=== PATIENT | female | born 1995 | race Caucasian/White ===

== ENCOUNTER 2021-03-03 13:52 | Emergency (ER) | payer OTHER, SELFPAY ==
--- NOTE | 2021-03-03 13:59 | PC.NURSE ---
Pt stated she needed to go to her car immediately after intake and walked out.
--- NOTE | 2021-03-03 14:17 | PC.NURSE ---
Pt never returned to dept.
== END 2021-03-04 04:39 | disposition left against medical advice (07) ==
LOC: ANHED 14:31
PROVIDERS: PCP Pediatrics
DX: Z53.21 Procedure and treatment not carried out due to patient leaving prior to being seen by health care provider (principal)
CPT/HCPCS: 99199

== ENCOUNTER 2021-06-13 08:06 | Emergency (ER) | payer OTHER, SELFPAY ==
--- NOTE | ~2021-06-13 | XR_ITS ---
EXAMINATION: XR pelvis 1-2V EXAM DATE: 06/13/2021 08:50 INDICATION: Fall On Lt Buttock,Post Pain And Bruising TECHNIQUE: Pelvis frontal projection(s) obtained and reviewed. There is no prior study for compariso n. FINDINGS: There are no acute pelvic fractures or dislocations identified. Sacrum, sacroiliac joints, sacral arcuate lines are intact. There is no subcutaneous gas. The soft tissue is unremarkable. There are no radiopaque foreign bodies. IMPRESSION: Unremarkable XR pelvis 1-2V exam. Reviewed, dictated and finalized at location D.
[2021-06-13 08:18] VITALS: BP 135/74; PULSE 99; RESP 16; TEMP 36.5; O2SAT 100
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
== END 2021-06-13 09:10 | disposition home or self-care (01) ==
PROVIDERS: Emergency Provider Registered Nurse
DX: S70.02XA Contusion of left hip, initial encounter (principal); V87.8XXA Person injured in other specified noncollision transport accidents involving motor vehicle (traffic), initial encounter; F17.290 Nicotine dependence, other tobacco product, uncomplicated
CPT/HCPCS: 72170; 81025; 99213; G0463

== ENCOUNTER 2022-12-21 10:36 | Emergency (ER) | payer SELFPAY ==
[2022-12-21 10:49] VITALS: BP 133/92; PULSE 107; RESP 16; TEMP 36.8
[2022-12-21 11:15] VITALS: BP 133/95; PULSE 92; RESP 16; O2SAT 100
[2022-12-21] MEDS: SODIUM CHLORIDE 0.9% IV 1,000 ML 999 ML IV CONT (11:54)
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
[2022-12-21] MEDS: ONDANSETRON INJ 4 MG/2 ML VIAL IV PUSH (12:00)
[2022-12-21] MEDS: PANTOPRAZOLE SODIUM IV 40 MG VIAL IV PUSH (12:00)
[2022-12-21 12:02] LABS: Basophils Absolute Auto 0.1 K/mm3 (0.0-0.1); Eosinophils Absolute Auto 0.1 K/mm3 (0-0.3); Eosinophils Percent Auto 1.1 % (0-4.4); Hematocrit 42.3 % (37.0-47.0); Hemoglobin 14.1 g/dL (12.0-15.0); Immature Granulocyte Absolute 0.04 K/mm3 (0.00-0.031); Immature Granulocyte Percent A 0.4 % (0-0.5); Lymphocytes Absolute Auto 1.01 K/mm3 (0.9-3.2); Lymphocytes Percent Auto 11.1 % (18.3-44.2); Mean Corpuscular HGB Conc 33.3 g/dl (32-36); Mean Corpuscular Hemoglobin 30.1 pg (26-34); Mean Corpuscular Volume 90.2 fl (80-100); Mean Platelet Volume 9.7 fl (7.4-10.4); Monocytes Percent Auto 11.4 % (2.6-8.5); Neutrophils Absolute Auto 6.9 K/mm3 (1.3-6.7); Platelet Count Result 275 k/mm3 (150-375); Red Blood Count 4.69 M/mm3 (4.2-5.4); Red Cell Distribution Width 13.7 % (11.5-14.5); White Blood Count 9.1 K/mm3 (4.5-10.0)
[2022-12-21 12:03] VITALS: BP 125/94; PULSE 81; RESP 22; O2SAT 98
[2022-12-21 12:11] LABS: Prothrombin Time 13.6 Seconds (11.1-14.7)
[2022-12-21 12:13] LABS: Add Urine Microscopic? YES; Appearance Urine Clear (Clear); Bacteria Urine Rare /hpf; Bilirubin Urine Negative (Negative); Blood Urine Negative (Negative); Color Urine Yellow (Yellow); Glucose Urine UA Negative (Negative); Ketones Urine 1+ mg/dL (Negative); Leukocyte Esterase Ur Negative LEU/UL (Negative); Nitrate Urine Negative (Negative); Non Pathogenic Casts 0-2; Protein Urine Trace mg/dL (Negative); Squamous Epithelial Cell Urine Occasional /hpf (Few); Urobilinogen Urine 0.2 mg/dL (<2.0); WBC Urine 0-5 /hpf
[2022-12-21 12:15] LABS: Alanine Aminotransferase 45 U/L (6-35); Alkaline Phosphatase 79 U/L (38-126); Anion Gap 12 mmol/L (8-16); Aspartate Amino Transferase 51 U/L (14-36); Bilirubin,Total 0.9 mg/dL (0.2-1.3); Blood Urea Nitrogen 11 mg/dL (7-17); Calcium 9.2 mg/dL (8.4-10.2); Carbon Dioxide 20 mmol/L (22-30); Chloride 102 mmol/L (98-107); Estimated CRCL calculation 105 ml/min; Estimated Glomerular Filt Rate > 60; Glucose 83 mg/dL (65-110); Magnesium 1.7 mg/dL (1.6-2.3); Phosphorus 2.8 mg/dL (2.5-4.5); Potassium 3.8 mmol/L (3.4-5.0); Sodium 134 mmol/L (137-145)
[2022-12-21 12:40] LABS: Ethanol 20 mg/dL (<10); Lactic Acid Reflex 2.3 mmol/L (0.7-2.0)
[2022-12-21 12:53] VITALS: BP 133/84; PULSE 113; RESP 14; O2SAT 100
[2022-12-21] MEDS: LORazepam INJ (*CRX) 2 MG/ML VIAL 1 MG IV PUSH (12:53)
[2022-12-21 14:25] VITALS: BP 130/80; PULSE 119; RESP 22; O2SAT 100
[2022-12-21 14:28] LABS: Benzodiazepines Screen Urine Negative (Negative)
[2022-12-21 14:30] LABS: Amphetamine Screen Urine Negative (Negative); Barbiturate Screen Urine Negative (Negative); Cannabinoid Screen Urine Positive (Negative); Cocaine Screen Urine Negative (Negative); Methadone Screen Urine Negative (Negative); Opiate Screen Urine Negative (Negative); Phencyclidine Screen Urine Negative (Negative)
--- NOTE | 2022-12-21 14:41 | PCCCNOTE ---
met with patient bedside,patient is alert and oriented x 4, I ADL and came to ER for Alcohol withdraw and wants hlp. CC met with patient whom is agreeable with a referral to Luis Armando with [facility]. CC printed facesheet and gave to Luis Armando. Luis Armando [phone], made aware that DR would like patient to be seen prior to dc. CC will continue to follow.
[2022-12-21 15:25] LABS: Reflex Lactic Acid Yes or No Add Lactic
[2022-12-21 15:35] VITALS: BP 129/78; PULSE 116; RESP 16; O2SAT 100
== END 2022-12-21 15:37 | disposition home or self-care (01) ==
PROVIDERS: Nurse Practitioner Family; Emergency Provider Emergency Medicine
DX: F10.239 Alcohol dependence with withdrawal, unspecified (principal); Y90.1 Blood alcohol level of 20-39 mg/100 ml; G47.30 Sleep apnea, unspecified; F17.290 Nicotine dependence, other tobacco product, uncomplicated
CPT/HCPCS: 36415; 80053; 80307; 81001; 83605; 83735; 84100; 85025; 85610; 96361; 96365; 96366; 96375; 99284; C9113; J2060; J2405; J3411; J3475; J7030

== ENCOUNTER 2024-06-16 09:14 | Emergency (ER) | payer SELFPAY ==
--- NOTE | ~2024-06-16 | US_ITS ---
EXAMINATION: US OB <=14 wk fetus w TV DATE: 06/16/2024 11:51 CDT INDICATION: Vaginal bleeding in early COMPARISON: None TECHNIQUE: Real-time transabdominal obstetric ultrasound. FINDINGS: 2 para 0 Estimated date of delivery by last menstrual period is 02/17/2025 The uterus measures 9.8 x 5.6 x 5.3 cm. A gestational sac is identified within the uterus. A pole is identified, with a crown-rump length that measures 1.35 cm, corresponding to an appro ximate gestational age of 7 weeks and 4 days. cardiac activity is identified at a rate of 160 bpm. The right ovary measures 3.4 x 3.2 x 1.8 cm. Right-sided corpus luteal cyst is suspected measuring 2. 3 cm in greatest dimension The left ovary measures 2.4 x 1.5 x 1.6 cm. The cervix measures approximately 4.7 cm in length, with trace free fluid Estimated date of delivery by ultrasound is 01/29/2025 IMPRESSION: Single intrauterine gestation with an approximate gestational age of 7 weeks and 4 days, with c ardiac activity identified. Trace free fluid within the cervix, as detailed above. Reviewed, dictated and finalized at location A. IMPRESSION: Single intrauterine gestation with an approximate gestational age of 7 weeks an d 4 days, with cardiac activity identified. Trace free fluid within the cervix, as detailed above.
--- OUTSIDE RECORDS SUMMARY | 2024-06-16 09:21 | XMS_ITS | Encounter Summary ---
Author Organization [facility] Address [address] [place] [address] Care Team Providers Care Information Support Project Manager Name Role Phone Unavailable Primary Care Provider Unavailabl e Encounter Details Date Type Department Care Team (Late st Contact Info) Description 04/29/1999 Outpatient Historical [facility] Pediatric[facility] [place] [address] [place] [address] Moises Guerrero Social History Tobacco Use Types Packs/Day Years Used Date Smoking Tobacco: Never Assessed Comments Unknown Sex and Gender Information Value Date Recorded Sex Assigned at Not on file Legal Sex Female 2:44 AM BANDER 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
--- OUTSIDE RECORDS SUMMARY | 2024-06-16 09:21 | XMS_ITS | Encounter Summary ---
Author Organization [facility] Address [address] [place] [address] Care Team Providers Care Proof Operator Name Role Phone Unavailable Primary Care Provider Unavailabl e Encounter Details Date Type Department Care Team (Late st Contact Info) Description 02/05/2000 Outpatient Historical [facility] Pediatrics [place] [address] [place] [address] Kashmir Gunn MD [address] [place] [address] Social History Tobacco Use Types Packs/Day Years Used Date Smoking Tobacco: Never Assessed Comments Unknown Sex and Gender Information Value Date Recorded Sex Assigned at Not on file Legal Sex Female 2:44 AM EVIDENCE SPECIALIST Gender Identity Not on file Sexual Orientation Not on file documented as of this encounter Plan of Treatment Not on file documented as of this encounter Visit Diagnoses Not on filedocumented in this encounter
--- OUTSIDE RECORDS SUMMARY | 2024-06-16 09:21 | XMS_ITS | Encounter Summary ---
Author Organization [facility] Address [address] [place] [address] Care Team Providers Care Fishing Captain Name Role Phone Unavailable Primary Care Provider Unavailabl e Encounter Details Date Type Department Care Team (Late st Contact Info) Description 05/29/1999 Outpatient Historical [facility] [place] [address] [place] [address] Moises Guerrero Social History Tobacco Use Types Packs/Day Years Used Date Smoking Tobacco: Never Assessed Comments Unknown Sex and Gender Information Value Date Recorded Sex Assigned at Not on file Legal Sex Female 2:44 AM TILE GRADER Gender Identity Not on file Sexual Orientation Not on file documented as of this encounter Plan of Treatment Not on file documented as of this encounter Visit Diagnoses Not on filedocumented in this encounter
--- OUTSIDE RECORDS SUMMARY | 2024-06-16 09:21 | XMS_ITS | Clinical Summary ---
Author Organization [facility] Address [address] [place] [address] Phone Care Team Providers Care Dry Paste Supervisor Name Role Phone Varun Chavez MD Primary Care Provider Allergies Active Allergy Reactions Criticality Noted Date Comments Sulfa Antibiotics Hives 11/13/2021 Medications amphetamine-dextro amphetamine (Adderall XR) 15 MG CAPSULE SR 24 HRIndications:Atte ntion deficit hyperactivity disorder (ADHD), predominantly inattentive type Take 1 Capsule by mouth every morning. 30 Capsule 3 Active Active Problems Problem Noted Date Diagnosed Date Generalized anxiety disorder 11/24/2021 MDD (major depressive disorder), recurrent episo de 11/24/2021 Family History Medical History Relation Name Comments Anxiety disorder Brother Christopher (27) Depression Brother Mykelopher (27) No Known Problems Father Óscar Anxiety disorder Half-Sister Eileen (19) Depression Half-Sister Eileen (19) Anxiety disorder Mother Luba Depression Mother Luba Anxiety disorder Sister Willie (28) Thyroid Cancer Sister Willie (28) Relation Name Status Comments Brother Mykelopher (27) Alive Father Óscar Alive Half-Sister Eileen (19) Alive Mother Luba Alive Sister Willei (28) Alive Social History Tobacco Use Types Packs/Day Years Used Date Smoking Tobacco: Never Passive Smoke Exposure: Never Smokeless Tobacco: Never Alcohol Use Standard Drinks/Week Comments Never 0 (1 standard drink = 0.6 oz pur e alcohol) Has never drank alcohol PHQ-2 Answer Date Recorded Total Score - Questions 1-9 0 10/30 Sexually Active Control Partners Comments Yes Male Comments No Sex and Gender Information Value Date Recorded Sex Assigned at Not on file Legal Sex Female 9:13 AM CDT Gender Identity Not on file Sexual Orientation Not on file Last Filed Vital Signs Vital Sign Reading Time Taken Comments Blood Pressure 110/68 05/14/2022 11:33 AM CDT Pulse 74 05/14/2022 11:33 AM CDT Temperature 36.5 C (97.7 F) 05/14/2022 11:33 AM CDT Respiratory Rate - - Oxygen Saturation 99% 05/14/2022 11:33 AM CDT Inhaled Oxygen Concentration - - Weight 54.4 kg (120 lb) 05/14/2022 11:33 AM CDT Height 162.6 cm (5' 4 ) 05/14/2022 11:33 AM CDT Body Mass Index 20.6 05/14/2022 11:33 AM CDT Plan of Treatment Health Maintenance Due Date Last Done Comments Hepatitis C Virus (HCV) Screening 1997 TdaP Immunization 1997 Human Papillomavirus (HPV) Immunization (1 - 3-dose series) 2012 Hepatitis B Immunization (1 of 3 - 19+ 3-dose series) 2016 Pap Smear 2018 SARS-COV-2 Immunization ( - 2023- season) 2023 Influenza Immunization (Se[place] on Ended) 2024 Respiratory Syncytial Virus (RSV) Immunization (Adult) (1 - 1-dose 75+ series) 2072 Meningococcal Immunization (ACWY) Aged Out No longer eligible based on patient's age to complete this topic Pneumococcal Immunization Combined Aged Out No longer eligible based on patient's age to complete this topic Rotavirus Immunization Aged Out No lo nger eligible based on patient's age to complete this topic Goals Goal Patient Goal Type Associated Problems Recent Progress Patient-Stated? Author reduce symptoms of anxiety and depression Behavioral Health On track(2021 2:25 PM CDT) No Sandra Rich LCSW Note: Goal/Objective: Reduce symptoms of anxiety and depression. Anticipated Time Frame for Goal Completion: 6 months Goal Reviewed with: patient Readiness to change: Thinking about making a change Department associated with goal: [facility] Steps to achieve goal: will attend counseling/psychotherapy sessions at least once monthly, at least 6 sessions, utilizing individual and/or group sessions to express thoughts and feelings. to identify, verbalize and process at least three contributing factors/triggers to anxiety and depression. to identify and verbalize at least three actions/skills to prevent and/or cope with anxiety and depression. to put into action, at least one time weekly, for one month, an action/skill to prevent and or cope with anxiety and depression. how I feel about myself Behavioral Health On track(2021 2:25 PM CDT) Yes Sandra Rich, [facility] Insurance MEDICAID [employer] Care Teams Dry Paste Supervisor Relationship Specialty Start Date End Date Varun Chavez MD [address] [place] [address] PCP - General Internal Medicine 11/13/21
--- OUTSIDE RECORDS SUMMARY | 2024-06-16 09:21 | XMS_ITS | Encounter Summary ---
Author Organization [facility] Address [address] [place] [address] Care Team Providers Care Excavator Operator Name Role Phone Unavailable Primary Care Provider Unavailabl e Encounter Details Date Type Department Care Team (Late st Contact Info) Description 12/17/1998 Outpatient Historical [facility] Pediatrics [place] [address] [place] [address] Moises Guerrero Social History Tobacco Use Types Packs/Day Years Used Date Smoking Tobacco: Never Assessed Comments Unknown Sex and Gender Information Value Date Recorded Sex Assigned at Not on file Legal Sex Female 2:44 AM GOLF CLUB FACER Gender Identity Not on file Sexual Orientation Not on file documented as of this encounter Plan of Treatment Not on file documented as of this encounter Visit Diagnoses Not on filedocumented in this encounter
--- OUTSIDE RECORDS SUMMARY | 2024-06-16 09:21 | XMS_ITS | Encounter Summary ---
Author Organization [facility] Address [address] [place] [address] Care Team Providers Care Physicist Cryogenics Name Role Phone Unavailable Primary Care Provider Unavailabl e Encounter Details Date Type Department Care Team (Late st Contact Info) Description 10/25/1998 Outpatient Historical [facility] Pediatrics [place] [address] [place] [address] Moises Guerrero Social History Tobacco Use Types Packs/Day Years Used Date Smoking Tobacco: Never Assessed Comments Unknown Sex and Gender Information Value Date Recorded Sex Assigned at Not on file Legal Sex Female 2:44 AM DRY STARCH 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
--- OUTSIDE RECORDS SUMMARY | 2024-06-16 09:21 | XMS_ITS | Encounter Summary ---
Author Organization [facility] Address [address] [place] [address] Care Team Providers Care Supervisor Aluminum Boat Assembly Name Role Phone Unavailable Primary Care Provider Unavailabl e Encounter Details Date Type Department Care Team (Late st Contact Info) Description 07/25/1999 Outpatient Historical [facility] Pediatrics [place] [address] [place] [address] Moises Guerrero Social History Tobacco Use Types Packs/Day Years Used Date Smoking Tobacco: Never Assessed Comments Unknown Sex and Gender Information Value Date Recorded Sex Assigned at Not on file Legal Sex Female 2:44 AM BEND SORTER Gender Identity Not on file Sexual Orientation Not on file documented as of this encounter Plan of Treatment Not on file documented as of this encounter Visit Diagnoses Not on filedocumented in this encounter
--- OUTSIDE RECORDS SUMMARY | 2024-06-16 09:21 | XMS_ITS | Encounter Summary ---
Author Organization [facility] Address [address] [place] [address] Care Team Providers Care Iron Bender Name Role Phone Unavailable Primary Care Provider Unavailabl e Encounter Details Date Type Department Care Team (Late st Contact Info) Description 02/13/2003 Outpatient Historical [facility] [address] [place] [address] Murtaza Mcnulty MD [address] [place] [address] Social History Tobacco Use Types Packs/Day Years Used Date Smoking Tobacco: Never Assessed Comments Unknown Sex and Gender Information Value Date Recorded Sex Assigned at Not on file Legal Sex Female 2:44 AM CORRECTIONAL PROGRAM SPECIALIST Gender Identity Not on file Sexual Orientation Not on file documented as of this encounter Plan of Treatment Not on file documented as of this encounter Visit Diagnoses Not on filedocumented in this encounter
--- OUTSIDE RECORDS SUMMARY | 2024-06-16 09:21 | XMS_ITS | Encounter Summary ---
Author Organization [facility] Address [address] [place] [address] Care Team Providers Care Printed Circuit Board Pcb Designer Name Role Phone Unavailable Primary Care Provider Unavailabl e Encounter Details Date Type Department Care Team (Late st Contact Info) Description 07/10/1998 Outpatient Historical [facility] Pediatrics [place] [address] [place] [address] Moises Guerrero Social History Tobacco Use Types Packs/Day Years Used Date Smoking Tobacco: Never Assessed Comments Unknown Sex and Gender Information Value Date Recorded Sex Assigned at Not on file Legal Sex Female 2:44 AM WEIGHT COUNT 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
--- OUTSIDE RECORDS SUMMARY | 2024-06-16 09:21 | XMS_ITS | Encounter Summary ---
Author Organization [facility] Address [address] [place] [address] Care Team Providers Care C Consultant Name Role Phone Unavailable Primary Care Provider Unavailabl e Encounter Details Date Type Department Care Team (Late st Contact Info) Description 11/28/1998 Outpatient Historical [facility] Pediatrics [place] [address] [place] [address] Moises Guerrero Social History Tobacco Use Types Packs/Day Years Used Date Smoking Tobacco: Never Assessed Comments Unknown Sex and Gender Information Value Date Recorded Sex Assigned at Not on file Legal Sex Female 2:44 AM PUPPY TRAINER Gender Identity Not on file Sexual Orientation Not on file documented as of this encounter Plan of Treatment Not on file documented as of this encounter Visit Diagnoses Not on filedocumented in this encounter
--- OUTSIDE RECORDS SUMMARY | 2024-06-16 09:21 | XMS_ITS | Encounter Summary ---
Author Organization [facility] Address [address] [place] [address] Care Team Providers Care Kit Assembler Name Role Phone Unavailable Primary Care Provider Unavailabl e Encounter Details Date Type Department Care Team (Late st Contact Info) Description 08/25/2001 Outpatient Historical [facility] Pediatrics [place] [address] [place] [address] Kashmir Gunn MD [address] [place] [address] Social History Tobacco Use Types Packs/Day Years Used Date Smoking Tobacco: Never Assessed Comments Unknown Sex and Gender Information Value Date Recorded Sex Assigned at Not on file Legal Sex Female 2:44 AM VINE PRUNER Gender Identity Not on file Sexual Orientation Not on file documented as of this encounter Plan of Treatment Not on file documented as of this encounter Visit Diagnoses Not on filedocumented in this encounter
--- OUTSIDE RECORDS SUMMARY | 2024-06-16 09:21 | XMS_ITS | Encounter Summary ---
Author Organization [facility] Address [address] [place] [address] Care Team Providers Care Sex Therapist Name Role Phone Unavailable Primary Care Provider Unavailabl e Encounter Details Date Type Department Care Team (Late st Contact Info) Description 08/11/1999 Outpatient Historical [facility] Pediatric[facility] [place] [address] [place] [address] Moises Guerrero Social History Tobacco Use Types Packs/Day Years Used Date Smoking Tobacco: Never Assessed Comments Unknown Sex and Gender Information Value Date Recorded Sex Assigned at Not on file Legal Sex Female 2:44 AM PIPE FITTER GAS PIPE Gender Identity Not on file Sexual Orientation Not on file documented as of this encounter Plan of Treatment Not on file documented as of this encounter Visit Diagnoses Not on filedocumented in this encounter
--- OUTSIDE RECORDS SUMMARY | 2024-06-16 09:21 | XMS_ITS | Encounter Summary ---
Author Organization [facility] Address [address] [place] [address] Care Team Providers Care Bindery Chief Name Role Phone Unavailable Primary Care Provider Unavailabl e Encounter Details Date Type Department Care Team (Late st Contact Info) Description 09/06/1998 Outpatient Historical [facility] Pediatrics [place] [address] [place] [address] Moises Guerrero Social History Tobacco Use Types Packs/Day Years Used Date Smoking Tobacco: Never Assessed Comments Unknown Sex and Gender Information Value Date Recorded Sex Assigned at Not on file Legal Sex Female 2:44 AM METALSMITH HELPER Gender Identity Not on file Sexual Orientation Not on file documented as of this encounter Plan of Treatment Not on file documented as of this encounter Visit Diagnoses Not on filedocumented in this encounter
--- OUTSIDE RECORDS SUMMARY | 2024-06-16 09:21 | XMS_ITS | Encounter Summary ---
Author Organization [facility] Address [address] [place] [address] Care Team Providers Care Cna Gna Name Role Phone Unavailable Primary Care Provider Unavailabl e Encounter Details Date Type Department Care Team (Late st Contact Info) Description 05/31/1998 Outpatient Historical [facility] Pediatrics [address] [place] [address] Moises Guerrero Social History Tobacco Use Types Packs/Day Years Used Date Smoking Tobacco: Never Assessed Comments Unknown Sex and Gender Information Value Date Recorded Sex Assigned at Not on file Legal Sex Female 2:44 AM COMPUTING SYSTEMS MECHANIC Gender Identity Not on file Sexual Orientation Not on file documented as of this encounter Plan of Treatment Not on file documented as of this encounter Procedures Procedure Name Priority Date/Time Associated Diagnosis Comments CHG POLIOVIRUS VACCINE LIVE ORAL VFC 05/31/1998 12:00 AM COMPUTING SYSTEMS MECHANIC documented in this encounter Visit Diagnoses Not on filedocumented in this encounter
--- OUTSIDE RECORDS SUMMARY | 2024-06-16 09:21 | XMS_ITS | Encounter Summary ---
Author Organization [facility] Address [address] [place] [address] Care Team Providers Care Track Sweeper Name Role Phone Unavailable Primary Care Provider Unavailabl e Encounter Details Date Type Department Care Team (Late st Contact Info) Description 07/09/2004 Outpatient Historical [facility] Pediatrics [address] [place] [address] Murtaza Mcnulty MD [address] [place] [address] Social History Tobacco Use Types Packs/Day Years Used Date Smoking Tobacco: Never Assessed Comments Unknown Sex and Gender Information Value Date Recorded Sex Assigned at Not on file Legal Sex Female 2:44 AM MANAGER FIXED INCOME Gender Identity Not on file Sexual Orientation Not on file documented as of this encounter Plan of Treatment Not on file documented as of this encounter Visit Diagnoses Not on filedocumented in this encounter
--- OUTSIDE RECORDS SUMMARY | 2024-06-16 09:21 | XMS_ITS | Encounter Summary ---
Author Organization [facility] Address [address] [place] [address] Care Team Providers Care Decorative Engraver Apprentice Name Role Phone Unavailable Primary Care Provider Unavailabl e Encounter Details Date Type Department Care Team (Late st Contact Info) Description 01/05/[address] [facility] Pediatrics [place] [address] [facility] [address] [place] [address] Kashmir Gunn MD [address] [facility] [address] [place] [address] Social History Tobacco Use Types Packs/Day Years Used Date Smoking Tobacco: Never Assessed Comments Unknown Sex and Gender Information Value Date Recorded Sex Assigned at Not on file Legal Sex Female 2:44 AM CORROSION CONTROL TECHNICIAN Gender Identity Not on file Sexual Orientation Not on file documented as of this encounter Plan of Treatment Not on file documented as of this encounter Visit Diagnoses Not on filedocumented in this encounter
--- OUTSIDE RECORDS SUMMARY | 2024-06-16 09:21 | XMS_ITS | Encounter Summary ---
Author Organization [facility] Address [address] [place] [address] Care Team Providers Care Crib Tender Name Role Phone Unavailable Primary Care Provider Unavailabl e Encounter Details Date Type Department Care Team (Late st Contact Info) Description 11/28/1998 Outpatient Historical [facility] Pediatrics [place] [address] [place] [address] Moises Guerrero Social History Tobacco Use Types Packs/Day Years Used Date Smoking Tobacco: Never Assessed Comments Unknown Sex and Gender Information Value Date Recorded Sex Assigned at Not on file Legal Sex Female 2:44 AM DYSLEXIA 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
--- OUTSIDE RECORDS SUMMARY | 2024-06-16 09:21 | XMS_ITS | Encounter Summary ---
Author Organization [facility] Address [address] [place] [address] Care Team Providers Care Candy Puller Name Role Phone Unavailable Primary Care Provider Unavailabl e Encounter Details Date Type Department Care Team (Late st Contact Info) Description 06/01/2000 Outpatient Historical [facility] Pediatrics [place] [address] [place] [address] Kashmir Gunn MD [address] [place] [address] Social History Tobacco Use Types Packs/Day Years Used Date Smoking Tobacco: Never Assessed Comments Unknown Sex and Gender Information Value Date Recorded Sex Assigned at Not on file Legal Sex Female 2:44 AM CERTIFIED PHARMACY TECH Gender Identity Not on file Sexual Orientation Not on file documented as of this encounter Plan of Treatment Not on file documented as of this encounter Visit Diagnoses Not on filedocumented in this encounter
--- OUTSIDE RECORDS SUMMARY | 2024-06-16 09:21 | XMS_ITS | Encounter Summary ---
Author Organization [facility] Address [address] [place] [address] Care Team Providers Care Candy Forming Machine Operator Name Role Phone Unavailable Primary Care Provider Unavailabl e Encounter Details Date Type Department Care Team (Late st Contact Info) Description 12/03/1998 Outpatient Historical [facility] Pediatrics [place] [address] [place] [address] Moises Guerrero Social History Tobacco Use Types Packs/Day Years Used Date Smoking Tobacco: Never Assessed Comments Unknown Sex and Gender Information Value Date Recorded Sex Assigned at Not on file Legal Sex Female 2:44 AM CALL CENTER RECRUITER Gender Identity Not on file Sexual Orientation Not on file documented as of this encounter Plan of Treatment Not on file documented as of this encounter Visit Diagnoses Not on filedocumented in this encounter
--- OUTSIDE RECORDS SUMMARY | 2024-06-16 09:21 | XMS_ITS | Encounter Summary ---
Author Organization [facility] Address [address] [place] [address] Care Team Providers Care Kiln Tester Name Role Phone Unavailable Primary Care Provider Unavailabl e Encounter Details Date Type Department Care Team (Late st Contact Info) Description 01/07/1998 Outpatient Historical [facility] Pediatrics [place] [address] [place] [address] Moises Guerrero Social History Tobacco Use Types Packs/Day Years Used Date Smoking Tobacco: Never Assessed Comments Unknown Sex and Gender Information Value Date Recorded Sex Assigned at Not on file Legal Sex Female 2:44 AM ETL TESTER Gender Identity Not on file Sexual Orientation Not on file documented as of this encounter Plan of Treatment Not on file documented as of this encounter Visit Diagnoses Not on filedocumented in this encounter
--- OUTSIDE RECORDS SUMMARY | 2024-06-16 09:21 | XMS_ITS | Encounter Summary ---
Author Organization [facility] Address [address] [place] [address] Care Team Providers Care Video Clerk Name Role Phone Unavailable Primary Care Provider Unavailabl e Encounter Details Date Type Department Care Team (Late st Contact Info) Description 04/03/2000 Outpatient Historical [facility] Pediatrics [place] [address] [facility] [address] [place] [address] Luis Conklin MD [address] [place] [address] Social History Tobacco Use Types Packs/Day Years Used Date Smoking Tobacco: Never Assessed Comments Unknown Sex and Gender Information Value Date Recorded Sex Assigned at Not on file Legal Sex Female 2:44 AM NURSE CLINICAL Gender Identity Not on file Sexual Orientation Not on file documented as of this encounter Plan of Treatment Not on file documented as of this encounter Visit Diagnoses Not on filedocumented in this encounter
--- OUTSIDE RECORDS SUMMARY | 2024-06-16 09:21 | XMS_ITS | Encounter Summary ---
Author Organization [facility] Address [address] [place] [address] Care Team Providers Care County Agricultural Agent Name Role Phone Unavailable Primary Care Provider Unavailabl e Encounter Details Date Type Department Care Team (Late st Contact Info) Description 06/06/2001 Outpatient Historical [facility] Pediatrics [place] [address] [facility] [address] [place] [address] Kashmir Gunn MD [address] [facility] [address] [place] [address] Social History Tobacco Use Types Packs/Day Years Used Date Smoking Tobacco: Never Assessed Comments Unknown Sex and Gender Information Value Date Recorded Sex Assigned at Not on file Legal Sex Female 2:44 AM FABRICATOR INDUSTRIAL FURNACE Gender Identity Not on file Sexual Orientation Not on file documented as of this encounter Plan of Treatment Not on file documented as of this encounter Visit Diagnoses Not on filedocumented in this encounter
--- OUTSIDE RECORDS SUMMARY | 2024-06-16 09:21 | XMS_ITS | Encounter Summary ---
Author Organization [facility] Address [address] [place] [address] Care Team Providers Care Coroner/Medical Examiner Name Role Phone Unavailable Primary Care Provider Unavailabl e Encounter Details Date Type Department Care Team (Late st Contact Info) Description 11/22/1998 Outpatient Historical [facility] [place], Authorized P NO ADDRESS ON FILE Face, neck, and scalp, except eye, abrasion or friction burn, without mention of infection (Primary Dx) Social History Tobacco Use Types Packs/Day Years Used Date Smoking Tobacco: Never Assessed Comments Unknown Sex and Gender Information Value Date Recorded Sex Assigned at Not on file Legal Sex Female 2:44 AM HAND WASHER Gender Identity Not on file Sexual Orientation Not on file documented as of this encounter Plan of Treatment Not on file documented as of this encounter Visit Diagnoses Diagnosis Face, neck, and scalp, except eye, abrasion or friction burn, without mention of infection- Primary documented in this encounter
--- OUTSIDE RECORDS SUMMARY | 2024-06-16 09:21 | XMS_ITS | Encounter Summary ---
Author Organization [facility] Address [address] [place] [address] Care Team Providers Care Application Support Developer Name Role Phone Unavailable Primary Care Provider Unavailabl e Encounter Details Date Type Department Care Team (Late st Contact Info) Description 04/09/1998 Outpatient Historical [facility] Pediatrics [place] [address] [place] [address] Moises Guerrero Social History Tobacco Use Types Packs/Day Years Used Date Smoking Tobacco: Never Assessed Comments Unknown Sex and Gender Information Value Date Recorded Sex Assigned at Not on file Legal Sex Female 2:44 AM HARVESTER 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
--- OUTSIDE RECORDS SUMMARY | 2024-06-16 09:21 | XMS_ITS | Encounter Summary ---
Author Organization [facility] Address [address] [place] [address] Care Team Providers Care Land Measurer Name Role Phone Unavailable Primary Care Provider Unavailabl e Encounter Details Date Type Department Care Team (Late st Contact Info) Description 01/06/1999 Outpatient Historical [facility] Pediatrics [place] [address] [place] [address] Moises Guerrero Social History Tobacco Use Types Packs/Day Years Used Date Smoking Tobacco: Never Assessed Comments Unknown Sex and Gender Information Value Date Recorded Sex Assigned at Not on file Legal Sex Female 2:44 AM ASSISTANT COUNTY ATTORNEY Gender Identity Not on file Sexual Orientation Not on file documented as of this encounter Plan of Treatment Not on file documented as of this encounter Visit Diagnoses Not on filedocumented in this encounter
--- OUTSIDE RECORDS SUMMARY | 2024-06-16 09:21 | XMS_ITS | Encounter Summary ---
Author Organization [facility] Address [address] [place] [address] Care Team Providers Care Transportation Planning Engineer Name Role Phone Unavailable Primary Care Provider Unavailabl e Encounter Details Date Type Department Care Team (Late st Contact Info) Description 08/23/1998 Outpatient Historical [facility] Pediatrics [place] [address] [place] [address] Moises Guerrero Social History Tobacco Use Types Packs/Day Years Used Date Smoking Tobacco: Never Assessed Comments Unknown Sex and Gender Information Value Date Recorded Sex Assigned at Not on file Legal Sex Female 2:44 AM COMPTROLLER Gender Identity Not on file Sexual Orientation Not on file documented as of this encounter Plan of Treatment Not on file documented as of this encounter Visit Diagnoses Not on filedocumented in this encounter
--- OUTSIDE RECORDS SUMMARY | 2024-06-16 09:21 | XMS_ITS | Encounter Summary ---
Author Organization [facility] Address [address] [place] [address] Care Team Providers Care Continuous Drier Helper Name Role Phone Unavailable Primary Care Provider Unavailabl e Encounter Details Date Type Department Care Team (Late st Contact Info) Description 05/31/1998 Outpatient Historical [facility] Pediatrics [address] [place] [address] Moises Guerrero Social History Tobacco Use Types Packs/Day Years Used Date Smoking Tobacco: Never Assessed Comments Unknown Sex and Gender Information Value Date Recorded Sex Assigned at Not on file Legal Sex Female 2:44 AM SPECIAL DELIVERY CLERK Gender Identity Not on file Sexual Orientation Not on file documented as of this encounter Plan of Treatment Not on file documented as of this encounter Procedures Procedure Name Priority Date/Time Associated Diagnosis Comments CHG HEPATITIS B VACCINE PED ADOL IM 3 DOSE VFC 05/31/1998 12:00 AM SPECIAL DELIVERY CLERK CHG DTAP VACCINE <7 YO IM VFC 05/31/1998 12:00 AM SPECIAL DELIVERY CLERK documented in this encounter Visit Diagnoses Not on filedocumented in this encounter
--- OUTSIDE RECORDS SUMMARY | 2024-06-16 09:21 | XMS_ITS | Encounter Summary ---
Author Organization [facility] Address [address] [place] [address] Care Team Providers Care Bankruptcy Assistant Name Role Phone Unavailable Primary Care Provider Unavailabl e Encounter Details Date Type Department Care Team (Late st Contact Info) Description 09/21/2000 Outpatient Historical [facility] Pediatrics [place] [address] [facility] [address] [place] [address] Edgar Morton MD [address] [facility] [address] [place] [address] Social History Tobacco Use Types Packs/Day Years Used Date Smoking Tobacco: Never Assessed Comments Unknown Sex and Gender Information Value Date Recorded Sex Assigned at Not on file Legal Sex Female 2:44 AM FILER REPAIRER Gender Identity Not on file Sexual Orientation Not on file documented as of this encounter Plan of Treatment Not on file documented as of this encounter Visit Diagnoses Not on filedocumented in this encounter
--- OUTSIDE RECORDS SUMMARY | 2024-06-16 09:21 | XMS_ITS | Encounter Summary ---
Author Organization [facility] Address [address] [place] [address] Care Team Providers Care Transition Mgr Name Role Phone Unavailable Primary Care Provider Unavailabl e Encounter Details Date Type Department Care Team (Late st Contact Info) Description 03/05/2001 Outpatient Historical [facility] Pediatrics [place] [address] [facility] [address] [place] [address] Luis Conklin MD [address] [place] [address] Social History Tobacco Use Types Packs/Day Years Used Date Smoking Tobacco: Never Assessed Comments Unknown Sex and Gender Information Value Date Recorded Sex Assigned at Not on file Legal Sex Female 2:44 AM NIGHT TIME NANNY Gender Identity Not on file Sexual Orientation Not on file documented as of this encounter Plan of Treatment Not on file documented as of this encounter Visit Diagnoses Not on filedocumented in this encounter
--- OUTSIDE RECORDS SUMMARY | 2024-06-16 09:21 | XMS_ITS | Encounter Summary ---
Author Organization [facility] Address [address] [place] [address] Care Team Providers Care Strip Machine Tender Name Role Phone Unavailable Primary Care Provider Unavailabl e Encounter Details Date Type Department Care Team (Late st Contact Info) Description 08/23/1998 Outpatient Historical [facility] Pediatrics [place] [address] [place] [address] Moises Guerrero Social History Tobacco Use Types Packs/Day Years Used Date Smoking Tobacco: Never Assessed Comments Unknown Sex and Gender Information Value Date Recorded Sex Assigned at Not on file Legal Sex Female 2:44 AM UTILITY PLANT OPERATIVE Gender Identity Not on file Sexual Orientation Not on file documented as of this encounter Plan of Treatment Not on file documented as of this encounter Visit Diagnoses Not on filedocumented in this encounter
--- OUTSIDE RECORDS SUMMARY | 2024-06-16 09:21 | XMS_ITS | Encounter Summary ---
Author Organization [facility] Address [address] [place] [address] Care Team Providers Care Manager Books Name Role Phone Unavailable Primary Care Provider Unavailabl e Encounter Details Date Type Department Care Team (Late st Contact Info) Description 08/15/1999 Outpatient Historical [facility] Pediatrics [place] [address] [place] [address] Moises Guerrero Social History Tobacco Use Types Packs/Day Years Used Date Smoking Tobacco: Never Assessed Comments Unknown Sex and Gender Information Value Date Recorded Sex Assigned at Not on file Legal Sex Female 2:44 AM ASSISTANT DIRECTOR Gender Identity Not on file Sexual Orientation Not on file documented as of this encounter Plan of Treatment Not on file documented as of this encounter Visit Diagnoses Not on filedocumented in this encounter
--- OUTSIDE RECORDS SUMMARY | 2024-06-16 09:21 | XMS_ITS | Encounter Summary ---
Author Organization [facility] Address [address] [place] [address] Care Team Providers Care Cps Team Lead Name Role Phone Unavailable Primary Care Provider Unavailabl e Encounter Details Date Type Department Care Team (Late st Contact Info) Description 11/04/2004 Outpatient Historical [facility] Pediatrics [address] [place] [address] Murtaza Mcnulty MD [address] [place] [address] Social History Tobacco Use Types Packs/Day Years Used Date Smoking Tobacco: Never Assessed Comments Unknown Sex and Gender Information Value Date Recorded Sex Assigned at Not on file Legal Sex Female 2:44 AM CHILD CUSTODY 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
--- OUTSIDE RECORDS SUMMARY | 2024-06-16 09:21 | XMS_ITS | Encounter Summary ---
Author Organization [facility] Address [address] [place] [address] Care Team Providers Care Tile Conduit Layer Name Role Phone Unavailable Primary Care Provider Unavailabl e Encounter Details Date Type Department Care Team (Late st Contact Info) Description 03/26/2000 Outpatient Historical [facility] Pediatrics [place] [address] [facility] [address] [place] [address] Kashmir Gunn MD [address] [facility] [address] [place] [address] Social History Tobacco Use Types Packs/Day Years Used Date Smoking Tobacco: Never Assessed Comments Unknown Sex and Gender Information Value Date Recorded Sex Assigned at Not on file Legal Sex Female 2:44 AM MICRO COMPUTER DATA PROCESSOR Gender Identity Not on file Sexual Orientation Not on file documented as of this encounter Plan of Treatment Not on file documented as of this encounter Visit Diagnoses Not on filedocumented in this encounter
--- OUTSIDE RECORDS SUMMARY | 2024-06-16 09:21 | XMS_ITS | Encounter Summary ---
Author Organization [facility] Address [address] [place] [address] Care Team Providers Care Sports Administrator Name Role Phone Unavailable Primary Care Provider Unavailabl e Encounter Details Date Type Department Care Team (Late st Contact Info) Description 01/14/1998 Outpatient Historical [facility] Pediatrics [place] [address] [place] [address] Moises Guerrero Social History Tobacco Use Types Packs/Day Years Used Date Smoking Tobacco: Never Assessed Comments Unknown Sex and Gender Information Value Date Recorded Sex Assigned at Not on file Legal Sex Female 2:44 AM VICE PRESIDENT NETWORK Gender Identity Not on file Sexual Orientation Not on file documented as of this encounter Plan of Treatment Not on file documented as of this encounter Visit Diagnoses Not on filedocumented in this encounter
--- OUTSIDE RECORDS SUMMARY | 2024-06-16 09:21 | XMS_ITS | Clinical Summary ---
Author Organization [facility] Address [address] [place] [address] Phone Care Team Providers Care Ed Transporter Name Role Phone Unavailable Primary Care Provider Unavailabl e Allergies Active Allergy Reactions Criticality Noted Date Comments Sulfa (Sulfonamide Antibiotics) Rash High 11/30 Medications Norethindrn A-E estradiol-Iron (MICROGESTIN FE 1.5/, 28,) 1.5 mg-30 mcg (21)/75 mg (7) tablet Take 1 Tablet by mouth daily. 1 Package 11 01/28/2016 Active Active Problems No known active problems Family History Medical History Relation Name Comments Hypertension Maternal Grandfather Hypertension Maternal Grandmother Stroke Maternal Grandmother Breast Cancer Other ggpgrandmother Relation Name Status Comments Maternal Grandfather Maternal Grandmother Other ggpgrandmother Alive Social History Tobacco Use Types Packs/Day Years Used Date Smoking Tobacco: Never Smokeless Tobacco: Never Alcohol Use Standard Drinks/Week Comments No 0 (1 standard drink = 0.6 oz pur e alcohol) Comments No Sex and Gender Information Value Date Recorded Sex Assigned at Not on file Legal Sex Female 2:44 AM BAND AND CUFF CUTTER Gender Identity Not on file Sexual Orientation Not on file Occupation Industry Job Start Date Job End Date Not on file Not on file Not on file Not on file Last Filed Vital Signs Vital Sign Reading Time Taken Comments Blood Pressure 110/80 01/28/2016 11:54 AM BAND AND CUFF CUTTER Pulse 101 01/28/2016 11:54 AM BAND AND CUFF CUTTER Temperature 37.1 C (98.7 F) 01/28/2016 11:54 AM BAND AND CUFF CUTTER Respiratory Rate 18 01/28/2016 11:54 AM BAND AND CUFF CUTTER Oxygen Saturation 97% 01/28/2016 11:54 AM BAND AND CUFF CUTTER Inhaled Oxygen Concentration - - Weight 61.7 kg (136 lb) 01/28/2016 11:54 AM BAND AND CUFF CUTTER Height 160 cm (5' 3 ) 01/28/2016 11:54 AM BAND AND CUFF CUTTER Body Mass Index 24.09 01/28/2016 11:54 AM BAND AND CUFF CUTTER Plan of Treatment Health Maintenance Due Date Last Done Comments HPV VACCINES (1 - 3-dose series) 2012 DTAP/TDAP/TD VACCINES (1 - Tdap) 2016 HEPATITIS B VACCINES (1 of 3 - 19+ 3-dose series) 10/31 CERVICAL CANCER SCREENING 2018 HPV/Cotest (21-29) 2018 PAP SMEAR 2018 INFLUENZA VACCINE (#1) 2023
--- OUTSIDE RECORDS SUMMARY | 2024-06-16 09:21 | XMS_ITS | Encounter Summary ---
Author Organization [facility] Address [address] [place] [address] Care Team Providers Care Cashier Gambling Name Role Phone Unavailable Primary Care Provider Unavailabl e Encounter Details Date Type Department Care Team (Late st Contact Info) Description 06/12/1999 Outpatient Historical [facility] [place] [address] [place] [address] Moises Guerrero Social History Tobacco Use Types Packs/Day Years Used Date Smoking Tobacco: Never Assessed Comments Unknown Sex and Gender Information Value Date Recorded Sex Assigned at Not on file Legal Sex Female 2:44 AM BUILDINGS AND GROUNDS COORDINATOR Gender Identity Not on file Sexual Orientation Not on file documented as of this encounter Plan of Treatment Not on file documented as of this encounter Visit Diagnoses Not on filedocumented in this encounter
--- OUTSIDE RECORDS SUMMARY | 2024-06-16 09:21 | XMS_ITS | Encounter Summary ---
Author Organization [facility] Address [address] [place] [address] Care Team Providers Care Automotive Detailer Name Role Phone Unavailable Primary Care Provider Unavailabl e Encounter Details Date Type Department Care Team (Late st Contact Info) Description 05/28/1998 Outpatient Historical [facility] Pediatrics [place] [address] [place] [address] Moises Guerrero Social History Tobacco Use Types Packs/Day Years Used Date Smoking Tobacco: Never Assessed Comments Unknown Sex and Gender Information Value Date Recorded Sex Assigned at Not on file Legal Sex Female 2:44 AM ASSISTANT PRODUCTION MANAGER Gender Identity Not on file Sexual Orientation Not on file documented as of this encounter Plan of Treatment Not on file documented as of this encounter Visit Diagnoses Not on filedocumented in this encounter
--- OUTSIDE RECORDS SUMMARY | 2024-06-16 09:21 | XMS_ITS ---
Author Organization [facility] Address [address] [place] [address] Phone Care Team Providers Care Shoe Laster Name Role Phone Varun Chavez MD Primary Care Provider [facility] Status:Enrolled (Active) Start date:03/29/2024 Enrollment date:03/29/2024 Related social drivers of health:Intimate Partner Violence, Social Connections, Alcohol Use, Financial Resource Strain, Stress, Physical Activity, Food Insecurity, Transportation Needs, Housing Stability, Utilities Continued Care and Services Coordination
--- OUTSIDE RECORDS SUMMARY | 2024-06-16 09:22 | XMS_ITS | Encounter Summary ---
Author Organization [facility] Address [address] [place] [address] Care Team Providers Care Polishing Machine Tender Name Role Phone Unavailable Primary Care Provider Unavailabl e Encounter Details Date Type Department Care Team (Late st Contact Info) Description 06/04/2003 Outpatient Historical [facility] Pediatric[facility] [address] [place] [address] Murtaza Mcnulty MD [address] [place] [phone] Social History Tobacco Use Types Packs/Day Years Used Date Smoking Tobacco: Never Assessed Comments Unknown Sex and Gender Information Value Date Recorded Sex Assigned at Not on file Legal 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
--- OUTSIDE RECORDS SUMMARY | 2024-06-16 09:22 | XMS_ITS | Encounter Summary ---
Author Organization [facility] Address [address] [place] [address] Care Team Providers Care Director Epidemiology Name Role Phone Unavailable Primary Care Provider Unavailabl e Encounter Details Date Type Department Care Team (Late st Contact Info) Description 02/12/2004 Outpatient Historical [facility] Pediatric[facility] [address] [place] [address] Murtaza Mcnulty MD [address] [place] [address] Social History Tobacco Use Types Packs/Day Years Used Date Smoking Tobacco: Never Assessed Comments Unknown Sex and Gender Information Value Date Recorded Sex Assigned at Not on file 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
--- OUTSIDE RECORDS SUMMARY | 2024-06-16 09:22 | XMS_ITS | Encounter Summary ---
Author Organization [facility] Address 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
--- OUTSIDE RECORDS SUMMARY | 2024-06-16 09:22 | XMS_ITS | Encounter Summary ---
Author Organization [facility] Address [address] [place] [address] Care Team Providers Care Urgent Care Name Role Phone Unavailable Primary Care Provider Unavailabl e Encounter Details Date Type Department Care Team (Late st Contact Info) Description 11/15/2003 Outpatient Historical [facility] [place] [address] [facility] [address] [place] [address] Kashmir Gunn MD [address] [facility] [address] [place] [address] Social History Tobacco Use Types Packs/Day Years Used Date Smoking Tobacco: Never Assessed Comments Unknown Sex and Gender Information Value Date Recorded Sex Assigned at Not on file 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
--- OUTSIDE RECORDS SUMMARY | 2024-06-16 09:22 | XMS_ITS | Data Portability ---
Author Organization [place] - [employer], Main Office Address [address] [place] [address] Assessment No assessment recorded. Plan of Treatment Reminders Order Date Submit Date Provider Last Modified By Organization Details Last Modified Time Details Appointments None record ed. Lab None record ed. Referral None record ed. Procedures None record ed. Surgeries None record ed. Imaging None record ed. Medication Orders None record ed. Patient TargetsNo targets recorded. Patient InstructionsNo instructions recorded. Reason for Referral None Reported. Results Created Date Observation Date Name Description Value Unit Range Abnormal Flag Note LastModifiedBy Organization Detail LastModifiedTime 08/03/1908/02/2020 glyco hemog lobin , total , blood HA1C 5.4 % 4.0-6. 0 Diabe gaby Scree alison Crite shemar: <5.7% Consi stent with absen ce of diabe gaby 5.7-6 .4% Consi stent with incre ased risk for diabe gaby (pred iabet es) >OR=6 .5% Consi stent with diabe gaby REFER ENCE: Diabe gaby Care 2016, 39(Shaw ppl.1 ):s13 -s22 Not Available [facility] (Lab) [address] [place], [address], 08/02/2020 21:21:32 08/03/1908/02/2020 TSH + free T4, serum thyroid-stim ulating hormone 1.870 uIU/m L 0.465- 4.680 Not Available [facility] (Lab) [address] [place], [address], 08/02/2020 18:47:19 08/03/1908/02/2020 T4, free, serum free T4 0.94 NG/dL 0.78-2 .19 Not Available [facility] (Lab) [address] [place], [address], 08/02/2020 18:13:37 08/03/19 21 08/02/2020 pregn elio test, serum or plasm a human chorionic gonadotropin <2.39 mIU/m L 0.00-4 .82 WEEKS OF PREGN ELIO REFER ENCE RANGE S 4 420 TO 6,230 5 620 TO 29,30 0 6 3,660 TO 108,0 00 7 10,90 0 TO 148,0 00 8 30,70 0 TO 184,0 00 9 67,20 0 TO 169,0 00 10 30,00 0 TO 167,0 00 14 15,00 0 TO 92,10 0 15 10,60 0 TO 64,20 0 16 9,000 TO 52,80 0 17 6,700 TO 47,10 0 18 6,100 TO 42,10 0 19 6,800 TO 42,90 0 Not Available [facility] (Lab) [address] [place], [address], 08/02/2020 18:13:32 08/03/19 21 08/02/2020 vitam in D, 25-hy droxy , total , serum vd25oh 46.6 NG/mL 30-100 Vitam in D Statu s: Defic ient: <20 ng/mL Insuf ficie nt: 20-29 ng/mL Suffi cient : 30-10 0 ng/mL Not Available [facility] (Lab) [address] [place], [address], 08/02/2020 18:12:47 08/03/19 21 08/02/2020 lipid panel , serum cholesterol 127 mg/dL 140-19 9 low NIH JASON NSUS RECOM MENDA TION FOR GLENIS STERO L: ADULT CHILD LOW RISK: <200 <170 BORDE RLINE : <200- 239 ----- HIGH RISK: >240 >200 Not Available [facility] (Lab) [address] [place], [address], 08/02/2020 17:46:51 08/03/19 21 08/02/2020 lipid panel , serum triglyceride s 62 mg/dL 0-150 NIH JASON NSUS REPOR T RECOM MENDA TION FOR TRIGL YCERI RENA: ADULT CHILD LOW RISK: <150 ----- BODER LINE: 150-1 99 ----- HIGH RISK: >200 ----- Not Available [facility] (Lab) [address] [place], [address], 08/02/2020 17:46:51 08/03/19 21 08/02/2020 lipid panel , serum HDL cholesterol 53 mg/dL 40- Not Available [facility] (Lab) [address] [place], [address], 08/02/2020 17:46:51 08/03/19 21 08/02/2020 lipid panel , serum LDL cholesterol, calculated 62 mg/dL 0-130 NIH JASON NSUS REPOR T RECOM MENDA TIONS FOR LDL: ADULT CHILD LOW RISK <130 <110 (OPTI MAL LDL) <100 ----- BORDE RLINE : 130-1 59 ----- HIGH RISK: >160 >130 A TRIGL YCERI DE RESUL T >400 INVAL IDATE S THE CALCU LATIO N FOR LDL FRACT IONAT ION - THE LDL RESUL T WILL NOT BE REPOR KELI. Not Available [facility] (Lab) [address] [place], [address], 08/02/2020 17:46:51 08/03/1908/02/2020 CMP, serum or plasm a sodium 139 mmol/ L 137-14 5 Not Available [facility] (Lab) [address] [place], [address], 08/02/2020 17:46:43 08/03/19 21 08/02/2020 CMP, serum or plasm a potassium 4.3 mmol/ L 3.5-5. 1 Not Available [facility] (Lab) [address] [place], [address], 08/02/2020 17:46:43 08/03/19 21 08/02/2020 CMP, serum or plasm a chloride 104 mmol/ L 98-107 Not Available [facility] (Lab) [address] [place], [address], 08/02/2020 17:46:43 08/03/19 21 08/02/2020 CMP, serum or plasm a carbon dioxide 29 mmol/ L 22-30 Not Available [facility] (Lab) [address] [place], [address], 08/02/2020 17:46:43 08/03/19 21 08/02/2020 CMP, serum or plasm a agap 10.3 mmol/ L 14-22 low Not Available [facility] (Lab) [address] [place], [address], 08/02/2020 17:46:43 08/03/19 21 08/02/2020 CMP, serum or plasm a glucose 75 mg/dL 70-99 Not Available [facility] (Lab) [address] [place], [address], 08/02/2020 17:46:43 08/03/19 21 08/02/2020 CMP, serum or plasm a BUN 10 mg/dL 8-19 Not Available [facility] (Lab) [address] [place], [address], 08/02/2020 17:46:43 08/03/19 21 08/02/2020 CMP, serum or plasm a creatinine 0.70 mg/dL 0.66-1 .25 Not Available [facility] (Lab) [address] [place], [address], 08/02/2020 17:46:43 08/03/19 21 08/02/2020 CMP, serum or plasm a GFR >60 Refer ence Range : [place] ge GFR Healt hy Adult : >60 mL/mi n/1.7 3 m2 Chron ic Kidne y Disea se: 15-60 mL/mi n/1.7 3 m2 Kidne y Failu re: <15/m L/min /1.73 m2 www.n iddk. nih.g ov MDRD study equat ion hasn' t been valid ated in child shea <18 yrs of age, pregn ant women , the elder ly >85 yrs of age, or in some racia l or ethni c subgr oups, suc as Hispa nics. Outsi de the valid ated vanda eters , estim ated GFR is less accur ate requi ring clini valarie judgm ent on a case by case basis . Clini valarie inter preta tion for other races and ages must be made by the clini smiley . Futhe rmore , any of th e limit ation s with the use of serum creat inine relat ed to nutri tom l statu s o r medic ation usage hasn' t accou nted for the MDRD Study equat ion. For perso ns < 18 yrs of age, a pedia tric GFR calcu lator can be locat ed on the [facility] websi te: https ://celeste w.germán graham.o rg/pr ofess ional s/kdo qi/gf r_cal culat or Not Available [facility] (Lab) [address] [place], [address], 08/02/2020 17:46:43 08/03/1908/02/2020 CMP, serum or plasm a alkaline phosphatase 51 U/L 38-126 Not Available [facility] (Lab) [address] [place], [address], 08/02/2020 17:46:43 08/03/1908/02/2020 CMP, serum or plasm a alanine aminotransfe rase 12 U/L 0-35 Not Available [facility] (Lab) [address] [place], [address], 08/02/2020 17:46:43 08/03/19 21 08/02/2020 CMP, serum or plasm a aspartate aminotransfe rase 21 U/L 15-37 Not Available [facility] (Lab) [address] [place], [address], 08/02/2020 17:46:43 08/03/19 21 08/02/2020 CMP, serum or plasm a bilirubin, total 0.40 mg/dL 0.20-1 .30 Not Available [facility] (Lab) [address] [place], [address], 08/02/2020 17:46:43 08/03/19 21 08/02/2020 CMP, serum or plasm a calcium 9.7 mg/dL 8.4-10 .2 Not Available [facility] (Lab) [address] [place], [address], 08/02/2020 17:46:43 08/03/1908/02/2020 CMP, serum or plasm a total protein 7.3 g/dL 6.3-8. 2 Not Available [facility] (Lab) [address] [place], [address], 08/02/2020 17:46:43 08/03/1908/02/2020 CMP, serum or plasm a albumin 4.7 g/dL 3.4-5. 0 Not Available [facility] (Lab) [address] [place], [address], 08/02/2020 17:46:43 08/03/1908/02/2020 CMP, serum or plasm a globulin 2.6 g/dL 2.6-4. 2 Not Available [facility] (Lab) [address] [place], [address], 08/02/2020 17:46:43 08/03/1908/02/2020 CMP, serum or plasm a A/G ratio 1.8 ratio 1.0-2. 0 Not Available [facility] (Lab) [address] [place], [address], 08/02/2020 17:46:43 08/03/19 21 08/02/2020 urina lysis compl ete, refle x cultu re color light- yellow Not Available [facility] (Lab) [address] [place], [address], 08/02/2020 17:27:27 08/03/19 21 08/02/2020 urina lysis compl ete, refle x cultu re appear turbid abnormal Not Available [facility] (Lab) [address] [place], [address], 08/02/2020 17:27:27 08/03/19 21 08/02/2020 urina lysis compl ete, refle x cultu re specific gravity 1.021 1.001- 1.030 Not Available [facility] (Lab) [address] [place], [address], 08/02/2020 17:27:27 08/03/19 21 08/02/2020 urina lysis compl ete, refle x cultu re pH 7.5 pH_un its 5.0-9. 0 Not Available [facility] (Lab) [address] [place], [address], 08/02/2020 17:27:27 08/03/19 21 08/02/2020 urina lysis compl ete, refle x cultu re leukocytes negati ve carmencita/u L negati ve- Not Available [facility]Lab[facility] [address] [facility] [place], [address], 08/02/2020 17:27:27 08/03/19 21 08/02/2020 urina lysis compl ete, refle x cultu re nitrite negati ve negati ve- Not Available [facility] (Lab) [address] [place], [address], 08/02/2020 17:27:27 08/03/19 21 08/02/2020 urina lysis compl ete, refle x cultu re protein negati ve mg/dL negati ve- Not Available [facility] (Lab) [address] [place], [address], 08/02/2020 17:27:27 08/03/19 21 08/02/2020 urina lysis compl ete, refle x cultu re glucose normal mg/dL normal - Not Available [facility] (Lab) [address] [place], [address], 08/02/2020 17:27:27 08/03/19 21 08/02/2020 urina lysis compl ete, refle x cultu re ketones negati ve mg/dL negati ve- Not Available [facility] (Lab) [address] [place], [address], 08/02/2020 17:27:27 08/03/19 21 08/02/2020 urina lysis compl ete, refle x cultu re urobilinogen normal mg/dL normal - Not Available [facility] (Lab) [address] [place], [address], 08/02/2020 17:27:27 08/03/19 21 08/02/2020 urina lysis compl ete, refle x cultu re bilirubin negati ve mg/dL negati ve- Not Available [facility] (Lab) [address] [place], [address], 08/02/2020 17:27:27 08/03/19 21 08/02/2020 urina lysis compl ete, refle x cultu re blood negati ve mg/dL negati ve- Not Available [facility] (Lab) [address] [place], [address], 08/02/2020 17:27:27 06/0408/02/2020 urina lysis compl ete, refle x cultu re white blood cells 0-8 /i??h pfi?? 0-8 Not Available [facility] (Lab) [address] [place], [address], 08/02/2020 17:27:27 08/03/19 21 08/02/2020 urina lysis compl ete, refle x cultu re red blood cells 0-4 /i??h pfi?? 0-4 Not Available [facility] (Lab) [address] [place], [address], 08/02/2020 17:27:27 08/03/19 21 08/02/2020 urina lysis compl ete, refle x cultu re bacteria none Not Available [facility] (Lab) [address] [place], [address], 08/02/2020 17:27:27 08/03/19 21 08/02/2020 urina lysis compl ete, refle x cultu re squamous epithelial modera te /i??l pfi?? abnormal Not Available [facility] (Lab) [address] [place], [address], 08/02/2020 17:27:27 08/03/19 21 08/02/2020 urina lysis compl ete, refle x cultu re amorphous crystal occasi onal /i??h pfi?? abnormal Not Available [facility] (Lab) [address] [place], [address], 08/02/2020 17:27:27 08/03/19 21 08/02/2020 CBC w/ auto diff white blood cells 11.5 x10'3 /uL 4.2-10 .8 high Not Available [facility] (Lab) [address] [place], [address], 08/02/2020 16:48:23 08/03/19 21 08/02/2020 CBC w/ auto diff red blood cells 4.54 x10'6 /uL 3.80-5 .20 Not Available [facility] (Lab) [address] [place], [address], 08/02/2020 16:48:23 08/03/19 21 08/02/2020 CBC w/ auto diff hemoglobin 13.4 g/dL 12.0-1 5.6 Not Available [facility] (Lab) [address] [place], [address], 08/02/2020 16:48:23 08/03/19 21 08/02/2020 CBC w/ auto diff hematocrit 40.3 % 35.7-4 5.7 Not Available [facility] (Lab) [address] [place], [address], 08/02/2020 16:48:23 08/03/19 21 08/02/2020 CBC w/ auto diff mean red cell volume 88.8 fL 82.0-9 9.0 Not Available [facility] (Lab) [address] [place], [address], 08/02/2020 16:48:23 08/03/19 21 08/02/2020 CBC w/ auto diff mean red cell hemoglobin 29.5 pg 27.0-3 3.0 Not Available [facility] (Lab) [address] [place], [address], 08/02/2020 16:48:23 08/03/19 21 08/02/2020 CBC w/ auto diff mean RBC HGB concentratio n 33.3 g/dL 31.0-3 6.0 Not Available [facility] (Lab) [address] [place], [address], 08/02/2020 16:48:23 08/03/19 21 08/02/2020 CBC w/ auto diff red cell distribution width 13.2 % 11.8-1 5.5 Not Available [facility] (Lab) [address] [place], [address], 08/02/2020 16:48:23 08/03/19 21 08/02/2020 CBC w/ auto diff platelets 304 x10'3 /uL 150-40 0 Not Available [facility] (Lab) [address] [place], [address], 08/02/2020 16:48:23 08/03/19 21 08/02/2020 CBC w/ auto diff mean platelet volume 10.1 fL 9.0-12 .4 Not Available [facility] (Lab) [address] [place], [address], 08/02/2020 16:48:23 08/03/19 21 08/02/2020 CBC w/ auto diff neutrophils 66.5 % 39.0-7 2.0 Not Available [facility] (Lab) [address] [place], [address], 08/02/2020 16:48:23 08/03/19 21 08/02/2020 CBC w/ auto diff lymphocytes 18.2 % 16.0-4 7.0 Not Available [facility] (Lab) [address] [place], [address], 08/02/2020 16:48:23 08/03/19 21 08/02/2020 CBC w/ auto diff monocytes 8.9 % 5.0-12 .0 Not Available [facility] (Lab) [address] [place], [address], 08/02/2020 16:48:23 08/03/19 21 08/02/2020 CBC w/ auto diff eosinophils 4.8 % 1.0-7. 0 Not Available [facility] (Lab) [address] [place], [address], 08/02/2020 16:48:23 08/03/19 21 08/02/2020 CBC w/ auto diff basophils 0.8 % 0.0-2. 0 Not Available [facility] (Lab) [address] [place], [address], 08/02/2020 16:48:23 08/03/19 21 08/02/2020 CBC w/ auto diff immature granulocytes 0.8 % 0.00-0 .50 high Not Available [facility] (Lab) [address] [place], [address], 08/02/2020 16:48:23 08/03/19 21 08/02/2020 CBC w/ auto diff neutrophils, absolute count 7.66 x10'3 /uL 1.5-8. 0 Not Available [facility] (Lab) [address] [place], [address], 08/02/2020 16:48:23 08/03/19 21 08/02/2020 CBC w/ auto diff lymphocytes, absolute count 2.09 x10'3 /uL 1.07-3 .43 Not Available [facility] (Lab) [address] [place], [address], 08/02/2020 16:48:23 08/03/19 21 08/02/2020 CBC w/ auto diff monocytes, absolute count 1.03 x10'3 /uL 0.29-0 .99 high Not Available [facility] (Lab) [address] [place], [address], 08/02/2020 16:48:23 08/03/19 21 08/02/2020 CBC w/ auto diff eosinophils, absolute count 0.55 x10'3 /uL 0.02-0 .53 high Not Available [facility] (Lab) [address] [place], [address], 08/02/2020 16:48:23 08/03/19 21 08/02/2020 CBC w/ auto diff basophils, absolute count 0.09 x10'3 /uL 0.01-0 .08 high Not Available [facility] (Lab) [address] [place], [address], 08/02/2020 16:48:23 08/03/19 21 08/02/2020 CBC w/ auto diff immature granulocytes ,absolute 0.09 x10'3 /uL 0.00-0 .05 high Not Available [facility] (Lab) [address] [place], [address], 08/02/2020 16:48:23 08/03/19 21 08/02/2020 CBC w/ auto diff nucleated red blood cells 0.0 % -0 Not Available [facility] (Lab) [address] [place], [address], 08/02/2020 16:48:23 08/03/19 21 08/02/2020 CBC w/ auto diff NRBC# 0.00 x10'3 /uL Not Available [facility] (Lab) [address] [place], [address], 08/02/2020 16:48:23 08/27/19 21 08/27/2020 CT, NG, TRICH VAG BY LATISHA chlamydia by LATISHA negati ve negati ve Not Available [facility] [address] [place], [address], 08/28/2020 06:12:24 08/27/1908/27/2020 CT, NG, TRICH VAG BY LATISHA gonococcus by LATISHA negati ve negati ve Not Available [facility] [address] [place], [address], 08/28/2020 06:12:24 08/27/19 21 08/27/2020 CT, NG, TRICH VAG BY LATISHA trich vag by LATISHA negati ve negati ve Not Available [facility] [address] [place], [address], 08/28/2020 06:12:24 08/28/19 21 08/27/2020 pregn elio test, urine HCG negati ve Not Available [facility] [address], [place], [address], 08/26/2020 16:54:07 08/14/19 21 08/12/2020 US, pelvi s, trans abdom inal + trans vagin al [facility] [address], [place] [address] [phone] [employer] t Name: CHARIS ODONNELL Access ion #: [id number] Sex: F : 1995 0 Locati on: RAD Attend ing Physic mary: ALEXIS DESAI Orderi ng Physic mary: ALEXIS DESAI Exam Date: 3:09 PM Exam Name: US PELVIS NON OB TRANSV AGINAL Admitt ing Diagno sis(es ): RADIOL OGY REPORT - FINAL EXAM: US PELVIS NON OB TRANSV AGINAL HISTOR Y: pelvic pain COMPAR KARLENE: None availa ble. TECHNI QUE: Transv aginal and transa bdomin al pelvic ultras ound was perfor med. FINDIN GS: The anteve rted uterus measur es 7.9 x 3.3 x 3.8 cm. The endome trium measur es 6.4 mm in thickn ess. The right ovary is not identi fied second eduard to overly ing bowel. The left ovary measur es 3.7 x 2.0 x 2.9 cm. The left ovary demons trates normal flow. There is a comple x cyst seen on the left ovary measur ing 1.7 x 1.9 x 1.2 cm. No free fluid is identi fied in the pelvis . Page 1 of 2 [facility] Jordan velez Name: CHARIS ODONNELL Access ion #: [id number] Sex: F : 1995 0 Exam Date: 3:09 PM Exam Name: US PELVIS NON OB TRANSV AGINAL Admitt ing Diagno sis(es ): IMPRES LEROY: Small comple x left ovaria n cyst. Nonvis ualiza tion of the right ovary. Normal appear ance of the uterus . Create d and electr onical ly signed by: Alex Kern ch, DO Signed Date: 7:23 AM (CT) Dictat ed by: Alex Kern ch, DO DD: 7:23 AM (CT) DT: 7:23 AM (CT) Page 2 of 2 [id number] [facility] (Imaging) [address] [place], [address], 04/29/2022 20:21:16 Result Notes None recorded. Problems Name Problem SNOMED Code Status Onset Date Resolution Date Notes Provider Name and Address Organization Details Recorded Time Depressive disorder 07565622 Active 021 Not Available [facility] 3 20:20:07 Anxiety 52883944 Active 021 Not Available [facility] 3 20:20:07 Problem Notes None recorded. Procedures Surgical History Date Name Laterality Status Provider Name and Address Organization Details Recorded Time Sinus Surgery completed Not Available [facility] th 04/29/2022 20:19:31 Back Surgery completed Not Available [facility] 04/29/2022 20:19:31 Remove tonsils and adenoids completed Not Available [facility] 04/29/2022 20:19:31 Imaging Results Imaging Date Name Status LastModified by Organization Details LastModified Time 08/12/2020 US, pelvis, transabdominal + transvaginal completed [id number] [facility] (Imaging) [address] [place], [address], 04/29/2022 20:21:16 Procedure Notes None recorded. Medical Equipment None Reported. Allergies Allergen ID Allergen Name Allergen Category Reaction Reaction Severity Criticality Documentation Date Start Date Code Code System Note Provider Name and Address Organization Details Recorded Time 87051 Substance with sulfonami de structure and antibacte rial mechanism of action (substanc e) medicatio n rash Not available Not available 04/29/2022 99742 8003 SNOMED Not Available [facility] 3 20:21:14 Medications Name Sig Start Date Stop Date Status Note LastModified by Organization Details LastModified Time fluoxetine 40 mg capsule TK 1 C PO QAM FOR MAJOR DEPRESSIV E DISORDER 08/02 completed Not Available Not Available Not Available clonazepam 0.5 mg tablet TK 1 T PO BID PRA 08/02 completed Not Available Not Available Not Available dextroamphe tamine-amph etamine ER 20 mg 24hr capsule,ext end release TK 1 C PO QAM FOR ADHD 08/02 completed Not Available Not Available Not Available fluoxetine 20 mg capsule TAKE 1 CAPSULE BY MOUTH EVERY DAY IN THE MORNING active Not Available Not Available No t Available hydroxyzine pamoate 25 mg capsule TAKE 1 CAPSULE BY MOUTH THREE TIMES DAILY NEEDED active Not Available Not Available No t Available bupropion HCl XL 150 mg 24 hr tablet, extended release TAKE 1 TABLET BY MOUTH EVERY DAY IN THE MORNING active Not Available Not Available No t Available cholecalcif concepcion (vitamin D3) 1,250 mcg (50,000 unit) capsule TK 1 C PO Q 7 DAYS 08/02 completed Not Available Not Available Not Available Vyvanse 40 mg capsule TK ONE C PO D WITH CARL 08/02 completed Not Available Not Available Not Available Aurovela Fe 1-20 (28) 1 mg-20 mcg (21)/75 mg (7) tablet TAKE 1 TABLET BY MOUTH EVERY DAY active Not Available Not Available No t Available COVID-19 test specimen collection TEST DIRECTED TODAY active Not Available Not Available No t Available Vitals Date Recorded Body mass index (BMI) Body height Oxygen saturation Oxygen saturation in Arterial blood by Pulse oximetry Heart rate Body temperature Body weight Systolic blood pressure Diastolic blood pressure Provider Name and Address Organization Details Last Updated DateTime 28.2 kg/m2 160.02 cm 100 % 100 % 92 /min 98.1 [degF] 54275.1 9 g 112 mm[Hg] 82 mm[Hg] Not Available [facility] 3 20:19:57 Date Recorded Body mass index (BMI) Body height Oxygen saturation Oxygen saturation in Arterial blood by Pulse oximetry Heart rate Body temperature Body weight Systolic blood pressure Diastolic blood pressure Provider Name and Address Organization Details Last Updated DateTime 1 28 kg/m2 160.02 cm 98 % 98 % 85 /min 98 [degF] 43679.5 9 g 116 mm[Hg] 80 mm[Hg] Not Available [facility] 3 20:19:57 Date Recorded Body mass index (BMI) Body height Body weight Systolic blood pressure Diastolic blood pressure Provider Name and Address Organization Details Last Updated DateTime 08/26/2020 27.8 kg/m2 160.02 cm 14450 g 120 mm[Hg] 80 mm[Hg] Not Available [facility] 3 20:19:57 Date Recorded Body mass index (BMI) Body height Body temperature Body weight Systolic blood pressure Diastolic blood pressure Provider Name and Address Organization Details Last Updated DateTime 1 28.3 kg/m2 160.02 cm 97.9 [degF] 23481.7 8 g 119 mm[Hg] 78 mm[Hg] Not Available [facility] 3 20:19:57 Social History Question Answer Notes LastModified by Organization Details LastModified Time Tobacco Smoking Status Never Smoker Not Available [facility] 04/29/2022 20:19:29 What Is Your Level Of Alcohol Consumption? None [id number] Information not available 04/29/2022 What Is Your Level Of Caffeine Consumption? Moderate [id number] Information not available 04/29/2022 How Much Tobacco Do You Chew? None [id number] [id number] Information not available 04/29/2022 In The 14 Days Before Symptom Onset, Have You Had Close Contact With A Laboratory-confi rmed COVID-19 While That Case Was Ill? No [id number] [id number] Information not available 04/29/2022 In The 14 Days Before Symptom Onset, Have You Had Close Contact With A Person Who Is Under Investigation For COVID-19 While That Person Was Ill? No [id number] [id number] Information not available 04/29/2022 What Type Of Diet Are You Following? REGULAR [id number].0301 [id number] Information not available 04/29/2022 Which Illicit Or Recreational Drugs Have You Used? No [id number].0301 [id number] Information not available 04/29/2022 Do You Or Have You Ever Used E-cigarettes Or Vape? Current User Of Electronic Cigarettes Vape Occasionally [id number] [id number] Information not available 04/29/2022 Are There Any Guns Present In Your Home? No MIGRATION.0301 [id number] Information not available 04/29/2022 What Was The Date Of Your Most Recent Tobacco Screening? 08/09/2020 MIGRATION.0301 [id number] Information not available 04/29/2022 Are You Passively Exposed To Smoke? Yes MIGRATION.0301 [id number] Information not available 04/29/2022 Do You Or Have You Ever Used Smokeless Tobacco? Never Used Smokeless Tobacco MIGRATION.0301 [id number] Information not available 04/29/2022 How Much Tobacco Do You Smoke? No [id number] [id number] Information not available 04/29/2022 Sex: Female Functional Status Question Answer Note LastModified by Organizat ion Details LastModified Time What is your exercise level? None [id number] Information not available 04/29/2022 Mental Status None recorded. Family History Relationship Description Onset Age of this Age Resolved Age Notes LastModified by Organization Details LastModified Time Mother Diabetes mellitus [id number] Not available 04/29/2022 20:19:32 Mother Anxiety disorder [id number] Not available 04/29/2022 20:19:32 Mother Depressive disorder [id number] Not available 04/29/2022 20:19:32 Sister Anxiety disorder [id number] Not available 04/29/2022 20:19:32 Sister Anxiety disorder [id number] Not available 04/29/2022 20:19:32 Sister Depressive disorder [id number] Not available 04/29/2022 20:19:33 Sister Depressive disorder [id number] Not available 04/29/2022 20:19:33 Medical History Condition Response ECZEMA Y ANXIETY DISORDER Y SLEEP APNEA Y CHICKENPOX Y SKIN PROBLEMS Y DEPRESSION (INCLUDING POST ) Y BACK / NECK PROBLEMS Y HAVE YOU BEEN HOSPITALIZED OR SEEN IN [facility] IN THE PAST YEAR ? Y HEARTBURN / REFLUX Y Gynecological History Statement/Question Response Abnormal Pap N Flow Heavy Date of LMP 08/13/2020 Dislike of Light during Menstrual Headac he N STIs/STDs N Duration of Flow (days) 4 Current Control Method BCPs Age at Menarche 15 Sexually Active? Y Menses Monthly Y Date of Last Pap Smear Obstetrics History GPAL:G 0 P 0 0 0 0 Past Encounters Encounter ID Performer Location Encounter Start Date Encounter Closed Date Diagnosis/Indication Diagnosis SNOMED-CT Code Diagnosis ICD10 Code Diagnosis Note [id number] S_G Internal Med [facility] 15 [address] [place] , [address] [address] 08/02/2020 00:00:00 08/02/2020 15:57:22 [id number] S_GMG Internal Med [facility] [address] [place] [address] 1 08/09/2020 00:00:00 08/09/2020 17:12:13 [id number] _ATHENA_M IGRATION_ DEFAULT_1 _1 , 08/26/2020 00:00:00 08/26/2020 18:24:25 [id number] _ATHENA_M IGRATION_ DEFAULT_1 _1 , 11/25/2020 00:00:00 11/25/2020 16:23:15 [id number] [facility] [address] [place] [address] [address] 08/13/2020 00:00:00 08/13/2020 11:06:48 [id number] [facility] [address] [place], [place] [address] [address] 10/02/2020 00:00:00 10/02/2020 18:04:03 [id number] [facility] [address] [place] [address] 1 10/30/2020 00:00:00 10/30/2020 14:54:00 [id number] [facility] [address] [place] [address] 1 11/28/2020 00:00:00 11/28/2020 15:54:58 [id number] [facility] [address] [place], [place] [address] [address] 1 12/18/2020 00:00:00 12/18/2020 16:46:49 Health Concerns Section Related Observation LastModified by Organization Detai ls LastModified Time None Recorded Concern Status LastModified by Organization Details LastModified Time None Recorded Advance Directives Directive None Recorded Payers None recorded. OBGyn Episode No OBEpisode recorded.
--- OUTSIDE RECORDS SUMMARY | 2024-06-16 09:22 | XMS_ITS | Encounter Summary ---
Author Organization [facility] Address [address] [place] [address] Care Team Providers Care Shuttle Fitting Supervisor Name Role Phone Unavailable Primary Care Provider Unavailabl e Encounter Details Date Type Department Care Team (Late st Contact Info) Description 01/09/2004 Outpatient Historical [facility] Pediatrics [address] [place] [address] Murtaza Mcnulty MD [address] [place] [address] Social History Tobacco Use Types Packs/Day Years Used Date Smoking Tobacco: Never Assessed Comments Unknown Sex and Gender Information Value Date Recorded Sex Assigned at Not on file Legal Sex Female 2:44 AM MANAGER OF TAX Gender Identity Not on file Sexual Orientation Not on file documented as of this encounter Plan of Treatment Not on file documented as of this encounter Visit Diagnoses Not on filedocumented in this encounter
--- OUTSIDE RECORDS SUMMARY | 2024-06-16 09:22 | XMS_ITS | Encounter Summary ---
Author Organization [facility] Address [address] [place] [address] Care Team Providers Care Sewer Connector Name Role Phone Unavailable Primary Care Provider Unavailabl e Encounter Details Date Type Department Care Team (Late st Contact Info) Description 02/06/2004 Outpatient Historical [facility] Pediatrics [address] [place] [address] Murtaza Mcnulty MD [address] [place] [address] Social History Tobacco Use Types Packs/Day Years Used Date Smoking Tobacco: Never Assessed Comments Unknown Sex and Gender Information Value Date Recorded Sex Assigned at Not on file Legal Sex Female 2:44 AM DIRECTOR HRIS Gender Identity Not on file Sexual Orientation Not on file documented as of this encounter Plan of Treatment Not on file documented as of this encounter Visit Diagnoses Not on filedocumented in this encounter
--- OUTSIDE RECORDS SUMMARY | 2024-06-16 09:22 | XMS_ITS | Encounter Summary ---
Author Organization [facility] Address [address] [place] [address] Care Team Providers Care Admissions Advisor Name Role Phone Unavailable Primary Care Provider Unavailabl e Encounter Details Date Type Department Care Team (Late st Contact Info) Description 05/06/2004 Outpatient Historical [facility] Pediatrics [address] [place] [address] Murtaza Mcnulty MD [address] [place] [address] Social History Tobacco Use Types Packs/Day Years Used Date Smoking Tobacco: Never Assessed Comments Unknown Sex and Gender Information Value Date Recorded Sex Assigned at Not on file Legal Sex Female 2:[address] Gender Identity Not on file Sexual Orientation Not on file documented as of this encounter Plan of Treatment Not on file documented as of this encounter Visit Diagnoses Not on filedocumented in this encounter
[2024-06-16 09:58] VITALS: BP 128/68; PULSE 86; RESP 16; TEMP 36.2; O2SAT 100
--- NOTE | 2024-06-16 10:33 | ED.FEMALEGU ---
HPI - Female Genitourinary General Chief complaint: Vaginal Bleeding Stated complaint: 3 weeks preg, cramping and spotting Time Seen by Provider: 06/16/24 10:20 Source: patient Mode of arrival: ambulatory Limitations: no limitations History of Present Illness HPI Narrative: This is a 28-year-old female who presents to the ED for chief complaint of abdominal cramping and vaginal spotting. Patient states that she had episode of vaginal spotting May 13, 2024. She thought at that time it was a regular menstrual., however states last normal menstrual period was mid April 2024. She does admit that she took a Plan B pill in early April and then did start noticing the spotting shortly after this. Today she states that she is starting to have intermittent spotting and small clot passage over the past couple of days. She is endorsing lower abdominal cramping that somewhat wraps around to the back bilaterally. Endorses couple episodes of lightheadedness but no syncope. States that she has been nauseous and had several episodes of vomiting over the past couple of weeks. Denies fevers, chills, urinary symptoms, cough, chest pain. Related Data Allergies Allergy/AdvReac Type Severity Reaction Status Date / Time Sulfa (Sulfonamide Allergy Unknown RASH Verified 06/16/24 10:02 Antibiotics) ITCHING Review of Systems Review of Systems: All systems as dictated in HPI [facility] Past Medical History Medical History ADHD (attention deficit hyperactivity disorder) Anxiety disorder Sleep apnea Spinal cord cysts surgically removed 2011 Surgical History Surgical History H/O sinus surgery History of back surgery History of tonsillectomy and adenoidectomy Family History Family History Mother Diabetes mellitus Anxiety Depression Sibling Anxiety Depression Social History Social History Tobacco type: e-cigarettes/vaping Alcohol intake: current Alcohol use details: social Substance use: unknown Living arrangements: with family Gender identity (if verbalized by the patient): Female Exam Narrative: GENERAL: Well-appearing, well-nourished, and in no acute distress. HEAD: Normocephalic, atraumatic. EYES: PERRLA and EOMI. ENT: Nares clear, no rhinorrhea or epistaxis. Mucous membranes moist. Oropharynx without tonsillar hypertrophy exudate or other lesions. NECK: Supple. No adenopathy or masses. CHEST: No respiratory distress. Clear to auscultation. No wheezes rales or rhonchi HEART: Regular rate and rhythm. No murmur heard. Normal peripheral pulses. ABDOMEN: Soft, nontender, nondistended, normal active bowel sounds. MSK: Normal range of motion. No edema. SKIN: Warm, dry, no rash. NEURO: Alert and oriented x4. No focal deficits. PSYCH: Normal mood and affect. Course Vital Signs Vital signs: Vital Signs Temperature 97.2 F L 06/16/24 09:58 Pulse Rate 86 06/16/24 09:58 Respiratory Rate 16 06/16/24 09:58 Blood Pressure 128/68 06/16/24 09:58 Pulse Oximetry 100 06/16/24 09:58 Oxygen Delivery Room Air 06/16/24 09:58 Temperature 97.2 F L 06/16/24 09:58 Pulse Rate 72 06/16/24 12:31 Respiratory Rate 16 06/16/24 12:31 Blood Pressure 121/74 06/16/24 12:31 Pulse Oximetry 100 06/16/24 12:31 Oxygen Delivery Room Air 06/16/24 09:58 MDM - Female Genitourinary MDM Narrative Medical decision making narrative: This is a 28-year-old female who presents to the ED for chief complaint of vaginal bleeding and cramping and feels that she could be based on home that this he test being positive. Vitals are normal. Exam remarkable for the above. She is anxious. Lab work is showing elevated white count of 16.7, however she has no acute infectious symptoms or signs. Feel this is more likely to be acute phase reaction with anxiety. Urinalysis shows 6-10 whites but no other markers for infection. Beta hCG [id number] Ultrasound obstetric school: IMPRESSION: Single intrauterine gestation with an approximate gestational age of 7 weeks and 4 days, with cardiac activity identified. Trace free fluid within the cervix, as detailed above She is Rh positive and will not require RhoGAM. Presentation consistent with viable , however concerning symptoms of vaginal bleeding or present. Pressure follow-up very closely with Ob regarding these symptoms. Patient will be discharged in stable condition. Supportive measures discussed and return precautions given. Patient is understanding and agreeable with plan for discharge with Ob follow-up. Lab Data 06/16/24 10:37 06/16/24 10:36 Labs: Lab Results 06/16/24 06/16/24 06/16/24 Range/Units 10:36 10:37 11:37 WBC 16.7 H (4.5-10.0) K/mm3 RBC 4.21 (4.2-5.4) M/mm3 Hgb 12.6 (12.0-15.0) g/dL Hct 37.0 (37.0-47.0) % MCV 87.9 (80-100) fl MCH 29.9 (26-34) pg MCHC 34.1 (32-36) g/dl RDW 13.5 (11.5-14.5) % Plt Count 279 (150-375) k/mm3 MPV 9.9 (7.4-10.4) fl Immature Gran % (Auto) 0.7 H (0-0.5) % Neut % (Auto) 72.5 (45.5-73.1) % Lymph % (Auto) 16.3 L (18.3-44.2) % [place] % (Auto) 8.3 (2.6-8.5) % Eos % (Auto) 1.7 (0-4.4) % Baso % (Auto) 0.5 (0.2-1.2) % Lymph # (Auto) 2.72 (0.9-3.2) K/mm3 [place] # (Auto) 1.4 H (0.1-0.6) K/mm3 Eos # (Auto) 0.3 (0-0.3) K/mm3 Baso # (Auto) 0.1 (0.0-0.1) K/mm3 Abs Immat Gran (auto) 0.12 H (0.00-0.031) K/mm3 Absolute Neuts (auto) 12.1 H (1.3-6.7) K/mm3 Absolute Nucleated RBC 0.000 (0.0-0.012) K/mm3 Nucleated RBC % 0.0 (0.0-0.2) % PT 14.1 (11.1-14.7) Seconds INR 1.1 APTT 27.5 (22.3-36.8) Seconds Sodium 139 (137-145) mmol/L Potassium 4.2 (3.4-5.0) mmol/L Chloride 105 (98-107) mmol/L Carbon Dioxide 22 (22-30) mmol/L Anion Gap 12 (4-12) mmol/L BUN 9 (7-17) mg/dL Creatinine 0.50 L (0.7-1.0) mg/dL Estim Creat Clear Calc 123 ml/min Estimated GFR > 60 (59 - ) Glucose 87 (65-110) mg/dL Calcium 9.7 (8.4-10.2) mg/dL Total Bilirubin 0.4 (0.2-1.3) mg/dL AST 27 (14-36) U/L ALT 17 (6-35) U/L Alkaline Phosphatase 42 (38-126) U/L Total Protein 7.0 (6.3-8.2) g/dL Albumin 4.5 (3.5-5.1) g/dL Beta HCG, Quant 405242.00 mIU/ML Urine Color Yellow (Yellow) Urine Appearance Turbid H (Clear) Urine pH 7.5 (5.0-9.0) Ur Specific Mobile 1.022 (1.001-1.035) Urine Protein Negative (Negative) mg/dL Urine Glucose (UA) Negative (Negative) mg/dL Urine Ketones Negative (Negative) mg/dL Ur Blood (Man) Negative (Negative) Urine Nitrate Negative (Negative) Urine Bilirubin Negative (Negative) Urine Urobilinogen 0.2 (<2.0) mg/dL Leukocyte Esterase Rfl Negative (Negative) ALEXY/UL Urine RBC 0-2 (0-2) /hpf Urine WBC 6-10 H (0-3) /hpf Ur Squamous Epith Cells Few (Few) /hpf Urine Bacteria None seen /hpf Urine Casts 0-2 Blood Type A Positive Antibody Screen Negative Screen Not Reportable Baby's Blood Type Not Reportable Baby's CYN Not Reportable Doses of RhIg Required 0 Discharge Plan Discharge Clinical Impression: Vaginal bleeding in Patient Disposition: Home Condition: Stable Instructions: Antibiotic Form Additional Instructions: Exam today does show a viable , however symptoms of bleeding and cramping are very concerning. Please make sure that you follow-up very closely with Ob. Use Tylenol 500 mg every 6 hours as needed for cramping. If you have any new or worsening symptoms please return to the ER for further evaluation. Patient Language: Somali Prescriptions: No Action chlordiazepoxide HCl 25 mg capsule 50 mg PO Q6H Qty: 16 0RF Rx Instructions: 50 mg qid for one day then 25 mg qid for two days then stop norethindrone-e.estradiol-iron [Aurovela Fe 1-20 (28)] 1 mg-20 mcg (21)/75 mg (7) tablet 1 tablet PO DAILY Qty: 84 0RF Follow-up/Referrals: Myriam Pretty MD [Physician] - PHYSICIAN NOT ON STAFF,NONSTAFF [Non-Staff] - Stand Alone Forms: Work/School Release IP Time of Disposition: 12:24
[2024-06-16 10:45] LABS: Basophils Absolute Auto 0.1 K/mm3 (0.0-0.1); Basophils Percent Auto 0.5 % (0.2-1.2); Eosinophils Absolute Auto 0.3 K/mm3 (0-0.3); Eosinophils Percent Auto 1.7 % (0-4.4); Hemoglobin 12.6 g/dL (12.0-15.0); Immature Granulocyte Absolute 0.12 K/mm3 (0.00-0.031); Immature Granulocyte Percent A 0.7 % (0-0.5); Lymphocytes Absolute Auto 2.72 K/mm3 (0.9-3.2); Lymphocytes Percent Auto 16.3 % (18.3-44.2); Mean Corpuscular HGB Conc 34.1 g/dl (32-36); Mean Corpuscular Hemoglobin 29.9 pg (26-34); Mean Corpuscular Volume 87.9 fl (80-100); Mean Platelet Volume 9.9 fl (7.4-10.4); Monocytes Absolute Auto 1.4 K/mm3 (0.1-0.6); Monocytes Percent Auto 8.3 % (2.6-8.5); Neutrophils Absolute Auto 12.1 K/mm3 (1.3-6.7); Neutrophils Percent Auto 72.5 % (45.5-73.1); Platelet Count Result 279 k/mm3 (150-375); Red Blood Count 4.21 M/mm3 (4.2-5.4); Red Cell Distribution Width 13.5 % (11.5-14.5); White Blood Count 16.7 K/mm3 (4.5-10.0)
[2024-06-16 10:55] LABS: Alanine Aminotransferase 17 U/L (6-35); Albumin Level 4.5 g/dL (3.5-5.1); Alkaline Phosphatase 42 U/L (38-126); Anion Gap 12 mmol/L (4-12); Aspartate Amino Transferase 27 U/L (14-36); Bilirubin,Total 0.4 mg/dL (0.2-1.3); Blood Urea Nitrogen 9 mg/dL (7-17); Calcium 9.7 mg/dL (8.4-10.2); Carbon Dioxide 22 mmol/L (22-30); Chloride 105 mmol/L (98-107); Estimated CRCL calculation 123 ml/min; Estimated Glomerular Filt Rate > 60; Glucose 87 mg/dL (65-110); Potassium 4.2 mmol/L (3.4-5.0); Sodium 139 mmol/L (137-145)
[2024-06-16 10:59] LABS: INR 1.1; Partial Thromboplastin Time 27.5 Seconds (22.3-36.8); Prothrombin Time 14.1 Seconds (11.1-14.7)
--- OUTSIDE RECORDS SUMMARY | 2024-06-16 11:43 | XMS_ITS | Encounter Summary ---
Author Organization [facility] Address [address] [place] [address] Care Team Providers Care Teacher Visually Impaired Name Role Phone Unavailable Primary Care Provider Unavailabl e Encounter Details Date Type Department Care Team (Late st Contact Info) Description 08/15/1999 Outpatient Historical [facility] Pediatrics [place] [address] [place] [address] Moises Guerrero Social History Tobacco Use Types Packs/Day Years Used Date Smoking Tobacco: Never Assessed Comments Unknown Sex and Gender Information Value Date Recorded Sex Assigned at Not on file Legal Sex Female 2:44 AM MEDICAL RECORDS FIELD TECHNICIAN Gender Identity Not on file Sexual Orientation Not on file documented as of this encounter Plan of Treatment Not on file documented as of this encounter Visit Diagnoses Not on filedocumented in this encounter
--- OUTSIDE RECORDS SUMMARY | 2024-06-16 11:43 | XMS_ITS | Encounter Summary ---
Author Organization [facility] Address [address] [place] [address] Care Team Providers Care [employer] Principal Name Role Phone Unavailable Primary Care Provider Unavailabl e Encounter Details Date Type Department Care Team (Late st Contact Info) Description 09/21/2000 Outpatient Historical [facility] Pediatrics [place] [address] [facility] [address] [place] [address] Edgar Morton MD [address] [facility] [address] [place] [address] Social History Tobacco Use Types Packs/Day Years Used Date Smoking Tobacco: Never Assessed Comments Unknown Sex and Gender Information Value Date Recorded Sex Assigned at Not on file Legal Sex Female 2:44 AM LOADER MAGAZINE GRINDER Gender Identity Not on file Sexual Orientation Not on file documented as of this encounter Plan of Treatment Not on file documented as of this encounter Visit Diagnoses Not on filedocumented in this encounter
--- OUTSIDE RECORDS SUMMARY | 2024-06-16 11:43 | XMS_ITS | Encounter Summary ---
Author Organization [facility] Address [address] [place] [address] Care Team Providers Care Genetics Physician Name Role Phone Unavailable Primary Care Provider Unavailabl e Encounter Details Date Type Department Care Team (Late st Contact Info) Description 06/12/1999 Outpatient Historical [facility] Pediatrics [place] [address] [place] [address] Moises Guerrero Social History Tobacco Use Types Packs/Day Years Used Date Smoking Tobacco: Never Assessed Comments Unknown Sex and Gender Information Value Date Recorded Sex Assigned at Not on file Legal Sex Female 2:44 AM COMMERCIAL PORTFOLIO MANAGER Gender Identity Not on file Sexual Orientation Not on file documented as of this encounter Plan of Treatment Not on file documented as of this encounter Visit Diagnoses Not on filedocumented in this encounter
--- OUTSIDE RECORDS SUMMARY | 2024-06-16 11:43 | XMS_ITS | Encounter Summary ---
Author Organization [facility] Address [address] [place] [address] Care Team Providers Care Automobile Upholsterer Name Role Phone Unavailable Primary Care Provider Unavailabl e Encounter Details Date Type Department Care Team (Late st Contact Info) Description 08/11/1999 Outpatient Historical [facility] Pediatrics [place] [address] [place] [address] Moises Guerrero Social History Tobacco Use Types Packs/Day Years Used Date Smoking Tobacco: Never Assessed Comments Unknown Sex and Gender Information Value Date Recorded Sex Assigned at Not on file Legal Sex Female 2:44 AM MIDDLE SCHOOL DIRECTOR Gender Identity Not on file Sexual Orientation Not on file documented as of this encounter Plan of Treatment Not on file documented as of this encounter Visit Diagnoses Not on filedocumented in this encounter
--- OUTSIDE RECORDS SUMMARY | 2024-06-16 11:43 | XMS_ITS | Clinical Summary ---
Author Organization [facility] Address [address] [place] [address] Phone Care Team Providers Care Toy Consultant Name Role Phone Varun Chavez MD Primary Care Provider [phone] Allergies Active Allergy Reactions Criticality Noted Date [...] Eileen (19) Alive Mother Luba Alive Sister Willie (28) Alive Social History Tobacco Use Types [...] making a change Department associated with goal: [facility] Steps to achieve [...] track(2021 2:25 PM CDT) Yes Sandra Rich, [facility] Insurance MEDICAID [employer] Care Teams Toy Consultant Relationship Specialty Start Date End Date Vaurn Chavez MD [address] [place] [address] PCP - General Internal Medicine 11/13/21
--- OUTSIDE RECORDS SUMMARY | 2024-06-16 11:43 | XMS_ITS | Encounter Summary ---
Author Organization [facility] Address [address] [place] [address] Care Team Providers Care Warping Machine Operator Name Role Phone Unavailable Primary Care Provider Unavailabl e Encounter Details Date Type Department Care Team (Late st Contact Info) Description 05/29/1999 Outpatient Historical [facility] Pediatrics [place] [address] [place] [address] Moises Guerrero Social History Tobacco Use Types Packs/Day Years Used Date Smoking Tobacco: Never Assessed Comments Unknown Sex and Gender Information Value Date Recorded Sex Assigned at Not on file Legal Sex Female 2:44 AM BANQUET PREP COOK Gender Identity Not on file Sexual Orientation Not on file documented as of this encounter Plan of Treatment Not on file documented as of this encounter Visit Diagnoses Not on filedocumented in this encounter
--- OUTSIDE RECORDS SUMMARY | 2024-06-16 11:43 | XMS_ITS | Encounter Summary ---
Author Organization [facility] Address [address] [place] [address] Care Team Providers Care Pharmacy Buyer Name Role Phone Unavailable Primary Care Provider Unavailabl e Encounter Details Date Type Department Care Team (Late st Contact Info) Description 06/01/2000 Outpatient Historical [facility] Pediatrics [place] [address] [facility] [address] [place] [address] Kashmir Gunn MD [address] [facility] [address] [place] [address] Social History Tobacco Use Types Packs/Day Years Used Date Smoking Tobacco: Never Assessed Comments Unknown Sex and Gender Information Value Date Recorded Sex Assigned at Not on file Legal Sex Female 2:44 AM COMMAND AND CONTROL Gender Identity Not on file Sexual Orientation Not on file documented as of this encounter Plan of Treatment Not on file documented as of this encounter Visit Diagnoses Not on filedocumented in this encounter
--- OUTSIDE RECORDS SUMMARY | 2024-06-16 11:43 | XMS_ITS | Encounter Summary ---
Author Organization [facility] Address [address] [place] [address] Care Team Providers Care General Contractor Name Role Phone Unavailable Primary Care Provider Unavailabl e Encounter Details Date Type Department Care Team (Late st Contact Info) Description 08/23/1998 Outpatient Historical [facility] Pediatrics [place] [address] [place] [address] Moises Guerrero Social History Tobacco Use Types Packs/Day Years Used Date Smoking Tobacco: Never Assessed Comments Unknown Sex and Gender Information Value Date Recorded Sex Assigned at Not on file Legal Sex Female 2:44 AM CALL CENTER TRAINER Gender Identity Not on file Sexual Orientation Not on file documented as of this encounter Plan of Treatment Not on file documented as of this encounter Visit Diagnoses Not on filedocumented in this encounter
--- OUTSIDE RECORDS SUMMARY | 2024-06-16 11:43 | XMS_ITS | Encounter Summary ---
Author Organization [facility] Address [address] [place] [address] Care Team Providers Care Bag Machine Operator Name Role Phone Unavailable Primary Care Provider Unavailabl e Encounter Details Date Type Department Care Team (Late st Contact Info) Description 10/25/1998 Outpatient Historical [facility] Pediatrics [place] [address] [place] [address] Moises Guerrero Social History Tobacco Use Types Packs/Day Years Used Date Smoking Tobacco: Never Assessed Comments Unknown Sex and Gender Information Value Date Recorded Sex Assigned at Not on file Legal Sex Female 2:44 AM CMO & PRESIDENT Gender Identity Not on file Sexual Orientation Not on file documented as of this encounter Plan of Treatment Not on file documented as of this encounter Visit Diagnoses Not on filedocumented in this encounter
--- OUTSIDE RECORDS SUMMARY | 2024-06-16 11:43 | XMS_ITS | Clinical Summary ---
Author Organization [facility] Address [address] [place] [address] Phone Care Team Providers Care Consumer Education Specialist Name Role Phone Unavailable Primary Care Provider [...] file Legal Sex Female 2:44 AM SPECIAL FORCES COMMUNICATIONS SERGEANT Gender Identity Not on file Sexual Orientation Not on file Occupation Industry Job Start Date Job End Date Not on file Not on file Not on file Not on file Last Filed Vital Signs Vital Sign Reading Time Taken Comments Blood Pressure 110/80 01/28/2016 11:54 AM [employer] FORCES COMMUNICATIONS SERGEANT Pulse 101 01/28/2016 11:54 AM SPECIAL FORCES COMMUNICATIONS SERGEANT Temperature 37.1 C (98.7 F) 01/28/2016 11:54 AM [employer] FORCES COMMUNICATIONS SERGEANT Respiratory Rate 18 01/28/2016 11:54 AM [employer] FORCES COMMUNICATIONS SERGEANT Oxygen Saturation 97% 01/28/2016 11:54 AM [employer] FOR[employer] COMMUNICATIONS SERGEANT Inhaled Oxygen Concentration - - Weight 61.7 kg (136 lb) 01/28/2016 11:54 AM SPECIAL FORCES COMMUNICATIONS SERGEANT Height 160 cm (5' 3 ) 01/28/2016 11:54 AM SPECIAL FORCES COMMUNICATIONS SERGEANT Body Mass Index 24.09 01/28/2016 11:54 AM SPECIAL FORCES COMMUNICATIONS SERGEANT Plan of Treatment Health Maintenance Due Date Last Done Comments HPV VACCINES (1 - 3-dose series) 2012 DTAP/TDAP/TD VACCINES (1 - Tdap) 2016 HEPATITIS B VACCINES (1 of 3 - 19+ 3-dose series) 10/31 CERVICAL CANCER SCREENING 2018 HPV/Cotest (21-29) 2018 PAP SMEAR 2018 INFLUENZA VACCINE (#1) 2023
--- OUTSIDE RECORDS SUMMARY | 2024-06-16 11:43 | XMS_ITS | Encounter Summary ---
Author Organization [facility] Address [address] [place] [address] Care Team Providers Care Shop Hand Name Role Phone Unavailable Primary Care Provider Unavailabl e Encounter Details Date Type Department Care Team (Late st Contact Info) Description 09/06/1998 Outpatient Historical [facility] Pediatrics [place] [address] [place] [address] Moises Guerrero Social History Tobacco Use Types Packs/Day Years Used Date Smoking Tobacco: Never Assessed Comments Unknown Sex and Gender Information Value Date Recorded Sex Assigned at Not on file Legal Sex Female 2:44 AM RESEARCH AND EVALUATION MANAGER Gender Identity Not on file Sexual Orientation Not on file documented as of this encounter Plan of Treatment Not on file documented as of this encounter Visit Diagnoses Not on filedocumented in this encounter
--- OUTSIDE RECORDS SUMMARY | 2024-06-16 11:43 | XMS_ITS | Encounter Summary ---
Author Organization [facility] Address [address] [place] [address] Care Team Providers Care Sheet Combining Operator Name Role Phone Unavailable Primary Care Provider Unavailabl e Encounter Details Date Type Department Care Team (Late st Contact Info) Description 01/05/2000 Outpatient Historical [facility] Pediatrics [place] [address] [place] [address] Kashmir Gunn MD [address] [facility] [address] [place] [address] Social History Tobacco Use Types Packs/Day Years Used Date Smoking Tobacco: Never Assessed Comments Unknown Sex and Gender Information Value Date Recorded Sex Assigned at Not on file Legal Sex Female 2:44 AM LIBRARY SCIENCE INSTRUCTOR Gender Identity Not on file Sexual Orientation Not on file documented as of this encounter Plan of Treatment Not on file documented as of this encounter Visit Diagnoses Not on filedocumented in this encounter
--- OUTSIDE RECORDS SUMMARY | 2024-06-16 11:43 | XMS_ITS | Encounter Summary ---
Author Organization [facility] Address 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
--- OUTSIDE RECORDS SUMMARY | 2024-06-16 11:43 | XMS_ITS | Encounter Summary ---
Author Organization [facility] Address [address] [place] [address] Care Team Providers Care Percussion Tuner Name Role Phone Unavailable Primary Care Provider Unavailabl e Encounter Details Date Type Department Care Team (Late st Contact Info) Description 02/05/2000 Outpatient Historical [facility] Pediatrics [place] [address] [facility] [address] [place] [address] Kashmir Gunn MD [address] [facility] [address] [place] [address] Social History Tobacco Use Types Packs/Day Years Used Date Smoking Tobacco: Never Assessed Comments Unknown Sex and Gender Information Value Date Recorded Sex Assigned at Not on file Legal Sex Female 2:44 AM GATE TENDER Gender Identity Not on file Sexual Orientation Not on file documented as of this encounter Plan of Treatment Not on file documented as of this encounter Visit Diagnoses Not on filedocumented in this encounter
--- OUTSIDE RECORDS SUMMARY | 2024-06-16 11:43 | XMS_ITS | Encounter Summary ---
Author Organization [facility] Address [address] [place] [address] Care Team Providers Care Home Restoration Service Cleaner Name Role Phone Unavailable Primary Care Provider Unavailabl e Encounter Details Date Type Department Care Team (Late st Contact Info) Description 04/03/2000 Outpatient Historical [facility] Pediatrics [place] [address] [facility] [address] [place] [address] Luis Conklin MD [address] [place] [address] Social History Tobacco Use Types Packs/Day Years Used Date Smoking Tobacco: Never Assessed Comments Unknown Sex and Gender Information Value Date Recorded Sex Assigned at Not on file Legal Sex Female 2:44 AM ELEVATOR CONSTRUCTOR ELECTRIC Gender Identity Not on file Sexual Orientation Not on file documented as of this encounter Plan of Treatment Not on file documented as of this encounter Visit Diagnoses Not on filedocumented in this encounter
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
--- OUTSIDE RECORDS SUMMARY | 2024-06-16 11:43 | XMS_ITS | Encounter Summary ---
Author Organization [facility] Address [address] [place] [address] Care Team Providers Care Data Communications Technician Name Role Phone Unavailable Primary Care Provider Unavailabl e Encounter Details Date Type Department Care Team (Late st Contact Info) Description 07/25/1999 Outpatient Historical [facility] Pediatrics [place] [address] [place] [address] Moises Guerrero Social History Tobacco Use Types Packs/Day Years Used Date Smoking Tobacco: Never Assessed Comments Unknown Sex and Gender Information Value Date Recorded Sex Assigned at Not on file Legal Sex Female 2:44 AM RECORDS ANALYST Gender Identity Not on file Sexual Orientation Not on file documented as of this encounter Plan of Treatment Not on file documented as of this encounter Visit Diagnoses Not on filedocumented in this encounter
--- OUTSIDE RECORDS SUMMARY | 2024-06-16 11:43 | XMS_ITS | Encounter Summary ---
Author Organization [facility] Address [address] [place] [address] Care Team Providers Care Marketing Project Manager Name Role Phone Unavailable Primary Care Provider Unavailabl e Encounter Details Date Type Department Care Team (Late st Contact Info) Description 03/26/2000 Outpatient Historical [facility] Pediatrics [place] [address] [place] [address] Kashmir Gunn MD [address] [facility] [address] [place] [address] Social History Tobacco Use Types Packs/Day Years Used Date Smoking Tobacco: Never Assessed Comments Unknown Sex and Gender Information Value Date Recorded Sex Assigned at Not on file Legal Sex Female 2:44 AM METER TESTER Gender Identity Not on file Sexual Orientation Not on file documented as of this encounter Plan of Treatment Not on file documented as of this encounter Visit Diagnoses Not on filedocumented in this encounter
--- OUTSIDE RECORDS SUMMARY | 2024-06-16 11:44 | XMS_ITS | Encounter Summary ---
Author Organization [facility] Address [address] [place] [address] Care Team Providers Care Housecleaner Floor Name Role Phone Unavailable Primary Care Provider Unavailabl e Encounter Details Date Type Department Care Team (Late st Contact Info) Description 12/03/1998 Outpatient Historical [facility] Pediatrics [place] [address] [place] [address] Moises Guerrero Social History Tobacco Use Types Packs/Day Years Used Date Smoking Tobacco: Never Assessed Comments Unknown Sex and Gender Information Value Date Recorded Sex Assigned at Not on file Legal Sex Female 2:44 AM HARDWARE DESIGN ENGINEER Gender Identity Not on file Sexual Orientation Not on file documented as of this encounter Plan of Treatment Not on file documented as of this encounter Visit Diagnoses Not on filedocumented in this encounter
--- OUTSIDE RECORDS SUMMARY | 2024-06-16 11:44 | XMS_ITS | Encounter Summary ---
Author Organization [facility] Address [address] [place] [address] Care Team Providers Care Loss Prevention Leader Name Role Phone Unavailable Primary Care Provider Unavailabl e Encounter Details Date Type Department Care Team (Late st Contact Info) Description 02/06/[address] [facility] Pediatrics [address] [place] [address] Murtaza Mcnulty MD [address] [place] [address] Social History Tobacco Use Types Packs/Day Years Used Date Smoking Tobacco: Never Assessed Comments Unknown Sex and Gender Information Value Date Recorded Sex Assigned at Not on file Legal Sex Female 2:44 AM BULB SORTER Gender Identity Not on file Sexual Orientation Not on file documented as of this encounter Plan of Treatment Not on file documented as of this encounter Visit Diagnoses Not on filedocumented in this encounter
--- OUTSIDE RECORDS SUMMARY | 2024-06-16 11:44 | XMS_ITS | Encounter Summary ---
Author Organization [facility] Address [address] [place] [address] Care Team Providers Care Second Shift Supervisor Name Role Phone Unavailable Primary Care Provider Unavailabl e Encounter Details Date Type Department Care Team (Late st Contact Info) Description 11/15/2003 Outpatient Historical [facility] Pediatrics [place] [address] [facility] [address] [place] [address] Kashmir Gunn MD [address] [facility] [address] [place] [address] Social History Tobacco Use Types Packs/Day Years Used Date Smoking Tobacco: Never Assessed Comments Unknown Sex and Gender Information Value Date Recorded Sex Assigned at Not on file Legal Sex Female 2:44 AM INSTRUCTOR SUBSTITUTE COSMETOLOGY Gender Identity Not on file Sexual Orientation Not on file documented as of this encounter Plan of Treatment Not on file documented as of this encounter Procedures Procedure Name Priority Date/Time Associated Diagnosis Comments CHG POLIOVIRUS IPV [facility] 4 12:00 AM CDT CHG MMR VACCINE SQ [facility] 4 12:00 AM CDT CHG DTAP VACCINE <7 YO IM [facility] 11/15/2003 12:00 AM CDT documented in this encounter Visit Diagnoses Not on filedocumented in this encounter
--- OUTSIDE RECORDS SUMMARY | 2024-06-16 11:44 | XMS_ITS | Encounter Summary ---
Author Organization Address [address] [place] [address] Care Team Providers Care Roll Changer Name Role Phone Unavailable Primary Care Provider Unavailabl e Encounter Details Date Type Department Care Team (Late st Contact Info) Description 05/31/1998 Outpatient Historical [facility] Pediatrics [address] [place] [address] Moises Guerrero Social History Tobacco Use Types Packs/Day Years Used Date Smoking Tobacco: Never Assessed Comments Unknown Sex and Gender Information Value Date Recorded Sex Assigned at Not on file Legal Sex Female 2:44 AM FLAT SURFACER JEWEL Gender Identity Not on file Sexual Orientation Not on file documented as of this encounter Plan of Treatment Not on file documented as of this encounter Procedures Procedure Name Priority Date/Time Associated Diagnosis Comments CHG POLIOVIRUS VACCINE LIVE ORAL [facility] 05/31/1998 12:00 AM FLAT SURFACER JEWEL documented in this encounter Visit Diagnoses Not on filedocumented in this encounter
--- OUTSIDE RECORDS SUMMARY | 2024-06-16 11:44 | XMS_ITS | Encounter Summary ---
Author Organization [facility] Address [address] [place] [address] Care Team Providers Care Pot Runner Name Role Phone Unavailable Primary Care Provider Unavailabl e Encounter Details Date Type Department Care Team (Late st Contact Info) Description 01/06/1999 Outpatient Historical [facility] Pediatrics [place] [address] [place] [address] Moises Guerrero Social History Tobacco Use Types Packs/Day Years Used Date Smoking Tobacco: Never Assessed Comments Unknown Sex and Gender Information Value Date Recorded Sex Assigned at Not on file Legal Sex Female 2:44 AM GALVANOMETER ASSEMBLER Gender Identity Not on file Sexual Orientation Not on file documented as of this encounter Plan of Treatment Not on file documented as of this encounter Visit Diagnoses Not on filedocumented in this encounter
--- OUTSIDE RECORDS SUMMARY | 2024-06-16 11:44 | XMS_ITS | Encounter Summary ---
Author Organization [facility] Address [address] [place] [address] Care Team Providers Care Geriatric Nurse Name Role Phone Unavailable Primary Care Provider Unavailabl e Encounter Details Date Type Department Care Team (Late st Contact Info) Description 01/07/1998 Outpatient Historical [facility] Pediatrics [place] [address] [place] [address] Moises Guerrero Social History Tobacco Use Types Packs/Day Years Used Date Smoking Tobacco: Never Assessed Comments Unknown Sex and Gender Information Value Date Recorded Sex Assigned at Not on file Legal Sex Female 2:44 AM SLEEVE SETTER SAFETY STITCH Gender Identity Not on file Sexual Orientation Not on file documented as of this encounter Plan of Treatment Not on file documented as of this encounter Visit Diagnoses Not on filedocumented in this encounter
--- OUTSIDE RECORDS SUMMARY | 2024-06-16 11:44 | XMS_ITS | Encounter Summary ---
Author Organization [facility] Address [address] [place] [address] Care Team Providers Care Configuration Manager Name Role Phone Unavailable Primary Care Provider Unavailabl e Encounter Details Date Type Department Care Team (Late st Contact Info) Description 01/09/2004 Outpatient Historical [facility] Pediatrics [address] [place] [address] Murtaza Mcnulty MD [address] [place] [address] Social History Tobacco Use Types Packs/Day Years Used Date Smoking Tobacco: Never Assessed Comments Unknown Sex and Gender Information Value Date Recorded Sex Assigned at Not on file Legal Sex Female 2:44 AM PUBLISHING DIRECTOR Gender Identity Not on file Sexual Orientation Not on file documented as of this encounter Plan of Treatment Not on file documented as of this encounter Visit Diagnoses Not on filedocumented in this encounter
--- OUTSIDE RECORDS SUMMARY | 2024-06-16 11:44 | XMS_ITS | Encounter Summary ---
Author Organization [facility] Address [address] [place] [address] Care Team Providers Care Machine Engineer Name Role Phone Unavailable Primary Care Provider Unavailabl e Encounter Details Date Type Department Care Team (Late st Contact Info) Description 02/12/2004 Outpatient Historical [facility] Pediatrics [address] [place] [address] Murtaza Mcnulty MD [address] [place] [address] Social History Tobacco Use Types Packs/Day Years Used Date Smoking Tobacco: Never Assessed Comments Unknown Sex and Gender Information Value Date Recorded Sex Assigned at Not on file Legal Sex Female 2:44 AM SYSTEMS ENGINEERING MANAGER Gender Identity Not on file Sexual Orientation Not on file documented as of this encounter Plan of Treatment Not on file documented as of this encounter Visit Diagnoses Not on filedocumented in this encounter
--- OUTSIDE RECORDS SUMMARY | 2024-06-16 11:44 | XMS_ITS | Encounter Summary ---
Author Organization [facility] Address [address] [place] [address] Care Team Providers Care Boiler Operator Helper Name Role Phone Unavailable Primary Care Provider Unavailabl e Encounter Details Date Type Department Care Team (Late st Contact Info) Description 07/09/2004 Outpatient Historical [facility] Pediatrics [address] [place] [address] Murtaza Mcnulty MD [address] [place] [address] Social History Tobacco Use Types Packs/Day Years Used Date Smoking Tobacco: Never Assessed Comments Unknown Sex and Gender Information Value Date Recorded Sex Assigned at Not on file Legal Sex Female 2:44 AM JEWELRY BENCH MOLDER Gender Identity Not on file Sexual Orientation Not on file documented as of this encounter Plan of Treatment Not on file documented as of this encounter Visit Diagnoses Not on filedocumented in this encounter
--- OUTSIDE RECORDS SUMMARY | 2024-06-16 11:44 | XMS_ITS | Encounter Summary ---
Author Organization [facility] Address [address] [place] [address] Care Team Providers Care Bookstore Manager Name Role Phone Unavailable Primary Care Provider Unavailabl e Encounter Details Date Type Department Care Team (Late st Contact Info) Description 11/28/1998 Outpatient Historical [facility] Pediatrics [place] [address] [place] [address] Moises Guerrero Social History Tobacco Use Types Packs/Day Years Used Date Smoking Tobacco: Never Assessed Comments Unknown Sex and Gender Information Value Date Recorded Sex Assigned at Not on file Legal Sex Female 2:44 AM CLERICAL ADVISER Gender Identity Not on file Sexual Orientation Not on file documented as of this encounter Plan of Treatment Not on file documented as of this encounter Visit Diagnoses Not on filedocumented in this encounter
--- OUTSIDE RECORDS SUMMARY | 2024-06-16 11:44 | XMS_ITS | Encounter Summary ---
Author Organization [facility] Address [address] [place] [address] Care Team Providers Care Chick Sexer Name Role Phone Unavailable Primary Care Provider Unavailabl e Encounter Details Date Type Department Care Team (Late st Contact Info) Description 12/17/1998 Outpatient Historical [facility] Pediatrics [place] [address] [place] [address] Moises Guerrero Social History Tobacco Use Types Packs/Day Years Used Date Smoking Tobacco: Never Assessed Comments Unknown Sex and Gender Information Value Date Recorded Sex Assigned at Not on file Legal Sex Female 2:44 AM BUNDLER Gender Identity Not on file Sexual Orientation Not on file documented as of this encounter Plan of Treatment Not on file documented as of this encounter Visit Diagnoses Not on filedocumented in this encounter
--- OUTSIDE RECORDS SUMMARY | 2024-06-16 11:44 | XMS_ITS | Encounter Summary ---
Author Organization [facility] Address [address] [place] [address] Care Team Providers Care Smocking Machine Operator Name Role Phone Unavailable Primary Care Provider Unavailabl e Encounter Details Date Type Department Care Team (Late st Contact Info) Description 01/14/[address] [facility] Pediatrics [place] [address] [place] [address] Moises Guerrero Social History Tobacco Use Types Packs/Day Years Used Date Smoking Tobacco: Never Assessed Comments Unknown Sex and Gender Information Value Date Recorded Sex Assigned at Not on file Legal Sex Female 2:44 AM REVENUE DIRECTOR Gender Identity Not on file Sexual Orientation Not on file documented as of this encounter Plan of Treatment Not on file documented as of this encounter Visit Diagnoses Not on filedocumented in this encounter
--- OUTSIDE RECORDS SUMMARY | 2024-06-16 11:44 | XMS_ITS | Encounter Summary ---
Author Organization [facility] Address [address] [place] [address] Care Team Providers Care Television Maintenance Worker Name Role Phone Unavailable Primary Care Provider Unavailabl e Encounter Details Date Type Department Care Team (Late st Contact Info) Description 11/28/1998 Outpatient Historical [facility] Pediatrics [place] [address] [place] [address] Moises Guerrero Social History Tobacco Use Types Packs/Day Years Used Date Smoking Tobacco: Never Assessed Comments Unknown Sex and Gender Information Value Date Recorded Sex Assigned at Not on file Legal Sex Female 2:44 AM WET PROCESS MILLER HEAD ASSISTANT Gender Identity Not on file Sexual Orientation Not on file documented as of this encounter Plan of Treatment Not on file documented as of this encounter Visit Diagnoses Not on filedocumented in this encounter
--- OUTSIDE RECORDS SUMMARY | 2024-06-16 11:44 | XMS_ITS | Encounter Summary ---
Author Organization [facility] Address [address] [place] [address] Care Team Providers Care Flarer Name Role Phone Unavailable Primary Care Provider Unavailabl e Encounter Details Date Type Department Care Team (Late st Contact Info) Description 07/10/1998 Outpatient Historical [facility] Pediatrics [place] [address] [place] [address] Moises Guerrero Social History Tobacco Use Types Packs/Day Years Used Date Smoking Tobacco: Never Assessed Comments Unknown Sex and Gender Information Value Date Recorded Sex Assigned at Not on file Legal Sex Female 2:44 AM MANAGER MUTUAL FUND Gender Identity Not on file Sexual Orientation Not on file documented as of this encounter Plan of Treatment Not on file documented as of this encounter Visit Diagnoses Not on filedocumented in this encounter
--- OUTSIDE RECORDS SUMMARY | 2024-06-16 11:44 | XMS_ITS | Encounter Summary ---
Author Organization [facility] Address [address] [place] [address] Care Team Providers Care Orthopedics Teacher Name Role Phone Unavailable Primary Care Provider Unavailabl e Encounter Details Date Type Department Care Team (Late st Contact Info) Description 05/28/1998 Outpatient Historical [facility] Pediatrics [place] [address] [place] [address] Moises Guerrero Social History Tobacco Use Types Packs/Day Years Used Date Smoking Tobacco: Never Assessed Comments Unknown Sex and Gender Information Value Date Recorded Sex Assigned at Not on file Legal Sex Female 2:44 AM OINTMENT MILL TENDER Gender Identity Not on file Sexual Orientation Not on file documented as of this encounter Plan of Treatment Not on file documented as of this encounter Visit Diagnoses Not on filedocumented in this encounter
--- OUTSIDE RECORDS SUMMARY | 2024-06-16 11:44 | XMS_ITS | Encounter Summary ---
Author Organization [facility] Address [address] [place] [address] Care Team Providers Care Customer Service Manager Name Role Phone Unavailable Primary Care Provider Unavailabl e Encounter Details Date Type Department Care Team (Late st Contact Info) Description 08/25/2001 Outpatient Historical [facility] Pediatrics [place] [address] [facility] [address] [place] [address] Kashmir Gunn MD [address] [facility] [address] [place] [address] Social History Tobacco Use Types Packs/Day Years Used Date Smoking Tobacco: Never Assessed Comments Unknown Sex and Gender Information Value Date Recorded Sex Assigned at Not on file Legal Sex Female 2:44 AM MOUNTER CLARINETS Gender Identity Not on file Sexual Orientation Not on file documented as of this encounter Plan of Treatment Not on file documented as of this encounter Visit Diagnoses Not on filedocumented in this encounter
--- OUTSIDE RECORDS SUMMARY | 2024-06-16 11:44 | XMS_ITS | Encounter Summary ---
Author Organization [facility] Address [address] [place] [address] Care Team Providers Care Police Communications Operator Name Role Phone Unavailable Primary Care Provider Unavailabl e Encounter Details Date Type Department Care Team (Late st Contact Info) Description 04/29/1999 Outpatient Historical [facility] Pediatrics [place] [address] [place] [address] Moises Guerrero Social History Tobacco Use Types Packs/Day Years Used Date Smoking Tobacco: Never Assessed Comments Unknown Sex and Gender Information Value Date Recorded Sex Assigned at Not on file Legal Sex Female 2:44 AM PUTTY AND PATCH 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
--- OUTSIDE RECORDS SUMMARY | 2024-06-16 11:44 | XMS_ITS | Encounter Summary ---
Author Organization [facility] Address [address] [place] [address] Care Team Providers Care Environmental Laboratory Technician Name Role Phone Unavailable Primary Care Provider Unavailabl e Encounter Details Date Type Department Care Team (Late st Contact Info) Description 02/13/2003 Outpatient Historical [facility] [address] [place] [address] Murtaza Mcnulty MD [address] [place] [address] Social History Tobacco Use Types Packs/Day Years Used Date Smoking Tobacco: Never Assessed Comments Unknown Sex and Gender Information Value Date Recorded Sex Assigned at Not on file Legal Sex Female 2:44 AM DIVERSITY SPECIALIST Gender Identity Not on file Sexual Orientation Not on file documented as of this encounter Plan of Treatment Not on file documented as of this encounter Visit Diagnoses Not on filedocumented in this encounter
--- OUTSIDE RECORDS SUMMARY | 2024-06-16 11:44 | XMS_ITS | Encounter Summary ---
Author Organization [facility] Address [address] [place] [address] Care Team Providers Care Intelligence Officer Name Role Phone Unavailable Primary Care Provider Unavailabl e Encounter Details Date Type Department Care Team (Late st Contact Info) Description 03/22/[address] [facility] Pediatrics [address] [place] [address] Murtaza Mcnulty MD [address] [place] [address] Social History Tobacco Use Types Packs/Day Years Used Date Smoking Tobacco: Never Assessed Comments Unknown Sex and Gender Information Value Date Recorded Sex Assigned at Not on file Legal Sex Female 2:44 AM MANAGER MERCHANDISE Gender Identity Not on file Sexual Orientation Not on file documented as of this encounter Plan of Treatment Not on file documented as of this encounter Visit Diagnoses Not on filedocumented in this encounter
--- OUTSIDE RECORDS SUMMARY | 2024-06-16 11:44 | XMS_ITS | Encounter Summary ---
Author Organization [facility] Address [address] [place] [address] Care Team Providers Care Pelts Skinner Name Role Phone Unavailable Primary Care Provider Unavailabl e Encounter Details Date Type Department Care Team (Late st Contact Info) Description 11/04/2004 Outpatient Historical [facility] Pediatrics [address] [place] [address] Murtaza Mcnulty MD [address] [place] [address] Social History Tobacco Use Types Packs/Day Years Used Date Smoking Tobacco: Never Assessed Comments Unknown Sex and Gender Information Value Date Recorded Sex Assigned at Not on file Legal Sex Female 2:44 AM JAVA ARCHITECT Gender Identity Not on file Sexual Orientation Not on file documented as of this encounter Plan of Treatment Not on file documented as of this encounter Visit Diagnoses Not on filedocumented in this encounter
--- OUTSIDE RECORDS SUMMARY | 2024-06-16 11:44 | XMS_ITS | Encounter Summary ---
Author Organization [facility] Address [address] [place] [address] Care Team Providers Care Supervisor Hot Dip Plating Name Role Phone Unavailable Primary Care Provider Unavailabl e Encounter Details Date Type Department Care Team (Late st Contact Info) Description 03/05/2001 Outpatient Historical [facility] Pediatrics [place] [address] [facility] [address] [place] [address] Luis Conklin MD [address] [place] [address] Social History Tobacco Use Types Packs/Day Years Used Date Smoking Tobacco: Never Assessed Comments Unknown Sex and Gender Information Value Date Recorded Sex Assigned at Not on file Legal Sex Female 2:44 AM MACHINE STRAW HAT PRESSER Gender Identity Not on file Sexual Orientation Not on file documented as of this encounter Plan of Treatment Not on file documented as of this encounter Visit Diagnoses Not on filedocumented in this encounter
--- OUTSIDE RECORDS SUMMARY | 2024-06-16 11:44 | XMS_ITS | Encounter Summary ---
Author Organization [facility] Address [address] [place] [address] Care Team Providers Care Glassie Name Role Phone Unavailable Primary Care Provider Unavailabl e Encounter Details Date Type Department Care Team (Late st Contact Info) Description 06/04/2003 Outpatient Historical [facility] Pediatrics [address] [place] [address] Murtaza Mcnulty MD [address] [place] [address] Social History Tobacco Use Types Packs/Day Years Used Date Smoking Tobacco: Never Assessed Comments Unknown Sex and Gender Information Value Date Recorded Sex Assigned at Not on file Legal Sex Female 2:44 AM INSTRUMENT TECH Gender Identity Not on file Sexual Orientation Not on file documented as of this encounter Plan of Treatment Not on file documented as of this encounter Visit Diagnoses Not on filedocumented in this encounter
--- OUTSIDE RECORDS SUMMARY | 2024-06-16 11:44 | XMS_ITS | Encounter Summary ---
Author Organization [facility] Address [address] [place] [address] Care Team Providers Care Leak Detector Name Role Phone Unavailable Primary Care Provider Unavailabl e Encounter Details Date Type Department Care Team (Late st Contact Info) Description 06/06/2001 Outpatient Historical [facility] Pediatrics [place] [address] [place] [address] Kashmir Gunn MD [address] [facility] [address] [place] [address] Social History Tobacco Use Types Packs/Day Years Used Date Smoking Tobacco: Never Assessed Comments Unknown Sex and Gender Information Value Date Recorded Sex Assigned at Not on file Legal Sex Female 2:44 AM BILLIARD PLAYER Gender Identity Not on file Sexual Orientation Not on file documented as of this encounter Plan of Treatment Not on file documented as of this encounter Visit Diagnoses Not on filedocumented in this encounter
--- OUTSIDE RECORDS SUMMARY | 2024-06-16 11:44 | XMS_ITS | Encounter Summary ---
Author Organization [facility] Address [address] [place] [address] Care Team Providers Care Hand Candy Molder Name Role Phone Unavailable Primary Care Provider Unavailabl e Encounter Details Date Type Department Care Team (Late st Contact Info) Description 05/31/1998 Outpatient Historical [facility] Pediatrics [address] [place] [address] Moises Guerrero Social History Tobacco Use Types Packs/Day Years Used Date Smoking Tobacco: Never Assessed Comments Unknown Sex and Gender Information Value Date Recorded Sex Assigned at Not on file Legal Sex Female 2:44 AM TRACTOR DRILL OPERATOR Gender Identity Not on file Sexual Orientation Not on file documented as of this encounter Plan of Treatment Not on file documented as of this encounter Procedures Procedure Name Priority Date/Time Associated Diagnosis Comments CHG HEPATITIS B VACCINE PED ADOL IM 3 DOSE VFC 05/31/1998 12:00 AM TRACTOR DRILL OPERATOR CHG DTAP VACCINE <7 YO IM VFC 05/31/1998 12:00 AM TRACTOR DRILL 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
--- OUTSIDE RECORDS SUMMARY | 2024-06-16 11:44 | XMS_ITS | Encounter Summary ---
Author Organization [facility] Address [address] [place] [address] Care Team Providers Care Manager Van Name Role Phone Unavailable Primary Care Provider Unavailabl e Encounter Details Date Type Department Care Team (Late st Contact Info) Description 04/09/1998 Outpatient Historical [facility] Pediatrics [place] [address] [place] [address] Moises Guerrero Social History Tobacco Use Types Packs/Day Years Used Date Smoking Tobacco: Never Assessed Comments Unknown Sex and Gender Information Value Date Recorded Sex Assigned at Not on file Legal Sex Female 2:44 AM SPEECH THERAPIST EARLY INTERVENTION Gender Identity Not on file Sexual Orientation Not on file documented as of this encounter Plan of Treatment Not on file documented as of this encounter Visit Diagnoses Not on filedocumented in this encounter
--- OUTSIDE RECORDS SUMMARY | 2024-06-16 11:44 | XMS_ITS | Encounter Summary ---
Author Organization [facility] Address [address] [place] [address] Care Team Providers Care Press Service Reader Name Role Phone Unavailable Primary Care Provider Unavailabl e Encounter Details Date Type Department Care Team (Late st Contact Info) Description 05/06/2004 Outpatient Historical [facility] Pediatrics [address] [place] [address] Murtaza Mcnulty MD [address] [place] [address] Social History Tobacco Use Types Packs/Day Years Used Date Smoking Tobacco: Never Assessed Comments Unknown Sex and Gender Information Value Date Recorded Sex Assigned at Not on file Legal Sex Female 2:44 AM CURED MEAT PACKING SUPERVISOR Gender Identity Not on file Sexual Orientation Not on file documented as of this encounter Plan of Treatment Not on file documented as of this encounter Visit Diagnoses Not on filedocumented in this encounter
[2024-06-16 11:51] LABS: Add Urine Microscopic? YES; Appearance Urine Turbid (Clear); Bacteria Urine None Seen /hpf; Bilirubin Urine Negative (Negative); Blood Urine Negative (Negative); Color Urine Yellow (Yellow); Glucose Urine UA Negative (Negative); Ketones Urine Negative (Negative); Leukocyte Esterase Ur Negative LEU/UL (Negative); Nitrate Urine Negative (Negative); Non Pathogenic Casts 0-2; Protein Urine Negative (Negative); RBC Urine 0-2 /hpf (0-2); Specific Grav Ur 1.022 (1.001-1.035); Squamous Epithelial Cell Urine Few /hpf (Few); Urobilinogen Urine 0.2 mg/dL (<2.0); pH Urine 7.5 (5.0-9.0)
[2024-06-16 12:31] VITALS: BP 121/74; PULSE 72; RESP 16; O2SAT 100
== END 2024-06-16 12:33 | disposition home or self-care (01) ==
PROVIDERS: Emergency Provider Physician Assistant
DX: O20.9 Hemorrhage in early pregnancy, unspecified (principal); O99.351 Diseases of the nervous system complicating pregnancy, first trimester; G47.30 Sleep apnea, unspecified; O99.331 Smoking (tobacco) complicating pregnancy, first trimester; F17.290 Nicotine dependence, other tobacco product, uncomplicated; Z3A.01 Less than 8 weeks gestation of pregnancy
CPT/HCPCS: 36415; 76801; 76817; 80053; 81001; 84702; 85025; 85461; 85610; 85730; 86850; 86900; 86901; 87086; 99284

== ENCOUNTER 2024-07-18 14:26 | Outpatient (RCR) | payer MEDICAID, SELFPAY ==
--- OUTSIDE RECORDS SUMMARY | 2024-07-18 14:31 | XMS_ITS | Encounter Summary ---
Author Organization [facility] Address [address] [place] [address] Care Team Providers Care Tube Splicer Name Role Phone Unavailable Primary Care Provider Unavailabl e Encounter Details Date Type Department Care Team (Late st Contact Info) Description 12/17/1998 Outpatient Historical [facility] Pediatrics [place] [address] [place] [address] Moises Guerrero Social History Tobacco Use Types Packs/Day Years Used Date Smoking Tobacco: Never Assessed Comments Unknown Sex and Gender Information Value Date Recorded Sex Assigned at Not on file Legal Sex Female 2:44 AM CHOPPER 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
--- OUTSIDE RECORDS SUMMARY | 2024-07-18 14:31 | XMS_ITS | Encounter Summary ---
Author Organization [facility] Address [address] [place] [address] Care Team Providers Care Pool Player Name Role Phone Unavailable Primary Care Provider Unavailabl e Encounter Details Date Type Department Care Team (Late st Contact Info) Description 01/05/2000 Outpatient Historical [facility] Pediatrics [place] [address] [facility] [address] [place] [address] Kashmir Gunn MD [address] [facility] [address] [place] [address] Social History Tobacco Use Types Packs/Day Years Used Date Smoking Tobacco: Never Assessed Comments Unknown Sex and Gender Information Value Date Recorded Sex Assigned at Not on file Legal Sex Female 2:44 AM MACHINE ASSISTANT Gender Identity Not on file Sexual Orientation Not on file documented as of this encounter Plan of Treatment Not on file documented as of this encounter Visit Diagnoses Not on filedocumented in this encounter
--- OUTSIDE RECORDS SUMMARY | 2024-07-18 14:31 | XMS_ITS | Encounter Summary ---
Author Organization [facility] Address [address] [place] [address] Care Team Providers Care Farm Machinery Set Up Mechanic Name Role Phone Unavailable Primary Care Provider Unavailabl e Encounter Details Date Type Department Care Team (Late st Contact Info) Description 04/29/1999 Outpatient Historical [facility] Pediatrics [place] [address] [place] [address] Moises Guerrero Social History Tobacco Use Types Packs/Day Years Used Date Smoking Tobacco: Never Assessed Comments Unknown Sex and Gender Information Value Date Recorded Sex Assigned at Not on file Legal Sex Female 2:44 AM ARBORICULTURE 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
--- OUTSIDE RECORDS SUMMARY | 2024-07-18 14:31 | XMS_ITS | Encounter Summary ---
Author Organization [facility] Address [address] [place] [address] Care Team Providers Care Therapeutic Strategy Lead Name Role Phone Unavailable Primary Care Provider Unavailabl e Encounter Details Date Type Department Care Team (Late st Contact Info) Description 08/23/[address] [facility] Pediatrics [place] [address] [place] [address] Moises Guerrero Social History Tobacco Use Types Packs/Day Years Used Date Smoking Tobacco: Never Assessed Comments Unknown Sex and Gender Information Value Date Recorded Sex Assigned at Not on file Legal Sex Female 2:44 AM FINANCIAL MANAGER Gender Identity Not on file Sexual Orientation Not on file documented as of this encounter Plan of Treatment Not on file documented as of this encounter Visit Diagnoses Not on filedocumented in this encounter
--- OUTSIDE RECORDS SUMMARY | 2024-07-18 14:31 | XMS_ITS | Encounter Summary ---
Author Organization [facility] Address [address] [place] [address] Care Team Providers Care Computer Sciences Professor Name Role Phone Unavailable Primary Care Provider Unavailabl e Encounter Details Date Type Department Care Team (Late st Contact Info) Description 03/26/2000 Outpatient Historical [facility] [place] [address] [facility] [address] [place] [address] Kashmir Gunn MD [address] [facility] [address] [place] [address] Social History Tobacco Use Types Packs/Day Years Used Date Smoking Tobacco: Never Assessed Comments Unknown Sex and Gender Information Value Date Recorded Sex Assigned at Not on file Legal Sex Female 2:44 AM COMMERCIAL LOAN REVIEWER Gender Identity Not on file Sexual Orientation Not on file documented as of this encounter Plan of Treatment Not on file documented as of this encounter Visit Diagnoses Not on filedocumented in this encounter
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
--- OUTSIDE RECORDS SUMMARY | 2024-07-18 14:31 | XMS_ITS | Encounter Summary ---
Author Organization [facility] Address [address] [place] [address] Care Team Providers Care Real Estate Teacher Name Role Phone Unavailable Primary Care Provider Unavailabl e Encounter Details Date Type Department Care Team (Late st Contact Info) Description 06/12/1999 Outpatient Historical [facility] Pediatrics [place] [address] [place] [address] Moises Guerrero Social History Tobacco Use Types Packs/Day Years Used Date Smoking Tobacco: Never Assessed Comments Unknown Sex and Gender Information Value Date Recorded Sex Assigned at Not on file Legal Sex Female 2:44 AM BREAKER OFF Gender Identity Not on file Sexual Orientation Not on file documented as of this encounter Plan of Treatment Not on file documented as of this encounter Visit Diagnoses Not on filedocumented in this encounter
--- OUTSIDE RECORDS SUMMARY | 2024-07-18 14:31 | XMS_ITS | Encounter Summary ---
Author Organization [facility] Address [address] [place] [address] Care Team Providers Care Credit Card Clerk Name Role Phone Unavailable Primary Care Provider Unavailabl e Encounter Details Date Type Department Care Team (Late st Contact Info) Description 09/06/1998 Outpatient Historical [facility] Pediatrics [place] [address] [place] [address] Moises Guerrero Social History Tobacco Use Types Packs/Day Years Used Date Smoking Tobacco: Never Assessed Comments Unknown Sex and Gender Information Value Date Recorded Sex Assigned at Not on file Legal Sex Female 2:44 AM FURNITURE INSTALLER Gender Identity Not on file Sexual Orientation Not on file documented as of this encounter Plan of Treatment Not on file documented as of this encounter Visit Diagnoses Not on filedocumented in this encounter
--- OUTSIDE RECORDS SUMMARY | 2024-07-18 14:31 | XMS_ITS | Encounter Summary ---
Author Organization [facility] Address [address] [place] [address] Care Team Providers Care Skin Washer Name Role Phone Unavailable Primary Care Provider Unavailabl e Encounter Details Date Type Department Care Team (Late st Contact Info) Description 05/29/1999 Outpatient Historical [facility] Pediatrics [place] [address] [place] [address] Moises Guerrero Social History Tobacco Use Types Packs/Day Years Used Date Smoking Tobacco: Never Assessed Comments Unknown Sex and Gender Information Value Date Recorded Sex Assigned at Not on file Legal Sex Female 2:44 AM CORPORATE CONCIERGE Gender Identity Not on file Sexual Orientation Not on file documented as of this encounter Plan of Treatment Not on file documented as of this encounter Visit Diagnoses Not on filedocumented in this encounter
--- OUTSIDE RECORDS SUMMARY | 2024-07-18 14:31 | XMS_ITS | Encounter Summary ---
Author Organization [facility] Address [address] [place] [address] Care Team Providers Care Tail Board Man Name Role Phone Unavailable Primary Care Provider Unavailabl e Encounter Details Date Type Department Care Team (Late st Contact Info) Description 08/11/1999 Outpatient Historical [facility] Pediatrics [place] [address] [place] [address] Moises Guerrero Social History Tobacco Use Types Packs/Day Years Used Date Smoking Tobacco: Never Assessed Comments Unknown Sex and Gender Information Value Date Recorded Sex Assigned at Not on file Legal Sex Female 2:44 AM ROOFER HELPER Gender Identity Not on file Sexual Orientation Not on file documented as of this encounter Plan of Treatment Not on file documented as of this encounter Visit Diagnoses Not on filedocumented in this encounter
--- OUTSIDE RECORDS SUMMARY | 2024-07-18 14:31 | XMS_ITS | Encounter Summary ---
Author Organization [facility] Address [address] [place] [address] Care Team Providers Care Hire Car Driver Name Role Phone Unavailable Primary Care Provider Unavailabl e Encounter Details Date Type Department Care Team (Late st Contact Info) Description 12/03/1998 Outpatient Historical [facility] Pediatrics [place] [address] [place] [address] Moises Guerrero Social History Tobacco Use Types Packs/Day Years Used Date Smoking Tobacco: Never Assessed Comments Unknown Sex and Gender Information Value Date Recorded Sex Assigned at Not on file Legal Sex Female 2:44 AM TIN ROLLER HOT MILL Gender Identity Not on file Sexual Orientation Not on file documented as of this encounter Plan of Treatment Not on file documented as of this encounter Visit Diagnoses Not on filedocumented in this encounter
--- OUTSIDE RECORDS SUMMARY | 2024-07-18 14:31 | XMS_ITS | Encounter Summary ---
Author Organization [facility] Address [address] [place] [address] Care Team Providers Care Staffing Manager Name Role Phone Unavailable Primary Care Provider Unavailabl e Encounter Details Date Type Department Care Team (Late st Contact Info) Description 06/01/2000 Outpatient Historical [facility] Pediatrics [place] [address] [facility] [address] [place] [address] Kashmir Gunn MD [address] [facility] [address] [place] [address] Social History Tobacco Use Types Packs/Day Years Used Date Smoking Tobacco: Never Assessed Comments Unknown Sex and Gender Information Value Date Recorded Sex Assigned at Not on file Legal Sex Female 2:44 AM SPECIAL ASSEMBLIES SUPERVISOR Gender Identity Not on file Sexual Orientation Not on file documented as of this encounter Plan of Treatment Not on file documented as of this encounter Visit Diagnoses Not on filedocumented in this encounter
--- OUTSIDE RECORDS SUMMARY | 2024-07-18 14:31 | XMS_ITS | Encounter Summary ---
Author Organization [facility] Address [address] [place] [address] Care Team Providers Care Bridge Operator Slip Name Role Phone Unavailable Primary Care Provider Unavailabl e Encounter Details Date Type Department Care Team (Late st Contact Info) Description 09/21/2000 Outpatient Historical [facility] Pediatrics [place] [address] [facility] [address] [place] [address] Edgar Morton MD [address] [facility] [address] [place] [address] Social History Tobacco Use Types Packs/Day Years Used Date Smoking Tobacco: Never Assessed Comments Unknown Sex and Gender Information Value Date Recorded Sex Assigned at Not on file Legal Sex Female 2:44 AM SHOE STITCHER Gender Identity Not on file Sexual Orientation Not on file documented as of this encounter Plan of Treatment Not on file documented as of this encounter Visit Diagnoses Not on filedocumented in this encounter
--- OUTSIDE RECORDS SUMMARY | 2024-07-18 14:31 | XMS_ITS | Encounter Summary ---
Author Organization [facility] Address [address] [place] [address] Care Team Providers Care Corporate Quality Manager Name Role Phone Unavailable Primary Care Provider Unavailabl e Encounter Details Date Type Department Care Team (Late st Contact Info) Description 08/23/1998 Outpatient Historical [facility] Pediatrics [place] [address] [place] [address] Moises Guerrero Social History Tobacco Use Types Packs/Day Years Used Date Smoking Tobacco: Never Assessed Comments Unknown Sex and Gender Information Value Date Recorded Sex Assigned at Not on file Legal Sex Female 2:44 AM ELECTRON TUBE ASSEMBLER Gender Identity Not on file Sexual Orientation Not on file documented as of this encounter Plan of Treatment Not on file documented as of this encounter Visit Diagnoses Not on filedocumented in this encounter
--- OUTSIDE RECORDS SUMMARY | 2024-07-18 14:31 | XMS_ITS | Encounter Summary ---
Author Organization Address [address] [place] [address] Care Team Providers Care Bottom Stainer Name Role Phone Unavailable Primary Care Provider Unavailabl e Encounter Details Date Type Department Care Team (Late st Contact Info) Description 11/28/1998 Outpatient Historical [facility] Pediatrics [place] [address] [place] [address] Moises Guerrero Social History Tobacco Use Types Packs/Day Years Used Date Smoking Tobacco: Never Assessed Comments Unknown Sex and Gender Information Value Date Recorded Sex Assigned at Not on file Legal Sex Female 2:44 AM INDUSTRIAL DIAMOND POLISHER Gender Identity Not on file Sexual Orientation Not on file documented as of this encounter Plan of Treatment Not on file documented as of this encounter Visit Diagnoses Not on filedocumented in this encounter
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
--- OUTSIDE RECORDS SUMMARY | 2024-07-18 14:31 | XMS_ITS | Encounter Summary ---
Author Organization [facility] Address [address] [place] [address] Care Team Providers Care Plaster Maker Name Role Phone Unavailable Primary Care Provider Unavailabl e Encounter Details Date Type Department Care Team (Late st Contact Info) Description 02/05/2000 Outpatient Historical [facility] Pediatrics [place] [address] [facility] [address] [place] [address] Kashmir Gunn MD [address] [facility] [address] [place] [address] Social History Tobacco Use Types Packs/Day Years Used Date Smoking Tobacco: Never Assessed Comments Unknown Sex and Gender Information Value Date Recorded Sex Assigned at Not on file Legal Sex Female 2:44 AM HIGH SCHOOL MATHEMATICS 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
--- OUTSIDE RECORDS SUMMARY | 2024-07-18 14:31 | XMS_ITS | Encounter Summary ---
Author Organization [facility] Address [address] [place] [address] Care Team Providers Care Bullet Assembly Press Setter Operator Name Role Phone Unavailable Primary Care Provider Unavailabl e Encounter Details Date Type Department Care Team (Late st Contact Info) Description 07/25/1999 Outpatient Historical [facility] Pediatrics [place] [address] [place] [address] Moises Guerrero Social History Tobacco Use Types Packs/Day Years Used Date Smoking Tobacco: Never Assessed Comments Unknown Sex and Gender Information Value Date Recorded Sex Assigned at Not on file Legal Sex Female 2:44 AM MD PHYSICIAN DERMATOLOGIST Gender Identity Not on file Sexual Orientation Not on file documented as of this encounter Plan of Treatment Not on file documented as of this encounter Visit Diagnoses Not on filedocumented in this encounter
--- OUTSIDE RECORDS SUMMARY | 2024-07-18 14:31 | XMS_ITS | Encounter Summary ---
Author Organization [facility] Address [address] [place] [address] Care Team Providers Care Any Commodity Sales Deliverer Name Role Phone Unavailable Primary Care Provider Unavailabl e Encounter Details Date Type Department Care Team (Late st Contact Info) Description 11/28/1998 Outpatient Historical [facility] Pediatrics [place] [address] [place] [address] Moises Guerrero Social History Tobacco Use Types Packs/Day Years Used Date Smoking Tobacco: Never Assessed Comments Unknown Sex and Gender Information Value Date Recorded Sex Assigned at Not on file Legal Sex Female 2:44 AM FASHION ARTIST Gender Identity Not on file Sexual Orientation Not on file documented as of this encounter Plan of Treatment Not on file documented as of this encounter Visit Diagnoses Not on filedocumented in this encounter
--- OUTSIDE RECORDS SUMMARY | 2024-07-18 14:31 | XMS_ITS | Encounter Summary ---
Author Organization [facility] Address [address] [place] [address] Care Team Providers Care Crosscutter Rolled Glass Name Role Phone Unavailable Primary Care Provider Unavailabl e Encounter Details Date Type Department Care Team (Late st Contact Info) Description 08/15/1999 Outpatient Historical [facility] Pediatrics [place] [address] [place] [address] Moises Guerrero Social History Tobacco Use Types Packs/Day Years Used Date Smoking Tobacco: Never Assessed Comments Unknown Sex and Gender Information Value Date Recorded Sex Assigned at Not on file Legal Sex Female 2:44 AM NETEZZA ARCHITECT Gender Identity Not on file Sexual Orientation Not on file documented as of this encounter Plan of Treatment Not on file documented as of this encounter Visit Diagnoses Not on filedocumented in this encounter
--- OUTSIDE RECORDS SUMMARY | 2024-07-18 14:31 | XMS_ITS | Encounter Summary ---
Author Organization [facility] Address [address] [place] [address] Care Team Providers Care Space Scheduler Name Role Phone Unavailable Primary Care Provider Unavailabl e Encounter Details Date Type Department Care Team (Late st Contact Info) Description 04/03/2000 Outpatient Historical [facility] Pediatrics [place] [address] [facility] [address] [place] [address] Luis Conklin MD [address] [place] [address] Social History Tobacco Use Types Packs/Day Years Used Date Smoking Tobacco: Never Assessed Comments Unknown Sex and Gender Information Value Date Recorded Sex Assigned at Not on file Legal Sex Female 2:44 AM LIQUID FLOOR AND WALL APPLIER Gender Identity Not on file Sexual Orientation Not on file documented as of this encounter Plan of Treatment Not on file documented as of this encounter Visit Diagnoses Not on filedocumented in this encounter
--- OUTSIDE RECORDS SUMMARY | 2024-07-18 14:31 | XMS_ITS | Encounter Summary ---
Author Organization [facility] Address [address] [place] [address] Care Team Providers Care Site Supervisor Name Role Phone Unavailable Primary Care Provider Unavailabl e Encounter Details Date Type Department Care Team (Late st Contact Info) Description 10/25/1998 Outpatient Historical [facility] Pediatrics [place] [address] [place] [address] Moises Guerrero Social History Tobacco Use Types Packs/Day Years Used Date Smoking Tobacco: Never Assessed Comments Unknown Sex and Gender Information Value Date Recorded Sex Assigned at Not on file Legal Sex Female 2:44 AM GENERATOR MAN Gender Identity Not on file Sexual Orientation Not on file documented as of this encounter Plan of Treatment Not on file documented as of this encounter Visit Diagnoses Not on filedocumented in this encounter
--- OUTSIDE RECORDS SUMMARY | 2024-07-18 14:31 | XMS_ITS | Clinical Summary ---
Author Organization [facility] Address [address] [place] [address] Phone Care Team Providers Care Customs Port Director Name Role Phone Unavailable Primary Care Provider [...] on file Legal Sex Female 2:44 AM PRESBYTERIAN CLERGY Gender Identity Not on file Sexual Orientation Not on file Occupation Industry Job Start Date Job End Date Not on file Not on file Not on file Not on file Last Filed Vital Signs Vital Sign Reading Time Taken Comments Blood Pressure 110/80 01/28/2016 11:54 AM PRESBYTERIAN CLERGY Pulse 101 01/28/2016 11:54 AM PRESBYTERIAN CLERGY Temperature 37.1 C (98.7 F) 01/28/2016 11:54 AM PRESBYTERIAN CLERGY Respiratory Rate 18 01/28/2016 11:54 AM PRESBYTERIAN CLERGY Oxygen Saturation 97% 01/28/2016 11:54 AM PRESBYTERIAN CLERGY Inhaled Oxygen Concentration - - Weight 61.7 kg (136 lb) 01/28/2016 11:54 AM PRESBYTERIAN CLERGY Height 160 cm (5' 3) 01/28/2016 11:54 AM PRESBYTERIAN CLERGY Body Mass Index 24.09 01/28/2016 11:54 AM PRESBYTERIAN CLERGY Plan of Treatment Health Maintenance Due Date Last Done Comments HPV VACCINES (1 - 3-dose series) 2012 DTAP/TDAP/TD VACCINES (1 - Tdap) 2016 HEPATITIS B VACCINES (1 of 3 - 19+ 3-dose series) 10/31 CERVICAL CANCER SCREENING 2018 HPV/Cotest (21-29) 2018 PAP SMEAR 2018 INFLUENZA VACCINE (#1) 2023
--- OUTSIDE RECORDS SUMMARY | 2024-07-18 14:31 | XMS_ITS | Clinical Summary ---
Author Organization [facility] Address [address] [place] [address] Phone Care Team Providers Care Clay Pigeon Loader Name Role Phone Varun Chavez MD Primary [...] 11:33 AM CDT Height 162.6 cm (5' 4) 05/14/2022 11:33 AM CDT Body Mass Index [...] making a change Department associated with goal: [facility] Steps to achieve goal: [...] track(2021 2:25 PM CDT) Yes Sandra Rich, [facility] Insurance MEDICAID [employer] Care Teams Clay Pigeon Loader Relationship Specialty Start Date End Date Varun Chavez MD [address] [place] [address] PCP - General Internal Medicine 11/13/21
--- OUTSIDE RECORDS SUMMARY | 2024-07-18 14:32 | XMS_ITS | Encounter Summary ---
Author Organization [facility] Address [address] [place] [address] Care Team Providers Care Cold Rolling Supervisor Name Role Phone Unavailable Primary Care Provider Unavailabl e Encounter Details Date Type Department Care Team (Late st Contact Info) Description 03/22/2002 Outpatient Historical [facility] Pediatrics [address] [place] [address] Murtaza Mcnulty MD [address] [place] [address] Social History Tobacco Use Types Packs/Day Years Used Date Smoking Tobacco: Never Assessed Comments Unknown Sex and Gender Information Value Date Recorded Sex Assigned at Not on file Legal Sex Female 2:44 AM WIND SCIENCE AND PLANNING Gender Identity Not on file Sexual Orientation Not on file documented as of this encounter Plan of Treatment Not on file documented as of this encounter Visit Diagnoses Not on filedocumented in this encounter
--- OUTSIDE RECORDS SUMMARY | 2024-07-18 14:32 | XMS_ITS | Encounter Summary ---
Author Organization [facility] Address [address] [place] [address] Care Team Providers Care Etiologist Name Role Phone Unavailable Primary Care Provider Unavailabl e Encounter Details Date Type Department Care Team (Late st Contact Info) Description 07/09/2004 Outpatient Historical [facility] Pediatrics [address] [place] [address] Murtaza Mcnulty MD [address] [place] [address] Social History Tobacco Use Types Packs/Day Years Used Date Smoking Tobacco: Never Assessed Comments Unknown Sex and Gender Information Value Date Recorded Sex Assigned at Not on file Legal Sex Female 2:44 AM SAP FICO ARCHITECT Gender Identity Not on file Sexual Orientation Not on file documented as of this encounter Plan of Treatment Not on file documented as of this encounter Visit Diagnoses Not on filedocumented in this encounter
--- OUTSIDE RECORDS SUMMARY | 2024-07-18 14:32 | XMS_ITS | Encounter Summary ---
Author Organization [facility] Address [address] [place] [address] Care Team Providers Care Bridge Rigger Name Role Phone Unavailable Primary Care Provider Unavailabl e Encounter Details Date Type Department Care Team (Late st Contact Info) Description 02/12/[address] [facility] Pediatrics [address] [place] [address] Murtaza Mcnulty MD [address] [place] [address] Social History Tobacco Use Types Packs/Day Years Used Date Smoking Tobacco: Never Assessed Comments Unknown Sex and Gender Information Value Date Recorded Sex Assigned at Not on file Legal Sex Female 2:44 AM MANAGER EQUIPMENT Gender Identity Not on file Sexual Orientation Not on file documented as of this encounter Plan of Treatment Not on file documented as of this encounter Visit Diagnoses Not on filedocumented in this encounter
--- OUTSIDE RECORDS SUMMARY | 2024-07-18 14:32 | XMS_ITS | Encounter Summary ---
Author Organization [facility] Address [address] [place] [address] Care Team Providers Care Caddy/Caddie Supervisor Name Role Phone Unavailable Primary Care Provider Unavailabl e Encounter Details Date Type Department Care Team (Late st Contact Info) Description 02/06/2004 Outpatient Historical [facility] Pediatrics [address] [place] [address] Murtaza Mcnulty MD [address] [place] [address] Social History Tobacco Use Types Packs/Day Years Used Date Smoking Tobacco: Never Assessed Comments Unknown Sex and Gender Information Value Date Recorded Sex Assigned at Not on file Legal Sex Female 2:44 AM FIRE INFORMATION OFFICER Gender Identity Not on file Sexual Orientation Not on file documented as of this encounter Plan of Treatment Not on file documented as of this encounter Visit Diagnoses Not on filedocumented in this encounter
--- OUTSIDE RECORDS SUMMARY | 2024-07-18 14:32 | XMS_ITS | Encounter Summary ---
Author Organization [facility] Address [address] [place] [address] Care Team Providers Care Receiver/Laborer Name Role Phone Unavailable Primary Care Provider Unavailabl e Encounter Details Date Type Department Care Team (Late st Contact Info) Description 03/05/2001 Outpatient Historical [facility] Pediatrics [place] [address] [facility] [address] [place] [address] Luis Conklin MD [address] [place] [address] Social History Tobacco Use Types Packs/Day Years Used Date Smoking Tobacco: Never Assessed Comments Unknown Sex and Gender Information Value Date Recorded Sex Assigned at Not on file Legal Sex Female 2:44 AM AUTOMOTIVE PAINT TECHNICIAN Gender Identity Not on file Sexual Orientation Not on file documented as of this encounter Plan of Treatment Not on file documented as of this encounter Visit Diagnoses Not on filedocumented in this encounter
--- OUTSIDE RECORDS SUMMARY | 2024-07-18 14:32 | XMS_ITS | Encounter Summary ---
Author Organization [facility] Address [address] [place] [address] Care Team Providers Care Cat Tender Name Role Phone Unavailable Primary Care Provider Unavailabl e Encounter Details Date Type Department Care Team (Late st Contact Info) Description 01/14/1998 Outpatient Historical [facility] Pediatrics [place] [address] [place] [address] Moises Guerrero Social History Tobacco Use Types Packs/Day Years Used Date Smoking Tobacco: Never Assessed Comments Unknown Sex and Gender Information Value Date Recorded Sex Assigned at Not on file Legal Sex Female 2:44 AM NAVAL SURFACE FIRE SUPPORT PLANNER Gender Identity Not on file Sexual Orientation Not on file documented as of this encounter Plan of Treatment Not on file documented as of this encounter Visit Diagnoses Not on filedocumented in this encounter
--- OUTSIDE RECORDS SUMMARY | 2024-07-18 14:32 | XMS_ITS | Encounter Summary ---
Author Organization [facility] Address [address] [place] [address] Care Team Providers Care Police Surgeon Name Role Phone Unavailable Primary Care Provider Unavailabl e Encounter Details Date Type Department Care Team (Late st Contact Info) Description 01/07/1998 Outpatient Historical [facility] Pediatrics [place] [address] [place] [address] Moises Guerrero Social History Tobacco Use Types Packs/Day Years Used Date Smoking Tobacco: Never Assessed Comments Unknown Sex and Gender Information Value Date Recorded Sex Assigned at Not on file Legal Sex Female 2:44 AM FHA UNDERWRITER Gender Identity Not on file Sexual Orientation Not on file documented as of this encounter Plan of Treatment Not on file documented as of this encounter Visit Diagnoses Not on filedocumented in this encounter
--- OUTSIDE RECORDS SUMMARY | 2024-07-18 14:32 | XMS_ITS | Encounter Summary ---
Author Organization [facility] Address [address] [place] [address] Care Team Providers Care Enrollment Manager Name Role Phone Unavailable Primary Care Provider Unavailabl e Encounter Details Date Type Department Care Team (Late st Contact Info) Description 11/04/2004 Outpatient Historical [facility] Pediatrics [address] [place] [address] Murtaza Mcnulty MD [address] [place] [address] Social History Tobacco Use Types Packs/Day Years Used Date Smoking Tobacco: Never Assessed Comments Unknown Sex and Gender Information Value Date Recorded Sex Assigned at Not on file Legal Sex Female 2:44 AM DIET SUPERVISOR Gender Identity Not on file Sexual Orientation Not on file documented as of this encounter Plan of Treatment Not on file documented as of this encounter Visit Diagnoses Not on filedocumented in this encounter
--- OUTSIDE RECORDS SUMMARY | 2024-07-18 14:32 | XMS_ITS | Encounter Summary ---
Author Organization [facility] Address [address] [place] [address] Care Team Providers Care Doughnut Fryer Name Role Phone Unavailable Primary Care Provider Unavailabl e Encounter Details Date Type Department Care Team (Late st Contact Info) Description 05/31/1998 Outpatient Historical [facility] Pediatrics [address] [place] [address] Moises Guerrero Social History Tobacco Use Types Packs/Day Years Used Date Smoking Tobacco: Never Assessed Comments Unknown Sex and Gender Information Value Date Recorded Sex Assigned at Not on file Legal Sex Female 2:44 AM HELP DESK TECHNICIAN Gender Identity Not on file Sexual Orientation Not on file documented as of this encounter Plan of Treatment Not on file documented as of this encounter Procedures Procedure Name Priority Date/Time Associated Diagnosis Comments CHG HEPATITIS B VACCINE PED ADOL IM 3 DOSE VFC 05/31/1998 12:00 AM HELP DESK TECHNICIAN CHG DTAP VACCINE <7 YO IM VFC 05/31/1998 12:00 AM HELP DESK TECHNICIAN documented in this encounter Visit Diagnoses Not on filedocumented in this encounter
--- OUTSIDE RECORDS SUMMARY | 2024-07-18 14:32 | XMS_ITS | Encounter Summary ---
Author Organization [facility] Address [address] [place] [address] Care Team Providers Care Roller Machine Operator Name Role Phone Unavailable Primary Care Provider Unavailabl e Encounter Details Date Type Department Care Team (Late st Contact Info) Description 05/06/2004 Outpatient Historical [facility] Pediatrics [address] [place] [address] Murtaza Mcnulty MD [address] [place] [address] Social History Tobacco Use Types Packs/Day Years Used Date Smoking Tobacco: Never Assessed Comments Unknown Sex and Gender Information Value Date Recorded Sex Assigned at Not on file Legal Sex Female 2:44 AM DELIVERY DEPARTMENT SUPERVISOR Gender Identity Not on file Sexual Orientation Not on file documented as of this encounter Plan of Treatment Not on file documented as of this encounter Visit Diagnoses Not on filedocumented in this encounter
--- OUTSIDE RECORDS SUMMARY | 2024-07-18 14:32 | XMS_ITS | Encounter Summary ---
Author Organization [facility] Address [address] [place] [address] Care Team Providers Care Explosive Man Name Role Phone Unavailable Primary Care Provider Unavailabl e Encounter Details Date Type Department Care Team (Late st Contact Info) Description 08/25/2001 Outpatient Historical [facility] Pediatrics [place] [address] [facility] [address] [place] [address] Kashmir Gunn MD [address] [facility] [address] [place] [address] Social History Tobacco Use Types Packs/Day Years Used Date Smoking Tobacco: Never Assessed Comments Unknown Sex and Gender Information Value Date Recorded Sex Assigned at Not on file Legal Sex Female 2:44 AM PERFORATOR LOADER Gender Identity Not on file Sexual Orientation Not on file documented as of this encounter Plan of Treatment Not on file documented as of this encounter Visit Diagnoses Not on filedocumented in this encounter
--- OUTSIDE RECORDS SUMMARY | 2024-07-18 14:32 | XMS_ITS | Data Portability ---
Author Organization [place] [facility] [employer], Main Office Address [address] [place] [address] Assessment No assessment recorded. Plan of Treatment [...] 2016, 41(Shaw ppl.1 ):s13 -s22 Not Available [facility] (Lab) [address] [place], [address], 08/02/2020 21:21:32 08/03/1908/02/2020 TSH + free T4, serum thyroid-stim ulating hormone 1.870 uIU/m L 0.465- 4.680 Not Available [facility] (Lab) [address] [place], [address], 08/02/2020 18:47:19 08/03/1908/02/2020 T4, free, serum free T4 0.94 NG/dL 0.78-2 .19 Not Available [facility] (Lab) [address] [place], [address], 08/02/2020 18:13:37 08/03/19 21 08/02/2020 pregn elio [...] 19 6,800 TO 42,90 0 Not Available [facility] (Lab) [address] [place], [address], 08/02/2020 18:13:32 08/03/19 21 08/02/2020 vitam in D, 25-hy droxy , total , serum vd25oh 46.6 NG/mL 30-100 Vitam in D Statu s: Defic ient: <20 ng/mL Insuf ficie nt: 20-29 ng/mL Suffi cient : 30-10 0 ng/mL Not Available [facility] (Lab) [address] [place], [address], 08/02/2020 18:12:47 08/03/19 21 08/02/2020 lipid panel , serum cholesterol 127 mg/dL 140-19 9 low NIH JASON NSUS RECOM MENDA TION FOR GLENIS STERO L: ADULT CHILD LOW RISK: <200 <170 BORDE RLINE : <200- 239 ----- HIGH RISK: >240 >200 Not Available [facility] (Lab) [address] [place], [address], 08/02/2020 17:46:51 08/03/19 21 08/02/2020 lipid panel , serum triglyceride s 62 mg/dL 0-150 NIH JASON NSUS REPOR T RECOM MENDA TION FOR TRIGL YCERI RENA: ADULT CHILD LOW RISK: <150 ----- BODER LINE: 150-1 99 ----- HIGH RISK: >200 ----- Not Available [facility] (Lab) [address] [place], [address], 08/02/2020 17:46:51 08/03/19 21 08/02/2020 lipid panel , serum HDL cholesterol 53 mg/dL 40- Not Available [facility] (Lab) [address] [place], [address], 08/02/2020 17:46:51 08/03/19 21 08/02/2020 lipid panel [...] WILL NOT BE REPOR KELI. Not Available [facility] (Lab) [address] [place], [address], 08/02/2020 17:46:51 08/03/1908/02/2020 CMP, serum or plasm a sodium 139 mmol/ L 137-14 5 Not Available [facility] (Lab) [address] [place], [address], 08/02/2020 17:46:43 08/03/19 21 08/02/2020 CMP, serum or plasm a potassium 4.3 mmol/ L 3.5-5. 1 Not Available [facility] (Lab) [address] [place], [address], 08/02/2020 17:46:43 08/03/19 21 08/02/2020 CMP, serum or plasm a chloride 104 mmol/ L 98-107 Not Available [facility] (Lab) [address] [place], [address], 08/02/2020 17:46:43 08/03/19 21 08/02/2020 CMP, serum or plasm a carbon dioxide 29 mmol/ L 22-30 Not Available [facility] (Lab) [address] [place], [address], 08/02/2020 17:46:43 08/03/19 21 08/02/2020 CMP, serum or plasm a agap 10.3 mmol/ L 14-22 low Not Available [facility] (Lab) [address] [place], [address], 08/02/2020 17:46:43 08/03/19 21 08/02/2020 CMP, serum or plasm a glucose 75 mg/dL 70-99 Not Available [facility] (Lab) [address] [place], [address], 08/02/2020 17:46:43 08/03/19 21 08/02/2020 CMP, serum or plasm a BUN 10 mg/dL 8-19 Not Available [facility] (Lab) [address] [place], [address], 08/02/2020 17:46:43 08/03/19 21 08/02/2020 CMP, serum or plasm a creatinine 0.70 mg/dL 0.66-1 .25 Not Available [facility] (Lab) [address] [place], [address], 08/02/2020 17:46:43 08/03/19 21 08/02/2020 CMP, serum or plasm a GFR >60 Refer ence Range : [place] ge GFR Healt hy Adult : >60 [...] lator can be locat ed on the [facility] websi te: [email or web address] :[email or web address] rg/pr ofess ional s/kdo qi/gf r_cal culat or Not Available [facility] (Lab) [address] [place], [address], 08/02/2020 17:46:43 08/03/1908/02/2020 CMP, serum or plasm a alkaline phosphatase 51 U/L 38-126 Not Available [facility] (Lab) [address] [place], [address], 08/02/2020 17:46:43 08/03/1908/02/2020 CMP, serum or plasm a alanine aminotransfe rase 12 U/L 0-35 Not Available [facility] (Lab) [address] [place], [address], 08/02/2020 17:46:43 08/03/19 21 08/02/2020 CMP, serum or plasm a aspartate aminotransfe rase 21 U/L 15-37 Not Available [facility] (Lab) [address] [place], [address], 08/02/2020 17:46:43 08/03/19 21 08/02/2020 CMP, serum or plasm a bilirubin, total 0.40 mg/dL 0.20-1 .30 Not Available [facility] (Lab) [address] [place], [address], 08/02/2020 17:46:43 08/03/19 21 08/02/2020 CMP, serum or plasm a calcium 9.7 mg/dL 8.4-10 .2 Not Available [facility] (Lab) [address] [place], [address], 08/02/2020 17:46:43 08/03/1908/02/2020 CMP, serum or plasm a total protein 7.3 g/dL 6.3-8. 2 Not Available [facility] (Lab) [address] [place], [address], 08/02/2020 17:46:43 08/03/1908/02/2020 CMP, serum or plasm a albumin 4.7 g/dL 3.4-5. 0 Not Available [facility] (Lab) [address] [place], [address], 08/02/2020 17:46:43 08/03/1908/02/2020 CMP, serum or plasm a globulin 2.6 g/dL 2.6-4. 2 Not Available [facility] (Lab) [address] [place], [address], 08/02/2020 17:46:43 08/03/1908/02/2020 CMP, serum or plasm a A/G ratio 1.8 ratio 1.0-2. 0 Not Available [facility] (Lab) [address] [place], [address], 08/02/2020 17:46:43 08/03/19 21 08/02/2020 urina lysis compl ete, refle x cultu re color light- yellow Not Available [facility] (Lab) [address] [place], [address], 08/02/2020 17:27:27 08/03/19 21 08/02/2020 urina lysis compl ete, refle x cultu re appear turbid abnormal Not Available [facility] (Lab) [address] [place], [address], 08/02/2020 17:27:27 08/03/19 21 08/02/2020 urina lysis compl ete, refle x cultu re specific gravity 1.021 1.001- 1.030 Not Available [facility] (Lab) [address] [place], [address], 08/02/2020 17:27:27 08/03/19 21 08/02/2020 urina lysis compl ete, refle x cultu re pH 7.5 pH_un its 5.0-9. 0 Not Available [facility] (Lab) [address] [place], [address], 08/02/2020 17:27:27 08/03/19 21 08/02/2020 urina lysis compl ete, refle x cultu re leukocytes negati ve carmencita/u L negati ve- Not Available [facility] (Lab) [address] [place], [address], 08/02/2020 17:27:27 08/03/19 21 08/02/2020 urina lysis compl ete, refle x cultu re nitrite negati ve negati ve- Not Available [facility] (Lab) [address] [place], [address], 08/02/2020 17:27:27 08/03/19 21 08/02/2020 urina lysis compl ete, refle x cultu re protein negati ve mg/dL negati ve- Not Available [facility] (Lab) [address] [place], [address], 08/02/2020 17:27:27 08/03/19 21 08/02/2020 urina lysis compl ete, refle x cultu re glucose normal mg/dL normal - Not Available [facility] (Lab) [address] [place], [address], 08/02/2020 17:27:27 08/03/19 21 08/02/2020 urina lysis compl ete, refle x cultu re ketones negati ve mg/dL negati ve- Not Available [facility] (Lab) [address] [place], [address], 08/02/2020 17:27:27 08/03/19 21 08/02/2020 urina lysis compl ete, refle x cultu re urobilinogen normal mg/dL normal - Not Available [facility] (Lab) [address] [place], [address], 08/02/2020 17:27:27 08/03/19 21 08/02/2020 urina lysis compl ete, refle x cultu re bilirubin negati ve mg/dL negati ve- Not Available [facility] (Lab) [address] [place], [address], 08/02/2020 17:27:27 08/03/19 21 08/02/2020 urina lysis compl ete, refle x cultu re blood negati ve mg/dL negati ve- Not Available [facility] (Lab) [address] [place], [address], 08/02/2020 17:27:27 06/0408/02/2020 urina lysis compl ete, refle x cultu re white blood cells 0-8 /i??h pfi?? 0-8 Not Available [facility] (Lab) [address] [place], [address], 08/02/2020 17:27:27 08/03/19 21 08/02/2020 urina lysis compl ete, refle x cultu re red blood cells 0-4 /i??h pfi?? 0-4 Not Available [facility] (Lab) [address] [place], [address], 08/02/2020 17:27:27 08/03/19 21 08/02/2020 urina lysis compl ete, refle x cultu re bacteria none Not Available [facility] (Lab) [address] [place], [address], 08/02/2020 17:27:27 08/03/19 21 08/02/2020 urina lysis compl ete, refle x cultu re squamous epithelial modera te /i??l pfi?? abnormal Not Available [facility] (Lab) [address] [place], [address], 08/02/2020 17:27:27 08/03/19 21 08/02/2020 urina lysis compl ete, refle x cultu re amorphous crystal occasi onal /i??h pfi?? abnormal Not Available [facility] (Lab) [address] [place], [address], 08/02/2020 17:27:27 08/03/19 21 08/02/2020 CBC w/ auto diff white blood cells 11.5 x10'3 /uL 4.2-10 .8 high Not Available [facility] (Lab) [address] [place], [address], 08/02/2020 16:48:23 08/03/19 21 08/02/2020 CBC w/ auto diff red blood cells 4.54 x10'6 /uL 3.80-5 .20 Not Available [facility] (Lab) [address] [place], [address], 08/02/2020 16:48:23 08/03/19 21 08/02/2020 CBC w/ auto diff hemoglobin 13.4 g/dL 12.0-1 5.6 Not Available [facility] (Lab) [address] [place], [address], 08/02/2020 16:48:23 08/03/19 21 08/02/2020 CBC w/ auto diff hematocrit 40.3 % 35.7-4 5.7 Not Available [facility] (Lab) [address] [place], [address], 08/02/2020 16:48:23 08/03/19 21 08/02/2020 CBC w/ auto diff mean red cell volume 88.8 fL 82.0-9 9.0 Not Available [facility] (Lab) [address] [place], [address], 08/02/2020 16:48:23 08/03/19 21 08/02/2020 CBC w/ auto diff mean red cell hemoglobin 29.5 pg 27.0-3 3.0 Not Available [facility] (Lab) [address] [place], [address], 08/02/2020 16:48:23 08/03/19 21 08/02/2020 CBC w/ auto diff mean RBC HGB concentratio n 33.3 g/dL 31.0-3 6.0 Not Available [facility] (Lab) [address] [place], [address], 08/02/2020 16:48:23 08/03/19 21 08/02/2020 CBC w/ auto diff red cell distribution width 13.2 % 11.8-1 5.5 Not Available [facility] (Lab) [address] [place], [address], 08/02/2020 16:48:23 08/03/19 21 08/02/2020 CBC w/ auto diff platelets 304 x10'3 /uL 150-40 0 Not Available [facility] (Lab) [address] [place], [address], 08/02/2020 16:48:23 08/03/19 21 08/02/2020 CBC w/ auto diff mean platelet volume 10.1 fL 9.0-12 .4 Not Available [facility] (Lab) [address] [place], [address], 08/02/2020 16:48:23 08/03/19 21 08/02/2020 CBC w/ auto diff neutrophils 66.5 % 39.0-7 2.0 Not Available [facility] (Lab) [address] [place], [address], 08/02/2020 16:48:23 08/03/19 21 08/02/2020 CBC w/ auto diff lymphocytes 18.2 % 16.0-4 7.0 Not Available [facility] (Lab) [address] [place], [address], 08/02/2020 16:48:23 08/03/19 21 08/02/2020 CBC w/ auto diff monocytes 8.9 % 5.0-12 .0 Not Available [facility] (Lab) [address] [place], [address], 08/02/2020 16:48:23 08/03/19 21 08/02/2020 CBC w/ auto diff eosinophils 4.8 % 1.0-7. 0 Not Available [facility] (Lab) [address] [place], [address], 08/02/2020 16:48:23 08/03/19 21 08/02/2020 CBC w/ auto diff basophils 0.8 % 0.0-2. 0 Not Available [facility] (Lab) [address] [place], [address], 08/02/2020 16:48:23 08/03/19 21 08/02/2020 CBC w/ auto diff immature granulocytes 0.8 % 0.00-0 .50 high Not Available [facility] (Lab) [address] [place], [address], 08/02/2020 16:48:23 08/03/19 21 08/02/2020 CBC w/ auto diff neutrophils, absolute count 7.66 x10'3 /uL 1.5-8. 0 Not Available [facility] (Lab) [address] [place], [address], 08/02/2020 16:48:23 08/03/19 21 08/02/2020 CBC w/ auto diff lymphocytes, absolute count 2.09 x10'3 /uL 1.07-3 .43 Not Available [facility] (Lab) [address] [place], [address], 08/02/2020 16:48:23 08/03/19 21 08/02/2020 CBC w/ auto diff monocytes, absolute count 1.03 x10'3 /uL 0.29-0 .99 high Not Available [facility] (Lab) [address] [place], [address], 08/02/2020 16:48:23 08/03/19 21 08/02/2020 CBC w/ auto diff eosinophils, absolute count 0.55 x10'3 /uL 0.02-0 .53 high Not Available [facility] (Lab) [address] [place], [address], 08/02/2020 16:48:23 08/03/19 21 08/02/2020 CBC w/ auto diff basophils, absolute count 0.09 x10'3 /uL 0.01-0 .08 high Not Available [facility] (Lab) [address] [place], [address], 08/02/2020 16:48:23 08/03/19 21 08/02/2020 CBC w/ auto diff immature granulocytes ,absolute 0.09 x10'3 /uL 0.00-0 .05 high Not Available [facility] (Lab) [address] [place], [address], 08/02/2020 16:48:23 08/03/19 21 08/02/2020 CBC w/ auto diff nucleated red blood cells 0.0 % -0 Not Available [facility] (Lab) [address] [place], [address], 08/02/2020 16:48:23 08/03/19 21 08/02/2020 CBC w/ auto diff NRBC# 0.00 x10'3 /uL Not Available [facility] (Lab) [address] [place], [address], 08/02/2020 16:48:23 08/27/19 21 08/27/2020 CT, NG, TRICH VAG BY LATISHA chlamydia by LATISHA negati ve negati ve Not Available [facility] ([facility]) [address] [place], [address], 08/28/2020 06:12:24 08/27/1908/27/2020 CT, NG, TRICH VAG BY LATISHA gonococcus by LATISHA negati ve negati ve Not Available [facility] ([facility]) [address] [place], [address], 08/28/2020 06:12:24 08/27/19 21 08/27/2020 CT, NG, TRICH VAG BY LATISHA trich vag by LATISHA negati ve negati ve Not Available [facility] ([facility]) [address] [place], [address], 08/28/2020 06:12:24 08/28/19 21 08/27/2020 pregn eilo test, urine HCG negati ve Not Available [facility] [address], [place], [address], 08/26/2020 16:54:07 08/14/19 21 08/12/2020 US, pelvi s, trans abdom inal + trans vagin al [facility] [address], [place] [address] [employer] t Name: CHARIS ODONNELL Access ion #: [id number] Sex: F : 1995 0 Locati [...] pelvis . Page 1 of 2 [facility] Jordan velez Name: CHARIS ODONNELL Access ion #: [id number] Sex: F : 1995 0 Exam [...] 7:23 AM (CT) Page 2 of 2 [id number] [facility] (Imaging) [address] [place], [address], 04/29/2022 20:21:16 Result Notes None recorded. Problems Name Problem SNOMED Code Status Onset Date Resolution Date Notes Provider Name and Address Organization Details Recorded Time Depressive disorder 01984591 Active 021 Not Available [facility] 3 20:20:07 Anxiety 20395507 Active 021 Not Available [facility] 3 20:20:07 Problem Notes None recorded. Procedures Surgical History Date Name Laterality Status Provider Name and Address Organization Details Recorded Time Sinus Surgery completed Not Available [facility] th 04/29/2022 20:19:31 Back Surgery completed Not Available [facility] 04/29/2022 20:19:31 Remove tonsils and adenoids completed Not Available [facility] 04/29/2022 20:19:31 Imaging Results Imaging Date Name Status LastModified by Organization Details LastModified Time 08/12/2020 US, pelvis, transabdominal + transvaginal completed [id number] [facility] (Imaging) [address] [place], [address], 04/29/2022 20:21:16 Procedure Notes None recorded. Medical Equipment None Reported. Allergies Allergen ID Allergen Name Allergen Category Reaction Reaction Severity Criticality Documentation Date Start Date Code Code System Note Provider Name and Address Organization Details Recorded Time 56704 Substance with sulfonami de structure and antibacte rial mechanism of action (substanc e) medicatio n rash Not available Not available 04/29/2022 03157 8003 SNOMED Not Available [facility] 3 20:21:14 Medications Name Sig Start Date [...] % 100 % 92 /min 98.1 [degF] 72199.1 9 g 112 mm[Hg] 82 mm[Hg] Not Available [facility] 3 20:19:57 Date Recorded Body mass index (BMI) Body height Oxygen saturation Oxygen saturation in Arterial blood by Pulse oximetry Heart rate Body temperature Body weight Systolic blood pressure Diastolic blood pressure Provider Name and Address Organization Details Last Updated DateTime 1 28 kg/m2 160.02 cm 98 % 98 % 85 /min 98 [degF] 72761.5 9 g 116 mm[Hg] 80 mm[Hg] Not Available [facility] 3 20:19:57 Date Recorded Body mass index (BMI) Body height Body weight Systolic blood pressure Diastolic blood pressure Provider Name and Address Organization Details Last Updated DateTime 08/26/2020 27.8 kg/m2 160.02 cm 73959 g 120 mm[Hg] 80 mm[Hg] Not Available [facility] 3 20:19:57 Date Recorded Body mass index (BMI) Body height Body temperature Body weight Systolic blood pressure Diastolic blood pressure Provider Name and Address Organization Details Last Updated DateTime 1 28.3 kg/m2 160.02 cm 97.9 [degF] 06701.7 8 g 119 mm[Hg] 78 mm[Hg] Not Available [facility] 3 20:19:57 Social History Question Answer Notes LastModified by Organizat ion Details LastModified Time Tobacco Smoking Status Never Smoker Not Available [facility] 04/29/2022 20:19:29 What Is Your Level Of Caffeine Consumption? Moderate [id number] Information not available 04/29/2022 How Much Tobacco Do You Chew? None [id number] Information not available 04/29/2022 In The 14 Days Before Symptom Onset, Have You Had Close Contact With A Laboratory-confirm ed COVID-19 While That Case Was Ill? No [id number] Information not available 04/29/2022 In The 14 Days Before Symptom Onset, Have You Had Close Contact With A Person Who Is Under Investigation For COVID-19 While That Person Was Ill? No [id number] Information not available 04/29/2022 What Type Of Diet Are You Following? REGULAR [id number] Information not available 04/29/2022 Which Illicit Or Recreational Drugs Have You Used? No [id number] Information not available 04/29/2022 Are There Any Guns Present In Your Home? No [id number].[id number] Information not available 04/29/2022 What Was The Date Of Your Most Recent Tobacco Screening? 08/09/2020 [id number].132002 2732 Information not available 04/29/2022 Are You Passively Exposed To Smoke? Yes [id number].[id number] Information not available 04/29/2022 How Much Tobacco Do You Smoke? No [id number].[id number] Information not available 04/29/2022 Sex: Female Functional Status Question Answer Note LastModified by Organizat ion Details LastModified Time What is your level of alcohol consumption? None [id number] Information not available 04/29/2022 Do you or have you ever used smokeless tobacco? Never used smokeless tobacco [id number] Information not available 04/29/2022 Do you or have you ever used e-cigarettes or vape? Current user of electronic cigarettes Vape occasionally MIGRATION.40045 11146 Information not available 04/29/2022 What is your exercise level? None MIGRATION.06602 [id number] Information not available 04/29/2022 Mental Status None recorded. Family History Relationship Description Onset Age of this Age Resolved Age Notes LastModified by Organization Details LastModified Time Mother Diabetes mellitus [id number] Not available 04/29/2022 20:19:32 Mother Anxiety disorder [id number] [id number] Not available 04/29/2022 20:19:32 Mother Depressive disorder [id number].599 [id number] Not available 04/29/2022 20:19:32 Sister Anxiety disorder [id number].221 [id number] Not available 04/29/2022 20:19:32 Sister Anxiety disorder [id number].109 [id number] Not available 04/29/2022 20:19:32 Sister Depressive disorder [id number].924 [id number] Not available 04/29/2022 20:19:33 Sister Depressive disorder [id number].167 [id number] Not available 04/29/2022 20:19:33 Medical History Condition Response CHICKENPOX Y SLEEP APNEA Y SKIN PROBLEMS Y HEARTBURN / REFLUX Y DEPRESSION (INCLUDING POST ) Y BACK / NECK PROBLEMS Y HAVE YOU BEEN HOSPITALIZED OR SEEN IN [facility] IN THE PAST YEAR ? Y ANXIETY DISORDER Y ECZEMA Y Gynecological History Statement/Question Response Abnormal Pap [...] SNOMED-CT Code Diagnosis ICD10 Code Diagnosis Note [id number] Cristine kelly [facility] [address] [address] 08/02/2020 00:00:00 08/02/2020 15:57:22 [id number] Cristine kelly MD [facility] [address] [address] 08/09/2020 00:00:00 08/09/2020 17:12:13 [id number] S_Histor ic_[facility] _ATHENA_M IGRATION_ DEFAULT_1 _1 , 08/26/2020 00:00:00 08/26/2020 18:24:25 [id number] [facility]_Histor [facility] _ATHENA_M IGRATION_ DEFAULT_1 _1 , 11/25/2020 00:00:00 11/25/2020 16:23:15 [id number] Annabelle Denney NP [facility] [address] [place] [address] 08/13/2020 00:00:00 08/13/2020 11:06:48 [id number] Annabelle Denney NP [facility] [address] [facility] [address] [address] 10/02/2020 00:00:00 10/02/2020 18:04:03 [id number] Annabelle Denney NP [facility] [address] [address] 10/30/2020 00:00:00 10/30/2020 14:54:00 [id number] [facility] [address] [place] [address] [address] 11/28/2020 00:00:00 11/28/2020 15:54:58 [id number] Annabelle Denney NP [facility] [address], [facility] [address] [place] [address] 12/18/2020 00:00:00 12/18/2020 16:46:49 Health Concerns Section Related Observation LastModified by Organization Detai ls LastModified Time None Recorded Concern Status LastModified by Organization Details LastModified Time None Recorded Advance Directives Directive None Recorded Payers None recorded. OBGyn Episode No OBEpisode recorded.
--- OUTSIDE RECORDS SUMMARY | 2024-07-18 14:32 | XMS_ITS | Encounter Summary ---
Author Organization [facility] Address [address] [place] [address] Care Team Providers Care Director Of Occupational Therapy Name Role Phone Unavailable Primary Care Provider Unavailabl e Encounter Details Date Type Department Care Team (Late st Contact Info) Description 01/09/2004 Outpatient Historical [facility] Pediatrics [address] [place] [address] Murtaza Mcnulty MD [address] [place] [address] Social History Tobacco Use Types Packs/Day Years Used Date Smoking Tobacco: Never Assessed Comments Unknown Sex and Gender Information Value Date Recorded Sex Assigned at Not on file Legal 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
--- OUTSIDE RECORDS SUMMARY | 2024-07-18 14:32 | XMS_ITS | Encounter Summary ---
Author Organization [facility] Address 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
--- OUTSIDE RECORDS SUMMARY | 2024-07-18 14:32 | XMS_ITS | Encounter Summary ---
Author Organization [facility] Address [address] [place] [address] Care Team Providers Care Director Of Occupational Health Name Role Phone Unavailable Primary Care Provider Unavailabl e Encounter Details Date Type Department Care Team (Late st Contact Info) Description 06/06/2001 Outpatient Historical [facility] Pediatrics [place] [address] [place] [address] Kashmir Gunn MD [address] [facility] [address] [place] [address] Social History Tobacco Use Types Packs/Day Years Used Date Smoking Tobacco: Never Assessed Comments Unknown Sex and Gender Information Value Date Recorded Sex Assigned at Not on file 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
--- OUTSIDE RECORDS SUMMARY | 2024-07-18 14:32 | XMS_ITS | Encounter Summary ---
Author Organization [facility] Address 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
--- OUTSIDE RECORDS SUMMARY | 2024-07-18 14:32 | XMS_ITS | Encounter Summary ---
Author Organization [facility] Address [address] [place] [address] Care Team Providers Care Leather Heel Breaster Name Role Phone Unavailable Primary Care Provider Unavailabl e Encounter Details Date Type Department Care Team (Late st Contact Info) Description 05/28/1998 Outpatient Historical [facility] Pediatrics [place] [address] [place] [address] Moises Guerrero Social History Tobacco Use Types Packs/Day Years Used Date Smoking Tobacco: Never Assessed Comments Unknown Sex and Gender Information Value Date Recorded Sex Assigned at Not on file Legal Sex Female 2:44 AM GOVERNMENT AFFAIRS RESEARCHER Gender Identity Not on file Sexual Orientation Not on file documented as of this encounter Plan of Treatment Not on file documented as of this encounter Visit Diagnoses Not on filedocumented in this encounter
--- OUTSIDE RECORDS SUMMARY | 2024-07-18 14:32 | XMS_ITS | Encounter Summary ---
Author Organization [facility] Address [address] [place] [address] Care Team Providers Care Assistant Press Operator Offset Name Role Phone Unavailable Primary Care Provider Unavailabl e Encounter Details Date Type Department Care Team (Late st Contact Info) Description 01/06/1999 Outpatient Historical [facility] Pediatrics [place] [address] [place] [address] Moises Guerrero Social History Tobacco Use Types Packs/Day Years Used Date Smoking Tobacco: Never Assessed Comments Unknown Sex and Gender Information Value Date Recorded Sex Assigned at Not on file Legal Sex Female 2:44 AM RIB CLOTH KNITTER Gender Identity Not on file Sexual Orientation Not on file documented as of this encounter Plan of Treatment Not on file documented as of this encounter Visit Diagnoses Not on filedocumented in this encounter
--- OUTSIDE RECORDS SUMMARY | 2024-07-18 14:32 | XMS_ITS | Encounter Summary ---
Author Organization [facility] Address [address] [place] [address] Care Team Providers Care Six Sigma Black Trainer Name Role Phone Unavailable Primary Care Provider Unavailabl e Encounter Details Date Type Department Care Team (Late st Contact Info) Description 11/15/2003 Outpatient Historical [facility] Pediatrics [place] [address] [facility] [address] [place] [address] Kashmir Gunn MD [address] [facility] [address] [place] [address] Social History Tobacco Use Types Packs/Day Years Used Date Smoking Tobacco: Never Assessed Comments Unknown Sex and Gender Information Value Date Recorded Sex Assigned at Not on file Legal Sex Female 2:44 AM GINNING OPERATOR Gender Identity Not on file Sexual Orientation Not on file documented as of this encounter Plan of Treatment Not on file documented as of this encounter Procedures Procedure Name Priority Date/Time Associated Diagnosis Comments CHG POLIOVIRUS IPV [facility] 4 12:00 AM CDT CHG MMR VACCINE SQ [facility] 4 12:00 AM CDT CHG DTAP VACCINE <7 YO IM [facility] 11/15/2003 12:00 AM CDT documented in this encounter Visit Diagnoses Not on filedocumented in this encounter
--- OUTSIDE RECORDS SUMMARY | 2024-07-18 14:32 | XMS_ITS | Encounter Summary ---
Author Organization [facility] Address [address] [place] [address] Care Team Providers Care Bench Hand Name Role Phone Unavailable Primary Care Provider Unavailabl e Encounter Details Date Type Department Care Team (Late st Contact Info) Description 02/13/2003 Outpatient Historical [facility] Pediatrics [address] [place] [address] Murtaza Mcnulty MD [address] [place] [address] Social History Tobacco Use Types Packs/Day Years Used Date Smoking Tobacco: Never Assessed Comments Unknown Sex and Gender Information Value Date Recorded Sex Assigned at Not on file Legal Sex Female 2:44 AM TIRE 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
--- OUTSIDE RECORDS SUMMARY | 2024-07-18 14:32 | XMS_ITS | Encounter Summary ---
Author Organization [facility] Address [address] [place] [address] Care Team Providers Care Dog Food Shredder Operator Name Role Phone Unavailable Primary Care Provider Unavailabl e Encounter Details Date Type Department Care Team (Late st Contact Info) Description 06/04/2003 Outpatient Historical [facility] Pediatrics [address] [place] [address] Murtaza Mcnulty MD [address] [place] [address] Social History Tobacco Use Types Packs/Day Years Used Date Smoking Tobacco: Never Assessed Comments Unknown Sex and Gender Information Value Date Recorded Sex Assigned at Not on file Legal Sex Female 2:44 AM EKG MONITOR TECH Gender Identity Not on file Sexual Orientation Not on file documented as of this encounter Plan of Treatment Not on file documented as of this encounter Visit Diagnoses Not on filedocumented in this encounter
--- OUTSIDE RECORDS SUMMARY | 2024-07-18 14:32 | XMS_ITS | Encounter Summary ---
Author Organization [facility] Address [address] [place] [address] Care Team Providers Care Revenue Officer Name Role Phone Unavailable Primary Care Provider Unavailabl e Encounter Details Date Type Department Care Team (Late st Contact Info) Description 04/09/1998 Outpatient Historical [facility] Pediatrics [place] [address] [place] [address] Moises Guerrero Social History Tobacco Use Types Packs/Day Years Used Date Smoking Tobacco: Never Assessed Comments Unknown Sex and Gender Information Value Date Recorded Sex Assigned at Not on file Legal Sex Female 2:44 AM PLASTERER APPRENTICE Gender Identity Not on file Sexual Orientation Not on file documented as of this encounter Plan of Treatment Not on file documented as of this encounter Visit Diagnoses Not on filedocumented in this encounter
[2024-07-18 15:09] LABS: Hematocrit 36.3 % (37.0-47.0); Hemoglobin 12.5 g/dL (12.0-15.0); Immature Granulocyte Percent A 2.1 % (0-0.5); Lymphocytes Absolute Auto 2.86 K/mm3 (0.9-3.2); Mean Corpuscular HGB Conc 34.4 g/dl (32-36); Mean Corpuscular Hemoglobin 30.4 pg (26-34); Mean Corpuscular Volume 88.3 fl (80-100); Nucleated Red Blood Cells Absolute Auto 0.000 K/mm3 (0.0-0.012); Nucleated Red Blood Cells Perc 0.0 % (0.0-0.2); Platelet Count Result 294 k/mm3 (150-375); Red Blood Count 4.11 M/mm3 (4.2-5.4); White Blood Count 15.5 K/mm3 (4.5-10.0)
[2024-07-18 15:52] LABS: Syphilis IgG/IgM Antibody Negative (Negative)
[2024-07-18 15:56] LABS: Hepatitis B Surface Antigen Negative (Negative)
[2024-07-18 16:06] LABS: HIV 1/2 Ab P24 Ag Result Negative (Negative)
[2024-07-18 16:27] LABS: Ferritin 14.10 ng/mL (6.24-137)
[2024-07-18 16:33] LABS: Free T4 Free Thyroxine 1.09 ng/dL (0.78-2.19)
[2024-07-18 17:00] LABS: Hemoglobin A1C 5.1 % (<5.7)
[2024-07-18 17:04] LABS: Thyroid Stimulating Hormone 1.950 uIU/mL (0.465-4.680)
== END 2024-10-16 23:59 | disposition home or self-care (01) ==
LOC: ANHLAB 14:26
PROVIDERS: Visit Provider Nurse Practitioner
DX: Z11.4 Encounter for screening for human immunodeficiency virus [HIV] (principal); Z11.3 Encounter for screening for infections with a predominantly sexual mode of transmission
CPT/HCPCS: 36415; 82306; 82728; 83036; 84439; 84443; 85025; 86593; 86703; 86762; 86803; 86850; 86900; 86901; 87340; G0432

== ENCOUNTER 2024-08-10 14:38 | Emergency (ER) | payer OTHER, SELFPAY ==
[2024-08-10 14:41] VITALS: BP 128/83; PULSE 100; RESP 22; TEMP 36.6; O2SAT 99
--- OUTSIDE RECORDS SUMMARY | 2024-08-10 15:15 | XMS_ITS | Clinical Summary ---
Author Organization [facility] Address [address] [place] [address] Phone Care Team Providers Care Sap Portal Consultant Name Role Phone Varun Chavez MD [...] making a change Department associated with goal: [facility] Steps to achieve [...] track(2021 2:25 PM CDT) Yes Sandra Rich, [facility] Insurance MEDICAID [employer] Care Teams Sap Portal Consultant Relationship Specialty Start Date End Date Varun Chavez MD [address] [place] [address] PCP - General Internal Medicine 11/13/21
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
--- OUTSIDE RECORDS SUMMARY | 2024-08-10 15:15 | XMS_ITS | Encounter Summary ---
Author Organization [facility] Address [address] [place] [address] Care Team Providers Care Tube Man Name Role Phone Unavailable Primary Care Provider Unavailabl e Encounter Details Date Type Department Care Team (Late st Contact Info) Description 08/23/1998 Outpatient Historical [facility] Pediatrics [place] [address] [place] [address] Moises Guerrero Social History Tobacco Use Types Packs/Day Years Used Date Smoking Tobacco: Never Assessed Comments Unknown Sex and Gender Information Value Date Recorded Sex Assigned at Not on file Legal Sex Female 2:44 AM APPRENTICE PAINTER BRUSH Gender Identity Not on file Sexual Orientation Not on file documented as of this encounter Plan of Treatment Not on file documented as of this encounter Visit Diagnoses Not on filedocumented in this encounter
--- OUTSIDE RECORDS SUMMARY | 2024-08-10 15:15 | XMS_ITS | Clinical Summary ---
Author Organization [facility] Address [address] [place] [address] Phone Care Team Providers Care Sewer Digger Name Role Phone Unavailable Primary Care Provider [...] on file Legal Sex Female 2:44 AM STRATEGIC PLANNER Gender Identity Not on file Sexual Orientation Not on file Occupation Industry Job Start Date Job End Date Not on file Not on file Not on file Not on file Last Filed Vital Signs Vital Sign Reading Time Taken Comments Blood Pressure 110/80 01/28/2016 11:54 AM STRATEGIC PLANNER Pulse 101 01/28/2016 11:54 AM STRATEGIC PLANNER Temperature 37.1 C (98.7 F) 01/28/2016 11:54 AM STRATEGIC PLANNER Respiratory Rate 18 01/28/2016 11:54 AM STRATEGIC PLANNER Oxygen Saturation 97% 01/28/2016 11:54 AM STRATEGIC PLANNER Inhaled Oxygen Concentration - - Weight 61.7 kg (136 lb) 01/28/2016 11:54 AM STRATEGIC PLANNER Height 160 cm (5' 3) 01/28/2016 11:54 AM STRATEGIC PLANNER Body Mass Index 24.09 01/28/2016 11:54 AM STRATEGIC PLANNER Plan of Treatment Health Maintenance Due Date Last Done Comments HPV VACCINES (1 - 3-dose series) 2012 DTAP/TDAP/TD VACCINES (1 - Tdap) 2016 HEPATITIS B VACCINES (1 of 3 - 19+ 3-dose series) 10/31 CERVICAL CANCER SCREENING 2018 HPV/Cotest (21-29) 2018 PAP SMEAR 2018 INFLUENZA VACCINE (#1) 2023
--- OUTSIDE RECORDS SUMMARY | 2024-08-10 15:15 | XMS_ITS | Encounter Summary ---
Author Organization [facility] Address [address] [place] [address] Care Team Providers Care Furniture Upholsterer Apprentice Name Role Phone Unavailable Primary Care Provider Unavailabl e Encounter Details Date Type Department Care Team (Late st Contact Info) Description 03/26/2000 Outpatient Historical [facility] Pediatrics [place] [address] [facility] [address] [place] [address] Kashmir Gunn MD [address] [facility] [address] [place] [address] Social History Tobacco Use Types Packs/Day Years Used Date Smoking Tobacco: Never Assessed Comments Unknown Sex and Gender Information Value Date Recorded Sex Assigned at Not on file Legal Sex Female 2:44 AM RN LIAISON Gender Identity Not on file Sexual Orientation Not on file documented as of this encounter Plan of Treatment Not on file documented as of this encounter Visit Diagnoses Not on filedocumented in this encounter
--- OUTSIDE RECORDS SUMMARY | 2024-08-10 15:15 | XMS_ITS | Encounter Summary ---
Author Organization [facility] Address [address] [place] [address] Care Team Providers Care Mission Manager Name Role Phone Unavailable Primary Care Provider Unavailabl e Encounter Details Date Type Department Care Team (Late st Contact Info) Description 02/05/2000 Outpatient Historical [facility] Pediatrics [place] [address] [facility] [address] [place] [address] Kashmir Gunn MD [address] [facility] [address] [place] [address] Social History Tobacco Use Types Packs/Day Years Used Date Smoking Tobacco: Never Assessed Comments Unknown Sex and Gender Information Value Date Recorded Sex Assigned at Not on file Legal Sex Female 2:44 AM PUMP SERVICER SUPERVISOR Gender Identity Not on file Sexual Orientation Not on file documented as of this encounter Plan of Treatment Not on file documented as of this encounter Visit Diagnoses Not on filedocumented in this encounter
--- OUTSIDE RECORDS SUMMARY | 2024-08-10 15:15 | XMS_ITS | Encounter Summary ---
Author Organization [facility] Address [address] [place] [address] Care Team Providers Care Admin Asst Name Role Phone Unavailable Primary Care Provider Unavailabl e Encounter Details Date Type Department Care Team (Late st Contact Info) Description 06/01/2000 Outpatient Historical [facility] Pediatrics [place] [address] [facility] [address] [place] [address] Kashmir Gunn MD [address] [facility] [address] [place] [address] Social History Tobacco Use Types Packs/Day Years Used Date Smoking Tobacco: Never Assessed Comments Unknown Sex and Gender Information Value Date Recorded Sex Assigned at Not on file Legal Sex Female 2:44 AM ZIPPER SETTER LOCKSTITCH Gender Identity Not on file Sexual Orientation Not on file documented as of this encounter Plan of Treatment Not on file documented as of this encounter Visit Diagnoses Not on filedocumented in this encounter
--- OUTSIDE RECORDS SUMMARY | 2024-08-10 15:15 | XMS_ITS | Encounter Summary ---
Author Organization [facility] Address [address] [place] [address] Care Team Providers Care Cherry Sorter Name Role Phone Unavailable Primary Care Provider Unavailabl e Encounter Details Date Type Department Care Team (Late st Contact Info) Description 09/21/2000 Outpatient Historical [facility] Pediatrics [place] [address] [facility] [address] [place] [address] Edgar Morton MD [address] [facility] [address] [place] [address] Social History Tobacco Use Types Packs/Day Years Used Date Smoking Tobacco: Never Assessed Comments Unknown Sex and Gender Information Value Date Recorded Sex Assigned at Not on file Legal Sex Female 2:44 AM BLADE BENDER FURNACE TENDER Gender Identity Not on file Sexual Orientation Not on file documented as of this encounter Plan of Treatment Not on file documented as of this encounter Visit Diagnoses Not on filedocumented in this encounter
--- OUTSIDE RECORDS SUMMARY | 2024-08-10 15:15 | XMS_ITS | Encounter Summary ---
Author Organization [facility] Address [address] [place] [address] Care Team Providers Care Senior Technical Project Manager Name Role Phone Unavailable Primary Care Provider Unavailabl e Encounter Details Date Type Department Care Team (Late st Contact Info) Description 08/11/1999 Outpatient Historical [facility] Pediatrics [place] [address] [place] [address] Moises Guerrero Social History Tobacco Use Types Packs/Day Years Used Date Smoking Tobacco: Never Assessed Comments Unknown Sex and Gender Information Value Date Recorded Sex Assigned at Not on file Legal Sex Female 2:44 AM BOAT CARPENTER 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
--- OUTSIDE RECORDS SUMMARY | 2024-08-10 15:15 | XMS_ITS | Encounter Summary ---
Author Organization [facility] Address [address] [place] [address] Care Team Providers Care Packing Floor Worker Name Role Phone Unavailable Primary Care Provider Unavailabl e Encounter Details Date Type Department Care Team (Late st Contact Info) Description 05/29/1999 Outpatient Historical [facility] Pediatrics [place] [address] [place] [address] Moises Guerrero Social History Tobacco Use Types Packs/Day Years Used Date Smoking Tobacco: Never Assessed Comments Unknown Sex and Gender Information Value Date Recorded Sex Assigned at Not on file Legal Sex Female 2:44 AM GRINDER HAND Gender Identity Not on file Sexual Orientation Not on file documented as of this encounter Plan of Treatment Not on file documented as of this encounter Visit Diagnoses Not on filedocumented in this encounter
--- OUTSIDE RECORDS SUMMARY | 2024-08-10 15:15 | XMS_ITS | Encounter Summary ---
Author Organization [facility] Address [address] [place] [address] Care Team Providers Care Final Inspection Supervisor Name Role Phone Unavailable Primary Care Provider Unavailabl e Encounter Details Date Type Department Care Team (Late st Contact Info) Description 06/12/1999 Outpatient Historical [facility] Pediatrics [place] [address] [place] [address] Moises Guerrero Social History Tobacco Use Types Packs/Day Years Used Date Smoking Tobacco: Never Assessed Comments Unknown Sex and Gender Information Value Date Recorded Sex Assigned at Not on file Legal Sex Female 2:44 AM BANKING SERVICES ADVISOR Gender Identity Not on file Sexual Orientation Not on file documented as of this encounter Plan of Treatment Not on file documented as of this encounter Visit Diagnoses Not on filedocumented in this encounter
--- OUTSIDE RECORDS SUMMARY | 2024-08-10 15:15 | XMS_ITS | Encounter Summary ---
Author Organization [facility] Address [address] [place] [address] Care Team Providers Care Technical Solutions Engineer Name Role Phone Unavailable Primary Care Provider Unavailabl e Encounter Details Date Type Department Care Team (Late st Contact Info) Description 04/03/2000 Outpatient Historical [facility] Pediatrics [place] [address] [facility] [address] [place] [address] Luis Conklin MD [address] [place] [address] Social History Tobacco Use Types Packs/Day Years Used Date Smoking Tobacco: Never Assessed Comments Unknown Sex and Gender Information Value Date Recorded Sex Assigned at Not on file Legal Sex Female 2:44 AM SENIOR DIRECTOR MARKETING Gender Identity Not on file Sexual Orientation Not on file documented as of this encounter Plan of Treatment Not on file documented as of this encounter Visit Diagnoses Not on filedocumented in this encounter
--- OUTSIDE RECORDS SUMMARY | 2024-08-10 15:15 | XMS_ITS | Encounter Summary ---
Author Organization [facility] Address [address] [place] [address] Care Team Providers Care Medicine And Health Service Manager Name Role Phone Unavailable Primary Care Provider Unavailabl e Encounter Details Date Type Department Care Team (Late st Contact Info) Description 07/25/1999 Outpatient Historical [facility] Pediatrics [place] [address] [place] [address] Moises Guerrero Social History Tobacco Use Types Packs/Day Years Used Date Smoking Tobacco: Never Assessed Comments Unknown Sex and Gender Information Value Date Recorded Sex Assigned at Not on file Legal Sex Female 2:44 AM INSPECTOR SCREEN PRINTING Gender Identity Not on file Sexual Orientation Not on file documented as of this encounter Plan of Treatment Not on file documented as of this encounter Visit Diagnoses Not on filedocumented in this encounter
--- OUTSIDE RECORDS SUMMARY | 2024-08-10 15:15 | XMS_ITS | Encounter Summary ---
Author Organization [facility] Address [address] [place] [address] Care Team Providers Care Turkey Boner Name Role Phone Unavailable Primary Care Provider Unavailabl e Encounter Details Date Type Department Care Team (Late st Contact Info) Description 09/06/1998 Outpatient Historical [facility] Pediatrics [place] [address] [place] [address] Moises Guerrero Social History Tobacco Use Types Packs/Day Years Used Date Smoking Tobacco: Never Assessed Comments Unknown Sex and Gender Information Value Date Recorded Sex Assigned at Not on file Legal Sex Female 2:44 AM POOL TABLE 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
--- OUTSIDE RECORDS SUMMARY | 2024-08-10 15:15 | XMS_ITS | Encounter Summary ---
Author Organization [facility] Address [address] [place] [address] Care Team Providers Care Can Dryer Name Role Phone Unavailable Primary Care Provider Unavailabl e Encounter Details Date Type Department Care Team (Late st Contact Info) Description 08/15/1999 Outpatient Historical [facility] Pediatrics [place] [address] [place] [address] Moises Guerrero Social History Tobacco Use Types Packs/Day Years Used Date Smoking Tobacco: Never Assessed Comments Unknown Sex and Gender Information Value Date Recorded Sex Assigned at Not on file Legal Sex Female 2:44 AM CORONER TECHNICIAN Gender Identity Not on file Sexual Orientation Not on file documented as of this encounter Plan of Treatment Not on file documented as of this encounter Visit Diagnoses Not on filedocumented in this encounter
--- OUTSIDE RECORDS SUMMARY | 2024-08-10 15:15 | XMS_ITS | Encounter Summary ---
Author Organization [facility] Address [address] [place] [address] Care Team Providers Care Sales Professional Bilingual Name Role Phone Unavailable Primary Care Provider Unavailabl e Encounter Details Date Type Department Care Team (Late st Contact Info) Description 01/05/2000 Outpatient Historical [facility] Pediatrics [place] [address] [facility] [address] [place] [address] Kashmir Gunn MD [address] [facility] [address] [place] [address] Social History Tobacco Use Types Packs/Day Years Used Date Smoking Tobacco: Never Assessed Comments Unknown Sex and Gender Information Value Date Recorded Sex Assigned at Not on file Legal Sex Female 2:44 AM REHABILITATION TEAM LEAD Gender Identity Not on file Sexual Orientation Not on file documented as of this encounter Plan of Treatment Not on file documented as of this encounter Visit Diagnoses Not on filedocumented in this encounter
--- OUTSIDE RECORDS SUMMARY | 2024-08-10 15:15 | XMS_ITS | Encounter Summary ---
Author Organization [facility] Address [address] [place] [address] Care Team Providers Care Business Agent Name Role Phone Unavailable Primary Care Provider Unavailabl e Encounter Details Date Type Department Care Team (Late st Contact Info) Description 08/23/1998 Outpatient Historical [facility] [place] [address] [place] [address] Moises Guerrero Social History Tobacco Use Types Packs/Day Years Used Date Smoking Tobacco: Never Assessed Comments Unknown Sex and Gender Information Value Date Recorded Sex Assigned at Not on file Legal Sex Female 2:44 AM YOUTH COUNSELOR Gender Identity Not on file Sexual Orientation Not on file documented as of this encounter Plan of Treatment Not on file documented as of this encounter Visit Diagnoses Not on filedocumented in this encounter
--- OUTSIDE RECORDS SUMMARY | 2024-08-10 15:16 | XMS_ITS | Encounter Summary ---
Author Organization [facility] Address [address] [place] [address] Care Team Providers Care Bioinformatics Scientist Name Role Phone Unavailable Primary Care Provider Unavailabl e Encounter Details Date Type Department Care Team (Late st Contact Info) Description 11/04/2004 Outpatient Historical [facility] Pediatrics [address] [place] [address] Murtaza Mcnulty MD [address] [place] [address] Social History Tobacco Use Types Packs/Day Years Used Date Smoking Tobacco: Never Assessed Comments Unknown Sex and Gender Information Value Date Recorded Sex Assigned at Not on file Legal Sex Female 2:44 AM DIRECTOR OF CLINICAL SERVICES Gender Identity Not on file Sexual Orientation Not on file documented as of this encounter Plan of Treatment Not on file documented as of this encounter Visit Diagnoses Not on filedocumented in this encounter
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
--- OUTSIDE RECORDS SUMMARY | 2024-08-10 15:16 | XMS_ITS | Encounter Summary ---
Author Organization [facility] Address [address] [place] [address] Care Team Providers Care Lath Tier Name Role Phone Unavailable Primary Care Provider Unavailabl e Encounter Details Date Type Department Care Team (Late st Contact Info) Description 02/12/2004 Outpatient Historical [facility] Pediatrics [address] [place] [address] Murtaza Mcnulty MD [address] [place] [address] Social History Tobacco Use Types Packs/Day Years Used Date Smoking Tobacco: Never Assessed Comments Unknown Sex and Gender Information Value Date Recorded Sex Assigned at Not on file Legal Sex Female 2:44 AM BEEF GRINDER Gender Identity Not on file Sexual Orientation Not on file documented as of this encounter Plan of Treatment Not on file documented as of this encounter Visit Diagnoses Not on filedocumented in this encounter
--- OUTSIDE RECORDS SUMMARY | 2024-08-10 15:16 | XMS_ITS | Encounter Summary ---
Author Organization [facility] Address [address] [place] [address] Care Team Providers Care Woven Label Designer Name Role Phone Unavailable Primary Care Provider Unavailabl e Encounter Details Date Type Department Care Team (Late st Contact Info) Description 06/06/2001 Outpatient Historical [facility] Pediatric[facility] [place] [address] [facility] [address] [place] [address] Kashmir Gunn MD [address] [facility] [address] [place] [address] Social History Tobacco Use Types Packs/Day Years Used Date Smoking Tobacco: Never Assessed Comments Unknown Sex and Gender Information Value Date Recorded Sex Assigned at Not on file Legal Sex Female 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
--- OUTSIDE RECORDS SUMMARY | 2024-08-10 15:16 | XMS_ITS | Encounter Summary ---
Author Organization [facility] Address 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
--- OUTSIDE RECORDS SUMMARY | 2024-08-10 15:16 | XMS_ITS | Encounter Summary ---
Author Organization [facility] Address 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
--- OUTSIDE RECORDS SUMMARY | 2024-08-10 15:16 | XMS_ITS | Encounter Summary ---
Author Organization [facility] Address [address] [place] [address] Care Team Providers Care Streetcar Repairer Name Role Phone Unavailable Primary Care Provider Unavailabl e Encounter Details Date Type Department Care Team (Late st Contact Info) Description 08/25/2001 Outpatient Historical [facility] Pediatric[place] [address] [facility] [address] [place] [address] Kashmir Gunn MD [address] [place] [address] Social History Tobacco Use Types Packs/Day Years Used Date Smoking Tobacco: Never Assessed Comments Unknown Sex and Gender Information Value Date Recorded Sex Assigned at Not on file Legal Sex Female 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
--- OUTSIDE RECORDS SUMMARY | 2024-08-10 15:16 | XMS_ITS | Encounter Summary ---
Author Organization [facility] Address [address] [place] [address] Care Team Providers Care Cupola Patcher Name Role Phone Unavailable Primary Care Provider Unavailabl e Encounter Details Date Type Department Care Team (Late st Contact Info) Description 04/29/[address] 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
--- OUTSIDE RECORDS SUMMARY | 2024-08-10 15:16 | XMS_ITS | Encounter Summary ---
Author Organization [facility] Address [address] [place] [address] Care Team Providers Care Slate Picker Name Role Phone Unavailable Primary Care Provider Unavailabl e Encounter Details Date Type Department Care Team (Late st Contact Info) Description 11/28/1998 Outpatient Historical [facility] Pediatrics [place] [address] [place] [address] Moises Guerrero Social History Tobacco Use Types Packs/Day Years Used Date Smoking Tobacco: Never Assessed Comments Unknown Sex and Gender Information Value Date Recorded Sex Assigned at Not on file Legal Sex Female 2:44 AM SURGICAL CORSETIER Gender Identity Not on file Sexual Orientation Not on file documented as of this encounter Plan of Treatment Not on file documented as of this encounter Visit Diagnoses Not on filedocumented in this encounter
--- OUTSIDE RECORDS SUMMARY | 2024-08-10 15:16 | XMS_ITS | Encounter Summary ---
Author Organization [facility] Address 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
--- OUTSIDE RECORDS SUMMARY | 2024-08-10 15:16 | XMS_ITS | Encounter Summary ---
Author Organization [facility] Address [address] [place] [address] Care Team Providers Care Survey Questionnaire Designer Name Role Phone Unavailable Primary Care Provider Unavailabl e Encounter Details Date Type Department Care Team (Late st Contact Info) Description 03/05/2001 Outpatient Historical [facility] Pediatrics [place] [address] [facility] [address] [place] [address] Luis Conklin MD [address] [place] [address] Social History Tobacco Use Types Packs/Day Years Used Date Smoking Tobacco: Never Assessed Comments Unknown Sex and Gender Information Value Date Recorded Sex Assigned at Not on file Legal Sex Female 2:44 AM ROAST MASTER Gender Identity Not on file Sexual Orientation Not on file documented as of this encounter Plan of Treatment Not on file documented as of this encounter Visit Diagnoses Not on filedocumented in this encounter
--- OUTSIDE RECORDS SUMMARY | 2024-08-10 15:16 | XMS_ITS | Encounter Summary ---
Author Organization [facility] Address [address] [place] [address] Care Team Providers Care Front Counter Attendant Name Role Phone Unavailable Primary Care Provider Unavailabl e Encounter Details Date Type Department Care Team (Late st Contact Info) Description 07/09/2004 Outpatient Historical [facility] Pediatrics [address] [place] [address] Murtaza Mcnulty MD [address] [place] [address] Social History Tobacco Use Types Packs/Day Years Used Date Smoking Tobacco: Never Assessed Comments Unknown Sex and Gender Information Value Date Recorded Sex Assigned at Not on file Legal Sex Female 2:44 AM CODE ENFORCEMENT SUPERVISOR Gender Identity Not on file Sexual Orientation Not on file documented as of this encounter Plan of Treatment Not on file documented as of this encounter Visit Diagnoses Not on filedocumented in this encounter
--- OUTSIDE RECORDS SUMMARY | 2024-08-10 15:16 | XMS_ITS | Encounter Summary ---
Author Organization [facility] Address [address] [place] [address] Care Team Providers Care Firestopper Installer Name Role Phone Unavailable Primary Care Provider Unavailabl e Encounter Details Date Type Department Care Team (Late st Contact Info) Description 03/22/2002 Outpatient Historical [facility] Pediatrics [address] [place] [address] Murtaza Mcnulty MD [address] [place] [address] Social History Tobacco Use Types Packs/Day Years Used Date Smoking Tobacco: Never Assessed Comments Unknown Sex and Gender Information Value Date Recorded Sex Assigned at Not on file Legal Sex Female 2:44 AM TRANSFORMATION LEAD Gender Identity Not on file Sexual Orientation Not on file documented as of this encounter Plan of Treatment Not on file documented as of this encounter Visit Diagnoses Not on filedocumented in this encounter
--- OUTSIDE RECORDS SUMMARY | 2024-08-10 15:16 | XMS_ITS | Data Portability ---
Author Organization [facility], Main Office Address [address] [place] [address] Assessment No assessment recorded. Plan of Treatment [...] 2016, 41(Shaw ppl.1 ):s13 -s22 Not Available [facility] (Lab) [address] [place], [address], 08/02/2020 21:21:32 08/03/1908/02/2020 TSH + free T4, serum thyroid-stim ulating hormone 1.870 uIU/m L 0.465- 4.680 Not Available [facility] (Lab) [address] [place], [address], 08/02/2020 18:47:19 08/03/1908/02/2020 T4, free, serum free T4 0.94 NG/dL 0.78-2 .19 Not Available [facility] (Lab) [address] [place], [address], 08/02/2020 18:13:37 08/03/19 21 08/02/2020 pregn elio [...] 19 6,800 TO 42,90 0 Not Available [facility] (Lab) [address] [place], [address], 08/02/2020 18:13:32 08/03/19 21 08/02/2020 vitam in D, 25-hy droxy , total , serum vd25oh 46.6 NG/mL 30-100 Vitam in D Statu s: Defic ient: <20 ng/mL Insuf ficie nt: 20-29 ng/mL Suffi cient : 30-10 0 ng/mL Not Available [facility] (Lab) [address] [place], [address], 08/02/2020 18:12:47 08/03/19 21 08/02/2020 lipid panel , serum cholesterol 127 mg/dL 140-19 9 low NIH JASON NSUS RECOM MENDA TION FOR GLENIS STERO L: ADULT CHILD LOW RISK: <200 <170 BORDE RLINE : <200- 239 ----- HIGH RISK: >240 >200 Not Available [facility] (Lab) [address] [place], [address], 08/02/2020 17:46:51 08/03/19 21 08/02/2020 lipid panel , serum triglyceride s 62 mg/dL 0-150 NIH JASON NSUS REPOR T RECOM MENDA TION FOR TRIGL YCERI RENA: ADULT CHILD LOW RISK: <150 ----- BODER LINE: 150-1 99 ----- HIGH RISK: >200 ----- Not Available [facility] (Lab) [address] [place], [address], 08/02/2020 17:46:51 08/03/19 21 08/02/2020 lipid panel , serum HDL cholesterol 53 mg/dL 40- Not Available [facility] (Lab) [address] [place], [address], 08/02/2020 17:46:51 08/03/19 21 08/02/2020 lipid panel [...] WILL NOT BE REPOR KELI. Not Available [facility] (Lab) [address] [place], [address], 08/02/2020 17:46:51 08/03/1908/02/2020 CMP, serum or plasm a sodium 139 mmol/ L 137-14 5 Not Available [facility] (Lab) [address] [place], [address], 08/02/2020 17:46:43 08/03/19 21 08/02/2020 CMP, serum or plasm a potassium 4.3 mmol/ L 3.5-5. 1 Not Available [facility] (Lab) [address] [place], [address], 08/02/2020 17:46:43 08/03/19 21 08/02/2020 CMP, serum or plasm a chloride 104 mmol/ L 98-107 Not Available [facility] (Lab) [address] [place], [address], 08/02/2020 17:46:43 08/03/19 21 08/02/2020 CMP, serum or plasm a carbon dioxide 29 mmol/ L 22-30 Not Available [facility] (Lab) [address] [place], [address], 08/02/2020 17:46:43 08/03/19 21 08/02/2020 CMP, serum or plasm a agap 10.3 mmol/ L 14-22 low Not Available [facility] (Lab) [address] [place], [address], 08/02/2020 17:46:43 08/03/19 21 08/02/2020 CMP, serum or plasm a glucose 75 mg/dL 70-99 Not Available [facility] (Lab) [address] [place], [address], 08/02/2020 17:46:43 08/03/19 21 08/02/2020 CMP, serum or plasm a BUN 10 mg/dL 8-19 Not Available [facility] (Lab) [address] [place], [address], 08/02/2020 17:46:43 08/03/19 21 08/02/2020 CMP, serum or plasm a creatinine 0.70 mg/dL 0.66-1 .25 Not Available [facility] (Lab) [address] [place], [address], 08/02/2020 17:46:43 08/03/19 21 08/02/2020 CMP, serum or plasm a GFR >60 Refer ence Range : [place] ge GFR Healt hy Adult : >60 [...] lator can be locat ed on the [facility] websi te: [email or web address] :[email or web address] [email or web address] rg/pr ofess ional s/kdo qi/gf r_cal culat or Not Available [facility] (Lab) [address] [place], [address], 08/02/2020 17:46:43 08/03/1908/02/2020 CMP, serum or plasm a alkaline phosphatase 51 U/L 38-126 Not Available [facility] (Lab) [address] [place], [address], 08/02/2020 17:46:43 08/03/1908/02/2020 CMP, serum or plasm a alanine aminotransfe rase 12 U/L 0-35 Not Available [facility] (Lab) [address] [place], [address], 08/02/2020 17:46:43 08/03/19 21 08/02/2020 CMP, serum or plasm a aspartate aminotransfe rase 21 U/L 15-37 Not Available [facility] (Lab) [address] [place], [address], 08/02/2020 17:46:43 08/03/19 21 08/02/2020 CMP, serum or plasm a bilirubin, total 0.40 mg/dL 0.20-1 .30 Not Available [facility] (Lab) [address] [place], [address], 08/02/2020 17:46:43 08/03/19 21 08/02/2020 CMP, serum or plasm a calcium 9.7 mg/dL 8.4-10 .2 Not Available [facility] (Lab) [address] [place], [address], 08/02/2020 17:46:43 08/03/1908/02/2020 CMP, serum or plasm a total protein 7.3 g/dL 6.3-8. 2 Not Available [facility] (Lab) [address] [place], [address], 08/02/2020 17:46:43 08/03/1908/02/2020 CMP, serum or plasm a albumin 4.7 g/dL 3.4-5. 0 Not Available [facility] (Lab) [address] [place], [address], 08/02/2020 17:46:43 08/03/1908/02/2020 CMP, serum or plasm a globulin 2.6 g/dL 2.6-4. 2 Not Available [facility] (Lab) [address] [place], [address], 08/02/2020 17:46:43 08/03/1908/02/2020 CMP, serum or plasm a A/G ratio 1.8 ratio 1.0-2. 0 Not Available [facility] (Lab) [address] [place], [address], 08/02/2020 17:46:43 08/03/19 21 08/02/2020 urina lysis compl ete, refle x cultu re color light- yellow Not Available [facility] (Lab) [address] [place], [address], 08/02/2020 17:27:27 08/03/19 21 08/02/2020 urina lysis compl ete, refle x cultu re appear turbid abnormal Not Available [facility] (Lab) [address] [place], [address], 08/02/2020 17:27:27 08/03/19 21 08/02/2020 urina lysis compl ete, refle x cultu re specific gravity 1.021 1.001- 1.030 Not Available [facility] (Lab) [address] [place], [address], 08/02/2020 17:27:27 08/03/19 21 08/02/2020 urina lysis compl ete, refle x cultu re pH 7.5 pH_un its 5.0-9. 0 Not Available [facility] (Lab) [address] [place], [address], 08/02/2020 17:27:27 08/03/19 21 08/02/2020 urina lysis compl ete, refle x cultu re leukocytes negati ve carmencita/u L negati ve- Not Available [facility] (Lab) [address] [facility] [place], [address], 08/02/2020 17:27:27 08/03/19 21 08/02/2020 urina lysis compl ete, refle x cultu re nitrite negati ve negati ve- Not Available [facility] (Lab) [address] [place], [address], 08/02/2020 17:27:27 08/03/19 21 08/02/2020 urina lysis compl ete, refle x cultu re protein negati ve mg/dL negati ve- Not Available [facility] (Lab) [address] [place], [address], 08/02/2020 17:27:27 08/03/19 21 08/02/2020 urina lysis compl ete, refle x cultu re glucose normal mg/dL normal - Not Available [facility] (Lab) [address] [place], [address], 08/02/2020 17:27:27 08/03/19 21 08/02/2020 urina lysis compl ete, refle x cultu re ketones negati ve mg/dL negati ve- Not Available [facility] (Lab) [address] [place], [address], 08/02/2020 17:27:27 08/03/19 21 08/02/2020 urina lysis compl ete, refle x cultu re urobilinogen normal mg/dL normal - Not Available [facility] (Lab) [address] [place], [address], 08/02/2020 17:27:27 08/03/19 21 08/02/2020 urina lysis compl ete, refle x cultu re bilirubin negati ve mg/dL negati ve- Not Available [facility] (Lab) [address] [place], [address], 08/02/2020 17:27:27 08/03/19 21 08/02/2020 urina lysis compl ete, refle x cultu re blood negati ve mg/dL negati ve- Not Available [facility] (Lab) [address] [place], [address], 08/02/2020 17:27:27 06/0408/02/2020 urina lysis compl ete, refle x cultu re white blood cells 0-8 /i??h pfi?? 0-8 Not Available [facility] (Lab) [address] [place], [address], 08/02/2020 17:27:27 08/03/19 21 08/02/2020 urina lysis compl ete, refle x cultu re red blood cells 0-4 /i??h pfi?? 0-4 Not Available [facility] (Lab) [address] [place], [address], 08/02/2020 17:27:27 08/03/19 21 08/02/2020 urina lysis compl ete, refle x cultu re bacteria none Not Available [facility] (Lab) [address] [place], [address], 08/02/2020 17:27:27 08/03/19 21 08/02/2020 urina lysis compl ete, refle x cultu re squamous epithelial modera te /i??l pfi?? abnormal Not Available [facility] (Lab) [address] [place], [address], 08/02/2020 17:27:27 08/03/19 21 08/02/2020 urina lysis compl ete, refle x cultu re amorphous crystal occasi onal /i??h pfi?? abnormal Not Available [facility] (Lab) [address] [place], [address], 08/02/2020 17:27:27 08/03/19 21 08/02/2020 CBC w/ auto diff white blood cells 11.5 x10'3 /uL 4.2-10 .8 high Not Available [facility] (Lab) [address] [place], [address], 08/02/2020 16:48:23 08/03/19 21 08/02/2020 CBC w/ auto diff red blood cells 4.54 x10'6 /uL 3.80-5 .20 Not Available [facility] (Lab) [address] [place], [address], 08/02/2020 16:48:23 08/03/19 21 08/02/2020 CBC w/ auto diff hemoglobin 13.4 g/dL 12.0-1 5.6 Not Available [facility] (Lab) [address] [place], [address], 08/02/2020 16:48:23 08/03/19 21 08/02/2020 CBC w/ auto diff hematocrit 40.3 % 35.7-4 5.7 Not Available [facility] (Lab) [address] [place], [address], 08/02/2020 16:48:23 08/03/19 21 08/02/2020 CBC w/ auto diff mean red cell volume 88.8 fL 82.0-9 9.0 Not Available [facility] (Lab) [address] [place], [address], 08/02/2020 16:48:23 08/03/19 21 08/02/2020 CBC w/ auto diff mean red cell hemoglobin 29.5 pg 27.0-3 3.0 Not Available [facility] (Lab) [address] [place], [address], 08/02/2020 16:48:23 08/03/19 21 08/02/2020 CBC w/ auto diff mean RBC HGB concentratio n 33.3 g/dL 31.0-3 6.0 Not Available [facility] (Lab) [address] [place], [address], 08/02/2020 16:48:23 08/03/19 21 08/02/2020 CBC w/ auto diff red cell distribution width 13.2 % 11.8-1 5.5 Not Available [facility] (Lab) [address] [place], [address], 08/02/2020 16:48:23 08/03/19 21 08/02/2020 CBC w/ auto diff platelets 304 x10'3 /uL 150-40 0 Not Available [facility] (Lab) [address] [place], [address], 08/02/2020 16:48:23 08/03/19 21 08/02/2020 CBC w/ auto diff mean platelet volume 10.1 fL 9.0-12 .4 Not Available [facility] (Lab) [address] [place], [address], 08/02/2020 16:48:23 08/03/19 21 08/02/2020 CBC w/ auto diff neutrophils 66.5 % 39.0-7 2.0 Not Available [facility] (Lab) [address] [place], [address], 08/02/2020 16:48:23 08/03/19 21 08/02/2020 CBC w/ auto diff lymphocytes 18.2 % 16.0-4 7.0 Not Available [facility] (Lab) [address] [place], [address], 08/02/2020 16:48:23 08/03/19 21 08/02/2020 CBC w/ auto diff monocytes 8.9 % 5.0-12 .0 Not Available [facility] (Lab) [address] [place], [address], 08/02/2020 16:48:23 08/03/19 21 08/02/2020 CBC w/ auto diff eosinophils 4.8 % 1.0-7. 0 Not Available [facility] (Lab) [address] [place], [address], 08/02/2020 16:48:23 08/03/19 21 08/02/2020 CBC w/ auto diff basophils 0.8 % 0.0-2. 0 Not Available [facility] (Lab) [address] [place], [address], 08/02/2020 16:48:23 08/03/19 21 08/02/2020 CBC w/ auto diff immature granulocytes 0.8 % 0.00-0 .50 high Not Available [facility] (Lab) [address] [place], [address], 08/02/2020 16:48:23 08/03/19 21 08/02/2020 CBC w/ auto diff neutrophils, absolute count 7.66 x10'3 /uL 1.5-8. 0 Not Available [facility] (Lab) [address] [place], [address], 08/02/2020 16:48:23 08/03/19 21 08/02/2020 CBC w/ auto diff lymphocytes, absolute count 2.09 x10'3 /uL 1.07-3 .43 Not Available [facility] (Lab) [address] [place], [address], 08/02/2020 16:48:23 08/03/19 21 08/02/2020 CBC w/ auto diff monocytes, absolute count 1.03 x10'3 /uL 0.29-0 .99 high Not Available [facility] (Lab) [address] [place], [address], 08/02/2020 16:48:23 08/03/19 21 08/02/2020 CBC w/ auto diff eosinophils, absolute count 0.55 x10'3 /uL 0.02-0 .53 high Not Available [facility] (Lab) [address] [place], [address], 08/02/2020 16:48:23 08/03/19 21 08/02/2020 CBC w/ auto diff basophils, absolute count 0.09 x10'3 /uL 0.01-0 .08 high Not Available [facility] (Lab) [address] [place], [address], 08/02/2020 16:48:23 08/03/19 21 08/02/2020 CBC w/ auto diff immature granulocytes ,absolute 0.09 x10'3 /uL 0.00-0 .05 high Not Available [facility] (Lab) [address] [place], [address], 08/02/2020 16:48:23 08/03/19 21 08/02/2020 CBC w/ auto diff nucleated red blood cells 0.0 % -0 Not Available [facility] (Lab) [address] [place], [address], 08/02/2020 16:48:23 08/03/19 21 08/02/2020 CBC w/ auto diff NRBC# 0.00 x10'3 /uL Not Available [facility] (Lab) [address] [place], [address], 08/02/2020 16:48:23 08/27/19 21 08/27/2020 CT, NG, TRICH VAG BY LATISHA chlamydia by LATISHA negati ve negati ve Not Available [facility] ([facility]) [address] [place], [address], 08/28/2020 06:12:24 08/27/1908/27/2020 CT, NG, TRICH VAG BY LATISHA gonococcus by LATISHA negati ve negati ve Not Available [facility] ([facility]) [address] [place], [address], 08/28/2020 06:12:24 08/27/19 21 08/27/2020 CT, NG, TRICH VAG BY LATISHA trich vag by LATISHA negati ve negati ve Not Available [facility] ([facility]) [address] [place], [address], 08/28/2020 06:12:24 08/28/19 21 08/27/2020 pregn elio test, urine HCG negati ve Not Available [facility] [address], [place], [address], 08/26/2020 16:54:07 08/14/19 21 08/12/2020 US, pelvi s, trans abdom inal + [facility]in al [facility] [address], [place] [address] [employer] t Name: CHARIS ODONNELL Access ion #: [id number] Sex: F : 1995 0 Locati [...] the pelvis . Page 1 of 2 [facility] Jordan velez Name: CHARIS ODONNELL Access ion #: [id number] Sex: F : 1995 0 Exam [...] 7:23 AM (CT) Page 2 of 2 [id number] [facility] (Imaging) [address] [place], [address], 04/29/2022 20:21:16 Result Notes None recorded. Problems Name Problem SNOMED Code Status Onset Date Resolution Date Notes Provider Name and Address Organization Details Recorded Time Depressive disorder 22612577 Active Not Available [facility] 3 20:20:07 Anxiety 24632459 Active 021 Not Available [facility] 3 20:20:07 Problem Notes None recorded. Procedures Surgical History Date Name Laterality Status Provider Name and Address Organization Details Recorded Time Sinus Surgery completed Not Available [facility] th 04/29/2022 20:19:31 Back Surgery completed Not Available [facility] h 04/29/2022 20:19:31 Remove tonsils and adenoids completed Not Available [facility] 04/29/2022 20:19:31 Imaging Results None recorded. Procedure Notes None recorded. Medical Equipment None Reported. Allergies Allergen ID Allergen Name Allergen Category Reaction Reaction Severity Criticality Documentation Date Start Date Code Code System Note Provider Name and Address Organization Details Recorded Time 35821 Substance with sulfonami de structure and antibacte rial mechanism of action (substanc e) medicatio n rash Not available Not available 04/29/2022 94461 8003 SNOMED Not Available [facility] 3 20:21:14 Medications Name Sig Start Date [...] Address Organization Details Last Updated DateTime 1 28.2 kg/m2 160.02 cm 100 % 100 % 92 /min 98.1 [degF] 97525.1 9 g 112 mm[Hg] 82 mm[Hg] Not Available [facility] 3 20:19:57 Date Recorded Body mass index (BMI) Body height Oxygen saturation Oxygen saturation in Arterial blood by Pulse oximetry Heart rate Body temperature Body weight Systolic blood pressure Diastolic blood pressure Provider Name and Address Organization Details Last Updated DateTime 1 28 kg/m2 160.02 cm 98 % 98 % 85 /min 98 [degF] 49990.5 9 g 116 mm[Hg] 80 mm[Hg] Not Available [facility] 3 20:19:57 Date Recorded Body mass index (BMI) Body height Body weight Systolic blood pressure Diastolic blood pressure Provider Name and Address Organization Details Last Updated DateTime 08/26/2020 27.8 kg/m2 160.02 cm 63421 g 120 mm[Hg] 80 mm[Hg] Not Available [facility] 3 20:19:57 Date Recorded Body mass index (BMI) Body height Body temperature Body weight Systolic blood pressure Diastolic blood pressure Provider Name and Address Organization Details Last Updated DateTime 28.3 kg/m2 160.02 cm 97.9 [degF] 58533.7 8 g 119 mm[Hg] 78 mm[Hg] Not Available [facility] 3 20:19:57 Social History Question Answer Notes LastModified by [employer] Details LastModified Time Tobacco Smoking Status Never Smoker Not Available [facility] 04/29/2022 20:19:29 What Is Your Level Of Caffeine Consumption? Moderate [id number] Information not available 04/29/2022 How Much Tobacco Do You Chew? None [id number].[id number] Information not available 04/29/2022 In The 14 Days Before Symptom Onset, Have You Had Close Contact With A Laboratory-confirm ed COVID-19 While That Case Was Ill? No [id number].[id number] Information not available 04/29/2022 In The 14 Days Before Symptom Onset, Have You Had Close Contact With A Person Who Is Under Investigation For COVID-19 While That Person Was Ill? No [id number].[id number] [id number] Information not available 04/29/2022 What Type Of Diet Are You Following? REGULAR MIGRATION.401443 8501 Information not available 04/29/2022 Which Illicit Or Recreational Drugs Have You Used? No MIGRATION.[id number] Information not available 04/29/2022 Are There Any Guns Present In Your Home? No MIGRATION.[id number] 9148 Information not available 04/29/2022 What Was The Date Of Your Most Recent Tobacco Screening? 08/09/2020 MIGRATION.[id number] 7458 Information not available 04/29/2022 Are You Passively Exposed To Smoke? Yes MIGRATION.175321 4662 Information not available 04/29/2022 How Much Tobacco Do You Smoke? No MIGRATION.847018 4330 Information not available 04/29/2022 Sex: Female Functional Status Question Answer Note LastModified by [employer] Details LastModified Time What is your level of alcohol consumption? None MIGRATION.14199 [id number] Information not available 04/29/2022 Do you or have you ever used smokeless tobacco? Never used smokeless tobacco MIGRATION.49297 80336 Information not available 04/29/2022 Do you or have you ever used e-cigarettes or vape? Current user of electronic cigarettes Vape occasionally MIGRATION.19179 67330 Information not available 04/29/2022 What is your exercise level? None MIGRATION.36695 95963 Information not available 04/29/2022 Mental Status None recorded. Family History Relationship Description Onset Age of this Age Resolved Age Notes LastModified by Organization Details LastModified Time Mother Diabetes mellitus [id number] [id number] Not available 04/29/2022 20:19:32 Mother Anxiety disorder MIGRATION.114 [id number] Not available 04/29/2022 20:19:32 Mother Depressive disorder MIGRATION.577 [id number] Not available 04/29/2022 20:19:32 Sister Anxiety disorder MIGRATION.310 [id number] Not available 04/29/2022 20:19:32 Sister Anxiety disorder MIGRATION.330 [id number] Not available 04/29/2022 20:19:32 Sister Depressive disorder MIGRATION.219 [id number] Not available 04/29/2022 20:19:33 Sister Depressive disorder MIGRATION.779 [id number] Not available 04/29/2022 20:19:33 Medical History Condition Response ECZEMA Y ANXIETY DISORDER Y SLEEP APNEA Y CHICKENPOX Y SKIN PROBLEMS Y BACK / NECK PROBLEMS Y DEPRESSION (INCLUDING POST ) Y HEARTBURN / REFLUX Y HAVE YOU BEEN HOSPITALIZED OR SEEN IN [facility] ER IN THE PAST YEAR ? Y Gynecological History Statement/Question Response Abnormal Pap [...] SNOMED-CT Code Diagnosis ICD10 Code Diagnosis Note [id number] Cristine kelly MD [facility] [address] [place] [address] 08/02/2020 00:00:00 08/02/2020 15:57:22 [id number] Cristine kelly MD [facility] Internal Med [facility] [address], [address] [address] 08/09/2020 00:00:00 08/09/2020 17:12:13 [id number] [facility] _ATHENA_M IGRATION_ DEFAULT_1 _1 , 08/26/2020 00:00:00 08/26/2020 18:24:25 [id number] [facility] _ATHENA_M IGRATION_ DEFAULT_1 _1 , 11/25/2020 00:00:00 11/25/2020 16:23:15 [id number] Annabelle Denney NP [facility] [address] [place] [address] [address] 08/13/2020 00:00:00 08/13/2020 11:06:48 [id number] Annabelle Denney NP [facility] [address] [address] 10/02/2020 00:00:00 10/02/2020 18:04:03 [id number] [facility] [address] [place] [address] [address] 10/30/2020 00:00:00 10/30/2020 14:54:00 [id number] [facility] [address] [place] [address] [address] 11/28/2020 00:00:00 11/28/2020 15:54:58 [id number] Annabelle Den[facility] [address] [place] [address] [address] 12/18/2020 00:00:00 12/18/2020 16:46:49 Health Concerns Section Related Observation LastModified by Organization Detai ls LastModified Time None Recorded Concern Status LastModified by Organization Details LastModified Time None Recorded Advance Directives Directive None Recorded Payers Insurance Date Sequence Insurance Name Policy Number Policy Sharma Covered Member ID Sharma Member ID Guarantor Name 06/28/2023 1 [facility] (MEDICAID HMO) [id number] Charis Peres [id number] Charis Peres OBGyn Episode No OBEpisode recorded.
--- OUTSIDE RECORDS SUMMARY | 2024-08-10 15:16 | XMS_ITS | Encounter Summary ---
Author Organization [facility] Address 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
--- OUTSIDE RECORDS SUMMARY | 2024-08-10 15:16 | XMS_ITS | Encounter Summary ---
Author Organization [facility] Address 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
--- OUTSIDE RECORDS SUMMARY | 2024-08-10 15:16 | XMS_ITS | Encounter Summary ---
Author Organization [facility] Address 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
--- OUTSIDE RECORDS SUMMARY | 2024-08-10 15:16 | XMS_ITS | Encounter Summary ---
Author Organization [facility] Address 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
--- OUTSIDE RECORDS SUMMARY | 2024-08-10 15:16 | XMS_ITS | Encounter Summary ---
Author Organization [facility] Address [address] [place] [address] Care Team Providers Care Wireless Cellular Technician Name Role Phone Unavailable Primary Care Provider Unavailabl e Encounter Details Date Type Department Care Team (Late st Contact Info) Description 05/31/1998 Outpatient Historical [facility] Pediatric[facility] [address] [place] [address] Moises Guerrero Social History Tobacco Use Types Packs/Day Years Used Date Smoking Tobacco: Never Assessed Comments Unknown Sex and Gender Information Value Date Recorded Sex Assigned at Not on file Legal Sex Female 2:44 AM SHIPPING INSPECTOR Gender Identity Not on file Sexual Orientation Not on file documented as of this encounter Plan of Treatment Not on file documented as of this encounter Procedures Procedure Name Priority Date/Time Associated Diagnosis Comments CHG HEPATITIS B VACCINE PED ADOL IM 3 DOSE VFC 05/31/1998 12:00 AM SHIPPING INSPECTOR CHG DTAP VACCINE <7 YO IM VFC 05/31/1998 12:00 AM SHIPPING INSPECTOR documented in this encounter Visit Diagnoses Not on filedocumented in this encounter
--- OUTSIDE RECORDS SUMMARY | 2024-08-10 15:16 | XMS_ITS | Encounter Summary ---
Author Organization [facility] Address [address] [place] [address] Care Team Providers Care Stonemason Apprentice Name Role Phone Unavailable Primary Care Provider Unavailabl e Encounter Details Date Type Department Care Team (Late st Contact Info) Description 02/13/2003 Outpatient Historical [facility] Pediatrics [address] [place] [address] Murtaza Mcnulty MD [address] [place] [address] Social History Tobacco Use Types Packs/Day Years Used Date Smoking Tobacco: Never Assessed Comments Unknown Sex and Gender Information Value Date Recorded Sex Assigned at Not on file Legal Sex Female 2:44 AM CONTROL SYSTEMS ENGINEER Gender Identity Not on file Sexual Orientation Not on file documented as of this encounter Plan of Treatment Not on file documented as of this encounter Visit Diagnoses Not on filedocumented in this encounter
--- OUTSIDE RECORDS SUMMARY | 2024-08-10 15:16 | XMS_ITS | Encounter Summary ---
Author Organization [facility] Address [address] [place] [address] Care Team Providers Care Human Resources Hr Representative Name Role Phone Unavailable Primary Care Provider Unavailabl e Encounter Details Date Type Department Care Team (Late st Contact Info) Description 01/09/2004 Outpatient Historical [facility] Pediatrics [address] [place] [address] Murtaza Mcnulty MD [address] [place] [address] Social History Tobacco Use Types Packs/Day Years Used Date Smoking Tobacco: Never Assessed Comments Unknown Sex and Gender Information Value Date Recorded Sex Assigned at Not on file Legal Sex Female 2:44 AM SUPERVISOR DRAWING Gender Identity Not on file Sexual Orientation Not on file documented as of this encounter Plan of Treatment Not on file documented as of this encounter Visit Diagnoses Not on filedocumented in this encounter
--- OUTSIDE RECORDS SUMMARY | 2024-08-10 15:16 | XMS_ITS | Encounter Summary ---
Author Organization [facility] Address [address] [place] [address] Care Team Providers Care Interface Designer Name Role Phone Unavailable Primary Care Provider Unavailabl e Encounter Details Date Type Department Care Team (Late st Contact Info) Description 12/17/[address] [facility] Pediatrics [place] [address] [place] [address] Moises Guerrero Social History Tobacco Use Types Packs/Day Years Used Date Smoking Tobacco: Never Assessed Comments Unknown Sex and Gender Information Value Date Recorded Sex Assigned at Not on file Legal Sex Female 2:44 AM ACID DIPPER Gender Identity Not on file Sexual Orientation Not on file documented as of this encounter Plan of Treatment Not on file documented as of this encounter Visit Diagnoses Not on filedocumented in this encounter
--- OUTSIDE RECORDS SUMMARY | 2024-08-10 15:16 | XMS_ITS | Encounter Summary ---
Author Organization [facility] Address [address] [place] [address] Care Team Providers Care Respiratory Therapist Name Role Phone Unavailable Primary Care Provider Unavailabl e Encounter Details Date Type Department Care Team (Late st Contact Info) Description 05/06/2004 Outpatient Historical [facility] Pediatrics [address] [place] [address] Murtaza Mcnulty MD [address] [place] [address] Social History Tobacco Use Types Packs/Day Years Used Date Smoking Tobacco: Never Assessed Comments Unknown Sex and Gender Information Value Date Recorded Sex Assigned at Not on file Legal Sex Female 2:44 AM FITTER HAND Gender Identity Not on file Sexual Orientation Not on file documented as of this encounter Plan of Treatment Not on file documented as of this encounter Visit Diagnoses Not on filedocumented in this encounter
--- OUTSIDE RECORDS SUMMARY | 2024-08-10 15:16 | XMS_ITS | Encounter Summary ---
Author Organization [facility] Address [address] [place] [address] Care Team Providers Care E Commerce Merchandising Coordinator Name Role Phone Unavailable Primary Care Provider Unavailabl e Encounter Details Date Type Department Care Team (Late st Contact Info) Description 11/28/1998 Outpatient Historical [facility] Pediatrics [place] [address] [place] [address] Moises Guerrero Social History Tobacco Use Types Packs/Day Years Used Date Smoking Tobacco: Never Assessed Comments Unknown Sex and Gender Information Value Date Recorded Sex Assigned at Not on file Legal Sex Female 2:44 AM MILK RECEIVER TANK TRUCK Gender Identity Not on file Sexual Orientation Not on file documented as of this encounter Plan of Treatment Not on file documented as of this encounter Visit Diagnoses Not on filedocumented in this encounter
--- OUTSIDE RECORDS SUMMARY | 2024-08-10 15:16 | XMS_ITS | Encounter Summary ---
Author Organization [facility] Address [address] [place] [address] Care Team Providers Care Hand Lacer Name Role Phone Unavailable Primary Care Provider Unavailabl e Encounter Details Date Type Department Care Team (Late st Contact Info) Description 11/15/2003 Outpatient Historical [facility] Pediatrics [place] [address] [facility] [address] [place] [address] Kashmir Gunn MD [address] [facility] [address] [place] [address] Social History Tobacco Use Types Packs/Day Years Used Date Smoking Tobacco: Never Assessed Comments Unknown Sex and Gender Information Value Date Recorded Sex Assigned at Not on file Legal Sex Female 2:44 AM PHYSICIAN UNDERWRITER Gender Identity Not on file Sexual Orientation Not on file documented as of this encounter Plan of Treatment Not on file documented as of this encounter Procedures Procedure Name Priority Date/Time Associated Diagnosis Comments CHG POLIOVIRUS IPV [facility] 4 12:00 AM CDT CHG MMR VACCINE SQ [facility] 4 12:00 AM CDT CHG DTAP VACCINE <7 YO IM [facility] 11/15/2003 12:00 AM CDT documented in this encounter Visit Diagnoses Not on filedocumented in this encounter
--- OUTSIDE RECORDS SUMMARY | 2024-08-10 15:16 | XMS_ITS | Encounter Summary ---
Author Organization [facility] Address [address] [place] [address] Care Team Providers Care Stallion Manager Name Role Phone Unavailable Primary Care Provider Unavailabl e Encounter Details Date Type Department Care Team (Late st Contact Info) Description 05/28/1998 Outpatient Historical [facility] [place] Pediatrics [place] [address] [place] [address] Moises Guerrero Social History Tobacco Use Types Packs/Day Years Used Date Smoking Tobacco: Never Assessed Comments Unknown Sex and Gender Information Value Date Recorded Sex Assigned at Not on file Legal Sex Female 2:44 AM SHIP JOINER Gender Identity Not on file Sexual Orientation Not on file documented as of this encounter Plan of Treatment Not on file documented as of this encounter Visit Diagnoses Not on filedocumented in this encounter
--- OUTSIDE RECORDS SUMMARY | 2024-08-10 15:16 | XMS_ITS | Encounter Summary ---
Author Organization [facility] Address [address] [place] [address] Care Team Providers Care Travel Physical Therapist Name Role Phone Unavailable Primary Care Provider Unavailabl e Encounter Details Date Type Department Care Team (Late st Contact Info) Description 06/04/2003 Outpatient Historical [facility] Pediatrics [address] [place] [address] Murtaza Mcnulty MD [address] [place] [address] Social History Tobacco Use Types Packs/Day Years Used Date Smoking Tobacco: Never Assessed Comments Unknown Sex and Gender Information Value Date Recorded Sex Assigned at Not on file Legal Sex Female 2:44 AM VEGETABLE TRIMMER Gender Identity Not on file Sexual Orientation Not on file documented as of this encounter Plan of Treatment Not on file documented as of this encounter Visit Diagnoses Not on filedocumented in this encounter
--- OUTSIDE RECORDS SUMMARY | 2024-08-10 15:16 | XMS_ITS | Encounter Summary ---
Author Organization [facility] Address [address] [place] [address] Care Team Providers Care Analytics Developer Name Role Phone Unavailable Primary Care Provider Unavailabl e Encounter Details Date Type Department Care Team (Late st Contact Info) Description 02/06/[address] [facility] Pediatrics [address] [place] [address] Murtaza Mcnulty MD [address] [place] [address] Social History Tobacco Use Types Packs/Day Years Used Date Smoking Tobacco: Never Assessed Comments Unknown Sex and Gender Information Value Date Recorded Sex Assigned at Not on file Legal Sex Female 2:44 AM FLOOR RUNNER Gender Identity Not on file Sexual Orientation Not on file documented as of this encounter Plan of Treatment Not on file documented as of this encounter Visit Diagnoses Not on filedocumented in this encounter
--- OUTSIDE RECORDS SUMMARY | 2024-08-10 15:16 | XMS_ITS | Encounter Summary ---
Author Organization [facility] Address [address] [place] [address] Care Team Providers Care Assistant To The Director Name Role Phone Unavailable Primary Care Provider Unavailabl e Encounter Details Date Type Department Care Team (Late st Contact Info) Description 12/03/1998 Outpatient Historical [facility] Pediatrics [place] [address] [place] [address] Moises Guerrero Social History Tobacco Use Types Packs/Day Years Used Date Smoking Tobacco: Never Assessed Comments Unknown Sex and Gender Information Value Date Recorded Sex Assigned at Not on file Legal Sex Female 2:44 AM INSTRUCTIONAL MANAGER Gender Identity Not on file Sexual Orientation Not on file documented as of this encounter Plan of Treatment Not on file documented as of this encounter Visit Diagnoses Not on filedocumented in this encounter
[2024-08-10 15:33] LABS: Basophils Absolute Auto 0.1 K/mm3 (0.0-0.1); Basophils Percent Auto 0.7 % (0.2-1.2); Eosinophils Absolute Auto 0.5 K/mm3 (0-0.3); Eosinophils Percent Auto 2.8 % (0-4.4); Hemoglobin 11.7 g/dL (12.0-15.0); Immature Granulocyte Absolute 0.29 K/mm3 (0.00-0.031); Immature Granulocyte Percent A 1.8 % (0-0.5); Lymphocytes Absolute Auto 2.04 K/mm3 (0.9-3.2); Lymphocytes Percent Auto 12.7 % (18.3-44.2); Mean Corpuscular HGB Conc 33.4 g/dl (32-36); Mean Corpuscular Hemoglobin 30.8 pg (26-34); Mean Corpuscular Volume 92.1 fl (80-100); Mean Platelet Volume 9.6 fl (7.4-10.4); Monocytes Absolute Auto 1.2 K/mm3 (0.1-0.6); Monocytes Percent Auto 7.6 % (2.6-8.5); Neutrophils Absolute Auto 11.9 K/mm3 (1.3-6.7); Neutrophils Percent Auto 74.4 % (45.5-73.1); Platelet Count Result 262 k/mm3 (150-375); Red Cell Distribution Width 14.1 % (11.5-14.5)
[2024-08-10 15:43] LABS: Alanine Aminotransferase 35 U/L (6-35); Alkaline Phosphatase 43 U/L (38-126); Anion Gap 7 mmol/L (4-12); Aspartate Amino Transferase 35 U/L (14-36); Bilirubin,Total 0.3 mg/dL (0.2-1.3); Blood Urea Nitrogen 13 mg/dL (7-17); Calcium 9.3 mg/dL (8.4-10.2); Carbon Dioxide 23 mmol/L (22-30); Chloride 106 mmol/L (98-107); Estimated Glomerular Filt Rate > 60; Glucose 92 mg/dL (65-110); Lipase 66 U/L (23-300); Potassium 4.3 mmol/L (3.4-5.0); Sodium 136 mmol/L (137-145); Total Protein 6.7 g/dL (6.3-8.2)
[2024-08-10] MEDS: FAMOTIDINE 20 MG TABLET PO (15:43)
--- OUTSIDE RECORDS SUMMARY | 2024-08-10 15:44 | XMS_ITS | Encounter Summary ---
Author Organization [facility] Address [address] [place] [address] Care Team Providers Care Belt Buckle Maker Name Role Phone Unavailable Primary Care Provider Unavailabl e Encounter Details Date Type Department Care Team (Late st Contact Info) Description 09/06/1998 Outpatient Historical [facility] Pediatrics [place] [address] [place] [address] Moises Guerrero Social History Tobacco Use Types Packs/Day Years Used Date Smoking Tobacco: Never Assessed Comments Unknown Sex and Gender Information Value Date Recorded Sex Assigned at Not on file Legal Sex Female 2:44 AM SALES AND PRODUCTION MANAGER Gender Identity Not on file Sexual Orientation Not on file documented as of this encounter Plan of Treatment Not on file documented as of this encounter Visit Diagnoses Not on filedocumented in this encounter
--- OUTSIDE RECORDS SUMMARY | 2024-08-10 15:44 | XMS_ITS | Encounter Summary ---
Author Organization [facility] Address [address] [place] [address] Care Team Providers Care Senior Python Developer Name Role Phone Unavailable Primary Care Provider Unavailabl e Encounter Details Date Type Department Care Team (Late st Contact Info) Description 07/25/1999 Outpatient Historical [facility] Pediatrics [place] [address] [place] [address] Moises Guerrero Social History Tobacco Use Types Packs/Day Years Used Date Smoking Tobacco: Never Assessed Comments Unknown Sex and Gender Information Value Date Recorded Sex Assigned at Not on file Legal Sex Female 2:44 AM CUTTER OPERATOR TILE Gender Identity Not on file Sexual Orientation Not on file documented as of this encounter Plan of Treatment Not on file documented as of this encounter Visit Diagnoses Not on filedocumented in this encounter
--- OUTSIDE RECORDS SUMMARY | 2024-08-10 15:44 | XMS_ITS | Encounter Summary ---
Author Organization [facility] Address [address] [place] [address] Care Team Providers Care Psychologist Experimental Name Role Phone Unavailable Primary Care Provider Unavailabl e Encounter Details Date Type Department Care Team (Late st Contact Info) Description 03/26/2000 Outpatient Historical [facility] Pediatrics [place] [address] [facility] [address] [place] [address] Kashmir Gunn MD [address] [facility] [address] [place] [address] Social History Tobacco Use Types Packs/Day Years Used Date Smoking Tobacco: Never Assessed Comments Unknown Sex and Gender Information Value Date Recorded Sex Assigned at Not on file Legal Sex Female 2:44 AM BAKING FACTORY 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
--- OUTSIDE RECORDS SUMMARY | 2024-08-10 15:44 | XMS_ITS | Encounter Summary ---
Author Organization [facility] Address [address] [place] [address] Care Team Providers Care Food Scientist Name Role Phone Unavailable Primary Care Provider Unavailabl e Encounter Details Date Type Department Care Team (Late st Contact Info) Description 06/12/1999 Outpatient Historical [facility] Pediatrics [place] [address] [place] [address] Moises Guerrero Social History Tobacco Use Types Packs/Day Years Used Date Smoking Tobacco: Never Assessed Comments Unknown Sex and Gender Information Value Date Recorded Sex Assigned at Not on file Legal Sex Female 2:44 AM DERMATOLOGY PROCEDURAL PHYSICIAN Gender Identity Not on file Sexual Orientation Not on file documented as of this encounter Plan of Treatment Not on file documented as of this encounter Visit Diagnoses Not on filedocumented in this encounter
--- OUTSIDE RECORDS SUMMARY | 2024-08-10 15:44 | XMS_ITS | Encounter Summary ---
Author Organization [facility] Address [address] [place] [address] Care Team Providers Care Envelope Addresser Name Role Phone Unavailable Primary Care Provider Unavailabl e Encounter Details Date Type Department Care Team (Late st Contact Info) Description 09/21/[address] [facility] Pediatrics [place] [address] [facility] [address] [place] [address] Edgar Morton MD [address] [facility] [address] [place] [address] Social History Tobacco Use Types Packs/Day Years Used Date Smoking Tobacco: Never Assessed Comments Unknown Sex and Gender Information Value Date Recorded Sex Assigned at Not on file Legal Sex Female 2:44 AM CASHIER GREETER Gender Identity Not on file Sexual Orientation Not on file documented as of this encounter Plan of Treatment Not on file documented as of this encounter Visit Diagnoses Not on filedocumented in this encounter
--- OUTSIDE RECORDS SUMMARY | 2024-08-10 15:44 | XMS_ITS | Clinical Summary ---
Author Organization [facility] Address [address] [place] [address] Phone Care Team Providers Care Electric Cell Tender Name Role Phone Unavailable Primary Care [...] on file Legal Sex Female 2:44 AM DISTRICT ASSOCIATE JUDGE Gender Identity Not on file Sexual Orientation Not on file Occupation Industry Job Start Date Job End Date Not on file Not on file Not on file Not on file Last Filed Vital Signs Vital Sign Reading Time Taken Comments Blood Pressure 110/80 01/28/2016 11:54 AM DISTRICT ASSOCIATE JUDGE Pulse 101 01/28/2016 11:54 AM DISTRICT ASSOCIATE JUDGE Temperature 37.1 C (98.7 F) 01/28/2016 11:54 AM DISTRICT ASSOCIATE JUDGE Respiratory Rate 18 01/28/2016 11:54 AM DISTRICT ASSOCIATE JUDGE Oxygen Saturation 97% 01/28/2016 11:54 AM DISTRICT ASSOCIATE JUDGE Inhaled Oxygen Concentration - - Weight 61.7 kg (136 lb) 01/28/2016 11:54 AM DISTRICT ASSOCIATE JUDGE Height 160 cm (5' 3) 01/28/2016 11:54 AM DISTRICT ASSOCIATE JUDGE Body Mass Index 24.09 01/28/2016 11:54 AM DISTRICT ASSOCIATE JUDGE Plan of Treatment Health Maintenance Due Date Last Done Comments HPV VACCINES (1 - 3-dose series) 2012 DTAP/TDAP/TD VACCINES (1 - Tdap) 2016 HEPATITIS B VACCINES (1 of 3 - 19+ 3-dose series) 10/31 CERVICAL CANCER SCREENING 2018 HPV/Cotest (21-29) 2018 PAP SMEAR 2018 INFLUENZA VACCINE (#1) 2023
--- OUTSIDE RECORDS SUMMARY | 2024-08-10 15:44 | XMS_ITS | Clinical Summary ---
Author Organization [facility] Address [address] [place] [address] Phone Care Team Providers Care Manager Decision Support Name Role Phone Varun Chavez MD Primary [...] making a change Department associated with goal: [facility] Steps to achieve [...] track(2021 2:25 PM CDT) Yes Sandra Rich, [facility] Insurance MEDICAID [employer] Care Teams Manager Decision Support Relationship Specialty Start Date End Date Varun Chavez MD [address] [place] [address] PCP - General Internal Medicine 11/13/21
--- OUTSIDE RECORDS SUMMARY | 2024-08-10 15:44 | XMS_ITS | Encounter Summary ---
Author Organization [facility] Address [address] [place] [address] Care Team Providers Care Line Production Cook Name Role Phone Unavailable Primary Care Provider Unavailabl e Encounter Details Date Type Department Care Team (Late st Contact Info) Description 06/01/2000 Outpatient Historical [facility] Pediatrics [place] [address] [facility] [address] [place] [address] Kashmir Gunn MD [address] [facility] [address] [place] [address] Social History Tobacco Use Types Packs/Day Years Used Date Smoking Tobacco: Never Assessed Comments Unknown Sex and Gender Information Value Date Recorded Sex Assigned at Not on file Legal Sex Female 2:44 AM CHILDCARE 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
--- OUTSIDE RECORDS SUMMARY | 2024-08-10 15:44 | XMS_ITS | Encounter Summary ---
Author Organization [facility] Address [address] [place] [address] Care Team Providers Care Medical Insurance Coding Specialist Name Role Phone Unavailable Primary Care Provider Unavailabl e Encounter Details Date Type Department Care Team (Late st Contact Info) Description 12/03/1998 Outpatient Historical [facility] Pediatrics [place] [address] [place] [address] Moises Guerrero Social History Tobacco Use Types Packs/Day Years Used Date Smoking Tobacco: Never Assessed Comments Unknown Sex and Gender Information Value Date Recorded Sex Assigned at Not on file Legal Sex Female 2:44 AM OIL FIELD 

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
--- OUTSIDE RECORDS SUMMARY | 2024-08-10 15:44 | XMS_ITS | Encounter Summary ---
Author Organization [facility] Address [address] [place] [address] Care Team Providers Care Peoplesoft Consultant Name Role Phone Unavailable Primary Care Provider Unavailabl e Encounter Details Date Type Department Care Team (Late st Contact Info) Description 04/03/2000 Outpatient Historical [facility] Pediatrics [place] [address] [facility] [address] [place] [address] Luis Conklin MD [address] [place] [address] Social History Tobacco Use Types Packs/Day Years Used Date Smoking Tobacco: Never Assessed Comments Unknown Sex and Gender Information Value Date Recorded Sex Assigned at Not on file Legal Sex Female 2:44 AM PROOF PLATE 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
--- OUTSIDE RECORDS SUMMARY | 2024-08-10 15:44 | XMS_ITS | Encounter Summary ---
Author Organization [facility] Address [address] [place] [address] Care Team Providers Care Lumber Tallier Name Role Phone Unavailable Primary Care Provider Unavailabl e Encounter Details Date Type Department Care Team (Late st Contact Info) Description 04/29/1999 Outpatient Historical [facility] Pediatrics [place] [address] [place] [address] Moises Guerrero Social History Tobacco Use Types Packs/Day Years Used Date Smoking Tobacco: Never Assessed Comments Unknown Sex and Gender Information Value Date Recorded Sex Assigned at Not on file Legal Sex Female 2:44 AM SNAP ATTACHER Gender Identity Not on file Sexual Orientation Not on file documented as of this encounter Plan of Treatment Not on file documented as of this encounter Visit Diagnoses Not on filedocumented in this encounter
--- OUTSIDE RECORDS SUMMARY | 2024-08-10 15:44 | XMS_ITS | Encounter Summary ---
Author Organization [facility] Address [address] [place] [address] Care Team Providers Care Welder Manufacture Name Role Phone Unavailable Primary Care Provider Unavailabl e Encounter Details Date Type Department Care Team (Late st Contact Info) Description 08/23/1998 Outpatient Historical [facility] Pediatrics [place] [address] [place] [address] Moises Guerrero Social History Tobacco Use Types Packs/Day Years Used Date Smoking Tobacco: Never Assessed Comments Unknown Sex and Gender Information Value Date Recorded Sex Assigned at Not on file Legal Sex Female 2:44 AM STRIP MACHINE 

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
--- OUTSIDE RECORDS SUMMARY | 2024-08-10 15:44 | XMS_ITS | Encounter Summary ---
Author Organization [facility] Address [address] [place] [address] Care Team Providers Care Barrel Lathe Operator Inside Name Role Phone Unavailable Primary Care Provider Unavailabl e Encounter Details Date Type Department Care Team (Late st Contact Info) Description 01/05/2000 Outpatient Historical [facility] Pediatrics [place] [address] [place] [address] Kashmir Gunn MD [address] [facility] [address] [place] [address] Social History Tobacco Use Types Packs/Day Years Used Date Smoking Tobacco: Never Assessed Comments Unknown Sex and Gender Information Value Date Recorded Sex Assigned at Not on file Legal Sex Female 2:44 AM COUNTY TREASURER Gender Identity Not on file Sexual Orientation Not on file documented as of this encounter Plan of Treatment Not on file documented as of this encounter Visit Diagnoses Not on filedocumented in this encounter
--- OUTSIDE RECORDS SUMMARY | 2024-08-10 15:44 | XMS_ITS | Encounter Summary ---
Author Organization [facility] Address [address] [place] [address] Care Team Providers Care Customer Experience Consultant Name Role Phone Unavailable Primary Care Provider Unavailabl e Encounter Details Date Type Department Care Team (Late st Contact Info) Description 02/05/[address] [facility] Pediatrics [place] [address] [facility] [address] [place] [address] Kashmir Gunn MD 20 [facility] [address] [place] [address] Social History Tobacco Use Types Packs/Day Years Used Date Smoking Tobacco: Never Assessed Comments Unknown Sex and Gender Information Value Date Recorded Sex Assigned at Not on file Legal Sex Female 2:44 AM DRYING MACHINE TENDER Gender Identity Not on file Sexual Orientation Not on file documented as of this encounter Plan of Treatment Not on file documented as of this encounter Visit Diagnoses Not on filedocumented in this encounter
--- OUTSIDE RECORDS SUMMARY | 2024-08-10 15:44 | XMS_ITS | Encounter Summary ---
Author Organization [facility] Address [address] [place] [address] Care Team Providers Care Gear Straightener Name Role Phone Unavailable Primary Care Provider Unavailabl e Encounter Details Date Type Department Care Team (Late st Contact Info) Description 01/06/1999 Outpatient Historical [facility] Pediatrics [place] [address] [place] [address] Moises Guerrero Social History Tobacco Use Types Packs/Day Years Used Date Smoking Tobacco: Never Assessed Comments Unknown Sex and Gender Information Value Date Recorded Sex Assigned at Not on file Legal Sex Female 2:44 AM INDUSTRIAL CUSTODIAN Gender Identity Not on file Sexual Orientation Not on file documented as of this encounter Plan of Treatment Not on file documented as of this encounter Visit Diagnoses Not on filedocumented in this encounter
--- OUTSIDE RECORDS SUMMARY | 2024-08-10 15:44 | XMS_ITS | Encounter Summary ---
Author Organization [facility] Address [address] [place] [address] Care Team Providers Care Atmospheric Drier Tender Name Role Phone Unavailable Primary Care Provider Unavailabl e Encounter Details Date Type Department Care Team (Late st Contact Info) Description 11/28/1998 Outpatient Historical [facility] Pediatrics [place] [address] [place] [address] Moises Guerrero Social History Tobacco Use Types Packs/Day Years Used Date Smoking Tobacco: Never Assessed Comments Unknown Sex and Gender Information Value Date Recorded Sex Assigned at Not on file Legal Sex Female 2:44 AM SCREENING UNIT REGISTERED NURSE Gender Identity Not on file Sexual Orientation Not on file documented as of this encounter Plan of Treatment Not on file documented as of this encounter Visit Diagnoses Not on filedocumented in this encounter
--- OUTSIDE RECORDS SUMMARY | 2024-08-10 15:44 | XMS_ITS | Encounter Summary ---
Author Organization [facility] Address [address] [place] [address] Care Team Providers Care Machine Feeder Name Role Phone Unavailable Primary Care Provider Unavailabl e Encounter Details Date Type Department Care Team (Late st Contact Info) Description 10/25/1998 Outpatient Historical [facility] Pediatrics [place] [address] [place] [address] Moises Guerrero Social History Tobacco Use Types Packs/Day Years Used Date Smoking Tobacco: Never Assessed Comments Unknown Sex and Gender Information Value Date Recorded Sex Assigned at Not on file Legal Sex Female 2:44 AM MORTGAGE LOAN INTERVIEWER Gender Identity Not on file Sexual Orientation Not on file documented as of this encounter Plan of Treatment Not on file documented as of this encounter Visit Diagnoses Not on filedocumented in this encounter
--- OUTSIDE RECORDS SUMMARY | 2024-08-10 15:44 | XMS_ITS | Encounter Summary ---
Author Organization [facility] Address [address] [place] [address] Care Team Providers Care Design Draftsman Name Role Phone Unavailable Primary Care Provider Unavailabl e Encounter Details Date Type Department Care Team (Late st Contact Info) Description 12/17/1998 Outpatient Historical [facility] Pediatrics [place] [address] [place] [address] Moises Guerrero Social History Tobacco Use Types Packs/Day Years Used Date Smoking Tobacco: Never Assessed Comments Unknown Sex and Gender Information Value Date Recorded Sex Assigned at Not on file Legal Sex Female 2:44 AM MICROCOMPUTER SUPPORT SPECIALIST Gender Identity Not on file Sexual Orientation Not on file documented as of this encounter Plan of Treatment Not on file documented as of this encounter Visit Diagnoses Not on filedocumented in this encounter
--- OUTSIDE RECORDS SUMMARY | 2024-08-10 15:44 | XMS_ITS | Encounter Summary ---
Author Organization [facility] Address [address] [place] [address] Care Team Providers Care High Court Justice Name Role Phone Unavailable Primary Care Provider Unavailabl e Encounter Details Date Type Department Care Team (Late st Contact Info) Description 08/23/1998 Outpatient Historical [facility] Pediatrics [place] [address] [place] [address] Moises Guerrero Social History Tobacco Use Types Packs/Day Years Used Date Smoking Tobacco: Never Assessed Comments Unknown Sex and Gender Information Value Date Recorded Sex Assigned at Not on file Legal Sex Female 2:44 AM HORSE STUD 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
--- OUTSIDE RECORDS SUMMARY | 2024-08-10 15:44 | XMS_ITS | Encounter Summary ---
Author Organization [facility] Address [address] [place] [address] Care Team Providers Care Offset Label Rewinder Name Role Phone Unavailable Primary Care Provider Unavailabl e Encounter Details Date Type Department Care Team (Late st Contact Info) Description 08/11/1999 Outpatient Historical [facility] Pediatrics [place] [address] [place] [address] Moises Guerrero Social History Tobacco Use Types Packs/Day Years Used Date Smoking Tobacco: Never Assessed Comments Unknown Sex and Gender Information Value Date Recorded Sex Assigned at Not on file Legal Sex Female 2:44 AM APPLIANCE FIXER Gender Identity Not on file Sexual Orientation Not on file documented as of this encounter Plan of Treatment Not on file documented as of this encounter Visit Diagnoses Not on filedocumented in this encounter
--- OUTSIDE RECORDS SUMMARY | 2024-08-10 15:44 | XMS_ITS | Encounter Summary ---
Author Organization [facility] Address [address] [place] [address] Care Team Providers Care Entry Level Sales Associate Name Role Phone Unavailable Primary Care Provider Unavailabl e Encounter Details Date Type Department Care Team (Late st Contact Info) Description 11/28/[address] [facility] Pediatrics [place] [address] [place] [address] Moises Guerrero Social History Tobacco Use Types Packs/Day Years Used Date Smoking Tobacco: Never Assessed Comments Unknown Sex and Gender Information Value Date Recorded Sex Assigned at Not on file Legal Sex Female 2:44 AM VEST BASTER Gender Identity Not on file Sexual Orientation Not on file documented as of this encounter Plan of Treatment Not on file documented as of this encounter Visit Diagnoses Not on filedocumented in this encounter
--- OUTSIDE RECORDS SUMMARY | 2024-08-10 15:44 | XMS_ITS | Encounter Summary ---
Author Organization [facility] Address [address] [place] [address] Care Team Providers Care Orthopedic Shoe Fitter Name Role Phone Unavailable Primary Care Provider Unavailabl e Encounter Details Date Type Department Care Team (Late st Contact Info) Description 08/15/1999 Outpatient Historical [facility] Pediatrics [place] [address] [place] [address] Moises Guerrero Social History Tobacco Use Types Packs/Day Years Used Date Smoking Tobacco: Never Assessed Comments Unknown Sex and Gender Information Value Date Recorded Sex Assigned at Not on file Legal Sex Female 2:44 AM SCIENCE FACULTY MEMBER Gender Identity Not on file Sexual Orientation Not on file documented as of this encounter Plan of Treatment Not on file documented as of this encounter Visit Diagnoses Not on filedocumented in this encounter
--- OUTSIDE RECORDS SUMMARY | 2024-08-10 15:44 | XMS_ITS | Encounter Summary ---
Author Organization [facility] Address [address] [place] [address] Care Team Providers Care Water Trainer Name Role Phone Unavailable Primary Care Provider Unavailabl e Encounter Details Date Type Department Care Team (Late st Contact Info) Description 05/29/1999 Outpatient Historical [facility] Pediatrics [place] [address] [place] [address] Moises Guerrero Social History Tobacco Use Types Packs/Day Years Used Date Smoking Tobacco: Never Assessed Comments Unknown Sex and Gender Information Value Date Recorded Sex Assigned at Not on file Legal Sex Female 2:44 AM HIGH VALUE ASSOCIATE Gender Identity Not on file Sexual Orientation Not on file documented as of this encounter Plan of Treatment Not on file documented as of this encounter Visit Diagnoses Not on filedocumented in this encounter
--- OUTSIDE RECORDS SUMMARY | 2024-08-10 15:45 | XMS_ITS | Encounter Summary ---
Author Organization [facility] Address [address] [place] [address] Care Team Providers Care Tube Puller Name Role Phone Unavailable Primary Care Provider Unavailabl e Encounter Details Date Type Department Care Team (Late st Contact Info) Description 01/14/1998 Outpatient Historical [facility] Pediatrics [place] [address] [place] [address] Moises Guerrero Social History Tobacco Use Types Packs/Day Years Used Date Smoking Tobacco: Never Assessed Comments Unknown Sex and Gender Information Value Date Recorded Sex Assigned at Not on file Legal Sex Female 2:44 AM SECURITY GUARDS DISPATCHER Gender Identity Not on file Sexual Orientation Not on file documented as of this encounter Plan of Treatment Not on file documented as of this encounter Visit Diagnoses Not on filedocumented in this encounter
--- OUTSIDE RECORDS SUMMARY | 2024-08-10 15:45 | XMS_ITS | Encounter Summary ---
Author Organization [facility] Address [address] [place] [address] Care Team Providers Care Plant Sciences Professor Name Role Phone Unavailable Primary Care Provider Unavailabl e Encounter Details Date Type Department Care Team (Late st Contact Info) Description 02/12/2004 Outpatient Historical [facility] Pediatrics [address] [place] [address] Murtaza Mcnulty MD [address] [place] [address] Social History Tobacco Use Types Packs/Day Years Used Date Smoking Tobacco: Never Assessed Comments Unknown Sex and Gender Information Value Date Recorded Sex Assigned at Not on file Legal Sex Female 2:44 AM COCKTAIL SERVER Gender Identity Not on file Sexual Orientation Not on file documented as of this encounter Plan of Treatment Not on file documented as of this encounter Visit Diagnoses Not on filedocumented in this encounter
--- OUTSIDE RECORDS SUMMARY | 2024-08-10 15:45 | XMS_ITS | Encounter Summary ---
Author Organization [facility] Address [address] [place] [address] Care Team Providers Care Regional Account Manager Name Role Phone Unavailable Primary Care Provider Unavailabl e Encounter Details Date Type Department Care Team (Late st Contact Info) Description 05/28/1998 Outpatient Historical [facility] Pediatrics [place] [address] [place] [address] Moises Guerrero Social History Tobacco Use Types Packs/Day Years Used Date Smoking Tobacco: Never Assessed Comments Unknown Sex and Gender Information Value Date Recorded Sex Assigned at Not on file Legal Sex Female 2:44 AM SPEECH THERAPY 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
--- OUTSIDE RECORDS SUMMARY | 2024-08-10 15:45 | XMS_ITS | Encounter Summary ---
Author Organization [facility] Address [address] [place] [address] Care Team Providers Care Household Cook Name Role Phone Unavailable Primary Care Provider Unavailabl e Encounter Details Date Type Department Care Team (Late st Contact Info) Description 06/04/2003 Outpatient Historical [facility] Pediatrics [address] [place] [address] Murtaza Mcnulty MD [address] [place] [address] Social History Tobacco Use Types Packs/Day Years Used Date Smoking Tobacco: Never Assessed Comments Unknown Sex and Gender Information Value Date Recorded Sex Assigned at Not on file Legal Sex Female 2:44 AM TRAINMASTER Gender Identity Not on file Sexual Orientation Not on file documented as of this encounter Plan of Treatment Not on file documented as of this encounter Visit Diagnoses Not on filedocumented in this encounter
--- OUTSIDE RECORDS SUMMARY | 2024-08-10 15:45 | XMS_ITS | Encounter Summary ---
Author Organization [facility] Address [address] [place] [address] Care Team Providers Care Upholstery Parts Sorter Name Role Phone Unavailable Primary Care Provider Unavailabl e Encounter Details Date Type Department Care Team (Late st Contact Info) Description 01/09/2004 Outpatient Historical [facility] Pediatrics [address] [place] [address] Murtaza Mcnulty MD [address] [place] [address] Social History Tobacco Use Types Packs/Day Years Used Date Smoking Tobacco: Never Assessed Comments Unknown Sex and Gender Information Value Date Recorded Sex Assigned at Not on file Legal Sex Female 2:44 AM TEXTILE SUPERVISOR Gender Identity Not on file Sexual Orientation Not on file documented as of this encounter Plan of Treatment Not on file documented as of this encounter Visit Diagnoses Not on filedocumented in this encounter
--- OUTSIDE RECORDS SUMMARY | 2024-08-10 15:45 | XMS_ITS | Encounter Summary ---
Author Organization [facility] Address [address] [place] [address] Care Team Providers Care Hip Hop Dance Instructor Name Role Phone Unavailable Primary Care Provider Unavailabl e Encounter Details Date Type Department Care Team (Late st Contact Info) Description 05/31/1998 Outpatient Historical [facility] Pediatrics [address] [place] [address] Moises Guerrero Social History Tobacco Use Types Packs/Day Years Used Date Smoking Tobacco: Never Assessed Comments Unknown Sex and Gender Information Value Date Recorded Sex Assigned at Not on file Legal Sex Female 2:44 AM FLOORWORKER Gender Identity Not on file Sexual Orientation Not on file documented as of this encounter Plan of Treatment Not on file documented as of this encounter Procedures Procedure Name Priority Date/Time Associated Diagnosis Comments CHG POLIOVIRUS VACCINE LIVE ORAL VFC 05/31/1998 12:00 AM FLOORWORKER documented in this encounter Visit Diagnoses Not on filedocumented in this encounter
--- OUTSIDE RECORDS SUMMARY | 2024-08-10 15:45 | XMS_ITS | Encounter Summary ---
Author Organization [facility] Address [address] [place] [address] Care Team Providers Care Sports Apparel Internship Name Role Phone Unavailable Primary Care Provider Unavailabl e Encounter Details Date Type Department Care Team (Late st Contact Info) Description 06/06/2001 Outpatient Historical [facility] Pediatrics [place] [address] [facility] [address] [place] [address] Kashmir Gunn MD [address] [facility] [address] [place] [address] Social History Tobacco Use Types Packs/Day Years Used Date Smoking Tobacco: Never Assessed Comments Unknown Sex and Gender Information Value Date Recorded Sex Assigned at Not on file Legal Sex Female 2:44 AM SUPERVISOR GAME FARM Gender Identity Not on file Sexual Orientation Not on file documented as of this encounter Plan of Treatment Not on file documented as of this encounter Visit Diagnoses Not on filedocumented in this encounter
--- OUTSIDE RECORDS SUMMARY | 2024-08-10 15:45 | XMS_ITS | Encounter Summary ---
Author Organization [facility] Address [address] [place] [address] Care Team Providers Care Loom Stop Checker Name Role Phone Unavailable Primary Care Provider Unavailabl e Encounter Details Date Type Department Care Team (Late st Contact Info) Description 07/10/1998 Outpatient Historical [facility] Pediatrics [place] [address] [place] [address] Moises Guerrero Social History Tobacco Use Types Packs/Day Years Used Date Smoking Tobacco: Never Assessed Comments Unknown Sex and Gender Information Value Date Recorded Sex Assigned at Not on file Legal Sex Female 2:44 AM PATTERNMAKER METAL Gender Identity Not on file Sexual Orientation Not on file documented as of this encounter Plan of Treatment Not on file documented as of this encounter Visit Diagnoses Not on filedocumented in this encounter
--- OUTSIDE RECORDS SUMMARY | 2024-08-10 15:45 | XMS_ITS | Encounter Summary ---
Author Organization [facility] Address [address] [place] [address] Care Team Providers Care Catalog Librarian Name Role Phone Unavailable Primary Care Provider Unavailabl e Encounter Details Date Type Department Care Team (Late st Contact Info) Description 03/22/2002 Outpatient Historical [facility] Pediatrics [address] [place] [address] Murtaza Mcnulty MD [address] [place] [address] Social History Tobacco Use Types Packs/Day Years Used Date Smoking Tobacco: Never Assessed Comments Unknown Sex and Gender Information Value Date Recorded Sex Assigned at Not on file Legal Sex Female 2:44 AM MINING AND QUARRYING MACHINERY REPAIRER Gender Identity Not on file Sexual Orientation Not on file documented as of this encounter Plan of Treatment Not on file documented as of this encounter Visit Diagnoses Not on filedocumented in this encounter
--- OUTSIDE RECORDS SUMMARY | 2024-08-10 15:45 | XMS_ITS | Encounter Summary ---
Author Organization [facility] Address [address] [place] [address] Care Team Providers Care Industrial Roof Plumber Name Role Phone Unavailable Primary Care Provider Unavailabl e Encounter Details Date Type Department Care Team (Late st Contact Info) Description 03/05/2001 Outpatient Historical [facility] Pediatrics [place] [address] [facility] [address] [place] [address] Luis Conklin MD [address] [place] [address] Social History Tobacco Use Types Packs/Day Years Used Date Smoking Tobacco: Never Assessed Comments Unknown Sex and Gender Information Value Date Recorded Sex Assigned at Not on file Legal Sex Female 2:44 AM PROGRAM DIRECTOR CABLE TELEVISION Gender Identity Not on file Sexual Orientation Not on file documented as of this encounter Plan of Treatment Not on file documented as of this encounter Visit Diagnoses Not on filedocumented in this encounter
--- OUTSIDE RECORDS SUMMARY | 2024-08-10 15:45 | XMS_ITS | Encounter Summary ---
Author Organization [facility] Address [address] [place] [address] Care Team Providers Care Silo Painter Name Role Phone Unavailable Primary Care Provider Unavailabl e Encounter Details Date Type Department Care Team (Late st Contact Info) Description 05/06/2004 Outpatient Historical [facility] Pediatrics [address] [place] [address] Murtaza Mcnulty MD [address] [place] [address] Social History Tobacco Use Types Packs/Day Years Used Date Smoking Tobacco: Never Assessed Comments Unknown Sex and Gender Information Value Date Recorded Sex Assigned at Not on file Legal Sex Female 2:44 AM SENIOR FINANCIAL ACCOUNTANT Gender Identity Not on file Sexual Orientation Not on file documented as of this encounter Plan of Treatment Not on file documented as of this encounter Visit Diagnoses Not on filedocumented in this encounter
--- OUTSIDE RECORDS SUMMARY | 2024-08-10 15:45 | XMS_ITS | Encounter Summary ---
Author Organization [facility] Address [address] [place] [address] Care Team Providers Care Manager English Name Role Phone Unavailable Primary Care Provider Unavailabl e Encounter Details Date Type Department Care Team (Late st Contact Info) Description 08/25/2001 Outpatient Historical [facility] Pediatrics [place] [address] [facility] [address] [place] [address] Kashmir Gunn MD [address] [facility] [address] [place] [address] Social History Tobacco Use Types Packs/Day Years Used Date Smoking Tobacco: Never Assessed Comments Unknown Sex and Gender Information Value Date Recorded Sex Assigned at Not on file Legal Sex Female 2:44 AM SOFTWARE ENGINEER Gender Identity Not on file Sexual Orientation Not on file documented as of this encounter Plan of Treatment Not on file documented as of this encounter Visit Diagnoses Not on filedocumented in this encounter
--- OUTSIDE RECORDS SUMMARY | 2024-08-10 15:45 | XMS_ITS | Encounter Summary ---
Author Organization [facility] Address [address] [place] [address] Care Team Providers Care Last Puller Name Role Phone Unavailable Primary Care Provider Unavailabl e Encounter Details Date Type Department Care Team (Late st Contact Info) Description 02/06/2004 Outpatient Historical [facility] Pediatrics [address] [place] [address] Murtaza Mcnulty MD [address] [place] [address] Social History Tobacco Use Types Packs/Day Years Used Date Smoking Tobacco: Never Assessed Comments Unknown Sex and Gender Information Value Date Recorded Sex Assigned at Not on file Legal Sex Female 2:44 AM CLINICAL SCIENCES PROFESSOR Gender Identity Not on file Sexual Orientation Not on file documented as of this encounter Plan of Treatment Not on file documented as of this encounter Visit Diagnoses Not on filedocumented in this encounter
--- OUTSIDE RECORDS SUMMARY | 2024-08-10 15:45 | XMS_ITS | Encounter Summary ---
Author Organization [facility] Address [address] [place] [address] Care Team Providers Care Criminal Investigator Customs Name Role Phone Unavailable Primary Care Provider Unavailabl e Encounter Details Date Type Department Care Team (Late st Contact Info) Description 05/31/1998 Outpatient Historical [facility] Pediatrics [address] [place] [address] Moises Guerrero Social History Tobacco Use Types Packs/Day Years Used Date Smoking Tobacco: Never Assessed Comments Unknown Sex and Gender Information Value Date Recorded Sex Assigned at Not on file Legal Sex Female 2:44 AM WINDOWS SOFTWARE DEVELOPER Gender Identity Not on file Sexual Orientation Not on file documented as of this encounter Plan of Treatment Not on file documented as of this encounter Procedures Procedure Name Priority Date/Time Associated Diagnosis Comments CHG HEPATITIS B VACCINE PED ADOL IM 3 DOSE VFC 05/31/1998 12:00 AM WINDOWS SOFTWARE DEVELOPER CHG DTAP VACCINE <7 YO IM VFC 05/31/1998 12:00 AM WINDOWS SOFTWARE DEVELOPER documented in this encounter Visit Diagnoses Not on filedocumented in this encounter
--- OUTSIDE RECORDS SUMMARY | 2024-08-10 15:45 | XMS_ITS | Encounter Summary ---
Author Organization [facility] Address [address] [place] [address] Care Team Providers Care Mapping Technician Name Role Phone Unavailable Primary Care Provider Unavailabl e Encounter Details Date Type Department Care Team (Late st Contact Info) Description 04/09/1998 Outpatient Historical [facility] Pediatric[facility] [place] [address] [place] [address] Moises Guerrero Social History Tobacco Use Types Packs/Day Years Used Date Smoking Tobacco: Never Assessed Comments Unknown Sex and Gender Information Value Date Recorded Sex Assigned at Not on file Legal Sex Female 2:44 AM DRY BOX TENDER Gender Identity Not on file Sexual Orientation Not on file documented as of this encounter Plan of Treatment Not on file documented as of this encounter Visit Diagnoses Not on filedocumented in this encounter
--- OUTSIDE RECORDS SUMMARY | 2024-08-10 15:45 | XMS_ITS | Encounter Summary ---
Author Organization [facility] Address [address] [place] [address] Care Team Providers Care International Trade Teacher Name Role Phone Unavailable Primary Care Provider Unavailabl e Encounter Details Date Type Department Care Team (Late st Contact Info) Description 07/09/2004 Outpatient Historical [facility] Pediatrics [address] [place] [address] Murtaza Mcnulty MD [address] [place] [address] Social History Tobacco Use Types Packs/Day Years Used Date Smoking Tobacco: Never Assessed Comments Unknown Sex and Gender Information Value Date Recorded Sex Assigned at Not on file Legal Sex Female 2:44 AM APPLIED BEHAVIOR SPECIALIST Gender Identity Not on file Sexual Orientation Not on file documented as of this encounter Plan of Treatment Not on file documented as of this encounter Visit Diagnoses Not on filedocumented in this encounter
--- OUTSIDE RECORDS SUMMARY | 2024-08-10 15:45 | XMS_ITS | Encounter Summary ---
Author Organization [facility] Address 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
--- OUTSIDE RECORDS SUMMARY | 2024-08-10 15:45 | XMS_ITS | Encounter Summary ---
Author Organization [facility] Address [address] [place] [address] Care Team Providers Care Skin Specialist Name Role Phone Unavailable Primary Care Provider Unavailabl e Encounter Details Date Type Department Care Team (Late st Contact Info) Description 11/04/2004 Outpatient Historical [facility] Pediatrics [address] [place] [address] Murtaza Mcnulty MD [address] [place] [address] Social History Tobacco Use Types Packs/Day Years Used Date Smoking Tobacco: Never Assessed Comments Unknown Sex and Gender Information Value Date Recorded Sex Assigned at Not on file Legal Sex Female 2:44 AM DIRECTOR OF TRAINING Gender Identity Not on file Sexual Orientation Not on file documented as of this encounter Plan of Treatment Not on file documented as of this encounter Visit Diagnoses Not on filedocumented in this encounter
--- OUTSIDE RECORDS SUMMARY | 2024-08-10 15:45 | XMS_ITS | Encounter Summary ---
Author Organization [facility] Address [address] [place] [address] Care Team Providers Care Manager Express Name Role Phone Unavailable Primary Care Provider Unavailabl e Encounter Details Date Type Department Care Team (Late st Contact Info) Description 02/13/2003 Outpatient Historical [facility] Pediatrics [address] [place] [address] Murtaza Mcnulty MD [address] [place] [address] Social History Tobacco Use Types Packs/Day Years Used Date Smoking Tobacco: Never Assessed Comments Unknown Sex and Gender Information Value Date Recorded Sex Assigned at Not on file Legal Sex Female 2:44 AM 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
--- OUTSIDE RECORDS SUMMARY | 2024-08-10 15:45 | XMS_ITS | Encounter Summary ---
Author Organization [facility] Address [address] [place] [address] Care Team Providers Care Mobility Manager Name Role Phone Unavailable Primary Care Provider Unavailabl e Encounter Details Date Type Department Care Team (Late st Contact Info) Description 11/15/2003 Outpatient Historical [facility] Pediatrics [place] [address] [facility] [address] [place] [address] Kashmir Gunn MD [address] [facility] [address] [place] [address] Social History Tobacco Use Types Packs/Day Years Used Date Smoking Tobacco: Never Assessed Comments Unknown Sex and Gender Information Value Date Recorded Sex Assigned at Not on file Legal Sex Female 2:44 AM POOL NURSE Gender Identity Not on file Sexual Orientation Not on file documented as of this encounter Plan of Treatment Not on file documented as of this encounter Procedures Procedure Name Priority Date/Time Associated Diagnosis Comments CHG POLIOVIRUS IPV [facility] 4 12:00 AM CDT CHG MMR VACCINE SQ [facility] 4 12:00 AM CDT CHG DTAP VACCINE <7 YO IM [facility] 11/15/2003 12:00 AM CDT documented in this encounter Visit Diagnoses Not on filedocumented in this encounter
--- NOTE | 2024-08-10 16:30 | ED_ITS ---
HPI - General Chief complaint: SCHOOL RESOURCE OFFICER Stated complaint: 15 wks, stabbing pain Time Seen by Provider: 08/10/24 14:46 Source: patient Mode of arrival: ambulatory Limitations: no limitations History of Present Illness HPI Narrative: Patient is a 28-year-old female who presents the ED with report of epigastric abdominal pain. Patient is currently 15 weeks gestation, confirmed IUP. Sees Dr. Pretty. Reports for the past 3 days, she has been having intermittent epigastric abdominal pain. Denies significant aggravating or relieving factors. Does note she has eaten a lot of applesauce lately and has had increased pain since then. States pain is intermittent, lasts for approximately 1 minutes at a time before resolving on its own. Has not taken anything for the pain. She does not history of previous acid reflux prior to . States this does not necessarily feel similar. Denies nausea, vomiting, diarrhea, constipation, melena, vaginal bleeding, urinary complaints, chest pain, shortness of breath. Related Data Allergies Allergy/AdvReac Type Severity Reaction Status Date / Time Sulfa (Sulfonamide Allergy Unknown RASH Verified 08/10/24 14:45 Antibiotics) ITCHING Review of Systems 2 Review of Systems: All systems reviewed & are unremarkable except as noted in HPI. All systems reviewed & are unremarkable except as noted in HPI and below PMFSH Past Medical History Medical History Sleep apnea Anxiety disorder ADHD (attention deficit hyperactivity disorder) Spinal cord cysts surgically removed 2011 Surgical History Surgical History History of back surgery H/O sinus surgery History of tonsillectomy and adenoidectomy Family History Family History Mother Diabetes mellitus Anxiety Depression Sibling Anxiety Depression Social History Social History Tobacco type: e-cigarettes/vaping Alcohol intake: current Alcohol use details: social Substance use: unknown Living arrangements: with family Gender identity (if verbalized by the patient): Female Exam 2 Narrative: GENERAL: Mildly anxious appearing, well-nourished, non-toxic, in no acute distress. HEAD: Normocephalic, atraumatic. RESPIRATORY: Airway patent, respirations nonlabored. Clear to auscultation bilaterally, no rales, rhonchi, wheezing. CARDIOVASCULAR: Regular rate and rhythm without murmurs, rubs, or gallops. ABDOMINAL: Soft, uterus gravid below, nontender lower. Very mild tenderness in epigastric region, nondistended. Normoactive BS. MUSCULOSKELETAL: Moves all extremities. No gross deformities. SKIN: Warm, dry, normal color. NEURO: A&O X3. Speech clear. PSYCHIATRIC: Appropriate mood and affect. Normal interaction. Course Vital Signs Vital signs: Vital Signs Temperature 97.9 F 08/10/24 14:41 Pulse Rate 100 08/10/24 14:41 Respiratory Rate 22 H 08/10/24 14:41 Blood Pressure 128/83 08/10/24 14:41 Pulse Oximetry 99 08/10/24 14:41 Oxygen Delivery Room Air 08/10/24 14:41 Temperature 97.9 F 08/10/24 14:41 Pulse Rate 100 08/10/24 14:41 Respiratory Rate 22 H 08/10/24 14:41 Blood Pressure 128/83 08/10/24 14:41 Pulse Oximetry 99 08/10/24 14:41 Oxygen Delivery Room Air 08/10/24 14:41 MDM - OB/Uterine Contractions MDM Narrative Medical decision making narrative: Patient presented to ED with 3 day history of epigastric abdominal pain, currently 15 weeks gestation. Vital signs are stable upon arrival. Patient is in no acute distress. I did utilized bedside ultrasound to visualize fetus, active heart tones, active movement. Patient felt extremely reassured by this. Laboratory studies were otherwise relatively unremarkable. She did have leukocytosis of 16, however this appears chronic and consistent with most recent records. H&H is stable. Normal LFTs and lipase. Patient without any right upper quadrant tenderness on exam. Low suspicion for gallbladder etiology. Suspicious for gastritis/GERD picture. Patient given dose of Pepcid in the ED and feeling extremely better on re-evaluation. States she is ready to go home. Will prescribe Pepcid for home. Discussed lifestyle and dietary modifications. Advised close follow-up with OBGYN for further evaluation. Given return precautions. Discharged in stable condition. Medical Records Attestation: I reviewed the patient's medical records. Lab Data Attestation: I reviewed the patient's lab results. 08/10/24 15:28 08/10/24 15:28 Labs: Lab Results 08/10/24 Range/Units 15:28 WBC 16.0 H (4.5-10.0) K/mm3 RBC 3.80 L (4.2-5.4) M/mm3 Hgb 11.7 L (12.0-15.0) g/dL Hct 35.0 L (37.0-47.0) % MCV 92.1 (80-100) fl MCH 30.8 (26-34) pg MCHC 33.4 (32-36) g/dl RDW 14.1 (11.5-14.5) % Plt Count 262 (150-375) k/mm3 MPV 9.6 (7.4-10.4) fl Immature Gran % (Auto) 1.8 H (0-0.5) % Neut % (Auto) 74.4 H (45.5-73.1) % Lymph % (Auto) 12.7 L (18.3-44.2) % [place] % (Auto) 7.6 (2.6-8.5) % Eos % (Auto) 2.8 (0-4.4) % Baso % (Auto) 0.7 (0.2-1.2) % Lymph # (Auto) 2.04 (0.9-3.2) K/mm3 [place] # (Auto) 1.2 H (0.1-0.6) K/mm3 Eos # (Auto) 0.5 H (0-0.3) K/mm3 Baso # (Auto) 0.1 (0.0-0.1) K/mm3 Abs Immat Gran (auto) 0.29 H (0.00-0.031) K/mm3 Absolute Neuts (auto) 11.9 H (1.3-6.7) K/mm3 Absolute Nucleated RBC 0.000 (0.0-0.012) K/mm3 Nucleated RBC % 0.0 (0.0-0.2) % Sodium 136 L (137-145) mmol/L Potassium 4.3 (3.4-5.0) mmol/L Chloride 106 (98-107) mmol/L Carbon Dioxide 23 (22-30) mmol/L Anion Gap 7 (4-12) mmol/L BUN 13 (7-17) mg/dL Creatinine 0.55 L (0.7-1.0) mg/dL Estim Creat Clear Calc Not Reportable Estimated GFR > 60 (59 - ) Glucose 92 (65-110) mg/dL Calcium 9.3 (8.4-10.2) mg/dL Total Bilirubin 0.3 (0.2-1.3) mg/dL AST 35 (14-36) U/L ALT 35 (6-35) U/L Alkaline Phosphatase 43 (38-126) U/L Total Protein 6.7 (6.3-8.2) g/dL Albumin 4.0 (3.5-5.1) g/dL Lipase 66 (23-300) U/L Discharge Plan Discharge Clinical Impression: Epigastric abdominal pain, 15 weeks gestation of Patient Disposition: Home Condition: Stable Instructions: Antibiotic Form, Diet for Stomach Ulcers and Gastritis (ED), GERD (Gastroesophageal Reflux Disease) (ED), Abdominal Pain in (ED) Additional Instructions: Take Pepcid as needed for epigastric pain, possible acid reflux. Recommend avoiding foods that are very greasy, spicy, acidic. Follow-up with your OBGYN for further evaluation. Return to the ED for worsening or severe pain, unable to keep down food or drink, chest pain, difficulty breathing, vaginal bleeding, or any other symptoms of concern. Patient Language: Telugu Prescriptions: New famotidine [Acid Controller] 20 mg tablet 20 mg PO DAILY PRN (Reason: Abdominal Discomfort) Qty: 30 0RF No Action chlordiazepoxide HCl 25 mg capsule 50 mg PO Q6H Qty: 16 0RF Rx Instructions: 50 mg qid for one day then 25 mg qid for two days then stop norethindrone-e.estradiol-iron [Aurovela Fe 1-20 (28)] 1 mg-20 mcg (21)/75 mg (7) tablet 1 tablet PO DAILY Qty: 84 0RF Follow-up/Referrals: UNKNOWN,DOCTOR [Primary Care Provider] - Time of Disposition: 16:45
== END 2024-08-10 16:50 | disposition home or self-care (01) ==
PROVIDERS: Emergency Provider Physician Assistant
DX: O26.892 Other specified pregnancy related conditions, second trimester (principal); R10.13 Epigastric pain; Z3A.15 15 weeks gestation of pregnancy
CPT/HCPCS: 36415; 80053; 83690; 85025; 99283; A9270

== ENCOUNTER 2024-08-15 15:40 | Outpatient (CLI) | payer OTHER, SELFPAY ==
[2024-08-15 15:54] LABS: Hematocrit 35.9 % (37.0-47.0); Hemoglobin 11.8 g/dL (12.0-15.0); Mean Corpuscular HGB Conc 32.9 g/dl (32-36); Mean Corpuscular Hemoglobin 30.2 pg (26-34); Mean Corpuscular Volume 91.8 fl (80-100); Mean Platelet Volume 9.2 fl (7.4-10.4); Platelet Count Result 265 k/mm3 (150-375); Red Blood Count 3.91 M/mm3 (4.2-5.4); Red Cell Distribution Width 13.9 % (11.5-14.5); White Blood Count 15.8 K/mm3 (4.5-10.0)
--- OUTSIDE RECORDS SUMMARY | 2024-08-15 16:31 | XMS_ITS | Encounter Summary ---
Author Organization [facility] Address [address] [place] [address] Care Team Providers Care Surveillance Camera Technician Name Role Phone Unavailable Primary Care Provider Unavailabl e Encounter Details Date Type Department Care Team (Late st Contact Info) Description 01/05/2000 Outpatient Historical [facility] Pediatric[facility] [place] [address] 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
--- OUTSIDE RECORDS SUMMARY | 2024-08-15 16:31 | XMS_ITS | Encounter Summary ---
Author Organization [facility] Address [address] [place] [address] Care Team Providers Care Screw Down Name Role Phone Unavailable Primary Care Provider Unavailabl e Encounter Details Date Type Department Care Team (Late st Contact Info) Description 02/05/2000 Outpatient Historical [facility] Pediatrics [place] [address] [facility] [address] [place] [address] Kashmir Gunn MD [address] [facility] [address] [place] [address] Social History Tobacco Use Types Packs/Day Years Used Date Smoking Tobacco: Never Assessed Comments Unknown Sex and Gender Information Value Date Recorded Sex Assigned at Not on file Legal Sex Female 2:44 AM TEST ENGINE 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
--- OUTSIDE RECORDS SUMMARY | 2024-08-15 16:31 | XMS_ITS | Encounter Summary ---
Author Organization [facility] Address [address] [place] [address] Care Team Providers Care Button Sewing Machine Operator Name Role Phone Unavailable Primary Care Provider Unavailabl e Encounter Details Date Type Department Care Team (Late st Contact Info) Description 08/15/1999 Outpatient Historical [facility] Pediatrics [place] [address] [place] [address] Moises Guerrero Social History Tobacco Use Types Packs/Day Years Used Date Smoking Tobacco: Never Assessed Comments Unknown Sex and Gender Information Value Date Recorded Sex Assigned at Not on file Legal Sex Female 2:44 AM LOG WASHER Gender Identity Not on file Sexual Orientation Not on file documented as of this encounter Plan of Treatment Not on file documented as of this encounter Visit Diagnoses Not on filedocumented in this encounter
--- OUTSIDE RECORDS SUMMARY | 2024-08-15 16:31 | XMS_ITS | Encounter Summary ---
Author Organization [facility] Address [address] [place] [address] Care Team Providers Care Emergency Services Dispatcher Name Role Phone Unavailable Primary Care Provider Unavailabl e Encounter Details Date Type Department Care Team (Late st Contact Info) Description 08/23/1998 Outpatient Historical [facility] Pediatrics [place] [address] [place] [address] Moises Guerrero Social History Tobacco Use Types Packs/Day Years Used Date Smoking Tobacco: Never Assessed Comments Unknown Sex and Gender Information Value Date Recorded Sex Assigned at Not on file Legal Sex Female 2:44 AM FIELD SEISMOLOGIST Gender Identity Not on file Sexual Orientation Not on file documented as of this encounter Plan of Treatment Not on file documented as of this encounter Visit Diagnoses Not on filedocumented in this encounter
--- OUTSIDE RECORDS SUMMARY | 2024-08-15 16:31 | XMS_ITS | Clinical Summary ---
Author Organization [facility] [place] Address [address] [place] [address] Phone Care Team Providers Care Train Control Electronic Technician Name Role Phone Unavailable Primary Care [...] on file Legal Sex Female 2:44 AM HEALTHCARE FINANCIAL ANALYST Gender Identity Not on file Sexual Orientation Not on file Occupation Industry Job Start Date Job End Date Not on file Not on file Not on file Not on file Last Filed Vital Signs Vital Sign Reading Time Taken Comments Blood Pressure 110/80 01/28/2016 11:54 AM HEALTHCARE FINANCIAL ANALYST Pulse 101 01/28/2016 11:54 AM HEALTHCARE FINANCIAL ANALYST Temperature 37.1 C (98.7 F) 01/28/2016 11:54 AM HEALTHCARE FINANCIAL ANALYST Respiratory Rate 18 01/28/2016 11:54 AM HEALTHCARE FINANCIAL ANALYST Oxygen Saturation 97% 01/28/2016 11:54 AM HEALTHCARE FINANCIAL ANALYST Inhaled Oxygen Concentration - - Weight 61.7 kg (136 lb) 01/28/2016 11:54 AM HEALTHCARE FINANCIAL ANALYST Height 160 cm (5' 3) 01/28/2016 11:54 AM HEALTHCARE FINANCIAL ANALYST Body Mass Index 24.09 01/28/2016 11:54 AM HEALTHCARE FINANCIAL ANALYST Plan of Treatment Health Maintenance Due Date Last Done Comments HPV VACCINES (1 - 3-dose series) 2012 DTAP/TDAP/TD VACCINES (1 - Tdap) 2016 HEPATITIS B VACCINES (1 of 3 - 19+ 3-dose series) 10/31 CERVICAL CANCER SCREENING 2018 HPV/Cotest (21-29) 2018 PAP SMEAR 2018 INFLUENZA VACCINE (#1) 2023
--- OUTSIDE RECORDS SUMMARY | 2024-08-15 16:31 | XMS_ITS | Encounter Summary ---
Author Organization [facility] Address [address] [place] [address] Care Team Providers Care Horse Groomer Name Role Phone Unavailable Primary Care Provider Unavailabl e Encounter Details Date Type Department Care Team (Late st Contact Info) Description 09/06/1998 Outpatient Historical [facility] Pediatrics [place] [address] [place] [address] Moises Guerrero Social History Tobacco Use Types Packs/Day Years Used Date Smoking Tobacco: Never Assessed Comments Unknown Sex and Gender Information Value Date Recorded Sex Assigned at Not on file Legal Sex Female 2:44 AM DETENTION 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
--- OUTSIDE RECORDS SUMMARY | 2024-08-15 16:31 | XMS_ITS ---
Author Organization [facility] Address [address] [place] [address] Phone Care Team Providers Care Barrel Leveler Name Role Phone Varun Chavez MD Primary Care Provider [facility] Status:Enrolled (Active) Start date:03/29/2024 Enrollment date:03/29/2024 Related social drivers of health:Intimate Partner Violence, Social Connections, Alcohol Use, Financial Resource Strain, Stress, Physical Activity, Food Insecurity, Transportation Needs, Housing Stability, Utilities Continued Care and Services Coordination
--- OUTSIDE RECORDS SUMMARY | 2024-08-15 16:31 | XMS_ITS | Encounter Summary ---
Author Organization [facility] Address [address] [place] [address] Care Team Providers Care Sap Grc Security Name Role Phone Unavailable Primary Care Provider Unavailabl e Encounter Details Date Type Department Care Team (Late st Contact Info) Description 06/12/1999 Outpatient Historical [facility] Pediatric[place] [address] [place] [address] Moises Guerrero Social History Tobacco Use Types Packs/Day Years Used Date Smoking Tobacco: Never Assessed Comments Unknown Sex and Gender Information Value Date Recorded Sex Assigned at Not on file Legal Sex Female 2:44 AM ARCH CUSHION SKIVING MACHINE 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
--- OUTSIDE RECORDS SUMMARY | 2024-08-15 16:31 | XMS_ITS | Encounter Summary ---
Author Organization [facility] Address [address] [place] [address] Care Team Providers Care Home Economist Name Role Phone Unavailable Primary Care Provider Unavailabl e Encounter Details Date Type Department Care Team (Late st Contact Info) Description 07/25/1999 Outpatient Historical [facility] Pediatrics [place] [address] [place] [address] Moises Guerrero Social History Tobacco Use Types Packs/Day Years Used Date Smoking Tobacco: Never Assessed Comments Unknown Sex and Gender Information Value Date Recorded Sex Assigned at Not on file Legal Sex Female 2:44 AM IN FLIGHT REFUELING 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
--- OUTSIDE RECORDS SUMMARY | 2024-08-15 16:31 | XMS_ITS | Encounter Summary ---
Author Organization [facility] Address [address] [place] [address] Care Team Providers Care Intraoperative Neuro Tech Name Role Phone Unavailable Primary Care Provider Unavailabl e Encounter Details Date Type Department Care Team (Late st Contact Info) Description 09/21/2000 Outpatient Historical [facility] [place] [address] [place] [address] Edgar Morton MD [address] [facility] [place] [address] Social History Tobacco Use Types Packs/Day Years Used Date Smoking Tobacco: Never Assessed Comments Unknown Sex and Gender Information Value Date Recorded Sex Assigned at Not on file Legal Sex Female 2:44 AM NEGOTIATOR Gender Identity Not on file Sexual Orientation Not on file documented as of this encounter Plan of Treatment Not on file documented as of this encounter Visit Diagnoses Not on filedocumented in this encounter
--- OUTSIDE RECORDS SUMMARY | 2024-08-15 16:31 | XMS_ITS | Clinical Summary ---
Author Organization [facility] Address [address] [place] [address] Phone Care Team Providers Care Water Inspector Name Role Phone Varun Chavez MD Primary [...] making a change Department associated with goal: [facility] Steps to [...] track(2021 2:25 PM CDT) Yes Sandra Rich, [facility] Insurance MEDICAID [employer] Care Teams Water Inspector Relationship Specialty Start Date End Date Varun Chavez MD [address] [place] [address] PCP - General Internal Medicine 11/13/21
--- OUTSIDE RECORDS SUMMARY | 2024-08-15 16:31 | XMS_ITS | Encounter Summary ---
Author Organization [facility] Address [address] [place] [address] Care Team Providers Care Delivery Person Name Role Phone Unavailable Primary Care Provider Unavailabl e Encounter Details Date Type Department Care Team (Late st Contact Info) Description 06/01/2000 Outpatient Historical [facility] [place] [address] [address] [place] [address] Kashmir Gunn MD [address] [facility] [address] [place] [address] Social History Tobacco Use Types Packs/Day Years Used Date Smoking Tobacco: Never Assessed Comments Unknown Sex and Gender Information Value Date Recorded Sex Assigned at Not on file Legal Sex Female 2:44 AM TRANSMITTER 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
--- OUTSIDE RECORDS SUMMARY | 2024-08-15 16:31 | XMS_ITS | Encounter Summary ---
Author Organization [facility] Address [address] [place] [address] Care Team Providers Care Acid Tank Liner Name Role Phone Unavailable Primary Care Provider Unavailabl e Encounter Details Date Type Department Care Team (Late st Contact Info) Description 05/29/1999 Outpatient Historical [facility] Pediatrics [place] [address] [place] [address] Moises Guerrero Social History Tobacco Use Types Packs/Day Years Used Date Smoking Tobacco: Never Assessed Comments Unknown Sex and Gender Information Value Date Recorded Sex Assigned at Not on file Legal Sex Female 2:44 AM PROGRESSIVE CARE UNIT REGISTERED NURSE Gender Identity Not on file Sexual Orientation Not on file documented as of this encounter Plan of Treatment Not on file documented as of this encounter Visit Diagnoses Not on filedocumented in this encounter
--- OUTSIDE RECORDS SUMMARY | 2024-08-15 16:31 | XMS_ITS | Encounter Summary ---
Author Organization [facility] Address [address] [place] [address] Care Team Providers Care Supplies Packer Name Role Phone Unavailable Primary Care Provider Unavailabl e Encounter Details Date Type Department Care Team (Late st Contact Info) Description 04/03/2000 Outpatient Historical [facility] Pediatrics [place] [address] [place] [address] Luis Conklin MD [address] [place] [address] Social History Tobacco Use Types Packs/Day Years Used Date Smoking Tobacco: Never Assessed Comments Unknown Sex and Gender Information Value Date Recorded Sex Assigned at Not on file Legal Sex Female 2:44 AM ACID PURIFIER Gender Identity Not on file Sexual Orientation Not on file documented as of this encounter Plan of Treatment Not on file documented as of this encounter Visit Diagnoses Not on filedocumented in this encounter
--- OUTSIDE RECORDS SUMMARY | 2024-08-15 16:31 | XMS_ITS | Encounter Summary ---
Author Organization [facility] Address [address] [place] [address] Care Team Providers Care Sales Center Associate Name Role Phone Unavailable Primary Care Provider Unavailabl e Encounter Details Date Type Department Care Team (Late st Contact Info) Description 08/23/1998 Outpatient Historical [facility] Pediatrics [place] [address] [place] [address] Moises Guerrero Social History Tobacco Use Types Packs/Day Years Used Date Smoking Tobacco: Never Assessed Comments Unknown Sex and Gender Information Value Date Recorded Sex Assigned at Not on file Legal Sex Female 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
--- OUTSIDE RECORDS SUMMARY | 2024-08-15 16:31 | XMS_ITS | Encounter Summary ---
Author Organization [facility] Address [address] [place] [address] Care Team Providers Care Sled Maker Name Role Phone Unavailable Primary Care Provider Unavailabl e Encounter Details Date Type Department Care Team (Late st Contact Info) Description 03/26/2000 Outpatient Historical [facility] [place] [address] [facility] [facility] [address] [place] [address] Kashmir Gunn MD [address] [facility] [address] [place] [address] Social History Tobacco Use Types Packs/Day Years Used Date Smoking Tobacco: Never Assessed Comments Unknown Sex and Gender Information Value Date Recorded Sex Assigned at Not on file Legal Sex Female 2:44 AM SIGN FABRICATOR Gender Identity Not on file Sexual Orientation Not on file documented as of this encounter Plan of Treatment Not on file documented as of this encounter Visit Diagnoses Not on filedocumented in this encounter
--- OUTSIDE RECORDS SUMMARY | 2024-08-15 16:31 | XMS_ITS | Encounter Summary ---
Author Organization [facility] Address 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
--- OUTSIDE RECORDS SUMMARY | 2024-08-15 16:32 | XMS_ITS | Encounter Summary ---
Author Organization [facility] Address [address] [place] [address] Care Team Providers Care Writing Center Director Name Role Phone Unavailable Primary Care Provider Unavailabl e Encounter Details Date Type Department Care Team (Late st Contact Info) Description 05/28/1998 Outpatient Historical [facility] Pediatrics [place] [address] [place] [address] Moises Guerrero Social History Tobacco Use Types Packs/Day Years Used Date Smoking Tobacco: Never Assessed Comments Unknown Sex and Gender Information Value Date Recorded Sex Assigned at Not on file Legal Sex Female 2:44 AM KNOCK OUT HAND Gender Identity Not on file Sexual Orientation Not on file documented as of this encounter Plan of Treatment Not on file documented as of this encounter Visit Diagnoses Not on filedocumented in this encounter
--- OUTSIDE RECORDS SUMMARY | 2024-08-15 16:32 | XMS_ITS | Encounter Summary ---
Author Organization [facility] Address [address] [place] [address] Care Team Providers Care Registered Veterinary Technician Name Role Phone Unavailable Primary Care Provider Unavailabl e Encounter Details Date Type Department Care Team (Late st Contact Info) Description 02/06/[address] 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
--- OUTSIDE RECORDS SUMMARY | 2024-08-15 16:32 | XMS_ITS | Encounter Summary ---
Author Organization [facility] Address [address] [place] [address] Care Team Providers Care Melting Supervisor Name Role Phone Unavailable Primary Care Provider Unavailabl e Encounter Details Date Type Department Care Team (Late st Contact Info) Description 05/31/1998 Outpatient Historical [facility] Pediatrics [address] [place] [address] Moises Guerrero Social History Tobacco Use Types Packs/Day Years Used Date Smoking Tobacco: Never Assessed Comments Unknown Sex and Gender Information Value Date Recorded Sex Assigned at Not on file Legal Sex Female 2:44 AM PREFORMS LAMINATOR Gender Identity Not on file Sexual Orientation Not on file documented as of this encounter Plan of Treatment Not on file documented as of this encounter Procedures Procedure Name Priority Date/Time Associated Diagnosis Comments CHG HEPATITIS B VACCINE PED ADOL IM 3 DOSE VFC 05/31/1998 12:00 AM PREFORMS LAMINATOR CHG DTAP VACCINE <7 YO IM VFC 05/31/1998 12:00 AM PREFORMS LAMINATOR documented in this encounter Visit Diagnoses Not on filedocumented in this encounter
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
--- OUTSIDE RECORDS SUMMARY | 2024-08-15 16:32 | XMS_ITS | Encounter Summary ---
Author Organization [facility] Address [address] [place] [address] Care Team Providers Care Hydro Plant Site Manager Name Role Phone Unavailable Primary Care Provider Unavailabl e Encounter Details Date Type Department Care Team (Late st Contact Info) Description 02/13/2003 Outpatient Historical [facility] [address] [place] [address] Murtaza Mcnulty MD [address] [place] [address] Social History Tobacco Use Types Packs/Day Years Used Date Smoking Tobacco: Never Assessed Comments Unknown Sex and Gender Information Value Date Recorded Sex Assigned at Not on file Legal Sex Female 2:44 AM SCAFFOLD BUILDER Gender Identity Not on file Sexual Orientation Not on file documented as of this encounter Plan of Treatment Not on file documented as of this encounter Visit Diagnoses Not on filedocumented in this encounter
--- OUTSIDE RECORDS SUMMARY | 2024-08-15 16:32 | XMS_ITS | Data Portability ---
Author Organization [place] [facility] [employer], Main Office Address [address] [place] [address] Assessment No assessment recorded. Plan of Treatment [...] 2016, 41(Shaw ppl.1 ):s13 -s22 Not Available [facility] (Lab) [address] [place], [address], 08/02/2020 21:21:32 08/03/1908/02/2020 TSH + free T4, serum thyroid-stim ulating hormone 1.870 uIU/m L 0.465- 4.680 Not Available [facility] (Lab) [address] [place], [address], 08/02/2020 18:47:19 08/03/1908/02/2020 T4, free, serum free T4 0.94 NG/dL 0.78-2 .19 Not Available [facility] (Lab) [address] [place], [address], 08/02/2020 18:13:37 08/03/19 21 08/02/2020 pregn elio [...] 19 6,800 TO 42,90 0 Not Available [facility] (Lab) [address] [place], [address], 08/02/2020 18:13:32 08/03/19 21 08/02/2020 vitam in D, 25-hy droxy , total , serum vd25oh 46.6 NG/mL 30-100 Vitam in D Statu s: Defic ient: <20 ng/mL Insuf ficie nt: 20-29 ng/mL Suffi cient : 30-10 0 ng/mL Not Available [facility] (Lab) [address] [place], [address], 08/02/2020 18:12:47 08/03/19 21 08/02/2020 lipid panel , serum cholesterol 127 mg/dL 140-19 9 low NIH JASON NSUS RECOM MENDA TION FOR GLENIS STERO L: ADULT CHILD LOW RISK: <200 <170 BORDE RLINE : <200- 239 ----- HIGH RISK: >240 >200 Not Available [facility] (Lab) [address] [place], [address], 08/02/2020 17:46:51 08/03/19 21 08/02/2020 lipid panel , serum triglyceride s 62 mg/dL 0-150 NIH JASON NSUS REPOR T RECOM MENDA TION FOR TRIGL YCERI RENA: ADULT CHILD LOW RISK: <150 ----- BODER LINE: 150-1 99 ----- HIGH RISK: >200 ----- Not Available [facility] (Lab) [address] [place], [address], 08/02/2020 17:46:51 08/03/19 21 08/02/2020 lipid panel , serum HDL cholesterol 53 mg/dL 40- Not Available [facility] (Lab) [address] [place], [address], 08/02/2020 17:46:51 08/03/19 21 08/02/2020 lipid panel [...] WILL NOT BE REPOR KELI. Not Available [facility] (Lab) [address] [place], [address], 08/02/2020 17:46:51 08/03/1908/02/2020 CMP, serum or plasm a sodium 139 mmol/ L 137-14 5 Not Available [facility] (Lab) [address] [place], [address], 08/02/2020 17:46:43 08/03/19 21 08/02/2020 CMP, serum or plasm a potassium 4.3 mmol/ L 3.5-5. 1 Not Available [facility] (Lab) [address] [place], [address], 08/02/2020 17:46:43 08/03/19 21 08/02/2020 CMP, serum or plasm a chloride 104 mmol/ L 98-107 Not Available [facility] (Lab) [address] [place], [address], 08/02/2020 17:46:43 08/03/19 21 08/02/2020 CMP, serum or plasm a carbon dioxide 29 mmol/ L 22-30 Not Available [facility] (Lab) [address] [place], [address], 08/02/2020 17:46:43 08/03/19 21 08/02/2020 CMP, serum or plasm a agap 10.3 mmol/ L 14-22 low Not Available [facility] (Lab) [address] [place], [address], 08/02/2020 17:46:43 08/03/19 21 08/02/2020 CMP, serum or plasm a glucose 75 mg/dL 70-99 Not Available [facility] (Lab) [address] [place], [address], 08/02/2020 17:46:43 08/03/19 21 08/02/2020 CMP, serum or plasm a BUN 10 mg/dL 8-19 Not Available [facility] (Lab) [address] [place], [address], 08/02/2020 17:46:43 08/03/19 21 08/02/2020 CMP, serum or plasm a creatinine 0.70 mg/dL 0.66-1 .25 Not Available [facility] (Lab) [address] [place], [address], 08/02/2020 17:46:43 08/03/19 21 08/02/2020 CMP, serum or plasm a GFR >60 Refer ence Range : [place] ge GFR Healt hy Adult : >60 [...] lator can be locat ed on the [facility] websi te: [email or web address] :[email or web address] ofess ional [email or web address] qi/gf r_cal culat or Not Available [facility] (Lab) [address] [place], [address], 08/02/2020 17:46:43 08/03/1908/02/2020 CMP, serum or plasm a alkaline phosphatase 51 U/L 38-126 Not Available [facility] (Lab) [address] [place], [address], 08/02/2020 17:46:43 08/03/1908/02/2020 CMP, serum or plasm a alanine aminotransfe rase 12 U/L 0-35 Not Available [facility] (Lab) [address] [place], [address], 08/02/2020 17:46:43 08/03/19 21 08/02/2020 CMP, serum or plasm a aspartate aminotransfe rase 21 U/L 15-37 Not Available [facility] (Lab) [address] [place], [address], 08/02/2020 17:46:43 08/03/19 21 08/02/2020 CMP, serum or plasm a bilirubin, total 0.40 mg/dL 0.20-1 .30 Not Available [facility] (Lab) [address] [place], [address], 08/02/2020 17:46:43 08/03/19 21 08/02/2020 CMP, serum or plasm a calcium 9.7 mg/dL 8.4-10 .2 Not Available [facility] (Lab) [address] [place], [address], 08/02/2020 17:46:43 08/03/1908/02/2020 CMP, serum or plasm a total protein 7.3 g/dL 6.3-8. 2 Not Available [facility] (Lab) [address] [place], [address], 08/02/2020 17:46:43 08/03/1908/02/2020 CMP, serum or plasm a albumin 4.7 g/dL 3.4-5. 0 Not Available [facility] (Lab) [address] [place], [address], 08/02/2020 17:46:43 08/03/1908/02/2020 CMP, serum or plasm a globulin 2.6 g/dL 2.6-4. 2 Not Available [facility] (Lab) [address] [place], [address], 08/02/2020 17:46:43 08/03/1908/02/2020 CMP, serum or plasm a A/G ratio 1.8 ratio 1.0-2. 0 Not Available [facility] (Lab) [address] [place], [address], 08/02/2020 17:46:43 08/03/19 21 08/02/2020 urina lysis compl ete, refle x cultu re color light- yellow Not Available [facility] (Lab) [address] [place], [address], 08/02/2020 17:27:27 08/03/19 21 08/02/2020 urina lysis compl ete, refle x cultu re appear turbid abnormal Not Available [facility] (Lab) [address] [place], [address], 08/02/2020 17:27:27 08/03/19 21 08/02/2020 urina lysis compl ete, refle x cultu re specific gravity 1.021 1.001- 1.030 Not Available [facility] (Lab) [address] [place], [address], 08/02/2020 17:27:27 08/03/19 21 08/02/2020 urina lysis compl ete, refle x cultu re pH 7.5 pH_un its 5.0-9. 0 Not Available [facility] (Lab) [address] [place], [address], 08/02/2020 17:27:27 08/03/19 21 08/02/2020 urina lysis compl ete, refle x cultu re leukocytes negati ve carmencita/u L negati ve- Not Available [facility] (Lab) [address] [facility] [place], [address], 08/02/2020 17:27:27 08/03/19 21 08/02/2020 urina lysis compl ete, refle x cultu re nitrite negati ve negati ve- Not Available [facility] (Lab) [address] [place], [address], 08/02/2020 17:27:27 08/03/19 21 08/02/2020 urina lysis compl ete, refle x cultu re protein negati ve mg/dL negati ve- Not Available [facility] (Lab) [address] [place], [address], 08/02/2020 17:27:27 08/03/19 21 08/02/2020 urina lysis compl ete, refle x cultu re glucose normal mg/dL normal - Not Available [facility] (Lab) [address] [place], [address], 08/02/2020 17:27:27 08/03/19 21 08/02/2020 urina lysis compl ete, refle x cultu re ketones negati ve mg/dL negati ve- Not Available [facility] (Lab) [address] [place], [address], 08/02/2020 17:27:27 08/03/19 21 08/02/2020 urina lysis compl ete, refle x cultu re urobilinogen normal mg/dL normal - Not Available [facility] (Lab) [address] [place], [address], 08/02/2020 17:27:27 08/03/19 21 08/02/2020 urina lysis compl ete, refle x cultu re bilirubin negati ve mg/dL negati ve- Not Available [facility] (Lab) [address] [place], [address], 08/02/2020 17:27:27 08/03/19 21 08/02/2020 urina lysis compl ete, refle x cultu re blood negati ve mg/dL negati ve- Not Available [facility] (Lab) [address] [place], [address], 08/02/2020 17:27:27 06/0408/02/2020 urina lysis compl ete, refle x cultu re white blood cells 0-8 /i??h pfi?? 0-8 Not Available [facility] (Lab) [address] [place], [address], 08/02/2020 17:27:27 08/03/19 21 08/02/2020 urina lysis compl ete, refle x cultu re red blood cells 0-4 /i??h pfi?? 0-4 Not Available [facility] (Lab) [address] [place], [address], 08/02/2020 17:27:27 08/03/19 21 08/02/2020 urina lysis compl ete, refle x cultu re bacteria none Not Available [facility] (Lab) [address] [place], [address], 08/02/2020 17:27:27 08/03/19 21 08/02/2020 urina lysis compl ete, refle x cultu re squamous epithelial modera te /i??l pfi?? abnormal Not Available [facility] (Lab) [address] [place], [address], 08/02/2020 17:27:27 08/03/19 21 08/02/2020 urina lysis compl ete, refle x cultu re amorphous crystal occasi onal /i??h pfi?? abnormal Not Available [facility] (Lab) [address] [place], [address], 08/02/2020 17:27:27 08/03/19 21 08/02/2020 CBC w/ auto diff white blood cells 11.5 x10'3 /uL 4.2-10 .8 high Not Available [facility] (Lab) [address] [place], [address], 08/02/2020 16:48:23 08/03/19 21 08/02/2020 CBC w/ auto diff red blood cells 4.54 x10'6 /uL 3.80-5 .20 Not Available [facility] (Lab) [address] [place], [address], 08/02/2020 16:48:23 08/03/19 21 08/02/2020 CBC w/ auto diff hemoglobin 13.4 g/dL 12.0-1 5.6 Not Available [facility] (Lab) [address] [place], [address], 08/02/2020 16:48:23 08/03/19 21 08/02/2020 CBC w/ auto diff hematocrit 40.3 % 35.7-4 5.7 Not Available [facility] (Lab) [address] [place], [address], 08/02/2020 16:48:23 08/03/19 21 08/02/2020 CBC w/ auto diff mean red cell volume 88.8 fL 82.0-9 9.0 Not Available [facility] (Lab) [address] [place], [address], 08/02/2020 16:48:23 08/03/19 21 08/02/2020 CBC w/ auto diff mean red cell hemoglobin 29.5 pg 27.0-3 3.0 Not Available [facility] (Lab) [address] [place], [address], 08/02/2020 16:48:23 08/03/19 21 08/02/2020 CBC w/ auto diff mean RBC HGB concentratio n 33.3 g/dL 31.0-3 6.0 Not Available [facility] (Lab) [address] [place], [address], 08/02/2020 16:48:23 08/03/19 21 08/02/2020 CBC w/ auto diff red cell distribution width 13.2 % 11.8-1 5.5 Not Available [facility] (Lab) [address] [place], [address], 08/02/2020 16:48:23 08/03/19 21 08/02/2020 CBC w/ auto diff platelets 304 x10'3 /uL 150-40 0 Not Available [facility] (Lab) [address] [place], [address], 08/02/2020 16:48:23 08/03/19 21 08/02/2020 CBC w/ auto diff mean platelet volume 10.1 fL 9.0-12 .4 Not Available [facility] (Lab) [address] [place], [address], 08/02/2020 16:48:23 08/03/19 21 08/02/2020 CBC w/ auto diff neutrophils 66.5 % 39.0-7 2.0 Not Available [facility] (Lab) [address] [place], [address], 08/02/2020 16:48:23 08/03/19 21 08/02/2020 CBC w/ auto diff lymphocytes 18.2 % 16.0-4 7.0 Not Available [facility] (Lab) [address] [place], [address], 08/02/2020 16:48:23 08/03/19 21 08/02/2020 CBC w/ auto diff monocytes 8.9 % 5.0-12 .0 Not Available [facility] (Lab) [address] [place], [address], 08/02/2020 16:48:23 08/03/19 21 08/02/2020 CBC w/ auto diff eosinophils 4.8 % 1.0-7. 0 Not Available [facility] (Lab) [address] [place], [address], 08/02/2020 16:48:23 08/03/19 21 08/02/2020 CBC w/ auto diff basophils 0.8 % 0.0-2. 0 Not Available [facility] (Lab) [address] [place], [address], 08/02/2020 16:48:23 08/03/19 21 08/02/2020 CBC w/ auto diff immature granulocytes 0.8 % 0.00-0 .50 high Not Available [facility] (Lab) [address] [place], [address], 08/02/2020 16:48:23 08/03/19 21 08/02/2020 CBC w/ auto diff neutrophils, absolute count 7.66 x10'3 /uL 1.5-8. 0 Not Available [facility] (Lab) [address] [place], [address], 08/02/2020 16:48:23 08/03/19 21 08/02/2020 CBC w/ auto diff lymphocytes, absolute count 2.09 x10'3 /uL 1.07-3 .43 Not Available [facility] (Lab) [address] [place], [address], 08/02/2020 16:48:23 08/03/19 21 08/02/2020 CBC w/ auto diff monocytes, absolute count 1.03 x10'3 /uL 0.29-0 .99 high Not Available [facility] (Lab) [address] [place], [address], 08/02/2020 16:48:23 08/03/19 21 08/02/2020 CBC w/ auto diff eosinophils, absolute count 0.55 x10'3 /uL 0.02-0 .53 high Not Available [facility] (Lab) [address] [place], [address], 08/02/2020 16:48:23 08/03/19 21 08/02/2020 CBC w/ auto diff basophils, absolute count 0.09 x10'3 /uL 0.01-0 .08 high Not Available [facility] (Lab) [address] [place], [address], 08/02/2020 16:48:23 08/03/19 21 08/02/2020 CBC w/ auto diff immature granulocytes ,absolute 0.09 x10'3 /uL 0.00-0 .05 high Not Available [facility] (Lab) [address] [place], [address], 08/02/2020 16:48:23 08/03/19 21 08/02/2020 CBC w/ auto diff nucleated red blood cells 0.0 % -0 Not Available [facility] (Lab) [address] [place], [address], 08/02/2020 16:48:23 08/03/19 21 08/02/2020 CBC w/ auto diff NRBC# 0.00 x10'3 /uL Not Available [facility] (Lab) [address] [place], [address], 08/02/2020 16:48:23 08/27/19 21 08/27/2020 CT, NG, TRICH VAG BY LATISHA chlamydia by LATISHA negati ve negati ve Not Available [facility] ([facility]) [address] [place], [address], 08/28/2020 06:12:24 08/27/1908/27/2020 CT, NG, TRICH VAG BY LATISHA gonococcus by LATISHA negati ve negati ve Not Available [facility] ([facility]) [address] [place], [address], 08/28/2020 06:12:24 08/27/19 21 08/27/2020 CT, NG, TRICH VAG BY LATISHA trich vag by LATISHA negati ve negati ve Not Available [facility] ([facility]) [address] [place], [address], 08/28/2020 06:12:24 08/28/19 21 08/27/2020 pregn elio test, urine HCG negati ve Not Available [facility] [address], [place], [address], 08/26/2020 16:54:07 08/14/19 21 08/12/2020 US, pelvi s, trans abdom inal + trans vagin al [facility] [address], [place] [address] [phone] [employer] t Name: CHARIS ODONNELL Access ion #: [id number] Sex: F : 1995 0 Locati [...] the pelvis . Page 1 of 2 [facility] Jordan velez Name: CHARIS ODONNELL Access ion #: [id number] Sex: F : 1995 0 Exam [...] 7:23 AM (CT) Page 2 of 2 [id number] [facility] (Imaging) [address] [place], [address], 04/29/2022 20:21:16 Result Notes None recorded. Problems Name Problem SNOMED Code Status Onset Date Resolution Date Notes Provider Name and Address Organization Details Recorded Time Depressive disorder 90044860 Active Not Available [facility] 3 20:20:07 Anxiety 97539768 Active 021 Not Available [facility] 3 20:20:07 Problem Notes None recorded. Procedures Surgical History Date Name Laterality Status Provider Name and Address Organization Details Recorded Time Sinus Surgery completed Not Available [facility] th 04/29/2022 20:19:31 Back Surgery completed Not Available [facility] h 04/29/2022 20:19:31 Remove tonsils and adenoids completed Not Available [facility] 04/29/2022 20:19:31 Imaging Results None recorded. Procedure Notes None recorded. Medical Equipment None Reported. Allergies Allergen ID Allergen Name Allergen Category Reaction Reaction Severity Criticality Documentation Date Start Date Code Code System Note Provider Name and Address Organization Details Recorded Time 33953 Substance with sulfonami de structure and antibacte rial mechanism of action (substanc e) medicatio n rash Not available Not available 04/29/2022 99244 8003 SNOMED Not Available [facility] 3 20:21:14 Medications Name Sig Start Date [...] % 100 % 92 /min 98.1 [degF] 62530.1 9 g 112 mm[Hg] 82 mm[Hg] Not Available [facility] 3 20:19:57 Date Recorded Body mass index (BMI) Body height Oxygen saturation Oxygen saturation in Arterial blood by Pulse oximetry Heart rate Body temperature Body weight Systolic blood pressure Diastolic blood pressure Provider Name and Address Organization Details Last Updated DateTime 1 28 kg/m2 160.02 cm 98 % 98 % 85 /min 98 [degF] 84118.5 9 g 116 mm[Hg] 80 mm[Hg] Not Available [facility] 3 20:19:57 Date Recorded Body mass index (BMI) Body height Body weight Systolic blood pressure Diastolic blood pressure Provider Name and Address Organization Details Last Updated DateTime 08/26/2020 27.8 kg/m2 160.02 cm 20694 g 120 mm[Hg] 80 mm[Hg] Not Available [facility] 3 20:19:57 Date Recorded Body mass index (BMI) Body height Body temperature Body weight Systolic blood pressure Diastolic blood pressure Provider Name and Address Organization Details Last Updated DateTime 28.3 kg/m2 160.02 cm 97.9 [degF] 09234.7 8 g 119 mm[Hg] 78 mm[Hg] Not Available [facility] 3 20:19:57 Social History Question Answer Notes LastModified by 3D Forms Details LastModified Time Tobacco Smoking Status Never Smoker Not Available [facility] 04/29/2022 20:19:29 What Is Your Level Of Caffeine Consumption? Moderate [id number] Information not available 04/29/2022 How Much Tobacco Do You Chew? None [id number].[id number] Information not available 04/29/2022 In The 14 Days Before Symptom Onset, Have You Had Close Contact With A Laboratory-confirm ed COVID-19 While That Case Was Ill? No [id number].[id number] Information not available 04/29/2022 In The 14 Days Before Symptom Onset, Have You Had Close Contact With A Person Who Is Under Investigation For COVID-19 While That Person Was Ill? No MIGRATION.[id number] Information not available 04/29/2022 What Type Of Diet Are You Following? REGULAR MIGRATION.[id number] 3958 Information not available 04/29/2022 Which Illicit Or Recreational Drugs Have You Used? No MIGRATION.[id number] [id number] Information not available 04/29/2022 Are There Any Guns Present In Your Home? No MIGRATION.[id number] 9363 Information not available 04/29/2022 What Was The Date Of Your Most Recent Tobacco Screening? 08/09/2020 MIGRATION.[id number] 3587 Information not available 04/29/2022 Are You Passively Exposed To Smoke? Yes MIGRATION.793559 9321 Information not available 04/29/2022 How Much Tobacco Do You Smoke? No MIGRATION.586246 4958 Information not available 04/29/2022 Sex: Female Functional Status Question Answer Note LastModified by Post.Bid.Ship ion Details LastModified Time What is your level of alcohol consumption? None MIGRATION.14636 70236 Information not available 04/29/2022 Do you or have you ever used smokeless tobacco? Never used smokeless tobacco MIGRATION.75466 82163 Information not available 04/29/2022 Do you or have you ever used e-cigarettes or vape? Current user of electronic cigarettes Vape occasionally MIGRATION.17681 95060 Information not available 04/29/2022 What is your exercise level? None MIGRATION.30524 83662 Information not available 04/29/2022 Mental Status None recorded. Family History Relationship Description Onset Age of this Age Resolved Age Notes LastModified by Organization Details LastModified Time Mother Diabetes mellitus [id number] Not available 04/29/2022 20:19:32 Mother Anxiety disorder [id number].892 [id number] Not available 04/29/2022 20:19:32 Mother Depressive disorder [id number].010 [id number] Not available 04/29/2022 20:19:32 Sister Anxiety disorder MIGRATION.395 [id number] Not available 04/29/2022 20:19:32 Sister Anxiety disorder MIGRATION.450 [id number] Not available 04/29/2022 20:19:32 Sister Depressive disorder MIGRATION.787 [id number] Not available 04/29/2022 20:19:33 Sister Depressive disorder MIGRATION.099 [id number] Not available 04/29/2022 20:19:33 Medical History Condition Response CHICKENPOX Y SLEEP APNEA Y BACK / NECK PROBLEMS Y DEPRESSION (INCLUDING POST ) Y HAVE YOU BEEN HOSPITALIZED OR SEEN IN [facility] IN THE PAST YEAR ? Y ECZEMA Y SKIN PROBLEMS Y HEARTBURN / REFLUX Y ANXIETY DISORDER Y Gynecological History Statement/Question Response Abnormal Pap [...] SNOMED-CT Code Diagnosis ICD10 Code Diagnosis Note [id number] Cristine kelly MD [facility] [address] [place] [address] 08/02/2020 00:00:00 08/02/2020 15:57:22 [id number] Cristine kelly MD [facility] [address], [address] [address] 08/09/2020 00:00:00 08/09/2020 17:12:13 [id number] [facility] _ATHENA_M IGRATION_ DEFAULT_1 _1 , 08/26/2020 00:00:00 08/26/2020 18:24:25 [id number] [facility] _ATHENA_M IGRATION_ DEFAULT_1 _1 , 11/25/2020 00:00:00 11/25/2020 16:23:15 [id number] Annabelle Denney NP [facility] [address] [place] [address] [address] 08/13/2020 00:00:00 08/13/2020 11:06:48 [id number] Annabelle Denney NP [facility] [address] [address] 10/02/2020 00:00:00 10/02/2020 18:04:03 [id number] Annabelle Denney NP [facility] [address] [place] [address] [address] 10/30/2020 00:00:00 10/30/2020 14:54:00 [id number] Annabelle Denney NP [facility] [address] [place] [address] [address] 11/28/2020 00:00:00 11/28/2020 15:54:58 [id number] Annabelle Denney NP [facility] [address] [place] [address] [address] 12/18/2020 00:00:00 12/18/2020 16:46:49 Health Concerns Section Related Observation LastModified by Organization Detai ls LastModified Time None Recorded Concern Status LastModified by Organization Details LastModified Time None Recorded Advance Directives Directive None Recorded Payers Insurance Date Sequence Insurance Name Policy Number Policy Sharma Covered Member ID Sharma Member ID Guarantor Name 06/28/2023 1 [facility] (MEDICAID HMO) [id number] Charis Peres [id number] Charis Peres OBGyn Episode No OBEpisode recorded.
--- OUTSIDE RECORDS SUMMARY | 2024-08-15 16:32 | XMS_ITS | Encounter Summary ---
Author Organization [facility] Address 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
--- OUTSIDE RECORDS SUMMARY | 2024-08-15 16:32 | XMS_ITS | Encounter Summary ---
Author Organization [facility] Address [address] [place] [address] Care Team Providers Care Biology Specimen Technician Name Role Phone Unavailable Primary Care Provider Unavailabl e Encounter Details Date Type Department Care Team (Late st Contact Info) Description 03/05/2001 Outpatient Historical [facility] [place] [address] [facility] [address] [place] [address] Luis Conklin MD [address] [place] [address] Social History Tobacco Use Types Packs/Day Years Used Date Smoking Tobacco: Never Assessed Comments Unknown Sex and Gender Information Value Date Recorded Sex Assigned at Not on file 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
--- OUTSIDE RECORDS SUMMARY | 2024-08-15 16:32 | XMS_ITS | Encounter Summary ---
Author Organization [facility] Address [address] [place] [address] Care Team Providers Care Upper Marker Name Role Phone Unavailable Primary Care Provider Unavailabl e Encounter Details Date Type Department Care Team (Late st Contact Info) Description 01/06/[address] 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
--- OUTSIDE RECORDS SUMMARY | 2024-08-15 16:32 | XMS_ITS | Encounter Summary ---
Author Organization [facility] Address 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
--- OUTSIDE RECORDS SUMMARY | 2024-08-15 16:32 | XMS_ITS | Encounter Summary ---
Author Organization [facility] Address [address] [place] [address] Care Team Providers Care Client Technical Support Associate Name Role Phone Unavailable Primary Care Provider Unavailabl e Encounter Details Date Type Department Care Team (Late st Contact Info) Description 06/06/2001 Outpatient Historical [facility] Pediatrics [place] [address] [facility] [address] [place] [address] Kashmir Gunn MD [address] [facility] [address] [place] [address] Social History Tobacco Use Types Packs/Day Years Used Date Smoking Tobacco: Never Assessed Comments Unknown Sex and Gender Information Value Date Recorded Sex Assigned at Not on file Legal Sex Female 2:44 AM INDIRECT SALES EXEC Gender Identity Not on file Sexual Orientation Not on file documented as of this encounter Plan of Treatment Not on file documented as of this encounter Visit Diagnoses Not on filedocumented in this encounter
--- OUTSIDE RECORDS SUMMARY | 2024-08-15 16:32 | XMS_ITS | Encounter Summary ---
Author Organization [facility] Address [address] [place] [address] Care Team Providers Care Office Technician Name Role Phone Unavailable Primary Care Provider Unavailabl e Encounter Details Date Type Department Care Team (Late st Contact Info) Description 04/29/1999 Outpatient Historical [facility] Pediatrics [place] [address] [place] [address] Moises Guerrero Social History Tobacco Use Types Packs/Day Years Used Date Smoking Tobacco: Never Assessed Comments Unknown Sex and Gender Information Value Date Recorded Sex Assigned at Not on file Legal Sex Female 2:44 AM ATTENDING ANESTHESIOLOGIST Gender Identity Not on file Sexual Orientation Not on file documented as of this encounter Plan of Treatment Not on file documented as of this encounter Visit Diagnoses Not on filedocumented in this encounter
--- OUTSIDE RECORDS SUMMARY | 2024-08-15 16:32 | XMS_ITS | Encounter Summary ---
Author Organization [facility] Address [address] [place] [address] Care Team Providers Care Ship Self Defense System Mk1 Operator Name Role Phone Unavailable Primary Care Provider Unavailabl e Encounter Details Date Type Department Care Team (Late st Contact Info) Description 12/17/1998 Outpatient Historical [facility] Pediatrics [place] [address] [place] [address] Moises Guerrero Social History Tobacco Use Types Packs/Day Years Used Date Smoking Tobacco: Never Assessed Comments Unknown Sex and Gender Information Value Date Recorded Sex Assigned at Not on file Legal Sex Female 2:44 AM RED HAT ENGINEER Gender Identity Not on file Sexual Orientation Not on file documented as of this encounter Plan of Treatment Not on file documented as of this encounter Visit Diagnoses Not on filedocumented in this encounter
--- OUTSIDE RECORDS SUMMARY | 2024-08-15 16:32 | XMS_ITS | Encounter Summary ---
Author Organization [facility] Address [address] [place] [address] Care Team Providers Care State Pilot Name Role Phone Unavailable Primary Care Provider Unavailabl e Encounter Details Date Type Department Care Team (Late st Contact Info) Description 03/22/2002 Outpatient Historical [facility] Pediatrics [address] [place] [address] Murtaza Mcnulty MD [address] [place] [address] Social History Tobacco Use Types Packs/Day Years Used Date Smoking Tobacco: Never Assessed Comments Unknown Sex and Gender Information Value Date Recorded Sex Assigned at Not on file Legal Sex Female 2:44 AM EVALUATION SPECIALIST Gender Identity Not on file Sexual Orientation Not on file documented as of this encounter Plan of Treatment Not on file documented as of this encounter Visit Diagnoses Not on filedocumented in this encounter
--- OUTSIDE RECORDS SUMMARY | 2024-08-15 16:32 | XMS_ITS | Encounter Summary ---
Author Organization [facility] Address [address] [place] [address] Care Team Providers Care Mechanical Intern Name Role Phone Unavailable Primary Care Provider Unavailabl e Encounter Details Date Type Department Care Team (Late st Contact Info) Description 11/28/1998 Outpatient Historical [facility] Pediatrics [place] [address] [place] [address] Moises Guerrero Social History Tobacco Use Types Packs/Day Years Used Date Smoking Tobacco: Never Assessed Comments Unknown Sex and Gender Information Value Date Recorded Sex Assigned at Not on file Legal Sex Female 2:44 AM CHEMICAL ENGINEERING TECHNOLOGIST Gender Identity Not on file Sexual Orientation Not on file documented as of this encounter Plan of Treatment Not on file documented as of this encounter Visit Diagnoses Not on filedocumented in this encounter
--- OUTSIDE RECORDS SUMMARY | 2024-08-15 16:32 | XMS_ITS | Encounter Summary ---
Author Organization [facility] Address [address] [place] [address] Care Team Providers Care Grant Specialist Name Role Phone Unavailable Primary Care Provider Unavailabl e Encounter Details Date Type Department Care Team (Late st Contact Info) Description 11/28/1998 Outpatient Historical [facility] Pediatrics [place] [address] [place] [address] Moises Guerrero Social History Tobacco Use Types Packs/Day Years Used Date Smoking Tobacco: Never Assessed Comments Unknown Sex and Gender Information Value Date Recorded Sex Assigned at Not on file Legal Sex Female 2:44 AM CABLE 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
--- OUTSIDE RECORDS SUMMARY | 2024-08-15 16:32 | XMS_ITS | Encounter Summary ---
Author Organization [facility] Address [address] [place] [address] Care Team Providers Care Box Stapler Name Role Phone Unavailable Primary Care Provider Unavailabl e Encounter Details Date Type Department Care Team (Late st Contact Info) Description 11/04/[address] [facility] Pediatrics [address] [place] [address] Murtaza Mcnulty MD [address] [place] [address] Social History Tobacco Use Types Packs/Day Years Used Date Smoking Tobacco: Never Assessed Comments Unknown Sex and Gender Information Value Date Recorded Sex Assigned at Not on file Legal Sex Female 2:44 AM DYE WEIGHER HELPER Gender Identity Not on file Sexual Orientation Not on file documented as of this encounter Plan of Treatment Not on file documented as of this encounter Visit Diagnoses Not on filedocumented in this encounter
--- OUTSIDE RECORDS SUMMARY | 2024-08-15 16:32 | XMS_ITS | Encounter Summary ---
Author Organization [facility] Address [address] [place] [address] Care Team Providers Care Welcome Desk Agent Name Role Phone Unavailable Primary Care Provider Unavailabl e Encounter Details Date Type Department Care Team (Late st Contact Info) Description 01/07/1998 Outpatient Historical [facility] Pediatrics [place] [address] [place] [address] Moises Guerrero Social History Tobacco Use Types Packs/Day Years Used Date Smoking Tobacco: Never Assessed Comments Unknown Sex and Gender Information Value Date Recorded Sex Assigned at Not on file Legal Sex Female 2:44 AM COMPUTER NETWORKING INSTRUCTOR ADJUNCT Gender Identity Not on file Sexual Orientation Not on file documented as of this encounter Plan of Treatment Not on file documented as of this encounter Visit Diagnoses Not on filedocumented in this encounter
--- OUTSIDE RECORDS SUMMARY | 2024-08-15 16:32 | XMS_ITS | Encounter Summary ---
Author Organization [facility] Address [address] [place] [address] Care Team Providers Care Inside Sales Account Representative Name Role Phone Unavailable Primary Care Provider Unavailabl e Encounter Details Date Type Department Care Team (Late st Contact Info) Description 05/06/2004 Outpatient Historical [facility] Pediatrics [address] [place] [address] Murtaza Mcnulty MD [address] [place] [address] Social History Tobacco Use Types Packs/Day Years Used Date Smoking Tobacco: Never Assessed Comments Unknown Sex and Gender Information Value Date Recorded Sex Assigned at Not on file Legal Sex Female 2:44 AM SOFTWARE SUPPORT ANALYST Gender Identity Not on file Sexual Orientation Not on file documented as of this encounter Plan of Treatment Not on file documented as of this encounter Visit Diagnoses Not on filedocumented in this encounter
--- OUTSIDE RECORDS SUMMARY | 2024-08-15 16:32 | XMS_ITS | Encounter Summary ---
Author Organization [facility] Address [address] [place] [address] Care Team Providers Care School Leader Name Role Phone Unavailable Primary Care Provider Unavailabl e Encounter Details Date Type Department Care Team (Late st Contact Info) Description 02/12/2004 Outpatient Historical [facility] Pediatrics [address] [place] [address] Murtaza Mcnulty MD [address] [place] [address] Social History Tobacco Use Types Packs/Day Years Used Date Smoking Tobacco: Never Assessed Comments Unknown Sex and Gender Information Value Date Recorded Sex Assigned at Not on file Legal Sex Female 2:44 AM COMPUTER NUMERICAL CONTROL PROGRAMMER Gender Identity Not on file Sexual Orientation Not on file documented as of this encounter Plan of Treatment Not on file documented as of this encounter Visit Diagnoses Not on filedocumented in this encounter
--- OUTSIDE RECORDS SUMMARY | 2024-08-15 16:32 | XMS_ITS | Encounter Summary ---
Author Organization [facility] Address [address] [place] [address] Care Team Providers Care Automotive Power Electronics Engineer Name Role Phone Unavailable Primary Care Provider Unavailabl e Encounter Details Date Type Department Care Team (Late st Contact Info) Description 07/09/2004 Outpatient Historical [facility] Pediatrics [address] [place] [address] Murtaza Mcnulty MD [address] [place] [address] Social History Tobacco Use Types Packs/Day Years Used Date Smoking Tobacco: Never Assessed Comments Unknown Sex and Gender Information Value Date Recorded Sex Assigned at Not on file Legal Sex Female 2:44 AM SPRING UP SUPERVISOR Gender Identity Not on file Sexual Orientation Not on file documented as of this encounter Plan of Treatment Not on file documented as of this encounter Visit Diagnoses Not on filedocumented in this encounter
--- OUTSIDE RECORDS SUMMARY | 2024-08-15 16:32 | XMS_ITS | Encounter Summary ---
Author Organization [facility] Address [address] [place] [address] Care Team Providers Care Instrument Person Name Role Phone Unavailable Primary Care Provider Unavailabl e Encounter Details Date Type Department Care Team (Late st Contact Info) Description 08/25/2001 Outpatient Historical [facility] Pediatrics [place] [address] [facility] [address] [place] [address] Kashmir Gunn MD [address] [facility] [address] [place] [address] Social History Tobacco Use Types Packs/Day Years Used Date Smoking Tobacco: Never Assessed Comments Unknown Sex and Gender Information Value Date Recorded Sex Assigned at Not on file Legal Sex Female 2:44 AM QUALITY ASSURANCE Gender Identity Not on file Sexual Orientation Not on file documented as of this encounter Plan of Treatment Not on file documented as of this encounter Visit Diagnoses Not on filedocumented in this encounter
--- OUTSIDE RECORDS SUMMARY | 2024-08-15 16:32 | XMS_ITS | Encounter Summary ---
Author Organization [facility] Address [address] [place] [address] Care Team Providers Care 911 Dispatcher Name Role Phone Unavailable Primary Care Provider Unavailabl e Encounter Details Date Type Department Care Team (Late st Contact Info) Description 01/09/2004 Outpatient Historical [facility] Pediatrics [address] [place] [address] Murtaza Mcnulty MD [address] [place] [address] Social History Tobacco Use Types Packs/Day Years Used Date Smoking Tobacco: Never Assessed Comments Unknown Sex and Gender Information Value Date Recorded Sex Assigned at Not on file Legal Sex Female 2:44 AM MEDICAL ACCOUNTANT Gender Identity Not on file Sexual Orientation Not on file documented as of this encounter Plan of Treatment Not on file documented as of this encounter Visit Diagnoses Not on filedocumented in this encounter
--- OUTSIDE RECORDS SUMMARY | 2024-08-15 16:32 | XMS_ITS | Encounter Summary ---
Author Organization [facility] Address [address] [place] [address] Care Team Providers Care Rubber Compounder Name Role Phone Unavailable Primary Care Provider Unavailabl e Encounter Details Date Type Department Care Team (Late st Contact Info) Description 06/04/2003 Outpatient Historical [facility] Pediatrics [address] [place] [address] Murtaza Mcnulty MD [address] [place] [address] Social History Tobacco Use Types Packs/Day Years Used Date Smoking Tobacco: Never Assessed Comments Unknown Sex and Gender Information Value Date Recorded Sex Assigned at Not on file Legal Sex Female 2:44 AM VOCATIONAL COORDINATOR Gender Identity Not on file Sexual Orientation Not on file documented as of this encounter Plan of Treatment Not on file documented as of this encounter Visit Diagnoses Not on filedocumented in this encounter
--- OUTSIDE RECORDS SUMMARY | 2024-08-15 16:32 | XMS_ITS | Encounter Summary ---
Author Organization [facility] Address [address] [place] [address] Care Team Providers Care Staff Genetic Counselor Name Role Phone Unavailable Primary Care Provider Unavailabl e Encounter Details Date Type Department Care Team (Late st Contact Info) Description 12/03/1998 Outpatient Historical [facility] Pediatrics [place] [address] [place] [address] Moises Guerrero Social History Tobacco Use Types Packs/Day Years Used Date Smoking Tobacco: Never Assessed Comments Unknown Sex and Gender Information Value Date Recorded Sex Assigned at Not on file Legal Sex Female 2:44 AM TOOL CRIB MANAGER Gender Identity Not on file Sexual Orientation Not on file documented as of this encounter Plan of Treatment Not on file documented as of this encounter Visit Diagnoses Not on filedocumented in this encounter
--- OUTSIDE RECORDS SUMMARY | 2024-08-15 16:32 | XMS_ITS | Encounter Summary ---
Author Organization [facility] Address [address] [place] [address] Care Team Providers Care Wad Lubricator Name Role Phone Unavailable Primary Care Provider Unavailabl e Encounter Details Date Type Department Care Team (Late st Contact Info) Description 11/15/2003 Outpatient Historical [facility] Pediatrics [place] [address] [facility] [address] [place] [address] Kashmir Gunn MD [address] [facility] [address] [place] [address] Social History Tobacco Use Types Packs/Day Years Used Date Smoking Tobacco: Never Assessed Comments Unknown Sex and Gender Information Value Date Recorded Sex Assigned at Not on file Legal Sex Female 2:44 AM SNOWBOARDER Gender Identity Not on file Sexual Orientation Not on file documented as of this encounter Plan of Treatment Not on file documented as of this encounter Procedures Procedure Name Priority Date/Time Associated Diagnosis Comments CHG POLIOVIRUS IPV [facility] 4 12:00 AM CDT CHG MMR VACCINE SQ [facility] 4 12:00 AM CDT CHG DTAP VACCINE <7 YO IM [facility] 11/15/2003 12:00 AM CDT documented in this encounter Visit Diagnoses Not on filedocumented in this encounter
--- OUTSIDE RECORDS SUMMARY | 2024-08-15 16:32 | XMS_ITS | Encounter Summary ---
Author Organization [facility] Address [address] [place] [address] Care Team Providers Care Permit Technician Name Role Phone Unavailable Primary Care Provider Unavailabl e Encounter Details Date Type Department Care Team (Late st Contact Info) Description 04/09/1998 Outpatient Historical [facility] Pediatrics [place] [address] [place] [address] Moises Guerrero Social History Tobacco Use Types Packs/Day Years Used Date Smoking Tobacco: Never Assessed Comments Unknown Sex and Gender Information Value Date Recorded Sex Assigned at Not on file Legal Sex Female 2:44 AM PARTS BACK COUNTER MAN Gender Identity Not on file Sexual Orientation Not on file documented as of this encounter Plan of Treatment Not on file documented as of this encounter Visit Diagnoses Not on filedocumented in this encounter
--- OUTSIDE RECORDS SUMMARY | 2024-08-15 16:32 | XMS_ITS | Encounter Summary ---
Author Organization [facility] Address [address] [place] [address] Care Team Providers Care Bead Stringer Name Role Phone Unavailable Primary Care Provider Unavailabl e Encounter Details Date Type Department Care Team (Late st Contact Info) Description 07/10/1998 Outpatient Historical [facility] Pediatrics [place] [address] [place] [address] Moises Guerrero Social History Tobacco Use Types Packs/Day Years Used Date Smoking Tobacco: Never Assessed Comments Unknown Sex and Gender Information Value Date Recorded Sex Assigned at Not on file Legal Sex Female 2:44 AM CIGAR MACHINE FEEDER Gender Identity Not on file Sexual Orientation Not on file documented as of this encounter Plan of Treatment Not on file documented as of this encounter Visit Diagnoses Not on filedocumented in this encounter
--- OUTSIDE RECORDS SUMMARY | 2024-08-15 16:32 | XMS_ITS | Encounter Summary ---
Author Organization [facility] Address [address] [place] [address] Care Team Providers Care Opto Mechanical Engineer Name Role Phone Unavailable Primary Care Provider Unavailabl e Encounter Details Date Type Department Care Team (Late st Contact Info) Description 01/14/1998 Outpatient Historical [facility] Pediatrics [place] [address] [place] [address] Moises Guerrero Social History Tobacco Use Types Packs/Day Years Used Date Smoking Tobacco: Never Assessed Comments Unknown Sex and Gender Information Value Date Recorded Sex Assigned at Not on file Legal Sex Female 2:44 AM DRUM SEALER Gender Identity Not on file Sexual Orientation Not on file documented as of this encounter Plan of Treatment Not on file documented as of this encounter Visit Diagnoses Not on filedocumented in this encounter
== END 2024-08-15 15:41 | disposition home or self-care (01) ==
LOC: ANHLAB 15:43
PROVIDERS: Visit Provider Obstetrics & Gynecology Gynecology
DX: R79.9 Abnormal finding of blood chemistry, unspecified (principal)
CPT/HCPCS: 36415; 85027

== ENCOUNTER 2024-08-29 15:33 | Outpatient (CLI) | payer OTHER, SELFPAY ==
--- NOTE | ~2024-08-29 | US_ITS ---
EXAMINATION: US OB /maternal detail DATE: 09/01/2024 16:51 CDT INDICATION: Anatomy scan TECHNIQUE: Real-time transabdominal obstetric ultrasound. FINDINGS: There is a single intrauterine gestation in variable presentation. The placenta is anterior and measures 10.7 mm from the internal cervical os. The cervix measures 4.4 cm cardiac activity and movement is noted with a heart rate of 148 beats per minute. Anatomic parameters are as follows The bladder is visualized and is unremarkable. A three-vessel cord is present. Cord insertion is demonstrated to be on the midline of the abdomen. Bilateral kidneys are present without hydronephrosis. The anterior and posterior margins of the diaphragm are poorly visualized for which follow-up examination is needed. The cervical, thoracic and lumbar spines are covered in their entirety. choroid plexi are visualized, and unremarkable. Lateral ventricles are visualized and are unremarkable. The falx is visualized. The cerebellum is visualized measuring 18 mm, and is sonographically unremarkable. The cisterna magna measures 2.8 mm in anterior to posterior dimension (normal measurement is 2 to 10 mm). The nuchal fold measures 1.7 mm (greater than 6 mm is considered abnormal). Cine of the four-chamber heart is visualized and is anatomic. Both the right and left ventricular outflow tracts are poorly visualized for which short-term follow- up is needed. Limited views of the arms, hands, legs and feet were performed and appear grossly unremarkable. The upper lip and nose are continuous. Deepest vertical pocket of amniotic fluid measures 3.4 cm. The following biometric data were obtained: Biparietal diameter (BPD): 4 cm; head circumference (HC): 15 cm; abdominal circumference (AC): 12.7 cm; femur length (FL): 2.7 cm. These measurements are concordant. Estimated weight is 226 g +/- 34 g, which correlates with the 46th percentile when 01/29/2025 is used as estimated date of delivery. As single measurements, these parameters are each equal to the following estimated gestational ages: BPD: 18 weeks 1 day. HC: 18 weeks 1 day. AC: 18 weeks 2 days. FL: 18 weeks 0 days. estimated gestational age based solely on measurements from this exam is 18 weeks 1 day +/- 1 w twenty-nine palms 2 days. IMPRESSION: Single intrauterine gestation with an approximate gestational age of 18 weeks and 1 day. Estimated du e date by ultrasound is 01/29/2025. Low-lying placenta for which short-term follow-up is recommended. Both the right and left ventricular outflow tracts are poorly visualized for which short-term follow- up is needed. The anterior and posterior margins of the diaphragm are poorly visualized for which follow-up e xamination is needed. Otherwise, unremarkable anatomy scan, as detailed above. Reviewed, dictated and finalized at location A. IMPRESSION: Single intrauterine gestation with an approximate gestational age of 18 weeks a nd 1 day. Estimated due date by ultrasound is 01/29/2025. Low-lying placenta for which short-term follow-up is recommended. Both the right and left ventricular outflow tracts are poorly visualized for wh ich short-term follow-up is needed. The anterior and posterior margins of the diaphragm are poorly visualized for which follow-up examination is needed. Otherwise, unremarkable anatomy scan, as detailed above.
--- OUTSIDE RECORDS SUMMARY | 2024-08-29 15:37 | XMS_ITS | Encounter Summary ---
Author Organization [facility] Address [address] [place] [address] Care Team Providers Care Chief Technical Officer Name Role Phone Unavailable Primary Care Provider Unavailabl e Encounter Details Date Type Department Care Team (Late st Contact Info) Description 04/29/1999 Outpatient Historical [facility] Pediatrics [place] [address] [place] [address] Moises Guerrero Social History Tobacco Use Types Packs/Day Years Used Date Smoking Tobacco: Never Assessed Comments Unknown Sex and Gender Information Value Date Recorded Sex Assigned at Not on file Legal Sex Female 2:44 AM MARKET DEVELOPMENT EXECUTIVE Gender Identity Not on file Sexual Orientation Not on file documented as of this encounter Plan of Treatment Not on file documented as of this encounter Visit Diagnoses Not on filedocumented in this encounter
--- OUTSIDE RECORDS SUMMARY | 2024-08-29 15:37 | XMS_ITS | Encounter Summary ---
Author Organization [facility] Address [address] [place] [address] Care Team Providers Care Front Facer Name Role Phone Unavailable Primary Care Provider Unavailabl e Encounter Details Date Type Department Care Team (Late st Contact Info) Description 11/28/1998 Outpatient Historical [facility] Pediatrics [place] [address] [place] [address] Moises Guerrero Social History Tobacco Use Types Packs/Day Years Used Date Smoking Tobacco: Never Assessed Comments Unknown Sex and Gender Information Value Date Recorded Sex Assigned at Not on file Legal Sex Female 2:44 AM PLATE PAINTER APPRENTICE Gender Identity Not on file Sexual Orientation Not on file documented as of this encounter Plan of Treatment Not on file documented as of this encounter Visit Diagnoses Not on filedocumented in this encounter
--- OUTSIDE RECORDS SUMMARY | 2024-08-29 15:37 | XMS_ITS | Encounter Summary ---
Author Organization [facility] Address [address] [place] [address] Care Team Providers Care Avionics Shop Supervisor Name Role Phone Unavailable Primary Care Provider Unavailabl e Encounter Details Date Type Department Care Team (Late st Contact Info) Description 09/21/2000 Outpatient Historical [facility] Pediatrics [place] [address] [place] [address] Edgar Morton MD [address] [facility] [address] [place] [address] Social History Tobacco Use Types Packs/Day Years Used Date Smoking Tobacco: Never Assessed Comments Unknown Sex and Gender Information Value Date Recorded Sex Assigned at Not on file Legal Sex Female 2:44 AM TAX MANAGER PUBLIC Gender Identity Not on file Sexual Orientation Not on file documented as of this encounter Plan of Treatment Not on file documented as of this encounter Visit Diagnoses Not on filedocumented in this encounter
--- OUTSIDE RECORDS SUMMARY | 2024-08-29 15:37 | XMS_ITS | Encounter Summary ---
Author Organization [facility] Address [address] [place] [address] Care Team Providers Care Landfill Attendant Name Role Phone Unavailable Primary Care Provider Unavailabl e Encounter Details Date Type Department Care Team (Late st Contact Info) Description 10/25/1998 Outpatient Historical [facility] Pediatrics [place] [address] [place] [address] Moises Guerrero Social History Tobacco Use Types Packs/Day Years Used Date Smoking Tobacco: Never Assessed Comments Unknown Sex and Gender Information Value Date Recorded Sex Assigned at Not on file Legal Sex Female 2:44 AM COMPLIANCE REVIEW SPECIALIST Gender Identity Not on file Sexual Orientation Not on file documented as of this encounter Plan of Treatment Not on file documented as of this encounter Visit Diagnoses Not on filedocumented in this encounter
--- OUTSIDE RECORDS SUMMARY | 2024-08-29 15:37 | XMS_ITS | Encounter Summary ---
Author Organization [facility] Address [address] [place] [address] Care Team Providers Care Gift Wrapper Name Role Phone Unavailable Primary Care Provider Unavailabl e Encounter Details Date Type Department Care Team (Late st Contact Info) Description 11/28/1998 Outpatient Historical [facility] Pediatrics [place] [address] [place] [address] Moises Guerrero Social History Tobacco Use Types Packs/Day Years Used Date Smoking Tobacco: Never Assessed Comments Unknown Sex and Gender Information Value Date Recorded Sex Assigned at Not on file Legal Sex Female 2:44 AM SLIP FEEDER Gender Identity Not on file Sexual Orientation Not on file documented as of this encounter Plan of Treatment Not on file documented as of this encounter Visit Diagnoses Not on filedocumented in this encounter
--- OUTSIDE RECORDS SUMMARY | 2024-08-29 15:37 | XMS_ITS | Encounter Summary ---
Author Organization [facility] Address [address] [place] [address] Care Team Providers Care Staff Radiation Therapist Name Role Phone Unavailable Primary Care Provider Unavailabl e Encounter Details Date Type Department Care Team (Late st Contact Info) Description 09/06/1998 Outpatient Historical [facility] Pediatrics [place] [address] [place] [address] Moises Guerrero Social History Tobacco Use Types Packs/Day Years Used Date Smoking Tobacco: Never Assessed Comments Unknown Sex and Gender Information Value Date Recorded Sex Assigned at Not on file Legal Sex Female 2:44 AM MULTI OPERATION MACHINE 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
--- OUTSIDE RECORDS SUMMARY | 2024-08-29 15:37 | XMS_ITS | Encounter Summary ---
Author Organization [facility] Address [address] [place] [address] Care Team Providers Care E Commerce Analyst Name Role Phone Unavailable Primary Care Provider Unavailabl e Encounter Details Date Type Department Care Team (Late st Contact Info) Description 06/12/1999 Outpatient Historical [facility] Pediatrics [place] [address] [place] [address] Moises Guerrero Social History Tobacco Use Types Packs/Day Years Used Date Smoking Tobacco: Never Assessed Comments Unknown Sex and Gender Information Value Date Recorded Sex Assigned at Not on file Legal Sex Female 2:44 AM PROSTHODONTIST/EDUCATOR Gender Identity Not on file Sexual Orientation Not on file documented as of this encounter Plan of Treatment Not on file documented as of this encounter Visit Diagnoses Not on filedocumented in this encounter
--- OUTSIDE RECORDS SUMMARY | 2024-08-29 15:37 | XMS_ITS | Encounter Summary ---
Author Organization [facility] Address [address] [place] [address] Care Team Providers Care Advertising Rep Name Role Phone Unavailable Primary Care Provider [...] on file Legal Sex Female 2:44 AM MARKETING/SALES PERSON Gender Identity Not on file Sexual Orientation Not on file documented as of this encounter Plan of Treatment Not on file documented as of this encounter Visit Diagnoses Diagnosis Face, neck, and scalp, except eye, abrasion or friction burn, without mention of infection- Primary documented in this encounter
--- OUTSIDE RECORDS SUMMARY | 2024-08-29 15:37 | XMS_ITS | Encounter Summary ---
Author Organization [facility] Address [address] [place] [address] Care Team Providers Care Corn Grower Name Role Phone Unavailable Primary Care Provider Unavailabl e Encounter Details Date Type Department Care Team (Late st Contact Info) Description 06/01/2000 Outpatient Historical [facility] Pediatrics [place] [address] [place] [address] Kashmir Gunn MD [address] [place] [address] Social History Tobacco Use Types Packs/Day Years Used Date Smoking Tobacco: Never Assessed Comments Unknown Sex and Gender Information Value Date Recorded Sex Assigned at Not on file Legal Sex Female 2:44 AM CLOTH WINDING SUPERVISOR Gender Identity Not on file Sexual Orientation Not on file documented as of this encounter Plan of Treatment Not on file documented as of this encounter Visit Diagnoses Not on filedocumented in this encounter
--- OUTSIDE RECORDS SUMMARY | 2024-08-29 15:37 | XMS_ITS | Encounter Summary ---
Author Organization [facility] Address [address] [place] [address] Care Team Providers Care Hvac Engineering Technician Name Role Phone Unavailable Primary Care Provider Unavailabl e Encounter Details Date Type Department Care Team (Late st Contact Info) Description 12/17/1998 Outpatient Historical [facility] Pediatrics [place] [address] [place] [address] Moises Guerrero Social History Tobacco Use Types Packs/Day Years Used Date Smoking Tobacco: Never Assessed Comments Unknown Sex and Gender Information Value Date Recorded Sex Assigned at Not on file Legal Sex Female 2:44 AM ASSISTANT AUTO CENTER MANAGER Gender Identity Not on file Sexual Orientation Not on file documented as of this encounter Plan of Treatment Not on file documented as of this encounter Visit Diagnoses Not on filedocumented in this encounter
--- OUTSIDE RECORDS SUMMARY | 2024-08-29 15:37 | XMS_ITS | Encounter Summary ---
Author Organization [facility] Address [address] [place] [address] Care Team Providers Care Reinforced Steel Placing Supervisor Name Role Phone Unavailable Primary Care Provider Unavailabl e Encounter Details Date Type Department Care Team (Late st Contact Info) Description 08/23/1998 Outpatient Historical [facility] Pediatrics [place] [address] [place] [address] Moises Guerrero Social History Tobacco Use Types Packs/Day Years Used Date Smoking Tobacco: Never Assessed Comments Unknown Sex and Gender Information Value Date Recorded Sex Assigned at Not on file Legal Sex Female 2:44 AM GLASS DECORATOR Gender Identity Not on file Sexual Orientation Not on file documented as of this encounter Plan of Treatment Not on file documented as of this encounter Visit Diagnoses Not on filedocumented in this encounter
--- OUTSIDE RECORDS SUMMARY | 2024-08-29 15:37 | XMS_ITS | Clinical Summary ---
Author Organization [facility] Address [address] [place] [address] Phone Care Team Providers Care Registrar Assistant Name Role Phone Unavailable Primary Care [...] file Legal Sex Female 2:44 AM FIRE OFFICER Gender Identity Not on file Sexual Orientation Not on file Occupation Industry Job Start Date Job End Date Not on file Not on file Not on file Not on file Last Filed Vital Signs Vital Sign Reading Time Taken Comments Blood Pressure 110/80 01/28/2016 11:54 AM FIRE OFFICER Pulse 101 01/28/2016 11:54 AM FIRE OFFICER Temperature 37.1 C (98.7 F) 01/28/2016 11:54 AM FIRE OFFICER Respiratory Rate 18 01/28/2016 11:54 AM FIRE OFFICER Oxygen Saturation 97% 01/28/2016 11:54 AM FIRE OFFICER Inhaled Oxygen Concentration - - Weight 61.7 kg (136 lb) 01/28/2016 11:54 AM FIRE OFFICER Height 160 cm (5' 3) 01/28/2016 11:54 AM FIRE OFFICER Body Mass Index 24.09 01/28/2016 11:54 AM FIRE OFFICER Plan of Treatment Health Maintenance Due Date Last Done Comments HPV VACCINES (1 - 3-dose series) 2012 DTAP/TDAP/TD VACCINES (1 - Tdap) 2016 HEPATITIS B VACCINES (1 of 3 - 19+ 3-dose series) 10/31 CERVICAL CANCER SCREENING 2018 HPV/Cotest (21-29) 2018 PAP SMEAR 2018 INFLUENZA VACCINE (#1) 2023
--- OUTSIDE RECORDS SUMMARY | 2024-08-29 15:37 | XMS_ITS | Encounter Summary ---
Author Organization [facility] Address [address] [place] [address] Care Team Providers Care Elementary School Science Teacher Name Role Phone Unavailable Primary Care Provider Unavailabl e Encounter Details Date Type Department Care Team (Late st Contact Info) Description 03/26/2000 Outpatient Historical [facility] Pediatrics [place] [address] [place] [address] Kashmir Gunn MD [address] [facility] [address] [place] [address] Social History Tobacco Use Types Packs/Day Years Used Date Smoking Tobacco: Never Assessed Comments Unknown Sex and Gender Information Value Date Recorded Sex Assigned at Not on file Legal Sex Female 2:44 AM STUFFED CASING TIER Gender Identity Not on file Sexual Orientation Not on file documented as of this encounter Plan of Treatment Not on file documented as of this encounter Visit Diagnoses Not on filedocumented in this encounter
--- OUTSIDE RECORDS SUMMARY | 2024-08-29 15:37 | XMS_ITS | Encounter Summary ---
Author Organization [facility] Address [address] [place] [address] Care Team Providers Care Gis Technician Name Role Phone Unavailable Primary Care Provider Unavailabl e Encounter Details Date Type Department Care Team (Late st Contact Info) Description 04/03/2000 Outpatient Historical [facility] Pediatrics [place] [address] [address] [place] [address] Luis Conklin MD [address] [place] [address] Social History Tobacco Use Types Packs/Day Years Used Date Smoking Tobacco: Never Assessed Comments Unknown Sex and Gender Information Value Date Recorded Sex Assigned at Not on file Legal Sex Female 2:44 AM FEATHEREDGER AND REDUCER MACHINE Gender Identity Not on file Sexual Orientation Not on file documented as of this encounter Plan of Treatment Not on file documented as of this encounter Visit Diagnoses Not on filedocumented in this encounter
--- OUTSIDE RECORDS SUMMARY | 2024-08-29 15:37 | XMS_ITS | Encounter Summary ---
Author Organization [facility] Address [address] [place] [address] Care Team Providers Care Mediator Name Role Phone Unavailable Primary Care Provider Unavailabl e Encounter Details Date Type Department Care Team (Late st Contact Info) Description 05/29/1999 Outpatient Historical [facility] Pediatrics [place] [address] [place] [address] Moises Guerrero Social History Tobacco Use Types Packs/Day Years Used Date Smoking Tobacco: Never Assessed Comments Unknown Sex and Gender Information Value Date Recorded Sex Assigned at Not on file Legal Sex Female 2:44 AM GARBAGE MAN Gender Identity Not on file Sexual Orientation Not on file documented as of this encounter Plan of Treatment Not on file documented as of this encounter Visit Diagnoses Not on filedocumented in this encounter
--- OUTSIDE RECORDS SUMMARY | 2024-08-29 15:37 | XMS_ITS | Encounter Summary ---
Author Organization [facility] Address [address] [place] [address] Care Team Providers Care Gelatin Plant Supervisor Name Role Phone Unavailable Primary Care Provider Unavailabl e Encounter Details Date Type Department Care Team (Late st Contact Info) Description 08/11/1999 Outpatient Historical [facility] Pediatrics [place] [address] [place] [address] Moises Guerrero Social History Tobacco Use Types Packs/Day Years Used Date Smoking Tobacco: Never Assessed Comments Unknown Sex and Gender Information Value Date Recorded Sex Assigned at Not on file Legal Sex Female 2:44 AM CIGARETTE MAKING EXAMINER Gender Identity Not on file Sexual Orientation Not on file documented as of this encounter Plan of Treatment Not on file documented as of this encounter Visit Diagnoses Not on filedocumented in this encounter
--- OUTSIDE RECORDS SUMMARY | 2024-08-29 15:37 | XMS_ITS | Clinical Summary ---
Author Organization [facility] Address [address] [place] [address] Phone Care Team Providers Care Manager Oracle Database Name Role Phone Varun Chavez MD Primary [...] making a change Department associated with goal: [facility] Steps to achieve [...] track(2021 2:25 PM CDT) Yes Sandra Rich, [facility] Insurance MEDICAID [employer] Care Teams Manager Oracle Database Relationship Specialty Start Date End Date Varun Chavez MD [address] [place] [address] PCP - General Internal Medicine 11/13/21
--- OUTSIDE RECORDS SUMMARY | 2024-08-29 15:37 | XMS_ITS | Encounter Summary ---
Author Organization [facility] Address [address] [place] [address] Care Team Providers Care Student Career Development Specialist Name Role Phone Unavailable Primary Care Provider Unavailabl e Encounter Details Date Type Department Care Team (Late st Contact Info) Description 12/03/1998 Outpatient Historical [facility] Pediatrics [place] [address] [place] [address] Moises Guerrero Social History Tobacco Use Types Packs/Day Years Used Date Smoking Tobacco: Never Assessed Comments Unknown Sex and Gender Information Value Date Recorded Sex Assigned at Not on file Legal Sex Female 2:44 AM SCALE INSTALLER Gender Identity Not on file Sexual Orientation Not on file documented as of this encounter Plan of Treatment Not on file documented as of this encounter Visit Diagnoses Not on filedocumented in this encounter
--- OUTSIDE RECORDS SUMMARY | 2024-08-29 15:37 | XMS_ITS | Encounter Summary ---
Author Organization [facility] Address [address] [place] [address] Care Team Providers Care Psychodramatist Name Role Phone Unavailable Primary Care Provider Unavailabl e Encounter Details Date Type Department Care Team (Late st Contact Info) Description 02/05/2000 Outpatient Historical [facility] Pediatrics [place] [address] [facility] [address] [facility] [address] [place] [address] Kashmir Gunn MD [address] [place] [address] Social History Tobacco Use Types Packs/Day Years Used Date Smoking Tobacco: Never Assessed Comments Unknown Sex and Gender Information Value Date Recorded Sex Assigned at Not on file Legal Sex Female 2:44 AM DUAL RATE SUPERVISOR Gender Identity Not on file Sexual Orientation Not on file documented as of this encounter Plan of Treatment Not on file documented as of this encounter Visit Diagnoses Not on filedocumented in this encounter
--- OUTSIDE RECORDS SUMMARY | 2024-08-29 15:37 | XMS_ITS | Encounter Summary ---
Author Organization [facility] Address [address] [place] [address] Care Team Providers Care Mft Name Role Phone Unavailable Primary Care Provider Unavailabl e Encounter Details Date Type Department Care Team (Late st Contact Info) Description 08/15/1999 Outpatient Historical [facility] Pediatrics [place] [address] [place] [address] Moises Guerrero Social History Tobacco Use Types Packs/Day Years Used Date Smoking Tobacco: Never Assessed Comments Unknown Sex and Gender Information Value Date Recorded Sex Assigned at Not on file Legal Sex Female 2:44 AM DIAL PRINTER Gender Identity Not on file Sexual Orientation Not on file documented as of this encounter Plan of Treatment Not on file documented as of this encounter Visit Diagnoses Not on filedocumented in this encounter
--- OUTSIDE RECORDS SUMMARY | 2024-08-29 15:37 | XMS_ITS | Encounter Summary ---
Author Organization [facility] Address [address] [place] [address] Care Team Providers Care Hoop Riveter Name Role Phone Unavailable Primary Care Provider Unavailabl e Encounter Details Date Type Department Care Team (Late st Contact Info) Description 07/25/1999 Outpatient Historical [facility] Pediatrics [place] [address] [place] [address] Moises Guerrero Social History Tobacco Use Types Packs/Day Years Used Date Smoking Tobacco: Never Assessed Comments Unknown Sex and Gender Information Value Date Recorded Sex Assigned at Not on file Legal Sex Female 2:44 AM BREWERY CELLAR 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
--- OUTSIDE RECORDS SUMMARY | 2024-08-29 15:37 | XMS_ITS | Encounter Summary ---
Author Organization [facility] Address [address] [place] [address] Care Team Providers Care Tong Carrier Name Role Phone Unavailable Primary Care Provider Unavailabl e Encounter Details Date Type Department Care Team (Late st Contact Info) Description 01/05/2000 Outpatient Historical [facility] Pediatrics [place] [address] [place] [address] Kashmir Gunn MD [address] [facility] [address] [place] [address] Social History Tobacco Use Types Packs/Day Years Used Date Smoking Tobacco: Never Assessed Comments Unknown Sex and Gender Information Value Date Recorded Sex Assigned at Not on file Legal Sex Female 2:44 AM TONGUER Gender Identity Not on file Sexual Orientation Not on file documented as of this encounter Plan of Treatment Not on file documented as of this encounter Visit Diagnoses Not on filedocumented in this encounter
--- OUTSIDE RECORDS SUMMARY | 2024-08-29 15:37 | XMS_ITS | Encounter Summary ---
Author Organization [facility] Address [address] [place] [address] Care Team Providers Care Human Resources Executive Name Role Phone Unavailable Primary Care Provider Unavailabl e Encounter Details Date Type Department Care Team (Late st Contact Info) Description 08/23/1998 Outpatient Historical [facility] Pediatrics [place] [address] [place] [address] Moises Guerrero Social History Tobacco Use Types Packs/Day Years Used Date Smoking Tobacco: Never Assessed Comments Unknown Sex and Gender Information Value Date Recorded Sex Assigned at Not on file Legal Sex Female 2:44 AM BARKER PEELER Gender Identity Not on file Sexual Orientation Not on file documented as of this encounter Plan of Treatment Not on file documented as of this encounter Visit Diagnoses Not on filedocumented in this encounter
--- OUTSIDE RECORDS SUMMARY | 2024-08-29 15:38 | XMS_ITS | Encounter Summary ---
Author Organization [facility] Address [address] [place] [address] Care Team Providers Care Industrial Analyst Name Role Phone Unavailable Primary Care Provider Unavailabl e Encounter Details Date Type Department Care Team (Late st Contact Info) Description 05/28/1998 Outpatient Historical [facility] Pediatrics [place] [address] [place] [address] Moises Guerrero Social History Tobacco Use Types Packs/Day Years Used Date Smoking Tobacco: Never Assessed Comments Unknown Sex and Gender Information Value Date Recorded Sex Assigned at Not on file Legal Sex Female 2:44 AM BUSINESS CHANGE MANAGER Gender Identity Not on file Sexual Orientation Not on file documented as of this encounter Plan of Treatment Not on file documented as of this encounter Visit Diagnoses Not on filedocumented in this encounter
--- OUTSIDE RECORDS SUMMARY | 2024-08-29 15:38 | XMS_ITS | Encounter Summary ---
Author Organization [facility] Address [address] [place] [address] Care Team Providers Care Technical Sales Support Manager Name Role Phone Unavailable Primary Care Provider Unavailabl e Encounter Details Date Type Department Care Team (Late st Contact Info) Description 11/15/2003 Outpatient Historical [facility] Pediatrics [place] [address] [address] [place] [address] Kashmir Gunn MD [address] [facility] [address] [place] [address] Social History Tobacco Use Types Packs/Day Years Used Date Smoking Tobacco: Never Assessed Comments Unknown Sex and Gender Information Value Date Recorded Sex Assigned at Not on file Legal Sex Female 2:44 AM SENIOR ELECTRICAL DESIGN ENGINEER Gender Identity Not on file Sexual Orientation Not on file documented as of this encounter Plan of Treatment Not on file documented as of this encounter Procedures Procedure Name Priority Date/Time Associated Diagnosis Comments CHG POLIOVIRUS IPV [facility] 4 12:00 AM CDT CHG MMR VACCINE SQ [facility] 4 12:00 AM CDT CHG DTAP VACCINE <7 YO IM [facility] 11/15/2003 12:00 AM CDT documented in this encounter Visit Diagnoses Not on filedocumented in this encounter
--- OUTSIDE RECORDS SUMMARY | 2024-08-29 15:38 | XMS_ITS | Encounter Summary ---
Author Organization [facility] Address [address] [place] [address] Care Team Providers Care Packer Insulation Name Role Phone Unavailable Primary Care Provider Unavailabl e Encounter Details Date Type Department Care Team (Late st Contact Info) Description 01/09/2004 Outpatient Historical [facility]s [address] [place] [address] Murtaza Mcnulty MD [address] [place] [address] Social History Tobacco Use Types Packs/Day Years Used Date Smoking Tobacco: Never Assessed Comments Unknown Sex and Gender Information Value Date Recorded Sex Assigned at Not on file Legal Sex Female 2:44 AM SURGICAL GARMENT INSPECTOR Gender Identity Not on file Sexual Orientation Not on file documented as of this encounter Plan of Treatment Not on file documented as of this encounter Visit Diagnoses Not on filedocumented in this encounter
--- OUTSIDE RECORDS SUMMARY | 2024-08-29 15:38 | XMS_ITS | Encounter Summary ---
Author Organization [facility] Address [address] [place] [address] Care Team Providers Care Wellness Consultant Name Role Phone Unavailable Primary Care Provider Unavailabl e Encounter Details Date Type Department Care Team (Late st Contact Info) Description 02/12/2004 Outpatient Historical [facility] Pediatric[facility] [address] [place] [address] Murtaza Mcnulty MD [address] [place] [phone] Social History Tobacco Use Types Packs/Day Years Used Date Smoking Tobacco: Never Assessed Comments Unknown Sex and Gender Information Value Date Recorded Sex Assigned at Not on file Legal Sex Female 2:44 AM FRONT TENDER Gender Identity Not on file Sexual Orientation Not on file documented as of this encounter Plan of Treatment Not on file documented as of this encounter Visit Diagnoses Not on filedocumented in this encounter
--- OUTSIDE RECORDS SUMMARY | 2024-08-29 15:38 | XMS_ITS | Encounter Summary ---
Author Organization [facility] Address [address] [place] [address] Care Team Providers Care Autocad Electrical Designer Name Role Phone Unavailable Primary Care Provider Unavailabl e Encounter Details Date Type Department Care Team (Late st Contact Info) Description 11/04/2004 Outpatient Historical [facility] Pediatric[facility] [address] [place] [address] Murtaza Mcnulty MD [address] [place] [phone] Social History Tobacco Use Types Packs/Day Years Used Date Smoking Tobacco: Never Assessed Comments Unknown Sex and Gender Information Value Date Recorded Sex Assigned at Not on file Legal Sex Female 2:44 AM STUDENT FINANCIAL AID MANAGER Gender Identity Not on file Sexual Orientation Not on file documented as of this encounter Plan of Treatment Not on file documented as of this encounter Visit Diagnoses Not on filedocumented in this encounter
--- OUTSIDE RECORDS SUMMARY | 2024-08-29 15:38 | XMS_ITS | Encounter Summary ---
Author Organization [facility] Address [address] [place] [address] Care Team Providers Care Cycle Director Name Role Phone Unavailable Primary Care Provider Unavailabl e Encounter Details Date Type Department Care Team (Late st Contact Info) Description 06/06/2001 Outpatient Historical [facility] [place] [address] [facility] [address] [place] [address] Kashmir Gunn MD [address] [facility] [address] [place] [address] Social History Tobacco Use Types Packs/Day Years Used Date Smoking Tobacco: Never Assessed Comments Unknown Sex and Gender Information Value Date Recorded Sex Assigned at Not on file Legal Sex Female 2:44 AM GANG DRILL 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
--- OUTSIDE RECORDS SUMMARY | 2024-08-29 15:38 | XMS_ITS | Encounter Summary ---
Author Organization [facility] Address [address] [place] [address] Care Team Providers Care Engine Wiper Name Role Phone Unavailable Primary Care Provider Unavailabl e Encounter Details Date Type Department Care Team (Late st Contact Info) Description 05/06/2004 Outpatient Historical [facility] Pediatrics [address] [place] [address] Murtaza Mcnulty MD [address] [place] [phone] Social History Tobacco Use Types Packs/Day Years Used Date Smoking Tobacco: Never Assessed Comments Unknown Sex and Gender Information Value Date Recorded Sex Assigned at Not on file Legal Sex Female 2:44 AM LMFT Gender Identity Not on file Sexual Orientation Not on file documented as of this encounter Plan of Treatment Not on file documented as of this encounter Visit Diagnoses Not on filedocumented in this encounter
--- OUTSIDE RECORDS SUMMARY | 2024-08-29 15:38 | XMS_ITS | Data Portability ---
Author Organization [place] - [facility] [employer], Main Office Address [address] [place] [address] Assessment No assessment recorded. Plan of Treatment [...] gaby REFER ENCE: Diabe gaby Care 2016, 39( ppl.1 ):s13 -s22 Not Available [facility] (Lab) [address] [place], [address], 08/02/2020 21:21:32 08/03/1908/02/2020 TSH + free T4, serum thyroid-stim ulating hormone 1.870 uIU/m L 0.465- 4.680 Not Available [facility] (Lab) [address] [place], [address], 08/02/2020 18:47:19 08/03/1908/02/2020 T4, free, serum free T4 0.94 NG/dL 0.78-2 .19 Not Available [facility] (Lab) [address] [place], [address], 08/02/2020 18:13:37 08/03/19 21 08/02/2020 pregn elio [...] 19 6,800 TO 42,90 0 Not Available [facility] (Lab) [address] [place], [address], 08/02/2020 18:13:32 08/03/19 21 08/02/2020 vitam in D, 25-hy droxy , total , serum vd25oh 46.6 NG/mL 30-100 Vitam in D Statu s: Defic ient: <20 ng/mL Insuf ficie nt: 20-29 ng/mL Suffi cient : 30-10 0 ng/mL Not Available [facility] (Lab) [address] [place], [address], 08/02/2020 18:12:47 08/03/19 21 08/02/2020 lipid panel , serum cholesterol 127 mg/dL 140-19 9 low NIH JASON NSUS RECOM MENDA TION FOR GLENIS STERO L: ADULT CHILD LOW RISK: <200 <170 BORDE RLINE : <200- 239 ----- HIGH RISK: >240 >200 Not Available [facility] (Lab) [address] [place], [address], 08/02/2020 17:46:51 08/03/19 21 08/02/2020 lipid panel , serum triglyceride s 62 mg/dL 0-150 NIH JASON NSUS REPOR T RECOM MENDA TION FOR TRIGL YCERI RENA: ADULT CHILD LOW RISK: <150 ----- BODER LINE: 150-1 99 ----- HIGH RISK: >200 ----- Not Available [facility] (Lab) [address] [place], [address], 08/02/2020 17:46:51 08/03/19 21 08/02/2020 lipid panel , serum HDL cholesterol 53 mg/dL 40- Not Available [facility] (Lab) [address] [place], [address], 08/02/2020 17:46:51 08/03/19 21 08/02/2020 lipid panel [...] WILL NOT BE REPOR KELI. Not Available [facility] (Lab) [address] [place], [address], 08/02/2020 17:46:51 08/03/1908/02/2020 CMP, serum or plasm a sodium 139 mmol/ L 137-14 5 Not Available [facility] (Lab) [address] [place], [address], 08/02/2020 17:46:43 08/03/19 21 08/02/2020 CMP, serum or plasm a potassium 4.3 mmol/ L 3.5-5. 1 Not Available [facility] (Lab) [address] [place], [address], 08/02/2020 17:46:43 08/03/19 21 08/02/2020 CMP, serum or plasm a chloride 104 mmol/ L 98-107 Not Available [facility] (Lab) [address] [place], [address], 08/02/2020 17:46:43 08/03/19 21 08/02/2020 CMP, serum or plasm a carbon dioxide 29 mmol/ L 22-30 Not Available [facility] (Lab) [address] [place], [address], 08/02/2020 17:46:43 08/03/19 21 08/02/2020 CMP, serum or plasm a agap 10.3 mmol/ L 14-22 low Not Available [facility] (Lab) [address] [place], [address], 08/02/2020 17:46:43 08/03/19 21 08/02/2020 CMP, serum or plasm a glucose 75 mg/dL 70-99 Not Available [facility] (Lab) [address] [place], [address], 08/02/2020 17:46:43 08/03/19 21 08/02/2020 CMP, serum or plasm a BUN 10 mg/dL 8-19 Not Available [facility] (Lab) [address] [place], [address], 08/02/2020 17:46:43 08/03/19 21 08/02/2020 CMP, serum or plasm a creatinine 0.70 mg/dL 0.66-1 .25 Not Available [facility] (Lab) [address] [place], [address], 08/02/2020 17:46:43 08/03/19 21 08/02/2020 CMP, serum or plasm a GFR >60 Refer ence Range : Clutier ge GFR Healt hy Adult : >60 [...] lator can be locat ed on the [facility] websi te: https :[email or web address] [email or web address].[email or web address] [email or web address] rg/pr zeusess kaseyal s/arianneo qi/gf r_cal culat or Not Available [facility] (Lab) [address] [place], [address], 08/02/2020 17:46:43 08/03/1908/02/2020 CMP, serum or plasm a alkaline phosphatase 51 U/L 38-126 Not Available [facility] (Lab) [address] [place], [address], 08/02/2020 17:46:43 08/03/1908/02/2020 CMP, serum or plasm a alanine aminotransfe rase 12 U/L 0-35 Not Available [facility] (Lab) [address] [place], [address], 08/02/2020 17:46:43 08/03/1908/0208/02/2020 CMP, serum or plasm a aspartate aminotransfe rase 21 U/L 15-37 Not Available [facility] (Lab) [address] [place], [address], 08/02/2020 17:46:43 08/03/19 21 08/02/2020 CMP, serum or plasm a bilirubin, total 0.40 mg/dL 0.20-1 .30 Not Available [facility] (Lab) [address] [place], [address], 08/02/2020 17:46:43 08/03/19 21 08/02/2020 CMP, serum or plasm a calcium 9.7 mg/dL 8.4-10 .2 Not Available [facility] (Lab) [address] [place], [address], 08/02/2020 17:46:43 08/03/19 21 08/02/2020 CMP, serum or plasm a total protein 7.3 g/dL 6.3-8. 2 Not Available [facility] (Lab) [address] [place], [address], 08/02/2020 17:46:43 08/03/19 21 08/02/2020 CMP, serum or plasm a albumin 4.7 g/dL 3.4-5. 0 Not Available [facility] (Lab) [address] [place], [address], 08/02/2020 17:46:43 08/03/19 21 08/02/2020 CMP, serum or plasm a globulin 2.6 g/dL 2.6-4. 2 Not Available [facility] (Lab) [address] [place], [address], 08/02/2020 17:46:43 08/03/19 21 08/02/2020 CMP, serum or plasm a A/G ratio 1.8 ratio 1.0-2. 0 Not Available [facility] (Lab) [address] [place], [address], 08/02/2020 17:46:43 08/03/19 21 08/02/2020 urina lysis compl ete, refle x cultu re color light- yellow Not Available [facility] (Lab) [address] [place], [address], 08/02/2020 17:27:27 08/03/19 21 08/02/2020 urina lysis compl ete, refle x cultu re appear turbid abnormal Not Available [facility] (Lab) [address] [place], [address], 08/02/2020 17:27:27 08/03/19 21 08/02/2020 urina lysis compl ete, refle x cultu re specific gravity 1.021 1.001- 1.030 Not Available [facility] (Lab) [address] [place], [address], 08/02/2020 17:27:27 08/03/19 21 08/02/2020 urina lysis compl ete, refle x cultu re pH 7.5 pH_un its 5.0-9. 0 Not Available [facility] (Lab) [address] [place], [address], 08/02/2020 17:27:27 08/03/19 21 08/02/2020 urina lysis compl ete, refle x cultu re leukocytes negati ve carmencita/u L negati ve- Not Available [facility] (Lab) [address] [place], [address], 08/02/2020 17:27:27 08/03/19 21 08/02/2020 urina lysis compl ete, refle x cultu re nitrite negati ve negati ve- Not Available [facility] (Lab) [address] [place], [address], 08/02/2020 17:27:27 08/03/19 21 08/02/2020 urina lysis compl ete, refle x cultu re protein negati ve mg/dL negati ve- Not Available [facility] (Lab) [address] [place], [address], 08/02/2020 17:27:27 08/03/19 21 08/02/2020 urina lysis compl ete, refle x cultu re glucose normal mg/dL normal - Not Available [facility] (Lab) [address] [place], [address], 08/02/2020 17:27:27 08/03/19 21 08/02/2020 urina lysis compl ete, refle x cultu re ketones negati ve mg/dL negati ve- Not Available [facility] (Lab) [address] [place], [address], 08/02/2020 17:27:27 08/03/19 21 08/02/2020 urina lysis compl ete, refle x cultu re urobilinogen normal mg/dL normal - Not Available [facility] (Lab) [address] [place], [address], 08/02/2020 17:27:27 08/03/19 21 08/02/2020 urina lysis compl ete, refle x cultu re bilirubin negati ve mg/dL negati ve- Not Available [facility] (Lab) [address] [place], [address], 08/02/2020 17:27:27 08/03/19 21 08/02/2020 urina lysis compl ete, refle x cultu re blood negati ve mg/dL negati ve- Not Available [facility] (Lab) [address] [place], [address], 08/02/2020 17:27:27 08/03/19 21 08/02/2020 urina lysis compl ete, refle x cultu re white blood cells 0-8 /i??h pfi?? 0-8 Not Available [facility] (Lab) [address] [place], [address], 08/02/2020 17:27:27 08/03/19 21 08/02/2020 urina lysis compl ete, refle x cultu re red blood cells 0-4 /i??h pfi?? 0-4 Not Available [facility] (Lab) [address] [place], [address], 08/02/2020 17:27:27 08/03/19 21 08/02/2020 urina lysis compl ete, refle x cultu re bacteria none Not Available [facility] (Lab) [address] [place], [address], 08/02/2020 17:27:27 08/03/19 21 08/02/2020 urina lysis compl ete, refle x cultu re squamous epithelial modera te /i??l pfi?? abnormal Not Available [facility] (Lab) [address] [place], [address], 08/02/2020 17:27:27 08/03/19 21 08/02/2020 urina lysis compl ete, refle x cultu re amorphous crystal occasi onal /i??h pfi?? abnormal Not Available [facility] (Lab) [address] [place], [address], 08/02/2020 17:27:27 08/03/19 21 08/02/2020 CBC w/ auto diff white blood cells 11.5 x10'3 /uL 4.2-10 .8 high Not Available [facility] (Lab) [address] [place], [address], 08/02/2020 16:48:23 08/03/19 21 08/02/2020 CBC w/ auto diff red blood cells 4.54 x10'6 /uL 3.80-5 .20 Not Available [facility] (Lab) [address] [place], [address], 08/02/2020 16:48:23 08/03/19 21 08/02/2020 CBC w/ auto diff hemoglobin 13.4 g/dL 12.0-1 5.6 Not Available [facility] (Lab) [address] [place], [address], 08/02/2020 16:48:23 08/03/19 21 08/02/2020 CBC w/ auto diff hematocrit 40.3 % 35.7-4 5.7 Not Available [facility] (Lab) [address] [place], [address], 08/02/2020 16:48:23 08/03/19 21 08/02/2020 CBC w/ auto diff mean red cell volume 88.8 fL 82.0-9 9.0 Not Available [facility] (Lab) [address] [place], [address], 08/02/2020 16:48:23 08/03/19 21 08/02/2020 CBC w/ auto diff mean red cell hemoglobin 29.5 pg 27.0-3 3.0 Not Available [facility] (Lab) [address] [place], [address], 08/02/2020 16:48:23 08/03/19 21 08/02/2020 CBC w/ auto diff mean RBC HGB concentratio n 33.3 g/dL 31.0-3 6.0 Not Available [facility] (Lab) [address] [place], [address], 08/02/2020 16:48:23 08/03/19 21 08/02/2020 CBC w/ auto diff red cell distribution width 13.2 % 11.8-1 5.5 Not Available [facility] (Lab) [address] [place], [address], 08/02/2020 16:48:23 08/03/19 21 08/02/2020 CBC w/ auto diff platelets 304 x10'3 /uL 150-40 0 Not Available [facility] (Lab) [address] [place], [address], 08/02/2020 16:48:23 08/03/19 21 08/02/2020 CBC w/ auto diff mean platelet volume 10.1 fL 9.0-12 .4 Not Available [facility] (Lab) [address] [place], [address], 08/02/2020 16:48:23 08/03/19 21 08/02/2020 CBC w/ auto diff neutrophils 66.5 % 39.0-7 2.0 Not Available [facility] (Lab) [address] [place], [address], 08/02/2020 16:48:23 08/03/19 21 08/02/2020 CBC w/ auto diff lymphocytes 18.2 % 16.0-4 7.0 Not Available [facility] (Lab) [address] [place], [address], 08/02/2020 16:48:23 08/03/19 21 08/02/2020 CBC w/ auto diff monocytes 8.9 % 5.0-12 .0 Not Available [facility] (Lab) [address] [place], [address], 08/02/2020 16:48:23 08/03/19 21 08/02/2020 CBC w/ auto diff eosinophils 4.8 % 1.0-7. 0 Not Available [facility] (Lab) [address] [place], [address], 08/02/2020 16:48:23 08/03/19 21 08/02/2020 CBC w/ auto diff basophils 0.8 % 0.0-2. 0 Not Available [facility] (Lab) [address] [place], [address], 08/02/2020 16:48:23 08/03/19 21 08/02/2020 CBC w/ auto diff immature granulocytes 0.8 % 0.00-0 .50 high Not Available [facility] (Lab) [address] [place], [address], 08/02/2020 16:48:23 08/03/19 21 08/02/2020 CBC w/ auto diff neutrophils, absolute count 7.66 x10'3 /uL 1.5-8. 0 Not Available [facility] (Lab) [address] [place], [address], 08/02/2020 16:48:23 08/03/19 21 08/02/2020 CBC w/ auto diff lymphocytes, absolute count 2.09 x10'3 /uL 1.07-3 .43 Not Available [facility] (Lab) [address] [place], [address], 08/02/2020 16:48:23 08/03/19 21 08/02/2020 CBC w/ auto diff monocytes, absolute count 1.03 x10'3 /uL 0.29-0 .99 high Not Available [facility] (Lab) [address] [place], [address], 08/02/2020 16:48:23 08/03/19 21 08/02/2020 CBC w/ auto diff eosinophils, absolute count 0.55 x10'3 /uL 0.02-0 .53 high Not Available [facility] (Lab) [address] [place], [address], 08/02/2020 16:48:23 08/03/19 21 08/02/2020 CBC w/ auto diff basophils, absolute count 0.09 x10'3 /uL 0.01-0 .08 high Not Available [facility] (Lab) [address] [place], [address], 08/02/2020 16:48:23 08/03/19 21 08/02/2020 CBC w/ auto diff immature granulocytes ,absolute 0.09 x10'3 /uL 0.00-0 .05 high Not Available [facility] (Lab) [address] [place], [address], 08/02/2020 16:48:23 08/03/19 21 08/02/2020 CBC w/ auto diff nucleated red blood cells 0.0 % -0 Not Available [facility] (Lab) [address] [place], [address], 08/02/2020 16:48:23 08/03/19 21 08/02/2020 CBC w/ auto diff NRBC# 0.00 x10'3 /uL Not Available [facility] (Lab) [address] [place], [address], 08/02/2020 16:48:23 08/27/19 21 08/27/2020 CT, NG, TRICH VAG BY LATISHA chlamydia by LATISHA negati ve negati ve Not Available [facility] ([facility]) [address] [place], [address], 08/28/2020 06:12:24 08/27/1908/27/2020 CT, NG, TRICH VAG BY LATISHA gonococcus by LATISHA negati ve negati ve Not Available [facility] ([facility]) [address] [place], [address], 08/28/2020 06:12:24 08/27/1908/27/2020 CT, NG, TRICH VAG BY LATISHA trich vag by LATISHA negati ve negati ve Not Available [facility] ([facility]) [address] [place], [address], 08/28/2020 06:12:24 08/28/19 21 08/27/2020 pregn elio test, urine HCG negati ve Not Available [facility] [address], [place], [address], 08/26/2020 16:54:07 08/14/19 21 08/12/2020 US, pelvi s, trans abdom inal + trans vagin al [facility] [address], [place] [address] [employer] t Name: CHARIS ODONNELL Access ion #: [id number] Sex: F : 1995 0 Locati on: RAD Attend ing Physic mary: ALEXIS DESAI Orderi ng Physic mary: ALEXIS DESAI Exam Date: 021 3:09 PM Exam Name: US PELVIS NON [...] the pelvis . Page 1 of 2 [facility] Jordan t Name: CHARIS ODONNELL Access ion #: [id number] Sex: F : 1995 0 Exam [...] 7:23 AM (CT) Page 2 of 2 [id number] [facility] (Imaging) [address] [place], [address], 04/29/2022 20:21:16 Result Notes None recorded. Problems Name Problem SNOMED Code Status Onset Date Resolution Date Notes Provider Name and Address Organization Details Recorded Time Depressive disorder 15410986 Active Not Available [facility] 3 20:20:07 Anxiety 16864974 Active Not Available [facility] 3 20:20:07 Problem Notes None recorded. Procedures Surgical History Date Name Laterality Status Provider Name and Address Organization Details Recorded Time Sinus Surgery completed Not Available [facility] 04/29/2022 20:19:31 Back Surgery completed Not Available [facility] 04/29/2022 20:19:31 Remove tonsils and adenoids completed Not Available [facility] 04/29/2022 20:19:31 Imaging Results None recorded. Procedure Notes None recorded. Medical Equipment None Reported. Allergies Allergen ID Allergen Name Allergen Category Reaction Reaction Severity Criticality Documentation Date Start Date Code Code System Note Provider Name and Address Organization Details Recorded Time 35070 Substance with sulfonami de structure and antibacte rial mechanism of action (substanc e) medicatio n rash Not available Not available 04/29/2022 82749 8003 SNOMED Not Available [facility] 3 20:21:14 Medications Name Sig [...] % 100 % 92 /min 98.1 [degF] 93699.1 9 g 112 mm[Hg] 82 mm[Hg] Not Available [facility] 3 20:19:57 Date Recorded Body mass index (BMI) Body height Oxygen saturation Oxygen saturation in Arterial blood by Pulse oximetry Heart rate Body temperature Body weight Systolic blood pressure Diastolic blood pressure Provider Name and Address Organization Details Last Updated DateTime 1 28 kg/m2 160.02 cm 98 % 98 % 85 /min 98 [degF] 46405.5 9 g 116 mm[Hg] 80 mm[Hg] Not Available [facility] 3 20:19:57 Date Recorded Body mass index (BMI) Body height Body weight Systolic blood pressure Diastolic blood pressure Provider Name and Address Organization Details Last Updated DateTime 08/26/2020 27.8 kg/m2 160.02 cm 56148 g 120 mm[Hg] 80 mm[Hg] Not Available [facility] 3 20:19:57 Date Recorded Body mass index (BMI) Body height Body temperature Body weight Systolic blood pressure Diastolic blood pressure Provider Name and Address Organization Details Last Updated DateTime 1 28.3 kg/m2 160.02 cm 97.9 [degF] 27153.7 8 g 119 mm[Hg] 78 mm[Hg] Not Available [facility] 3 20:19:57 Social History Question Answer Notes LastModified by [employer] Details LastModified Time Tobacco Smoking Status Never Smoker Not Available [facility] 04/29/2022 20:19:29 What Is Your Level Of Caffeine Consumption? Moderate [id number] Information not available 04/29/2022 How Much Tobacco Do You Chew? None [id number].[id number] Information not available 04/29/2022 In The 14 Days Before Symptom Onset, Have You Had Close Contact With A Laboratory-confirm ed COVID-19 While That Case Was Ill? No MIGRATION.[id number] Information not available 04/29/2022 In The 14 Days Before Symptom Onset, Have You Had Close Contact With A Person Who Is Under Investigation For COVID-19 While That Person Was Ill? No [id number].434125 [id number] Information not available 04/29/2022 What Type Of Diet Are You Following? REGULAR [id number].[id number] 1973 Information not available 04/29/2022 Which Illicit Or Recreational Drugs Have You Used? No MIGRATION.[id number] 7643 Information not available 04/29/2022 Are There Any Guns Present In Your Home? No MIGRATION.[id number] 9307 Information not available 04/29/2022 What Was The Date Of Your Most Recent Tobacco Screening? 08/09/2020 MIGRATION.[id number] 2985 Information not available 04/29/2022 Are You Passively Exposed To Smoke? Yes MIGRATION.843976 8686 Information not available 04/29/2022 How Much Tobacco Do You Smoke? No MIGRATION.206527 1853 Information not available 04/29/2022 Sex: Female Functional Status Question Answer Note LastModified by Organizat ion Details LastModified Time What is your level of alcohol consumption? None MIGRATION.00181 [id number] Information not available 04/29/2022 Do you or have you ever used smokeless tobacco? Never used smokeless tobacco MIGRATION.76021 08985 Information not available 04/29/2022 Do you or have you ever used e-cigarettes or vape? Current user of electronic cigarettes Vape occasionally MIGRATION.19220 33626 Information not available 04/29/2022 What is your exercise level? None MIGRATION.58784 51105 Information not available 04/29/2022 Mental Status None recorded. Family History Relationship Description Onset Age of this Age Resolved Age Notes LastModified by Organization Details LastModified Time Mother Diabetes mellitus [id number] Not available 04/29/2022 20:19:32 Mother Anxiety disorder [id number] [id number] Not available 04/29/2022 20:19:32 Mother Depressive disorder [id number] [id number] Not available 04/29/2022 20:19:32 Sister Anxiety disorder MIGRATION.847 [id number] Not available 04/29/2022 20:19:32 Sister Anxiety disorder MIGRATION.679 [id number] Not available 04/29/2022 20:19:32 Sister Depressive disorder MIGRATION.523 [id number] Not available 04/29/2022 20:19:33 Sister Depressive disorder MIGRATION.938 [id number] Not available 04/29/2022 20:19:33 Medical History Condition Response ANXIETY DISORDER Y ECZEMA Y SLEEP APNEA Y CHICKENPOX Y SKIN PROBLEMS Y DEPRESSION (INCLUDING POST ) Y BACK / NECK PROBLEMS Y HAVE YOU BEEN HOSPITALIZED OR SEEN IN [facility] ER IN THE PAST YEAR ? [...] SNOMED-CT Code Diagnosis ICD10 Code Diagnosis Note [id number] Cristine kelly MD [facility] [address] [place] [address] 08/02/2020 00:00:00 08/02/2020 15:57:22 [id number] Cristine kelly MD [facility] [address], [address] [address] 08/09/2020 00:00:00 08/09/2020 17:12:13 [id number] [facility] _ATHENA_M IGRATION_ DEFAULT_1 _1 , 08/26/2020 00:00:00 08/26/2020 18:24:25 [id number] [facility] _ATHENA_M IGRATION_ DEFAULT_1 _1 , 11/25/2020 00:00:00 11/25/2020 16:23:15 [id number] Annabelle Denney NP [facility] [address] [place] [address] [address] 08/13/2020 00:00:00 08/13/2020 11:06:48 [id number] Annabelle Denney NP [facility] [address] [address] 10/02/2020 00:00:00 10/02/2020 18:04:03 [id number] [facility] [address] [place] [address] [address] 10/30/2020 00:00:00 10/30/2020 14:54:00 [id number] [facility]abelle [facility] [address] [address] 11/28/2020 00:00:00 11/28/2020 15:54:58 [id number] Annabelle Denney NP [facility] [address] [address] 12/18/2020 00:00:00 12/18/2020 16:46:49 Health Concerns Section Related Observation LastModified by Organization Albin gomez LastModified Time None Recorded Concern Status LastModified by Organization Details LastModified Time None Recorded Advance Directives Directive None Recorded Payers Insurance Date Sequence Insurance Name Policy Number Policy Sharma Covered Member ID Sharma Member ID Guarantor Name 06/28/2023 1 [facility] (MEDICAID HMO) [id number] Charis Peres [id number] Charis Peres OBGyn Episode No OBEpisode recorded.
--- OUTSIDE RECORDS SUMMARY | 2024-08-29 15:38 | XMS_ITS | Encounter Summary ---
Author Organization [facility] Address [address] [place] [address] Care Team Providers Care Die Polisher Name Role Phone Unavailable Primary Care Provider Unavailabl e Encounter Details Date Type Department Care Team (Late st Contact Info) Description 06/04/2003 Outpatient Historical [facility] [address] [place] [address] Murtaza Mcnulty MD [address] [place] [phone] Social History Tobacco Use Types Packs/Day Years Used Date Smoking Tobacco: Never Assessed Comments Unknown Sex and Gender Information Value Date Recorded Sex Assigned at Not on file Legal Sex Female 2:44 AM [employer] Gender Identity Not on file Sexual Orientation Not on file documented as of this encounter Plan of Treatment Not on file documented as of this encounter Visit Diagnoses Not on filedocumented in this encounter
--- OUTSIDE RECORDS SUMMARY | 2024-08-29 15:38 | XMS_ITS | Encounter Summary ---
Author Organization [facility] Address [address] [place] [address] Care Team Providers Care Subassembly Supervisor Name Role Phone Unavailable Primary Care Provider Unavailabl e Encounter Details Date Type Department Care Team (Late st Contact Info) Description 07/09/2004 Outpatient Historical [facility] [address] [place] [address] Murtaza Mcnulty MD [address] [place] [address] Social History Tobacco Use Types Packs/Day Years Used Date Smoking Tobacco: Never Assessed Comments Unknown Sex and Gender Information Value Date Recorded Sex Assigned at Not on file 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
--- OUTSIDE RECORDS SUMMARY | 2024-08-29 15:38 | XMS_ITS | Encounter Summary ---
Author Organization [facility] Address 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
--- OUTSIDE RECORDS SUMMARY | 2024-08-29 15:38 | XMS_ITS | Encounter Summary ---
Author Organization [facility] Address 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
--- OUTSIDE RECORDS SUMMARY | 2024-08-29 15:38 | XMS_ITS | Encounter Summary ---
Author Organization [facility] Address [address] [place] [address] Care Team Providers Care Information Assurance Engineer Name Role Phone Unavailable Primary Care Provider Unavailabl e Encounter Details Date Type Department Care Team (Late st Contact Info) Description 01/07/1998 Outpatient Historical [facility] Pediatrics [place] [address] [place] [address] Moises Guerrero Social History Tobacco [...]
--- OUTSIDE RECORDS SUMMARY | 2024-08-29 15:38 | XMS_ITS | Encounter Summary ---
Author Organization [facility] Address [address] [place] [address] Care Team Providers Care Dude Ranch Manager Name Role Phone Unavailable Primary Care Provider Unavailabl e Encounter Details Date Type Department Care Team (Late st Contact Info) Description 04/09/1998 Outpatient Historical [facility] Pediatrics [place] [address] [place] [address] Moises Guerrero Social History Tobacco Use Types Packs/Day Years Used Date Smoking Tobacco: Never Assessed Comments Unknown Sex and Gender Information Value Date Recorded Sex Assigned at Not on file Legal Sex Female 2:44 AM B AND B GANG 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
--- OUTSIDE RECORDS SUMMARY | 2024-08-29 15:38 | XMS_ITS | Encounter Summary ---
Author Organization [facility] Address [address] [place] [address] Care Team Providers Care Farmworker Rice Name Role Phone Unavailable Primary Care Provider Unavailabl e Encounter Details Date Type Department Care Team (Late st Contact Info) Description 02/13/2003 Outpatient Historical [facility] [address] [place] [address] Murtaza Mcnulty MD [address] [place] [address] Social History Tobacco Use Types Packs/Day Years Used Date Smoking Tobacco: Never Assessed Comments Unknown Sex and Gender Information Value Date Recorded Sex Assigned at Not on file Legal Sex Female 2:44 AM REFRIGERATION SYSTEM INSTALLER Gender Identity Not on file Sexual Orientation Not on file documented as of this encounter Plan of Treatment Not on file documented as of this encounter Visit Diagnoses Not on filedocumented in this encounter
--- OUTSIDE RECORDS SUMMARY | 2024-08-29 15:38 | XMS_ITS | Encounter Summary ---
Author Organization [facility] Address [address] [place] [address] Care Team Providers Care Boom Stick Man Name Role Phone Unavailable Primary Care Provider Unavailabl e Encounter Details Date Type Department Care Team (Late st Contact Info) Description 03/22/2002 Outpatient Historical [facility] [address] [place] [address] Murtaza Mcnulty MD [address] [place] [address] Social History Tobacco Use Types Packs/Day Years Used Date Smoking Tobacco: Never Assessed Comments Unknown Sex and Gender Information Value Date Recorded Sex Assigned at Not on file Legal Sex Female 2:44 AM MANUFACTURING MANAGER Gender Identity Not on file Sexual Orientation Not on file documented as of this encounter Plan of Treatment Not on file documented as of this encounter Visit Diagnoses Not on filedocumented in this encounter
--- OUTSIDE RECORDS SUMMARY | 2024-08-29 15:38 | XMS_ITS | Encounter Summary ---
Author Organization [facility] Address [address] [place] [address] Care Team Providers Care Physicians Assistant Name Role Phone Unavailable Primary Care Provider Unavailabl e Encounter Details Date Type Department Care Team (Late st Contact Info) Description 08/25/[address] [facility] [place] [address] [facility] [facility] [address] [place] [address] Kashmir Gunn MD [address] [facility] [address] [place] [address] Social History Tobacco Use Types Packs/Day Years Used Date Smoking Tobacco: Never Assessed Comments Unknown Sex and Gender Information Value Date Recorded Sex Assigned at Not on file Legal Sex Female 2:44 AM TELEPHONE STATION INSTALLER Gender Identity Not on file Sexual Orientation Not on file documented as of this encounter Plan of Treatment Not on file documented as of this encounter Visit Diagnoses Not on filedocumented in this encounter
--- OUTSIDE RECORDS SUMMARY | 2024-08-29 15:38 | XMS_ITS | Encounter Summary ---
Author Organization [facility] Address [address] [place] [address] Care Team Providers Care Insulation Mechanic Name Role Phone Unavailable Primary Care Provider Unavailabl e Encounter Details Date Type Department Care Team (Late st Contact Info) Description 02/06/2004 Outpatient Historical [facility] Pediatrics [address] [place] [address] Murtaza Mcnulty MD [address] [place] [address] Social History Tobacco Use Types Packs/Day Years Used Date Smoking Tobacco: Never Assessed Comments Unknown Sex and Gender Information Value Date Recorded Sex Assigned at Not on file Legal Sex Female 2:44 AM MOBILE HEALTH VEHICLE 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
--- OUTSIDE RECORDS SUMMARY | 2024-08-29 15:38 | XMS_ITS | Encounter Summary ---
Author Organization [facility] Address [address] [place] [address] Care Team Providers Care Track Hoe Operator Name Role Phone Unavailable Primary Care Provider Unavailabl e Encounter Details Date Type Department Care Team (Late st Contact Info) Description 05/31/1998 Outpatient Historical [facility] Pediatric[facility] [address] [place] [address] Moises Guerrero Social History Tobacco Use Types Packs/Day Years Used Date Smoking Tobacco: Never Assessed Comments Unknown Sex and Gender Information Value Date Recorded Sex Assigned at Not on file Legal Sex Female 2:44 AM CLINICAL THERAPIST Gender Identity Not on file Sexual Orientation Not on file documented as of this encounter Plan of Treatment Not on file documented as of this encounter Procedures Procedure Name Priority Date/Time Associated Diagnosis Comments CHG HEPATITIS B VACCINE PED ADOL IM 3 DOSE VFC 05/31/1998 12:00 AM CLINICAL THERAPIST CHG DTAP VACCINE <7 YO IM VFC 05/31/1998 12:00 AM CLINICAL THERAPIST documented in this encounter Visit Diagnoses Not on filedocumented in this encounter
--- OUTSIDE RECORDS SUMMARY | 2024-08-29 15:38 | XMS_ITS | Encounter Summary ---
Author Organization [facility] Address [address] [place] [address] Care Team Providers Care Industrial Training Specialist Name Role Phone Unavailable Primary Care Provider Unavailabl e Encounter Details Date Type Department Care Team (Late st Contact Info) Description 03/05/2001 Outpatient Historical [facility] [place] [address] [place] [address] Luis Conklin MD [address] [place] [address] Social History Tobacco Use Types Packs/Day Years Used Date Smoking Tobacco: Never Assessed Comments Unknown Sex and Gender Information Value Date Recorded Sex Assigned at Not on file Legal Sex Female 2:44 AM VICE PRESIDENT QUALITY Gender Identity Not on file Sexual Orientation Not on file documented as of this encounter Plan of Treatment Not on file documented as of this encounter Visit Diagnoses Not on filedocumented in this encounter
--- OUTSIDE RECORDS SUMMARY | 2024-08-29 15:38 | XMS_ITS | Encounter Summary ---
Author Organization [facility] Address [address] [place] [address] Care Team Providers Care Sound Recording Technician Name Role Phone Unavailable Primary Care Provider Unavailabl e Encounter Details Date Type Department Care Team (Late st Contact Info) Description 01/06/1999 Outpatient Historical [facility]s [place] [address] [place] [address] Moises Guerrero Social History Tobacco Use Types Packs/Day Years Used Date Smoking Tobacco: Never Assessed Comments Unknown Sex and Gender Information Value Date Recorded Sex Assigned at Not on file Legal Sex Female 2:44 AM INTERNATIONAL ACCOUNT EXECUTIVE Gender Identity Not on file Sexual Orientation Not on file documented as of this encounter Plan of Treatment Not on file documented as of this encounter Visit Diagnoses Not on filedocumented in this encounter
--- OUTSIDE RECORDS SUMMARY | 2024-08-29 15:38 | XMS_ITS | Encounter Summary ---
Author Organization [facility] Address [address] [place] [address] Care Team Providers Care Back Sizer Name Role Phone Unavailable Primary Care Provider Unavailabl e Encounter Details Date Type Department Care Team (Late st Contact Info) Description 05/31/[address] [facility] Pediatrics [address] [place] [address] Moises Guerrero Social History Tobacco Use Types Packs/Day Years Used Date Smoking Tobacco: Never Assessed Comments Unknown Sex and Gender Information Value Date Recorded Sex Assigned at Not on file Legal Sex Female 2:44 AM COMPUTER SERVICE TECHNICIAN Gender Identity Not on file Sexual Orientation Not on file documented as of this encounter Plan of Treatment Not on file documented as of this encounter Procedures Procedure Name Priority Date/Time Associated Diagnosis Comments CHG POLIOVIRUS VACCINE LIVE ORAL VFC 05/31/1998 12:00 AM COMPUTER SERVICE TECHNICIAN documented in this encounter Visit Diagnoses Not on filedocumented in this encounter
== END 2024-08-29 15:34 | disposition home or self-care (01) ==
PROVIDERS: Visit Provider Obstetrics & Gynecology Gynecology
DX: Z36.9 Encounter for antenatal screening, unspecified (principal); Z3A.00 Weeks of gestation of pregnancy not specified
CPT/HCPCS: 76805

== ENCOUNTER 2024-08-31 16:29 | Outpatient (CLI) | payer OTHER, SELFPAY ==
--- NOTE | ~2024-08-31 | US_ITS ---
EXAMINATION: US OB follow up DATE: 09/04/2024 12:49 CDT INDICATION: Spotting complicating , second trimester TECHNIQUE: Real-time transabdominal obstetric ultrasound. COMPARISON: Anatomy screen: 08/29/2024 FINDINGS: 1 para 0. There is a single intrauterine gestation in variable presentation. The placenta is anterior. The tip of the anterior placenta now measures approximately 4.3 cm from the internal cervical os (inc reased from 1.1 cm on the previous study) The cervix measures 4.75 cm in length. cardiac activity and movement is noted with a heart rate of 145 beats per minute. Deepest vertical pocket of amniotic fluid measures 3.3cm. The placenta is uniformly echogenic with rounded margins. Decreased echogenicity is identified between the placenta and the uterine margins, consistent with th e subplacental venous complex which demonstrates appropriate color flow. The following biometric data were obtained: Biparietal diameter (BPD): 4.2 cm; head circumference (HC): 17.3 cm; abdominal circumference (AC): 13.2 cm; femur length (FL): 2.9 cm. These measurements are concordant. Estimated weight is 266.4 g +/- 40 g, which correlates with the 77th percentile when 01/25/2025 is used as estimated date of delivery. As single measurements, these parameters are each equal to the following estimated gestational ages: BPD: 18 weeks 4 days. HC: 19 weeks 6 days. AC: 18 weeks 5 days. FL: 19 weeks 0 days. estimated gestational age based solely on measurements from this exam is 19 weeks 0 days +/- 1 week 2 days. IMPRESSION: Single intrauterine gestation with an approximate gestational age of 19 weeks and 0 days. Estimated d ue date by ultrasound is 01/25/2025 Interval resolution of the low-lying placenta suspected on anatomy scan dated 08/29/2024, possibly due to changes in positioning and technique. Short-term follow-up for completion of anatomy scan as well as to determine the possible etiology for patient's spotting, as none is currently visualized on the submitted static or cine views. Reviewed, dictated and finalized at location A. IMPRESSION: Single intrauterine gestation with an approximate gestational age of 19 weeks a nd 0 days. Estimated due date by ultrasound is 01/25/2025 Interval resolution of the low-lying placenta suspected on anatomy scan dated , possibly due to changes in positioning and technique. Short-term follow-up for completion of anatomy scan as well as to determine the possible etiology for patient's spotting, as none is currently visualized on t he submitted static or cine views.
--- OUTSIDE RECORDS SUMMARY | 2024-08-31 16:33 | XMS_ITS | Encounter Summary ---
Author Organization [facility] Address [address] [place] [address] Care Team Providers Care Physician Anesthesiologist Name Role Phone Unavailable Primary Care Provider Unavailabl e Encounter Details Date Type Department Care Team (Late st Contact Info) Description 08/11/1999 Outpatient Historical [facility] Pediatrics [place] [address] [place] [address] Moises Guerrero Social History Tobacco Use Types Packs/Day Years Used Date Smoking Tobacco: Never Assessed Comments Unknown Sex and Gender Information Value Date Recorded Sex Assigned at Not on file Legal Sex Female 2:44 AM PERFORMANCE MAKEUP ARTIST Gender Identity Not on file Sexual Orientation Not on file documented as of this encounter Plan of Treatment Not on file documented as of this encounter Visit Diagnoses Not on filedocumented in this encounter
--- OUTSIDE RECORDS SUMMARY | 2024-08-31 16:33 | XMS_ITS | Encounter Summary ---
Author Organization [facility] Address [address] [place] [address] Care Team Providers Care Tail End Rider Name Role Phone Unavailable Primary Care Provider Unavailabl e Encounter Details Date Type Department Care Team (Late st Contact Info) Description 04/03/2000 Outpatient Historical [facility] Pediatrics [place] [address] [facility] [address] [place] [address] Luis Conklin MD [address] [place] [address] Social History Tobacco Use Types Packs/Day Years Used Date Smoking Tobacco: Never Assessed Comments Unknown Sex and Gender Information Value Date Recorded Sex Assigned at Not on file Legal Sex Female 2:44 AM ESCORT CAR DRIVER Gender Identity Not on file Sexual Orientation Not on file documented as of this encounter Plan of Treatment Not on file documented as of this encounter Visit Diagnoses Not on filedocumented in this encounter
--- OUTSIDE RECORDS SUMMARY | 2024-08-31 16:33 | XMS_ITS | Encounter Summary ---
Author Organization [facility] Address [address] [place] [address] Care Team Providers Care Fixed Wing Aircraft Flight Engineer Name Role Phone Unavailable Primary Care Provider Unavailabl e Encounter Details Date Type Department Care Team (Late st Contact Info) Description 07/25/1999 Outpatient Historical [facility] Pediatrics [place] [address] [place] [address] Moises Guerrero Social History Tobacco Use Types Packs/Day Years Used Date Smoking Tobacco: Never Assessed Comments Unknown Sex and Gender Information Value Date Recorded Sex Assigned at Not on file Legal Sex Female 2:44 AM MOSS BLEACHER Gender Identity Not on file Sexual Orientation Not on file documented as of this encounter Plan of Treatment Not on file documented as of this encounter Visit Diagnoses Not on filedocumented in this encounter
--- OUTSIDE RECORDS SUMMARY | 2024-08-31 16:33 | XMS_ITS | Encounter Summary ---
Author Organization [facility] Address [address] [place] [address] Care Team Providers Care Youth Worker Name Role Phone Unavailable Primary Care Provider Unavailabl e Encounter Details Date Type Department Care Team (Late st Contact Info) Description 08/15/1999 Outpatient Historical [facility] Pediatrics [place] [address] [place] [address] Moises Guerrero Social History Tobacco Use Types Packs/Day Years Used Date Smoking Tobacco: Never Assessed Comments Unknown Sex and Gender Information Value Date Recorded Sex Assigned at Not on file Legal Sex Female 2:44 AM AIRCRAFT SHIPPING CHECKER Gender Identity Not on file Sexual Orientation Not on file documented as of this encounter Plan of Treatment Not on file documented as of this encounter Visit Diagnoses Not on filedocumented in this encounter
--- OUTSIDE RECORDS SUMMARY | 2024-08-31 16:33 | XMS_ITS | Encounter Summary ---
Author Organization [facility] Address [address] [place] [address] Care Team Providers Care Customer Solutions Architect Name Role Phone Unavailable Primary Care Provider Unavailabl e Encounter Details Date Type Department Care Team (Late st Contact Info) Description 08/23/[address] [facility] Pediatrics [place] [address] [place] [address] Moises Guerrero Social History Tobacco Use Types Packs/Day Years Used Date Smoking Tobacco: Never Assessed Comments Unknown Sex and Gender Information Value Date Recorded Sex Assigned at Not on file Legal Sex Female 2:44 AM TISSUE COORDINATOR Gender Identity Not on file Sexual Orientation Not on file documented as of this encounter Plan of Treatment Not on file documented as of this encounter Visit Diagnoses Not on filedocumented in this encounter
--- OUTSIDE RECORDS SUMMARY | 2024-08-31 16:33 | XMS_ITS | Encounter Summary ---
Author Organization [facility] Address [address] [place] [address] Care Team Providers Care Ruling Machine Operator Name Role Phone Unavailable Primary Care Provider Unavailabl e Encounter Details Date Type Department Care Team (Late st Contact Info) Description 08/23/1998 Outpatient Historical [facility] Pediatrics [place] [address] [place] [address] Moises Guerrero Social History Tobacco Use Types Packs/Day Years Used Date Smoking Tobacco: Never Assessed Comments Unknown Sex and Gender Information Value Date Recorded Sex Assigned at Not on file Legal Sex Female 2:44 AM JAVA DEVELOPER Gender Identity Not on file Sexual Orientation Not on file documented as of this encounter Plan of Treatment Not on file documented as of this encounter Visit Diagnoses Not on filedocumented in this encounter
--- OUTSIDE RECORDS SUMMARY | 2024-08-31 16:33 | XMS_ITS | Encounter Summary ---
Author Organization [facility] Address [address] [place] [address] Care Team Providers Care On Site Property Manager Name Role Phone Unavailable Primary Care Provider Unavailabl e Encounter Details Date Type Department Care Team (Late st Contact Info) Description 09/21/2000 Outpatient Historical [facility]s [place] [address] [facility] [facility] [address] [place] [address] Edgar Morton MD [address] [facility] [address] [place] [address] Social History Tobacco Use Types Packs/Day Years Used Date Smoking Tobacco: Never Assessed Comments Unknown Sex and Gender Information Value Date Recorded Sex Assigned at Not on file Legal Sex Female 2:44 AM ANNUAL GREENHOUSE MANAGER Gender Identity Not on file Sexual Orientation Not on file documented as of this encounter Plan of Treatment Not on file documented as of this encounter Visit Diagnoses Not on filedocumented in this encounter
--- OUTSIDE RECORDS SUMMARY | 2024-08-31 16:33 | XMS_ITS | Encounter Summary ---
Author Organization [facility] Address [address] [place] [address] Care Team Providers Care Hospitalist Program Director Name Role Phone Unavailable Primary Care Provider Unavailabl e Encounter Details Date Type Department Care Team (Late st Contact Info) Description 01/05/2000 Outpatient Historical [facility] [place] [address] [facility] [address] [place] [address] Kashmir Gunn MD [address] [facility] [address] [place] [address] Social History Tobacco Use Types Packs/Day Years Used Date Smoking Tobacco: Never Assessed Comments Unknown Sex and Gender Information Value Date Recorded Sex Assigned at Not on file Legal Sex Female 2:44 AM CHILDREN'S LUNCHROOM SUPERVISOR Gender Identity Not on file Sexual Orientation Not on file documented as of this encounter Plan of Treatment Not on file documented as of this encounter Visit Diagnoses Not on filedocumented in this encounter
--- OUTSIDE RECORDS SUMMARY | 2024-08-31 16:33 | XMS_ITS | Encounter Summary ---
Author Organization [facility] Address [address] [place] [address] Care Team Providers Care Olericulture Professor Name Role Phone Unavailable Primary Care Provider Unavailabl e Encounter Details Date Type Department Care Team (Late st Contact Info) Description 05/29/1999 Outpatient Historical [facility] Pediatrics [place] [address] [place] [address] Moises Guerrero Social History Tobacco Use Types Packs/Day Years Used Date Smoking Tobacco: Never Assessed Comments Unknown Sex and Gender Information Value Date Recorded Sex Assigned at Not on file Legal Sex Female 2:44 AM GREEN HIDE INSPECTOR Gender Identity Not on file Sexual Orientation Not on file documented as of this encounter Plan of Treatment Not on file documented as of this encounter Visit Diagnoses Not on filedocumented in this encounter
--- OUTSIDE RECORDS SUMMARY | 2024-08-31 16:33 | XMS_ITS | Encounter Summary ---
Author Organization [facility] Address [address] [place] [address] Care Team Providers Care Grinding Supervisor Name Role Phone Unavailable Primary Care Provider Unavailabl e Encounter Details Date Type Department Care Team (Late st Contact Info) Description 06/01/2000 Outpatient Historical [facility] Pediatric[facility] [place] [address] [facility] [address] [place] [address] Kashmir Gunn MD [address] [place] [address] Social History Tobacco Use Types Packs/Day Years Used Date Smoking Tobacco: Never Assessed Comments Unknown Sex and Gender Information Value Date Recorded Sex Assigned at Not on file Legal Sex Female 2:44 AM CUTTER HOT KNIFE Gender Identity Not on file Sexual Orientation Not on file documented as of this encounter Plan of Treatment Not on file documented as of this encounter Visit Diagnoses Not on filedocumented in this encounter
--- OUTSIDE RECORDS SUMMARY | 2024-08-31 16:33 | XMS_ITS | Encounter Summary ---
Author Organization [facility] Address [address] [place] [address] Care Team Providers Care Professor Of Public Administration Name Role Phone Unavailable Primary Care Provider Unavailabl e Encounter Details Date Type Department Care Team (Late st Contact Info) Description 06/12/1999 Outpatient Historical [facility] Pediatrics [place] [address] [place] [address] Moises Guerrero Social History Tobacco Use Types Packs/Day Years Used Date Smoking Tobacco: Never Assessed Comments Unknown Sex and Gender Information Value Date Recorded Sex Assigned at Not on file Legal Sex Female 2:44 AM QUANTITATIVE ANALYST MARKETING Gender Identity Not on file Sexual Orientation Not on file documented as of this encounter Plan of Treatment Not on file documented as of this encounter Visit Diagnoses Not on filedocumented in this encounter
--- OUTSIDE RECORDS SUMMARY | 2024-08-31 16:33 | XMS_ITS | Clinical Summary ---
Author Organization [facility] Address [address] [place] [address] Phone Care Team Providers Care Assistant County Attorney Name Role Phone Unavailable Primary Care Provider [...] Legal Sex Female 2:44 AM WASHING MACHINE ASSEMBLER Gender Identity Not on file Sexual Orientation Not on file Occupation Industry Job Start Date Job End Date Not on file Not on file Not on file Not on file Last Filed Vital Signs Vital Sign Reading Time Taken Comments Blood Pressure 110/80 01/28/2016 11:54 AM WASHING MACHINE ASSEMBLER Pulse 101 01/28/2016 11:54 AM WASHING MACHINE ASSEMBLER Temperature 37.1 C (98.7 F) 01/28/2016 11:54 AM WASHING MACHINE ASSEMBLER Respiratory Rate 18 01/28/2016 11:54 AM WASHING MACHINE ASSEMBLER Oxygen Saturation 97% 01/28/2016 11:54 AM WASHING MACHINE ASSEMBLER Inhaled Oxygen Concentration - - Weight 61.7 kg (136 lb) 01/28/2016 11:54 AM WASHING MACHINE ASSEMBLER Height 160 cm (5' 3) 01/28/2016 11:54 AM WASHING MACHINE ASSEMBLER Body Mass Index 24.09 01/28/2016 11:54 AM WASHING MACHINE ASSEMBLER Plan of Treatment Health Maintenance Due Date Last Done Comments HPV VACCINES (1 - 3-dose series) 2012 DTAP/TDAP/TD VACCINES (1 - Tdap) 2016 HEPATITIS B VACCINES (1 of 3 - 19+ 3-dose series) 10/31 CERVICAL CANCER SCREENING 2018 HPV/Cotest (21-29) 2018 PAP SMEAR 2018 INFLUENZA VACCINE (#1) 2023
--- OUTSIDE RECORDS SUMMARY | 2024-08-31 16:33 | XMS_ITS | Encounter Summary ---
Author Organization [facility] Address [address] [place] [address] Care Team Providers Care Store Stocker Name Role Phone Unavailable Primary Care Provider Unavailabl e Encounter Details Date Type Department Care Team (Late st Contact Info) Description 03/26/2000 Outpatient Historical [facility] Pediatric[facility] [place] [address] [facility] [address] [place] [address] Kashmir Gunn MD [address] [facility] [address] [place] [address] Social History Tobacco Use Types Packs/Day Years Used Date Smoking Tobacco: Never Assessed Comments Unknown Sex and Gender Information Value Date Recorded Sex Assigned at Not on file Legal Sex Female 2: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
--- OUTSIDE RECORDS SUMMARY | 2024-08-31 16:33 | XMS_ITS | Encounter Summary ---
Author Organization [facility] Address [address] [place] [address] Care Team Providers Care A Auxiliary Name Role Phone Unavailable Primary Care Provider Unavailabl e Encounter Details Date Type Department Care Team (Late st Contact Info) Description 02/05/2000 Outpatient Historical [facility] Pediatrics [place] [address] [facility] [address] [place] [address] Kashmir Gunn MD [address] [facility] [address] [place] [address] Social History Tobacco Use Types Packs/Day Years Used Date Smoking Tobacco: Never Assessed Comments Unknown Sex and Gender Information Value Date Recorded Sex Assigned at Not on file Legal Sex Female 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
--- OUTSIDE RECORDS SUMMARY | 2024-08-31 16:33 | XMS_ITS | Clinical Summary ---
Author Organization [facility] Address [address] [place] [address] Phone Care Team Providers Care Marble Polisher Hand Name Role Phone Varun Chavez MD Primary [...] making a change Department associated with goal: [facility] Steps to achieve goal: [...] track(2021 2:25 PM CDT) Yes Sandra Rich, [facility] Insurance MEDICAID [employer] Care Teams Marble Polisher Hand Relationship Specialty Start Date End Date Varun Chavez MD [address] [place] [address] PCP - General Internal Medicine 11/13/21
--- OUTSIDE RECORDS SUMMARY | 2024-08-31 16:33 | XMS_ITS | Encounter Summary ---
Author Organization [facility] Address [address] [place] [address] Care Team Providers Care Wafer Fabrication Operator Name Role Phone Unavailable Primary Care Provider Unavailabl e Encounter Details Date Type Department Care Team (Late st Contact Info) Description 09/06/[address] 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
--- OUTSIDE RECORDS SUMMARY | 2024-08-31 16:34 | XMS_ITS | Encounter Summary ---
Author Organization [facility] Address [address] [place] [address] Care Team Providers Care Lead Architect Name Role Phone Unavailable Primary Care Provider Unavailabl e Encounter Details Date Type Department Care Team (Late st Contact Info) Description 03/05/2001 Outpatient Historical [facility] Pediatrics [place] [address] [facility] [address] [place] [address] Luis Conklin MD [address] [place] [address] Social History Tobacco Use Types Packs/Day Years Used Date Smoking Tobacco: Never Assessed Comments Unknown Sex and Gender Information Value Date Recorded Sex Assigned at Not on file Legal Sex Female 2:44 AM UNIVERSITY ARCHIVIST Gender Identity Not on file Sexual Orientation Not on file documented as of this encounter Plan of Treatment Not on file documented as of this encounter Visit Diagnoses Not on filedocumented in this encounter
--- OUTSIDE RECORDS SUMMARY | 2024-08-31 16:34 | XMS_ITS | Encounter Summary ---
Author Organization [facility] Address [address] [place] [address] Care Team Providers Care Steel Buffer Name Role Phone Unavailable Primary Care Provider Unavailabl e Encounter Details Date Type Department Care Team (Late st Contact Info) Description 01/07/1998 Outpatient Historical [facility] Pediatrics [place] [address] [place] [address] Moises Guerrero Social History Tobacco Use Types Packs/Day Years Used Date Smoking Tobacco: Never Assessed Comments Unknown Sex and Gender Information Value Date Recorded Sex Assigned at Not on file Legal Sex Female 2:44 AM BANK CONSULTANT Gender Identity Not on file Sexual Orientation Not on file documented as of this encounter Plan of Treatment Not on file documented as of this encounter Visit Diagnoses Not on filedocumented in this encounter
--- OUTSIDE RECORDS SUMMARY | 2024-08-31 16:34 | XMS_ITS | Encounter Summary ---
Author Organization [facility] Address [address] [place] [address] Care Team Providers Care Child And Family Therapist Name Role Phone Unavailable Primary Care Provider Unavailabl e Encounter Details Date Type Department Care Team (Late st Contact Info) Description 05/31/1998 Outpatient Historical [facility] Pediatrics [address] [place] [address] Moises Guerrero Social History Tobacco Use Types Packs/Day Years Used Date Smoking Tobacco: Never Assessed Comments Unknown Sex and Gender Information Value Date Recorded Sex Assigned at Not on file Legal Sex Female 2:44 AM AUTOMATIC EDGER Gender Identity Not on file Sexual Orientation Not on file documented as of this encounter Plan of Treatment Not on file documented as of this encounter Procedures Procedure Name Priority Date/Time Associated Diagnosis Comments CHG POLIOVIRUS VACCINE LIVE ORAL VFC 05/31/1998 12:00 AM AUTOMATIC EDGER documented in this encounter Visit Diagnoses Not on filedocumented in this encounter
--- OUTSIDE RECORDS SUMMARY | 2024-08-31 16:34 | XMS_ITS | Encounter Summary ---
Author Organization [facility] Address [address] [place] [address] Care Team Providers Care Dietary Aide Teacher Name Role Phone Unavailable Primary Care Provider Unavailabl e Encounter Details Date Type Department Care Team (Late st Contact Info) Description 04/09/1998 Outpatient Historical [facility] Pediatrics [place] [address] [place] [address] Moises Guerrero Social History Tobacco Use Types Packs/Day Years Used Date Smoking Tobacco: Never Assessed Comments Unknown Sex and Gender Information Value Date Recorded Sex Assigned at Not on file Legal Sex Female 2:44 AM BRICK POINTER Gender Identity Not on file Sexual Orientation Not on file documented as of this encounter Plan of Treatment Not on file documented as of this encounter Visit Diagnoses Not on filedocumented in this encounter
--- OUTSIDE RECORDS SUMMARY | 2024-08-31 16:34 | XMS_ITS | Encounter Summary ---
Author Organization [facility] Address [address] [place] [address] Care Team Providers Care Skiving Machine Operator Name Role Phone Unavailable Primary Care Provider Unavailabl e Encounter Details Date Type Department Care Team (Late st Contact Info) Description 01/06/[address] [facility] Pediatrics [place] [address] [place] [address] Moises Guerrero Social History Tobacco [...]
--- OUTSIDE RECORDS SUMMARY | 2024-08-31 16:34 | XMS_ITS | Encounter Summary ---
Author Organization [facility] Address [address] [place] [address] Care Team Providers Care Network Control Operator Name Role Phone Unavailable Primary Care Provider Unavailabl e Encounter Details Date Type Department Care Team (Late st Contact Info) Description 01/09/2004 Outpatient Historical [facility] Pediatrics [address] [place] [address] Murtaza Mcnulty MD [address] [place] [address] Social History Tobacco Use Types Packs/Day Years Used Date Smoking Tobacco: Never Assessed Comments Unknown Sex and Gender Information Value Date Recorded Sex Assigned at Not on file Legal Sex Female 2:44 AM RENAL NURSE Gender Identity Not on file Sexual Orientation Not on file documented as of this encounter Plan of Treatment Not on file documented as of this encounter Visit Diagnoses Not on filedocumented in this encounter
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
--- OUTSIDE RECORDS SUMMARY | 2024-08-31 16:34 | XMS_ITS | Encounter Summary ---
Author Organization [facility] Address [address] [place] [address] Care Team Providers Care Flight Operation Coordinator Name Role Phone Unavailable Primary Care Provider Unavailabl e Encounter Details Date Type Department Care Team (Late st Contact Info) Description 05/06/2004 Outpatient Historical [facility] Pediatrics [address] [place] [address] Murtaza Mcnulty MD [address] [place] [address] Social History Tobacco Use Types Packs/Day Years Used Date Smoking Tobacco: Never Assessed Comments Unknown Sex and Gender Information Value Date Recorded Sex Assigned at Not on file Legal Sex Female 2:44 AM ELECTRICAL SUPERVISOR Gender Identity Not on file Sexual Orientation Not on file documented as of this encounter Plan of Treatment Not on file documented as of this encounter Visit Diagnoses Not on filedocumented in this encounter
--- OUTSIDE RECORDS SUMMARY | 2024-08-31 16:34 | XMS_ITS | Encounter Summary ---
Author Organization [facility] Address [address] [place] [address] Care Team Providers Care Audio Visual Director Name Role Phone Unavailable Primary Care Provider Unavailabl e Encounter Details Date Type Department Care Team (Late st Contact Info) Description 05/28/1998 Outpatient Historical [facility] Pediatrics [place] [address] [place] [address] Moises Guerrero Social History Tobacco Use Types Packs/Day Years Used Date Smoking Tobacco: Never Assessed Comments Unknown Sex and Gender Information Value Date Recorded Sex Assigned at Not on file Legal Sex Female 2:44 AM COMPLIANCE NURSE Gender Identity Not on file Sexual Orientation Not on file documented as of this encounter Plan of Treatment Not on file documented as of this encounter Visit Diagnoses Not on filedocumented in this encounter
--- OUTSIDE RECORDS SUMMARY | 2024-08-31 16:34 | XMS_ITS | Encounter Summary ---
Author Organization [facility] Address [address] [place] [address] Care Team Providers Care [place] Sieve Operator Name Role Phone Unavailable Primary Care Provider Unavailabl e Encounter Details Date Type Department Care Team (Late st Contact Info) Description 06/06/2001 Outpatient Historical [facility] Pediatrics [place] [address] [facility] [address] [place] [address] Kashmir Gunn MD [address] [facility] [address] [place] [address] Social History Tobacco Use Types Packs/Day Years Used Date Smoking Tobacco: Never Assessed Comments Unknown Sex and Gender Information Value Date Recorded Sex Assigned at Not on file Legal Sex Female 2:44 AM HELP DESK MANAGER Gender Identity Not on file Sexual Orientation Not on file documented as of this encounter Plan of Treatment Not on file documented as of this encounter Visit Diagnoses Not on filedocumented in this encounter
--- OUTSIDE RECORDS SUMMARY | 2024-08-31 16:34 | XMS_ITS | Encounter Summary ---
Author Organization [facility] Address [address] [place] [address] Care Team Providers Care Defensive Driving Instructor Name Role Phone Unavailable Primary Care Provider Unavailabl e Encounter Details Date Type Department Care Team (Late st Contact Info) Description 04/29/1999 Outpatient Historical [facility] Pediatrics [place] [address] [place] [address] Moises Guerrero Social History Tobacco Use Types Packs/Day Years Used Date Smoking Tobacco: Never Assessed Comments Unknown Sex and Gender Information Value Date Recorded Sex Assigned at Not on file Legal Sex Female 2:44 AM EXTENSION WORK INSTRUCTOR Gender Identity Not on file Sexual Orientation Not on file documented as of this encounter Plan of Treatment Not on file documented as of this encounter Visit Diagnoses Not on filedocumented in this encounter
--- OUTSIDE RECORDS SUMMARY | 2024-08-31 16:34 | XMS_ITS | Encounter Summary ---
Author Organization [facility] Address [address] [place] [address] Care Team Providers Care Black And White Printer Operator Name Role Phone Unavailable Primary Care Provider Unavailabl e Encounter Details Date Type Department Care Team (Late st Contact Info) Description 11/28/1998 Outpatient Historical [facility] Pediatrics [place] [address] [place] [address] Moises Guerrero Social History Tobacco Use Types Packs/Day Years Used Date Smoking Tobacco: Never Assessed Comments Unknown Sex and Gender Information Value Date Recorded Sex Assigned at Not on file Legal Sex Female 2:44 AM COMEDIAN Gender Identity Not on file Sexual Orientation Not on file documented as of this encounter Plan of Treatment Not on file documented as of this encounter Visit Diagnoses Not on filedocumented in this encounter
--- OUTSIDE RECORDS SUMMARY | 2024-08-31 16:34 | XMS_ITS | Encounter Summary ---
Author Organization [facility] Address [address] [place] [address] Care Team Providers Care Doweling Machine Operator Name Role Phone Unavailable Primary Care Provider Unavailabl e Encounter Details Date Type Department Care Team (Late st Contact Info) Description 03/22/2002 Outpatient Historical [facility] Pediatrics [address] [place] [address] Murtaza Mcnulty MD [address] [place] [address] Social History Tobacco Use Types Packs/Day Years Used Date Smoking Tobacco: Never Assessed Comments Unknown Sex and Gender Information Value Date Recorded Sex Assigned at Not on file Legal Sex Female 2:44 AM SLEEP SCIENTIST Gender Identity Not on file Sexual Orientation Not on file documented as of this encounter Plan of Treatment Not on file documented as of this encounter Visit Diagnoses Not on filedocumented in this encounter
--- OUTSIDE RECORDS SUMMARY | 2024-08-31 16:34 | XMS_ITS | Encounter Summary ---
Author Organization [facility] Address [address] [place] [address] Care Team Providers Care Loading Checker Name Role Phone Unavailable Primary Care Provider Unavailabl e Encounter Details Date Type Department Care Team (Late st Contact Info) Description 07/10/1998 Outpatient Historical [facility] Pediatrics [place] [address] [place] [address] Moises Guerrero Social History Tobacco Use Types Packs/Day Years Used Date Smoking Tobacco: Never Assessed Comments Unknown Sex and Gender Information Value Date Recorded Sex Assigned at Not on file Legal Sex Female 2:44 AM MASTIC 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
--- OUTSIDE RECORDS SUMMARY | 2024-08-31 16:34 | XMS_ITS | Encounter Summary ---
Author Organization [facility] Address [address] [place] [address] Care Team Providers Care Director Microbiology Name Role Phone Unavailable Primary Care Provider Unavailabl e Encounter Details Date Type Department Care Team (Late st Contact Info) Description 11/28/1998 Outpatient Historical [facility] Pediatrics [place] [address] [place] [address] Moises Guerrero Social History Tobacco Use Types Packs/Day Years Used Date Smoking Tobacco: Never Assessed Comments Unknown Sex and Gender Information Value Date Recorded Sex Assigned at Not on file Legal Sex Female 2:44 AM PRODUCTION SERVICE MANAGER Gender Identity Not on file Sexual Orientation Not on file documented as of this encounter Plan of Treatment Not on file documented as of this encounter Visit Diagnoses Not on filedocumented in this encounter
--- OUTSIDE RECORDS SUMMARY | 2024-08-31 16:34 | XMS_ITS | Encounter Summary ---
Author Organization [facility] Address [address] [place] [address] Care Team Providers Care Dialysis Clinical Manager Name Role Phone Unavailable Primary Care Provider Unavailabl e Encounter Details Date Type Department Care Team (Late st Contact Info) Description 10/25/1998 Outpatient Historical [facility] [place] [address] [place] [address] Moises Guerrero Social History Tobacco Use Types Packs/Day Years Used Date Smoking Tobacco: Never Assessed Comments Unknown Sex and Gender Information Value Date Recorded Sex Assigned at Not on file Legal Sex Female 2:44 AM CLINICAL INFORMATION SYSTEMS DIRECTOR Gender Identity Not on file Sexual Orientation Not on file documented as of this encounter Plan of Treatment Not on file documented as of this encounter Visit Diagnoses Not on filedocumented in this encounter
--- OUTSIDE RECORDS SUMMARY | 2024-08-31 16:34 | XMS_ITS | Encounter Summary ---
Author Organization [facility] Address [address] [place] [address] Care Team Providers Care Geoduck Diver Name Role Phone Unavailable Primary Care Provider Unavailabl e Encounter Details Date Type Department Care Team (Late st Contact Info) Description 02/06/2004 Outpatient Historical [facility] [address] [place] [address] Murtaza Mcnulty MD [address] [place] [id number] Social History Tobacco Use Types Packs/Day Years Used Date Smoking Tobacco: Never Assessed Comments Unknown Sex and Gender Information Value Date Recorded Sex Assigned at Not on file Legal Sex Female 2:44 AM CRIB TENDER Gender Identity Not on file Sexual Orientation Not on file documented as of this encounter Plan of Treatment Not on file documented as of this encounter Visit Diagnoses Not on filedocumented in this encounter
--- OUTSIDE RECORDS SUMMARY | 2024-08-31 16:34 | XMS_ITS | Encounter Summary ---
Author Organization [facility] Address [address] [place] [address] Care Team Providers Care Esthetician Permanent Makeup Artist Name Role Phone Unavailable Primary Care Provider Unavailabl e Encounter Details Date Type Department Care Team (Late st Contact Info) Description 08/25/2001 Outpatient Historical [facility] [place] [address] [facility] [address] [place] [address] Kashmir Gunn MD [address] [place] [address] Social History Tobacco Use Types Packs/Day Years Used Date Smoking Tobacco: Never Assessed Comments Unknown Sex and Gender Information Value Date Recorded Sex Assigned at Not on file Legal Sex Female 2:44 AM TRUCK CAR AND BUS CLEANER Gender Identity Not on file Sexual Orientation Not on file documented as of this encounter Plan of Treatment Not on file documented as of this encounter Visit Diagnoses Not on filedocumented in this encounter
--- OUTSIDE RECORDS SUMMARY | 2024-08-31 16:34 | XMS_ITS | Data Portability ---
Author Organization [employer], Main Office Address [address] [place] [address] Assessment No assessment recorded. Plan of Treatment [...] 2016, 39( ppl.1 ):s13 -s22 Not Available [facility] (Lab) [address] [place], [address], 08/02/2020 21:21:32 08/03/1908/02/2020 TSH + free T4, serum thyroid-stim ulating hormone 1.870 uIU/m L 0.465- 4.[address] [facility] (Lab) [address] [place], [address], 08/02/2020 18:47:19 08/03/1908/02/2020 T4, free, serum free T4 0.94 NG/dL 0.78-2 .[address] [facility] (Lab) [address] [place], [address], 08/02/2020 18:13:37 08/03/19 21 08/02/2020 pregn elio [...] 19 6,800 TO 42,90 [address] [facility] (Lab) [address] [place], [address], 08/02/2020 18:13:32 08/03/19 21 08/02/2020 vitam in D, 25-hy droxy , total , serum vd25oh 46.6 NG/mL 30-100 Vitam in D Statu s: Defic ient: <20 ng/mL Insuf ficie nt: 20-29 ng/mL Suffi cient : 30-10 0 ng/mL Not Available [facility] (Lab) [address] [place], [address], 08/02/2020 18:12:47 08/03/19 21 08/02/2020 lipid panel , serum cholesterol 127 mg/dL 140-19 9 low NIH JASON NSUS RECOM MENDA TION FOR GLENIS STERO L: ADULT CHILD LOW RISK: <200 <170 BORDE RLINE : <200- 239 ----- HIGH RISK: >240 >[address] [facility] (Lab) [address] [place], [address], 08/02/2020 17:46:51 08/03/19 21 08/02/2020 lipid panel , serum triglyceride s 62 mg/dL 0-150 NIH JASON NSUS REPOR T RECOM MENDA TION FOR TRIGL YCERI RENA: ADULT CHILD LOW RISK: <150 ----- BODER LINE: 150-1 99 ----- HIGH RISK: >200 ----- Not Available [facility] (Lab) [address] [place], [address], 08/02/2020 17:46:51 08/03/19 21 08/02/2020 lipid panel , serum HDL cholesterol 53 mg/dL 40- Not Available [facility] (Lab) [address] [place], [address], 08/02/2020 17:46:51 08/03/19 21 08/02/2020 lipid panel [...] WILL NOT BE REPOR KELI. Not Available [facility] (Lab) [address] [place], [address], 08/02/2020 17:46:51 08/03/1908/02/2020 CMP, serum or plasm a sodium 139 mmol/ L 137-14 [address] [facility] (Lab) [address] [place], [address], 08/02/2020 17:46:43 08/03/19 21 08/02/2020 CMP, serum or plasm a potassium 4.3 mmol/ L 3.5-5. [address] [facility] (Lab) [address] [place], [address], 08/02/2020 17:46:43 08/03/19 21 08/02/2020 CMP, serum or plasm a chloride 104 mmol/ L 98-[address] [facility] (Lab) [address] [place], [address], 08/02/2020 17:46:43 08/03/19 21 08/02/2020 CMP, serum or plasm a carbon dioxide 29 mmol/ L 22-30 Not Available [facility] (Lab) [address] [place], [address], 08/02/2020 17:46:43 08/03/19 21 08/02/2020 CMP, serum or plasm a agap 10.3 mmol/ L 14-22 low Not Available [facility] (Lab) [address] [place], [address], 08/02/2020 17:46:43 08/03/19 21 08/02/2020 CMP, serum or plasm a glucose 75 mg/dL 70-99 Not Available [facility] (Lab) [address] [place], [address], 08/02/2020 17:46:43 08/03/19 21 08/02/2020 CMP, serum or plasm a BUN 10 mg/dL 8-[address] [facility] (Lab) [address] [place], [address], 08/02/2020 17:46:43 08/03/19 21 08/02/2020 CMP, serum or plasm a creatinine 0.70 mg/dL 0.66-1 .[address] [facility] (Lab) [address] [place], [address], 08/02/2020 17:46:43 08/03/19 21 08/02/2020 CMP, serum or plasm a GFR >60 Refer ence Range : [place] ge GFR Healt hy Adult : >60 [...] lator can be locat ed on the [facility] websi te: [email or web address] :[email or web address] [email or web address] s/[email or web address] qi/gf r_cal culat or Not Available [facility] (Lab) [address] [place], [address], 08/02/2020 17:46:43 08/03/1908/02/2020 CMP, serum or plasm a alkaline phosphatase 51 U/L 38-126 Not Available [facility] (Lab) [address] [place], [address], 08/02/2020 17:46:43 08/03/1908/02/2020 CMP, serum or plasm a alanine aminotransfe rase 12 U/L 0-35 Not Available [facility] (Lab) [address] [place], [address], 08/02/2020 17:46:43 08/03/1908/0208/02/2020 CMP, serum or plasm a aspartate aminotransfe rase 21 U/L 15-37 Not Available [facility] (Lab) [address] [place], [address], 08/02/2020 17:46:43 08/03/19 21 08/02/2020 CMP, serum or plasm a bilirubin, total 0.40 mg/dL 0.20-1 .[address] [facility] (Lab) [address] [place], [address], 08/02/2020 17:46:43 08/03/19 21 08/02/2020 CMP, serum or plasm a calcium 9.7 mg/dL 8.4-10 .[address] [facility] (Lab) [address] [place], [address], 08/02/2020 17:46:43 08/03/19 21 08/02/2020 CMP, serum or plasm a total protein 7.3 g/dL 6.3-8. [address] [facility] (Lab) [address] [place], [address], 08/02/2020 17:46:43 08/03/19 21 08/02/2020 CMP, serum or plasm a albumin 4.7 g/dL 3.4-5. [address] [facility] (Lab) [address] [place], [address], 08/02/2020 17:46:43 08/03/19 21 08/02/2020 CMP, serum or plasm a globulin 2.6 g/dL 2.6-4. [address] [facility] (Lab) [address] [place], [address], 08/02/2020 17:46:43 08/03/19 21 08/02/2020 CMP, serum or plasm a A/G ratio 1.8 ratio 1.0-2. [address] [facility] (Lab) [address] [place], [address], 08/02/2020 17:46:43 08/03/19 21 08/02/2020 urina lysis compl ete, refle x cultu re color light- yellow Not Available [facility] (Lab) [address] [place], [address], 08/02/2020 17:27:27 08/03/19 21 08/02/2020 urina lysis compl ete, refle x cultu re appear turbid abnormal Not Available [facility] (Lab) [address] [place], [address], 08/02/2020 17:27:27 08/03/19 21 08/02/2020 urina lysis compl ete, refle x cultu re specific gravity 1.021 1.001- 1.[address] [facility] (Lab) [address] [place], [address], 08/02/2020 17:27:27 08/03/19 21 08/02/2020 urina lysis compl ete, refle x cultu re pH 7.5 pH_un its 5.0-9. [address] [facility] (Lab) [address] [place], [address], 08/02/2020 17:27:27 08/03/19 21 08/02/2020 urina lysis compl ete, refle x cultu re leukocytes negati ve carmencita/u L negati ve- Not Available [facility] (Lab) [address] [place], [address], 08/02/2020 17:27:27 08/03/19 21 08/02/2020 urina lysis compl ete, refle x cultu re nitrite negati ve negati ve- Not Available [facility] (Lab) [address] [place], [address], 08/02/2020 17:27:27 08/03/19 21 08/02/2020 urina lysis compl ete, refle x cultu re protein negati ve mg/dL negati ve- Not Available [facility] (Lab) [address] [place], [address], 08/02/2020 17:27:27 08/03/19 21 08/02/2020 urina lysis compl ete, refle x cultu re glucose normal mg/dL normal - Not Available [facility] (Lab) [address] [place], [address], 08/02/2020 17:27:27 08/03/19 21 08/02/2020 urina lysis compl ete, refle x cultu re ketones negati ve mg/dL negati ve- Not Available [facility] (Lab) [address] [place], [address], 08/02/2020 17:27:27 08/03/19 21 08/02/2020 urina lysis compl ete, refle x cultu re urobilinogen normal mg/dL normal - Not Available [facility] (Lab) [address] [place], [address], 08/02/2020 17:27:27 08/03/19 21 08/02/2020 urina lysis compl ete, refle x cultu re bilirubin negati ve mg/dL negati ve- Not Available [facility] (Lab) [address] [place], [address], 08/02/2020 17:27:27 08/03/19 21 08/02/2020 urina lysis compl ete, refle x cultu re blood negati ve mg/dL negati ve- Not Available [facility] (Lab) [address] [place], [address], 08/02/2020 17:27:27 08/03/19 21 08/02/2020 urina lysis compl ete, refle x cultu re white blood cells 0-8 /i??h pfi?? 0-[address] [facility] (Lab) [address] [place], [address], 08/02/2020 17:27:27 08/03/19 21 08/02/2020 urina lysis compl ete, refle x cultu re red blood cells 0-4 /i??h pfi?? 0-[address] [facility] (Lab) [address] [place], [address], 08/02/2020 17:27:27 08/03/19 21 08/02/2020 urina lysis compl ete, refle x cultu re bacteria none Not Available [facility] (Lab) [address] [place], [address], 08/02/2020 17:27:27 08/03/19 21 08/02/2020 urina lysis compl ete, refle x cultu re squamous epithelial modera te /i??l pfi?? abnormal Not Available [facility] (Lab) [address] [place], [address], 08/02/2020 17:27:27 08/03/19 21 08/02/2020 urina lysis compl ete, refle x cultu re amorphous crystal occasi onal /i??h pfi?? abnormal Not Available [facility] (Lab) [address] [place], [address], 08/02/2020 17:27:27 08/03/19 21 08/02/2020 CBC w/ auto diff white blood cells 11.5 x10'3 /uL 4.2-10 .8 high Not Available [facility] (Lab) [address] [place], [address], 08/02/2020 16:48:23 08/03/19 21 08/02/2020 CBC w/ auto diff red blood cells 4.54 x10'6 /uL 3.80-5 .20 Not Available [facility] (Lab) [address] [place], [address], 08/02/2020 16:48:23 08/03/19 21 08/02/2020 CBC w/ auto diff hemoglobin 13.4 g/dL 12.0-1 5.6 Not Available [facility] (Lab) [address] [place], [address], 08/02/2020 16:48:23 08/03/19 21 08/02/2020 CBC w/ auto diff hematocrit 40.3 % 35.7-4 5.[address] [facility] (Lab) [address] [place], [address], 08/02/2020 16:48:23 08/03/19 21 08/02/2020 CBC w/ auto diff mean red cell volume 88.8 fL 82.0-9 9.[address] [facility] (Lab) [address] [place], [address], 08/02/2020 16:48:23 08/03/19 21 08/02/2020 CBC w/ auto diff mean red cell hemoglobin 29.5 pg 27.0-3 3.[address] [facility] (Lab) [address] [place], [address], 08/02/2020 16:48:23 08/03/19 21 08/02/2020 CBC w/ auto diff mean RBC HGB concentratio n 33.3 g/dL 31.0-3 6.[address] [facility] (Lab) [address] [place], [address], 08/02/2020 16:48:23 08/03/19 21 08/02/2020 CBC w/ auto diff red cell distribution width 13.2 % 11.8-1 5.5 Not Available [facility] (Lab) [address] [place], [address], 08/02/2020 16:48:23 08/03/19 21 08/02/2020 CBC w/ auto diff platelets 304 x10'3 /uL 150-40 [address] [facility] (Lab) [address] [place], [address], 08/02/2020 16:48:23 08/03/19 21 08/02/2020 CBC w/ auto diff mean platelet volume 10.1 fL 9.0-12 .4 Not Available [facility] (Lab) [address] [place], [address], 08/02/2020 16:48:23 08/03/19 21 08/02/2020 CBC w/ auto diff neutrophils 66.5 % 39.0-7 2.0 Not Available [facility] (Lab) [address] [place], [address], 08/02/2020 16:48:23 08/03/19 21 08/02/2020 CBC w/ auto diff lymphocytes 18.2 % 16.0-4 7.[address] [facility] (Lab) [address] [place], [address], 08/02/2020 16:48:23 08/03/19 21 08/02/2020 CBC w/ auto diff monocytes 8.9 % 5.0-12 .[address] [facility] (Lab) [address] [place], [address], 08/02/2020 16:48:23 08/03/19 21 08/02/2020 CBC w/ auto diff eosinophils 4.8 % 1.0-7. [address] [facility] (Lab) [address] [place], [address], 08/02/2020 16:48:23 08/03/19 21 08/02/2020 CBC w/ auto diff basophils 0.8 % 0.0-2. 0 Not Available [facility] (Lab) [address] [place], [address], 08/02/2020 16:48:23 08/03/19 21 08/02/2020 CBC w/ auto diff immature granulocytes 0.8 % 0.00-0 .50 high Not Available [facility] (Lab) [address] [place], [address], 08/02/2020 16:48:23 08/03/19 21 08/02/2020 CBC w/ auto diff neutrophils, absolute count 7.66 x10'3 /uL 1.5-8. [address] [facility] (Lab) [address] [place], [address], 08/02/2020 16:48:23 08/03/19 21 08/02/2020 CBC w/ auto diff lymphocytes, absolute count 2.09 x10'3 /uL 1.07-3 .[address] [facility] (Lab) [address] [place], [address], 08/02/2020 16:48:23 08/03/19 21 08/02/2020 CBC w/ auto diff monocytes, absolute count 1.03 x10'3 /uL 0.29-0 .99 high Not Available [facility] (Lab) [address] [place], [address], 08/02/2020 16:48:23 08/03/19 21 08/02/2020 CBC w/ auto diff eosinophils, absolute count 0.55 x10'3 /uL 0.02-0 .53 high Not Available [facility] (Lab) [address] [place], [address], 08/02/2020 16:48:23 08/03/19 21 08/02/2020 CBC w/ auto diff basophils, absolute count 0.09 x10'3 /uL 0.01-0 .08 high Not Available [facility] (Lab) [address] [place], [address], 08/02/2020 16:48:23 08/03/19 21 08/02/2020 CBC w/ auto diff immature granulocytes ,absolute 0.09 x10'3 /uL 0.00-0 .05 high Not Available [facility] (Lab) [address] [place], [address], 08/02/2020 16:48:23 08/03/19 21 08/02/2020 CBC w/ auto diff nucleated red blood cells 0.0 % -0 Not Available [facility] (Lab) [address] [place], [address], 08/02/2020 16:48:23 08/03/19 21 08/02/2020 CBC w/ auto diff NRBC# 0.00 x10'3 /uL Not Available [facility] (Lab) [address] [place], [address], 08/02/2020 16:48:23 08/27/19 21 08/27/2020 CT, NG, TRICH VAG BY LATISHA chlamydia by LATISHA negati ve negati ve Not Available [facility] ([facility]) [address] [place], [address], 08/28/2020 06:12:24 08/27/1908/27/2020 CT, NG, TRICH VAG BY LATISHA gonococcus by LATISHA negati ve negati ve Not Available [facility] ([facility]) [address] [place], [address], 08/28/2020 06:12:24 08/27/1908/27/2020 CT, NG, TRICH VAG BY LATISHA trich vag by LATISHA negati ve negati ve Not Available [facility] ([facility]) [address] [place], [address], 08/28/2020 06:12:24 08/28/19 21 08/27/2020 pregn elio test, urine HCG negati ve Not Available [facility] [place] [address], [place], [address], 08/26/2020 16:54:07 08/14/19 21 08/12/2020 US, pelvi s, trans abdom inal + trans vagin al [facility] [address], [place] [address] [employer] t Name: CHARIS ODONNELL Access ion #: [id number] Sex: F : 1995 0 Locati [...] the pelvis . Page 1 of 2 [facility] Jordan t Name: CHARIS ODONNELL Access ion #: [id number] Sex: F : 1995 0 Exam [...] 7:23 AM (CT) Page 2 of [id number] [facility] (Imaging) [address] [place], [address], 04/29/2022 20:21:16 Result Notes None recorded. Problems Name Problem SNOMED Code Status Onset Date Resolution Date Notes Provider Name and Address Organization Details Recorded Time Depressive disorder 41440080 Active Not Available [facility] 3 20:20:07 Anxiety 78930592 Active Not Available [facility] 3 20:20:07 Problem Notes None recorded. Procedures Surgical History Date Name Laterality Status Provider Name and Address Organization Details Recorded Time Sinus Surgery completed Not Available [facility] 04/29/2022 20:19:31 Back Surgery completed Not Available [facility] 04/29/2022 20:19:31 Remove tonsils and adenoids completed Not Available [facility] 04/29/2022 20:19:31 Imaging Results None recorded. Procedure Notes None recorded. Medical Equipment None Reported. Allergies Allergen ID Allergen Name Allergen Category Reaction Reaction Severity Criticality Documentation Date Start Date Code Code System Note Provider Name and Address Organization Details Recorded Time 97733 Substance with sulfonami de structure and antibacte rial mechanism of action (substanc e) medicatio n rash Not available Not available 04/29/2022 02317 8003 SNOMED Not Available [facility] 3 20:21:14 Medications Name Sig Start Date [...] Heart rate Body temperature Body weight Systolic And Diastolic Provider Name and Address Organization Details Last Updated DateTime 1 28.2 kg/m2 160.02 cm 100 % 100 % 92 /min 98.1 [degF] 93029.1 9 g 112/82 mm[Hg] Not Available [facility] 3 20:19:57 Date Recorded Body mass index (BMI) Body height Oxygen saturation Oxygen saturation in Arterial blood by Pulse oximetry Heart rate Body temperature Body weight Systolic And Diastolic Provider Name and Address Organization Details Last Updated DateTime 1 28 kg/m2 160.02 cm 98 % 98 % 85 /min 98 [degF] 42648.5 9 g 116/80 mm[Hg] Not Available [facility] 3 20:19:57 Date Recorded Body mass index (BMI) Body height Body weight Systolic And Diastolic Provider Name and Address Organization Details Last Updated DateTime 08/26/2020 27.8 kg/m2 160.02 cm 83950 g 120/80 mm[Hg] Not Available [facility] 04/29/2022 20:19:57 Date Recorded Body mass index (BMI) Body height Body temperature Body weight Systolic And Diastolic Provider Name and Address Organization Details Last Updated DateTime 11/25/2020 28.3 kg/m2 160.02 cm 97.9 [degF] 16640.7 8 g 119/78 mm[Hg] Not Available [facility] 20:19:57 Social History Question Answer Notes LastModified by [employer] Details LastModified Time Tobacco Smoking Status Never Smoker Not Available [facility] 04/29/2022 20:19:29 What Is Your Level Of Caffeine Consumption? Moderate [id number] Information not available 04/29/2022 How Much Tobacco Do You Chew? None MIGRATION.503135 9050 Information not available 04/29/2022 In The 14 Days Before Symptom Onset, Have You Had Close Contact With A Laboratory-confirm ed COVID-19 While That Case Was Ill? No [id number].[id number] 1931 Information not available 04/29/2022 In The 14 Days Before Symptom Onset, Have You Had Close Contact With A Person Who Is Under Investigation For COVID-19 While That Person Was Ill? No [id number].[id number] Information not available 04/29/2022 What Type Of Diet Are You Following? REGULAR MIGRATION.[id number] 7218 Information not available 04/29/2022 Which Illicit Or Recreational Drugs Have You Used? No MIGRATION.320329 2964 Information not available 04/29/2022 Are There Any Guns Present In Your Home? No MIGRATION.593184 2358 Information not available 04/29/2022 What Was The Date Of Your Most Recent Tobacco Screening? 08/09/2020 MIGRATION.725187 4324 Information not available 04/29/2022 Are You Passively Exposed To Smoke? Yes MIGRATION.525726 4412 Information not available 04/29/2022 How Much Tobacco Do You Smoke? No MIGRATION.355821 6329 Information not available 04/29/2022 Sex: Female Functional Status Question Answer Note LastModified by [employer] ion Details LastModified Time What is your level of alcohol consumption? None MIGRATION.76126 89213 Information not available 04/29/2022 Do you or have you ever used smokeless tobacco? Never used smokeless tobacco MIGRATION.21997 35262 Information not available 04/29/2022 Do you or have you ever used e-cigarettes or vape? Current user of electronic cigarettes Vape occasionally MIGRATION.72058 16276 Information not available 04/29/2022 What is your exercise level? None MIGRATION.08533 01300 Information not available 04/29/2022 Mental Status None recorded. Family History Relationship Description Onset Age of this Age Resolved Age Notes LastModified by Organization Details LastModified Time Mother Diabetes mellitus MIGRATION.070 [id number] Not available 04/29/2022 20:19:32 Mother Anxiety disorder MIGRATION.760 [id number] Not available 04/29/2022 20:19:32 Mother Depressive disorder MIGRATION.764 [id number] Not available 04/29/2022 20:19:32 Sister Anxiety disorder MIGRATION.857 [id number] Not available 04/29/2022 20:19:32 Sister Anxiety disorder MIGRATION.159 [id number] Not available 04/29/2022 20:19:32 Sister Depressive disorder MIGRATION.961 [id number] Not available 04/29/2022 20:19:33 Sister Depressive disorder MIGRATION.394 [id number] Not available 04/29/2022 20:19:33 Medical History Condition Response ECZEMA Y ANXIETY DISORDER Y SLEEP APNEA Y CHICKENPOX Y SKIN PROBLEMS Y BACK / NECK PROBLEMS Y DEPRESSION (INCLUDING POST ) Y HEARTBURN / REFLUX Y HAVE YOU BEEN HOSPITALIZED OR SEEN IN [facility] IN THE PAST YEAR ? Y Gynecological [...] SNOMED-CT Code Diagnosis ICD10 Code Diagnosis Note [id number] MD TERRY [facility] [address] [facility] [place] [address] 08/02/2020 00:00:00 08/02/2020 15:57:22 [id number] Cristine kelly MD [facility] [address] [place], [address] [address] 08/09/2020 00:00:00 08/09/2020 17:12:13 [id number] S_Histor ic_[facility] _ATHENA_M IGRATION_ DEFAULT_1 _1 , 08/26/2020 00:00:00 08/26/2020 18:24:25 [id number] S_Histor [facility] _ATHENA_M IGRATION_ DEFAULT_1 _1 , 11/25/2020 00:00:00 11/25/2020 16:23:15 [id number] Annabelle Denney NP [facility] [address] [place] [address] [address] 08/13/2020 00:00:00 08/13/2020 11:06:48 [id number] Annabelle Denney NP [facility] [address] [place] [address] [address] 10/02/2020 00:00:00 10/02/2020 18:04:03 [id number] Annabelle Denney NP [facility] [address] [place] [address] [address] 10/30/2020 00:00:00 10/30/2020 14:54:00 [id number] Annabelle Denney NP [facility] [address] [place] [address] [address] 11/28/2020 00:00:00 11/28/2020 15:54:58 [id number] Annabelle Denney NP [facility] [address] [place] [address] [address] 12/18/2020 00:00:00 12/18/2020 16:46:49 Health Concerns Section Related Observation LastModified by Organization Detai ls LastModified Time None Recorded Concern Status LastModified by Organization Details LastModified Time None Recorded Advance Directives Directive None Recorded Payers Insurance Date Sequence Insurance Name Policy Number Policy Sharma Covered Member ID Sharma Member ID Guarantor Name 06/28/2023 1 [facility] (MEDICAID HMO) [id number] Charis Peres [id number] Charis Peres OBGyn Episode No OBEpisode recorded.
--- OUTSIDE RECORDS SUMMARY | 2024-08-31 16:34 | XMS_ITS | Encounter Summary ---
Author Organization [facility] Address 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
--- OUTSIDE RECORDS SUMMARY | 2024-08-31 16:34 | XMS_ITS | Encounter Summary ---
Author Organization [facility] Address 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
--- OUTSIDE RECORDS SUMMARY | 2024-08-31 16:34 | XMS_ITS | Encounter Summary ---
Author Organization [facility] Address 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
--- OUTSIDE RECORDS SUMMARY | 2024-08-31 16:34 | XMS_ITS | Encounter Summary ---
Author Organization [facility] Address 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
--- OUTSIDE RECORDS SUMMARY | 2024-08-31 16:34 | XMS_ITS | Encounter Summary ---
Author Organization [facility] Address [address] [place] [address] Care Team Providers Care Vortex Operator Name Role Phone Unavailable Primary Care Provider Unavailabl e Encounter Details Date Type Department Care Team (Late st Contact Info) Description 02/12/2004 Outpatient Historical [facility] Pediatrics [address] [place] [address] Murtaza Mcnulty MD [address] [place] [address] Social History Tobacco Use Types Packs/Day Years Used Date Smoking Tobacco: Never Assessed Comments Unknown Sex and Gender Information Value Date Recorded Sex Assigned at Not on file Legal Sex Female 2:44 AM PATTERN AND 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
--- OUTSIDE RECORDS SUMMARY | 2024-08-31 16:34 | XMS_ITS | Encounter Summary ---
Author Organization [facility] Address [address] [place] [address] Care Team Providers Care Record Press Tender Name Role Phone Unavailable Primary Care Provider Unavailabl e Encounter Details Date Type Department Care Team (Late st Contact Info) Description 01/14/1998 Outpatient Historical [facility] Pediatrics [place] [address] [place] [address] Moises Guerrero Social History Tobacco Use Types Packs/Day Years Used Date Smoking Tobacco: Never Assessed Comments Unknown Sex and Gender Information Value Date Recorded Sex Assigned at Not on file Legal Sex Female 2:44 AM DINKEY ENGINE 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
--- OUTSIDE RECORDS SUMMARY | 2024-08-31 16:34 | XMS_ITS | Encounter Summary ---
Author Organization [facility] Address [address] [place] [address] Care Team Providers Care Pressroom Supervisor Name Role Phone Unavailable Primary Care Provider Unavailabl e Encounter Details Date Type Department Care Team (Late st Contact Info) Description 11/15/2003 Outpatient Historical [facility] Pediatric[facility] [place] [address] [facility] [address] [place] [address] Kashmir Gunn MD [address] [facility] [address] [place] [address] Social History Tobacco Use Types Packs/Day Years Used Date Smoking Tobacco: Never Assessed Comments Unknown Sex and Gender Information Value Date Recorded Sex Assigned at Not on file Legal Sex Female 2:44 AM PEDIATRIC DENTAL 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
--- OUTSIDE RECORDS SUMMARY | 2024-08-31 16:34 | XMS_ITS | Encounter Summary ---
Author Organization [facility] Address 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
--- OUTSIDE RECORDS SUMMARY | 2024-08-31 16:34 | XMS_ITS | Encounter Summary ---
Author Organization [facility] Address [address] [place] [address] Care Team Providers Care Predatory Game Hunter Name Role Phone Unavailable Primary Care Provider Unavailabl e Encounter Details Date Type Department Care Team (Late st Contact Info) Description 07/09/2004 Outpatient Historical [facility] Pediatrics [address] [place] [address] Murtaza Mcnulty MD [address] [place] [address] Social History Tobacco Use Types Packs/Day Years Used Date Smoking Tobacco: Never Assessed Comments Unknown Sex and Gender Information Value Date Recorded Sex Assigned at Not on file Legal Sex Female 2:44 AM SHELTER SUPERVISOR Gender Identity Not on file Sexual Orientation Not on file documented as of this encounter Plan of Treatment Not on file documented as of this encounter Visit Diagnoses Not on filedocumented in this encounter
--- OUTSIDE RECORDS SUMMARY | 2024-08-31 16:34 | XMS_ITS | Encounter Summary ---
Author Organization [facility] Address [address] [place] [address] Care Team Providers Care Director Microbiology Name Role Phone Unavailable Primary Care Provider Unavailabl e Encounter Details Date Type Department Care Team (Late st Contact Info) Description 02/13/2003 Outpatient Historical [facility] Pediatrics [address] [place] [address] Murtaza Mcnulty MD [address] [place] [address] Social History Tobacco Use Types Packs/Day Years Used Date Smoking Tobacco: Never Assessed Comments Unknown Sex and Gender Information Value Date Recorded Sex Assigned at Not on file Legal Sex Female 2:44 AM DIRECTOR OF CAPITAL GIVING Gender Identity Not on file Sexual Orientation Not on file documented as of this encounter Plan of Treatment Not on file documented as of this encounter Visit Diagnoses Not on filedocumented in this encounter
== END 2024-08-31 16:30 | disposition home or self-care (01) ==
PROVIDERS: PCP Emergency Medicine; Visit Provider Obstetrics & Gynecology Gynecology
DX: O26.852 Spotting complicating pregnancy, second trimester (principal); Z3A.00 Weeks of gestation of pregnancy not specified
CPT/HCPCS: 76816

== ENCOUNTER 2024-10-16 15:55 | Outpatient (CLI) | payer OTHER, SELFPAY ==
--- NOTE | ~2024-10-16 | US_ITS ---
EXAMINATION: US OB follow up DATE: 10/16/2024 17:15 INDICATION: survey TECHNIQUE: Real-time transabdominal obstetric ultrasound. FINDINGS: Comparison to multiple prior studies sequentially, with oldest reviewed study dated 06/16/2024. There is a single living fetus in variable presentation. Placental margin to the cervix is 4.3 cm. The placenta is anterior without placenta previa. cardiac activity and movement is noted with a heart rate of 144 beats per minute. The amniotic fluid volume is subjectively normal. The following biometric data were obtained: BPD: 62mm corresponds to gestational age 25 weeks 0 days. Head circumference: 228mm corresponds to gestational age 24 weeks 6 days. Abdominal circumference: 212mm corresponds to gestational age 25 weeks 5 days. Femur length: 48mm corresponds to gestational age 26 weeks 0 days. Estimated weight: 840grams +/- 126grams, 71%. Limited survey demonstrates normal four-chamber heart and diaphragm. IMPRESSION: 1. Single living intrauterine in variable presentation with an estimated gestational age of 25 weeks 0 days by inititial ultrasound. Appropriate interval growth. 2. Normal placenta. 3: Normal limited survey. Reviewed, dictated and finalized at location A. IMPRESSION: 1. Single living intrauterine in variable presentation with an estim ated gestational age of 25 weeks 0 days by inititial ultrasound. Appropriate i nterval growth. 2. Normal placenta. 3: Normal limited survey.
--- OUTSIDE RECORDS SUMMARY | 2024-10-16 16:08 | XMS_ITS | Encounter Summary ---
Author Organization [facility] Address [address] [place] [address] Care Team Providers Care Svp Monetization Name Role Phone Unavailable Primary Care Provider Unavailabl e Encounter Details Date Type Department Care Team (Late st Contact Info) Description 06/04/2003 Outpatient Historical [facility] Pediatrics [address] [place] [address] Murtaza Mcnulty MD [address] [place] [address] Social History Tobacco Use Types Packs/Day Years Used Date Smoking Tobacco: Never Assessed Comments Unknown Sex and Gender Information Value Date Recorded Sex Assigned at Not on file Legal Sex Female 2:44 AM POLICE AIDE Gender Identity Not on file Sexual Orientation Not on file documented as of this encounter Plan of Treatment Not on file documented as of this encounter Visit Diagnoses Not on filedocumented in this encounter
--- OUTSIDE RECORDS SUMMARY | 2024-10-16 16:08 | XMS_ITS | Encounter Summary ---
Author Organization [facility] Address [address] [place] [address] Care Team Providers Care Secondary Teacher Name Role Phone Unavailable Primary Care Provider Unavailabl e Encounter Details Date Type Department Care Team (Late st Contact Info) Description 11/15/2003 Outpatient Historical [facility] Pediatrics [place] [address] [facility] [address] [place] [address] Kashmir Gunn MD [address] [facility] [address] [place] [address] Social History Tobacco Use Types Packs/Day Years Used Date Smoking Tobacco: Never Assessed Comments Unknown Sex and Gender Information Value Date Recorded Sex Assigned at Not on file Legal Sex Female 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
--- OUTSIDE RECORDS SUMMARY | 2024-10-16 16:08 | XMS_ITS | Encounter Summary ---
Author Organization [facility] Address [address] [place] [address] Care Team Providers Care Farm Mechanic Name Role Phone Unavailable Primary Care Provider Unavailabl e Encounter Details Date Type Department Care Team (Late st Contact Info) Description 02/13/2003 Outpatient Historical [facility] Pediatrics [address] [place] [address] Murtaza Mcnulty MD [address] [place] [address] Social History Tobacco Use Types Packs/Day Years Used Date Smoking Tobacco: Never Assessed Comments Unknown Sex and Gender Information Value Date Recorded Sex Assigned at Not on file Legal Sex Female 2: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
--- OUTSIDE RECORDS SUMMARY | 2024-10-16 16:08 | XMS_ITS | Encounter Summary ---
Author Organization [facility] Address [address] [place] [address] Care Team Providers Care Director Engineering Name Role Phone Unavailable Primary Care Provider Unavailabl e Encounter Details Date Type Department Care Team (Late st Contact Info) Description 03/05/2001 Outpatient Historical [facility] Pediatrics [place] [address] [facility] [address] [place] [address] Luis Conklin MD [address] [place] [address] Social History Tobacco Use Types Packs/Day Years Used Date Smoking Tobacco: Never Assessed Comments Unknown Sex and Gender Information Value Date Recorded Sex Assigned at Not on file Legal Sex Female 2:44 AM CYLINDER STEAMER Gender Identity Not on file Sexual Orientation Not on file documented as of this encounter Plan of Treatment Not on file documented as of this encounter Visit Diagnoses Not on filedocumented in this encounter
--- OUTSIDE RECORDS SUMMARY | 2024-10-16 16:08 | XMS_ITS | Encounter Summary ---
Author Organization [facility] Address [address] [place] [address] Care Team Providers Care Cigarette Filter Inspector Name Role Phone Unavailable Primary Care Provider Unavailabl e Encounter Details Date Type Department Care Team (Late st Contact Info) Description 06/12/1999 Outpatient Historical [facility] Pediatrics [place] [address] [place] [address] Moises Guerrero Social History Tobacco Use Types Packs/Day Years Used Date Smoking Tobacco: Never Assessed Comments Unknown Sex and Gender Information Value Date Recorded Sex Assigned at Not on file Legal Sex Female 2:44 AM CAFETERIA CASHIER Gender Identity Not on file Sexual Orientation Not on file documented as of this encounter Plan of Treatment Not on file documented as of this encounter Visit Diagnoses Not on filedocumented in this encounter
--- OUTSIDE RECORDS SUMMARY | 2024-10-16 16:08 | XMS_ITS | Encounter Summary ---
Author Organization [facility] Address [address] [place] [address] Care Team Providers Care Construction Crew Member Name Role Phone Unavailable Primary Care Provider Unavailabl e Encounter Details Date Type Department Care Team (Late st Contact Info) Description 05/31/1998 Outpatient Historical [facility] Pediatrics [address] [place] [address] Moises Guerrero Social History Tobacco Use Types Packs/Day Years Used Date Smoking Tobacco: Never Assessed Comments Unknown Sex and Gender Information Value Date Recorded Sex Assigned at Not on file Legal Sex Female 2:44 AM U.S. REPRESENTATIVE Gender Identity Not on file Sexual Orientation Not on file documented as of this encounter Plan of Treatment Not on file documented as of this encounter Procedures Procedure Name Priority Date/Time Associated Diagnosis Comments CHG POLIOVIRUS VACCINE LIVE ORAL VFC 05/31/1998 12:00 AM U.S. REPRESENTATIVE documented in this encounter Visit Diagnoses Not on filedocumented in this encounter
--- OUTSIDE RECORDS SUMMARY | 2024-10-16 16:08 | XMS_ITS | Encounter Summary ---
Author Organization [facility] Address [address] [place] [address] Care Team Providers Care Clay Mixer Name Role Phone Unavailable Primary Care Provider Unavailabl e Encounter Details Date Type Department Care Team (Late st Contact Info) Description 05/31/1998 Outpatient Historical [facility] Pediatrics [address] [place] [address] Moises Guerrero Social History Tobacco Use Types Packs/Day Years Used Date Smoking Tobacco: Never Assessed Comments Unknown Sex and Gender Information Value Date Recorded Sex Assigned at Not on file Legal Sex Female 2:44 AM OVER SHORT AND DAMAGE CLERK Gender Identity Not on file Sexual Orientation Not on file documented as of this encounter Plan of Treatment Not on file documented as of this encounter Procedures Procedure Name Priority Date/Time Associated Diagnosis Comments CHG HEPATITIS B VACCINE PED ADOL IM 3 DOSE VFC 05/31/1998 12:00 AM OVER SHORT AND DAMAGE CLERK CHG DTAP VACCINE <7 YO IM VFC 05/31/1998 12:00 AM OVER SHORT AND DAMAGE CLERK documented in this encounter Visit Diagnoses Not on filedocumented in this encounter
--- OUTSIDE RECORDS SUMMARY | 2024-10-16 16:08 | XMS_ITS | Encounter Summary ---
Author Organization [facility] Address [address] [place] [address] Care Team Providers Care Research Clerk Name Role Phone Unavailable Primary Care Provider Unavailabl e Encounter Details Date Type Department Care Team (Late st Contact Info) Description 08/11/1999 Outpatient Historical [facility] Pediatrics [place] [address] [place] [address] Moises Guerrero Social History Tobacco [...]
--- OUTSIDE RECORDS SUMMARY | 2024-10-16 16:08 | XMS_ITS | Encounter Summary ---
Author Organization [facility] Address [address] [place] [address] Care Team Providers Care Biometric Screener Name Role Phone Unavailable Primary Care Provider Unavailabl e Encounter Details Date Type Department Care Team (Late st Contact Info) Description 06/01/2000 Outpatient Historical [facility] Pediatrics [place] [address] [facility] [address] [place] [address] Kashmir Gunn MD [address] [facility] [address] [place] [address] Social History Tobacco Use Types Packs/Day Years Used Date Smoking Tobacco: Never Assessed Comments Unknown Sex and Gender Information Value Date Recorded Sex Assigned at Not on file Legal Sex Female 2:44 AM SPECIAL LIBRARIAN Gender Identity Not on file Sexual Orientation Not on file documented as of this encounter Plan of Treatment Not on file documented as of this encounter Visit Diagnoses Not on filedocumented in this encounter
--- OUTSIDE RECORDS SUMMARY | 2024-10-16 16:08 | XMS_ITS ---
Author Organization [facility] Address Unknown Care Team Providers Care Materials Branch Chief Name Role Phone Unavailable Primary Care Physician Unavailab le Results * [UNITY] ANEUPLOIDY NIPT Performed by: [employer] Component Value Range Date Fraction 8.2% 07/24/2024 03 :44 pm UTC Sex Chromosome Aneuploidy NOT DETECTED 03:44 pm UTC Monosomy X LOW RISK <1 in 10,000 2024 03:44 pm UTC Trisomy 13 LOW RISK <1 in 10,000 2024 03:44 pm UTC Trisomy 18 LOW RISK <1 in 10,000 2024 03:44 pm UTC Trisomy 21 LOW RISK <1 in 10,000 2024 03:44 pm UTC Sex FEMALE 07/24/2024 03:4 4 pm UTC Gestation CAVANAUGH 07/25/19 03:44 pm UTC For detailed report, see PDF See PDF 07/24/2024 03:44 pm UTC 07/24/2024 03:4 4 pm UTC Social History Observation Value Start Date End Date
--- OUTSIDE RECORDS SUMMARY | 2024-10-16 16:08 | XMS_ITS | Encounter Summary ---
Author Organization [facility] Address [address] [place] [address] Care Team Providers Care Magnetic Resonance Imaging Director Name Role Phone Unavailable Primary Care Provider Unavailabl e Encounter Details Date Type Department Care Team (Late st Contact Info) Description 01/07/1998 Outpatient Historical [facility] Pediatrics [place] [address] [place] [address] Moises Guerrero Social History Tobacco Use Types Packs/Day Years Used Date Smoking Tobacco: Never Assessed Comments Unknown Sex and Gender Information Value Date Recorded Sex Assigned at Not on file Legal Sex Female 2:44 AM SPRAY UNIT FEEDER Gender Identity Not on file Sexual Orientation Not on file documented as of this encounter Plan of Treatment Not on file documented as of this encounter Visit Diagnoses Not on filedocumented in this encounter
--- OUTSIDE RECORDS SUMMARY | 2024-10-16 16:08 | XMS_ITS | Encounter Summary ---
Author Organization [facility] Address [address] [place] [address] Care Team Providers Care Pocket Operator Name Role Phone Unavailable Primary Care Provider Unavailabl e Encounter Details Date Type Department Care Team (Late st Contact Info) Description 09/21/2000 Outpatient Historical [facility] Pediatrics [place] [address] [facility] [address] [place] [address] Edgar Morton MD [address] [facility] [address] [place] [address] Social History Tobacco Use Types Packs/Day Years Used Date Smoking Tobacco: Never Assessed Comments Unknown Sex and Gender Information Value Date Recorded Sex Assigned at Not on file Legal Sex Female 2:44 AM WELDER FITTER APPRENTICE Gender Identity Not on file Sexual Orientation Not on file documented as of this encounter Plan of Treatment Not on file documented as of this encounter Visit Diagnoses Not on filedocumented in this encounter
--- OUTSIDE RECORDS SUMMARY | 2024-10-16 16:08 | XMS_ITS | Encounter Summary ---
Author Organization [facility] Address [address] [place] [address] Care Team Providers Care Motorcycle Racer Name Role Phone Unavailable Primary Care Provider Unavailabl e Encounter Details Date Type Department Care Team (Late st Contact Info) Description 08/23/1998 Outpatient Historical [facility] Pediatrics [place] [address] [place] [address] Moises Guerrero Social History Tobacco Use Types Packs/Day Years Used Date Smoking Tobacco: Never Assessed Comments Unknown Sex and Gender Information Value Date Recorded Sex Assigned at Not on file Legal Sex Female 2:44 AM MUD ENGINEER Gender Identity Not on file Sexual Orientation Not on file documented as of this encounter Plan of Treatment Not on file documented as of this encounter Visit Diagnoses Not on filedocumented in this encounter
--- OUTSIDE RECORDS SUMMARY | 2024-10-16 16:08 | XMS_ITS | Encounter Summary ---
Author Organization [facility] Address [address] [place] [address] Care Team Providers Care Waste Picker Name Role Phone Unavailable Primary Care Provider Unavailabl e Encounter Details Date Type Department Care Team (Late st Contact Info) Description 01/06/1999 Outpatient Historical [facility] Pediatrics [place] [address] [place] [address] Moises Guerrero Social History Tobacco Use Types Packs/Day Years Used Date Smoking Tobacco: Never Assessed Comments Unknown Sex and Gender Information Value Date Recorded Sex Assigned at Not on file Legal Sex Female 2:44 AM PRACTICE PERFORMANCE MANAGER Gender Identity Not on file Sexual Orientation Not on file documented as of this encounter Plan of Treatment Not on file documented as of this encounter Visit Diagnoses Not on filedocumented in this encounter
--- OUTSIDE RECORDS SUMMARY | 2024-10-16 16:08 | XMS_ITS | Encounter Summary ---
Author Organization [facility] Address [address] [place] [address] Care Team Providers Care Civil Draftsman Name Role Phone Unavailable Primary Care Provider Unavailabl e Encounter Details Date Type Department Care Team (Late st Contact Info) Description 12/17/1998 Outpatient Historical [facility] Pediatrics [place] [address] [place] [address] Moises Guerrero Social History Tobacco Use Types Packs/Day Years Used Date Smoking Tobacco: Never Assessed Comments Unknown Sex and Gender Information Value Date Recorded Sex Assigned at Not on file Legal Sex Female 2:44 AM CLIP AND HANGER ATTACHER Gender Identity Not on file Sexual Orientation Not on file documented as of this encounter Plan of Treatment Not on file documented as of this encounter Visit Diagnoses Not on filedocumented in this encounter
--- OUTSIDE RECORDS SUMMARY | 2024-10-16 16:08 | XMS_ITS | Clinical Summary ---
Author Organization [facility] Address [address] [place] [address] Phone Care Team Providers Care Social Media Director Name Role Phone Unavailable Primary Care [...] file Legal Sex Female 2:44 AM PARTS CLERK PLANT MAINTENANCE Gender Identity Not on file Sexual Orientation Not on file Occupation Industry Job Start Date Job End Date Not on file Not on file Not on file Not on file Last Filed Vital Signs Vital Sign Reading Time Taken Comments Blood Pressure 110/80 01/28/2016 11:54 AM PARTS CLERK PLANT MAINTENANCE Pulse 101 01/28/2016 11:54 AM PARTS CLERK PLANT MAINTENANCE Temperature 37.1 C (98.7 F) 01/28/2016 11:54 AM PARTS CLERK PLANT MAINTENANCE Respiratory Rate 18 01/28/2016 11:54 AM PARTS CLERK PLANT MAINTENANCE Oxygen Saturation 97% 01/28/2016 11:54 AM PARTS CLERK PLANT MAINTENANCE Inhaled Oxygen Concentration - - Weight 61.7 kg (136 lb) 01/28/2016 11:54 AM PARTS CLERK PLANT MAINTENANCE Height 160 cm (5' 3) 01/28/2016 11:54 AM PARTS CLERK PLANT MAINTENANCE Body Mass Index 24.09 01/28/2016 11:54 AM PARTS CLERK PLANT MAINTENANCE Plan of Treatment Health Maintenance Due Date Last Done Comments HPV VACCINES (1 - 3-dose series) 2012 DTAP/TDAP/TD VACCINES (1 - Tdap) 2016 HEPATITIS B VACCINES (1 of 3 - 19+ 3-dose series) 10/31 CERVICAL CANCER SCREENING 2018 HPV/Cotest (21-29) 2018 PAP SMEAR 2018 INFLUENZA VACCINE (#1) 2024
--- OUTSIDE RECORDS SUMMARY | 2024-10-16 16:08 | XMS_ITS | Encounter Summary ---
Author Organization [facility] Address [address] [place] [address] Care Team Providers Care Cardiothoracic Icu Rn Name Role Phone Unavailable Primary Care Provider Unavailabl e Encounter Details Date Type Department Care Team (Late st Contact Info) Description 09/06/1998 Outpatient Historical [facility] Pediatrics [place] [address] [place] [address] Moises Guerrero Social History Tobacco Use Types Packs/Day Years Used Date Smoking Tobacco: Never Assessed Comments Unknown Sex and Gender Information Value Date Recorded Sex Assigned at Not on file Legal Sex Female 2:44 AM PLUMBER SUPERVISOR Gender Identity Not on file Sexual Orientation Not on file documented as of this encounter Plan of Treatment Not on file documented as of this encounter Visit Diagnoses Not on filedocumented in this encounter
--- OUTSIDE RECORDS SUMMARY | 2024-10-16 16:08 | XMS_ITS | Encounter Summary ---
Author Organization [facility] Address [address] [place] [address] Care Team Providers Care Medical Editor Name Role Phone Unavailable Primary Care Provider Unavailabl e Encounter Details Date Type Department Care Team (Late st Contact Info) Description 03/22/2002 Outpatient Historical [facility] Pediatrics [address] [place] [address] Murtaza Mcnulty MD [address] [place] [address] Social History Tobacco Use Types Packs/Day Years Used Date Smoking Tobacco: Never Assessed Comments Unknown Sex and Gender Information Value Date Recorded Sex Assigned at Not on file Legal Sex Female 2:44 AM THERMAL CUTTER HAND Gender Identity Not on file Sexual Orientation Not on file documented as of this encounter Plan of Treatment Not on file documented as of this encounter Visit Diagnoses Not on filedocumented in this encounter
--- OUTSIDE RECORDS SUMMARY | 2024-10-16 16:08 | XMS_ITS | Encounter Summary ---
Author Organization [facility] Address [address] [place] [address] Care Team Providers Care Corset Fitter Name Role Phone Unavailable Primary Care Provider Unavailabl e Encounter Details Date Type Department Care Team (Late st Contact Info) Description 10/25/1998 Outpatient Historical [facility] Pediatrics [place] [address] [place] [address] Moises Guerrero Social History Tobacco Use Types Packs/Day Years Used Date Smoking Tobacco: Never Assessed Comments Unknown Sex and Gender Information Value Date Recorded Sex Assigned at Not on file Legal Sex Female 2:44 AM BRASS POLISHER Gender Identity Not on file Sexual Orientation Not on file documented as of this encounter Plan of Treatment Not on file documented as of this encounter Visit Diagnoses Not on filedocumented in this encounter
--- OUTSIDE RECORDS SUMMARY | 2024-10-16 16:08 | XMS_ITS | Encounter Summary ---
Author Organization [facility] Address [address] [place] [address] Care Team Providers Care Paper Testing Supervisor Name Role Phone Unavailable Primary Care Provider Unavailabl e Encounter Details Date Type Department Care Team (Late st Contact Info) Description 02/05/2000 Outpatient Historical [facility] Pediatrics [place] [address] [facility] [address] [place] [address] Kashmir Gunn MD [address] [facility] [address] [place] [address] Social History Tobacco Use Types Packs/Day Years Used Date Smoking Tobacco: Never Assessed Comments Unknown Sex and Gender Information Value Date Recorded Sex Assigned at Not on file Legal Sex Female 2:44 AM SHINGLE CATCHER Gender Identity Not on file Sexual Orientation Not on file documented as of this encounter Plan of Treatment Not on file documented as of this encounter Visit Diagnoses Not on filedocumented in this encounter
--- OUTSIDE RECORDS SUMMARY | 2024-10-16 16:08 | XMS_ITS | Encounter Summary ---
Author Organization [facility] Address [address] [place] [address] Care Team Providers Care Assistant Grocery Name Role Phone Unavailable Primary Care Provider Unavailabl e Encounter Details Date Type Department Care Team (Late st Contact Info) Description 04/09/1998 Outpatient Historical [facility] Pediatrics [place] [address] [place] [address] Moises Guerrero Social History Tobacco Use Types Packs/Day Years Used Date Smoking Tobacco: Never Assessed Comments Unknown Sex and Gender Information Value Date Recorded Sex Assigned at Not on file Legal Sex Female 2:44 AM INDUSTRIAL RELATIONS SPECIALIST Gender Identity Not on file Sexual Orientation Not on file documented as of this encounter Plan of Treatment Not on file documented as of this encounter Visit Diagnoses Not on filedocumented in this encounter
--- OUTSIDE RECORDS SUMMARY | 2024-10-16 16:08 | XMS_ITS | Encounter Summary ---
Author Organization [facility] Address [address] [place] [address] Care Team Providers Care Medical Dir Name Role Phone Unavailable Primary Care Provider Unavailabl e Encounter Details Date Type Department Care Team (Late st Contact Info) Description 06/06/2001 Outpatient Historical [facility] Pediatrics [place] [address] [facility] [address] [place] [address] Kashmir Gunn MD [address] [facility] [address] [place] [address] Social History Tobacco Use Types Packs/Day Years Used Date Smoking Tobacco: Never Assessed Comments Unknown Sex and Gender Information Value Date Recorded Sex Assigned at Not on file Legal Sex Female 2:44 AM DIGITAL STRATEGIST SENIOR MANAGER Gender Identity Not on file Sexual Orientation Not on file documented as of this encounter Plan of Treatment Not on file documented as of this encounter Visit Diagnoses Not on filedocumented in this encounter
--- OUTSIDE RECORDS SUMMARY | 2024-10-16 16:08 | XMS_ITS | Encounter Summary ---
Author Organization [facility] Address [address] [place] [address] Care Team Providers Care Accounting Associate Name Role Phone Unavailable Primary Care Provider Unavailabl e Encounter Details Date Type Department Care Team (Late st Contact Info) Description 01/05/2000 Outpatient Historical [facility] Pediatrics [place] [address] [place] [address] Kashmir Gunn MD [address] [facility] [address] [place] [address] Social History Tobacco Use Types Packs/Day Years Used Date Smoking Tobacco: Never Assessed Comments Unknown Sex and Gender Information Value Date Recorded Sex Assigned at Not on file Legal Sex Female 2:44 AM CHEMICAL MIXER Gender Identity Not on file Sexual Orientation Not on file documented as of this encounter Plan of Treatment Not on file documented as of this encounter Visit Diagnoses Not on filedocumented in this encounter
--- OUTSIDE RECORDS SUMMARY | 2024-10-16 16:08 | XMS_ITS | Encounter Summary ---
Author Organization [facility] Address [address] [place] [address] Care Team Providers Care Morning Nanny Name Role Phone Unavailable Primary Care Provider Unavailabl e Encounter Details Date Type Department Care Team (Late st Contact Info) Description 02/06/2004 Outpatient Historical [facility] Pediatrics [address] [place] [address] Murtaza Mcnulty MD [address] [place] [address] Social History Tobacco Use Types Packs/Day Years Used Date Smoking Tobacco: Never Assessed Comments Unknown Sex and Gender Information Value Date Recorded Sex Assigned at Not on file Legal Sex Female 2:44 AM AUDIO PRODUCTION ENGINEER Gender Identity Not on file Sexual Orientation Not on file documented as of this encounter Plan of Treatment Not on file documented as of this encounter Visit Diagnoses Not on filedocumented in this encounter
--- OUTSIDE RECORDS SUMMARY | 2024-10-16 16:08 | XMS_ITS | Encounter Summary ---
Author Organization [facility] Address [address] [place] [address] Care Team Providers Care Step Down Specialist Name Role Phone Unavailable Primary Care Provider Unavailabl e Encounter Details Date Type Department Care Team (Late st Contact Info) Description 07/09/2004 Outpatient Historical [facility] Pediatrics [address] [place] [address] Murtaza Mcnulty MD [address] [place] [address] Social History Tobacco Use Types Packs/Day Years Used Date Smoking Tobacco: Never Assessed Comments Unknown Sex and Gender Information Value Date Recorded Sex Assigned at Not on file Legal Sex Female 2:44 AM SYBASE DEVELOPER Gender Identity Not on file Sexual Orientation Not on file documented as of this encounter Plan of Treatment Not on file documented as of this encounter Visit Diagnoses Not on filedocumented in this encounter
--- OUTSIDE RECORDS SUMMARY | 2024-10-16 16:08 | XMS_ITS | Encounter Summary ---
Author Organization [facility] Address [address] [place] [address] Care Team Providers Care Radiological Engineer Name Role Phone Unavailable Primary Care Provider Unavailabl e Encounter Details Date Type Department Care Team (Late st Contact Info) Description 11/28/1998 Outpatient Historical [facility] Pediatrics [place] [address] [place] [address] Moises Guerrero Social History Tobacco Use Types Packs/Day Years Used Date Smoking Tobacco: Never Assessed Comments Unknown Sex and Gender Information Value Date Recorded Sex Assigned at Not on file Legal Sex Female 2:44 AM SOLE DYER Gender Identity Not on file Sexual Orientation Not on file documented as of this encounter Plan of Treatment Not on file documented as of this encounter Visit Diagnoses Not on filedocumented in this encounter
--- OUTSIDE RECORDS SUMMARY | 2024-10-16 16:08 | XMS_ITS | Encounter Summary ---
Author Organization [facility] Address [address] [place] [address] Care Team Providers Care Middle School Math Teacher Name Role Phone Unavailable Primary Care Provider Unavailabl e Encounter Details Date Type Department Care Team (Late st Contact Info) Description 08/15/1999 Outpatient Historical [facility] Pediatrics [place] [address] [place] [address] Moises Guerrero Social History Tobacco Use Types Packs/Day Years Used Date Smoking Tobacco: Never Assessed Comments Unknown Sex and Gender Information Value Date Recorded Sex Assigned at Not on file Legal Sex Female 2:44 AM SOCIAL MEDIA INTERN Gender Identity Not on file Sexual Orientation Not on file documented as of this encounter Plan of Treatment Not on file documented as of this encounter Visit Diagnoses Not on filedocumented in this encounter
--- OUTSIDE RECORDS SUMMARY | 2024-10-16 16:08 | XMS_ITS | Patient Health Record ---
Author Organization [facility] Address [address] [place], [place] [address] Support Name Relationship Address Phone NITA MAGALIE Emergency Contact Unknown ANNIKA ALVARES Guarantor Unknown [phone] Reason For Referral No Information Plan Of Treatment No Information Insurance Providers Payer Name Payer Address Payer Phone Subscriber Number Group Number Insured Name Patient Relationship to Insured Coverage Start Date Coverage End Date [facility] [address] [place] [address] [id number] ANNIKA ALVARES Self - patient is the insured
--- OUTSIDE RECORDS SUMMARY | 2024-10-16 16:08 | XMS_ITS | Encounter Summary ---
Author Organization [facility] Address [address] [place] [address] Care Team Providers Care Enrober Name Role Phone Unavailable Primary Care Provider Unavailabl e Encounter Details Date Type Department Care Team (Late st Contact Info) Description 04/29/1999 Outpatient Historical [facility] Pediatrics [place] [address] [place] [address] Moises Guerrero Social History Tobacco Use Types Packs/Day Years Used Date Smoking Tobacco: Never Assessed Comments Unknown Sex and Gender Information Value Date Recorded Sex Assigned at Not on file Legal Sex Female 2:44 AM BACK END WEB DEVELOPER Gender Identity Not on file Sexual Orientation Not on file documented as of this encounter Plan of Treatment Not on file documented as of this encounter Visit Diagnoses Not on filedocumented in this encounter
--- OUTSIDE RECORDS SUMMARY | 2024-10-16 16:08 | XMS_ITS | Encounter Summary ---
Author Organization [facility] Address [address] [place] [address] Care Team Providers Care Bench Loom Weaver Name Role Phone Unavailable Primary Care Provider Unavailabl e Encounter Details Date Type Department Care Team (Late st Contact Info) Description 01/14/1998 Outpatient Historical [facility] Pediatrics [place] [address] [place] [address] Moises Guerrero Social History Tobacco Use Types Packs/Day Years Used Date Smoking Tobacco: Never Assessed Comments Unknown Sex and Gender Information Value Date Recorded Sex Assigned at Not on file Legal Sex Female 2:44 AM FINANCIAL SERVICES ASSOCIATE Gender Identity Not on file Sexual Orientation Not on file documented as of this encounter Plan of Treatment Not on file documented as of this encounter Visit Diagnoses Not on filedocumented in this encounter
--- OUTSIDE RECORDS SUMMARY | 2024-10-16 16:08 | XMS_ITS | Encounter Summary ---
Author Organization [facility] Address [address] [place] [address] Care Team Providers Care Professor Of Sociology Name Role Phone Unavailable Primary Care Provider Unavailabl e Encounter Details Date Type Department Care Team (Late st Contact Info) Description 12/03/1998 Outpatient Historical [facility] Pediatrics [place] [address] [place] [address] Moises Guerrero Social History Tobacco Use Types Packs/Day Years Used Date Smoking Tobacco: Never Assessed Comments Unknown Sex and Gender Information Value Date Recorded Sex Assigned at Not on file Legal Sex Female 2:44 AM MICRO PALEONTOLOGIST Gender Identity Not on file Sexual Orientation Not on file documented as of this encounter Plan of Treatment Not on file documented as of this encounter Visit Diagnoses Not on filedocumented in this encounter
--- OUTSIDE RECORDS SUMMARY | 2024-10-16 16:08 | XMS_ITS | Encounter Summary ---
Author Organization [facility] Address [address] [place] [address] Care Team Providers Care Rod Puller Name Role Phone Unavailable Primary Care Provider Unavailabl e Encounter Details Date Type Department Care Team (Late st Contact Info) Description 05/28/1998 Outpatient Historical [facility] Pediatrics [place] [address] [place] [address] Moises Guerrero Social History Tobacco Use Types Packs/Day Years Used Date Smoking Tobacco: Never Assessed Comments Unknown Sex and Gender Information Value Date Recorded Sex Assigned at Not on file Legal Sex Female 2:44 AM SECTION GANG 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
--- OUTSIDE RECORDS SUMMARY | 2024-10-16 16:08 | XMS_ITS | Encounter Summary ---
Author Organization [facility] Address [address] [place] [address] Care Team Providers Care Principal Associate Name Role Phone Unavailable Primary Care Provider Unavailabl e Encounter Details Date Type Department Care Team (Late st Contact Info) Description 03/26/2000 Outpatient Historical [facility] Pediatrics [place] [address] [facility] [address] [place] [address] Kashmir Gunn MD [address] [facility] [address] [place] [address] Social History Tobacco Use Types Packs/Day Years Used Date Smoking Tobacco: Never Assessed Comments Unknown Sex and Gender Information Value Date Recorded Sex Assigned at Not on file Legal Sex Female 2:44 AM TALENT ACQUISITION RELATIONSHIP MANAGER Gender Identity Not on file Sexual Orientation Not on file documented as of this encounter Plan of Treatment Not on file documented as of this encounter Visit Diagnoses Not on filedocumented in this encounter
--- OUTSIDE RECORDS SUMMARY | 2024-10-16 16:08 | XMS_ITS | Encounter Summary ---
Author Organization [facility] Address [address] [place] [address] Care Team Providers Care Meal Room Hand Name Role Phone Unavailable Primary Care Provider Unavailabl e Encounter Details Date Type Department Care Team (Late st Contact Info) Description 11/28/1998 Outpatient Historical [facility] Pediatrics [place] [address] [place] [address] Moises Guerrero Social History Tobacco Use Types Packs/Day Years Used Date Smoking Tobacco: Never Assessed Comments Unknown Sex and Gender Information Value Date Recorded Sex Assigned at Not on file Legal Sex Female 2:44 AM PROFESSOR CRIMINAL JUSTICE Gender Identity Not on file Sexual Orientation Not on file documented as of this encounter Plan of Treatment Not on file documented as of this encounter Visit Diagnoses Not on filedocumented in this encounter
--- OUTSIDE RECORDS SUMMARY | 2024-10-16 16:08 | XMS_ITS | Encounter Summary ---
Author Organization [facility] Address [address] [place] [address] Care Team Providers Care Graphic Design Specialist Name Role Phone Unavailable Primary Care Provider Unavailabl e Encounter Details Date Type Department Care Team (Late st Contact Info) Description 11/22/1998 Emergency [facility], Authorized P NO ADDRESS ON FILE Face, neck, and scalp, except eye, abrasion or friction burn, without mention of infection (Primary Dx) Social History Tobacco Use Types Packs/Day Years Used Date Smoking Tobacco: Never Assessed Comments Unknown Sex and Gender Information Value Date Recorded Sex Assigned at Not on file Legal Sex Female 2:44 AM ACIDITY TESTER Gender Identity Not on file Sexual Orientation Not on file documented as of this encounter Plan of Treatment Not on file documented as of this encounter Visit Diagnoses Diagnosis Face, neck, and scalp, except eye, abrasion or friction burn, without mention of infection- Primary documented in this encounter
--- OUTSIDE RECORDS SUMMARY | 2024-10-16 16:08 | XMS_ITS | Encounter Summary ---
Author Organization [facility] Address [address] [place] [address] Care Team Providers Care Park Guard Name Role Phone Unavailable Primary Care Provider Unavailabl e Encounter Details Date Type Department Care Team (Late st Contact Info) Description 04/03/2000 Outpatient Historical [facility] Pediatrics [place] [address] [place] [address] Luis Conklin MD [address] [place] [address] Social History Tobacco Use Types Packs/Day Years Used Date Smoking Tobacco: Never Assessed Comments Unknown Sex and Gender Information Value Date Recorded Sex Assigned at Not on file Legal Sex Female 2:44 AM SPEECH THERAPY ASSISTANT Gender Identity Not on file Sexual Orientation Not on file documented as of this encounter Plan of Treatment Not on file documented as of this encounter Visit Diagnoses Not on filedocumented in this encounter
--- OUTSIDE RECORDS SUMMARY | 2024-10-16 16:08 | XMS_ITS | Encounter Summary ---
Author Organization [facility] Address [address] [place] [address] Care Team Providers Care Diathermy Equipment Repairer Name Role Phone Unavailable Primary Care Provider Unavailabl e Encounter Details Date Type Department Care Team (Late st Contact Info) Description 07/10/1998 Outpatient Historical [facility] Pediatrics [place] [address] [place] [address] Moises Guerrero Social History Tobacco Use Types Packs/Day Years Used Date Smoking Tobacco: Never Assessed Comments Unknown Sex and Gender Information Value Date Recorded Sex Assigned at Not on file Legal Sex Female 2:44 AM SENIOR PRODUCT DEVELOPMENT SCIENTIST Gender Identity Not on file Sexual Orientation Not on file documented as of this encounter Plan of Treatment Not on file documented as of this encounter Visit Diagnoses Not on filedocumented in this encounter
--- OUTSIDE RECORDS SUMMARY | 2024-10-16 16:08 | XMS_ITS | Encounter Summary ---
Author Organization [facility] Address [address] [place] [address] Care Team Providers Care Gusset Stitcher Name Role Phone Unavailable Primary Care Provider Unavailabl e Encounter Details Date Type Department Care Team (Late st Contact Info) Description 07/25/1999 Outpatient Historical [facility] Pediatrics [place] [address] [place] [address] Moises Guerrero Social History Tobacco Use Types Packs/Day Years Used Date Smoking Tobacco: Never Assessed Comments Unknown Sex and Gender Information Value Date Recorded Sex Assigned at Not on file Legal Sex Female 2:44 AM GARAGE ATTENDANT Gender Identity Not on file Sexual Orientation Not on file documented as of this encounter Plan of Treatment Not on file documented as of this encounter Visit Diagnoses Not on filedocumented in this encounter
--- OUTSIDE RECORDS SUMMARY | 2024-10-16 16:08 | XMS_ITS | Encounter Summary ---
Author Organization [facility] Address [address] [place] [address] Care Team Providers Care Varitype Operator Name Role Phone Unavailable Primary Care Provider Unavailabl e Encounter Details Date Type Department Care Team (Late st Contact Info) Description 05/29/1999 Outpatient Historical [facility] Pediatrics [place] [address] [place] [address] Moises Guerrero Social History Tobacco Use Types Packs/Day Years Used Date Smoking Tobacco: Never Assessed Comments Unknown Sex and Gender Information Value Date Recorded Sex Assigned at Not on file Legal Sex Female 2:44 AM POWER EQUIPMENT TECHNOLOGY INSTRUCTOR Gender Identity Not on file Sexual Orientation Not on file documented as of this encounter Plan of Treatment Not on file documented as of this encounter Visit Diagnoses Not on filedocumented in this encounter
--- OUTSIDE RECORDS SUMMARY | 2024-10-16 16:08 | XMS_ITS | Encounter Summary ---
Author Organization [facility] Address [address] [place] [address] Care Team Providers Care Digital Production Artist Name Role Phone Unavailable Primary Care Provider Unavailabl e Encounter Details Date Type Department Care Team (Late st Contact Info) Description 08/25/2001 Outpatient Historical [facility] Pediatric[facility] [place] [address] [place] [address] Kashmir Gunn MD [address] [place] [address] Social History Tobacco Use Types Packs/Day Years Used Date Smoking Tobacco: Never Assessed Comments Unknown Sex and Gender Information Value Date Recorded Sex Assigned at Not on file Legal Sex Female 2:44 AM PERSONNEL PSYCHOLOGIST Gender Identity Not on file Sexual Orientation Not on file documented as of this encounter Plan of Treatment Not on file documented as of this encounter Visit Diagnoses Not on filedocumented in this encounter
--- OUTSIDE RECORDS SUMMARY | 2024-10-16 16:08 | XMS_ITS ---
Author Organization [facility] (ClinicalSummary Clone) Address Unknown Care Team Providers Care Academic Associate Name Role Phone Unavailable Primary Care Physician Unavailab le Results * [UNITY] CARRIER SCREEN Performed by: [email or web address] Component Value Range Date Sickle Cell Disease/Beta-Thalassemia/Hemo globinopathies carrier screen NEGATIVE 08/11/2024 04:46 pm UTC Alpha-Thalassemia carrier screen NEGATIVE 08/11/2024 04:46 pm UTC Cystic Fibrosis carrier screen NEGATIVE 08/11/2024 04:46 pm UTC Spinal Muscular Atrophy carrier screen NEGATIVE 2 SMN1 copies, SNP not present 08/11/2024 04:46 pm UTC For detailed report, see PDF See PDF 08/11/2024 04:46 pm UTC 08/11/2024 04:4 6 pm UT Social History Observation Value Start Date End Date
--- OUTSIDE RECORDS SUMMARY | 2024-10-16 16:08 | XMS_ITS | Clinical Summary ---
Author Organization [facility] Address [address] [place] [address] Phone Care Team Providers Care Brazer Furnace Name Role Phone Varun Chavez MD Primary Care Provider [phone] Allergies Active Allergy Reactions Criticality Noted Date [...] Anxiety disorder Brother Christopher (27) Depression Brother Christopher (27) No Known Problems Father Óscar Anxiety [...] ( - 2023- season) 2023 Influenza Immunization (#1) 2024 Respiratory Syncytial Virus (RSV) Immunization (Adult) [...] a change Department associated with goal: [facility] Steps to achieve goal: [...] track(2021 2:25 PM CDT) Yes Sandra Rich, [facility] Insurance MEDICAID [employer] Care Teams Brazer Furnace Relationship Specialty Start Date End Date Varun Chavez MD PCP - General Internal Medicine 11/13/21
--- OUTSIDE RECORDS SUMMARY | 2024-10-16 16:08 | XMS_ITS | Encounter Summary ---
Author Organization [facility] Address [address] [place] [address] Care Team Providers Care Certified Hyperbaric Technologist Name Role Phone Unavailable Primary Care Provider Unavailabl e Encounter Details Date Type Department Care Team (Late st Contact Info) Description 08/23/1998 Outpatient Historical [facility] Pediatrics [place] [address] [place] [address] Moises Guerrero Social History Tobacco Use Types Packs/Day Years Used Date Smoking Tobacco: Never Assessed Comments Unknown Sex and Gender Information Value Date Recorded Sex Assigned at Not on file Legal Sex Female 2:44 AM TREE PLANTER Gender Identity Not on file Sexual Orientation Not on file documented as of this encounter Plan of Treatment Not on file documented as of this encounter Visit Diagnoses Not on filedocumented in this encounter
--- OUTSIDE RECORDS SUMMARY | 2024-10-16 16:08 | XMS_ITS | Encounter Summary ---
Author Organization [facility] Address [address] [place] [address] Care Team Providers Care Epoxy Fabrication Supervisor Name Role Phone Unavailable Primary Care Provider Unavailabl e Encounter Details Date Type Department Care Team (Late st Contact Info) Description 11/04/2004 Outpatient Historical [facility] Pediatrics [address] [place] [address] Murtaza Mcnulty MD [address] [place] [address] Social History Tobacco Use Types Packs/Day Years Used Date Smoking Tobacco: Never Assessed Comments Unknown Sex and Gender Information Value Date Recorded Sex Assigned at Not on file Legal Sex Female 2:44 AM ARTIFICIAL STONE APPLICATOR Gender Identity Not on file Sexual Orientation Not on file documented as of this encounter Plan of Treatment Not on file documented as of this encounter Visit Diagnoses Not on filedocumented in this encounter
--- OUTSIDE RECORDS SUMMARY | 2024-10-16 16:09 | XMS_ITS | Encounter Summary ---
Author Organization [facility] Address [address] [place] [address] Care Team Providers Care Hair Weaver Name Role Phone Unavailable Primary Care Provider Unavailabl e Encounter Details Date Type Department Care Team (Late st Contact Info) Description 01/09/2004 Outpatient Historical [facility] Pediatrics [address] [place] [address] Murtaza Mcnulty MD [address] [place] [address] Social History Tobacco Use Types Packs/Day Years Used Date Smoking Tobacco: Never Assessed Comments Unknown Sex and Gender Information Value Date Recorded Sex Assigned at Not on file Legal Sex Female 2:44 AM ASSISTANT BRANCH OPERATIONS MANAGER Gender Identity Not on file Sexual Orientation Not on file documented as of this encounter Plan of Treatment Not on file documented as of this encounter Visit Diagnoses Not on filedocumented in this encounter
--- OUTSIDE RECORDS SUMMARY | 2024-10-16 16:09 | XMS_ITS | Encounter Summary ---
Author Organization [facility] Address [address] [place] [address] Care Team Providers Care Logistics Specialist Name Role Phone Unavailable Primary Care Provider Unavailabl e Encounter Details Date Type Department Care Team (Late st Contact Info) Description 02/12/2004 Outpatient Historical [facility] Pediatrics [address] [place] [address] Murtaza Mcnulty MD [address] [place] [address] Social History Tobacco Use Types Packs/Day Years Used Date Smoking Tobacco: Never Assessed Comments Unknown Sex and Gender Information Value Date Recorded Sex Assigned at Not on file Legal Sex Female 2:44 AM OPHTHALMIC TECHNICIAN Gender Identity Not on file Sexual Orientation Not on file documented as of this encounter Plan of Treatment Not on file documented as of this encounter Visit Diagnoses Not on filedocumented in this encounter
--- OUTSIDE RECORDS SUMMARY | 2024-10-16 16:09 | XMS_ITS | Encounter Summary ---
Author Organization [facility] Address [address] [place] [address] Care Team Providers Care Help Desk Intern Name Role Phone Unavailable Primary Care Provider Unavailabl e Encounter Details Date Type Department Care Team (Late st Contact Info) Description 05/06/2004 Outpatient Historical [facility] Pediatrics [address] [place] [address] Murtaza Mcnulty MD [address] [place] [address] Social History Tobacco Use Types Packs/Day Years Used Date Smoking Tobacco: Never Assessed Comments Unknown Sex and Gender Information Value Date Recorded Sex Assigned at Not on file Legal Sex Female 2:44 AM PATIENT SCHEDULER Gender Identity Not on file Sexual Orientation Not on file documented as of this encounter Plan of Treatment Not on file documented as of this encounter Visit Diagnoses Not on filedocumented in this encounter
== END 2024-10-16 15:56 | disposition home or self-care (01) ==
PROVIDERS: PCP Emergency Medicine; Visit Provider Obstetrics & Gynecology Gynecology
DX: O44.42 Low lying placenta NOS or without hemorrhage, second trimester (principal); Z3A.00 Weeks of gestation of pregnancy not specified
CPT/HCPCS: 76816

== ENCOUNTER 2024-11-07 16:25 | Observation (INO) | payer OTHER, SELFPAY ==
[2024-11-07] VITALS (24 sets, daily range): BP systolic 124; BP diastolic 70; PULSE 25–234; O2SAT 76–100; BMI 32.7
--- NOTE | ~2024-11-07 | US_ITS ---
EXAMINATION: US OB BPP wo non-stress DATE: 11/08/2024 22:03 CDT INDICATION: Placenta check. TECHNIQUE: Real-time transabdominal obstetric ultrasound. FINDINGS: Comparison ultrasound dated 10/16/2024 There is a single living fetus in breech presentation. The placenta is anterior without placenta previa. Placenta is 4.2 cm to the cervix. The placenta is grossly normal, without suggestion of placenta abruption. However, ultrasound is not diagnostic of abruption since acute hemorrhage can be isoechoic to be placenta. Recommend clinical correlation. cardiac activity and movement is noted with a heart rate of 148 beats per minute. Biophysical profile: breathin of 2 movement: 2 of 2 tone: 2 of 2 Amniotic flud pocket: 2 of 2 Total score: 8 of 8 IMPRESSION: 1. Single living intrauterine in breech presentation. 2: Total biophysical profile score of 8/8. Reviewed, dictated and finalized at location O.
--- NOTE | 2024-11-07 14:56 | ECG_ITS ---
Test Date: 2024-11-07 15:12:11 Measurements Intervals [place] Rate: 120 P: 26 AK: 166 QRS: 51 QRSD: 80 T: 37 QT: 336 QTc: 475 Interpretive Statements SINUS TACHYCARDIA ABNORMAL RHYTHM ECG No previous ECG available for comparison Electronically Signed On 11-08-2024 15:53:28 CDT by Mervin Valencia M.D.
[2024-11-07 15:32] LABS: Cannabinoid Screen Urine Negative (Negative)
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
[2024-11-07 16:40] LABS: Hematocrit 35.9 % (37.0-47.0); Hemoglobin 12.1 g/dL (12.0-15.0); Immature Granulocyte Percent A 2.9 % (0-0.5); Lymphocytes Absolute Auto 1.10 K/mm3 (0.9-3.2); Mean Corpuscular HGB Conc 33.7 g/dl (32-36); Mean Corpuscular Hemoglobin 29.9 pg (26-34); Mean Corpuscular Volume 88.6 fl (80-100); Nucleated Red Blood Cells Absolute Auto 0.000 K/mm3 (0.0-0.012); Nucleated Red Blood Cells Perc 0.0 % (0.0-0.2); Platelet Count Result 239 k/mm3 (150-375); Red Blood Count 4.05 M/mm3 (4.2-5.4); White Blood Count 15.3 K/mm3 (4.5-10.0)
[2024-11-07] MEDS: LACTATED RINGERS 1,000 ML 999 ML IV CONT (16:54)
--- NOTE | 2024-11-07 17:10 | OBADM ---
This patient, Charis Peres, admitted to the OB room Labor/Delivery/Recovery 118 for observation. Patient/family oriented to hospital policies and general routines including ID bracelet, bed and alarms, visiting hours, pain management, procedures, bathroom and other care routines, personal items, smoking policy, room service/diet, and visiting hours. Patient/Family are encouraged to report perceived risks to care and to ask questions if they do not understand what they are told or what they should do.
[2024-11-07] MEDS: ONDANSETRON INJ 4 MG/2 ML VIAL IV PUSH (17:18)
--- OUTSIDE RECORDS SUMMARY | 2024-11-07 17:18 | XMS_ITS | Encounter Summary ---
Author Organization [facility] Address [address] [place] [address] Care Team Providers Care Director Of Special Education Name Role Phone Unavailable Primary Care Provider Unavailabl e Encounter Details Date Type Department Care Team (Late st Contact Info) Description 04/03/2000 Outpatient Historical [facility] Pediatrics [place] [address] [place] [address] Luis Conklin MD [address] [place] [address] Social History Tobacco Use Types Packs/Day Years Used Date Smoking Tobacco: Never Assessed Comments Unknown Sex and Gender Information Value Date Recorded Sex Assigned at Not on file Legal Sex Female 2:44 AM ROLL SCALE MAN Gender Identity Not on file Sexual Orientation Not on file documented as of this encounter Plan of Treatment Not on file documented as of this encounter Visit Diagnoses Not on filedocumented in this encounter
--- OUTSIDE RECORDS SUMMARY | 2024-11-07 17:18 | XMS_ITS | Encounter Summary ---
Author Organization [facility] Address [address] [place] [address] Care Team Providers Care Protein Chemist Name Role Phone Unavailable Primary Care Provider Unavailabl e Encounter Details Date Type Department Care Team (Late st Contact Info) Description 08/11/1999 Outpatient Historical [facility] Pediatrics [place] [address] [place] [address] Moises Guerrero Social History Tobacco Use Types Packs/Day Years Used Date Smoking Tobacco: Never Assessed Comments Unknown Sex and Gender Information Value Date Recorded Sex Assigned at Not on file Legal Sex Female 2:44 AM ELECTRONICS SYSTEM 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
--- OUTSIDE RECORDS SUMMARY | 2024-11-07 17:18 | XMS_ITS | Encounter Summary ---
Author Organization [facility] Address [address] [place] [address] Care Team Providers Care Sales Development Director Name Role Phone Unavailable Primary Care Provider Unavailabl e Encounter Details Date Type Department Care Team (Late st Contact Info) Description 05/06/2004 Outpatient Historical [facility] Pediatrics [address] [place] [address] Murtaza Mcnulty MD [address] [place] [address] Social History Tobacco Use Types Packs/Day Years Used Date Smoking Tobacco: Never Assessed Comments Unknown Sex and Gender Information Value Date Recorded Sex Assigned at Not on file Legal Sex Female 2:44 AM MEDICAL TERRITORY MANAGER Gender Identity Not on file Sexual Orientation Not on file documented as of this encounter Plan of Treatment Not on file documented as of this encounter Visit Diagnoses Not on filedocumented in this encounter
--- OUTSIDE RECORDS SUMMARY | 2024-11-07 17:18 | XMS_ITS | Encounter Summary ---
Author Organization [facility] Address [address] [place] [address] Care Team Providers Care Airplane Pilot Crop Dusting Name Role Phone Unavailable Primary Care Provider Unavailabl e Encounter Details Date Type Department Care Team (Late st Contact Info) Description 06/04/2003 Outpatient Historical [facility] Pediatrics [address] [place] [address] Murtaza Mcnulty MD [address] [place] [address] Social History Tobacco Use Types Packs/Day Years Used Date Smoking Tobacco: Never Assessed Comments Unknown Sex and Gender Information Value Date Recorded Sex Assigned at Not on file Legal Sex Female 2:44 AM ONCOLOGY PATIENT NAVIGATOR Gender Identity Not on file Sexual Orientation Not on file documented as of this encounter Plan of Treatment Not on file documented as of this encounter Visit Diagnoses Not on filedocumented in this encounter
--- OUTSIDE RECORDS SUMMARY | 2024-11-07 17:18 | XMS_ITS | Encounter Summary ---
Author Organization [facility] Address [address] [place] [address] Care Team Providers Care Cancer Registry Manager Name Role Phone Unavailable Primary Care Provider Unavailabl e Encounter Details Date Type Department Care Team (Late st Contact Info) Description 08/23/1998 Outpatient Historical [facility] Pediatrics [place] [address] [place] [address] Moises Guerrero Social History Tobacco Use Types Packs/Day Years Used Date Smoking Tobacco: Never Assessed Comments Unknown Sex and Gender Information Value Date Recorded Sex Assigned at Not on file Legal Sex Female 2:44 AM SELF PROPELLED HOT MIX ROLLER 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
--- OUTSIDE RECORDS SUMMARY | 2024-11-07 17:18 | XMS_ITS | Encounter Summary ---
Author Organization [facility] Address [address] [place] [address] Care Team Providers Care Biology Specialist Name Role Phone Unavailable Primary Care Provider Unavailabl e Encounter Details Date Type Department Care Team (Late st Contact Info) Description 05/28/1998 Outpatient Historical [facility] Pediatrics [place] [address] [place] [address] Moises Guerrero Social History Tobacco Use Types Packs/Day Years Used Date Smoking Tobacco: Never Assessed Comments Unknown Sex and Gender Information Value Date Recorded Sex Assigned at Not on file Legal Sex Female 2:44 AM METAL ROOM DENTAL TECHNICIAN Gender Identity Not on file Sexual Orientation Not on file documented as of this encounter Plan of Treatment Not on file documented as of this encounter Visit Diagnoses Not on filedocumented in this encounter
--- OUTSIDE RECORDS SUMMARY | 2024-11-07 17:18 | XMS_ITS | Encounter Summary ---
Author Organization [facility] Address [address] [place] [address] Care Team Providers Care Sex Offender Treatment Professional Name Role Phone Unavailable Primary Care Provider Unavailabl e Encounter Details Date Type Department Care Team (Late st Contact Info) Description 06/12/1999 Outpatient Historical [facility] Pediatrics [place] [address] [place] [address] Moises Guerrero Social History Tobacco Use Types Packs/Day Years Used Date Smoking Tobacco: Never Assessed Comments Unknown Sex and Gender Information Value Date Recorded Sex Assigned at Not on file Legal Sex Female 2:44 AM AIRPORT TOWER CONTROLLER Gender Identity Not on file Sexual Orientation Not on file documented as of this encounter Plan of Treatment Not on file documented as of this encounter Visit Diagnoses Not on filedocumented in this encounter
--- OUTSIDE RECORDS SUMMARY | 2024-11-07 17:18 | XMS_ITS | Encounter Summary ---
Author Organization [facility] Address [address] [place] [address] Care Team Providers Care Consulting Sales Manager Name Role Phone Unavailable Primary Care Provider Unavailabl e Encounter Details Date Type Department Care Team (Late st Contact Info) Description 04/09/[address] [facility] Pediatrics [place] [address] [place] [address] Moises Guerrero Social History Tobacco Use Types Packs/Day Years Used Date Smoking Tobacco: Never Assessed Comments Unknown Sex and Gender Information Value Date Recorded Sex Assigned at Not on file Legal Sex Female 2:44 AM BUDGET CLERK Gender Identity Not on file Sexual Orientation Not on file documented as of this encounter Plan of Treatment Not on file documented as of this encounter Visit Diagnoses Not on filedocumented in this encounter
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
--- OUTSIDE RECORDS SUMMARY | 2024-11-07 17:18 | XMS_ITS ---
Author Organization [facility] (ClinicalSummary Clone) Address Unknown Care Team Providers Care Agile Developer Name Role Phone Unavailable Primary Care Physician Unavailab le Results * [UNITY] ANEUPLOIDY NIPT Performed by: [employer] Component Value Range Date Fraction 8.2% 07/24/2024 [...]
--- OUTSIDE RECORDS SUMMARY | 2024-11-07 17:18 | XMS_ITS | Encounter Summary ---
Author Organization [facility] Address [address] [place] [address] Care Team Providers Care Account Executive Healthcare Name Role Phone Unavailable Primary Care Provider Unavailabl e Encounter Details Date Type Department Care Team (Late st Contact Info) Description 09/06/1998 Outpatient Historical [facility] [place] [address] [place] [address] Moises Guerrero Social History Tobacco Use Types Packs/Day Years Used Date Smoking Tobacco: Never Assessed Comments Unknown Sex and Gender Information Value Date Recorded Sex Assigned at Not on file Legal Sex Female 2:44 AM CALL OUT 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
--- OUTSIDE RECORDS SUMMARY | 2024-11-07 17:18 | XMS_ITS | Encounter Summary ---
Author Organization [facility] Address [address] [place] [address] Care Team Providers Care Wheel Of Fortune Dealer Name Role Phone Unavailable Primary Care Provider Unavailabl e Encounter Details Date Type Department Care Team (Late st Contact Info) Description 11/04/2004 Outpatient Historical [facility] [address] [place] [address] Murtaza Mcnulty MD [address] [place] [address] Social History Tobacco Use Types Packs/Day Years Used Date Smoking Tobacco: Never Assessed Comments Unknown Sex and Gender Information Value Date Recorded Sex Assigned at Not on file Legal Sex Female 2:44 AM EXPEDITION SUPERVISOR Gender Identity Not on file Sexual Orientation Not on file documented as of this encounter Plan of Treatment Not on file documented as of this encounter Visit Diagnoses Not on filedocumented in this encounter
--- OUTSIDE RECORDS SUMMARY | 2024-11-07 17:18 | XMS_ITS | Encounter Summary ---
Author Organization [facility] Address [address] [place] [address] Care Team Providers Care Body Engineer Name Role Phone Unavailable Primary Care Provider Unavailabl e Encounter Details Date Type Department Care Team (Late st Contact Info) Description 01/14/1998 Outpatient Historical [facility] [place] [address] [place] [address] Moises Guerrero Social History Tobacco Use Types Packs/Day Years Used Date Smoking Tobacco: Never Assessed Comments Unknown Sex and Gender Information Value Date Recorded Sex Assigned at Not on file Legal Sex Female 2:44 AM EVENT DESIGNER Gender Identity Not on file Sexual Orientation Not on file documented as of this encounter Plan of Treatment Not on file documented as of this encounter Visit Diagnoses Not on filedocumented in this encounter
--- OUTSIDE RECORDS SUMMARY | 2024-11-07 17:18 | XMS_ITS | Encounter Summary ---
Author Organization [facility] Address [address] [place] [address] Care Team Providers Care Child Care Lead Teacher Name Role Phone Unavailable Primary Care Provider Unavailabl e Encounter Details Date Type Department Care Team (Late st Contact Info) Description 12/17/1998 Outpatient Historical [facility] Pediatrics [place] [address] [place] [address] Moises Guerrero Social History Tobacco Use Types Packs/Day Years Used Date Smoking Tobacco: Never Assessed Comments Unknown Sex and Gender Information Value Date Recorded Sex Assigned at Not on file Legal Sex Female 2:44 AM VENTILATING EQUIPMENT INSTALLER Gender Identity Not on file Sexual Orientation Not on file documented as of this encounter Plan of Treatment Not on file documented as of this encounter Visit Diagnoses Not on filedocumented in this encounter
--- OUTSIDE RECORDS SUMMARY | 2024-11-07 17:18 | XMS_ITS | Encounter Summary ---
Author Organization [facility] Address [address] [place] [address] Care Team Providers Care Esthetician/Skin Therapist Name Role Phone Unavailable Primary Care Provider Unavailabl e Encounter Details Date Type Department Care Team (Late st Contact Info) Description 02/06/2004 Outpatient Historical [facility] Pediatric[facility] [address] [place] [address] Murtaza Mcnulty MD [address] [place] [address] Social History Tobacco Use Types Packs/Day Years Used Date Smoking Tobacco: Never Assessed Comments Unknown Sex and Gender Information Value Date Recorded Sex Assigned at Not on file Legal Sex Female 2:44 AM RESEARCH MANAGEMENT ASSOCIATE Gender Identity Not on file Sexual Orientation Not on file documented as of this encounter Plan of Treatment Not on file documented as of this encounter Visit Diagnoses Not on filedocumented in this encounter
--- OUTSIDE RECORDS SUMMARY | 2024-11-07 17:18 | XMS_ITS | Encounter Summary ---
Author Organization [facility] Address [address] [place] [address] Care Team Providers Care Drywall Stripper Helper Name Role Phone Unavailable Primary Care Provider Unavailabl e Encounter Details Date Type Department Care Team (Late st Contact Info) Description 05/31/1998 Outpatient Historical [facility] Pediatrics [address] [place] [address] Moises Guerrero Social History Tobacco Use Types Packs/Day Years Used Date Smoking Tobacco: Never Assessed Comments Unknown Sex and Gender Information Value Date Recorded Sex Assigned at Not on file Legal Sex Female 2:44 AM BMW SERVICE TECHNICIAN Gender Identity Not on file Sexual Orientation Not on file documented as of this encounter Plan of Treatment Not on file documented as of this encounter Procedures Procedure Name Priority Date/Time Associated Diagnosis Comments CHG HEPATITIS B VACCINE PED ADOL IM 3 DOSE VFC 05/31/1998 12:00 AM BMW SERVICE TECHNICIAN CHG DTAP VACCINE <7 YO IM VFC 05/31/1998 12:00 AM BMW SERVICE TECHNICIAN documented in this encounter Visit Diagnoses Not on filedocumented in this encounter
--- OUTSIDE RECORDS SUMMARY | 2024-11-07 17:18 | XMS_ITS | Encounter Summary ---
Author Organization [facility] Address [address] [place] [address] Care Team Providers Care Metrologist Name Role Phone Unavailable Primary Care Provider Unavailabl e Encounter Details Date Type Department Care Team (Late st Contact Info) Description 05/29/[address] [facility] Pediatrics [place] [address] [place] [address] Moises Guerrero Social History Tobacco Use Types Packs/Day Years Used Date Smoking Tobacco: Never Assessed Comments Unknown Sex and Gender Information Value Date Recorded Sex Assigned at Not on file Legal Sex Female 2:44 AM ANIMAL ATTENDANT Gender Identity Not on file Sexual Orientation Not on file documented as of this encounter Plan of Treatment Not on file documented as of this encounter Visit Diagnoses Not on filedocumented in this encounter
--- OUTSIDE RECORDS SUMMARY | 2024-11-07 17:18 | XMS_ITS | Clinical Summary ---
Author Organization [facility] Address [address] [place] [address] Phone Care Team Providers Care Senior Staff Consultant Name Role Phone Unavailable Primary Care [...] on file Legal Sex Female 2:44 AM HEEL SPRAYER Gender Identity Not on file Sexual Orientation Not on file Occupation Industry Job Start Date Job End Date Not on file Not on file Not on file Not on file Last Filed Vital Signs Vital Sign Reading Time Taken Comments Blood Pressure 110/80 01/28/2016 11:54 AM HEEL SPRAYER Pulse 101 01/28/2016 11:54 AM HEEL SPRAYER Temperature 37.1 C (98.7 F) 01/28/2016 11:54 AM HEEL SPRAYER Respiratory Rate 18 01/28/2016 11:54 AM HEEL SPRAYER Oxygen Saturation 97% 01/28/2016 11:54 AM HEEL SPRAYER Inhaled Oxygen Concentration - - Weight 61.7 kg (136 lb) 01/28/2016 11:54 AM HEEL SPRAYER Height 160 cm (5' 3) 01/28/2016 11:54 AM HEEL SPRAYER Body Mass Index 24.09 01/28/2016 11:54 AM HEEL SPRAYER Plan of Treatment Health Maintenance Due Date Last Done Comments HPV VACCINES (1 - 3-dose series) 2012 DTAP/TDAP/TD VACCINES (1 - Tdap) 2016 HEPATITIS B VACCINES (1 of 3 - 19+ 3-dose series) 10/31 CERVICAL CANCER SCREENING 2018 HPV/Cotest (21-29) 2018 PAP SMEAR 2018 INFLUENZA VACCINE (#1) 2024
--- OUTSIDE RECORDS SUMMARY | 2024-11-07 17:18 | XMS_ITS | Encounter Summary ---
Author Organization [facility] Address [address] [place] [address] Care Team Providers Care Merchandising Team Lead Name Role Phone Unavailable Primary Care Provider Unavailabl e Encounter Details Date Type Department Care Team (Late st Contact Info) Description 02/05/2000 Outpatient Historical [facility] [place] [address] [facility] [address] [place] [address] Kashmir Gunn MD [address] [facility] [address] [place] [address] Social History Tobacco Use Types Packs/Day Years Used Date Smoking Tobacco: Never Assessed Comments Unknown Sex and Gender Information Value Date Recorded Sex Assigned at Not on file Legal Sex Female 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
--- OUTSIDE RECORDS SUMMARY | 2024-11-07 17:18 | XMS_ITS | Encounter Summary ---
Author Organization [facility] Address [address] [place] [address] Care Team Providers Care Associate Professor Of Physics Name Role Phone Unavailable Primary Care Provider Unavailabl e Encounter Details Date Type Department Care Team (Late st Contact Info) Description 07/09/2004 Outpatient Historical [facility] Pediatrics [address] [place] [address] Murtaza Mcnulty MD [address] [place] [address] Social History Tobacco Use Types Packs/Day Years Used Date Smoking Tobacco: Never Assessed Comments Unknown Sex and Gender Information Value Date Recorded Sex Assigned at Not on file Legal Sex Female 2:44 AM COOK JELLY Gender Identity Not on file Sexual Orientation Not on file documented as of this encounter Plan of Treatment Not on file documented as of this encounter Visit Diagnoses Not on filedocumented in this encounter
--- OUTSIDE RECORDS SUMMARY | 2024-11-07 17:18 | XMS_ITS | Encounter Summary ---
Author Organization [facility] Address [address] [place] [address] Care Team Providers Care Quality Coordinator Name Role Phone Unavailable Primary Care Provider Unavailabl e Encounter Details Date Type Department Care Team (Late st Contact Info) Description 11/28/1998 Outpatient Historical [facility] Pediatrics [place] [address] [place] [address] Moises Guerrero Social History Tobacco Use Types Packs/Day Years Used Date Smoking Tobacco: Never Assessed Comments Unknown Sex and Gender Information Value Date Recorded Sex Assigned at Not on file Legal Sex Female 2:44 AM COTTAGE PARENT Gender Identity Not on file Sexual Orientation Not on file documented as of this encounter Plan of Treatment Not on file documented as of this encounter Visit Diagnoses Not on filedocumented in this encounter
--- OUTSIDE RECORDS SUMMARY | 2024-11-07 17:18 | XMS_ITS | Encounter Summary ---
Author Organization [facility] Address [address] [place] [address] Care Team Providers Care Senior Attorney Name Role Phone Unavailable Primary Care Provider Unavailabl e Encounter Details Date Type Department Care Team (Late st Contact Info) Description 10/25/[address] [facility] Pediatrics [place] [address] [place] [address] Moises Guerrero Social History Tobacco Use Types Packs/Day Years Used Date Smoking Tobacco: Never Assessed Comments Unknown Sex and Gender Information Value Date Recorded Sex Assigned at Not on file Legal Sex Female 2:44 AM SURGICAL APPLIANCE FITTER Gender Identity Not on file Sexual Orientation Not on file documented as of this encounter Plan of Treatment Not on file documented as of this encounter Visit Diagnoses Not on filedocumented in this encounter
--- OUTSIDE RECORDS SUMMARY | 2024-11-07 17:18 | XMS_ITS | Encounter Summary ---
Author Organization [facility] Address [address] [place] [address] Care Team Providers Care Alignment Specialist Name Role Phone Unavailable Primary Care Provider Unavailabl e Encounter Details Date Type Department Care Team (Late st Contact Info) Description 11/15/2003 Outpatient Historical [facility] [place] [address] [facility] [address] [place] [address] Kashmir Gunn MD [address] [facility] [address] [place] [address] Social History Tobacco Use Types Packs/Day Years Used Date Smoking Tobacco: Never Assessed Comments Unknown Sex and Gender Information Value Date Recorded Sex Assigned at Not on file Legal Sex Female 2:44 AM TAPING SUPERVISOR Gender Identity Not on file Sexual Orientation Not on file documented as of this encounter Plan of Treatment Not on file documented as of this encounter Procedures Procedure Name Priority Date/Time Associated Diagnosis Comments CHG POLIOVIRUS IPV [facility] 4 12:00 AM CDT CHG MMR VACCINE SQ [facility] 4 12:00 AM CDT CHG DTAP VACCINE <7 YO IM [facility] 11/15/2003 12:00 AM CDT documented in this encounter Visit Diagnoses Not on filedocumented in this encounter
--- OUTSIDE RECORDS SUMMARY | 2024-11-07 17:18 | XMS_ITS | Encounter Summary ---
Author Organization [facility] Address [address] [place] [address] Care Team Providers Care Trade Mark Examiner Name Role Phone Unavailable Primary Care Provider Unavailabl e Encounter Details Date Type Department Care Team (Late st Contact Info) Description 01/07/1998 Outpatient Historical [facility] Pediatrics [place] [address] [place] [address] Moises Guerrero Social History Tobacco Use Types Packs/Day Years Used Date Smoking Tobacco: Never Assessed Comments Unknown Sex and Gender Information Value Date Recorded Sex Assigned at Not on file Legal Sex Female 2:44 AM SENIOR INTERNAL AUDITOR Gender Identity Not on file Sexual Orientation Not on file documented as of this encounter Plan of Treatment Not on file documented as of this encounter Visit Diagnoses Not on filedocumented in this encounter
--- OUTSIDE RECORDS SUMMARY | 2024-11-07 17:18 | XMS_ITS | Encounter Summary ---
Author Organization [facility] Address [address] [place] [address] Care Team Providers Care Director Dermatology Name Role Phone Unavailable Primary Care Provider Unavailabl e Encounter Details Date Type Department Care Team (Late st Contact Info) Description 04/29/1999 Outpatient Historical [facility] Pediatrics [place] [address] [place] [address] Moises Guerrero Social History Tobacco Use Types Packs/Day Years Used Date Smoking Tobacco: Never Assessed Comments Unknown Sex and Gender Information Value Date Recorded Sex Assigned at Not on file Legal Sex Female 2:44 AM WILDLIFE CONTROL 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
--- OUTSIDE RECORDS SUMMARY | 2024-11-07 17:18 | XMS_ITS | Encounter Summary ---
Author Organization [facility] Address [address] [place] [address] Care Team Providers Care Lawn Service Supervisor Name Role Phone Unavailable Primary Care Provider Unavailabl e Encounter Details Date Type Department Care Team (Late st Contact Info) Description 08/25/2001 Outpatient Historical [facility]s [place] [address] [facility] [address] [place] [address] Kashmir Gunn MD [address] [facility] [address] [place] [address] Social History Tobacco Use Types Packs/Day Years Used Date Smoking Tobacco: Never Assessed Comments Unknown Sex and Gender Information Value Date Recorded Sex Assigned at Not on file Legal Sex Female 2:44 AM CPHT Gender Identity Not on file Sexual Orientation Not on file documented as of this encounter Plan of Treatment Not on file documented as of this encounter Visit Diagnoses Not on filedocumented in this encounter
--- OUTSIDE RECORDS SUMMARY | 2024-11-07 17:18 | XMS_ITS | Encounter Summary ---
Author Organization [facility] Address [address] [place] [address] Care Team Providers Care Video Game Script Writer Name Role Phone Unavailable Primary Care Provider Unavailabl e Encounter Details Date Type Department Care Team (Late st Contact Info) Description 01/06/1999 Outpatient Historical [facility] Pediatrics [place] [address] [place] [address] Moises Guerrero Social History Tobacco Use Types Packs/Day Years Used Date Smoking Tobacco: Never Assessed Comments Unknown Sex and Gender Information Value Date Recorded Sex Assigned at Not on file Legal Sex Female 2:44 AM SOLAR SALES 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
--- OUTSIDE RECORDS SUMMARY | 2024-11-07 17:18 | XMS_ITS | Encounter Summary ---
Author Organization [facility] Address [address] [place] [address] Care Team Providers Care Student Finance Advisor Name Role Phone Unavailable Primary Care Provider Unavailabl e Encounter Details Date Type Department Care Team (Late st Contact Info) Description 07/25/[address] [facility] Pediatrics [place] [address] [place] [address] Moises Guerrero Social History Tobacco Use Types Packs/Day Years Used Date Smoking Tobacco: Never Assessed Comments Unknown Sex and Gender Information Value Date Recorded Sex Assigned at Not on file Legal Sex Female 2:44 AM J2EE JAVA DEVELOPER Gender Identity Not on file Sexual Orientation Not on file documented as of this encounter Plan of Treatment Not on file documented as of this encounter Visit Diagnoses Not on filedocumented in this encounter
--- OUTSIDE RECORDS SUMMARY | 2024-11-07 17:18 | XMS_ITS | Encounter Summary ---
Author Organization [facility] Address [address] [place] [address] Care Team Providers Care Lumber Racker Name Role Phone Unavailable Primary Care Provider Unavailabl e Encounter Details Date Type Department Care Team (Late st Contact Info) Description 07/10/1998 Outpatient Historical [facility] Pediatrics [place] [address] [place] [address] Moises Guerrero Social History Tobacco Use Types Packs/Day Years Used Date Smoking Tobacco: Never Assessed Comments Unknown Sex and Gender Information Value Date Recorded Sex Assigned at Not on file Legal Sex Female 2:44 AM SORT LINE Gender Identity Not on file Sexual Orientation Not on file documented as of this encounter Plan of Treatment Not on file documented as of this encounter Visit Diagnoses Not on filedocumented in this encounter
--- OUTSIDE RECORDS SUMMARY | 2024-11-07 17:18 | XMS_ITS | Encounter Summary ---
Author Organization [facility] Address [address] [place] [address] Care Team Providers Care Automotive Electrician Helper Name Role Phone Unavailable Primary Care Provider Unavailabl e Encounter Details Date Type Department Care Team (Late st Contact Info) Description 02/12/2004 Outpatient Historical [facility] Pediatrics [address] [place] [address] Murtaza Mcnulty MD [address] [place] [address] Social History Tobacco Use Types Packs/Day Years Used Date Smoking Tobacco: Never Assessed Comments Unknown Sex and Gender Information Value Date Recorded Sex Assigned at Not on file Legal Sex Female 2:44 AM LINE PATROLLER Gender Identity Not on file Sexual Orientation Not on file documented as of this encounter Plan of Treatment Not on file documented as of this encounter Visit Diagnoses Not on filedocumented in this encounter
--- OUTSIDE RECORDS SUMMARY | 2024-11-07 17:18 | XMS_ITS | Encounter Summary ---
Author Organization [facility] Address [address] [place] [address] Care Team Providers Care Sole Ruffer Name Role Phone Unavailable Primary Care Provider Unavailabl e Encounter Details Date Type Department Care Team (Late st Contact Info) Description 08/15/1999 Outpatient Historical [facility] Pediatrics [place] [address] [place] [address] Moises Guerrero Social History Tobacco Use Types Packs/Day Years Used Date Smoking Tobacco: Never Assessed Comments Unknown Sex and Gender Information Value Date Recorded Sex Assigned at Not on file Legal Sex Female 2:44 AM INTERVENTIONAL PHYSIATRIST Gender Identity Not on file Sexual Orientation Not on file documented as of this encounter Plan of Treatment Not on file documented as of this encounter Visit Diagnoses Not on filedocumented in this encounter
--- OUTSIDE RECORDS SUMMARY | 2024-11-07 17:18 | XMS_ITS ---
Author Organization [facility] Address Unknown Care Team Providers Care Music Video Director Name Role Phone Unavailable Primary Care Physician Unavailab le Results * [UNITY] CARRIER SCREEN Performed by: [place] Component Value Range Date Sickle Cell Disease/Beta-Thalassemia/Hemo [...]
--- OUTSIDE RECORDS SUMMARY | 2024-11-07 17:18 | XMS_ITS | Encounter Summary ---
Author Organization [facility] Address [address] [place] [address] Care Team Providers Care Privacy Director Name Role Phone Unavailable Primary Care Provider Unavailabl e Encounter Details Date Type Department Care Team (Late st Contact Info) Description 06/06/2001 Outpatient Historical [facility] Pediatrics [place] [address] [facility] [address] [place] [address] Kashmir Gunn MD [address] [facility] [address] [place] [address] Social History Tobacco Use Types Packs/Day Years Used Date Smoking Tobacco: Never Assessed Comments Unknown Sex and Gender Information Value Date Recorded Sex Assigned at Not on file Legal Sex Female 2:44 AM ADMISSION NURSE COORDINATOR Gender Identity Not on file Sexual Orientation Not on file documented as of this encounter Plan of Treatment Not on file documented as of this encounter Visit Diagnoses Not on filedocumented in this encounter
--- OUTSIDE RECORDS SUMMARY | 2024-11-07 17:18 | XMS_ITS | Encounter Summary ---
Author Organization [facility] Address [address] [place] [address] Care Team Providers Care Finish Specialist Name Role Phone Unavailable Primary Care Provider Unavailabl e Encounter Details Date Type Department Care Team (Late st Contact Info) Description 01/09/2004 Outpatient Historical [facility] Pediatrics [address] [place] [address] Murtaza Mcnulty MD [address] [place] [address] Social History Tobacco Use Types Packs/Day Years Used Date Smoking Tobacco: Never Assessed Comments Unknown Sex and Gender Information Value Date Recorded Sex Assigned at Not on file Legal Sex Female 2:44 AM HEAD BUYER TOBACCO Gender Identity Not on file Sexual Orientation Not on file documented as of this encounter Plan of Treatment Not on file documented as of this encounter Visit Diagnoses Not on filedocumented in this encounter
--- OUTSIDE RECORDS SUMMARY | 2024-11-07 17:18 | XMS_ITS | Encounter Summary ---
Author Organization [facility] Address [address] [place] [address] Care Team Providers Care Hook Puller Name Role Phone Unavailable Primary Care Provider Unavailabl e Encounter Details Date Type Department Care Team (Late st Contact Info) Description 11/28/1998 Outpatient Historical [facility] Pediatrics [place] [address] [place] [address] Moises Guerrero Social History Tobacco Use Types Packs/Day Years Used Date Smoking Tobacco: Never Assessed Comments Unknown Sex and Gender Information Value Date Recorded Sex Assigned at Not on file Legal Sex Female 2:44 AM GRINDING WHEEL 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
--- OUTSIDE RECORDS SUMMARY | 2024-11-07 17:18 | XMS_ITS | Encounter Summary ---
Author Organization [facility] Address [address] [place] [address] Care Team Providers Care Hospital Receptionist Name Role Phone Unavailable Primary Care Provider Unavailabl e Encounter Details Date Type Department Care Team (Late st Contact Info) Description 02/13/2003 Outpatient Historical [facility] Pediatrics [address] [place] [address] Murtaza Mcnulty MD [address] [place] [address] Social History Tobacco Use Types Packs/Day Years Used Date Smoking Tobacco: Never Assessed Comments Unknown Sex and Gender Information Value Date Recorded Sex Assigned at Not on file Legal Sex Female 2:44 AM HAND BULLDOZER Gender Identity Not on file Sexual Orientation Not on file documented as of this encounter Plan of Treatment Not on file documented as of this encounter Visit Diagnoses Not on filedocumented in this encounter
--- OUTSIDE RECORDS SUMMARY | 2024-11-07 17:18 | XMS_ITS | Encounter Summary ---
Author Organization [facility] Address [address] [place] [address] Care Team Providers Care Wrapper Operator Name Role Phone Unavailable Primary Care Provider Unavailabl e Encounter Details Date Type Department Care Team (Late st Contact Info) Description 05/31/1998 Outpatient Historical [facility] Pediatrics [address] [place] [address] Moises Guerrero Social History Tobacco Use Types Packs/Day Years Used Date Smoking Tobacco: Never Assessed Comments Unknown Sex and Gender Information Value Date Recorded Sex Assigned at Not on file Legal Sex Female 2:44 AM BOOT REPAIRER Gender Identity Not on file Sexual Orientation Not on file documented as of this encounter Plan of Treatment Not on file documented as of this encounter Procedures Procedure Name Priority Date/Time Associated Diagnosis Comments CHG POLIOVIRUS VACCINE LIVE ORAL VFC 05/31/1998 12:00 AM BOOT REPAIRER documented in this encounter Visit Diagnoses Not on filedocumented in this encounter
--- OUTSIDE RECORDS SUMMARY | 2024-11-07 17:18 | XMS_ITS | Encounter Summary ---
Author Organization [facility] Address [address] [place] [address] Care Team Providers Care Milling Machine Set Up Operator Name Role Phone Unavailable Primary Care Provider Unavailabl e Encounter Details Date Type Department Care Team (Late st Contact Info) Description 03/22/2002 Outpatient Historical [facility] Pediatrics [address] [place] [address] Murtaza Mcnulty MD [address] [place] [address] Social History Tobacco Use Types Packs/Day Years Used Date Smoking Tobacco: Never Assessed Comments Unknown Sex and Gender Information Value Date Recorded Sex Assigned at Not on file Legal Sex Female 2:44 AM PINEAPPLE PLANTATION MANAGER Gender Identity Not on file Sexual Orientation Not on file documented as of this encounter Plan of Treatment Not on file documented as of this encounter Visit Diagnoses Not on filedocumented in this encounter
--- OUTSIDE RECORDS SUMMARY | 2024-11-07 17:18 | XMS_ITS | Encounter Summary ---
Author Organization [facility] Address [address] [place] [address] Care Team Providers Care Film Editor Supervisor Name Role Phone Unavailable Primary Care Provider Unavailabl e Encounter Details Date Type Department Care Team (Late st Contact Info) Description 09/21/2000 Outpatient Historical [facility] Pediatrics [place] [address] [facility] [address] [place] [address] Edgar Morton MD [address] [facility] [address] [place] [address] Social History Tobacco Use Types Packs/Day Years Used Date Smoking Tobacco: Never Assessed Comments Unknown Sex and Gender Information Value Date Recorded Sex Assigned at Not on file Legal Sex Female 2:44 AM RISK CONTROL SPECIALIST Gender Identity Not on file Sexual Orientation Not on file documented as of this encounter Plan of Treatment Not on file documented as of this encounter Visit Diagnoses Not on filedocumented in this encounter
--- OUTSIDE RECORDS SUMMARY | 2024-11-07 17:18 | XMS_ITS | Patient Health Record ---
Author Organization [facility] Address [address] [place], [place] [id number] Support Name Relationship Address Phone NITAMAGALIE Emergency Contact Unknown [phone] ANNIKA ALVARES Guarantor Unknown [phone] Reason For Referral No Information Plan Of Treatment No Information Insurance Providers Payer Name Payer Address Payer Phone Subscriber Number Group Number Insured Name Patient Relationship to Insured Coverage Start Date Coverage End Date [facility] [address] [place] [phone] [id number] ANNIKA ALVARES Self - patient is the insured
--- OUTSIDE RECORDS SUMMARY | 2024-11-07 17:18 | XMS_ITS | Encounter Summary ---
Author Organization [facility] Address [address] [place] [address] Care Team Providers Care Rn Building Name Role Phone Unavailable Primary Care Provider Unavailabl e Encounter Details Date Type Department Care Team (Late st Contact Info) Description 01/05/2000 Outpatient Historical [facility] [place] [address] [facility] [address] [place] [address] Kashmir Gunn MD [address] [facility] [address] [place] [address] Social History Tobacco Use Types Packs/Day Years Used Date Smoking Tobacco: Never Assessed Comments Unknown Sex and Gender Information Value Date Recorded Sex Assigned at Not on file Legal Sex Female 2:44 AM ELECTRICAL ASSEMBLY SUPERVISOR Gender Identity Not on file Sexual Orientation Not on file documented as of this encounter Plan of Treatment Not on file documented as of this encounter Visit Diagnoses Not on filedocumented in this encounter
--- OUTSIDE RECORDS SUMMARY | 2024-11-07 17:18 | XMS_ITS | Clinical Summary ---
Author Organization [facility] Address [address] [place] [address] Phone Care Team Providers Care Litigation Manager Name Role Phone Varun Chavez MD Primary [...] 19+ 3-dose series) 2016 Pap Smear 2018 Influenza Immunization (#1) 2024 SARS-COV-2 Immunization ( - season) 2024 Respiratory Syncytial Virus (RSV) Immunization (Adult) [...] making a change Department associated with goal: [facility] Steps to achieve [...] track(2021 2:25 PM CDT) Yes Sandra Rich, [facility] Insurance MEDICAID [employer] Care Teams Litigation Manager Relationship Specialty Start Date End Date Varun Chavez MD PCP - General Internal Medicine 11/13/21
--- OUTSIDE RECORDS SUMMARY | 2024-11-07 17:18 | XMS_ITS | Encounter Summary ---
Author Organization [facility] Address [address] [place] [address] Care Team Providers Care Steam Station Supervisor Name Role Phone Unavailable Primary Care Provider Unavailabl e Encounter Details Date Type Department Care Team (Late st Contact Info) Description 08/23/1998 Outpatient Historical [facility] Pediatrics [place] [address] [place] [address] Moises Guerrero Social History Tobacco Use Types Packs/Day Years Used Date Smoking Tobacco: Never Assessed Comments Unknown Sex and Gender Information Value Date Recorded Sex Assigned at Not on file Legal Sex Female 2:44 AM SUGAR CANE FARM MANAGER Gender Identity Not on file Sexual Orientation Not on file documented as of this encounter Plan of Treatment Not on file documented as of this encounter Visit Diagnoses Not on filedocumented in this encounter
--- OUTSIDE RECORDS SUMMARY | 2024-11-07 17:18 | XMS_ITS | Encounter Summary ---
Author Organization [facility] Address [address] [place] [address] Care Team Providers Care Managed Care Liaison Name Role Phone Unavailable Primary Care Provider Unavailabl e Encounter Details Date Type Department Care Team (Late st Contact Info) Description 06/01/2000 Outpatient Historical [facility] Pediatrics [place] [address] [facility] [address] [place] [address] Kashmir Gunn MD [address] [facility] [address] [place] [address] Social History Tobacco Use Types Packs/Day Years Used Date Smoking Tobacco: Never Assessed Comments Unknown Sex and Gender Information Value Date Recorded Sex Assigned at Not on file Legal Sex Female 2:44 AM MANAGER VISUAL Gender Identity Not on file Sexual Orientation Not on file documented as of this encounter Plan of Treatment Not on file documented as of this encounter Visit Diagnoses Not on filedocumented in this encounter
--- OUTSIDE RECORDS SUMMARY | 2024-11-07 17:18 | XMS_ITS | Encounter Summary ---
Author Organization [facility] Address [address] [place] [address] Care Team Providers Care Production Lapping Machine Operator Name Role Phone Unavailable Primary Care Provider Unavailabl e Encounter Details Date Type Department Care Team (Late st Contact Info) Description 03/05/2001 Outpatient Historical [facility] Pediatrics [place] [address] [facility] [address] [place] [address] Luis Conklin MD [address] [place] [address] Social History Tobacco Use Types Packs/Day Years Used Date Smoking Tobacco: Never Assessed Comments Unknown Sex and Gender Information Value Date Recorded Sex Assigned at Not on file Legal Sex Female 2:44 AM GLOBAL CLIMATE CHANGE ANALYST Gender Identity Not on file Sexual Orientation Not on file documented as of this encounter Plan of Treatment Not on file documented as of this encounter Visit Diagnoses Not on filedocumented in this encounter
--- OUTSIDE RECORDS SUMMARY | 2024-11-07 17:18 | XMS_ITS | Encounter Summary ---
Author Organization [facility] Address [address] [place] [address] Care Team Providers Care Customer Service Associate Name Role Phone Unavailable Primary Care Provider Unavailabl e Encounter Details Date Type Department Care Team (Late st Contact Info) Description 03/26/2000 Outpatient Historical [facility] Pediatrics [place] [address] [facility] [address] [place] [address] Kashmir Gunn MD [address] [facility] [address] [place] [address] Social History Tobacco Use Types Packs/Day Years Used Date Smoking Tobacco: Never Assessed Comments Unknown Sex and Gender Information Value Date Recorded Sex Assigned at Not on file Legal Sex Female 2:44 AM CUSTOMER SERVICE REPRESENTATIVE Gender Identity Not on file Sexual Orientation Not on file documented as of this encounter Plan of Treatment Not on file documented as of this encounter Visit Diagnoses Not on filedocumented in this encounter
--- OUTSIDE RECORDS SUMMARY | 2024-11-07 17:18 | XMS_ITS | Encounter Summary ---
Author Organization [facility] Address [address] [place] [address] Care Team Providers Care Learning Support Resource Room Teacher Name Role Phone Unavailable Primary Care Provider Unavailabl e Encounter Details Date Type Department Care Team (Late st Contact Info) Description 12/03/1998 Outpatient Historical [facility] Pediatrics [place] [address] [place] [address] Moises Guerrero Social History Tobacco Use Types Packs/Day Years Used Date Smoking Tobacco: Never Assessed Comments Unknown Sex and Gender Information Value Date Recorded Sex Assigned at Not on file Legal Sex Female 2:44 AM CARDIOLOGY PHYSICIAN ASSISTANT Gender Identity Not on file Sexual Orientation Not on file documented as of this encounter Plan of Treatment Not on file documented as of this encounter Visit Diagnoses Not on filedocumented in this encounter
[2024-11-07 17:31] LABS: Alanine Aminotransferase 29 U/L (6-35); Albumin Level 3.6 g/dL (3.5-5.1); Alkaline Phosphatase 62 U/L (38-126); Anion Gap 10 mmol/L (4-12); Aspartate Amino Transferase 28 U/L (14-36); Bilirubin,Total 0.3 mg/dL (0.2-1.3); Blood Urea Nitrogen 10 mg/dL (7-17); Calcium 8.8 mg/dL (8.4-10.2); Carbon Dioxide 22 mmol/L (22-30); Chloride 103 mmol/L (98-107); Estimated CRCL calculation 149 ml/min; Estimated Glomerular Filt Rate > 60; Glucose 150 mg/dL (65-110); Potassium 3.2 mmol/L (3.4-5.0); Sodium 135 mmol/L (137-145); Total Protein 6.3 g/dL (6.3-8.2)
[2024-11-07] MEDS: POTASSIUM CITRATE 5 MEQ TAB CR 20 MEQ PO (18:20)
--- NOTE | 2024-11-09 05:51 | PM.OBTRLD ---
OB - Triage/Final Diagnosis Visit Information Date of evaluation: 11/08/24 Reason for evaluation: other (dehydration) Comments/Additional reasons for admission: I have assessed the risk for this patient, Charis Peres, and determined that she would benefit from observation care. Evaluation Laboratory results: Laboratory Tests 11/07/24 11/07/24 11/07/24 15:01 16:34 17:12 WBC 15.3 H RBC 4.05 L Hgb 12.1 Hct 35.9 L MCV 88.6 MCH 29.9 MCHC 33.7 RDW 13.8 Plt Count 239 MPV 10.3 Immature Gran % (Auto) 2.9 H Neut % (Auto) 77.5 H Lymph % (Auto) 7.2 L [place] % (Auto) 9.5 H Eos % (Auto) 2.2 Baso % (Auto) 0.7 Lymph # (Auto) 1.10 [place] # (Auto) 1.5 H Eos # (Auto) 0.3 Baso # (Auto) 0.1 Abs Immat Gran (auto) 0.44 H Absolute Neuts (auto) 11.8 H Absolute Nucleated RBC 0.000 Nucleated RBC % 0.0 Sodium 135 L Potassium 3.2 L Chloride 103 Carbon Dioxide 22 Anion Gap 10 BUN 10 Creatinine 0.51 L Estim Creat Clear Calc 149 Estimated GFR > 60 Glucose 150 H Calcium 8.8 Total Bilirubin 0.3 AST 28 ALT 29 Alkaline Phosphatase 62 Total Protein 6.3 Albumin 3.6 Urine Opiates Screen Negative Urine Methadone Screen Negative Ur Barbiturates Screen Negative Ur Phencyclidine Scrn Negative Ur Amphetamine Screen Negative U Benzodiazepines Scrn Negative Urine Cocaine Screen Negative U Cannabinoids Screen Negative
== END 2024-11-07 18:28 | disposition home or self-care (01) ==
PROVIDERS: Admitting Provider Obstetrics & Gynecology; PCP Emergency Medicine; Visit Provider Obstetrics & Gynecology
DX: O26.892 Other specified pregnancy related conditions, second trimester (principal); Z3A.27 27 weeks gestation of pregnancy; R11.2 Nausea with vomiting, unspecified; E86.0 Dehydration; R00.0 Tachycardia, unspecified; R94.31 Abnormal electrocardiogram [ECG] [EKG]
CPT/HCPCS: 36415; 59025; 76819; 80053; 80307; 85025; 93005; 96361; 96374; A9270; G0378; G0379; J2405; J7120

== ENCOUNTER 2024-11-08 11:30 | Observation (INO) | payer OTHER, SELFPAY ==
[2024-11-08] VITALS (44 sets, daily range): BP systolic 113–128; BP diastolic 70–80; PULSE 96–130; TEMP 36.6; O2SAT 98–100; BMI 32.5
--- OUTSIDE RECORDS SUMMARY | 2024-11-08 11:51 | XMS_ITS | Encounter Summary ---
Author Organization [facility] Address [address] [place] [address] Care Team Providers Care Call Center Dispatcher Name Role Phone Unavailable Primary Care Provider Unavailabl e Encounter Details Date Type Department Care Team (Late st Contact Info) Description 04/29/1999 Outpatient Historical [facility] Pediatrics [place] [address] [place] [address] Moises Guerrero Social History Tobacco Use Types Packs/Day Years Used Date Smoking Tobacco: Never Assessed Comments Unknown Sex and Gender Information Value Date Recorded Sex Assigned at Not on file Legal Sex Female 2:44 AM CONCRETE TECHNICIAN Gender Identity Not on file Sexual Orientation Not on file documented as of this encounter Plan of Treatment Not on file documented as of this encounter Visit Diagnoses Not on filedocumented in this encounter
--- OUTSIDE RECORDS SUMMARY | 2024-11-08 11:51 | XMS_ITS | Encounter Summary ---
Author Organization [facility] Address [address] [place] [address] Care Team Providers Care Consolidator Name Role Phone Unavailable Primary Care Provider Unavailabl e Encounter Details Date Type Department Care Team (Late st Contact Info) Description 11/28/[address] [facility] Pediatrics [place] [address] [place] [address] Moises Guerrero Social History Tobacco Use Types Packs/Day Years Used Date Smoking Tobacco: Never Assessed Comments Unknown Sex and Gender Information Value Date Recorded Sex Assigned at Not on file Legal Sex Female 2:44 AM IMPROVEMENT INTERN Gender Identity Not on file Sexual Orientation Not on file documented as of this encounter Plan of Treatment Not on file documented as of this encounter Visit Diagnoses Not on filedocumented in this encounter
--- OUTSIDE RECORDS SUMMARY | 2024-11-08 11:51 | XMS_ITS | Encounter Summary ---
Author Organization [facility] Address [address] [place] [address] Care Team Providers Care Application Support Name Role Phone Unavailable Primary Care Provider Unavailabl e Encounter Details Date Type Department Care Team (Late st Contact Info) Description 12/17/1998 Outpatient Historical [facility] Pediatrics [place] [address] [place] [address] Moises Guerrero Social History Tobacco Use Types Packs/Day Years Used Date Smoking Tobacco: Never Assessed Comments Unknown Sex and Gender Information Value Date Recorded Sex Assigned at Not on file Legal Sex Female 2:44 AM CASTING MACHINE CONTROL BOARD 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
--- OUTSIDE RECORDS SUMMARY | 2024-11-08 11:51 | XMS_ITS | Encounter Summary ---
Author Organization [facility] Address [address] [place] [address] Care Team Providers Care Flight Tower Dispatcher Name Role Phone Unavailable Primary Care Provider Unavailabl e Encounter Details Date Type Department Care Team (Late st Contact Info) Description 02/13/2003 Outpatient Historical [facility] Pediatrics [address] [place] [address] [place] [address] Murtaza Mcnulty MD [address] [place] [address] Social History Tobacco Use Types Packs/Day Years Used Date Smoking Tobacco: Never Assessed Comments Unknown Sex and Gender Information Value Date Recorded Sex Assigned at Not on file Legal Sex Female 2:44 AM DRILLER BRAKE LINING Gender Identity Not on file Sexual Orientation Not on file documented as of this encounter Plan of Treatment Not on file documented as of this encounter Visit Diagnoses Not on filedocumented in this encounter
--- OUTSIDE RECORDS SUMMARY | 2024-11-08 11:51 | XMS_ITS | Encounter Summary ---
Author Organization [facility] Address [address] [place] [address] Care Team Providers Care Hospital Director Name Role Phone Unavailable Primary Care Provider Unavailabl e Encounter Details Date Type Department Care Team (Late st Contact Info) Description 02/06/2004 Outpatient Historical [facility] Pediatrics [address] [place] [address] Murtaza Mcnulty MD [address] [place] [address] Social History Tobacco Use Types Packs/Day Years Used Date Smoking Tobacco: Never Assessed Comments Unknown Sex and Gender Information Value Date Recorded Sex Assigned at Not on file Legal Sex Female 2:44 AM THERAPEUTIC CASE MANAGER Gender Identity Not on file Sexual Orientation Not on file documented as of this encounter Plan of Treatment Not on file documented as of this encounter Visit Diagnoses Not on filedocumented in this encounter
--- OUTSIDE RECORDS SUMMARY | 2024-11-08 11:51 | XMS_ITS | Encounter Summary ---
Author Organization [facility] Address [address] [place] [address] Care Team Providers Care Instrumental Teacher Name Role Phone Unavailable Primary Care Provider Unavailabl e Encounter Details Date Type Department Care Team (Late st Contact Info) Description 01/14/1998 Outpatient Historical [facility] Pediatrics [place] [address] [place] [address] Moises Guerrero Social History Tobacco Use Types Packs/Day Years Used Date Smoking Tobacco: Never Assessed Comments Unknown Sex and Gender Information Value Date Recorded Sex Assigned at Not on file Legal Sex Female 2:44 AM TUGBOAT MATE Gender Identity Not on file Sexual Orientation Not on file documented as of this encounter Plan of Treatment Not on file documented as of this encounter Visit Diagnoses Not on filedocumented in this encounter
--- OUTSIDE RECORDS SUMMARY | 2024-11-08 11:51 | XMS_ITS | Encounter Summary ---
Author Organization [facility] Address [address] [place] [address] Care Team Providers Care Teacher Selection Specialist Name Role Phone Unavailable Primary Care Provider Unavailabl e Encounter Details Date Type Department Care Team (Late st Contact Info) Description 06/01/2000 Outpatient Historical [facility] Pediatrics [place] [address] [facility] [address] [place] [address] Kashmir Gunn MD [address] [facility] [address] [place] [address] Social History Tobacco Use Types Packs/Day Years Used Date Smoking Tobacco: Never Assessed Comments Unknown Sex and Gender Information Value Date Recorded Sex Assigned at Not on file Legal Sex Female 2:44 AM DIRECTOR PROCESS ENGINEERING Gender Identity Not on file Sexual Orientation Not on file documented as of this encounter Plan of Treatment Not on file documented as of this encounter Visit Diagnoses Not on filedocumented in this encounter
--- OUTSIDE RECORDS SUMMARY | 2024-11-08 11:51 | XMS_ITS | Encounter Summary ---
Author Organization [facility] Address [address] [place] [address] Care Team Providers Care Media Relations Manager Name Role Phone Unavailable Primary Care Provider Unavailabl e Encounter Details Date Type Department Care Team (Late st Contact Info) Description 01/09/2004 Outpatient Historical [facility] Pediatrics [address] [place] [address] Murtaza Mcnulty MD [address] [place] [address] Social History Tobacco Use Types Packs/Day Years Used Date Smoking Tobacco: Never Assessed Comments Unknown Sex and Gender Information Value Date Recorded Sex Assigned at Not on file Legal Sex Female 2:44 AM PLASTIC INJECTION MOLD 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
--- OUTSIDE RECORDS SUMMARY | 2024-11-08 11:51 | XMS_ITS | Encounter Summary ---
Author Organization [facility] Address [address] [place] [address] Care Team Providers Care Cylinder Checker Name Role Phone Unavailable Primary Care Provider Unavailabl e Encounter Details Date Type Department Care Team (Late st Contact Info) Description 07/10/1998 Outpatient Historical [facility] Pediatrics [place] [address] [place] [address] Moises Guerrero Social History Tobacco Use Types Packs/Day Years Used Date Smoking Tobacco: Never Assessed Comments Unknown Sex and Gender Information Value Date Recorded Sex Assigned at Not on file Legal Sex Female 2:44 AM BIOMEDICAL ENGINEERING AIDE Gender Identity Not on file Sexual Orientation Not on file documented as of this encounter Plan of Treatment Not on file documented as of this encounter Visit Diagnoses Not on filedocumented in this encounter
--- OUTSIDE RECORDS SUMMARY | 2024-11-08 11:51 | XMS_ITS | Encounter Summary ---
Author Organization [facility] Address [address] [place] [address] Care Team Providers Care Coremaker Supervisor Name Role Phone Unavailable Primary Care Provider Unavailabl e Encounter Details Date Type Department Care Team (Late st Contact Info) Description 05/28/1998 Outpatient Historical [facility] Pediatrics [place] [address] [place] [address] Moises Guerrero Social History Tobacco Use Types Packs/Day Years Used Date Smoking Tobacco: Never Assessed Comments Unknown Sex and Gender Information Value Date Recorded Sex Assigned at Not on file Legal Sex Female 2:44 AM PLATINUM SMITH Gender Identity Not on file Sexual Orientation Not on file documented as of this encounter Plan of Treatment Not on file documented as of this encounter Visit Diagnoses Not on filedocumented in this encounter
--- OUTSIDE RECORDS SUMMARY | 2024-11-08 11:51 | XMS_ITS | Encounter Summary ---
Author Organization [facility] Address [address] [place] [address] Care Team Providers Care Janitorial Maintenance Worker Name Role Phone Unavailable Primary Care Provider Unavailabl e Encounter Details Date Type Department Care Team (Late st Contact Info) Description 04/03/[address] [facility] [place] [address] [place] [address] Luis Conklin MD [address] [place] [address] Social History Tobacco Use Types Packs/Day Years Used Date Smoking Tobacco: Never Assessed Comments Unknown Sex and Gender Information Value Date Recorded Sex Assigned at Not on file Legal Sex Female 2:44 AM TABLET REPAIR Gender Identity Not on file Sexual Orientation Not on file documented as of this encounter Plan of Treatment Not on file documented as of this encounter Visit Diagnoses Not on filedocumented in this encounter
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
--- OUTSIDE RECORDS SUMMARY | 2024-11-08 11:51 | XMS_ITS | Encounter Summary ---
Author Organization [facility] Address [address] [place] [address] Care Team Providers Care Mine Manager Name Role Phone Unavailable Primary Care Provider Unavailabl e Encounter Details Date Type Department Care Team (Late st Contact Info) Description 03/26/2000 Outpatient Historical [facility] [place] [address] [place] [address] Kashmir Gunn MD [address] [place] [address] Social History Tobacco Use Types Packs/Day Years Used Date Smoking Tobacco: Never Assessed Comments Unknown Sex and Gender Information Value Date Recorded Sex Assigned at Not on file Legal Sex Female 2:44 AM CONSERVATION EDUCATOR Gender Identity Not on file Sexual Orientation Not on file documented as of this encounter Plan of Treatment Not on file documented as of this encounter Visit Diagnoses Not on filedocumented in this encounter
--- OUTSIDE RECORDS SUMMARY | 2024-11-08 11:51 | XMS_ITS | Clinical Summary ---
Author Organization [facility] Address [address] [place] [address] Phone Care Team Providers Care Patcher Wood Welder Name Role Phone Unavailable Primary Care Provider [...] on file Legal Sex Female 2:44 AM COSTUME RENTAL CLERK Gender Identity Not on file Sexual Orientation Not on file Occupation Industry Job Start Date Job End Date Not on file Not on file Not on file Not on file Last Filed Vital Signs Vital Sign Reading Time Taken Comments Blood Pressure 110/80 01/28/2016 11:54 AM COSTUME RENTAL CLERK Pulse 101 01/28/2016 11:54 AM COSTUME RENTAL CLERK Temperature 37.1 C (98.7 F) 01/28/2016 11:54 AM COSTUME RENTAL CLERK Respiratory Rate 18 01/28/2016 11:54 AM COSTUME RENTAL CLERK Oxygen Saturation 97% 01/28/2016 11:54 AM COSTUME RENTAL CLERK Inhaled Oxygen Concentration - - Weight 61.7 kg (136 lb) 01/28/2016 11:54 AM COSTUME RENTAL CLERK Height 160 cm (5' 3) 01/28/2016 11:54 AM COSTUME RENTAL CLERK Body Mass Index 24.09 01/28/2016 11:54 AM COSTUME RENTAL CLERK Plan of Treatment Health Maintenance Due Date Last Done Comments HPV VACCINES (1 - 3-dose series) 2012 DTAP/TDAP/TD VACCINES (1 - Tdap) 2016 HEPATITIS B VACCINES (1 of 3 - 19+ 3-dose series) 10/31 CERVICAL CANCER SCREENING 2018 HPV/Cotest (21-29) 2018 PAP SMEAR 2018 INFLUENZA VACCINE (#1) 2024
--- OUTSIDE RECORDS SUMMARY | 2024-11-08 11:51 | XMS_ITS | Encounter Summary ---
Author Organization [facility] Address [address] [place] [address] Care Team Providers Care Merchandising Team Lead Name Role Phone Unavailable Primary Care Provider Unavailabl e Encounter Details Date Type Department Care Team (Late st Contact Info) Description 03/22/2002 Outpatient Historical [facility]s [address] [place] [address] Murtaza Mcnulty MD [address] [place] [address] Social History Tobacco Use Types Packs/Day Years Used Date Smoking Tobacco: Never Assessed Comments Unknown Sex and Gender Information Value Date Recorded Sex Assigned at Not on file Legal Sex Female 2:44 AM TELEVISION HOST Gender Identity Not on file Sexual Orientation Not on file documented as of this encounter Plan of Treatment Not on file documented as of this encounter Visit Diagnoses Not on filedocumented in this encounter
--- OUTSIDE RECORDS SUMMARY | 2024-11-08 11:51 | XMS_ITS | Encounter Summary ---
Author Organization [facility] Address [address] [place] [address] Care Team Providers Care Underground Heavy Equipment Operator Name Role Phone Unavailable Primary Care Provider Unavailabl e Encounter Details Date Type Department Care Team (Late st Contact Info) Description 01/06/1999 Outpatient Historical [facility] [place] [address] [place] [address] Moises Guerrero Social History Tobacco Use Types Packs/Day Years Used Date Smoking Tobacco: Never Assessed Comments Unknown Sex and Gender Information Value Date Recorded Sex Assigned at Not on file Legal Sex Female 2:44 AM STARBUCKS CLERK Gender Identity Not on file Sexual Orientation Not on file documented as of this encounter Plan of Treatment Not on file documented as of this encounter Visit Diagnoses Not on filedocumented in this encounter
--- OUTSIDE RECORDS SUMMARY | 2024-11-08 11:51 | XMS_ITS | Encounter Summary ---
Author Organization [facility] Address [address] [place] [address] Care Team Providers Care Commercial Service Technician Name Role Phone Unavailable Primary Care Provider Unavailabl e Encounter Details Date Type Department Care Team (Late st Contact Info) Description 05/31/1998 Outpatient Historical [facility] Pediatrics [address] [place] [address] Moises Guerrero Social History Tobacco Use Types Packs/Day Years Used Date Smoking Tobacco: Never Assessed Comments Unknown Sex and Gender Information Value Date Recorded Sex Assigned at Not on file Legal Sex Female 2:44 AM THREAT MONITORING ANALYST Gender Identity Not on file Sexual Orientation Not on file documented as of this encounter Plan of Treatment Not on file documented as of this encounter Procedures Procedure Name Priority Date/Time Associated Diagnosis Comments CHG HEPATITIS B VACCINE PED ADOL IM 3 DOSE VFC 05/31/1998 12:00 AM THREAT MONITORING ANALYST CHG DTAP VACCINE <7 YO IM VFC 05/31/1998 12:00 AM THREAT MONITORING ANALYST documented in this encounter Visit Diagnoses Not on filedocumented in this encounter
--- OUTSIDE RECORDS SUMMARY | 2024-11-08 11:51 | XMS_ITS | Encounter Summary ---
Author Organization [facility] Address [address] [place] [address] Care Team Providers Care Grave Digger Name Role Phone Unavailable Primary Care Provider Unavailabl e Encounter Details Date Type Department Care Team (Late st Contact Info) Description 06/06/2001 Outpatient Historical [facility] [place] [address] [facility] [address] [place] [address] Kashmir Gunn MD [address] [facility] [address] [place] [address] Social History Tobacco Use Types Packs/Day Years Used Date Smoking Tobacco: Never Assessed Comments Unknown Sex and Gender Information Value Date Recorded Sex Assigned at Not on file Legal Sex Female 2:44 AM OPERATIONS OFFICER AFLOAT Gender Identity Not on file Sexual Orientation Not on file documented as of this encounter Plan of Treatment Not on file documented as of this encounter Visit Diagnoses Not on filedocumented in this encounter
--- OUTSIDE RECORDS SUMMARY | 2024-11-08 11:51 | XMS_ITS | Encounter Summary ---
Author Organization [facility] Address [address] [place] [address] Care Team Providers Care Drum Stock Clerk Name Role Phone Unavailable Primary Care Provider Unavailabl e Encounter Details Date Type Department Care Team (Late st Contact Info) Description 11/04/2004 Outpatient Historical [facility] [address] [place] [address] Murtaza Mcnulty MD [address] [place] [address] Social History Tobacco Use Types Packs/Day Years Used Date Smoking Tobacco: Never Assessed Comments Unknown Sex and Gender Information Value Date Recorded Sex Assigned at Not on file Legal Sex Female 2:44 AM MOLDING TECHNICIAN Gender Identity Not on file Sexual Orientation Not on file documented as of this encounter Plan of Treatment Not on file documented as of this encounter Visit Diagnoses Not on filedocumented in this encounter
--- OUTSIDE RECORDS SUMMARY | 2024-11-08 11:51 | XMS_ITS | Clinical Summary ---
Author Organization [facility] Address [address] [place] [address] Phone Care Team Providers Care Slubber Runner Name Role Phone Varun Chavez MD Primary [...] making a change Department associated with goal: [facility] Steps [...] Insurance MEDICAID [employer] Care Teams Slubber Runner Relationship Specialty Start Date End Date Varun Chavez MD PCP - General Internal Medicine 11/13/21
--- OUTSIDE RECORDS SUMMARY | 2024-11-08 11:51 | XMS_ITS | Encounter Summary ---
Author Organization [facility] Address [address] [place] [address] Care Team Providers Care Hotel Or Motel Receptionist Name Role Phone Unavailable Primary Care Provider Unavailabl e Encounter Details Date Type Department Care Team (Late st Contact Info) Description 02/05/2000 Outpatient Historical [facility] [place] [address] [place] [address] Kashmir Gunn MD [address] [facility] [address] [place] [address] Social History Tobacco Use Types Packs/Day Years Used Date Smoking Tobacco: Never Assessed Comments Unknown Sex and Gender Information Value Date Recorded Sex Assigned at Not on file Legal Sex Female 2:44 AM OSTOMY CARE NURSE Gender Identity Not on file Sexual Orientation Not on file documented as of this encounter Plan of Treatment Not on file documented as of this encounter Visit Diagnoses Not on filedocumented in this encounter
--- OUTSIDE RECORDS SUMMARY | 2024-11-08 11:51 | XMS_ITS | Encounter Summary ---
Author Organization [facility] Address [address] [place] [address] Care Team Providers Care Site Technician Name Role Phone Unavailable Primary Care Provider Unavailabl e Encounter Details Date Type Department Care Team (Late st Contact Info) Description 06/04/2003 Outpatient Historical [facility] Pediatrics [address] [place] [address] Murtaza Mcnulty MD [address] [place] [address] Social History Tobacco Use Types Packs/Day Years Used Date Smoking Tobacco: Never Assessed Comments Unknown Sex and Gender Information Value Date Recorded Sex Assigned at Not on file Legal Sex Female 2:44 AM DIRECTOR OF VOCATIONAL GUIDANCE Gender Identity Not on file Sexual Orientation Not on file documented as of this encounter Plan of Treatment Not on file documented as of this encounter Visit Diagnoses Not on filedocumented in this encounter
--- OUTSIDE RECORDS SUMMARY | 2024-11-08 11:51 | XMS_ITS | Encounter Summary ---
Author Organization [facility] Address [address] [place] [address] Care Team Providers Care Respiratory Therapist Name Role Phone Unavailable Primary Care Provider Unavailabl e Encounter Details Date Type Department Care Team (Late st Contact Info) Description 04/09/1998 Outpatient Historical [facility] Pediatrics [place] [address] [place] [address] Moises Guerrero Social History Tobacco Use Types Packs/Day Years Used Date Smoking Tobacco: Never Assessed Comments Unknown Sex and Gender Information Value Date Recorded Sex Assigned at Not on file Legal Sex Female 2:44 AM RETENTION REPRESENTATIVE Gender Identity Not on file Sexual Orientation Not on file documented as of this encounter Plan of Treatment Not on file documented as of this encounter Visit Diagnoses Not on filedocumented in this encounter
--- OUTSIDE RECORDS SUMMARY | 2024-11-08 11:51 | XMS_ITS | Encounter Summary ---
Author Organization [facility] Address [address] [place] [address] Care Team Providers Care Senior Business Objects Developer Name Role Phone Unavailable Primary Care Provider Unavailabl e Encounter Details Date Type Department Care Team (Late st Contact Info) Description 08/25/2001 Outpatient Historical [facility] [place] [address] [facility] [address] [place] [address] Kashmir Gunn MD [address] [facility] [address] [place] [address] Social History Tobacco Use Types Packs/Day Years Used Date Smoking Tobacco: Never Assessed Comments Unknown Sex and Gender Information Value Date Recorded Sex Assigned at Not on file Legal Sex Female 2:44 AM JOB TRACER Gender Identity Not on file Sexual Orientation Not on file documented as of this encounter Plan of Treatment Not on file documented as of this encounter Visit Diagnoses Not on filedocumented in this encounter
--- OUTSIDE RECORDS SUMMARY | 2024-11-08 11:51 | XMS_ITS | Encounter Summary ---
Author Organization [facility] Address [address] [place] [address] Care Team Providers Care Alliance Manager Name Role Phone Unavailable Primary Care Provider Unavailabl e Encounter Details Date Type Department Care Team (Late st Contact Info) Description 12/03/[address] [facility] Pediatrics [place] [address] [place] [address] Moises Guerrero Social History Tobacco Use Types Packs/Day Years Used Date Smoking Tobacco: Never Assessed Comments Unknown Sex and Gender Information Value Date Recorded Sex Assigned at Not on file Legal Sex Female 2:44 AM SWAMPER Gender Identity Not on file Sexual Orientation Not on file documented as of this encounter Plan of Treatment Not on file documented as of this encounter Visit Diagnoses Not on filedocumented in this encounter
--- OUTSIDE RECORDS SUMMARY | 2024-11-08 11:51 | XMS_ITS | Encounter Summary ---
Author Organization [facility] Address [address] [place] [address] Care Team Providers Care Store Warehouse Associate Name Role Phone Unavailable Primary Care Provider Unavailabl e Encounter Details Date Type Department Care Team (Late st Contact Info) Description 05/06/2004 Outpatient Historical [facility] Pediatrics [address] [place] [address] Murtaza Mcnulty MD [address] [place] [address] Social History Tobacco Use Types Packs/Day Years Used Date Smoking Tobacco: Never Assessed Comments Unknown Sex and Gender Information Value Date Recorded Sex Assigned at Not on file Legal Sex Female 2:44 AM PAINT SPECIALIST Gender Identity Not on file Sexual Orientation Not on file documented as of this encounter Plan of Treatment Not on file documented as of this encounter Visit Diagnoses Not on filedocumented in this encounter
--- OUTSIDE RECORDS SUMMARY | 2024-11-08 11:51 | XMS_ITS | Encounter Summary ---
Author Organization [facility] Address 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
--- OUTSIDE RECORDS SUMMARY | 2024-11-08 11:51 | XMS_ITS | Encounter Summary ---
Author Organization [facility] Address [address] [place] [address] Care Team Providers Care Blueprint Clerk Name Role Phone Unavailable Primary Care Provider Unavailabl e Encounter Details Date Type Department Care Team (Late st Contact Info) Description 11/28/1998 Outpatient Historical [facility] Pediatrics [place] [address] [place] [address] Moises Guerrero Social History Tobacco Use Types Packs/Day Years Used Date Smoking Tobacco: Never Assessed Comments Unknown Sex and Gender Information Value Date Recorded Sex Assigned at Not on file Legal Sex Female 2:44 AM EDUCATION SALES CONSULTANT Gender Identity Not on file Sexual Orientation Not on file documented as of this encounter Plan of Treatment Not on file documented as of this encounter Visit Diagnoses Not on filedocumented in this encounter
--- OUTSIDE RECORDS SUMMARY | 2024-11-08 11:51 | XMS_ITS | Encounter Summary ---
Author Organization [facility] Address [address] [place] [address] Care Team Providers Care Single Pointed Operator Name Role Phone Unavailable Primary Care Provider Unavailabl e Encounter Details Date Type Department Care Team (Late st Contact Info) Description 06/12/1999 Outpatient Historical [facility] Pediatrics [place] [address] [place] [address] Moises Guerrero Social History Tobacco Use Types Packs/Day Years Used Date Smoking Tobacco: Never Assessed Comments Unknown Sex and Gender Information Value Date Recorded Sex Assigned at Not on file Legal Sex Female 2:44 AM ROD BUSTER HELPER Gender Identity Not on file Sexual Orientation Not on file documented as of this encounter Plan of Treatment Not on file documented as of this encounter Visit Diagnoses Not on filedocumented in this encounter
--- OUTSIDE RECORDS SUMMARY | 2024-11-08 11:51 | XMS_ITS | Encounter Summary ---
Author Organization [facility] Address [address] [place] [address] Care Team Providers Care Movie Shot Camera Operator Name Role Phone Unavailable Primary Care Provider Unavailabl e Encounter Details Date Type Department Care Team (Late st Contact Info) Description 02/12/2004 Outpatient Historical [facility] Pediatrics [address] [place] [address] Murtaza Mcnulty MD [address] [place] [address] Social History Tobacco Use Types Packs/Day Years Used Date Smoking Tobacco: Never Assessed Comments Unknown Sex and Gender Information Value Date Recorded Sex Assigned at Not on file Legal Sex Female 2:44 AM LIQUID YEAST SUPERVISOR Gender Identity Not on file Sexual Orientation Not on file documented as of this encounter Plan of Treatment Not on file documented as of this encounter Visit Diagnoses Not on filedocumented in this encounter
--- OUTSIDE RECORDS SUMMARY | 2024-11-08 11:51 | XMS_ITS | Encounter Summary ---
Author Organization [facility] Address [address] [place] [address] Care Team Providers Care Entry Level Receptionist Name Role Phone Unavailable Primary Care Provider Unavailabl e Encounter Details Date Type Department Care Team (Late st Contact Info) Description 01/07/1998 Outpatient Historical [facility] Pediatric[facility] [place] [address] [place] [address] Moises Guerrero Social History Tobacco Use Types Packs/Day Years Used Date Smoking Tobacco: Never Assessed Comments Unknown Sex and Gender Information Value Date Recorded Sex Assigned at Not on file Legal Sex Female 2:44 AM COUNTER HELP Gender Identity Not on file Sexual Orientation Not on file documented as of this encounter Plan of Treatment Not on file documented as of this encounter Visit Diagnoses Not on filedocumented in this encounter
--- OUTSIDE RECORDS SUMMARY | 2024-11-08 11:51 | XMS_ITS | Encounter Summary ---
Author Organization [facility] Address [address] [place] [address] Care Team Providers Care Grain Receiver Name Role Phone Unavailable Primary Care Provider Unavailabl e Encounter Details Date Type Department Care Team (Late st Contact Info) Description 07/25/1999 Outpatient Historical [facility] Pediatrics [place] [address] [place] [address] Moises Guerrero Social History Tobacco Use Types Packs/Day Years Used Date Smoking Tobacco: Never Assessed Comments Unknown Sex and Gender Information Value Date Recorded Sex Assigned at Not on file Legal Sex Female 2:44 AM PROCESSING INSPECTOR Gender Identity Not on file Sexual Orientation Not on file documented as of this encounter Plan of Treatment Not on file documented as of this encounter Visit Diagnoses Not on filedocumented in this encounter
--- OUTSIDE RECORDS SUMMARY | 2024-11-08 11:51 | XMS_ITS | Encounter Summary ---
Author Organization [facility] Address [address] [place] [address] Care Team Providers Care Puff Iron Operator Name Role Phone Unavailable Primary Care Provider Unavailabl e Encounter Details Date Type Department Care Team (Late st Contact Info) Description 07/09/2004 Outpatient Historical [facility] Pediatrics [address] [place] [address] Murtaza Mcnulty MD [address] [place] [address] Social History Tobacco Use Types Packs/Day Years Used Date Smoking Tobacco: Never Assessed Comments Unknown Sex and Gender Information Value Date Recorded Sex Assigned at Not on file Legal Sex Female 2:44 AM MOTORCYCLE REPAIRER Gender Identity Not on file Sexual Orientation Not on file documented as of this encounter Plan of Treatment Not on file documented as of this encounter Visit Diagnoses Not on filedocumented in this encounter
--- OUTSIDE RECORDS SUMMARY | 2024-11-08 11:51 | XMS_ITS | Encounter Summary ---
Author Organization [facility] Address [address] [place] [address] Care Team Providers Care Heat Pump Installer Name Role Phone Unavailable Primary Care Provider Unavailabl e Encounter Details Date Type Department Care Team (Late st Contact Info) Description 08/11/1999 Outpatient Historical [facility] Pediatrics [place] [address] [place] [address] Moises Guerrero Social History Tobacco Use Types Packs/Day Years Used Date Smoking Tobacco: Never Assessed Comments Unknown Sex and Gender Information Value Date Recorded Sex Assigned at Not on file Legal Sex Female 2:44 AM FILTER ASSEMBLER Gender Identity Not on file Sexual Orientation Not on file documented as of this encounter Plan of Treatment Not on file documented as of this encounter Visit Diagnoses Not on filedocumented in this encounter
--- OUTSIDE RECORDS SUMMARY | 2024-11-08 11:51 | XMS_ITS | Encounter Summary ---
Author Organization [facility] Address [address] [place] [address] Care Team Providers Care Machine Umbrella Tipper Name Role Phone Unavailable Primary Care Provider Unavailabl e Encounter Details Date Type Department Care Team (Late st Contact Info) Description 01/05/2000 Outpatient Historical [facility] Pediatric[place] [address] [facility] [address] [place] [address] Kashmir Gunn MD [address] [address] [place] [address] Social History Tobacco Use Types Packs/Day Years Used Date Smoking Tobacco: Never Assessed Comments Unknown Sex and Gender Information Value Date Recorded Sex Assigned at Not on file Legal Sex Female 2:44 AM SOAP CHIPPER Gender Identity Not on file Sexual Orientation Not on file documented as of this encounter Plan of Treatment Not on file documented as of this encounter Visit Diagnoses Not on filedocumented in this encounter
--- OUTSIDE RECORDS SUMMARY | 2024-11-08 11:51 | XMS_ITS | Encounter Summary ---
Author Organization [facility] Address [address] [place] [address] Care Team Providers Care Clinical Documentation Developer Name Role Phone Unavailable Primary Care Provider Unavailabl e Encounter Details Date Type Department Care Team (Late st Contact Info) Description 08/15/1999 Outpatient Historical [facility] Pediatric[place] [address] [place] [address] Moises Guerrero Social History Tobacco Use Types Packs/Day Years Used Date Smoking Tobacco: Never Assessed Comments Unknown Sex and Gender Information Value Date Recorded Sex Assigned at Not on file Legal Sex Female 2:44 AM FOOTWEAR SALES COORDINATOR Gender Identity Not on file Sexual Orientation Not on file documented as of this encounter Plan of Treatment Not on file documented as of this encounter Visit Diagnoses Not on filedocumented in this encounter
--- OUTSIDE RECORDS SUMMARY | 2024-11-08 11:51 | XMS_ITS | Encounter Summary ---
Author Organization [facility] Address [address] [place] [address] Care Team Providers Care Abattoir Supervisor Name Role Phone Unavailable Primary Care Provider Unavailabl e Encounter Details Date Type Department Care Team (Late st Contact Info) Description 09/21/2000 Outpatient Historical [facility] Pediatrics [place] [address] [facility] [address] [place] [address] Edgar Morton MD [address] [facility] [address] [place] [address] Social History Tobacco Use Types Packs/Day Years Used Date Smoking Tobacco: Never Assessed Comments Unknown Sex and Gender Information Value Date Recorded Sex Assigned at Not on file Legal Sex Female 2:44 AM HOG PUSHER Gender Identity Not on file Sexual Orientation Not on file documented as of this encounter Plan of Treatment Not on file documented as of this encounter Visit Diagnoses Not on filedocumented in this encounter
--- OUTSIDE RECORDS SUMMARY | 2024-11-08 11:51 | XMS_ITS | Encounter Summary ---
Author Organization [facility] Address [address] [place] [address] Care Team Providers Care Senior Instructional Designer Name Role Phone Unavailable Primary Care Provider Unavailabl e Encounter Details Date Type Department Care Team (Late st Contact Info) Description 11/15/2003 Outpatient Historical [facility] Pediatrics [place] [address] [facility] [address] [place] [address] Kashmir Gunn MD [address] [facility] [address] [place] [address] Social History Tobacco Use Types Packs/Day Years Used Date Smoking Tobacco: Never Assessed Comments Unknown Sex and Gender Information Value Date Recorded Sex Assigned at Not on file Legal Sex Female 2:44 AM SENIOR QA ENGINEER Gender Identity Not on file Sexual Orientation Not on file documented as of this encounter Plan of Treatment Not on file documented as of this encounter Procedures Procedure Name Priority Date/Time Associated Diagnosis Comments CHG POLIOVIRUS IPV [facility] 4 12:00 AM CDT CHG MMR VACCINE SQ [facility] 4 12:00 AM CDT CHG DTAP VACCINE <7 YO IM [facility] 11/15/2003 12:00 AM CDT documented in this encounter Visit Diagnoses Not on filedocumented in this encounter
--- OUTSIDE RECORDS SUMMARY | 2024-11-08 11:51 | XMS_ITS | Encounter Summary ---
Author Organization [facility] Address [address] [place] [address] Care Team Providers Care Envelope Machine Operator Name Role Phone Unavailable Primary Care Provider Unavailabl e Encounter Details Date Type Department Care Team (Late st Contact Info) Description 08/23/1998 Outpatient Historical [facility] Pediatrics [place] [address] [place] [address] Moises Guerrero Social History Tobacco Use Types Packs/Day Years Used Date Smoking Tobacco: Never Assessed Comments Unknown Sex and Gender Information Value Date Recorded Sex Assigned at Not on file Legal Sex Female 2:44 AM BREEDING TECHNICIAN Gender Identity Not on file Sexual Orientation Not on file documented as of this encounter Plan of Treatment Not on file documented as of this encounter Visit Diagnoses Not on filedocumented in this encounter
--- OUTSIDE RECORDS SUMMARY | 2024-11-08 11:51 | XMS_ITS | Encounter Summary ---
Author Organization [facility] Address [address] [place] [address] Care Team Providers Care Referral Agent Name Role Phone Unavailable Primary Care Provider Unavailabl e Encounter Details Date Type Department Care Team (Late st Contact Info) Description 03/05/2001 Outpatient Historical [facility] Pediatrics [place] [address] [facility] [address] [place] [address] Luis Conklin MD [address] [place] [address] Social History Tobacco Use Types Packs/Day Years Used Date Smoking Tobacco: Never Assessed Comments Unknown Sex and Gender Information Value Date Recorded Sex Assigned at Not on file Legal Sex Female 2:44 AM BOAT AND PLANT UTILITY SUPERVISOR Gender Identity Not on file Sexual Orientation Not on file documented as of this encounter Plan of Treatment Not on file documented as of this encounter Visit Diagnoses Not on filedocumented in this encounter
--- OUTSIDE RECORDS SUMMARY | 2024-11-08 11:51 | XMS_ITS | Encounter Summary ---
Author Organization [facility] Address [address] [place] [address] Care Team Providers Care Automatic Pilot Mechanic Name Role Phone Unavailable Primary Care Provider Unavailabl e Encounter Details Date Type Department Care Team (Late st Contact Info) Description 08/23/1998 Outpatient Historical [facility] Pediatrics [place] [address] [place] [address] Moises Guerrero Social History Tobacco Use Types Packs/Day Years Used Date Smoking Tobacco: Never Assessed Comments Unknown Sex and Gender Information Value Date Recorded Sex Assigned at Not on file Legal Sex Female 2:44 AM FORM RAISER Gender Identity Not on file Sexual Orientation Not on file documented as of this encounter Plan of Treatment Not on file documented as of this encounter Visit Diagnoses Not on filedocumented in this encounter
--- OUTSIDE RECORDS SUMMARY | 2024-11-08 11:51 | XMS_ITS | Patient Health Record ---
Author Organization [facility] Address [address] [place], [place] [id number] Support Name Relationship Address Phone NITAMAGALIE Emergency Contact Unknown ANNIKA ALVARES Guarantor Unknown [phone] Reason For Referral No Information Plan Of Treatment No Information Insurance Providers Payer Name Payer Address Payer Phone Subscriber Number Group Number Insured Name Patient Relationship to Insured Coverage Start Date Coverage End Date [facility] [address] [place] [phone] [id number] ANNIKA ALVARES Self - patient is the insured
--- OUTSIDE RECORDS SUMMARY | 2024-11-08 11:51 | XMS_ITS | Encounter Summary ---
Author Organization [facility] Address [address] [place] [address] Care Team Providers Care Recycling Attendant Name Role Phone Unavailable Primary Care Provider Unavailabl e Encounter Details Date Type Department Care Team (Late st Contact Info) Description 10/25/1998 Outpatient Historical [facility] Pediatrics [place] [address] [place] [address] Moises Guerrero Social History Tobacco Use Types Packs/Day Years Used Date Smoking Tobacco: Never Assessed Comments Unknown Sex and Gender Information Value Date Recorded Sex Assigned at Not on file Legal Sex Female 2:44 AM RN APPEALS Gender Identity Not on file Sexual Orientation Not on file documented as of this encounter Plan of Treatment Not on file documented as of this encounter Visit Diagnoses Not on filedocumented in this encounter
--- OUTSIDE RECORDS SUMMARY | 2024-11-08 11:51 | XMS_ITS | Encounter Summary ---
Author Organization [facility] Address [address] [place] [address] Care Team Providers Care Deputy Administrator Name Role Phone Unavailable Primary Care Provider Unavailabl e Encounter Details Date Type Department Care Team (Late st Contact Info) Description 05/31/1998 Outpatient Historical [facility] Pediatrics [address] [place] [address] Moises Guerrero Social History Tobacco Use Types Packs/Day Years Used Date Smoking Tobacco: Never Assessed Comments Unknown Sex and Gender Information Value Date Recorded Sex Assigned at Not on file Legal Sex Female 2:44 AM MANAGER CONTROL Gender Identity Not on file Sexual Orientation Not on file documented as of this encounter Plan of Treatment Not on file documented as of this encounter Procedures Procedure Name Priority Date/Time Associated Diagnosis Comments CHG POLIOVIRUS VACCINE LIVE ORAL [facility] 05/31/1998 12:00 AM MANAGER CONTROL documented in this encounter Visit Diagnoses Not on filedocumented in this encounter
--- OUTSIDE RECORDS SUMMARY | 2024-11-08 11:51 | XMS_ITS | Encounter Summary ---
Author Organization [facility] Address [address] [place] [address] Care Team Providers Care Chemical Engineering Intern Name Role Phone Unavailable Primary Care Provider Unavailabl e Encounter Details Date Type Department Care Team (Late st Contact Info) Description 05/29/1999 Outpatient Historical [facility] Pediatrics [place] [address] [place] [address] Moises Guerrero Social History Tobacco Use Types Packs/Day Years Used Date Smoking Tobacco: Never Assessed Comments Unknown Sex and Gender Information Value Date Recorded Sex Assigned at Not on file Legal Sex Female 2:44 AM PRODUCTION CONTROL PLANNER Gender Identity Not on file Sexual Orientation Not on file documented as of this encounter Plan of Treatment Not on file documented as of this encounter Visit Diagnoses Not on filedocumented in this encounter
--- OUTSIDE RECORDS SUMMARY | 2024-11-08 12:42 | XMS_ITS | Encounter Summary ---
Author Organization [facility] Address [address] [place] [address] Care Team Providers Care Supervisor Metal Fabricating Name Role Phone Unavailable Primary Care Provider Unavailabl e Encounter Details Date Type Department Care Team (Late st Contact Info) Description 04/03/2000 Outpatient Historical [facility] Pediatrics [place] [address] [facility] [address] [place] [address] Luis Conklin MD [address] [place] [address] Social History Tobacco Use Types Packs/Day Years Used Date Smoking Tobacco: Never Assessed Comments Unknown Sex and Gender Information Value Date Recorded Sex Assigned at Not on file Legal Sex Female 2:44 AM MONITORING AND EVALUATION ADVISOR Gender Identity Not on file Sexual Orientation Not on file documented as of this encounter Plan of Treatment Not on file documented as of this encounter Visit Diagnoses Not on filedocumented in this encounter
--- OUTSIDE RECORDS SUMMARY | 2024-11-08 12:42 | XMS_ITS | Encounter Summary ---
Author Organization [facility] Address [address] [place] [address] Care Team Providers Care Perfect Bind Machine Operator Name Role Phone Unavailable Primary Care Provider Unavailabl e Encounter Details Date Type Department Care Team (Late st Contact Info) Description 01/05/2000 Outpatient Historical [facility] Pediatrics [place] [address] [facility] [address] [place] [address] Kashmir Gunn MD [address] [facility] [address] [place] [address] Social History Tobacco Use Types Packs/Day Years Used Date Smoking Tobacco: Never Assessed Comments Unknown Sex and Gender Information Value Date Recorded Sex Assigned at Not on file Legal Sex Female 2:44 AM WINE STEWARD Gender Identity Not on file Sexual Orientation Not on file documented as of this encounter Plan of Treatment Not on file documented as of this encounter Visit Diagnoses Not on filedocumented in this encounter
--- OUTSIDE RECORDS SUMMARY | 2024-11-08 12:42 | XMS_ITS | Encounter Summary ---
Author Organization [facility] Address [address] [place] [address] Care Team Providers Care Manager Chinese Name Role Phone Unavailable Primary Care Provider Unavailabl e Encounter Details Date Type Department Care Team (Late st Contact Info) Description 08/15/1999 Outpatient Historical [facility] Pediatrics [place] [address] [place] [address] Moises Guerrero Social History Tobacco Use Types Packs/Day Years Used Date Smoking Tobacco: Never Assessed Comments Unknown Sex and Gender Information Value Date Recorded Sex Assigned at Not on file Legal Sex Female 2:44 AM PILE HEADER Gender Identity Not on file Sexual Orientation Not on file documented as of this encounter Plan of Treatment Not on file documented as of this encounter Visit Diagnoses Not on filedocumented in this encounter
--- OUTSIDE RECORDS SUMMARY | 2024-11-08 12:42 | XMS_ITS | Encounter Summary ---
Author Organization [facility] Address [address] [place] [address] Care Team Providers Care Tooth Cutter Spur Name Role Phone Unavailable Primary Care Provider Unavailabl e Encounter Details Date Type Department Care Team (Late st Contact Info) Description 05/29/1999 Outpatient Historical [facility] Pediatrics [place] [address] [place] [address] Moises Guerrero Social History Tobacco Use Types Packs/Day Years Used Date Smoking Tobacco: Never Assessed Comments Unknown Sex and Gender Information Value Date Recorded Sex Assigned at Not on file Legal Sex Female 2:44 AM TOPLINE BEADING MACHINE TENDER Gender Identity Not on file Sexual Orientation Not on file documented as of this encounter Plan of Treatment Not on file documented as of this encounter Visit Diagnoses Not on filedocumented in this encounter
--- OUTSIDE RECORDS SUMMARY | 2024-11-08 12:42 | XMS_ITS | Clinical Summary ---
Author Organization [facility] Address [address] [place] [address] Phone Care Team Providers Care Bank Officer Name Role Phone Varun Chavez MD Primary Care Provider [phone] Allergies Active Allergy Reactions Criticality Noted Date [...] Known Problems Father Óscar Anxiety disorder Half-Sister Eilene (19) Depression Half-Sister Eileen (19) Anxiety disorder [...] a change Department associated with goal: [facility] Steps to [...] track(2021 2:25 PM CDT) Yes Sandra Rich, [facility] Insurance MEDICAID [employer] Care Teams Bank Officer Relationship Specialty Start Date End Date Varun Chavez MD PCP - General Internal Medicine 11/13/21
--- OUTSIDE RECORDS SUMMARY | 2024-11-08 12:42 | XMS_ITS | Encounter Summary ---
Author Organization [facility] Address [address] [place] [address] Care Team Providers Care Communications Project Manager Name Role Phone Unavailable Primary Care Provider Unavailabl e Encounter Details Date Type Department Care Team (Late st Contact Info) Description 09/21/2000 Outpatient Historical [facility] Pediatrics [place] [address] [facility] [address] [place] [address] Edgar Morton MD [address] [facility] [address] [place] [address] Social History Tobacco Use Types Packs/Day Years Used Date Smoking Tobacco: Never Assessed Comments Unknown Sex and Gender Information Value Date Recorded Sex Assigned at Not on file Legal Sex Female 2:44 AM RATE SETTER Gender Identity Not on file Sexual Orientation Not on file documented as of this encounter Plan of Treatment Not on file documented as of this encounter Visit Diagnoses Not on filedocumented in this encounter
--- OUTSIDE RECORDS SUMMARY | 2024-11-08 12:42 | XMS_ITS | Encounter Summary ---
Author Organization [facility] Address [address] [place] [address] Care Team Providers Care Engine Manager Name Role Phone Unavailable Primary Care Provider Unavailabl e Encounter Details Date Type Department Care Team (Late st Contact Info) Description 08/11/1999 Outpatient Historical [facility] Pediatrics [place] [address] [place] [address] Moises Guerrero Social History Tobacco Use Types Packs/Day Years Used Date Smoking Tobacco: Never Assessed Comments Unknown Sex and Gender Information Value Date Recorded Sex Assigned at Not on file Legal Sex Female 2:44 AM CANDY CATCHER Gender Identity Not on file Sexual Orientation Not on file documented as of this encounter Plan of Treatment Not on file documented as of this encounter Visit Diagnoses Not on filedocumented in this encounter
--- OUTSIDE RECORDS SUMMARY | 2024-11-08 12:42 | XMS_ITS | Encounter Summary ---
Author Organization [facility] Address [address] [place] [address] Care Team Providers Care Project Coach Name Role Phone Unavailable Primary Care Provider Unavailabl e Encounter Details Date Type Department Care Team (Late st Contact Info) Description 06/12/1999 Outpatient Historical [facility] Pediatrics [place] [address] [place] [address] Moises Guerrero Social History Tobacco Use Types Packs/Day Years Used Date Smoking Tobacco: Never Assessed Comments Unknown Sex and Gender Information Value Date Recorded Sex Assigned at Not on file Legal Sex Female 2:44 AM CANDY PULLER Gender Identity Not on file Sexual Orientation Not on file documented as of this encounter Plan of Treatment Not on file documented as of this encounter Visit Diagnoses Not on filedocumented in this encounter
--- OUTSIDE RECORDS SUMMARY | 2024-11-08 12:42 | XMS_ITS | Encounter Summary ---
Author Organization [facility] Address [address] [place] [address] Care Team Providers Care Jack Machine Operator Name Role Phone Unavailable Primary Care Provider Unavailabl e Encounter Details Date Type Department Care Team (Late st Contact Info) Description 07/25/1999 Outpatient Historical [facility] Pediatrics [place] [address] [place] [address] Moises Guerrero Social History Tobacco Use Types Packs/Day Years Used Date Smoking Tobacco: Never Assessed Comments Unknown Sex and Gender Information Value Date Recorded Sex Assigned at Not on file Legal Sex Female 2:44 AM PANEL SAW 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
--- OUTSIDE RECORDS SUMMARY | 2024-11-08 12:42 | XMS_ITS | Encounter Summary ---
Author Organization [facility] Address [address] [place] [address] Care Team Providers Care Entry Level Lab Technician Name Role Phone Unavailable Primary Care Provider Unavailabl e Encounter Details Date Type Department Care Team (Late st Contact Info) Description 03/26/2000 Outpatient Historical [facility] Pediatrics [place] [address] [facility] [address] [place] [address] Kashmir Gunn MD [address] [facility] [address] [place] [address] Social History Tobacco Use Types Packs/Day Years Used Date Smoking Tobacco: Never Assessed Comments Unknown Sex and Gender Information Value Date Recorded Sex Assigned at Not on file Legal Sex Female 2:44 AM BOLT SAWYER Gender Identity Not on file Sexual Orientation Not on file documented as of this encounter Plan of Treatment Not on file documented as of this encounter Visit Diagnoses Not on filedocumented in this encounter
--- OUTSIDE RECORDS SUMMARY | 2024-11-08 12:42 | XMS_ITS | Encounter Summary ---
Author Organization [facility] Address [address] [place] [address] Care Team Providers Care Regulatory Lead Name Role Phone Unavailable Primary Care Provider Unavailabl e Encounter Details Date Type Department Care Team (Late st Contact Info) Description 02/05/2000 Outpatient Historical [facility] Pediatrics [place] [address] [facility] [address] [place] [address] Kashmir Gunn MD [address] [facility] [address] [place] [address] Social History Tobacco Use Types Packs/Day Years Used Date Smoking Tobacco: Never Assessed Comments Unknown Sex and Gender Information Value Date Recorded Sex Assigned at Not on file Legal Sex Female 2:44 AM JOURNALISM INTERN Gender Identity Not on file Sexual Orientation Not on file documented as of this encounter Plan of Treatment Not on file documented as of this encounter Visit Diagnoses Not on filedocumented in this encounter
--- OUTSIDE RECORDS SUMMARY | 2024-11-08 12:43 | XMS_ITS | Encounter Summary ---
Author Organization [facility] Address [address] [place] [address] Care Team Providers Care Underground Production Foreperson Name Role Phone Unavailable Primary Care Provider Unavailabl e Encounter Details Date Type Department Care Team (Late st Contact Info) Description 02/06/2004 Outpatient Historical [facility] Pediatrics [address] [place] [address] Murtaza Mcnulty MD [address] [place] [address] Social History Tobacco Use Types Packs/Day Years Used Date Smoking Tobacco: Never Assessed Comments Unknown Sex and Gender Information Value Date Recorded Sex Assigned at Not on file Legal Sex Female 2:44 AM BED CONTROL SPECIALIST Gender Identity Not on file Sexual Orientation Not on file documented as of this encounter Plan of Treatment Not on file documented as of this encounter Visit Diagnoses Not on filedocumented in this encounter
--- OUTSIDE RECORDS SUMMARY | 2024-11-08 12:43 | XMS_ITS | Encounter Summary ---
Author Organization [facility] Address [address] [place] [address] Care Team Providers Care Agent Ticketing Gate Name Role Phone Unavailable Primary Care Provider Unavailabl e Encounter Details Date Type Department Care Team (Late st Contact Info) Description 01/09/2004 Outpatient Historical [facility] Pediatrics [address] [place] [address] Murtaza Mcnulty MD [address] [place] [address] Social History Tobacco Use Types Packs/Day Years Used Date Smoking Tobacco: Never Assessed Comments Unknown Sex and Gender Information Value Date Recorded Sex Assigned at Not on file Legal Sex Female 2:44 AM MARKET RISK ANALYST Gender Identity Not on file Sexual Orientation Not on file documented as of this encounter Plan of Treatment Not on file documented as of this encounter Visit Diagnoses Not on filedocumented in this encounter
--- OUTSIDE RECORDS SUMMARY | 2024-11-08 12:43 | XMS_ITS | Encounter Summary ---
Author Organization [facility] Address [address] [place] [address] Care Team Providers Care Technology Consultant Name Role Phone Unavailable Primary Care Provider Unavailabl e Encounter Details Date Type Department Care Team (Late st Contact Info) Description 01/07/1998 Outpatient Historical [facility] Pediatrics [place] [address] [place] [address] Moises Guerrero Social History Tobacco Use Types Packs/Day Years Used Date Smoking Tobacco: Never Assessed Comments Unknown Sex and Gender Information Value Date Recorded Sex Assigned at Not on file Legal Sex Female 2:44 AM DIESEL MAINTENANCE ELECTRICIAN Gender Identity Not on file Sexual Orientation Not on file documented as of this encounter Plan of Treatment Not on file documented as of this encounter Visit Diagnoses Not on filedocumented in this encounter
--- OUTSIDE RECORDS SUMMARY | 2024-11-08 12:43 | XMS_ITS | Encounter Summary ---
Author Organization [facility] Address [address] [place] [address] Care Team Providers Care Emergency Preparedness Coordinator Name Role Phone Unavailable Primary Care Provider Unavailabl e Encounter Details Date Type Department Care Team (Late st Contact Info) Description 08/23/1998 Outpatient Historical [facility] Pediatrics [place] [address] [place] [address] Moises Guerrero Social History Tobacco Use Types Packs/Day Years Used Date Smoking Tobacco: Never Assessed Comments Unknown Sex and Gender Information Value Date Recorded Sex Assigned at Not on file Legal Sex Female 2:44 AM ASSOCIATE BROKER Gender Identity Not on file Sexual Orientation Not on file documented as of this encounter Plan of Treatment Not on file documented as of this encounter Visit Diagnoses Not on filedocumented in this encounter
--- OUTSIDE RECORDS SUMMARY | 2024-11-08 12:43 | XMS_ITS | Encounter Summary ---
Author Organization [facility] Address [address] [place] [address] Care Team Providers Care Dye Weigher Name Role Phone Unavailable Primary Care Provider Unavailabl e Encounter Details Date Type Department Care Team (Late st Contact Info) Description 03/05/2001 Outpatient Historical [facility] Pediatrics [place] [address] [facility] [place] [address] Luis Conklin MD [address] [place] [address] Social History Tobacco Use Types Packs/Day Years Used Date Smoking Tobacco: Never Assessed Comments Unknown Sex and Gender Information Value Date Recorded Sex Assigned at Not on file Legal Sex Female 2:44 AM REAL ESTATE JOB TITLES Gender Identity Not on file Sexual Orientation Not on file documented as of this encounter Plan of Treatment Not on file documented as of this encounter Visit Diagnoses Not on filedocumented in this encounter
--- OUTSIDE RECORDS SUMMARY | 2024-11-08 12:43 | XMS_ITS | Encounter Summary ---
Author Organization [facility] Address [address] [place] [address] Care Team Providers Care Senior C Web Developer Name Role Phone Unavailable Primary Care Provider Unavailabl e Encounter Details Date Type Department Care Team (Late st Contact Info) Description 07/10/1998 Outpatient Historical [facility] Pediatrics [place] [address] [place] [address] Moises Guerrero Social History Tobacco Use Types Packs/Day Years Used Date Smoking Tobacco: Never Assessed Comments Unknown Sex and Gender Information Value Date Recorded Sex Assigned at Not on file Legal Sex Female 2:44 AM SACK KEEPER Gender Identity Not on file Sexual Orientation Not on file documented as of this encounter Plan of Treatment Not on file documented as of this encounter Visit Diagnoses Not on filedocumented in this encounter
--- OUTSIDE RECORDS SUMMARY | 2024-11-08 12:43 | XMS_ITS | Encounter Summary ---
Author Organization [facility] Address [address] [place] [address] Care Team Providers Care Cardio Tech Name Role Phone Unavailable Primary Care Provider Unavailabl e Encounter Details Date Type Department Care Team (Late st Contact Info) Description 12/17/1998 Outpatient Historical [facility] Pediatrics [place] [address] [place] [address] Moises Guerrero Social History Tobacco Use Types Packs/Day Years Used Date Smoking Tobacco: Never Assessed Comments Unknown Sex and Gender Information Value Date Recorded Sex Assigned at Not on file Legal Sex Female 2:44 AM PROMOTIONS TEAM LEADER Gender Identity Not on file Sexual Orientation Not on file documented as of this encounter Plan of Treatment Not on file documented as of this encounter Visit Diagnoses Not on filedocumented in this encounter
--- OUTSIDE RECORDS SUMMARY | 2024-11-08 12:43 | XMS_ITS | Encounter Summary ---
Author Organization [facility] Address [address] [place] [address] Care Team Providers Care Security Project Manager Name Role Phone Unavailable Primary Care Provider Unavailabl e Encounter Details Date Type Department Care Team (Late st Contact Info) Description 11/15/[address] [facility] Pediatrics [place] [address] [place] [address] Kashmir Gunn MD [address] [facility] [address] [place] [address] Social History Tobacco Use Types Packs/Day Years Used Date Smoking Tobacco: Never Assessed Comments Unknown Sex and Gender Information Value Date Recorded Sex Assigned at Not on file Legal Sex Female 2:44 AM BALL MAKER Gender Identity Not on file Sexual [...]
--- OUTSIDE RECORDS SUMMARY | 2024-11-08 12:43 | XMS_ITS | Encounter Summary ---
Author Organization [facility] Address [address] [place] [address] Care Team Providers Care General Distillery Worker Name Role Phone Unavailable Primary Care Provider Unavailabl e Encounter Details Date Type Department Care Team (Late st Contact Info) Description 03/22/2002 Outpatient Historical [facility] Pediatrics [address] [place] [address] Murtaza Mcnulty MD [address] [place] [address] Social History Tobacco Use Types Packs/Day Years Used Date Smoking Tobacco: Never Assessed Comments Unknown Sex and Gender Information Value Date Recorded Sex Assigned at Not on file Legal Sex Female 2:44 AM SOCIAL WORK ADMINISTRATOR Gender Identity Not on file Sexual Orientation Not on file documented as of this encounter Plan of Treatment Not on file documented as of this encounter Visit Diagnoses Not on filedocumented in this encounter
--- OUTSIDE RECORDS SUMMARY | 2024-11-08 12:43 | XMS_ITS | Encounter Summary ---
Author Organization [facility] Address [address] [place] [address] Care Team Providers Care Errand Runner Name Role Phone Unavailable Primary Care Provider Unavailabl e Encounter Details Date Type Department Care Team (Late st Contact Info) Description 08/25/2001 Outpatient Historical [facility] Pediatrics [place] [address] [facility] [facility] [address] [place] [address] Kashmir Gunn MD [address] [facility] [address] [place] [address] Social History Tobacco Use Types Packs/Day Years Used Date Smoking Tobacco: Never Assessed Comments Unknown Sex and Gender Information Value Date Recorded Sex Assigned at Not on file Legal Sex Female 2:44 AM WOOD REPATCHER Gender Identity Not on file Sexual Orientation Not on file documented as of this encounter Plan of Treatment Not on file documented as of this encounter Visit Diagnoses Not on filedocumented in this encounter
--- OUTSIDE RECORDS SUMMARY | 2024-11-08 12:43 | XMS_ITS | Encounter Summary ---
Author Organization [facility] Address [address] [place] [address] Care Team Providers Care Powder Coater Name Role Phone Unavailable Primary Care Provider Unavailabl e Encounter Details Date Type Department Care Team (Late st Contact Info) Description 11/28/1998 Outpatient Historical [facility] Pediatrics [place] [address] [place] [address] Moises Guerrero Social History Tobacco Use Types Packs/Day Years Used Date Smoking Tobacco: Never Assessed Comments Unknown Sex and Gender Information Value Date Recorded Sex Assigned at Not on file Legal Sex Female 2:44 AM CONTINUOUS PROCESS TANNER ROTARY DRUM Gender Identity Not on file Sexual Orientation Not on file documented as of this encounter Plan of Treatment Not on file documented as of this encounter Visit Diagnoses Not on filedocumented in this encounter
--- OUTSIDE RECORDS SUMMARY | 2024-11-08 12:43 | XMS_ITS | Encounter Summary ---
Author Organization [facility] Address [address] [place] [address] Care Team Providers Care Apple Peeler Operator Name Role Phone Unavailable Primary Care Provider Unavailabl e Encounter Details Date Type Department Care Team (Late st Contact Info) Description 11/04/2004 Outpatient Historical [facility] Pediatrics [address] [place] [address] Murtaza Mcnulty MD [address] [place] [address] Social History Tobacco Use Types Packs/Day Years Used Date Smoking Tobacco: Never Assessed Comments Unknown Sex and Gender Information Value Date Recorded Sex Assigned at Not on file Legal Sex Female 2:44 AM AIRCRAFT PILOT Gender Identity Not on file Sexual Orientation Not on file documented as of this encounter Plan of Treatment Not on file documented as of this encounter Visit Diagnoses Not on filedocumented in this encounter
--- OUTSIDE RECORDS SUMMARY | 2024-11-08 12:43 | XMS_ITS | Encounter Summary ---
Author Organization [facility] Address [address] [place] [address] Care Team Providers Care Senior Product Integrity Engineer Name Role Phone Unavailable Primary Care Provider Unavailabl e Encounter Details Date Type Department Care Team (Late st Contact Info) Description 04/09/1998 Outpatient Historical [facility] Pediatrics [place] [address] [place] [address] Moises Guerrero Social History Tobacco Use Types Packs/Day Years Used Date Smoking Tobacco: Never Assessed Comments Unknown Sex and Gender Information Value Date Recorded Sex Assigned at Not on file Legal Sex Female 2:44 AM RESTAURANT BARTENDER Gender Identity Not on file Sexual Orientation Not on file documented as of this encounter Plan of Treatment Not on file documented as of this encounter Visit Diagnoses Not on filedocumented in this encounter
--- OUTSIDE RECORDS SUMMARY | 2024-11-08 12:43 | XMS_ITS | Encounter Summary ---
Author Organization [facility] Address [address] [place] [address] Care Team Providers Care Sample Builder Name Role Phone Unavailable Primary Care Provider Unavailabl e Encounter Details Date Type Department Care Team (Late st Contact Info) Description 11/28/1998 Outpatient Historical [facility] Pediatrics [place] [address] [place] [address] Moises Guerrero Social History Tobacco Use Types Packs/Day Years Used Date Smoking Tobacco: Never Assessed Comments Unknown Sex and Gender Information Value Date Recorded Sex Assigned at Not on file Legal Sex Female 2:44 AM EMAIL MARKETING SPECIALIST Gender Identity Not on file Sexual Orientation Not on file documented as of this encounter Plan of Treatment Not on file documented as of this encounter Visit Diagnoses Not on filedocumented in this encounter
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
--- OUTSIDE RECORDS SUMMARY | 2024-11-08 12:43 | XMS_ITS | Encounter Summary ---
Author Organization [facility] Address [address] [place] [address] Care Team Providers Care Cruise Agent Name Role Phone Unavailable Primary Care Provider Unavailabl e Encounter Details Date Type Department Care Team (Late st Contact Info) Description 08/23/1998 Outpatient Historical [facility] Pediatrics [place] [address] [place] [address] Moises Guerrero Social History Tobacco Use Types Packs/Day Years Used Date Smoking Tobacco: Never Assessed Comments Unknown Sex and Gender Information Value Date Recorded Sex Assigned at Not on file Legal Sex Female 2:44 AM SR. LOGISTICS ANALYST Gender Identity Not on file Sexual Orientation Not on file documented as of this encounter Plan of Treatment Not on file documented as of this encounter Visit Diagnoses Not on filedocumented in this encounter
--- OUTSIDE RECORDS SUMMARY | 2024-11-08 12:43 | XMS_ITS | Encounter Summary ---
Author Organization [facility] Address [address] [place] [address] Care Team Providers Care Homicide Squad Captain Name Role Phone Unavailable Primary Care Provider Unavailabl e Encounter Details Date Type Department Care Team (Late st Contact Info) Description 10/25/1998 Outpatient Historical [facility] Pediatrics [place] [address] [place] [address] Moises Guerrero Social History Tobacco Use Types Packs/Day Years Used Date Smoking Tobacco: Never Assessed Comments Unknown Sex and Gender Information Value Date Recorded Sex Assigned at Not on file Legal Sex Female 2:44 AM CURATOR HERBARIUM Gender Identity Not on file Sexual Orientation Not on file documented as of this encounter Plan of Treatment Not on file documented as of this encounter Visit Diagnoses Not on filedocumented in this encounter
--- OUTSIDE RECORDS SUMMARY | 2024-11-08 12:43 | XMS_ITS | Clinical Summary ---
Author Organization [facility] Address [address] [place] [address] Phone Care Team Providers Care Road Marker Name Role Phone Unavailable Primary Care [...] on file Legal Sex Female 2:44 AM FITTING ROOM OPERATOR Gender Identity Not on file Sexual Orientation Not on file Occupation Industry Job Start Date Job End Date Not on file Not on file Not on file Not on file Last Filed Vital Signs Vital Sign Reading Time Taken Comments Blood Pressure 110/80 01/28/2016 11:54 AM FITTING ROOM OPERATOR Pulse 101 01/28/2016 11:54 AM FITTING ROOM OPERATOR Temperature 37.1 C (98.7 F) 01/28/2016 11:54 AM FITTING ROOM OPERATOR Respiratory Rate 18 01/28/2016 11:54 AM FITTING ROOM OPERATOR Oxygen Saturation 97% 01/28/2016 11:54 AM FITTING ROOM OPERATOR Inhaled Oxygen Concentration - - Weight 61.7 kg (136 lb) 01/28/2016 11:54 AM FITTING ROOM OPERATOR Height 160 cm (5' 3) 01/28/2016 11:54 AM FITTING ROOM OPERATOR Body Mass Index 24.09 01/28/2016 11:54 AM FITTING ROOM OPERATOR Plan of Treatment Health Maintenance Due Date Last Done Comments HPV VACCINES (1 - 3-dose series) 2012 DTAP/TDAP/TD VACCINES (1 - Tdap) 2016 HEPATITIS B VACCINES (1 of 3 - 19+ 3-dose series) 10/31 CERVICAL CANCER SCREENING 2018 HPV/Cotest (21-29) 2018 PAP SMEAR 2018 INFLUENZA VACCINE (#1) 2024
--- OUTSIDE RECORDS SUMMARY | 2024-11-08 12:43 | XMS_ITS | Encounter Summary ---
Author Organization [facility] Address [address] [place] [address] Care Team Providers Care Quality Assurance Qa Lab Analyst Name Role Phone Unavailable Primary Care Provider Unavailabl e Encounter Details Date Type Department Care Team (Late st Contact Info) Description 05/06/[address] [facility] Pediatrics [address] [place] [address] Murtaza Mcnulty MD [address] [place] [address] Social History Tobacco Use Types Packs/Day Years Used Date Smoking Tobacco: Never Assessed Comments Unknown Sex and Gender Information Value Date Recorded Sex Assigned at Not on file Legal Sex Female 2:44 AM CONTROLS PROJECT ENGINEER Gender Identity Not on file Sexual Orientation Not on file documented as of this encounter Plan of Treatment Not on file documented as of this encounter Visit Diagnoses Not on filedocumented in this encounter
--- OUTSIDE RECORDS SUMMARY | 2024-11-08 12:43 | XMS_ITS | Encounter Summary ---
Author Organization [facility] Address [address] [place] [address] Care Team Providers Care Valet Parking Attendant Name Role Phone Unavailable Primary Care Provider Unavailabl e Encounter Details Date Type Department Care Team (Late st Contact Info) Description 05/31/[address] [facility] Pediatrics [address] [place] [address] Moises Guerrero Social History Tobacco Use Types Packs/Day Years Used Date Smoking Tobacco: Never Assessed Comments Unknown Sex and Gender Information Value Date Recorded Sex Assigned at Not on file Legal Sex Female 2:44 AM ASSISTANT SECRETARY Gender Identity Not on file Sexual Orientation Not on file documented as of this encounter Plan of Treatment Not on file documented as of this encounter Procedures Procedure Name Priority Date/Time Associated Diagnosis Comments CHG POLIOVIRUS VACCINE LIVE ORAL VFC 05/31/1998 12:00 AM ASSISTANT SECRETARY documented in this encounter Visit Diagnoses Not on filedocumented in this encounter
--- OUTSIDE RECORDS SUMMARY | 2024-11-08 12:43 | XMS_ITS | Encounter Summary ---
Author Organization [facility] Address [address] [place] [address] Care Team Providers Care Formula Clerk Name Role Phone Unavailable Primary Care Provider Unavailabl e Encounter Details Date Type Department Care Team (Late st Contact Info) Description 02/13/2003 Outpatient Historical [facility] Pediatrics [address] [place] [address] Murtaza Mcnulty MD [address] [place] [address] Social History Tobacco Use Types Packs/Day Years Used Date Smoking Tobacco: Never Assessed Comments Unknown Sex and Gender Information Value Date Recorded Sex Assigned at Not on file Legal Sex Female 2:44 AM THREAD WEAVER Gender Identity Not on file Sexual Orientation Not on file documented as of this encounter Plan of Treatment Not on file documented as of this encounter Visit Diagnoses Not on filedocumented in this encounter
--- OUTSIDE RECORDS SUMMARY | 2024-11-08 12:43 | XMS_ITS | Encounter Summary ---
Author Organization [facility] Address [address] [place] [address] Care Team Providers Care Revit Drafter Name Role Phone Unavailable Primary Care Provider Unavailabl e Encounter Details Date Type Department Care Team (Late st Contact Info) Description 04/29/1999 Outpatient Historical [facility] Pediatrics [place] [address] [place] [address] Moises Guerrero Social History Tobacco Use Types Packs/Day Years Used Date Smoking Tobacco: Never Assessed Comments Unknown Sex and Gender Information Value Date Recorded Sex Assigned at Not on file Legal Sex Female 2:44 AM LOSS CONTROL MANAGER Gender Identity Not on file Sexual Orientation Not on file documented as of this encounter Plan of Treatment Not on file documented as of this encounter Visit Diagnoses Not on filedocumented in this encounter
--- OUTSIDE RECORDS SUMMARY | 2024-11-08 12:43 | XMS_ITS | Encounter Summary ---
Author Organization [facility] Address [address] [place] [address] Care Team Providers Care Packaging Assembler Name Role Phone Unavailable Primary Care Provider Unavailabl e Encounter Details Date Type Department Care Team (Late st Contact Info) Description 01/06/[address] [facility] Pediatrics [place] [address] [place] [address] Moises Guerrero Social History Tobacco Use Types Packs/Day Years Used Date Smoking Tobacco: Never Assessed Comments Unknown Sex and Gender Information Value Date Recorded Sex Assigned at Not on file Legal Sex Female 2:44 AM ZYGLO INSPECTOR Gender Identity Not on file Sexual Orientation Not on file documented as of this encounter Plan of Treatment Not on file documented as of this encounter Visit Diagnoses Not on filedocumented in this encounter
--- OUTSIDE RECORDS SUMMARY | 2024-11-08 12:43 | XMS_ITS | Encounter Summary ---
Author Organization [facility] Address [address] [place] [address] Care Team Providers Care Stump Shooter Name Role Phone Unavailable Primary Care Provider Unavailabl e Encounter Details Date Type Department Care Team (Late st Contact Info) Description 09/06/1998 Outpatient Historical [facility] Pediatrics [place] [address] [place] [address] Moises Guerrero Social History Tobacco Use Types Packs/Day Years Used Date Smoking Tobacco: Never Assessed Comments Unknown Sex and Gender Information Value Date Recorded Sex Assigned at Not on file Legal Sex Female 2:44 AM STAGE SET UP 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
--- OUTSIDE RECORDS SUMMARY | 2024-11-08 12:43 | XMS_ITS | Encounter Summary ---
Author Organization [facility] Address [address] [place] [address] Care Team Providers Care Director Of Sales Marketing Name Role Phone Unavailable Primary Care Provider Unavailabl e Encounter Details Date Type Department Care Team (Late st Contact Info) Description 12/03/1998 Outpatient Historical [facility] Pediatrics [place] [address] [place] [address] Moises Guerrero Social History Tobacco Use Types Packs/Day Years Used Date Smoking Tobacco: Never Assessed Comments Unknown Sex and Gender Information Value Date Recorded Sex Assigned at Not on file Legal Sex Female 2:44 AM DOPE MIXER Gender Identity Not on file Sexual Orientation Not on file documented as of this encounter Plan of Treatment Not on file documented as of this encounter Visit Diagnoses Not on filedocumented in this encounter
--- OUTSIDE RECORDS SUMMARY | 2024-11-08 12:43 | XMS_ITS | Encounter Summary ---
Author Organization [facility] Address [address] [place] [address] Care Team Providers Care Backhoe Operator Name Role Phone Unavailable Primary Care Provider Unavailabl e Encounter Details Date Type Department Care Team (Late st Contact Info) Description 06/01/2000 Outpatient Historical [facility] Pediatrics [place] [address] [facility] [address] [place] [address] Kashmir Gunn MD [address] [facility] [address] [place] [address] Social History Tobacco Use Types Packs/Day Years Used Date Smoking Tobacco: Never Assessed Comments Unknown Sex and Gender Information Value Date Recorded Sex Assigned at Not on file Legal Sex Female 2:44 AM GIRL FRIDAY Gender Identity Not on file Sexual Orientation Not on file documented as of this encounter Plan of Treatment Not on file documented as of this encounter Visit Diagnoses Not on filedocumented in this encounter
--- OUTSIDE RECORDS SUMMARY | 2024-11-08 12:43 | XMS_ITS | Encounter Summary ---
Author Organization [facility] Address [address] [place] [address] Care Team Providers Care Plant Protection Supervisor Name Role Phone Unavailable Primary Care Provider Unavailabl e Encounter Details Date Type Department Care Team (Late st Contact Info) Description 05/28/1998 Outpatient Historical [facility] Pediatrics [place] [address] [place] [address] Moises Guerrero Social History Tobacco Use Types Packs/Day Years Used Date Smoking Tobacco: Never Assessed Comments Unknown Sex and Gender Information Value Date Recorded Sex Assigned at Not on file Legal Sex Female 2:44 AM PIPE ORGAN TUNER AND REPAIRER Gender Identity Not on file Sexual Orientation Not on file documented as of this encounter Plan of Treatment Not on file documented as of this encounter Visit Diagnoses Not on filedocumented in this encounter
--- OUTSIDE RECORDS SUMMARY | 2024-11-08 12:43 | XMS_ITS | Encounter Summary ---
Author Organization [facility] Address [address] [place] [address] Care Team Providers Care Loan Supervisor Name Role Phone Unavailable Primary Care Provider Unavailabl e Encounter Details Date Type Department Care Team (Late st Contact Info) Description 07/09/2004 Outpatient Historical [facility] Pediatrics [address] [place] [address] Murtaza Mcnulty MD [address] [place] [address] Social History Tobacco Use Types Packs/Day Years Used Date Smoking Tobacco: Never Assessed Comments Unknown Sex and Gender Information Value Date Recorded Sex Assigned at Not on file Legal Sex Female 2:44 AM PRESS TENDER SHORT GOODS Gender Identity Not on file Sexual Orientation Not on file documented as of this encounter Plan of Treatment Not on file documented as of this encounter Visit Diagnoses Not on filedocumented in this encounter
--- OUTSIDE RECORDS SUMMARY | 2024-11-08 12:43 | XMS_ITS | Encounter Summary ---
Author Organization [facility] Address [address] [place] [address] Care Team Providers Care Damper Maker Name Role Phone Unavailable Primary Care Provider Unavailabl e Encounter Details Date Type Department Care Team (Late st Contact Info) Description 06/04/2003 Outpatient Historical [facility] Pediatrics [address] [place] [address] Murtaza Mcnulty MD [address] [place] [address] Social History Tobacco Use Types Packs/Day Years Used Date Smoking Tobacco: Never Assessed Comments Unknown Sex and Gender Information Value Date Recorded Sex Assigned at Not on file Legal Sex Female 2:44 AM SUPERINTENDENT RENTING MANAGING Gender Identity Not on file Sexual Orientation Not on file documented as of this encounter Plan of Treatment Not on file documented as of this encounter Visit Diagnoses Not on filedocumented in this encounter
--- OUTSIDE RECORDS SUMMARY | 2024-11-08 12:43 | XMS_ITS | Encounter Summary ---
Author Organization [facility] Address [address] [place] [address] Care Team Providers Care Technical Assistant Name Role Phone Unavailable Primary Care Provider Unavailabl e Encounter Details Date Type Department Care Team (Late st Contact Info) Description 06/06/2001 Outpatient Historical [facility] Pediatrics [place] [address] [facility] [address] [place] [address] Kashmir Gunn MD [address] [facility] [address] [place] [address] Social History Tobacco Use Types Packs/Day Years Used Date Smoking Tobacco: Never Assessed Comments Unknown Sex and Gender Information Value Date Recorded Sex Assigned at Not on file Legal Sex Female 2:44 AM CONTRACTING SUPPORT SPECIALIST Gender Identity Not on file Sexual Orientation Not on file documented as of this encounter Plan of Treatment Not on file documented as of this encounter Visit Diagnoses Not on filedocumented in this encounter
--- OUTSIDE RECORDS SUMMARY | 2024-11-08 12:43 | XMS_ITS | Encounter Summary ---
Author Organization [facility] Address [address] [place] [address] Care Team Providers Care Tour Agent Name Role Phone Unavailable Primary Care Provider Unavailabl e Encounter Details Date Type Department Care Team (Late st Contact Info) Description 01/14/1998 Outpatient Historical [facility] Pediatrics [place] [address] [place] [address] Moises Guerrero Social History Tobacco Use Types Packs/Day Years Used Date Smoking Tobacco: Never Assessed Comments Unknown Sex and Gender Information Value Date Recorded Sex Assigned at Not on file Legal Sex Female 2:44 AM BEE KEEPER Gender Identity Not on file Sexual Orientation Not on file documented as of this encounter Plan of Treatment Not on file documented as of this encounter Visit Diagnoses Not on filedocumented in this encounter
--- OUTSIDE RECORDS SUMMARY | 2024-11-08 12:43 | XMS_ITS | Encounter Summary ---
Author Organization [facility] Address [address] [place] [address] Care Team Providers Care Casualty Underwriter Name Role Phone Unavailable Primary Care Provider Unavailabl e Encounter Details Date Type Department Care Team (Late st Contact Info) Description 05/31/1998 Outpatient Historical [facility] Pediatrics [address] [place] [address] Moises Guerrero Social History Tobacco Use Types Packs/Day Years Used Date Smoking Tobacco: Never Assessed Comments Unknown Sex and Gender Information Value Date Recorded Sex Assigned at Not on file Legal Sex Female 2:44 AM DOOR FITTER Gender Identity Not on file Sexual Orientation Not on file documented as of this encounter Plan of Treatment Not on file documented as of this encounter Procedures Procedure Name Priority Date/Time Associated Diagnosis Comments CHG HEPATITIS B VACCINE PED ADOL IM 3 DOSE VFC 05/31/1998 12:00 AM DOOR FITTER CHG DTAP VACCINE <7 YO IM VFC 05/31/1998 12:00 AM DOOR FITTER documented in this encounter Visit Diagnoses Not on filedocumented in this encounter
--- OUTSIDE RECORDS SUMMARY | 2024-11-08 12:43 | XMS_ITS | Encounter Summary ---
Author Organization [facility] Address [address] [place] [address] Care Team Providers Care Financial Retirement Plan Specialist Name Role Phone Unavailable Primary Care Provider Unavailabl e Encounter Details Date Type Department Care Team (Late st Contact Info) Description 02/12/2004 Outpatient Historical [facility] Pediatrics [address] [place] [address] Murtaza Mcnulty MD [address] [place] [address] Social History Tobacco Use Types Packs/Day Years Used Date Smoking Tobacco: Never Assessed Comments Unknown Sex and Gender Information Value Date Recorded Sex Assigned at Not on file Legal Sex Female 2:44 AM BRACELET FORM COVERER Gender Identity Not on file Sexual Orientation Not on file documented as of this encounter Plan of Treatment Not on file documented as of this encounter Visit Diagnoses Not on filedocumented in this encounter
[2024-11-08] MEDS: LACTATED RINGERS 1,000 ML 125 ML IV CONT (13:06)
[2024-11-08] MEDS: METOCLOPRAMIDE HCL INJ 10 MG/2 ML VIAL IV PUSH (13:26)
--- NOTE | 2024-11-08 13:45 | OBADM ---
This patient, Charis Peres, admitted to the OB room OB Post 113 for observation. Patient/family oriented to hospital policies and general routines including ID bracelet, bed and alarms, visiting hours, pain management, procedures, bathroom and other care routines, personal items, smoking policy, room service/diet, and visiting hours. Patient/Family are encouraged to report perceived risks to care and to ask questions if they do not understand what they are told or what they should do.
[2024-11-08 14:45] LABS: SARS-CoV-2 RNA PCR Positive (Negative)
--- NOTE | 2024-11-13 08:05 | PM.OBTRLD ---
OB - Triage/Final Diagnosis Visit Information Reason for evaluation: other (Nausea and vomiting) Comments/Additional reasons for admission: I have assessed the risk for this patient, Charis Peres, and determined that she would benefit from observation care. Evaluation Laboratory results: Laboratory Tests 11/08/24 14:01 SARS-CoV-2 RNA (RT-PCR) Positive A
== END 2024-11-08 15:40 | disposition home or self-care (01) ==
PROVIDERS: Admitting Provider Obstetrics & Gynecology; PCP Emergency Medicine; Visit Provider Obstetrics & Gynecology Gynecology
DX: O21.9 Vomiting of pregnancy, unspecified (principal); Z3A.28 28 weeks gestation of pregnancy; O98.512 Other viral diseases complicating pregnancy, second trimester; U07.1 COVID-19
CPT/HCPCS: 87635; 96361; 96374; 96375; G0378; G0379; J2765; J7120

== ENCOUNTER 2024-11-21 10:33 | Outpatient (CLI) | payer OTHER, SELFPAY ==
--- OUTSIDE RECORDS SUMMARY | 2024-11-21 11:23 | XMS_ITS | Encounter Summary ---
Author Organization [facility] Address [address] [place] [address] Care Team Providers Care Keyseating Machine Set Up Operator Name Role Phone Unavailable Primary Care Provider Unavailabl e Encounter Details Date Type Department Care Team (Late st Contact Info) Description 01/14/1998 Outpatient Historical [facility] Pediatrics [place] [address] [place] [address] Moises Guerrero Social History Tobacco Use Types Packs/Day Years Used Date Smoking Tobacco: Never Assessed Comments Unknown Sex and Gender Information Value Date Recorded Sex Assigned at Not on file Legal Sex Female 2:44 AM CONCRETE 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
--- OUTSIDE RECORDS SUMMARY | 2024-11-21 11:23 | XMS_ITS | Encounter Summary ---
Author Organization [facility] Address [address] [place] [address] Care Team Providers Care Special Forces Warrant Officer Name Role Phone Unavailable Primary Care Provider Unavailabl e Encounter Details Date Type Department Care Team (Late st Contact Info) Description 02/12/2004 Outpatient Historical [facility] Pediatrics [address] [place] [address] Murtaza Mcnulty MD [address] [place] [address] Social History Tobacco Use Types Packs/Day Years Used Date Smoking Tobacco: Never Assessed Comments Unknown Sex and Gender Information Value Date Recorded Sex Assigned at Not on file Legal Sex Female 2:44 AM TAPPER HELPER Gender Identity Not on file Sexual Orientation Not on file documented as of this encounter Plan of Treatment Not on file documented as of this encounter Visit Diagnoses Not on filedocumented in this encounter
--- OUTSIDE RECORDS SUMMARY | 2024-11-21 11:23 | XMS_ITS | Patient Health Record ---
Author Organization [facility] Address [address] [place], [place] [id number] Support Name Relationship Address Phone NIT[facility] Emergency Contact Unknown [phone] ANNIKA ALVARES Guarantor Unknown [phone] Reason For Referral No Information Plan Of Treatment No Information Insurance Providers Payer Name Payer Address Payer Phone Subscriber Number Group Number Insured Name Patient Relationship to Insured Coverage Start Date Coverage End Date [facility] [address] [place] [phone] [id number] ANNIKA ALVARES Self - patient is the insured
--- OUTSIDE RECORDS SUMMARY | 2024-11-21 11:23 | XMS_ITS | Encounter Summary ---
Author Organization [facility] Address [address] [place] [address] Care Team Providers Care Pi/Senior Research Associate Name Role Phone Unavailable Primary Care Provider Unavailabl e Encounter Details Date Type Department Care Team (Late st Contact Info) Description 02/05/2000 Outpatient Historical [facility] Pediatrics [place] [address] [facility] [address] [place] [address] Kashmir Gunn MD [address] [facility] [address] [place] [address] Social History Tobacco Use Types Packs/Day Years Used Date Smoking Tobacco: Never Assessed Comments Unknown Sex and Gender Information Value Date Recorded Sex Assigned at Not on file Legal Sex Female 2:44 AM LEGAL EXECUTIVE ASSISTANT Gender Identity Not on file Sexual Orientation Not on file documented as of this encounter Plan of Treatment Not on file documented as of this encounter Visit Diagnoses Not on filedocumented in this encounter
--- OUTSIDE RECORDS SUMMARY | 2024-11-21 11:23 | XMS_ITS | Encounter Summary ---
Author Organization [facility] Address [address] [place] [address] Care Team Providers Care Custom Studio Coordinator Name Role Phone Unavailable Primary Care Provider Unavailabl e Encounter Details Date Type Department Care Team (Late st Contact Info) Description 06/12/1999 Outpatient Historical [facility] Pediatrics [place] [address] [place] [address] Moises Guerrero Social History Tobacco Use Types Packs/Day Years Used Date Smoking Tobacco: Never Assessed Comments Unknown Sex and Gender Information Value Date Recorded Sex Assigned at Not on file Legal Sex Female 2:44 AM SENIOR APPLICATION PROGRAMMER Gender Identity Not on file Sexual Orientation Not on file documented as of this encounter Plan of Treatment Not on file documented as of this encounter Visit Diagnoses Not on filedocumented in this encounter
--- OUTSIDE RECORDS SUMMARY | 2024-11-21 11:23 | XMS_ITS | Encounter Summary ---
Author Organization [facility] Address [address] [place] [address] Care Team Providers Care Process Chemist Name Role Phone Unavailable Primary Care Provider Unavailabl e Encounter Details Date Type Department Care Team (Late st Contact Info) Description 05/31/1998 Outpatient Historical [facility] Pediatrics [address] [place] [address] Moises Guerrero Social History Tobacco Use Types Packs/Day Years Used Date Smoking Tobacco: Never Assessed Comments Unknown Sex and Gender Information Value Date Recorded Sex Assigned at Not on file Legal Sex Female 2:44 AM LEADER TIER Gender Identity Not on file Sexual Orientation Not on file documented as of this encounter Plan of Treatment Not on file documented as of this encounter Procedures Procedure Name Priority Date/Time Associated Diagnosis Comments CHG POLIOVIRUS VACCINE LIVE ORAL VFC 05/31/1998 12:00 AM LEADER TIER documented in this encounter Visit Diagnoses Not on filedocumented in this encounter
--- OUTSIDE RECORDS SUMMARY | 2024-11-21 11:23 | XMS_ITS | Encounter Summary ---
Author Organization [facility] Address [address] [place] [address] Care Team Providers Care Plastics And Composites Inspector Name Role Phone Unavailable Primary Care Provider Unavailabl e Encounter Details Date Type Department Care Team (Late st Contact Info) Description 05/31/1998 Outpatient Historical [facility] Pediatrics [address] [place] [address] Moises Guerrero Social History Tobacco Use Types Packs/Day Years Used Date Smoking Tobacco: Never Assessed Comments Unknown Sex and Gender Information Value Date Recorded Sex Assigned at Not on file Legal Sex Female 2:44 AM CHAIR FINISHER Gender Identity Not on file Sexual Orientation Not on file documented as of this encounter Plan of Treatment Not on file documented as of this encounter Procedures Procedure Name Priority Date/Time Associated Diagnosis Comments CHG HEPATITIS B VACCINE PED ADOL IM 3 DOSE VFC 05/31/1998 12:00 AM CHAIR FINISHER CHG DTAP VACCINE <7 YO IM VFC 05/31/1998 12:00 AM CHAIR FINISHER documented in this encounter Visit Diagnoses Not on filedocumented in this encounter
--- OUTSIDE RECORDS SUMMARY | 2024-11-21 11:23 | XMS_ITS | Encounter Summary ---
Author Organization [facility] Address [address] [place] [address] Care Team Providers Care Cotton Washer Name Role Phone Unavailable Primary Care Provider Unavailabl e Encounter Details Date Type Department Care Team (Late st Contact Info) Description 01/07/1998 Outpatient Historical [facility] Pediatrics [place] [address] [place] [address] Moises Guerrero Social History Tobacco Use Types Packs/Day Years Used Date Smoking Tobacco: Never Assessed Comments Unknown Sex and Gender Information Value Date Recorded Sex Assigned at Not on file Legal Sex Female 2:44 AM ACTION INSTALLER Gender Identity Not on file Sexual Orientation Not on file documented as of this encounter Plan of Treatment Not on file documented as of this encounter Visit Diagnoses Not on filedocumented in this encounter
--- OUTSIDE RECORDS SUMMARY | 2024-11-21 11:23 | XMS_ITS | Encounter Summary ---
Author Organization [facility] Address [address] [place] [address] Care Team Providers Care Liver Trimmer Name Role Phone Unavailable Primary Care Provider Unavailabl e Encounter Details Date Type Department Care Team (Late st Contact Info) Description 04/29/1999 Outpatient Historical [facility] Pediatrics [place] [address] [place] [address] Moises Guerrero Social History Tobacco Use Types Packs/Day Years Used Date Smoking Tobacco: Never Assessed Comments Unknown Sex and Gender Information Value Date Recorded Sex Assigned at Not on file Legal Sex Female 2:44 AM WORK FROM HOME Gender Identity Not on file Sexual Orientation Not on file documented as of this encounter Plan of Treatment Not on file documented as of this encounter Visit Diagnoses Not on filedocumented in this encounter
--- OUTSIDE RECORDS SUMMARY | 2024-11-21 11:23 | XMS_ITS | Encounter Summary ---
Author Organization [facility] Address [address] [place] [address] Care Team Providers Care Fast Food Cook Name Role Phone Unavailable Primary Care Provider Unavailabl e Encounter Details Date Type Department Care Team (Late st Contact Info) Description 05/29/1999 Outpatient Historical [facility] Pediatrics [place] [address] [place] [address] Moises Guerrero Social History Tobacco Use Types Packs/Day Years Used Date Smoking Tobacco: Never Assessed Comments Unknown Sex and Gender Information Value Date Recorded Sex Assigned at Not on file Legal Sex Female 2:44 AM ELECTRONIC GLUER Gender Identity Not on file Sexual Orientation Not on file documented as of this encounter Plan of Treatment Not on file documented as of this encounter Visit Diagnoses Not on filedocumented in this encounter
--- OUTSIDE RECORDS SUMMARY | 2024-11-21 11:23 | XMS_ITS | Encounter Summary ---
Author Organization [facility] Address [address] [place] [address] Care Team Providers Care Hard Candy Spinner Name Role Phone Unavailable Primary Care Provider Unavailabl e Encounter Details Date Type Department Care Team (Late st Contact Info) Description 06/06/2001 Outpatient Historical [facility] Pediatrics [place] [address] [facility] [address] [place] [address] Kashmir Gunn MD [address] [facility] [address] [place] [address] Social History Tobacco Use Types Packs/Day Years Used Date Smoking Tobacco: Never Assessed Comments Unknown Sex and Gender Information Value Date Recorded Sex Assigned at Not on file Legal Sex Female 2:44 AM SPINNING MACHINE TENDER Gender Identity Not on file Sexual Orientation Not on file documented as of this encounter Plan of Treatment Not on file documented as of this encounter Visit Diagnoses Not on filedocumented in this encounter
--- OUTSIDE RECORDS SUMMARY | 2024-11-21 11:23 | XMS_ITS | Encounter Summary ---
Author Organization [facility] Address [address] [place] [address] Care Team Providers Care Metal Furniture Glazier Name Role Phone Unavailable Primary Care Provider Unavailabl e Encounter Details Date Type Department Care Team (Late st Contact Info) Description 11/28/1998 Outpatient Historical [facility] Pediatrics [place] [address] [place] [address] Moises Guerrero Social History Tobacco Use Types Packs/Day Years Used Date Smoking Tobacco: Never Assessed Comments Unknown Sex and Gender Information Value Date Recorded Sex Assigned at Not on file Legal Sex Female 2:44 AM GAS STATION SUPERVISOR Gender Identity Not on file Sexual Orientation Not on file documented as of this encounter Plan of Treatment Not on file documented as of this encounter Visit Diagnoses Not on filedocumented in this encounter
--- OUTSIDE RECORDS SUMMARY | 2024-11-21 11:23 | XMS_ITS | Encounter Summary ---
Author Organization [facility] Address [address] [place] [address] Care Team Providers Care Hyperbaric Tech Name Role Phone Unavailable Primary Care Provider Unavailabl e Encounter Details Date Type Department Care Team (Late st Contact Info) Description 03/22/2002 Outpatient Historical [facility] Pediatrics [address] [place] [address] Murtaza Mcnulty MD [address] [place] [address] Social History Tobacco Use Types Packs/Day Years Used Date Smoking Tobacco: Never Assessed Comments Unknown Sex and Gender Information Value Date Recorded Sex Assigned at Not on file Legal Sex Female 2:44 AM FOREST ECOLOGY PROFESSOR Gender Identity Not on file Sexual Orientation Not on file documented as of this encounter Plan of Treatment Not on file documented as of this encounter Visit Diagnoses Not on filedocumented in this encounter
--- OUTSIDE RECORDS SUMMARY | 2024-11-21 11:23 | XMS_ITS | Encounter Summary ---
Author Organization [facility] Address [address] [place] [address] Care Team Providers Care Music Promoter Name Role Phone Unavailable Primary Care Provider Unavailabl e Encounter Details Date Type Department Care Team (Late st Contact Info) Description 06/04/2003 Outpatient Historical [facility] Pediatrics [address] [place] [address] Murtaza Mcnulty MD [address] [place] [address] Social History Tobacco Use Types Packs/Day Years Used Date Smoking Tobacco: Never Assessed Comments Unknown Sex and Gender Information Value Date Recorded Sex Assigned at Not on file Legal Sex Female 2:44 AM LINTER TENDER Gender Identity Not on file Sexual Orientation Not on file documented as of this encounter Plan of Treatment Not on file documented as of this encounter Visit Diagnoses Not on filedocumented in this encounter
--- OUTSIDE RECORDS SUMMARY | 2024-11-21 11:23 | XMS_ITS | Encounter Summary ---
Author Organization [facility] Address [address] [place] [address] Care Team Providers Care Archivist Political History Name Role Phone Unavailable Primary Care Provider Unavailabl e Encounter Details Date Type Department Care Team (Late st Contact Info) Description 07/10/1998 Outpatient Historical [facility] Pediatrics [place] [address] [place] [address] Moises Guerrero Social History Tobacco Use Types Packs/Day Years Used Date Smoking Tobacco: Never Assessed Comments Unknown Sex and Gender Information Value Date Recorded Sex Assigned at Not on file Legal Sex Female 2:44 AM PSYCHIATRIC ARNP Gender Identity Not on file Sexual Orientation Not on file documented as of this encounter Plan of Treatment Not on file documented as of this encounter Visit Diagnoses Not on filedocumented in this encounter
--- OUTSIDE RECORDS SUMMARY | 2024-11-21 11:23 | XMS_ITS | Encounter Summary ---
Author Organization [facility] Address [address] [address] [place] [address] Care Team Providers Care Product Communications Manager Name Role Phone Unavailable Primary Care Provider Unavailabl e Encounter Details Date Type Department Care Team (Late st Contact Info) Description 03/05/2001 Outpatient Historical [facility] Pediatrics [place] [address] [facility] [address] [place] [address] Luis Conklin MD [address] [place] [address] Social History Tobacco Use Types Packs/Day Years Used Date Smoking Tobacco: Never Assessed Comments Unknown Sex and Gender Information Value Date Recorded Sex Assigned at Not on file Legal Sex Female 2:44 AM LEATHER SCRAPER Gender Identity Not on file Sexual Orientation Not on file documented as of this encounter Plan of Treatment Not on file documented as of this encounter Visit Diagnoses Not on filedocumented in this encounter
--- OUTSIDE RECORDS SUMMARY | 2024-11-21 11:23 | XMS_ITS | Encounter Summary ---
Author Organization [facility] Address [address] [place] [address] Care Team Providers Care Commercial Cleaner Name Role Phone Unavailable Primary Care Provider Unavailabl e Encounter Details Date Type Department Care Team (Late st Contact Info) Description 09/06/1998 Outpatient Historical [facility] Pediatrics [place] [address] [place] [address] Moises Guerrero Social History Tobacco Use Types Packs/Day Years Used Date Smoking Tobacco: Never Assessed Comments Unknown Sex and Gender Information Value Date Recorded Sex Assigned at Not on file Legal Sex Female 2:44 AM COMPENSATION PROGRAMS MANAGER Gender Identity Not on file Sexual Orientation Not on file documented as of this encounter Plan of Treatment Not on file documented as of this encounter Visit Diagnoses Not on filedocumented in this encounter
--- OUTSIDE RECORDS SUMMARY | 2024-11-21 11:23 | XMS_ITS | Encounter Summary ---
Author Organization [facility] Address [address] [place] [address] Care Team Providers Care Non Licensed Operator Name Role Phone Unavailable Primary Care Provider Unavailabl e Encounter Details Date Type Department Care Team (Late st Contact Info) Description 11/15/2003 Outpatient Historical [facility] Pediatrics [place] [address] [facility] [address] [place] [address] Kashmir Gunn MD [address] [place] [address] Social History Tobacco Use Types Packs/Day Years Used Date Smoking Tobacco: Never Assessed Comments Unknown Sex and Gender Information Value Date Recorded Sex Assigned at Not on file Legal Sex Female 2:44 AM SENIOR PHYSICIAN Gender Identity Not on file Sexual Orientation Not on file documented as of this encounter Plan of Treatment Not on file documented as of this encounter Procedures Procedure Name Priority Date/Time Associated Diagnosis Comments CHG POLIOVIRUS IPV [facility] 4 12:00 AM CDT CHG MMR VACCINE SQ [facility] 4 12:00 AM CDT CHG DTAP VACCINE <7 YO IM [facility] 11/15/2003 12:00 AM CDT documented in this encounter Visit Diagnoses Not on filedocumented in this encounter
--- OUTSIDE RECORDS SUMMARY | 2024-11-21 11:23 | XMS_ITS | Encounter Summary ---
Author Organization [facility] Address [address] [place] [address] Care Team Providers Care Haulage Boss Name Role Phone Unavailable Primary Care Provider Unavailabl e Encounter Details Date Type Department Care Team (Late st Contact Info) Description 02/06/2004 Outpatient Historical [facility] Pediatrics [address] [place] [address] Murtaza Mcnulty MD [address] [place] [address] Social History Tobacco Use Types Packs/Day Years Used Date Smoking Tobacco: Never Assessed Comments Unknown Sex and Gender Information Value Date Recorded Sex Assigned at Not on file Legal Sex Female 2:44 AM OPERATIONS PROGRAM MANAGER Gender Identity Not on file Sexual Orientation Not on file documented as of this encounter Plan of Treatment Not on file documented as of this encounter Visit Diagnoses Not on filedocumented in this encounter
--- OUTSIDE RECORDS SUMMARY | 2024-11-21 11:23 | XMS_ITS | Encounter Summary ---
Author Organization [facility] Address [address] [place] [address] Care Team Providers Care Farmworker Dairy Name Role Phone Unavailable Primary Care Provider Unavailabl e Encounter Details Date Type Department Care Team (Late st Contact Info) Description 08/23/1998 Outpatient Historical [facility] Pediatrics [place] [address] [place] [address] Moises Guerrero Social History Tobacco Use Types Packs/Day Years Used Date Smoking Tobacco: Never Assessed Comments Unknown Sex and Gender Information Value Date Recorded Sex Assigned at Not on file Legal Sex Female 2:44 AM DISTILLERY 

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
--- OUTSIDE RECORDS SUMMARY | 2024-11-21 11:23 | XMS_ITS | Encounter Summary ---
Author Organization [facility] Address [address] [place] [address] Care Team Providers Care Income Tax Administrator Name Role Phone Unavailable Primary Care Provider Unavailabl e Encounter Details Date Type Department Care Team (Late st Contact Info) Description 05/28/1998 Outpatient Historical [facility] Pediatrics [place] [address] [place] [address] Moises Guerrero Social History Tobacco Use Types Packs/Day Years Used Date Smoking Tobacco: Never Assessed Comments Unknown Sex and Gender Information Value Date Recorded Sex Assigned at Not on file Legal Sex Female 2:44 AM SEED CLEANING MACHINE 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
--- OUTSIDE RECORDS SUMMARY | 2024-11-21 11:23 | XMS_ITS | Encounter Summary ---
Author Organization [facility] Address [address] [place] [address] Care Team Providers Care Valve Tester Name Role Phone Unavailable Primary Care Provider Unavailabl e Encounter Details Date Type Department Care Team (Late st Contact Info) Description 08/23/1998 Outpatient Historical [facility] Pediatrics [place] [address] [place] [address] Moises Guerrero Social History Tobacco Use Types Packs/Day Years Used Date Smoking Tobacco: Never Assessed Comments Unknown Sex and Gender Information Value Date Recorded Sex Assigned at Not on file Legal Sex Female 2:44 AM ETL ARCHITECT Gender Identity Not on file Sexual Orientation Not on file documented as of this encounter Plan of Treatment Not on file documented as of this encounter Visit Diagnoses Not on filedocumented in this encounter
--- OUTSIDE RECORDS SUMMARY | 2024-11-21 11:23 | XMS_ITS | Encounter Summary ---
Author Organization [facility] Address [address] [place] [address] Care Team Providers Care Card Grinder Name Role Phone Unavailable Primary Care Provider Unavailabl e Encounter Details Date Type Department Care Team (Late st Contact Info) Description 01/06/1999 Outpatient Historical [facility] Pediatrics [place] [address] [place] [address] Moises Guerrero Social History Tobacco Use Types Packs/Day Years Used Date Smoking Tobacco: Never Assessed Comments Unknown Sex and Gender Information Value Date Recorded Sex Assigned at Not on file Legal Sex Female 2:44 AM MEDICAL PHYSICS RESEARCHER Gender Identity Not on file Sexual Orientation Not on file documented as of this encounter Plan of Treatment Not on file documented as of this encounter Visit Diagnoses Not on filedocumented in this encounter
--- OUTSIDE RECORDS SUMMARY | 2024-11-21 11:23 | XMS_ITS | Encounter Summary ---
Author Organization [facility] Address [address] [place] [address] Care Team Providers Care Assistant Field Hockey Coach Name Role Phone Unavailable Primary Care Provider Unavailabl e Encounter Details Date Type Department Care Team (Late st Contact Info) Description 04/03/2000 Outpatient Historical [facility] Pediatrics [place] [address] [facility] [address] [place] [address] Luis Conklin MD [address] [place] [address] Social History Tobacco Use Types Packs/Day Years Used Date Smoking Tobacco: Never Assessed Comments Unknown Sex and Gender Information Value Date Recorded Sex Assigned at Not on file Legal Sex Female 2:44 AM CYBER FORENSIC SPECIALIST Gender Identity Not on file Sexual Orientation Not on file documented as of this encounter Plan of Treatment Not on file documented as of this encounter Visit Diagnoses Not on filedocumented in this encounter
--- OUTSIDE RECORDS SUMMARY | 2024-11-21 11:23 | XMS_ITS | Encounter Summary ---
Author Organization [facility] Address [address] [place] [address] Care Team Providers Care Sales Designer Name Role Phone Unavailable Primary Care Provider Unavailabl e Encounter Details Date Type Department Care Team (Late st Contact Info) Description 12/03/1998 Outpatient Historical [facility] Pediatrics [place] [address] [place] [address] Moises Guerrero Social History Tobacco Use Types Packs/Day Years Used Date Smoking Tobacco: Never Assessed Comments Unknown Sex and Gender Information Value Date Recorded Sex Assigned at Not on file Legal Sex Female 2:44 AM PRECAST 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
--- OUTSIDE RECORDS SUMMARY | 2024-11-21 11:23 | XMS_ITS | Encounter Summary ---
Author Organization [facility] Address [address] [place] [address] Care Team Providers Care Can Handler Name Role Phone Unavailable Primary Care Provider Unavailabl e Encounter Details Date Type Department Care Team (Late st Contact Info) Description 02/13/[address] [facility] Pediatrics [address] [place] [address] Murtaza Mcnulty MD [address] [place] [address] Social History Tobacco Use Types Packs/Day Years Used Date Smoking Tobacco: Never Assessed Comments Unknown Sex and Gender Information Value Date Recorded Sex Assigned at Not on file Legal Sex Female 2:44 AM MED SURG RN Gender Identity Not on file Sexual Orientation Not on file documented as of this encounter Plan of Treatment Not on file documented as of this encounter Visit Diagnoses Not on filedocumented in this encounter
--- OUTSIDE RECORDS SUMMARY | 2024-11-21 11:23 | XMS_ITS | Encounter Summary ---
Author Organization [facility] Address [address] [place] [address] Care Team Providers Care Bacteriology Professor Name Role Phone Unavailable Primary Care Provider Unavailabl e Encounter Details Date Type Department Care Team (Late st Contact Info) Description 08/15/1999 Outpatient Historical [facility] Pediatrics [place] [address] [place] [address] Moises Guerrero Social History Tobacco Use Types Packs/Day Years Used Date Smoking Tobacco: Never Assessed Comments Unknown Sex and Gender Information Value Date Recorded Sex Assigned at Not on file Legal Sex Female 2:44 AM DIGITAL FORENSIC ANALYST Gender Identity Not on file Sexual Orientation Not on file documented as of this encounter Plan of Treatment Not on file documented as of this encounter Visit Diagnoses Not on filedocumented in this encounter
--- OUTSIDE RECORDS SUMMARY | 2024-11-21 11:23 | XMS_ITS | Encounter Summary ---
Author Organization [facility] Address [address] [place] [address] Care Team Providers Care Septic Tank Servicer Name Role Phone Unavailable Primary Care Provider Unavailabl e Encounter Details Date Type Department Care Team (Late st Contact Info) Description 08/25/2001 Outpatient Historical [facility] Pediatrics [place] [address] [facility] [address] [place] [address] Kashmir Gunn MD [address] [facility] [address] [place] [address] Social History Tobacco Use Types Packs/Day Years Used Date Smoking Tobacco: Never Assessed Comments Unknown Sex and Gender Information Value Date Recorded Sex Assigned at Not on file Legal Sex Female 2:44 AM WATER VESSEL CAPTAIN Gender Identity Not on file Sexual Orientation Not on file documented as of this encounter Plan of Treatment Not on file documented as of this encounter Visit Diagnoses Not on filedocumented in this encounter
--- OUTSIDE RECORDS SUMMARY | 2024-11-21 11:23 | XMS_ITS | Encounter Summary ---
Author Organization [facility] Address [address] [place] [address] Care Team Providers Care Data Control Assistant Name Role Phone Unavailable Primary Care Provider Unavailabl e Encounter Details Date Type Department Care Team (Late st Contact Info) Description 04/09/1998 Outpatient Historical [facility] Pediatrics [place] [address] [place] [address] Moises Guerrero Social History Tobacco Use Types Packs/Day Years Used Date Smoking Tobacco: Never Assessed Comments Unknown Sex and Gender Information Value Date Recorded Sex Assigned at Not on file Legal Sex Female 2:44 AM BUTTONHOLE MAKER HAND Gender Identity Not on file Sexual Orientation Not on file documented as of this encounter Plan of Treatment Not on file documented as of this encounter Visit Diagnoses Not on filedocumented in this encounter
--- OUTSIDE RECORDS SUMMARY | 2024-11-21 11:23 | XMS_ITS | Encounter Summary ---
Author Organization [facility] Address [address] [place] [address] Care Team Providers Care Bobbin Coil Winder Name Role Phone Unavailable Primary Care Provider Unavailabl e Encounter Details Date Type Department Care Team (Late st Contact Info) Description 11/28/1998 Outpatient Historical [facility] Pediatrics [place] [address] [place] [address] Moises Guerrero Social History Tobacco Use Types Packs/Day Years Used Date Smoking Tobacco: Never Assessed Comments Unknown Sex and Gender Information Value Date Recorded Sex Assigned at Not on file Legal Sex Female 2:44 AM PORK CUTLET 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
--- OUTSIDE RECORDS SUMMARY | 2024-11-21 11:23 | XMS_ITS | Encounter Summary ---
Author Organization [facility] Address [address] [place] [address] Care Team Providers Care Pharmacy Services Representative Name Role Phone Unavailable Primary Care Provider Unavailabl e Encounter Details Date Type Department Care Team (Late st Contact Info) Description 08/11/1999 Outpatient Historical [facility] Pediatrics [place] [address] [place] [address] Moises Guerrero Social History Tobacco Use Types Packs/Day Years Used Date Smoking Tobacco: Never Assessed Comments Unknown Sex and Gender Information Value Date Recorded Sex Assigned at Not on file Legal Sex Female 2:44 AM KERSEY DEPARTMENT SUPERVISOR Gender Identity Not on file Sexual Orientation Not on file documented as of this encounter Plan of Treatment Not on file documented as of this encounter Visit Diagnoses Not on filedocumented in this encounter
--- OUTSIDE RECORDS SUMMARY | 2024-11-21 11:23 | XMS_ITS | Encounter Summary ---
Author Organization [facility] Address [address] [place] [address] Care Team Providers Care Drywall Taper Helper Name Role Phone Unavailable Primary Care Provider Unavailabl e Encounter Details Date Type Department Care Team (Late st Contact Info) Description 05/06/[address] [facility] Pediatrics [address] [place] [address] Murtaza Mcnulty MD [address] [place] [address] Social History Tobacco Use Types Packs/Day Years Used Date Smoking Tobacco: Never Assessed Comments Unknown Sex and Gender Information Value Date Recorded Sex Assigned at Not on file Legal Sex Female 2:44 AM WHEELCHAIR VAN DRIVER Gender Identity Not on file Sexual Orientation Not on file documented as of this encounter Plan of Treatment Not on file documented as of this encounter Visit Diagnoses Not on filedocumented in this encounter
--- OUTSIDE RECORDS SUMMARY | 2024-11-21 11:23 | XMS_ITS | Encounter Summary ---
Author Organization [facility] Address [address] [place] [address] Care Team Providers Care Jeep Driver Name Role Phone Unavailable Primary Care Provider Unavailabl e Encounter Details Date Type Department Care Team (Late st Contact Info) Description 07/25/1999 Outpatient Historical [facility] Pediatrics [place] [address] [place] [address] Moises Guerrero Social History Tobacco Use Types Packs/Day Years Used Date Smoking Tobacco: Never Assessed Comments Unknown Sex and Gender Information Value Date Recorded Sex Assigned at Not on file Legal Sex Female 2:44 AM PORTABLE CANTEEN 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
--- OUTSIDE RECORDS SUMMARY | 2024-11-21 11:23 | XMS_ITS | Encounter Summary ---
Author Organization [facility] Address [address] [place] [address] Care Team Providers Care Shore Working Supervisor Name Role Phone Unavailable Primary Care Provider Unavailabl e Encounter Details Date Type Department Care Team (Late st Contact Info) Description 01/09/2004 Outpatient Historical [facility] Pediatrics [address] [place] [address] Murtaza Mcnulty MD [address] [place] [address] Social History Tobacco Use Types Packs/Day Years Used Date Smoking Tobacco: Never Assessed Comments Unknown Sex and Gender Information Value Date Recorded Sex Assigned at Not on file Legal Sex Female 2:44 AM DOPE DRY HOUSE 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
--- OUTSIDE RECORDS SUMMARY | 2024-11-21 11:23 | XMS_ITS | Clinical Summary ---
Author Organization [facility] Address [address] [place] [address] Phone Care Team Providers Care Email Campaign Manager Name Role Phone Varun Chavez MD [...] making a change Department associated with goal: [facility] Steps to [...] PM CDT) Yes Sandra Rich, [facility] Insurance MEDICAID [employer] Care Teams Email Campaign Manager Relationship Specialty Start Date End Date Varun Chavez MD PCP - General Internal Medicine 11/13/21
--- OUTSIDE RECORDS SUMMARY | 2024-11-21 11:23 | XMS_ITS | Encounter Summary ---
Author Organization [facility] Address [address] [place] [address] Care Team Providers Care Dial Lathe Operator Name Role Phone Unavailable Primary Care Provider Unavailabl e Encounter Details Date Type Department Care Team (Late st Contact Info) Description 12/17/[address] [facility] Pediatrics [place] [address] [place] [address] Moises Guerrero Social History Tobacco Use Types Packs/Day Years Used Date Smoking Tobacco: Never Assessed Comments Unknown Sex and Gender Information Value Date Recorded Sex Assigned at Not on file Legal Sex Female 2:44 AM FELT CUTTER Gender Identity Not on file Sexual Orientation Not on file documented as of this encounter Plan of Treatment Not on file documented as of this encounter Visit Diagnoses Not on filedocumented in this encounter
--- OUTSIDE RECORDS SUMMARY | 2024-11-21 11:23 | XMS_ITS | Encounter Summary ---
Author Organization [facility] Address [address] [place] [address] Care Team Providers Care Poultry Slaughterer Name Role Phone Unavailable Primary Care Provider Unavailabl e Encounter Details Date Type Department Care Team (Late st Contact Info) Description 01/05/2000 Outpatient Historical [facility] Pediatrics [place] [address] [facility] [address] [place] [address] Kashmir [place] MD [address] [facility] [address] [place] [address] Social History Tobacco Use Types Packs/Day Years Used Date Smoking Tobacco: Never Assessed Comments Unknown Sex and Gender Information Value Date Recorded Sex Assigned at Not on file Legal Sex Female 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
--- OUTSIDE RECORDS SUMMARY | 2024-11-21 11:23 | XMS_ITS | Clinical Summary ---
Author Organization [facility] Address [address] [place] [address] Phone Care Team Providers Care Fire Dispatcher Name Role Phone Unavailable Primary Care [...] on file Legal Sex Female 2:44 AM HEAT CURER Gender Identity Not on file Sexual Orientation Not on file Occupation Industry Job Start Date Job End Date Not on file Not on file Not on file Not on file Last Filed Vital Signs Vital Sign Reading Time Taken Comments Blood Pressure 110/80 01/28/2016 11:54 AM HEAT CURER Pulse 101 01/28/2016 11:54 AM HEAT CURER Temperature 37.1 C (98.7 F) 01/28/2016 11:54 AM HEAT CURER Respiratory Rate 18 01/28/2016 11:54 AM HEAT CURER Oxygen Saturation 97% 01/28/2016 11:54 AM HEAT CURER Inhaled Oxygen Concentration - - Weight 61.7 kg (136 lb) 01/28/2016 11:54 AM HEAT CURER Height 160 cm (5' 3) 01/28/2016 11:54 AM HEAT CURER Body Mass Index 24.09 01/28/2016 11:54 AM HEAT CURER Plan of Treatment Health Maintenance Due Date Last Done Comments HPV VACCINES (1 - 3-dose series) 2012 DTAP/TDAP/TD VACCINES (1 - Tdap) 2016 HEPATITIS B VACCINES (1 of 3 - 19+ 3-dose series) 10/31 CERVICAL CANCER SCREENING 2018 HPV/Cotest (21-29) 2018 PAP SMEAR 2018 INFLUENZA VACCINE (#1) 2024
--- OUTSIDE RECORDS SUMMARY | 2024-11-21 11:23 | XMS_ITS | Encounter Summary ---
Author Organization [facility] Address [address] [place] [address] Care Team Providers Care Accounting Software Specialist Name Role Phone Unavailable Primary Care Provider Unavailabl e Encounter Details Date Type Department Care Team (Late st Contact Info) Description 03/26/2000 Outpatient Historical [facility] [place] [address] [facility] [address] [place] [address] Kashmir Gunn MD [address] [facility] [address] [place] [address] Social History Tobacco Use Types Packs/Day Years Used Date Smoking Tobacco: Never Assessed Comments Unknown Sex and Gender Information Value Date Recorded Sex Assigned at Not on file Legal Sex Female 2:44 AM ASSOCIATE DENTIST Gender Identity Not on file Sexual Orientation Not on file documented as of this encounter Plan of Treatment Not on file documented as of this encounter Visit Diagnoses Not on filedocumented in this encounter
--- OUTSIDE RECORDS SUMMARY | 2024-11-21 11:23 | XMS_ITS | Encounter Summary ---
Author Organization [facility] Address [address] [place] [address] Care Team Providers Care Medical Equipment Sales Name Role Phone Unavailable Primary Care Provider Unavailabl e Encounter Details Date Type Department Care Team (Late st Contact Info) Description 07/09/2004 Outpatient Historical [facility] [address] [place] [address] Murtaza Mcnulty MD [address] [place] [address] Social History Tobacco Use Types Packs/Day Years Used Date Smoking Tobacco: Never Assessed Comments Unknown Sex and Gender Information Value Date Recorded Sex Assigned at Not on file Legal Sex Female 2:44 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
--- OUTSIDE RECORDS SUMMARY | 2024-11-21 11:23 | XMS_ITS | Encounter Summary ---
Author Organization [facility] Address [address] [place] [address] Care Team Providers Care Emergency Care Tech Name Role Phone Unavailable Primary Care Provider Unavailabl e Encounter Details Date Type Department Care Team (Late st Contact Info) Description 09/21/2000 Outpatient Historical [facility] [place] [address] [facility] [address] [place] [address] Edgar [place] MD [address] [facility] [facility] [address] [place] [address] Social History Tobacco Use Types Packs/Day Years Used Date Smoking Tobacco: Never Assessed Comments Unknown Sex and Gender Information Value Date Recorded Sex Assigned at Not on file Legal Sex Female 2:44 AM TERRA COTTA MOLD 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
--- OUTSIDE RECORDS SUMMARY | 2024-11-21 11:23 | XMS_ITS | Encounter Summary ---
Author Organization [facility] Address [address] [place] [address] Care Team Providers Care Occupational Therapy Department Chair Name Role Phone Unavailable Primary Care Provider Unavailabl e Encounter Details Date Type Department Care Team (Late st Contact Info) Description 10/25/[address] [facility] [place] [address] [place] [address] Moises Guerrero Social History Tobacco Use Types Packs/Day Years Used Date Smoking Tobacco: Never Assessed Comments Unknown Sex and Gender Information Value Date Recorded Sex Assigned at Not on file Legal Sex Female 2:44 AM ELECTRICIAN BUS Gender Identity Not on file Sexual Orientation Not on file documented as of this encounter Plan of Treatment Not on file documented as of this encounter Visit Diagnoses Not on filedocumented in this encounter
--- OUTSIDE RECORDS SUMMARY | 2024-11-21 11:23 | XMS_ITS | Encounter Summary ---
Author Organization [facility] Address [address] [place] [address] Care Team Providers Care Primary Care Nurse Name Role Phone Unavailable Primary Care Provider Unavailabl e Encounter Details Date Type Department Care Team (Late st Contact Info) Description 06/01/2000 Outpatient Historical [facility] [place] [address] [facility] [address] [place] [address] Kashmir Gunn MD [address] [facility] [address] [place] [address] Social History Tobacco Use Types Packs/Day Years Used Date Smoking Tobacco: Never Assessed Comments Unknown Sex and Gender Information Value Date Recorded Sex Assigned at Not on file Legal Sex Female 2:44 AM LINEN KEEPER Gender Identity Not on file Sexual Orientation Not on file documented as of this encounter Plan of Treatment Not on file documented as of this encounter Visit Diagnoses Not on filedocumented in this encounter
--- OUTSIDE RECORDS SUMMARY | 2024-11-21 11:23 | XMS_ITS | Encounter Summary ---
Author Organization [facility] Address [address] [place] [address] Care Team Providers Care Dry Cleaner Apprentice Name Role Phone Unavailable Primary Care Provider Unavailabl e Encounter Details Date Type Department Care Team (Late st Contact Info) Description 11/04/2004 Outpatient Historical [facility] Pediatrics [address] [place] [address] Murtaza Mcnulty MD [address] [place] [address] Social History Tobacco Use Types Packs/Day Years Used Date Smoking Tobacco: Never Assessed Comments Unknown Sex and Gender Information Value Date Recorded Sex Assigned at Not on file Legal Sex Female 2:44 AM STAPLER COIL UNIT Gender Identity Not on file Sexual Orientation Not on file documented as of this encounter Plan of Treatment Not on file documented as of this encounter Visit Diagnoses Not on filedocumented in this encounter
[2024-11-21 12:01] LABS: Hematocrit 33.3 % (37.0-47.0); Hemoglobin 11.3 g/dL (12.0-15.0); Mean Corpuscular HGB Conc 33.9 g/dl (32-36); Mean Corpuscular Hemoglobin 29.7 pg (26-34); Mean Corpuscular Volume 87.4 fl (80-100); Platelet Count Result 238 k/mm3 (150-375); Red Blood Count 3.81 M/mm3 (4.2-5.4); White Blood Count 14.9 K/mm3 (4.5-10.0)
[2024-11-21 12:29] LABS: Glucose 1 Hour PP 50gm Dose 136 mg/dL
[2024-11-21 12:48] LABS: Syphilis IgG/IgM Antibody Non-Reactive (Nonreactive)
[2024-11-21 13:02] LABS: HIV 1/2 Ab P24 Ag Result Negative (Negative)
== END 2024-11-21 10:34 | disposition home or self-care (01) ==
LOC: ANHLAB 10:38
PROVIDERS: PCP Emergency Medicine; Visit Provider Obstetrics & Gynecology Gynecology
DX: Z34.93 Encounter for supervision of normal pregnancy, unspecified, third trimester (principal); R79.9 Abnormal finding of blood chemistry, unspecified
CPT/HCPCS: 36415; 82306; 82947; 85027; 86593; 86703; G0432

== ENCOUNTER 2024-11-30 07:05 | Outpatient (CLI) | payer OTHER, SELFPAY ==
[2024-11-30 09:08] LABS: Glucose 1 Hour 188 mg/dL
[2024-11-30 10:10] LABS: Glucose 2 Hour 151 mg/dL
[2024-11-30 11:15] LABS: Glucose 3 Hour 128 mg/dL
== END 2024-11-30 07:06 | disposition home or self-care (01) ==
LOC: ANHLAB 07:07
PROVIDERS: PCP Emergency Medicine; Visit Provider Obstetrics & Gynecology Gynecology
DX: O99.810 Abnormal glucose complicating pregnancy (principal); Z3A.00 Weeks of gestation of pregnancy not specified
CPT/HCPCS: 36415; 82951; 82952

== ENCOUNTER 2024-11-30 08:20 | Observation (INO) | payer OTHER, SELFPAY ==
[2024-11-30] VITALS (34 sets, daily range): BP systolic 110–121; BP diastolic 64–73; PULSE 97–116; O2SAT 97–100; BMI 32.9
--- OUTSIDE RECORDS SUMMARY | 2024-11-30 08:40 | XMS_ITS | Encounter Summary ---
Author Organization [facility] Address 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
--- OUTSIDE RECORDS SUMMARY | 2024-11-30 08:40 | XMS_ITS | Encounter Summary ---
Author Organization [facility] Address [address] [place] [address] Care Team Providers Care Food Service Counter Clerk Name Role Phone Unavailable Primary Care Provider Unavailabl e Encounter Details Date Type Department Care Team (Late st Contact Info) Description 12/17/1998 Outpatient Historical [facility] Pediatrics [place] [address] [place] [address] Moises Guerrero Social History Tobacco Use Types Packs/Day Years Used Date Smoking Tobacco: Never Assessed Comments Unknown Sex and Gender Information Value Date Recorded Sex Assigned at Not on file Legal Sex Female 2:44 AM REHAB DEPARTMENT MANAGER Gender Identity Not on file Sexual Orientation Not on file documented as of this encounter Plan of Treatment Not on file documented as of this encounter Visit Diagnoses Not on filedocumented in this encounter
--- OUTSIDE RECORDS SUMMARY | 2024-11-30 08:40 | XMS_ITS | Encounter Summary ---
Author Organization [facility] Address [address] [place] [address] Care Team Providers Care Evidence Specialist Name Role Phone Unavailable Primary Care Provider Unavailabl e Encounter Details Date Type Department Care Team (Late st Contact Info) Description 10/25/1998 Outpatient Historical [facility] Pediatrics [place] [address] [place] [address] Moises Guerrero Social History Tobacco Use Types Packs/Day Years Used Date Smoking Tobacco: Never Assessed Comments Unknown Sex and Gender Information Value Date Recorded Sex Assigned at Not on file Legal Sex Female 2:44 AM ASSEMBLER METAL 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
--- OUTSIDE RECORDS SUMMARY | 2024-11-30 08:40 | XMS_ITS | Clinical Summary ---
Author Organization [facility] Address [address] [place] [address] Phone Care Team Providers Care Research Professor Name Role Phone Varun Chavez MD Primary [...] track(2021 2:25 PM CDT) Yes Sandra Rich, [facility] Insurance MEDICAID [employer] Care Teams Research Professor Relationship Specialty Start Date End Date Varun Chavez MD PCP - General Internal Medicine 11/13/21
--- OUTSIDE RECORDS SUMMARY | 2024-11-30 08:40 | XMS_ITS | Encounter Summary ---
Author Organization [facility] Address [address] [place] [address] Care Team Providers Care Diagnostic Imaging Manager Name Role Phone Unavailable Primary Care Provider Unavailabl e Encounter Details Date Type Department Care Team (Late st Contact Info) Description 03/26/2000 Outpatient Historical [facility]s [place] [address] [facility] [address] [place] [address] Kashmir Gunn MD [address] [address] [place] [address] Social History Tobacco Use Types Packs/Day Years Used Date Smoking Tobacco: Never Assessed Comments Unknown Sex and Gender Information Value Date Recorded Sex Assigned at Not on file Legal Sex Female 2:44 AM ASSISTANT CASINO SHIFT MANAGER Gender Identity Not on file Sexual Orientation Not on file documented as of this encounter Plan of Treatment Not on file documented as of this encounter Visit Diagnoses Not on filedocumented in this encounter
--- OUTSIDE RECORDS SUMMARY | 2024-11-30 08:40 | XMS_ITS | Encounter Summary ---
Author Organization [facility] Address [address] [place] [address] Care Team Providers Care Customer Manager Name Role Phone Unavailable Primary Care Provider Unavailabl e Encounter Details Date Type Department Care Team (Late st Contact Info) Description 06/01/2000 Outpatient Historical [facility] [place] [address] [facility] [address] [place] [address] Kashmir Gunn MD [address] [facility] [address] [place] [address] Social History Tobacco Use Types Packs/Day Years Used Date Smoking Tobacco: Never Assessed Comments Unknown Sex and Gender Information Value Date Recorded Sex Assigned at Not on file Legal Sex Female 2:44 AM STRAIGHT KNIFE MACHINE CUTTER Gender Identity Not on file Sexual Orientation Not on file documented as of this encounter Plan of Treatment Not on file documented as of this encounter Visit Diagnoses Not on filedocumented in this encounter
--- OUTSIDE RECORDS SUMMARY | 2024-11-30 08:40 | XMS_ITS | Encounter Summary ---
Author Organization [facility] Address [address] [place] [address] Care Team Providers Care Liquid Center Assembler Name Role Phone Unavailable Primary Care Provider Unavailabl e Encounter Details Date Type Department Care Team (Late st Contact Info) Description 11/28/1998 Outpatient Historical [facility] Pediatric[facility] [place] [address] [place] [address] Moises Guerrero Social History Tobacco Use Types Packs/Day Years Used Date Smoking Tobacco: Never Assessed Comments Unknown Sex and Gender Information Value Date Recorded Sex Assigned at Not on file Legal Sex Female 2:44 AM AUTOMOBILE SERVICE WRITER Gender Identity Not on file Sexual Orientation Not on file documented as of this encounter Plan of Treatment Not on file documented as of this encounter Visit Diagnoses Not on filedocumented in this encounter
--- OUTSIDE RECORDS SUMMARY | 2024-11-30 08:40 | XMS_ITS | Data Portability ---
Author Organization [place] [facility] [employer], Main Office Address [address] [place] [address] Assessment Encounter Date Assessment Date Assessment LastModified by Organization Details LastModified Time 09/14/2024 09/14/2024 Time spent with patient included: preparing to see patient by reviewing tests, obtaining and reviewing history, medical examination and evaluation, counseling and educating the patient, ordering medications and tests, documenting clinical information in EHR, independently interpreting results and communicating results to the patient for a total of 38 minutes. Not available 09/14/2024 15:42:13 10/12/2024 10/12/2024 Time spent with patient included: preparing to see patient by reviewing tests, obtaining and reviewing history, medical examination and evaluation, counseling and educating the patient, ordering medications and tests, documenting clinical information in EHR, independently interpreting results and communicating results to the patient for a total of 25 minutes. Not available 10/12/2024 15:59:38 Plan of Treatment Reminders Order Date Submit Date Provider Last Modified By Organization Details Last Modified Time Details Appointments None recorded. Lab None recorded. Referral None recorded. Procedures None recorded. Surgeries None recorded. Imaging home sleep study - Please call patient to schedule. [address] [facility], [address] [facility], [place], [address], 18:56:08 Medication Orders None recorded. Patient TargetsNo targets recorded. Patient InstructionsNo instructions recorded. Reason for Referral None Reported. Results Created Date Observation Date Name Description Value Unit Range Abnormal Flag Note LastModifiedBy Organization Detail LastModifiedTime 08/03/19 21 08/02/2020 glyco hemog lobin , total , blood HA1C 5.4 % 4.0-6. 0 Diabe gaby Desiree rosas Crite shemar: <5.7% Consi stent with absen ce of diabe gaby 5.7-6 .4% Consi stent with incre ased risk for diabe gaby (pred iabet es) >OR=6 .5% Consi stent with diabe gaby REFER ENCE: Diabe gaby Care 2016, 39( ppl.1 ):s13 -s22 Not Available [facility] (Lab) [address] [place], [address], 08/02/2020 21:21:32 08/03/19 21 08/02/2020 TSH + free T4, serum thyroid-stim ulating hormone 1.870 uIU/m L 0.465- 4.680 Not Available [facility] (Lab) [address] [place], [address], 08/02/2020 18:47:19 08/03/19 21 08/02/2020 T4, free, serum free T4 0.94 NG/dL 0.78-2 .19 Not Available [facility] (Lab) [address] [place], [address], 08/02/2020 18:13:37 08/03/19 21 08/02/2020 pregn elio [...] 19 6,800 TO 42,90 0 Not Available [facility] (Lab) [address] [place], [address], 08/02/2020 18:13:32 08/03/19 21 08/02/2020 vitam in D, 25-hy droxy , total , serum vd25oh 46.6 NG/mL 30-100 Vitam in D Statu s: Defic ient: <20 ng/mL Insuf ficie nt: 20-29 ng/mL Suffi cient : 30-10 0 ng/mL Not Available [facility] (Lab) [address] [place], [address], 08/02/2020 18:12:47 08/03/19 21 08/02/2020 lipid panel , serum cholesterol 127 mg/dL 140-19 9 low NIH JASON NSUS RECOM MENDA TION FOR GLENIS STERO L: ADULT CHILD LOW RISK: <200 <170 BORDE RLINE : <200- 239 ----- HIGH RISK: >240 >200 Not Available [facility] (Lab) [address] [place], [address], 08/02/2020 17:46:51 08/03/19 21 08/02/2020 lipid panel , serum triglyceride s 62 mg/dL 0-150 NIH JASON NSUS REPOR T RECOM MENDA TION FOR TRIGL YCERI RENA: ADULT CHILD LOW RISK: <150 ----- BODER LINE: 150-1 99 ----- HIGH RISK: >200 ----- Not Available [facility] (Lab) [address] [place], [address], 08/02/2020 17:46:51 08/03/19 21 08/02/2020 lipid panel , serum HDL cholesterol 53 mg/dL 40- Not Available [facility] (Lab) [address] [place], [address], 08/02/2020 17:46:51 08/03/19 21 08/02/2020 lipid panel , serum LDL cholesterol, calculated 62 mg/dL 0-130 NIH JASON NSUS REPOR T RECOM MENDA TIONS FOR LDL: ADULT CHILD LOW RISK <130 <110 (OPTI MAL LDL) <100 ----- LEDY RLINE : 130-1 59 ----- HIGH RISK: >160 >130 A TRIGL YCERI DE RESUL T >400 INVAL IDATE S THE CALCU LATIO N FOR LDL FRACT IONAT ION - THE LDL RESUL T WILL NOT BE REPOR KELI. Not Available [facility] (Lab) [address] [place], [address], 08/02/2020 17:46:51 08/03/19 21 08/02/2020 CMP, serum or plasm a sodium 139 mmol/ L 137-14 5 Not Available [facility] (Lab) [address] [place], [address], 08/02/2020 17:46:43 08/03/19 21 08/02/2020 CMP, serum or plasm a potassium 4.3 mmol/ L 3.5-5. 1 Not Available [facility] (Lab) [address] [place], [address], 08/02/2020 17:46:43 08/03/19 21 08/02/2020 CMP, serum or plasm a chloride 104 mmol/ L 98-107 Not Available [facility] (Lab) [address] [place], [address], 08/02/2020 17:46:43 08/03/19 21 08/02/2020 CMP, serum or plasm a carbon dioxide 29 mmol/ L 22-30 Not Available [facility] (Lab) [address] [place], [address], 08/02/2020 17:46:43 08/03/19 21 08/02/2020 CMP, serum or plasm a agap 10.3 mmol/ L 14-22 low Not Available [facility] (Lab) [address] [place], [address], 08/02/2020 17:46:43 08/03/19 21 08/02/2020 CMP, serum or plasm a glucose 75 mg/dL 70-99 Not Available [facility] (Lab) [address] [place], [address], 08/02/2020 17:46:43 08/03/19 21 08/02/2020 CMP, serum or plasm a BUN 10 mg/dL 8-19 Not Available [facility] (Lab) [address] [place], [address], 08/02/2020 17:46:43 08/03/19 21 08/02/2020 CMP, serum or plasm a creatinine 0.70 mg/dL 0.66-1 .25 Not Available [facility] (Lab) [address] [place], [address], 08/02/2020 17:46:43 08/03/19 21 08/02/2020 CMP, serum or plasm a GFR >60 Refer ence Range : [place] ge GFR Healt hy Adult : >60 [...] lator can be locat ed on the [facility] websi te: [email or web address]/pr [email or web address] ional [email or web address] [email or web address]/gf r_cal culat or Not Available [facility] (Lab) [address] [place], [address], 08/02/2020 17:46:43 08/03/19 21 08/02/2020 CMP, serum or plasm a alkaline phosphatase 51 U/L 38-126 Not Available [facility] (Lab) [address] [place], [address], 08/02/2020 17:46:43 08/03/19 21 08/02/2020 CMP, serum or plasm a alanine aminotransfe rase 12 U/L 0-35 Not Available [facility] (Lab) [address] [place], [address], 08/02/2020 17:46:43 08/03/19 21 08/02/2020 CMP, serum or plasm a aspartate aminotransfe rase 21 U/L 15-37 Not Available [facility] (Lab) [address] [place], [address], 08/02/2020 17:46:43 08/03/19 21 08/02/2020 CMP, serum or plasm a bilirubin, total 0.40 mg/dL 0.20-1 .30 Not Available [facility] (Lab) [address] [place], [address], 08/02/2020 17:46:43 08/03/19 21 08/02/2020 CMP, serum or plasm a calcium 9.7 mg/dL 8.4-10 .2 Not Available [facility] (Lab) [address] [place], [address], 08/02/2020 17:46:43 08/03/19 21 08/02/2020 CMP, serum or plasm a total protein 7.3 g/dL 6.3-8. 2 Not Available [facility] (Lab) [address] [place], [address], 08/02/2020 17:46:43 08/03/19 21 08/02/2020 CMP, serum or plasm a albumin 4.7 g/dL 3.4-5. 0 Not Available [facility] (Lab) [address] [place], [address], 08/02/2020 17:46:43 08/03/19 21 08/02/2020 CMP, serum or plasm a globulin 2.6 g/dL 2.6-4. 2 Not Available [facility] (Lab) [address] [place], [address], 08/02/2020 17:46:43 08/03/1908/02/2020 CMP, serum or plasm a A/G ratio 1.8 ratio 1.0-2. 0 Not Available [facility] (Lab) [address] [place], [address], 08/02/2020 17:46:43 08/03/19 21 08/02/2020 urina lysis compl ete, refle x cultu re color light- yellow Not Available [facility] (Lab) [address] [place], [address], 08/02/2020 17:27:27 08/03/1908/02/2020 urina lysis compl ete, refle x cultu re appear turbid abnormal Not Available [facility] (Lab) [address] [place], [address], 08/02/2020 17:27:27 08/03/1908/02/2020 urina lysis compl ete, refle x cultu re specific gravity 1.021 1.001- 1.030 Not Available [facility] (Lab) [address] [place], [address], 08/02/2020 17:27:27 08/03/19 21 08/02/2020 urina lysis compl ete, refle x cultu re pH 7.5 pH_un its 5.0-9. 0 Not Available [facility] (Lab) [address] [place], [address], 08/02/2020 17:27:27 08/03/19 21 08/02/2020 urina lysis compl ete, refle x cultu re leukocytes negati ve carmencita/u L negati ve- Not Available [facility] (Lab) [address] [place], [address], 08/02/2020 17:27:27 08/03/19 21 08/02/2020 urina lysis compl ete, refle x cultu re nitrite negati ve negati ve- Not Available [facility] (Lab) [address] [place], [address], 08/02/2020 17:27:27 08/03/19 21 08/02/2020 urina lysis compl ete, refle x cultu re protein negati ve mg/dL negati ve- Not Available [facility] (Lab) [address] [place], [address], 08/02/2020 17:27:27 08/03/19 21 08/02/2020 urina lysis compl ete, refle x cultu re glucose normal mg/dL normal - Not Available [facility] (Lab) [address] [place], [address], 08/02/2020 17:27:27 08/03/19 21 08/02/2020 urina lysis compl ete, refle x cultu re ketones negati ve mg/dL negati ve- Not Available [facility] (Lab) [address] [place], [address], 08/02/2020 17:27:27 08/03/19 08/02/2020 urina lysis compl ete, refle x cultu re urobilinogen normal mg/dL normal - Not Available [facility] (Lab) [address] [place], [address], 08/02/2020 17:27:27 08/03/19 21 08/02/2020 urina lysis compl ete, refle x cultu re bilirubin negati ve mg/dL negati ve- Not Available [facility] (Lab) [address] [place], [address], 08/02/2020 17:27:27 08/03/19 21 08/02/2020 urina lysis compl ete, refle x cultu re blood negati ve mg/dL negati ve- Not Available [facility] (Lab) [address] [place], [address], 08/02/2020 17:27:27 08/03/19 21 08/02/2020 urina lysis compl ete, refle x cultu re white blood cells 0-8 /i??h pfi?? 0-8 Not Available [facility] (Lab) [address] [place], [address], 08/02/2020 17:27:27 08/03/19 21 08/02/2020 urina lysis compl ete, refle x cultu re red blood cells 0-4 /i??h pfi?? 0-4 Not Available [facility] (Lab) [address] [place], [address], 08/02/2020 17:27:27 08/03/19 21 08/02/2020 urina lysis compl ete, refle x cultu re bacteria none Not Available [facility] (Lab) [address] [place], [address], 08/02/2020 17:27:27 08/03/19 21 08/02/2020 urina lysis compl ete, refle x cultu re squamous epithelial modera te /i??l pfi?? abnormal Not Available [facility] (Lab) [address] [place], [address], 08/02/2020 17:27:27 08/03/19 21 08/02/2020 urina lysis compl ete, refle x cultu re amorphous crystal occasi onal /i??h pfi?? abnormal Not Available [facility] (Lab) [address] [place], [address], 08/02/2020 17:27:27 08/03/19 21 08/02/2020 CBC w/ auto diff white blood cells 11.5 x10'3 /uL 4.2-10 .8 high Not Available [facility] (Lab) [address] [place], [address], 08/02/2020 16:48:23 08/03/19 21 08/02/2020 CBC w/ auto diff red blood cells 4.54 x10'6 /uL 3.80-5 .20 Not Available [facility] (Lab) [address] [place], [address], 08/02/2020 16:48:23 08/03/19 21 08/02/2020 CBC w/ auto diff hemoglobin 13.4 g/dL 12.0-1 5.6 Not Available [facility] (Lab) [address] [place], [address], 08/02/2020 16:48:23 08/03/19 21 08/02/2020 CBC w/ auto diff hematocrit 40.3 % 35.7-4 5.7 Not Available [facility] (Lab) [address] [place], [address], 08/02/2020 16:48:23 08/03/19 21 08/02/2020 CBC w/ auto diff mean red cell volume 88.8 fL 82.0-9 9.0 Not Available [facility] (Lab) [address] [place], [address], 08/02/2020 16:48:23 08/03/19 21 08/02/2020 CBC w/ auto diff mean red cell hemoglobin 29.5 pg 27.0-3 3.0 Not Available [facility] (Lab) [address] [place], [address], 08/02/2020 16:48:23 08/03/19 21 08/02/2020 CBC w/ auto diff mean RBC HGB concentratio n 33.3 g/dL 31.0-3 6.0 Not Available [facility] (Lab) [address] [place], [address], 08/02/2020 16:48:23 08/03/19 21 08/02/2020 CBC w/ auto diff red cell distribution width 13.2 % 11.8-1 5.5 Not Available [facility] (Lab) [address] [place], [address], 08/02/2020 16:48:23 08/03/19 21 08/02/2020 CBC w/ auto diff platelets 304 x10'3 /uL 150-40 0 Not Available [facility] (Lab) [address] [place], [address], 08/02/2020 16:48:23 08/03/19 21 08/02/2020 CBC w/ auto diff mean platelet volume 10.1 fL 9.0-12 .4 Not Available [facility] (Lab) [address] [place], [address], 08/02/2020 16:48:23 08/03/19 21 08/02/2020 CBC w/ auto diff neutrophils 66.5 % 39.0-7 2.0 Not Available [facility] (Lab) [address] [place], [address], 08/02/2020 16:48:23 08/03/19 21 08/02/2020 CBC w/ auto diff lymphocytes 18.2 % 16.0-4 7.0 Not Available [facility] (Lab) [address] [place], [address], 08/02/2020 16:48:23 08/03/19 21 08/02/2020 CBC w/ auto diff monocytes 8.9 % 5.0-12 .0 Not Available [facility] (Lab) [address] [place], [address], 08/02/2020 16:48:23 08/03/19 21 08/02/2020 CBC w/ auto diff eosinophils 4.8 % 1.0-7. 0 Not Available [facility] (Lab) [address] [place], [address], 08/02/2020 16:48:23 08/03/19 21 08/02/2020 CBC w/ auto diff basophils 0.8 % 0.0-2. 0 Not Available [facility] (Lab) [address] [place], [address], 08/02/2020 16:48:23 08/03/19 21 08/02/2020 CBC w/ auto diff immature granulocytes 0.8 % 0.00-0 .50 high Not Available [facility] (Lab) [address] [place], [address], 08/02/2020 16:48:23 08/03/19 21 08/02/2020 CBC w/ auto diff neutrophils, absolute count 7.66 x10'3 /uL 1.5-8. 0 Not Available [facility] (Lab) [address] [place], [address], 08/02/2020 16:48:23 08/03/19 21 08/02/2020 CBC w/ auto diff lymphocytes, absolute count 2.09 x10'3 /uL 1.07-3 .43 Not Available [facility] (Lab) [address] [place], [address], 08/02/2020 16:48:23 08/03/19 21 08/02/2020 CBC w/ auto diff monocytes, absolute count 1.03 x10'3 /uL 0.29-0 .99 high Not Available [facility] (Lab) [address] [place], [address], 08/02/2020 16:48:23 08/03/19 21 08/02/2020 CBC w/ auto diff eosinophils, absolute count 0.55 x10'3 /uL 0.02-0 .53 high Not Available [facility] (Lab) [address] [place], [address], 08/02/2020 16:48:23 08/03/19 21 08/02/2020 CBC w/ auto diff basophils, absolute count 0.09 x10'3 /uL 0.01-0 .08 high Not Available [facility] (Lab) [address] [place], [address], 08/02/2020 16:48:23 08/03/19 21 08/02/2020 CBC w/ auto diff immature granulocytes ,absolute 0.09 x10'3 /uL 0.00-0 .05 high Not Available [facility] (Lab) [address] [place], [address], 08/02/2020 16:48:23 08/03/19 21 08/02/2020 CBC w/ auto diff nucleated red blood cells 0.0 % -0 Not Available [facility] (Lab) [address] [place], [address], 08/02/2020 16:48:23 08/03/19 21 08/02/2020 CBC w/ auto diff NRBC# 0.00 x10'3 /uL Not Available [facility] (Lab) [address] [place], [address], 08/02/2020 16:48:23 08/27/19 21 08/27/2020 CT, NG, TRICH VAG BY LATISHA chlamydia by LATISHA negati ve negati ve Not Available [facility] ([facility]) [address] [place], [address], 08/28/2020 06:12:24 08/27/19 21 08/27/2020 CT, NG, TRICH VAG BY LATISHA gonococcus by LATISHA negati ve negati ve Not Available [facility] ([facility]) [address] [place], [address], 08/28/2020 06:12:24 08/27/19 21 08/27/2020 CT, NG, TRICH VAG BY LATISHA trich vag by LATISHA negati ve negati ve Not Available [facility] ([facility]) [address] [place], [address], 08/28/2020 06:12:24 08/28/19 21 08/27/2020 pregn elio test, urine HCG negati ve Not Available [facility] [address], [address], [address], 08/26/2020 16:54:07 08/14/19 21 08/12/2020 US, pelvi s, trans abdom inal + trans vagin al [facility] [address] [place] [address] [phone] Patien t Name: CHARIS ODONNELL Access ion #: [id number] Sex: F : 1995 0 Locati [...] the pelvis . Page 1 of 2 [facility] Name: CHARIS ODONNELL Access ion #: [id number] Sex: F : 1995 0 Exam [...] 7:23 AM (CT) Page 2 of 2 [id number] [facility] (Imaging) [address] [place], [address], 04/29/2022 20:21:16 09/29/19 25 09/26/2024 home sleep study No observ ation record ed. [facility] [address] [place], [address], 10/09/2024 18:13:33 Result Notes None recorded. Problems Name Problem SNOMED Code Status Onset Date Resolution Date Notes Provider Name and Address Organization Details Recorded Time Depressive disorder 22055672 Active 021 Oscar Rodríguez MD [address] [facility], [place] [address], [place], [address], [employer] 5 18:31:36 Anxiety 27914049 Active 021 Oscar Rodríguez MD [address], [place] [address], [place], [address], [employer] 5 18:31:40 Excessive daytime sleepiness - normal night sleep 145643912 Active 025 Antonia Valle NP [address], [facility] [address], [place], [address], [employer] 5 15:57:32 Notes:[facility] home sleep study 09/26/24, AHI = 1 Medical History: ADHD/Depression/Anxiety Mild OSAHS, AHI = 1, 09/26/24 VIRI Vit D deficiency Procedure History: Spinal 2010 T&A Endoscopic sinus surgery Problem Notes None recorded. Procedures Surgical History Date Name Laterality Status Provider Name and Address Organization Details Recorded Time Sinus Surgery completed Not Available [facility] 04/29/2022 20:19:31 Back Surgery completed Not Available [facility] 04/29/2022 20:19:31 Remove tonsils and adenoids completed Not Available [facility] 04/29/2022 20:19:31 Imaging Results None recorded. Procedure Notes None recorded. Medical Equipment None Reported. Allergies Allergen ID Allergen Name Allergen Category Reaction Reaction Severity Criticality Documentation Date Start Date Code Code System Note Provider Name and Address Organization Details Recorded Time 89089 Substance with sulfonami de structure and antibacte rial mechanism of action (substanc e) medicatio n rash Not available Not available 04/29/2022 42668 8003 SNOMED Not Available [facility] 3 20:21:14 Medications Name Sig Start Date Stop Date Status Note LastModified by Organization Details LastModified Time fluoxetine 40 mg capsule TK 1 C PO QAM FOR MAJOR DEPRESSIV E DISORDER 08/02 completed Not Available Not Available Not Available metronidazo le 0.75 % (37.5 mg/5 gram) vaginal gel INSERT ONE APPLICATO RFUL VAGINALLY AT BEDTIME FOR 5 NIGHTS 09/14 completed Not Available Not Available Not Available clonazepam 0.5 mg tablet TK 1 T PO BID PRA 08/02 completed Not Available Not Available Not Available famotidine 20 mg tablet TAKE 1 TABLET BY MOUTH DAILY NEEDED FOR ABDOMINAL DISCOMFOR T 09/14 completed Not Available Not Available Not Available metoclopram elias 5 mg tablet TAKE 1 TABLET BY MOUTH EVERY 6 HOURS NEEDED FOR NAUSEA 09/14 completed Not Available Not Available Not Available dextroamphe tamine-amph etamine ER 20 mg 24hr capsule,ext end release TAKE 1 CAPSULE BY MOUTH EVERY DAY IN THE MORNING 09/14 completed Not Available Not Available Not Available hydroxyzine HCl 25 mg tablet TAKE 1 TABLET BY MOUTH TWICE DAILY NEEDED 09/14 completed Not Available Not Available Not Available ergocalcife rol (vitamin D2) 1,250 mcg (50,000 unit) capsule TAKE 1 CAPSULE BY MOUTH ONE TIME PER WEEK active Not Available Not Available No t Available hydroxyzine HCl 10 mg tablet TAKE 1 TO 2 TABLETS BY MOUTH NEEDED FOR ANXIETY 09/14 completed Not Available Not Available Not Available fluoxetine 20 mg capsule TAKE 1 CAPSULE BY MOUTH EVERY DAY IN THE MORNING 09/14 completed Not Available Not Available Not Available hydroxyzine pamoate 25 mg capsule TAKE 1 CAPSULE BY MOUTH THREE TIMES DAILY NEEDED 09/14 completed Not Available Not Available Not Available dextroamphe tamine-amph etamine ER 15 mg 24hr capsule,ext end release TAKE 1 CAPSULE BY MOUTH EVERY DAY IN THE MORNING 09/14 completed Not Available Not Available Not Available azithromyci n 500 mg tablet TAKE 2 TABLETS BY MOUTH ONCE SINGLE DOSE 09/14 completed Not Available Not Available Not Available bupropion HCl XL 150 mg 24 hr tablet, extended release TAKE 1 TABLET BY MOUTH EVERY DAY IN THE MORNING 09/14 completed Not Available Not Available Not Available famotidine active Not Available Not Av ailable Not Available active Not Available Not Avai lable Not Available cholecalcif concepcion (vitamin D3) 1,250 mcg (50,000 unit) capsule TK 1 C PO Q 7 DAYS 08/02 completed Not Available Not Available Not Available Vyvanse 40 mg capsule TK ONE C PO D WITH CARL 08/02 completed Not Available Not Available Not Available M- Plus 27 mg iron-1 mg tablet TAKE 1 TABLET BY MOUTH EVERY DAY active Not Available Not Available No t Available Aurovela Fe 1-20 (28) 1 mg-20 mcg (21)/75 mg (7) tablet TAKE 1 TABLET BY MOUTH EVERY DAY 09/14 completed Not Available Not Available Not Available COVID-19 test specimen collection TEST DIRECTED TODAY 09/14 completed Not Available Not Available Not Available aspirin 81 mg capsule Take 1 capsule every day by oral route. active Not Available Not Available No t Available Vitals Date Recorded Body mass index (BMI) Body height Oxygen saturation Oxygen saturation in Arterial blood by Pulse oximetry Heart rate Body temperature Body weight Systolic And Diastolic Provider Name and Address Organization Details Last Updated DateTime 1 28 kg/m2 160.02 cm 98 % 98 % 85 /min 98 [degF] 12358.5 9 g 116/80 mm[Hg] Not Available [facility] 3 20:19:57 Date Recorded Body mass index (BMI) Body height Body weight Systolic And Diastolic Provider Name and Address Organization Details Last Updated DateTime 08/26/2020 27.8 kg/m2 160.02 cm 62043 g 120/80 mm[Hg] Not Available [facility] 04/29/2022 20:19:57 Date Recorded Body weight Heart rate Oxygen saturation Oxygen saturation in Arterial blood by Pulse oximetry Body temperature Systolic And Diastolic Provider Name and Address Organization Details Last Updated DateTime 5 71436.1 1 g 106 /min 98 % 98 % 98.2 [degF] 124/68 mm[Hg] Fadia Mishra MA [place] [employer] 5 15:04:46 Date Recorded Body weight Body temperature Heart rate Oxygen saturation Oxygen saturation in Arterial blood by Pulse oximetry Body mass index (BMI) Body height Systolic And Diastolic Provider Name and Address Organization Details Last Updated DateTime 5 52578.2 2 g 98.3 [degF] 102 /min 98 % 98 % 31.1 kg/m2 162.56 cm 122/80 mm[Hg] Fadia Mishra MA [employer] 5 15:45:44 Date Recorded Body mass index (BMI) Body height Body temperature Body weight Systolic And Diastolic Provider Name and Address Organization Details Last Updated DateTime 11/25/2020 28.3 kg/m2 160.02 cm 97.9 [degF] 62388.7 8 g 119/78 mm[Hg] Not Available [facility] hospital 20:19:57 Social History Question Answer Notes LastModified by Organizat ion Details LastModified Time Tobacco Smoking Status Never Smoker Not Available Critical access hospital 04/29/2022 20:19:29 What Is Your Level Of Caffeine Consumption? Moderate [id number] Information not available 04/29/2022 How Much Tobacco Do You Chew? None [id number] Information not available 04/29/2022 In The 14 Days Before Symptom Onset, Have You Had Close Contact With A Laboratory-confirm ed COVID-19 While That Case Was Ill? No [id number] Information not available 04/29/2022 In The 14 Days Before Symptom Onset, Have You Had Close Contact With A Person Who Is Under Investigation For COVID-19 While That Person Was Ill? No [id number] Information not available 04/29/2022 What Type Of Diet Are You Following? REGULAR [id number] Information not available 04/29/2022 Which Illicit Or Recreational Drugs Have You Used? No [id number] Information not available 04/29/2022 Do You Have An Electrostatic Air Filter? No Information not available 09/14/2024 Are There Any Guns Present In Your Home? No [id number] Information not available 04/29/2022 Do You Have A Humidifier? No Information not available 09/14/2024 Do You Have Moisture Problems In Your Home? No Information not available 09/14/2024 What Was The Date Of Your Most Recent Tobacco Screening? 10/12/2024 Information not available 10/12/2024 Do You Have Any Pets? Yes Information not available 09/14/2024 Do You Use Your Seat Belt Or Car Seat Routinely? Yes Information not available 09/14/2024 Do You Have Smoke And Carbon Monoxide Detectors In Your Home? Yes Information not available 09/14/2024 Are You Passively Exposed To Smoke? No Information no t available 09/14/2024 How Much Tobacco Do You Smoke? No MIGRATION.[id number] 1923 Information not available 04/29/2022 Do You Use Sunscreen Routinely? No Information not available 09/14/2024 Have You Recently Traveled Abroad? No Information not available 09/14/2024 Sex: Female Functional Status Question Answer Note LastModified by Organizat ion Details LastModified Time Do you use any illicit or recreational drugs? No Information not available 09/14/2024 Do you or have you ever used any other forms of tobacco or nicotine? Yes Information not available 09/14/2024 What is your level of alcohol consumption? None MIGRATION.[id number] Information not available 04/29/2022 Do you or have you ever used smokeless tobacco? Never used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
--- OUTSIDE RECORDS SUMMARY | 2024-11-30 08:40 | XMS_ITS | Encounter Summary ---
Author Organization [facility] Address [address] [place] [address] Care Team Providers Care City Attorney Name Role Phone Unavailable Primary Care Provider Unavailabl e Encounter Details Date Type Department Care Team (Late st Contact Info) Description 04/29/1999 Outpatient Historical [facility] Pediatrics [place] [address] [place] [address] Moises Guerrero Social History Tobacco Use Types Packs/Day Years Used Date Smoking Tobacco: Never Assessed Comments Unknown Sex and Gender Information Value Date Recorded Sex Assigned at Not on file Legal Sex Female 2:44 AM PLUMBING CONTRACTOR Gender Identity Not on file Sexual Orientation Not on file documented as of this encounter Plan of Treatment Not on file documented as of this encounter Visit Diagnoses Not on filedocumented in this encounter
--- OUTSIDE RECORDS SUMMARY | 2024-11-30 08:40 | XMS_ITS | Encounter Summary ---
Author Organization [facility] Address [address] [place] [address] Care Team Providers Care Physicist Nuclear Name Role Phone Unavailable Primary Care Provider Unavailabl e Encounter Details Date Type Department Care Team (Late st Contact Info) Description 01/14/1998 Outpatient Historical [facility] Pediatrics [place] [address] [place] [address] Moises Guerrero Social History Tobacco Use Types Packs/Day Years Used Date Smoking Tobacco: Never Assessed Comments Unknown Sex and Gender Information Value Date Recorded Sex Assigned at Not on file Legal Sex Female 2:44 AM CLIENT SERVICE AND CONSULTING MANAGER Gender Identity Not on file Sexual Orientation Not on file documented as of this encounter Plan of Treatment Not on file documented as of this encounter Visit Diagnoses Not on filedocumented in this encounter
--- OUTSIDE RECORDS SUMMARY | 2024-11-30 08:40 | XMS_ITS | Encounter Summary ---
Author Organization [facility] Address [address] [place] [address] Care Team Providers Care Organ Pipe Finisher Name Role Phone Unavailable Primary Care Provider Unavailabl e Encounter Details Date Type Department Care Team (Late st Contact Info) Description 12/03/1998 Outpatient Historical [facility] Pediatrics [place] [address] [place] [address] Moises Guerrero Social History Tobacco Use Types Packs/Day Years Used Date Smoking Tobacco: Never Assessed Comments Unknown Sex and Gender Information Value Date Recorded Sex Assigned at Not on file Legal Sex Female 2:44 AM GETTERER Gender Identity Not on file Sexual Orientation Not on file documented as of this encounter Plan of Treatment Not on file documented as of this encounter Visit Diagnoses Not on filedocumented in this encounter
--- OUTSIDE RECORDS SUMMARY | 2024-11-30 08:40 | XMS_ITS | Encounter Summary ---
Author Organization [facility] Address [address] [place] [address] Care Team Providers Care Maint Mechanic Name Role Phone Unavailable Primary Care Provider Unavailabl e Encounter Details Date Type Department Care Team (Late st Contact Info) Description 09/21/2000 Outpatient Historical [facility] Pediatrics [place] [address] [place] [address] Edgar Morton MD [address] [facility] [address] [place] [address] Social History Tobacco Use Types Packs/Day Years Used Date Smoking Tobacco: Never Assessed Comments Unknown Sex and Gender Information Value Date Recorded Sex Assigned at Not on file Legal Sex Female 2:44 AM WEB SERVICES ARCHITECT Gender Identity Not on file Sexual Orientation Not on file documented as of this encounter Plan of Treatment Not on file documented as of this encounter Visit Diagnoses Not on filedocumented in this encounter
--- OUTSIDE RECORDS SUMMARY | 2024-11-30 08:40 | XMS_ITS | Encounter Summary ---
Author Organization [facility] Address [address] [place] [address] Care Team Providers Care Assistance Specialist Name Role Phone Unavailable Primary Care Provider Unavailabl e Encounter Details Date Type Department Care Team (Late st Contact Info) Description 11/28/1998 Outpatient Historical [facility] Pediatrics [place] [address] [place] [address] Moises Guerrero Social History Tobacco Use Types Packs/Day Years Used Date Smoking Tobacco: Never Assessed Comments Unknown Sex and Gender Information Value Date Recorded Sex Assigned at Not on file Legal Sex Female 2:44 AM NUT STEAMER Gender Identity Not on file Sexual Orientation Not on file documented as of this encounter Plan of Treatment Not on file documented as of this encounter Visit Diagnoses Not on filedocumented in this encounter
--- OUTSIDE RECORDS SUMMARY | 2024-11-30 08:40 | XMS_ITS | Encounter Summary ---
Author Organization [facility] Address [address] [place] [address] Care Team Providers Care Nailing Machine Operator Name Role Phone Unavailable Primary Care Provider Unavailabl e Encounter Details Date Type Department Care Team (Late st Contact Info) Description 01/07/1998 Outpatient Historical [facility] Pediatrics [place] [address] [place] [address] Moises Guerrero Social History Tobacco Use Types Packs/Day Years Used Date Smoking Tobacco: Never Assessed Comments Unknown Sex and Gender Information Value Date Recorded Sex Assigned at Not on file Legal Sex Female 2:44 AM PAPER WINDER Gender Identity Not on file Sexual Orientation Not on file documented as of this encounter Plan of Treatment Not on file documented as of this encounter Visit Diagnoses Not on filedocumented in this encounter
--- OUTSIDE RECORDS SUMMARY | 2024-11-30 08:40 | XMS_ITS | Patient Health Record ---
Author Organization [facility] Address [address] [place], [place] [id number] Support Name Relationship Address Phone NITAMAGALIE Emergency Contact Unknown [phone] ANNIKA ALVARES Guarantor Unknown [phone] Reason For Referral No Information Plan Of Treatment No Information Insurance Providers Payer Name Payer Address Payer Phone Subscriber Number Group Number Insured Name Patient Relationship to Insured Coverage Start Date Coverage End Date [facility] [address] [place] [phone] [id number] ANNIKA ALVARES Self - patient is the insured
--- OUTSIDE RECORDS SUMMARY | 2024-11-30 08:40 | XMS_ITS | Encounter Summary ---
Author Organization [facility] Address [address] [place] [address] Care Team Providers Care Machine Hamper Maker Name Role Phone Unavailable Primary Care Provider Unavailabl e Encounter Details Date Type Department Care Team (Late st Contact Info) Description 05/29/1999 Outpatient Historical [facility] Pediatrics [place] [address] [place] [address] Moises Guerrero Social History Tobacco Use Types Packs/Day Years Used Date Smoking Tobacco: Never Assessed Comments Unknown Sex and Gender Information Value Date Recorded Sex Assigned at Not on file Legal Sex Female 2:44 AM SECURITY SYSTEMS ADMINISTRATOR Gender Identity Not on file Sexual Orientation Not on file documented as of this encounter Plan of Treatment Not on file documented as of this encounter Visit Diagnoses Not on filedocumented in this encounter
--- OUTSIDE RECORDS SUMMARY | 2024-11-30 08:40 | XMS_ITS | Encounter Summary ---
Author Organization [facility] Address [address] [place] [address] Care Team Providers Care Cash Management Clerk Name Role Phone Unavailable Primary Care Provider Unavailabl e Encounter Details Date Type Department Care Team (Late st Contact Info) Description 02/05/2000 Outpatient Historical [facility] Pediatrics [place] [address] [facility] [address] [place] [address] Kashmir Gunn MD [address] [facility] [address] [place] [address] Social History Tobacco Use Types Packs/Day Years Used Date Smoking Tobacco: Never Assessed Comments Unknown Sex and Gender Information Value Date Recorded Sex Assigned at Not on file Legal Sex Female 2:44 AM CUSTOMER ACCOUNT ADMINISTRATOR Gender Identity Not on file Sexual Orientation Not on file documented as of this encounter Plan of Treatment Not on file documented as of this encounter Visit Diagnoses Not on filedocumented in this encounter
--- OUTSIDE RECORDS SUMMARY | 2024-11-30 08:40 | XMS_ITS | Encounter Summary ---
Author Organization [facility] Address [address] [place] [address] Care Team Providers Care Reeling Machine Operator Name Role Phone Unavailable Primary Care Provider Unavailabl e Encounter Details Date Type Department Care Team (Late st Contact Info) Description 01/05/2000 Outpatient Historical [facility] Pediatrics [place] [address] [facility] [address] [place] [address] Kashmir Gunn MD [address] [facility] [address] [place] [address] Social History Tobacco Use Types Packs/Day Years Used Date Smoking Tobacco: Never Assessed Comments Unknown Sex and Gender Information Value Date Recorded Sex Assigned at Not on file Legal Sex Female 2:44 AM FILE SYSTEM INSTALLER Gender Identity Not on file Sexual Orientation Not on file documented as of this encounter Plan of Treatment Not on file documented as of this encounter Visit Diagnoses Not on filedocumented in this encounter
--- OUTSIDE RECORDS SUMMARY | 2024-11-30 08:40 | XMS_ITS | Encounter Summary ---
Author Organization [facility] Address [address] [place] [address] Care Team Providers Care Electronic Communications Technician Name Role Phone Unavailable Primary Care Provider Unavailabl e Encounter Details Date Type Department Care Team (Late st Contact Info) Description 01/06/1999 Outpatient Historical [facility] Pediatrics [place] [address] [place] [address] Moises Guerrero Social History Tobacco Use Types Packs/Day Years Used Date Smoking Tobacco: Never Assessed Comments Unknown Sex and Gender Information Value Date Recorded Sex Assigned at Not on file Legal Sex Female 2:44 AM EDITOR MANAGING NEWSPAPER Gender Identity Not on file Sexual Orientation Not on file documented as of this encounter Plan of Treatment Not on file documented as of this encounter Visit Diagnoses Not on filedocumented in this encounter
--- OUTSIDE RECORDS SUMMARY | 2024-11-30 08:40 | XMS_ITS | Encounter Summary ---
Author Organization [facility] Address [address] [place] [address] Care Team Providers Care Hand Hardener Name Role Phone Unavailable Primary Care Provider Unavailabl e Encounter Details Date Type Department Care Team (Late st Contact Info) Description 08/11/1999 Outpatient Historical [facility] Pediatrics [place] [address] [place] [address] Moises Guerrero Social History Tobacco Use Types Packs/Day Years Used Date Smoking Tobacco: Never Assessed Comments Unknown Sex and Gender Information Value Date Recorded Sex Assigned at Not on file Legal Sex Female 2:44 AM DRAWING CHECKER Gender Identity Not on file Sexual Orientation Not on file documented as of this encounter Plan of Treatment Not on file documented as of this encounter Visit Diagnoses Not on filedocumented in this encounter
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
--- OUTSIDE RECORDS SUMMARY | 2024-11-30 08:40 | XMS_ITS | Encounter Summary ---
Author Organization [facility] Address [address] [place] [address] Care Team Providers Care Line And Frame Poler Name Role Phone Unavailable Primary Care Provider Unavailabl e Encounter Details Date Type Department Care Team (Late st Contact Info) Description 08/15/1999 Outpatient Historical [facility] Pediatrics [place] [address] [place] [address] Moises Guerrero Social History Tobacco Use Types Packs/Day Years Used Date Smoking Tobacco: Never Assessed Comments Unknown Sex and Gender Information Value Date Recorded Sex Assigned at Not on file Legal Sex Female 2:44 AM SHANK PINNER Gender Identity Not on file Sexual Orientation Not on file documented as of this encounter Plan of Treatment Not on file documented as of this encounter Visit Diagnoses Not on filedocumented in this encounter
--- OUTSIDE RECORDS SUMMARY | 2024-11-30 08:40 | XMS_ITS | Encounter Summary ---
Author Organization [facility] Address [address] [place] [address] Care Team Providers Care Christian Science Healer Name Role Phone Unavailable Primary Care Provider Unavailabl e Encounter Details Date Type Department Care Team (Late st Contact Info) Description 06/12/1999 Outpatient Historical [facility] [place] [address] [place] [address] Moises Guerrero Social History Tobacco Use Types Packs/Day Years Used Date Smoking Tobacco: Never Assessed Comments Unknown Sex and Gender Information Value Date Recorded Sex Assigned at Not on file Legal Sex Female 2:44 AM OTR COMPANY DRIVER Gender Identity Not on file Sexual Orientation Not on file documented as of this encounter Plan of Treatment Not on file documented as of this encounter Visit Diagnoses Not on filedocumented in this encounter
--- OUTSIDE RECORDS SUMMARY | 2024-11-30 08:40 | XMS_ITS | Encounter Summary ---
Author Organization [facility] Address [address] [place] [address] Care Team Providers Care Museum Archivist Name Role Phone Unavailable Primary Care Provider Unavailabl e Encounter Details Date Type Department Care Team (Late st Contact Info) Description 08/23/1998 Outpatient Historical [facility] Pediatrics [place] [address] [place] [address] Moises Guerrero Social History Tobacco Use Types Packs/Day Years Used Date Smoking Tobacco: Never Assessed Comments Unknown Sex and Gender Information Value Date Recorded Sex Assigned at Not on file Legal Sex Female 2:44 AM PRACTICE BILLING ASSOCIATE Gender Identity Not on file Sexual Orientation Not on file documented as of this encounter Plan of Treatment Not on file documented as of this encounter Visit Diagnoses Not on filedocumented in this encounter
--- OUTSIDE RECORDS SUMMARY | 2024-11-30 08:40 | XMS_ITS | Encounter Summary ---
Author Organization [facility] Address [address] [place] [address] Care Team Providers Care Financial Assistance Advisor Name Role Phone Unavailable Primary Care Provider Unavailabl e Encounter Details Date Type Department Care Team (Late st Contact Info) Description 08/23/1998 Outpatient Historical [facility] Pediatrics [place] [address] [place] [address] Moises Guerrero Social History Tobacco Use Types Packs/Day Years Used Date Smoking Tobacco: Never Assessed Comments Unknown Sex and Gender Information Value Date Recorded Sex Assigned at Not on file Legal Sex Female 2:44 AM ALUMNI RELATIONS COORDINATOR Gender Identity Not on file Sexual Orientation Not on file documented as of this encounter Plan of Treatment Not on file documented as of this encounter Visit Diagnoses Not on filedocumented in this encounter
--- OUTSIDE RECORDS SUMMARY | 2024-11-30 08:40 | XMS_ITS | Encounter Summary ---
Author Organization [facility] Address [address] [place] [address] Care Team Providers Care Taxicab Dispatcher Name Role Phone Unavailable Primary Care Provider Unavailabl e Encounter Details Date Type Department Care Team (Late st Contact Info) Description 07/25/1999 Outpatient Historical [facility] Pediatrics [place] [address] [place] [address] Moises Guerrero Social History Tobacco Use Types Packs/Day Years Used Date Smoking Tobacco: Never Assessed Comments Unknown Sex and Gender Information Value Date Recorded Sex Assigned at Not on file Legal Sex Female 2:44 AM BUSINESS TAXES SPECIALIST Gender Identity Not on file Sexual Orientation Not on file documented as of this encounter Plan of Treatment Not on file documented as of this encounter Visit Diagnoses Not on filedocumented in this encounter
--- OUTSIDE RECORDS SUMMARY | 2024-11-30 08:40 | XMS_ITS | Encounter Summary ---
Author Organization [facility] Address [address] [place] [address] Care Team Providers Care Sister Superior Name Role Phone Unavailable Primary Care Provider Unavailabl e Encounter Details Date Type Department Care Team (Late st Contact Info) Description 04/03/2000 Outpatient Historical [facility] Pediatrics [place] [address] [facility] [address] [place] [address] Luis Conklin MD [address] [place] [address] Social History Tobacco Use Types Packs/Day Years Used Date Smoking Tobacco: Never Assessed Comments Unknown Sex and Gender Information Value Date Recorded Sex Assigned at Not on file Legal Sex Female 2:44 AM ACCESS SPECIALIST Gender Identity Not on file Sexual Orientation Not on file documented as of this encounter Plan of Treatment Not on file documented as of this encounter Visit Diagnoses Not on filedocumented in this encounter
--- OUTSIDE RECORDS SUMMARY | 2024-11-30 08:40 | XMS_ITS | Clinical Summary ---
Author Organization [facility] Address [address] [place] [address] Phone Care Team Providers Care Manipulator Operator Name Role Phone Unavailable Primary Care [...] on file Legal Sex Female 2:44 AM APPLICATIONS PROJECT MANAGER Gender Identity Not on file Sexual Orientation Not on file Occupation Industry Job Start Date Job End Date Not on file Not on file Not on file Not on file Last Filed Vital Signs Vital Sign Reading Time Taken Comments Blood Pressure 110/80 01/28/2016 11:54 AM APPLICATIONS PROJECT MANAGER Pulse 101 01/28/2016 11:54 AM APPLICATIONS PROJECT MANAGER Temperature 37.1 C (98.7 F) 01/28/2016 11:54 AM APPLICATIONS PROJECT MANAGER Respiratory Rate 18 01/28/2016 11:54 AM APPLICATIONS PROJECT MANAGER Oxygen Saturation 97% 01/28/2016 11:54 AM APPLICATIONS PROJECT MANAGER Inhaled Oxygen Concentration - - Weight 61.7 kg (136 lb) 01/28/2016 11:54 AM APPLICATIONS PROJECT MANAGER Height 160 cm (5' 3) 01/28/2016 11:54 AM APPLICATIONS PROJECT MANAGER Body Mass Index 24.09 01/28/2016 11:54 AM APPLICATIONS PROJECT MANAGER Plan of Treatment Health Maintenance Due Date Last Done Comments HPV VACCINES (1 - 3-dose series) 2012 DTAP/TDAP/TD VACCINES (1 - Tdap) 2016 HEPATITIS B VACCINES (1 of 3 - 19+ 3-dose series) 10/31 CERVICAL CANCER SCREENING 2018 HPV/Cotest (21-29) 2018 PAP SMEAR 2018 INFLUENZA VACCINE (#1) 2024
--- OUTSIDE RECORDS SUMMARY | 2024-11-30 08:41 | XMS_ITS | Encounter Summary ---
Author Organization [facility] Address [address] [place] [address] Care Team Providers Care Marina Dry Dock Manager Name Role Phone Unavailable Primary Care Provider Unavailabl e Encounter Details Date Type Department Care Team (Late st Contact Info) Description 11/15/2003 Outpatient Historical [facility] Pediatrics [place] [address] [facility] [place] [facility] [address] [place] [address] Kashmir Gunn MD [address] [facility] [address] [place] [address] Social History Tobacco Use Types Packs/Day Years Used Date Smoking Tobacco: Never Assessed Comments Unknown Sex and Gender Information Value Date Recorded Sex Assigned at Not on file Legal Sex Female 2:44 AM LAUNCH MANAGER Gender Identity Not on file Sexual Orientation Not on file documented as of this encounter Plan of Treatment Not on file documented as of this encounter Procedures Procedure Name Priority Date/Time Associated Diagnosis Comments CHG POLIOVIRUS IPV [facility] 4 12:00 AM CDT CHG MMR VACCINE SQ [facility] 4 12:00 AM CDT CHG DTAP VACCINE <7 YO IM [facility] 11/15/2003 12:00 AM CDT documented in this encounter Visit Diagnoses Not on filedocumented in this encounter
--- OUTSIDE RECORDS SUMMARY | 2024-11-30 08:41 | XMS_ITS | Encounter Summary ---
Author Organization [facility] Address [address] [place] [address] Care Team Providers Care Field Laborer Name Role Phone Unavailable Primary Care Provider Unavailabl e Encounter Details Date Type Department Care Team (Late st Contact Info) Description 03/05/2001 Outpatient Historical [facility] Pediatrics [place] [address] [facility] [address] [place] [address] Luis Conklin MD [address] [place] [address] Social History Tobacco Use Types Packs/Day Years Used Date Smoking Tobacco: Never Assessed Comments Unknown Sex and Gender Information Value Date Recorded Sex Assigned at Not on file Legal Sex Female 2:44 AM NUCLEAR MONITORING TECHNICIAN Gender Identity Not on file Sexual Orientation Not on file documented as of this encounter Plan of Treatment Not on file documented as of this encounter Visit Diagnoses Not on filedocumented in this encounter
--- OUTSIDE RECORDS SUMMARY | 2024-11-30 08:41 | XMS_ITS | Encounter Summary ---
Author Organization [facility] Address [address] [place] [address] Care Team Providers Care Advice Clerk Name Role Phone Unavailable Primary Care Provider Unavailabl e Encounter Details Date Type Department Care Team (Late st Contact Info) Description 05/31/1998 Outpatient Historical [facility] Pediatrics [address] [place] [address] Moises Guerrero Social History Tobacco Use Types Packs/Day Years Used Date Smoking Tobacco: Never Assessed Comments Unknown Sex and Gender Information Value Date Recorded Sex Assigned at Not on file Legal Sex Female 2:44 AM SUPERINTENDENT CUSTODIAN JANITOR Gender Identity Not on file Sexual Orientation Not on file documented as of this encounter Plan of Treatment Not on file documented as of this encounter Procedures Procedure Name Priority Date/Time Associated Diagnosis Comments CHG POLIOVIRUS VACCINE LIVE ORAL [facility] 05/31/1998 12:00 AM SUPERINTENDENT CUSTODIAN JANITOR documented in this encounter Visit Diagnoses Not on filedocumented in this encounter
--- OUTSIDE RECORDS SUMMARY | 2024-11-30 08:41 | XMS_ITS | Encounter Summary ---
Author Organization [facility] Address [address] [place] [address] Care Team Providers Care Prior Authorization Nurse Name Role Phone Unavailable Primary Care Provider Unavailabl e Encounter Details Date Type Department Care Team (Late st Contact Info) Description 05/31/1998 Outpatient Historical [facility] Pediatrics [address] [place] [address] Moises Guerrero Social History Tobacco Use Types Packs/Day Years Used Date Smoking Tobacco: Never Assessed Comments Unknown Sex and Gender Information Value Date Recorded Sex Assigned at Not on file Legal Sex Female 2:44 AM MANAGER CRITICAL CARE UNIT Gender Identity Not on file Sexual Orientation Not on file documented as of this encounter Plan of Treatment Not on file documented as of this encounter Procedures Procedure Name Priority Date/Time Associated Diagnosis Comments CHG HEPATITIS B VACCINE PED ADOL IM 3 DOSE [facility] 05/31/1998 12:00 AM MANAGER CRITICAL CARE UNIT CHG DTAP VACCINE <7 YO IM [facility] 05/31/1998 12:00 AM MANAGER CRITICAL CARE UNIT documented in this encounter Visit Diagnoses Not on filedocumented in this encounter
--- OUTSIDE RECORDS SUMMARY | 2024-11-30 08:41 | XMS_ITS | Encounter Summary ---
Author Organization [facility] Address [address] [place] [address] Care Team Providers Care Tube Molder Fiberglass Name Role Phone Unavailable Primary Care Provider Unavailabl e Encounter Details Date Type Department Care Team (Late st Contact Info) Description 06/04/2003 Outpatient Historical [facility] Pediatrics [address] [place] [address] Murtaza Mcnulty MD [address] [place] [address] Social History Tobacco Use Types Packs/Day Years Used Date Smoking Tobacco: Never Assessed Comments Unknown Sex and Gender Information Value Date Recorded Sex Assigned at Not on file Legal Sex Female 2:44 AM COLD PRESS LOADER Gender Identity Not on file Sexual Orientation Not on file documented as of this encounter Plan of Treatment Not on file documented as of this encounter Visit Diagnoses Not on filedocumented in this encounter
--- OUTSIDE RECORDS SUMMARY | 2024-11-30 08:41 | XMS_ITS | Encounter Summary ---
Author Organization [facility] Address [address] [place] [address] Care Team Providers Care Spreader Operator Name Role Phone Unavailable Primary Care Provider Unavailabl e Encounter Details Date Type Department Care Team (Late st Contact Info) Description 06/06/2001 Outpatient Historical [facility] Pediatrics [place] [address] [facility] [facility] [address] [place] [address] Kashmir Gunn MD [address] [facility] [address] [place] [address] Social History Tobacco Use Types Packs/Day Years Used Date Smoking Tobacco: Never Assessed Comments Unknown Sex and Gender Information Value Date Recorded Sex Assigned at Not on file Legal Sex Female 2:44 AM HUB INVENTORY SPECIALIST Gender Identity Not on file Sexual Orientation Not on file documented as of this encounter Plan of Treatment Not on file documented as of this encounter Visit Diagnoses Not on filedocumented in this encounter
--- OUTSIDE RECORDS SUMMARY | 2024-11-30 08:41 | XMS_ITS | Encounter Summary ---
Author Organization [facility] Address [address] [place] [address] Care Team Providers Care Office Services Clerk Name Role Phone Unavailable Primary Care Provider Unavailabl e Encounter Details Date Type Department Care Team (Late st Contact Info) Description 08/25/2001 Outpatient Historical [facility] Pediatrics [place] [address] [facility] [address] [place] [address] Kashmir Gunn MD [address] [facility] [address] [place] [address] Social History Tobacco Use Types Packs/Day Years Used Date Smoking Tobacco: Never Assessed Comments Unknown Sex and Gender Information Value Date Recorded Sex Assigned at Not on file Legal Sex Female 2:44 AM FUR GLOSSER Gender Identity Not on file Sexual Orientation Not on file documented as of this encounter Plan of Treatment Not on file documented as of this encounter Visit Diagnoses Not on filedocumented in this encounter
--- OUTSIDE RECORDS SUMMARY | 2024-11-30 08:41 | XMS_ITS | Encounter Summary ---
Author Organization [facility] Address [address] [place] [address] Care Team Providers Care Pretzel Packer Name Role Phone Unavailable Primary Care Provider Unavailabl e Encounter Details Date Type Department Care Team (Late st Contact Info) Description 04/09/1998 Outpatient Historical [facility] Pediatrics [place] [address] [place] [address] Moises Guerrero Social History Tobacco Use Types Packs/Day Years Used Date Smoking Tobacco: Never Assessed Comments Unknown Sex and Gender Information Value Date Recorded Sex Assigned at Not on file Legal Sex Female 2:44 AM COPS Gender Identity Not on file Sexual Orientation Not on file documented as of this encounter Plan of Treatment Not on file documented as of this encounter Visit Diagnoses Not on filedocumented in this encounter
--- OUTSIDE RECORDS SUMMARY | 2024-11-30 08:41 | XMS_ITS | Encounter Summary ---
Author Organization [facility] Address [address] [place] [address] Care Team Providers Care Community Planner Name Role Phone Unavailable Primary Care Provider Unavailabl e Encounter Details Date Type Department Care Team (Late st Contact Info) Description 03/22/2002 Outpatient Historical [facility] Pediatrics [address] [place] [address] Murtaza Mcnulty MD [address] [place] [address] Social History Tobacco Use Types Packs/Day Years Used Date Smoking Tobacco: Never Assessed Comments Unknown Sex and Gender Information Value Date Recorded Sex Assigned at Not on file Legal Sex Female 2:44 AM REGISTERED OCCUPATIONAL THERAPIST Gender Identity Not on file Sexual Orientation Not on file documented as of this encounter Plan of Treatment Not on file documented as of this encounter Visit Diagnoses Not on filedocumented in this encounter
--- OUTSIDE RECORDS SUMMARY | 2024-11-30 08:41 | XMS_ITS | Encounter Summary ---
Author Organization [facility] Address [address] [place] [address] Care Team Providers Care Residential Mental Health Worker Name Role Phone Unavailable Primary Care Provider Unavailabl e Encounter Details Date Type Department Care Team (Late st Contact Info) Description 01/09/2004 Outpatient Historical [facility] Pediatrics [address] [place] [address] Murtaza Mcnulty MD [address] [place] [address] Social History Tobacco Use Types Packs/Day Years Used Date Smoking Tobacco: Never Assessed Comments Unknown Sex and Gender Information Value Date Recorded Sex Assigned at Not on file Legal Sex Female 2:44 AM HOT CELL TECHNICIAN Gender Identity Not on file Sexual Orientation Not on file documented as of this encounter Plan of Treatment Not on file documented as of this encounter Visit Diagnoses Not on filedocumented in this encounter
--- OUTSIDE RECORDS SUMMARY | 2024-11-30 08:41 | XMS_ITS | Encounter Summary ---
Author Organization [facility] Address [address] [place] [address] Care Team Providers Care Produce Inspector Name Role Phone Unavailable Primary Care Provider Unavailabl e Encounter Details Date Type Department Care Team (Late st Contact Info) Description 05/28/1998 Outpatient Historical [facility] Pediatrics [place] [address] [place] [address] Moises Guerrero Social History Tobacco Use Types Packs/Day Years Used Date Smoking Tobacco: Never Assessed Comments Unknown Sex and Gender Information Value Date Recorded Sex Assigned at Not on file Legal Sex Female 2:44 AM WASH TUB MACHINE 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
--- OUTSIDE RECORDS SUMMARY | 2024-11-30 08:41 | XMS_ITS | Encounter Summary ---
Author Organization [facility] Address [address] [place] [address] Care Team Providers Care Outpatient Program Coordinator Name Role Phone Unavailable Primary Care Provider Unavailabl e Encounter Details Date Type Department Care Team (Late st Contact Info) Description 11/04/2004 Outpatient Historical [facility] Pediatrics [address] [place] [address] Murtaza Mcnulty MD [address] [place] [address] Social History Tobacco Use Types Packs/Day Years Used Date Smoking Tobacco: Never Assessed Comments Unknown Sex and Gender Information Value Date Recorded Sex Assigned at Not on file Legal Sex Female 2:44 AM UNINDENTURED APPRENTICE Gender Identity Not on file Sexual Orientation Not on file documented as of this encounter Plan of Treatment Not on file documented as of this encounter Visit Diagnoses Not on filedocumented in this encounter
--- OUTSIDE RECORDS SUMMARY | 2024-11-30 08:41 | XMS_ITS | Encounter Summary ---
Author Organization [facility] Address [address] [place] [address] Care Team Providers Care Worm Grower Name Role Phone Unavailable Primary Care Provider Unavailabl e Encounter Details Date Type Department Care Team (Late st Contact Info) Description 02/12/2004 Outpatient Historical [facility] Pediatrics [address] [place] [address] Murtaza Mcnulty MD [address] [place] [address] Social History Tobacco Use Types Packs/Day Years Used Date Smoking Tobacco: Never Assessed Comments Unknown Sex and Gender Information Value Date Recorded Sex Assigned at Not on file Legal Sex Female 2:44 AM BOX BLANK MACHINE OPERATOR HELPER Gender Identity Not on file Sexual Orientation Not on file documented as of this encounter Plan of Treatment Not on file documented as of this encounter Visit Diagnoses Not on filedocumented in this encounter
--- OUTSIDE RECORDS SUMMARY | 2024-11-30 08:41 | XMS_ITS | Encounter Summary ---
Author Organization [facility] Address [address] [place] [address] Care Team Providers Care Pricing Analyst Name Role Phone Unavailable Primary Care Provider Unavailabl e Encounter Details Date Type Department Care Team (Late st Contact Info) Description 07/09/2004 Outpatient Historical [facility] Pediatrics [address] [place] [address] Murtaza Mcnulty MD [address] [place] [address] Social History Tobacco Use Types Packs/Day Years Used Date Smoking Tobacco: Never Assessed Comments Unknown Sex and Gender Information Value Date Recorded Sex Assigned at Not on file Legal Sex Female 2:44 AM ALUMINUM SHINGLE ROOFER Gender Identity Not on file Sexual Orientation Not on file documented as of this encounter Plan of Treatment Not on file documented as of this encounter Visit Diagnoses Not on filedocumented in this encounter
--- OUTSIDE RECORDS SUMMARY | 2024-11-30 08:41 | XMS_ITS | Encounter Summary ---
Author Organization [facility] Address [address] [place] [address] Care Team Providers Care Risk Adjustment Specialist Name Role Phone Unavailable Primary Care Provider Unavailabl e Encounter Details Date Type Department Care Team (Late st Contact Info) Description 05/06/2004 Outpatient Historical [facility] Pediatrics [address] [place] [address] Murtaza Mcnulty MD [address] [place] [address] Social History Tobacco Use Types Packs/Day Years Used Date Smoking Tobacco: Never Assessed Comments Unknown Sex and Gender Information Value Date Recorded Sex Assigned at Not on file Legal Sex Female 2:44 AM PARTNER Gender Identity Not on file Sexual Orientation Not on file documented as of this encounter Plan of Treatment Not on file documented as of this encounter Visit Diagnoses Not on filedocumented in this encounter
--- OUTSIDE RECORDS SUMMARY | 2024-11-30 08:41 | XMS_ITS | Encounter Summary ---
Author Organization [facility] Address [address] [place] [address] Care Team Providers Care Coverage Specialist Rn Name Role Phone Unavailable Primary Care Provider Unavailabl e Encounter Details Date Type Department Care Team (Late st Contact Info) Description 02/13/[address] [facility] Pediatrics [address] [place] [address] Murtaza Mcnulty MD [address] [place] [address] Social History Tobacco Use Types Packs/Day Years Used Date Smoking Tobacco: Never Assessed Comments Unknown Sex and Gender Information Value Date Recorded Sex Assigned at Not on file Legal Sex Female 2:44 AM HANDY 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
--- OUTSIDE RECORDS SUMMARY | 2024-11-30 08:41 | XMS_ITS | Encounter Summary ---
Author Organization [facility] Address [address] [place] [address] Care Team Providers Care Technical Delivery Manager Name Role Phone Unavailable Primary Care Provider Unavailabl e Encounter Details Date Type Department Care Team (Late st Contact Info) Description 07/10/1998 Outpatient Historical [facility] Pediatrics [place] [address] [place] [address] Moises Guerrero Social History Tobacco Use Types Packs/Day Years Used Date Smoking Tobacco: Never Assessed Comments Unknown Sex and Gender Information Value Date Recorded Sex Assigned at Not on file Legal Sex Female 2:44 AM BINDING FOLDER MACHINE Gender Identity Not on file Sexual Orientation Not on file documented as of this encounter Plan of Treatment Not on file documented as of this encounter Visit Diagnoses Not on filedocumented in this encounter
--- OUTSIDE RECORDS SUMMARY | 2024-11-30 08:41 | XMS_ITS | Encounter Summary ---
Author Organization [facility] Address [address] [place] [address] Care Team Providers Care Shuttle Hand Name Role Phone Unavailable Primary Care Provider Unavailabl e Encounter Details Date Type Department Care Team (Late st Contact Info) Description 02/06/2004 Outpatient Historical [facility] Pediatrics [address] [place] [address] Murtaza Mcnulty MD [address] [place] [address] Social History Tobacco Use Types Packs/Day Years Used Date Smoking Tobacco: Never Assessed Comments Unknown Sex and Gender Information Value Date Recorded Sex Assigned at Not on file Legal Sex Female 2:44 AM REHAB OFFICE COORDINATOR Gender Identity Not on file Sexual Orientation Not on file documented as of this encounter Plan of Treatment Not on file documented as of this encounter Visit Diagnoses Not on filedocumented in this encounter
[2024-11-30 08:57] LABS: Add Urine Microscopic? YES; Appearance Urine Cloudy (Clear); Glucose Urine UA Negative (Negative); Leukocyte Esterase Ur Trace LEU/UL (Negative); Nitrate Urine Negative (Negative); Non Pathogenic Casts 0-2; Specific Grav Ur 1.014 (1.001-1.035)
--- NOTE | 2024-11-30 10:34 | OBADM ---
This patient, Charis ePres, admitted to the OB room OB Post 117 for observation. Patient/family oriented to hospital policies and general routines including ID bracelet, bed and alarms, visiting hours, pain management, procedures, bathroom and other care routines, personal items, smoking policy, room service/diet, and visiting hours. Patient/Family are encouraged to report perceived risks to care and to ask questions if they do not understand what they are told or what they should do.
--- NOTE | 2024-11-30 10:55 | PC.NURSE ---
0830- Patient arrives to OB unit from the lab. Patient was in the lab getting her glucose test done and stated she was feeling contractions. On arrival, RN palpated abdomen, abdomen is soft to palpation. Patient denies any complications this . Patient states she feels a contraction occasionally and they last about 30 second to 1 minute. Patient also states that she will occasionally feel a shooting pain to her vagina. Patient states sometimes when she gets up, it does get worse. RN asked about an abdominal binder, patient states she has one, but that it hurts her back. Patient denies any vaginal bleeding or leaking of fluid. Patient states she has good movement. 1031- RN notified Dr. Pretty of patient arrival and patient complaints. RN notified MD of FHT tracing as well as no contractions. RN notified MD that RN palpated abdomen and that it does feel soft to palpation. RN notified MD of urine results as well as VS. MD gave orders to d/c patient and suggest a different abdominal binder for patient. 1040- RN at bedside discussing plan of care with patient, patient agrees with plan of care.
--- NOTE | 2024-12-04 00:58 | P.PNOB_ITS ---
OB - Triage/Final Diagnosis Visit Information Reason for evaluation: threatened labor Comments/Additional reasons for admission: I have assessed the risk for this patient, Charis Peres, and determined that she would benefit from observation care. Evaluation Laboratory results: Laboratory Tests 11/30/24 08:48 Urine Color Yellow Urine Appearance Cloudy H Urine pH 6.0 Ur Specific Irvona 1.014 Urine Protein Negative Urine Glucose (UA) Negative Urine Ketones Negative Ur Blood (Man) Negative Urine Nitrate Negative Urine Bilirubin Negative Urine Urobilinogen 0.2 Leukocyte Esterase Rfl Trace H Urine RBC 0-2 Urine WBC 6-10 H Ur Squamous Epith Cells Moderate Urine Bacteria Rare Urine Casts 0-2
== END 2024-11-30 10:50 | disposition home or self-care (01) ==
PROVIDERS: Admitting Provider Obstetrics & Gynecology Gynecology; PCP Emergency Medicine; Visit Provider Obstetrics & Gynecology Gynecology
DX: O47.03 False labor before 37 completed weeks of gestation, third trimester (principal); Z3A.31 31 weeks gestation of pregnancy
CPT/HCPCS: 81001; G0378; G0379

== ENCOUNTER 2024-12-07 12:58 | Outpatient (RCR) | payer OTHER, SELFPAY | END 2025-02-26 12:49 | disposition home or self-care (01) | LOC: ANHDMC 12:58 | PROVIDERS: PCP Emergency Medicine | DX: O24.419 Gestational diabetes mellitus in pregnancy, unspecified control (principal); Z3A.00 Weeks of gestation of pregnancy not specified; Z71.89 Other specified counseling | CPT/HCPCS: G0108 ==

== ENCOUNTER 2025-01-19 09:03 | Outpatient (CLI) | payer OTHER, SELFPAY ==
[2025-01-19] VITALS (11 sets, daily range): BP systolic 120–125; BP diastolic 72–80; PULSE 94–114; TEMP 36.7
--- OUTSIDE RECORDS SUMMARY | 2025-01-19 09:13 | XMS_ITS | Encounter Summary ---
Author Organization [facility] Address [address] [place] [address] Care Team Providers Care Digital Marketing Officer Name Role Phone Unavailable Primary Care Provider Unavailabl e Encounter Details Date Type Department Care Team (Late st Contact Info) Description 08/23/1998 Outpatient Historical [facility] Pediatrics [place] [address] [place] [address] Moises Guerrero Social History Tobacco Use Types Packs/Day Years Used Date Smoking Tobacco: Never Assessed Comments Unknown Sex and Gender Information Value Date Recorded Sex Assigned at Not on file Legal Sex Female 2:44 AM MACHINE SHOP REPAIR TECHNICIAN Gender Identity Not on file Sexual Orientation Not on file documented as of this encounter Plan of Treatment Not on file documented as of this encounter Visit Diagnoses Not on filedocumented in this encounter
--- OUTSIDE RECORDS SUMMARY | 2025-01-19 09:13 | XMS_ITS | Encounter Summary ---
Author Organization [facility] Address [address] [place] [address] Care Team Providers Care Bird Cage Assembler Name Role Phone Unavailable Primary Care Provider Unavailabl e Encounter Details Date Type Department Care Team (Late st Contact Info) Description 04/29/1999 Outpatient Historical [facility] Pediatrics [place] [address] [place] [address] Moises Guerrero Social History Tobacco Use Types Packs/Day Years Used Date Smoking Tobacco: Never Assessed Comments Unknown Sex and Gender Information Value Date Recorded Sex Assigned at Not on file Legal Sex Female 2:44 AM HEARING THERAPY DIRECTOR Gender Identity Not on file Sexual Orientation Not on file documented as of this encounter Plan of Treatment Not on file documented as of this encounter Visit Diagnoses Not on filedocumented in this encounter
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
--- OUTSIDE RECORDS SUMMARY | 2025-01-19 09:13 | XMS_ITS | Encounter Summary ---
Author Organization [facility] Address [address] [place] [address] Care Team Providers Care Delinquency Counselor Name Role Phone Unavailable Primary Care Provider Unavailabl e Encounter Details Date Type Department Care Team (Late st Contact Info) Description 12/17/1998 Outpatient Historical [facility] Pediatrics [place] [address] [place] [address] Moises Guerrero Social History Tobacco Use Types Packs/Day Years Used Date Smoking Tobacco: Never Assessed Comments Unknown Sex and Gender Information Value Date Recorded Sex Assigned at Not on file Legal Sex Female 2:44 AM AUDIO TECHNICIAN Gender Identity Not on file Sexual Orientation Not on file documented as of this encounter Plan of Treatment Not on file documented as of this encounter Visit Diagnoses Not on filedocumented in this encounter
--- OUTSIDE RECORDS SUMMARY | 2025-01-19 09:13 | XMS_ITS | Encounter Summary ---
Author Organization [facility] Address [address] [place] [address] Care Team Providers Care Group Marketing Vp Name Role Phone Unavailable Primary Care Provider Unavailabl e Encounter Details Date Type Department Care Team (Late st Contact Info) Description 08/15/[address] [facility] Pediatrics [place] [address] [place] [address] Moises Guerrero Social History Tobacco Use Types Packs/Day Years Used Date Smoking Tobacco: Never Assessed Comments Unknown Sex and Gender Information Value Date Recorded Sex Assigned at Not on file Legal Sex Female 2:44 AM AUTOMOBILE AND PROPERTY UNDERWRITER Gender Identity Not on file Sexual Orientation Not on file documented as of this encounter Plan of Treatment Not on file documented as of this encounter Visit Diagnoses Not on filedocumented in this encounter
--- OUTSIDE RECORDS SUMMARY | 2025-01-19 09:13 | XMS_ITS | Encounter Summary ---
Author Organization [facility] Address [address] [place] [address] Care Team Providers Care Bail Agent Name Role Phone Unavailable Primary Care Provider Unavailabl e Encounter Details Date Type Department Care Team (Late st Contact Info) Description 06/12/1999 Outpatient Historical [facility] Pediatrics [place] [address] [place] [address] Moises Guerrero Social History Tobacco Use Types Packs/Day Years Used Date Smoking Tobacco: Never Assessed Comments Unknown Sex and Gender Information Value Date Recorded Sex Assigned at Not on file Legal Sex Female 2:44 AM SCRAP SEPARATOR Gender Identity Not on file Sexual Orientation Not on file documented as of this encounter Plan of Treatment Not on file documented as of this encounter Visit Diagnoses Not on filedocumented in this encounter
--- OUTSIDE RECORDS SUMMARY | 2025-01-19 09:13 | XMS_ITS | Encounter Summary ---
Author Organization [facility] Address [address] [place] [address] Care Team Providers Care Director Of Integrated Marketing Name Role Phone Unavailable Primary Care Provider Unavailabl e Encounter Details Date Type Department Care Team (Late st Contact Info) Description 09/21/2000 Outpatient Historical [facility] Pediatrics [place] [address] [facility] [address] [place] [address] Edgar Morton MD [address] [facility] [address] [place] [address] Social History Tobacco Use Types Packs/Day Years Used Date Smoking Tobacco: Never Assessed Comments Unknown Sex and Gender Information Value Date Recorded Sex Assigned at Not on file Legal Sex Female 2:44 AM AUTOMATIC DATA PROCESSING PLANNER Gender Identity Not on file Sexual Orientation Not on file documented as of this encounter Plan of Treatment Not on file documented as of this encounter Visit Diagnoses Not on filedocumented in this encounter
--- OUTSIDE RECORDS SUMMARY | 2025-01-19 09:13 | XMS_ITS | Encounter Summary ---
Author Organization [facility] Address [address] [place] [address] Care Team Providers Care Audio Production Manager Name Role Phone Unavailable Primary Care Provider Unavailabl e Encounter Details Date Type Department Care Team (Late st Contact Info) Description 10/25/1998 Outpatient Historical [facility] Pediatrics [place] [address] [place] [address] Moises Guerrero Social History Tobacco Use Types Packs/Day Years Used Date Smoking Tobacco: Never Assessed Comments Unknown Sex and Gender Information Value Date Recorded Sex Assigned at Not on file Legal Sex Female 2:44 AM CLINICAL LAB SCIENTIST Gender Identity Not on file Sexual Orientation Not on file documented as of this encounter Plan of Treatment Not on file documented as of this encounter Visit Diagnoses Not on filedocumented in this encounter
--- OUTSIDE RECORDS SUMMARY | 2025-01-19 09:13 | XMS_ITS | Encounter Summary ---
Author Organization [facility] Address [address] [place] [address] Care Team Providers Care Ceo And Founder Name Role Phone Unavailable Primary Care Provider Unavailabl e Encounter Details Date Type Department Care Team (Late st Contact Info) Description 01/07/1998 Outpatient Historical [facility] Pediatrics [place] [address] [place] [address] Moises Guerrero Social History Tobacco Use Types Packs/Day Years Used Date Smoking Tobacco: Never Assessed Comments Unknown Sex and Gender Information Value Date Recorded Sex Assigned at Not on file Legal Sex Female 2:44 AM FOLDER MACHINE ADJUSTER Gender Identity Not on file Sexual Orientation Not on file documented as of this encounter Plan of Treatment Not on file documented as of this encounter Visit Diagnoses Not on filedocumented in this encounter
--- OUTSIDE RECORDS SUMMARY | 2025-01-19 09:13 | XMS_ITS | Encounter Summary ---
Author Organization [facility] Address [address] [place] [address] Care Team Providers Care Recruiter Manager Name Role Phone Unavailable Primary Care Provider Unavailabl e Encounter Details Date Type Department Care Team (Late st Contact Info) Description 12/03/1998 Outpatient Historical [facility] Pediatrics [place] [address] [place] [address] Moises Guerrero Social History Tobacco Use Types Packs/Day Years Used Date Smoking Tobacco: Never Assessed Comments Unknown Sex and Gender Information Value Date Recorded Sex Assigned at Not on file Legal Sex Female 2:44 AM TOPSTITCHER LOCKSTITCH Gender Identity Not on file Sexual Orientation Not on file documented as of this encounter Plan of Treatment Not on file documented as of this encounter Visit Diagnoses Not on filedocumented in this encounter
--- OUTSIDE RECORDS SUMMARY | 2025-01-19 09:13 | XMS_ITS | Encounter Summary ---
Author Organization [facility] Address [address] [place] [address] Care Team Providers Care Bag Sorter Name Role Phone Unavailable Primary Care Provider Unavailabl e Encounter Details Date Type Department Care Team (Late st Contact Info) Description 04/03/2000 Outpatient Historical [facility] Pediatrics [place] [address] [place] [address] Luis Conklin MD [address] [place] [address] Social History Tobacco Use Types Packs/Day Years Used Date Smoking Tobacco: Never Assessed Comments Unknown Sex and Gender Information Value Date Recorded Sex Assigned at Not on file Legal Sex Female 2:44 AM INSTRUMENT STERILIZER Gender Identity Not on file Sexual Orientation Not on file documented as of this encounter Plan of Treatment Not on file documented as of this encounter Visit Diagnoses Not on filedocumented in this encounter
--- OUTSIDE RECORDS SUMMARY | 2025-01-19 09:13 | XMS_ITS | Encounter Summary ---
Author Organization [facility] Address [address] [place] [address] Care Team Providers Care Caul Dresser Name Role Phone Unavailable Primary Care Provider Unavailabl e Encounter Details Date Type Department Care Team (Late st Contact Info) Description 01/06/1999 Outpatient Historical [facility] Pediatrics [place] [address] [place] [address] Moises Guerrero Social History Tobacco Use Types Packs/Day Years Used Date Smoking Tobacco: Never Assessed Comments Unknown Sex and Gender Information Value Date Recorded Sex Assigned at Not on file Legal Sex Female 2:44 AM GROCERY 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
--- OUTSIDE RECORDS SUMMARY | 2025-01-19 09:13 | XMS_ITS | Encounter Summary ---
Author Organization [facility] Address [address] [place] [address] Care Team Providers Care Balance Wheel Facer Name Role Phone Unavailable Primary Care Provider Unavailabl e Encounter Details Date Type Department Care Team (Late st Contact Info) Description 06/01/2000 Outpatient Historical [facility] Pediatrics [place] [address] [facility] [facility] [address] [place] [address] Kashmir Gunn MD [address] [facility] [address] [place] [address] Social History Tobacco Use Types Packs/Day Years Used Date Smoking Tobacco: Never Assessed Comments Unknown Sex and Gender Information Value Date Recorded Sex Assigned at Not on file Legal Sex Female 2:44 AM DUPLICATOR PUNCH SET UP 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
--- OUTSIDE RECORDS SUMMARY | 2025-01-19 09:13 | XMS_ITS | Clinical Summary ---
Author Organization [facility] [place] Address [address] [place] [address] Phone Care Team Providers Care Squaring Shear Operator Name Role Phone Unavailable Primary Care Provider Unavailabl e Allergies Active Allergy Reactions Criticality Noted Date Comments Sulfa (Sulfonamide Antibiotics) Rash High 11/30 Medications Norethindrn A-E estradiol-Iron (MICROGESTIN FE 1.5/, ,) 1.5 mg-30 mcg (21)/75 mg (7) tablet [...] on file Legal Sex Female 2:44 AM MICROBIOLOGY QUALITY CONTROL TECHNICIAN Gender Identity Not on file Sexual Orientation Not on file Occupation Industry Job Start Date Job End Date Not on file Not on file Not on file Not on file Last Filed Vital Signs Vital Sign Reading Time Taken Comments Blood Pressure 110/80 01/28/2016 11:54 AM MICROBIOLOGY QUALITY CONTROL TECHNICIAN Pulse 101 01/28/2016 11:54 AM MICROBIOLOGY QUALITY CONTROL TECHNICIAN Temperature 37.1 C (98.7 F) 01/28/2016 11:54 AM MICROBIOLOGY QUALITY CONTROL TECHNICIAN Respiratory Rate 18 01/28/2016 11:54 AM MICROBIOLOGY QUALITY CONTROL TECHNICIAN Oxygen Saturation 97% 01/28/2016 11:54 AM MICROBIOLOGY QUALITY CONTROL TECHNICIAN Inhaled Oxygen Concentration - - Weight 61.7 kg (136 lb) 01/28/2016 11:54 AM MICROBIOLOGY QUALITY CONTROL TECHNICIAN Height 160 cm (5' 3) 01/28/2016 11:54 AM MICROBIOLOGY QUALITY CONTROL TECHNICIAN Body Mass Index 24.09 01/28/2016 11:54 AM MICROBIOLOGY QUALITY CONTROL TECHNICIAN Plan of Treatment Health Maintenance Due Date Last Done Comments DTAP/TDAP/TD VACCINES (1 - Tdap) 2016 HEPATITIS B VACCINES (1 of 3 - 19+ 3-dose series) 10/31 CERVICAL CANCER SCREENING 2018 HPV/Cotest (21-29) 2018 PAP SMEAR 2018 INFLUENZA VACCINE (#1) 2024 HPV VACCINES (1 - 3-dose SCDM series) 2024
--- OUTSIDE RECORDS SUMMARY | 2025-01-19 09:13 | XMS_ITS | Encounter Summary ---
Author Organization [facility] Address [address] [place] [address] Care Team Providers Care Bus Operator Name Role Phone Unavailable Primary Care Provider Unavailabl e Encounter Details Date Type Department Care Team (Late st Contact Info) Description 03/26/2000 Outpatient Historical [facility] Pediatrics [place] [address] [facility] [address] [place] [address] Kashmir Gunn MD [address] [facility] [address] [place] [address] Social History Tobacco Use Types Packs/Day Years Used Date Smoking Tobacco: Never Assessed Comments Unknown Sex and Gender Information Value Date Recorded Sex Assigned at Not on file Legal Sex Female 2:44 AM ACCOUNT RECEIVABLE ASSOCIATE Gender Identity Not on file Sexual Orientation Not on file documented as of this encounter Plan of Treatment Not on file documented as of this encounter Visit Diagnoses Not on filedocumented in this encounter
--- OUTSIDE RECORDS SUMMARY | 2025-01-19 09:13 | XMS_ITS | Encounter Summary ---
Author Organization [facility] Address [address] [place] [address] Care Team Providers Care Tile Molder Hand Name Role Phone Unavailable Primary Care Provider Unavailabl e Encounter Details Date Type Department Care Team (Late st Contact Info) Description 07/25/1999 Outpatient Historical [facility] Pediatrics [place] [address] [place] [address] Moises Guerrero Social History Tobacco Use Types Packs/Day Years Used Date Smoking Tobacco: Never Assessed Comments Unknown Sex and Gender Information Value Date Recorded Sex Assigned at Not on file Legal Sex Female 2:44 AM LEARNING ENGINEER Gender Identity Not on file Sexual Orientation Not on file documented as of this encounter Plan of Treatment Not on file documented as of this encounter Visit Diagnoses Not on filedocumented in this encounter
--- OUTSIDE RECORDS SUMMARY | 2025-01-19 09:13 | XMS_ITS | Encounter Summary ---
Author Organization [facility] Address [address] [place] [address] Care Team Providers Care Wrapper Operator Name Role Phone Unavailable Primary Care Provider Unavailabl e Encounter Details Date Type Department Care Team (Late st Contact Info) Description 05/29/1999 Outpatient Historical [facility] Pediatrics [place] [address] [place] [address] Moises Guerrero Social History Tobacco Use Types Packs/Day Years Used Date Smoking Tobacco: Never Assessed Comments Unknown Sex and Gender Information Value Date Recorded Sex Assigned at Not on file Legal Sex Female 2:44 AM PROFESSOR OF PHYSICAL EDUCATION Gender Identity Not on file Sexual Orientation Not on file documented as of this encounter Plan of Treatment Not on file documented as of this encounter Visit Diagnoses Not on filedocumented in this encounter
--- OUTSIDE RECORDS SUMMARY | 2025-01-19 09:13 | XMS_ITS | Encounter Summary ---
Author Organization [facility] Address [address] [place] [address] Care Team Providers Care Housefellow Name Role Phone Unavailable Primary Care Provider Unavailabl e Encounter Details Date Type Department Care Team (Late st Contact Info) Description 01/14/1998 Outpatient Historical [facility] Pediatrics [place] [address] [place] [address] Moises Guerrero Social History Tobacco Use Types Packs/Day Years Used Date Smoking Tobacco: Never Assessed Comments Unknown Sex and Gender Information Value Date Recorded Sex Assigned at Not on file Legal Sex Female 2:44 AM FIELD SUPERINTENDENT Gender Identity Not on file Sexual Orientation Not on file documented as of this encounter Plan of Treatment Not on file documented as of this encounter Visit Diagnoses Not on filedocumented in this encounter
--- OUTSIDE RECORDS SUMMARY | 2025-01-19 09:13 | XMS_ITS | Encounter Summary ---
Author Organization [facility] Address [address] [place] [address] Care Team Providers Care Inside Sales Specialist Name Role Phone Unavailable Primary Care Provider Unavailabl e Encounter Details Date Type Department Care Team (Late st Contact Info) Description 02/05/2000 Outpatient Historical [facility] Pediatrics [place] [address] [facility] [address] [place] [address] Kashmir Gunn MD [address] [facility] [address] [place] [address] Social History Tobacco Use Types Packs/Day Years Used Date Smoking Tobacco: Never Assessed Comments Unknown Sex and Gender Information Value Date Recorded Sex Assigned at Not on file Legal Sex Female 2:44 AM REPLENISHMENT ASSOCIATE Gender Identity Not on file Sexual Orientation Not on file documented as of this encounter Plan of Treatment Not on file documented as of this encounter Visit Diagnoses Not on filedocumented in this encounter
--- OUTSIDE RECORDS SUMMARY | 2025-01-19 09:13 | XMS_ITS | Encounter Summary ---
Author Organization [facility] Address [address] [place] [address] Care Team Providers Care Program Analyst Name Role Phone Unavailable Primary Care Provider Unavailabl e Encounter Details Date Type Department Care Team (Late st Contact Info) Description 08/23/1998 Outpatient Historical [facility] Pediatrics [place] [address] [place] [address] Moises Guerrero Social History Tobacco Use Types Packs/Day Years Used Date Smoking Tobacco: Never Assessed Comments Unknown Sex and Gender Information Value Date Recorded Sex Assigned at Not on file Legal Sex Female 2:44 AM TECHNICAL ARCHITECT Gender Identity Not on file Sexual Orientation Not on file documented as of this encounter Plan of Treatment Not on file documented as of this encounter Visit Diagnoses Not on filedocumented in this encounter
--- OUTSIDE RECORDS SUMMARY | 2025-01-19 09:13 | XMS_ITS | Encounter Summary ---
Author Organization [facility] Address [address] [place] [address] Care Team Providers Care Hearing Consultant Name Role Phone Unavailable Primary Care Provider Unavailabl e Encounter Details Date Type Department Care Team (Late st Contact Info) Description 08/11/1999 Outpatient Historical [facility] Pediatrics [place] [address] [place] [address] Moises Guerrero Social History Tobacco Use Types Packs/Day Years Used Date Smoking Tobacco: Never Assessed Comments Unknown Sex and Gender Information Value Date Recorded Sex Assigned at Not on file Legal Sex Female 2:44 AM COURTESY DRIVER Gender Identity Not on file Sexual Orientation Not on file documented as of this encounter Plan of Treatment Not on file documented as of this encounter Visit Diagnoses Not on filedocumented in this encounter
--- OUTSIDE RECORDS SUMMARY | 2025-01-19 09:13 | XMS_ITS | Clinical Summary ---
Author Organization [facility] Address [address] [place] [address] Phone Care Team Providers Care Online Advertising Analyst Name Role Phone Varun Chavez MD Primary [...] Virus (HCV) Screening 1997 TdaP Immunization 1997 Varicella Immunization (1 of 2 - 13+ 2-dose series) 2010 Hepatitis B Immunization (1 of 3 - 19+ 3-dose series) 2016 Pap Smear 2018 Influenza Immunization (#1) 2024 SARS-COV-2 Immunization ( - 2024- season) 2024 Human Papillomavirus (HPV) Immunization (1 - 3-dose SCDM series) 2024 Respiratory Syncytial Virus (RSV) Immunization (Adult) [...] making a change Department associated with goal: [facility] Steps to achieve goal: [...] track(2021 2:25 PM CDT) Yes Sandra Rich, [facility] Insurance MEDICAID [employer] Care Teams Online Advertising Analyst Relationship Specialty Start Date End Date Varun Chavez MD PCP - General Internal Medicine 11/13/21
--- OUTSIDE RECORDS SUMMARY | 2025-01-19 09:13 | XMS_ITS | Encounter Summary ---
Author Organization [facility] Address [address] [place] [address] Care Team Providers Care Auditing Manager Name Role Phone Unavailable Primary Care Provider Unavailabl e Encounter Details Date Type Department Care Team (Late st Contact Info) Description 11/28/1998 Outpatient Historical [facility] Pediatrics [place] [address] [place] [address] Moises Guerrero Social History Tobacco Use Types Packs/Day Years Used Date Smoking Tobacco: Never Assessed Comments Unknown Sex and Gender Information Value Date Recorded Sex Assigned at Not on file Legal Sex Female 2:44 AM RECORD CENTER SPECIALIST Gender Identity Not on file Sexual Orientation Not on file documented as of this encounter Plan of Treatment Not on file documented as of this encounter Visit Diagnoses Not on filedocumented in this encounter
--- OUTSIDE RECORDS SUMMARY | 2025-01-19 09:13 | XMS_ITS | Encounter Summary ---
Author Organization [facility] Address [address] [place] [address] Care Team Providers Care Toy Trains And Accessories Salesperson Name Role Phone Unavailable Primary Care Provider Unavailabl e Encounter Details Date Type Department Care Team (Late st Contact Info) Description 09/06/1998 Outpatient Historical [facility] Pediatrics [place] [address] [place] [address] Moises Guerrero Social History Tobacco Use Types Packs/Day Years Used Date Smoking Tobacco: Never Assessed Comments Unknown Sex and Gender Information Value Date Recorded Sex Assigned at Not on file Legal Sex Female 2:44 AM CANE WEIGHER HELPER Gender Identity Not on file Sexual Orientation Not on file documented as of this encounter Plan of Treatment Not on file documented as of this encounter Visit Diagnoses Not on filedocumented in this encounter
--- OUTSIDE RECORDS SUMMARY | 2025-01-19 09:13 | XMS_ITS | Encounter Summary ---
Author Organization [facility] Address [address] [place] [address] Care Team Providers Care First Aid Nurse Name Role Phone Unavailable Primary Care Provider Unavailabl e Encounter Details Date Type Department Care Team (Late st Contact Info) Description 11/28/1998 Outpatient Historical [facility] Pediatrics [place] [address] [place] [address] Moises Guerrero Social History Tobacco Use Types Packs/Day Years Used Date Smoking Tobacco: Never Assessed Comments Unknown Sex and Gender Information Value Date Recorded Sex Assigned at Not on file Legal Sex Female 2:44 AM PAINT SPRAY TENDER Gender Identity Not on file Sexual Orientation Not on file documented as of this encounter Plan of Treatment Not on file documented as of this encounter Visit Diagnoses Not on filedocumented in this encounter
--- OUTSIDE RECORDS SUMMARY | 2025-01-19 09:13 | XMS_ITS | Encounter Summary ---
Author Organization [facility] Address [address] [place] [address] Care Team Providers Care Education And Training Coordinator Name Role Phone Unavailable Primary Care Provider Unavailabl e Encounter Details Date Type Department Care Team (Late st Contact Info) Description 01/05/2000 Outpatient Historical [facility] Pediatrics [place] [address] [employer] [facility] [address] [place] [address] Kashmir Gunn MD [address] [facility] [address] [place] [address] Social History Tobacco Use Types Packs/Day Years Used Date Smoking Tobacco: Never Assessed Comments Unknown Sex and Gender Information Value Date Recorded Sex Assigned at Not on file Legal Sex Female 2:44 AM PRINTED CIRCUIT PHOTOGRAPHER Gender Identity Not on file Sexual Orientation Not on file documented as of this encounter Plan of Treatment Not on file documented as of this encounter Visit Diagnoses Not on filedocumented in this encounter
--- OUTSIDE RECORDS SUMMARY | 2025-01-19 09:14 | XMS_ITS | Encounter Summary ---
Author Organization [facility] Address [address] [place] [address] Care Team Providers Care Airborne Mission Systems Name Role Phone Unavailable Primary Care Provider Unavailabl e Encounter Details Date Type Department Care Team (Late st Contact Info) Description 05/28/1998 Outpatient Historical [facility] Pediatrics [place] [address] [place] [address] Moises Guerrero Social History Tobacco Use Types Packs/Day Years Used Date Smoking Tobacco: Never Assessed Comments Unknown Sex and Gender Information Value Date Recorded Sex Assigned at Not on file Legal Sex Female 2:44 AM AUTOMOTIVE LIGHT 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
--- OUTSIDE RECORDS SUMMARY | 2025-01-19 09:14 | XMS_ITS | Patient Health Record ---
Author Organization [facility] Address [address] [place], [place] [id number] Support Name Relationship Address Phone MAGALIE MOYA Emergency Contact Unknown [phone] ANNIKA ALVARES Guarantor Unknown [phone] Reason For Referral No Information Social History Social History Additional Details Category Social Info Options Details Migrated Social History Migrated Social History History of tobacco use : , Smoking Status : Never smoked Plan Of Treatment No Information Insurance Providers Payer Name Payer Address Payer Phone Subscriber Number Group Number Insured Name Patient Relationship to Insured Coverage Start Date Coverage End Date [facility] [address] [place] [phone] [id number] ANNIKA ALVARES Self - patient is the insured
--- OUTSIDE RECORDS SUMMARY | 2025-01-19 09:14 | XMS_ITS | Encounter Summary ---
Author Organization [facility] Address [address] [place] [address] Care Team Providers Care Concrete Finishing Machine Operator Name Role Phone Unavailable Primary Care Provider Unavailabl e Encounter Details Date Type Department Care Team (Late st Contact Info) Description 05/31/1998 Outpatient Historical [facility] Pediatrics [address] [place] [address] Moises Guerrero Social History Tobacco Use Types Packs/Day Years Used Date Smoking Tobacco: Never Assessed Comments Unknown Sex and Gender Information Value Date Recorded Sex Assigned at Not on file Legal Sex Female 2:44 AM RADIOLOGIST PHYSICIAN Gender Identity Not on file Sexual Orientation Not on file documented as of this encounter Plan of Treatment Not on file documented as of this encounter Procedures Procedure Name Priority Date/Time Associated Diagnosis Comments CHG HEPATITIS B VACCINE PED ADOL IM 3 DOSE VFC 05/31/1998 12:00 AM RADIOLOGIST PHYSICIAN CHG DTAP VACCINE <7 YO IM VFC 05/31/1998 12:00 AM RADIOLOGIST PHYSICIAN documented in this encounter Visit Diagnoses Not on filedocumented in this encounter
--- OUTSIDE RECORDS SUMMARY | 2025-01-19 09:14 | XMS_ITS | Encounter Summary ---
Author Organization [facility] Address [address] [place] [address] Care Team Providers Care Canteen Operator Name Role Phone Unavailable Primary Care Provider Unavailabl e Encounter Details Date Type Department Care Team (Late st Contact Info) Description 11/04/2004 Outpatient Historical [facility] Pediatrics [address] [place] [address] Murtaza Mcnulty MD [address] [place] [address] Social History Tobacco Use Types Packs/Day Years Used Date Smoking Tobacco: Never Assessed Comments Unknown Sex and Gender Information Value Date Recorded Sex Assigned at Not on file Legal Sex Female 2:44 AM DEPUTY [place] MARSHAL Gender Identity Not on file Sexual Orientation Not on file documented as of this encounter Plan of Treatment Not on file documented as of this encounter Visit Diagnoses Not on filedocumented in this encounter
--- OUTSIDE RECORDS SUMMARY | 2025-01-19 09:14 | XMS_ITS | Encounter Summary ---
Author Organization [facility] Address [address] [place] [address] Care Team Providers Care Silver Solution Mixer Name Role Phone Unavailable Primary Care Provider Unavailabl e Encounter Details Date Type Department Care Team (Late st Contact Info) Description 11/15/2003 Outpatient Historical [facility] Pediatrics [place] [address] [employer] [facility] [address] [place] [address] Kashmir Gunn MD [address] [facility] [address] [place] [address] Social History Tobacco Use Types Packs/Day Years Used Date Smoking Tobacco: Never Assessed Comments Unknown Sex and Gender Information Value Date Recorded Sex Assigned at Not on file Legal Sex Female 2:44 AM LOAN COORDINATOR Gender Identity Not on file Sexual Orientation Not on file documented as of this encounter Plan of Treatment Not on file documented as of this encounter Procedures Procedure Name Priority Date/Time Associated Diagnosis Comments CHG POLIOVIRUS IPV [facility] 4 12:00 AM CDT CHG MMR VACCINE SQ [facility] 4 12:00 AM CDT CHG DTAP VACCINE <7 YO IM VFC 11/15/2003 12:00 AM CDT documented in this encounter Visit Diagnoses Not on filedocumented in this encounter
--- OUTSIDE RECORDS SUMMARY | 2025-01-19 09:14 | XMS_ITS | Encounter Summary ---
Author Organization [facility] Address [address] [place] [address] Care Team Providers Care Crop Specialist Name Role Phone Unavailable Primary Care Provider Unavailabl e Encounter Details Date Type Department Care Team (Late st Contact Info) Description 03/05/2001 Outpatient Historical [facility] Pediatrics [place] [address] [place] [address] Luis Conklin MD [address] [place] [address] Social History Tobacco Use Types Packs/Day Years Used Date Smoking Tobacco: Never Assessed Comments Unknown Sex and Gender Information Value Date Recorded Sex Assigned at Not on file Legal Sex Female 2:44 AM MANAGER RETIREMENT Gender Identity Not on file Sexual Orientation Not on file documented as of this encounter Plan of Treatment Not on file documented as of this encounter Visit Diagnoses Not on filedocumented in this encounter
--- OUTSIDE RECORDS SUMMARY | 2025-01-19 09:14 | XMS_ITS | Encounter Summary ---
Author Organization [facility] Address [address] [place] [address] Care Team Providers Care Wind Operations Manager Name Role Phone Unavailable Primary Care Provider Unavailabl e Encounter Details Date Type Department Care Team (Late st Contact Info) Description 02/06/2004 Outpatient Historical [facility] Pediatrics [address] [place] [address] Murtaza Mcnulty MD [address] [place] [address] Social History Tobacco Use Types Packs/Day Years Used Date Smoking Tobacco: Never Assessed Comments Unknown Sex and Gender Information Value Date Recorded Sex Assigned at Not on file Legal Sex Female 2:44 AM WRAPPER LAYER Gender Identity Not on file Sexual Orientation Not on file documented as of this encounter Plan of Treatment Not on file documented as of this encounter Visit Diagnoses Not on filedocumented in this encounter
--- OUTSIDE RECORDS SUMMARY | 2025-01-19 09:14 | XMS_ITS | Encounter Summary ---
Author Organization [facility] Address [address] [place] [address] Care Team Providers Care Radio Station Audio Engineer Name Role Phone Unavailable Primary Care Provider Unavailabl e Encounter Details Date Type Department Care Team (Late st Contact Info) Description 08/25/2001 Outpatient Historical [facility] Pediatrics [place] [address] [facility] [address] [place] [address] Kashmir Gunn MD [address] [facility] [address] [place] [address] Social History Tobacco Use Types Packs/Day Years Used Date Smoking Tobacco: Never Assessed Comments Unknown Sex and Gender Information Value Date Recorded Sex Assigned at Not on file Legal Sex Female 2:44 AM IMPROVEMENT ENGINEER Gender Identity Not on file Sexual Orientation Not on file documented as of this encounter Plan of Treatment Not on file documented as of this encounter Visit Diagnoses Not on filedocumented in this encounter
--- OUTSIDE RECORDS SUMMARY | 2025-01-19 09:14 | XMS_ITS | Encounter Summary ---
Author Organization [facility] Address [address] [place] [address] Care Team Providers Care Light Fixture Servicer Name Role Phone Unavailable Primary Care Provider Unavailabl e Encounter Details Date Type Department Care Team (Late st Contact Info) Description 02/13/2003 Outpatient Historical [facility] Pediatrics [address] [place] [address] Murtaza Mcnulty MD [address] [place] [address] Social History Tobacco Use Types Packs/Day Years Used Date Smoking Tobacco: Never Assessed Comments Unknown Sex and Gender Information Value Date Recorded Sex Assigned at Not on file Legal Sex Female 2:44 AM RESPOOLER Gender Identity Not on file Sexual Orientation Not on file documented as of this encounter Plan of Treatment Not on file documented as of this encounter Visit Diagnoses Not on filedocumented in this encounter
--- OUTSIDE RECORDS SUMMARY | 2025-01-19 09:14 | XMS_ITS | Encounter Summary ---
Author Organization [facility] Address [address] [place] [address] Care Team Providers Care Power Transformer Repair Supervisor Name Role Phone Unavailable Primary Care Provider Unavailabl e Encounter Details Date Type Department Care Team (Late st Contact Info) Description 06/04/2003 Outpatient Historical [facility] Pediatrics [address] [place] [address] Murtaza Mcnulty MD [address] [place] [address] Social History Tobacco Use Types Packs/Day Years Used Date Smoking Tobacco: Never Assessed Comments Unknown Sex and Gender Information Value Date Recorded Sex Assigned at Not on file Legal Sex Female 2:44 AM MACHINE GREASER Gender Identity Not on file Sexual Orientation Not on file documented as of this encounter Plan of Treatment Not on file documented as of this encounter Visit Diagnoses Not on filedocumented in this encounter
--- OUTSIDE RECORDS SUMMARY | 2025-01-19 09:14 | XMS_ITS | Encounter Summary ---
Author Organization [facility] Address [address] [place] [address] Care Team Providers Care Office Mover Name Role Phone Unavailable Primary Care Provider Unavailabl e Encounter Details Date Type Department Care Team (Late st Contact Info) Description 02/12/2004 Outpatient Historical [facility] Pediatrics [address] [place] [address] Murtaza Mcnulty MD [address] [place] [address] Social History Tobacco Use Types Packs/Day Years Used Date Smoking Tobacco: Never Assessed Comments Unknown Sex and Gender Information Value Date Recorded Sex Assigned at Not on file Legal Sex Female 2:44 AM PARALEGAL SUPERVISOR Gender Identity Not on file Sexual Orientation Not on file documented as of this encounter Plan of Treatment Not on file documented as of this encounter Visit Diagnoses Not on filedocumented in this encounter
--- OUTSIDE RECORDS SUMMARY | 2025-01-19 09:14 | XMS_ITS | Encounter Summary ---
Author Organization [facility] Address [address] [place] [address] Care Team Providers Care Web Application Tester Name Role Phone Unavailable Primary Care Provider Unavailabl e Encounter Details Date Type Department Care Team (Late st Contact Info) Description 06/06/2001 Outpatient Historical [facility] Pediatrics [place] [address] [facility] [address] [place] [address] Kashmir Gunn MD [address] [facility] [address] [place] [address] Social History Tobacco Use Types Packs/Day Years Used Date Smoking Tobacco: Never Assessed Comments Unknown Sex and Gender Information Value Date Recorded Sex Assigned at Not on file Legal Sex Female 2:44 AM PANTS CUTTER Gender Identity Not on file Sexual Orientation Not on file documented as of this encounter Plan of Treatment Not on file documented as of this encounter Visit Diagnoses Not on filedocumented in this encounter
--- OUTSIDE RECORDS SUMMARY | 2025-01-19 09:14 | XMS_ITS | Encounter Summary ---
Author Organization [facility] Address [address] [place] [address] Care Team Providers Care Bargain Table Clerk Name Role Phone Unavailable Primary Care Provider Unavailabl e Encounter Details Date Type Department Care Team (Late st Contact Info) Description 07/10/1998 Outpatient Historical [facility] Pediatrics [place] [address] [place] [address] Moises Guerrero Social History Tobacco Use Types Packs/Day Years Used Date Smoking Tobacco: Never Assessed Comments Unknown Sex and Gender Information Value Date Recorded Sex Assigned at Not on file Legal Sex Female 2:44 AM DIRECTOR LEARNING Gender Identity Not on file Sexual Orientation Not on file documented as of this encounter Plan of Treatment Not on file documented as of this encounter Visit Diagnoses Not on filedocumented in this encounter
--- OUTSIDE RECORDS SUMMARY | 2025-01-19 09:14 | XMS_ITS | Encounter Summary ---
Author Organization [facility] Address [address] [place] [address] Care Team Providers Care Melon Packer Name Role Phone Unavailable Primary Care Provider Unavailabl e Encounter Details Date Type Department Care Team (Late st Contact Info) Description 07/09/2004 Outpatient Historical [facility] Pediatrics [address] [place] [address] Murtaza Mcnulty MD [address] [place] [address] Social History Tobacco Use Types Packs/Day Years Used Date Smoking Tobacco: Never Assessed Comments Unknown Sex and Gender Information Value Date Recorded Sex Assigned at Not on file Legal Sex Female 2:44 AM SENIOR SQL SERVER DEVELOPER Gender Identity Not on file Sexual Orientation Not on file documented as of this encounter Plan of Treatment Not on file documented as of this encounter Visit Diagnoses Not on filedocumented in this encounter
--- OUTSIDE RECORDS SUMMARY | 2025-01-19 09:14 | XMS_ITS | Encounter Summary ---
Author Organization [facility] Address [address] [place] [address] Care Team Providers Care Salt Machine Operator Name Role Phone Unavailable Primary Care Provider Unavailabl e Encounter Details Date Type Department Care Team (Late st Contact Info) Description 03/22/2002 Outpatient Historical [facility] Pediatrics [address] [place] [address] Murtaza Mcnulty MD [address] [place] [address] Social History Tobacco Use Types Packs/Day Years Used Date Smoking Tobacco: Never Assessed Comments Unknown Sex and Gender Information Value Date Recorded Sex Assigned at Not on file Legal Sex Female 2:44 AM CASE LINER Gender Identity Not on file Sexual Orientation Not on file documented as of this encounter Plan of Treatment Not on file documented as of this encounter Visit Diagnoses Not on filedocumented in this encounter
--- OUTSIDE RECORDS SUMMARY | 2025-01-19 09:14 | XMS_ITS | Encounter Summary ---
Author Organization [facility] Address [address] [place] [address] Care Team Providers Care Departure Clerk Name Role Phone Unavailable Primary Care Provider Unavailabl e Encounter Details Date Type Department Care Team (Late st Contact Info) Description 05/31/1998 Outpatient Historical [facility] Pediatrics [address] [place] [address] Moises Guerrero Social History Tobacco Use Types Packs/Day Years Used Date Smoking Tobacco: Never Assessed Comments Unknown Sex and Gender Information Value Date Recorded Sex Assigned at Not on file Legal Sex Female 2:44 AM COMMUNITY DEVELOPMENT MANAGER Gender Identity Not on file Sexual Orientation Not on file documented as of this encounter Plan of Treatment Not on file documented as of this encounter Procedures Procedure Name Priority Date/Time Associated Diagnosis Comments CHG POLIOVIRUS VACCINE LIVE ORAL VFC 05/31/1998 12:00 AM COMMUNITY DEVELOPMENT MANAGER documented in this encounter Visit Diagnoses Not on filedocumented in this encounter
--- OUTSIDE RECORDS SUMMARY | 2025-01-19 09:14 | XMS_ITS | Encounter Summary ---
Author Organization [facility] Address [address] [place] [address] Care Team Providers Care Foot Doctor Name Role Phone Unavailable Primary Care Provider Unavailabl e Encounter Details Date Type Department Care Team (Late st Contact Info) Description 05/06/2004 Outpatient Historical [facility] Pediatrics [address] [place] [address] Murtaza Mcnulty MD [address] [place] [address] Social History Tobacco Use Types Packs/Day Years Used Date Smoking Tobacco: Never Assessed Comments Unknown Sex and Gender Information Value Date Recorded Sex Assigned at Not on file Legal Sex Female 2:44 AM UTILITIES GROUND 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
--- OUTSIDE RECORDS SUMMARY | 2025-01-19 09:14 | XMS_ITS | Encounter Summary ---
Author Organization [facility] Address [address] [place] [address] Care Team Providers Care Manager Recruitment Name Role Phone Unavailable Primary Care Provider Unavailabl e Encounter Details Date Type Department Care Team (Late st Contact Info) Description 04/09/1998 Outpatient Historical [facility] Pediatrics [place] [address] [place] [address] Moises Guerrero Social History Tobacco Use Types Packs/Day Years Used Date Smoking Tobacco: Never Assessed Comments Unknown Sex and Gender Information Value Date Recorded Sex Assigned at Not on file Legal Sex Female 2:44 AM NETWORK DEVELOPMENT COORDINATOR Gender Identity Not on file Sexual Orientation Not on file documented as of this encounter Plan of Treatment Not on file documented as of this encounter Visit Diagnoses Not on filedocumented in this encounter
--- OUTSIDE RECORDS SUMMARY | 2025-01-19 09:14 | XMS_ITS | Encounter Summary ---
Author Organization [facility] Address [address] [place] [address] Care Team Providers Care Pocketed Spring Machine Operator Name Role Phone Unavailable Primary Care Provider Unavailabl e Encounter Details Date Type Department Care Team (Late st Contact Info) Description 01/09/2004 Outpatient Historical [facility] Pediatrics [address] [place] [address] Murtaza Mcnulty MD [address] [place] [address] Social History Tobacco Use Types Packs/Day Years Used Date Smoking Tobacco: Never Assessed Comments Unknown Sex and Gender Information Value Date Recorded Sex Assigned at Not on file Legal Sex Female 2:44 AM IT SECURITY ARCHITECT Gender Identity Not on file Sexual Orientation Not on file documented as of this encounter Plan of Treatment Not on file documented as of this encounter Visit Diagnoses Not on filedocumented in this encounter
--- NOTE | 2025-01-19 09:38 | PC.NURSE ---
Patient states she has had frontal headache aching described as throbbing since yesterday. Currently pain is rated as a 6/10. States she is having swelling of hands and face. Pt states she noted dots of bright red blood with wiping this AM. Not using pad. (only with wiping). States blood pressures at home have been 14/-150/90's. Previous hx previa which resolved. Reflexes 2+, No edema noted to lower extremities. No clonus.
--- NOTE | 2025-01-19 09:49 | PC.NURSE ---
Dr. Pretty paged.
--- NOTE | 2025-01-19 09:58 | PC.NURSE ---
Report to Dr. Pretty regarding patient condition. Symptoms headache, Light dot spotting, Blood pressure at home and complaints of swelling. Assessment as documented reported. Orders received.
[2025-01-19] MEDS: ACETAMINOPHEN 500 MG TABLET 1000 MG PO (10:12)
[2025-01-19 10:23] LABS: Hematocrit 32.6 % (37.0-47.0); Hemoglobin 11.0 g/dL (12.0-15.0); Immature Granulocyte Percent A 3.7 % (0-0.5); Lymphocytes Absolute Auto 1.76 K/mm3 (0.9-3.2); Mean Corpuscular HGB Conc 33.7 g/dl (32-36); Mean Corpuscular Hemoglobin 29.0 pg (26-34); Mean Corpuscular Volume 86.0 fl (80-100); Nucleated Red Blood Cells Absolute Auto 0.000 K/mm3 (0.0-0.012); Nucleated Red Blood Cells Perc 0.0 % (0.0-0.2); Platelet Count Result 200 k/mm3 (150-375); Red Blood Count 3.79 M/mm3 (4.2-5.4); White Blood Count 13.1 K/mm3 (4.5-10.0)
[2025-01-19 10:26] LABS: Add Urine Microscopic? NO; Appearance Urine Clear (Clear); Glucose Urine UA Negative (Negative); Leukocyte Esterase Ur Negative LEU/UL (Negative); Nitrate Urine Negative (Negative); Specific Grav Ur 1.010 (1.001-1.035)
[2025-01-19 10:35] LABS: Alanine Aminotransferase 20 U/L (6-35); Albumin Level 3.4 g/dL (3.5-5.1); Alkaline Phosphatase 117 U/L (38-126); Anion Gap 7 mmol/L (4-12); Aspartate Amino Transferase 33 U/L (14-36); Bilirubin,Total 0.4 mg/dL (0.2-1.3); Blood Urea Nitrogen 7 mg/dL (7-17); Calcium 8.7 mg/dL (8.4-10.2); Carbon Dioxide 20 mmol/L (22-30); Chloride 106 mmol/L (98-107); Estimated Glomerular Filt Rate > 60; Glucose 85 mg/dL (65-110); Potassium 3.8 mmol/L (3.4-5.0); Sodium 133 mmol/L (137-145); Total Protein 6.2 g/dL (6.3-8.2); Uric Acid 5.0 mg/dL (2.5-7.5)
== END 2025-01-19 11:25 | disposition home or self-care (01) ==
LOC: ANHOBOP 09:10 → ANHOBPP 09:11
PROVIDERS: PCP Emergency Medicine; Visit Provider Obstetrics & Gynecology Gynecology
DX: O13.9 Gestational [pregnancy-induced] hypertension without significant proteinuria, unspecified trimester (principal); Z3A.00 Weeks of gestation of pregnancy not specified
CPT/HCPCS: 36415; 59025; 80053; 81003; 84550; 85025; 99199; A9270

== ENCOUNTER 2025-01-23 04:52 | Inpatient (IN) | payer OTHER, SELFPAY ==
[2025-01-23] VITALS (227 sets, daily range): BP systolic 49–147; BP diastolic 23–90; PULSE 25–181; RESP 17–18; TEMP 36.1–36.8; O2SAT 82–100; BMI 35.2
--- OUTSIDE RECORDS SUMMARY | 2025-01-23 04:57 | XMS_ITS | Encounter Summary ---
Author Organization [facility] Address [address] [place] [address] Care Team Providers Care Slip Mixer Name Role Phone Unavailable Primary Care Provider Unavailabl e Encounter Details Date Type Department Care Team (Late st Contact Info) Description 12/03/1998 Outpatient Historical [facility] Pediatrics [place] [place] [address] Moises Guerrero Social History Tobacco Use Types Packs/Day Years Used Date Smoking Tobacco: Never Assessed Comments Unknown Sex and Gender Information Value Date Recorded Sex Assigned at Not on file Legal Sex Female 2:44 AM PARADICHLOROBENZENE MACHINE 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
--- OUTSIDE RECORDS SUMMARY | 2025-01-23 04:57 | XMS_ITS | Encounter Summary ---
Author Organization [facility] Address [address] [place] [address] Care Team Providers Care Past Due Accounts Clerk Name Role Phone Unavailable Primary Care Provider Unavailabl e Encounter Details Date Type Department Care Team (Late st Contact Info) Description 01/09/2004 Outpatient Historical [facility] Pediatrics [address] [place] [address] Murtaza Mcnulty MD [address] [place] [address] Social History Tobacco Use Types Packs/Day Years Used Date Smoking Tobacco: Never Assessed Comments Unknown Sex and Gender Information Value Date Recorded Sex Assigned at Not on file Legal Sex Female 2:44 AM CHAUFFEUR MOTORBUS Gender Identity Not on file Sexual Orientation Not on file documented as of this encounter Plan of Treatment Not on file documented as of this encounter Visit Diagnoses Not on filedocumented in this encounter
--- OUTSIDE RECORDS SUMMARY | 2025-01-23 04:57 | XMS_ITS | Encounter Summary ---
Author Organization [facility] Address [address] [place] [address] Care Team Providers Care Generator Mechanic Name Role Phone Unavailable Primary Care Provider Unavailabl e Encounter Details Date Type Department Care Team (Late st Contact Info) Description 01/05/2000 Outpatient Historical [facility] Pediatrics [place] [address] [facility] [address] [place] [address] Kashmir Gunn MD [address] [facility] [address] [place] [address] Social History Tobacco Use Types Packs/Day Years Used Date Smoking Tobacco: Never Assessed Comments Unknown Sex and Gender Information Value Date Recorded Sex Assigned at Not on file Legal Sex Female 2:44 AM CIRCULATING NURSE Gender Identity Not on file Sexual Orientation Not on file documented as of this encounter Plan of Treatment Not on file documented as of this encounter Visit Diagnoses Not on filedocumented in this encounter
--- OUTSIDE RECORDS SUMMARY | 2025-01-23 04:57 | XMS_ITS | Encounter Summary ---
Author Organization [facility] Address [address] [place] [address] Care Team Providers Care Executive Producer Name Role Phone Unavailable Primary Care Provider Unavailabl e Encounter Details Date Type Department Care Team (Late st Contact Info) Description 07/25/1999 Outpatient Historical [facility] Pediatrics [place] [place] [address] Moises Guerrero Social History Tobacco Use Types Packs/Day Years Used Date Smoking Tobacco: Never Assessed Comments Unknown Sex and Gender Information Value Date Recorded Sex Assigned at Not on file Legal Sex Female 2:44 AM SYSTEMS PROGRAMMER Gender Identity Not on file Sexual Orientation Not on file documented as of this encounter Plan of Treatment Not on file documented as of this encounter Visit Diagnoses Not on filedocumented in this encounter
--- OUTSIDE RECORDS SUMMARY | 2025-01-23 04:57 | XMS_ITS | Encounter Summary ---
Author Organization [facility] Address [address] [place] [address] Care Team Providers Care City Tax Auditor Name Role Phone Unavailable Primary Care Provider Unavailabl e Encounter Details Date Type Department Care Team (Late st Contact Info) Description 08/15/1999 Outpatient Historical [facility] Pediatrics [place] [place] [address] Moises Guerrero Social History Tobacco Use Types Packs/Day Years Used Date Smoking Tobacco: Never Assessed Comments Unknown Sex and Gender Information Value Date Recorded Sex Assigned at Not on file Legal Sex Female 2:44 AM PRINCIPAL CLOUD ARCHITECT Gender Identity Not on file Sexual Orientation Not on file documented as of this encounter Plan of Treatment Not on file documented as of this encounter Visit Diagnoses Not on filedocumented in this encounter
--- OUTSIDE RECORDS SUMMARY | 2025-01-23 04:57 | XMS_ITS | Encounter Summary ---
Author Organization [facility] Address [address] [place] [address] Care Team Providers Care Social Science Analyst Name Role Phone Unavailable Primary Care Provider Unavailabl e Encounter Details Date Type Department Care Team (Late st Contact Info) Description 10/25/1998 Outpatient Historical [facility] Pediatrics [place] [place] [address] Moises Guerrero Social History Tobacco Use Types Packs/Day Years Used Date Smoking Tobacco: Never Assessed Comments Unknown Sex and Gender Information Value Date Recorded Sex Assigned at Not on file Legal Sex Female 2:44 AM ABATTOIR MANAGER Gender Identity Not on file Sexual Orientation Not on file documented as of this encounter Plan of Treatment Not on file documented as of this encounter Visit Diagnoses Not on filedocumented in this encounter
--- OUTSIDE RECORDS SUMMARY | 2025-01-23 04:57 | XMS_ITS | Encounter Summary ---
Author Organization [facility] Address [address] [place] [address] Care Team Providers Care Sanforizer Name Role Phone Unavailable Primary Care Provider Unavailabl e Encounter Details Date Type Department Care Team (Late st Contact Info) Description 04/29/1999 Outpatient Historical [facility] Pediatrics [place] [place] [address] Moises Guerrero Social History Tobacco Use Types Packs/Day Years Used Date Smoking Tobacco: Never Assessed Comments Unknown Sex and Gender Information Value Date Recorded Sex Assigned at Not on file Legal Sex Female 2:44 AM MARKETING CONSULTANT Gender Identity Not on file Sexual Orientation Not on file documented as of this encounter Plan of Treatment Not on file documented as of this encounter Visit Diagnoses Not on filedocumented in this encounter
--- OUTSIDE RECORDS SUMMARY | 2025-01-23 04:57 | XMS_ITS | Encounter Summary ---
Author Organization [facility] Address [address] [place] [address] Care Team Providers Care Senior Embedded Software Engineer Name Role Phone Unavailable Primary Care Provider Unavailabl e Encounter Details Date Type Department Care Team (Late st Contact Info) Description 03/26/2000 Outpatient Historical [facility] Pediatrics [place] [address] [facility] [address] [place] [address] Kashmir Gunn MD [address] [facility] [address] [place] [address] Social History Tobacco Use Types Packs/Day Years Used Date Smoking Tobacco: Never Assessed Comments Unknown Sex and Gender Information Value Date Recorded Sex Assigned at Not on file Legal Sex Female 2:44 AM SKILL LABOR Gender Identity Not on file Sexual Orientation Not on file documented as of this encounter Plan of Treatment Not on file documented as of this encounter Visit Diagnoses Not on filedocumented in this encounter
--- OUTSIDE RECORDS SUMMARY | 2025-01-23 04:57 | XMS_ITS | Encounter Summary ---
Author Organization [facility] Address [address] [place] [address] Care Team Providers Care Supervisor Tower Name Role Phone Unavailable Primary Care Provider Unavailabl e Encounter Details Date Type Department Care Team (Late st Contact Info) Description 11/04/2004 Outpatient Historical [facility] Pediatrics [address] [place] [address] Murtaza Mcnulty MD [address] [place] [address] Social History Tobacco Use Types Packs/Day Years Used Date Smoking Tobacco: Never Assessed Comments Unknown Sex and Gender Information Value Date Recorded Sex Assigned at Not on file Legal Sex Female 2:44 AM SUMAC TANNER Gender Identity Not on file Sexual Orientation Not on file documented as of this encounter Plan of Treatment Not on file documented as of this encounter Visit Diagnoses Not on filedocumented in this encounter
--- OUTSIDE RECORDS SUMMARY | 2025-01-23 04:57 | XMS_ITS | Encounter Summary ---
Author Organization [facility] Address [address] [place] [address] Care Team Providers Care Drilling Field Operator Name Role Phone Unavailable Primary Care Provider Unavailabl e Encounter Details Date Type Department Care Team (Late st Contact Info) Description 01/14/1998 Outpatient Historical [facility] Pediatrics [place] [address] [place] [address] Moises Guerrero Social History Tobacco Use Types Packs/Day Years Used Date Smoking Tobacco: Never Assessed Comments Unknown Sex and Gender Information Value Date Recorded Sex Assigned at Not on file Legal Sex Female 2:44 AM PARK ATTENDANT Gender Identity Not on file Sexual Orientation Not on file documented as of this encounter Plan of Treatment Not on file documented as of this encounter Visit Diagnoses Not on filedocumented in this encounter
--- OUTSIDE RECORDS SUMMARY | 2025-01-23 04:57 | XMS_ITS | Encounter Summary ---
Author Organization [facility] Address [address] [place] [address] Care Team Providers Care Supervisor Quality Control Name Role Phone Unavailable Primary Care Provider Unavailabl e Encounter Details Date Type Department Care Team (Late st Contact Info) Description 03/05/2001 Outpatient Historical [facility] Pediatrics [place] [address] [place] [address] Luis Conklin MD [address] [place] [address] Social History Tobacco Use Types Packs/Day Years Used Date Smoking Tobacco: Never Assessed Comments Unknown Sex and Gender Information Value Date Recorded Sex Assigned at Not on file Legal Sex Female 2:44 AM BENDING PRESS 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
--- OUTSIDE RECORDS SUMMARY | 2025-01-23 04:57 | XMS_ITS | Encounter Summary ---
Author Organization [facility] Address [address] [place] [address] Care Team Providers Care Investigation Clerk Name Role Phone Unavailable Primary Care Provider Unavailabl e Encounter Details Date Type Department Care Team (Late st Contact Info) Description 09/21/2000 Outpatient Historical [facility] Pediatrics [place] [address] [address] [place] [address] Egdar [place] MD [address] [facility] [address] [place] [address] Social History Tobacco Use Types Packs/Day Years Used Date Smoking Tobacco: Never Assessed Comments Unknown Sex and Gender Information Value Date Recorded Sex Assigned at Not on file Legal Sex Female 2:44 AM ASSISTANT TODDLER 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
--- OUTSIDE RECORDS SUMMARY | 2025-01-23 04:57 | XMS_ITS | Encounter Summary ---
Author Organization [facility] Address [address] [place] [address] Care Team Providers Care Night Auditor Name Role Phone Unavailable Primary Care Provider Unavailabl e Encounter Details Date Type Department Care Team (Late st Contact Info) Description 02/05/2000 Outpatient Historical [facility] Pediatrics [place] [address] [facility] [facility] [address] [place] [address] Kashmir Gnun MD [address] [facility] [address] [place] [address] Social History Tobacco Use Types Packs/Day Years Used Date Smoking Tobacco: Never Assessed Comments Unknown Sex and Gender Information Value Date Recorded Sex Assigned at Not on file Legal Sex Female 2:44 AM SOCIAL MEDIA ASSISTANT Gender Identity Not on file Sexual Orientation Not on file documented as of this encounter Plan of Treatment Not on file documented as of this encounter Visit Diagnoses Not on filedocumented in this encounter
--- OUTSIDE RECORDS SUMMARY | 2025-01-23 04:57 | XMS_ITS | Encounter Summary ---
Author Organization [facility] Address [address] [place] [address] Care Team Providers Care Drafter Mechanical Name Role Phone Unavailable Primary Care Provider Unavailabl e Encounter Details Date Type Department Care Team (Late st Contact Info) Description 07/10/1998 Outpatient Historical [facility] Pediatrics [place] [address] [place] [address] Moises Guerrero Social History Tobacco Use Types Packs/Day Years Used Date Smoking Tobacco: Never Assessed Comments Unknown Sex and Gender Information Value Date Recorded Sex Assigned at Not on file Legal Sex Female 2:44 AM CLOCK 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
--- OUTSIDE RECORDS SUMMARY | 2025-01-23 04:57 | XMS_ITS | Encounter Summary ---
Author Organization [facility] Address [address] [place] [address] Care Team Providers Care Grey Iron Molder Name Role Phone Unavailable Primary Care Provider Unavailabl e Encounter Details Date Type Department Care Team (Late st Contact Info) Description 02/13/2003 Outpatient Historical [facility] Pediatrics [address] [place] [address] Murtaza Mcnulty MD [address] [place] [address] Social History Tobacco Use Types Packs/Day Years Used Date Smoking Tobacco: Never Assessed Comments Unknown Sex and Gender Information Value Date Recorded Sex Assigned at Not on file Legal Sex Female 2:44 AM METHODS AND PROCEDURES ANALYST Gender Identity Not on file Sexual Orientation Not on file documented as of this encounter Plan of Treatment Not on file documented as of this encounter Visit Diagnoses Not on filedocumented in this encounter
--- OUTSIDE RECORDS SUMMARY | 2025-01-23 04:57 | XMS_ITS | Encounter Summary ---
Author Organization [facility] Address [address] [place] [address] Care Team Providers Care Loan Review Officer Name Role Phone Unavailable Primary Care Provider Unavailabl e Encounter Details Date Type Department Care Team (Late st Contact Info) Description 09/06/1998 Outpatient Historical [facility] Pediatrics [place] [place] [address] Moises Guerrero Social History Tobacco Use Types Packs/Day Years Used Date Smoking Tobacco: Never Assessed Comments Unknown Sex and Gender Information Value Date Recorded Sex Assigned at Not on file Legal Sex Female 2:44 AM FOREST PRODUCTS 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
--- OUTSIDE RECORDS SUMMARY | 2025-01-23 04:57 | XMS_ITS | Encounter Summary ---
Author Organization [facility] Address [address] [place] [address] Care Team Providers Care Team Driver Name Role Phone Unavailable Primary Care Provider Unavailabl e Encounter Details Date Type Department Care Team (Late st Contact Info) Description 03/22/2002 Outpatient Historical [facility] Pediatrics [address] [place] [address] Murtaza Mcnulty MD [address] [place] [address] Social History Tobacco Use Types Packs/Day Years Used Date Smoking Tobacco: Never Assessed Comments Unknown Sex and Gender Information Value Date Recorded Sex Assigned at Not on file Legal Sex Female 2:44 AM LEAD MASON TENDER Gender Identity Not on file Sexual Orientation Not on file documented as of this encounter Plan of Treatment Not on file documented as of this encounter Visit Diagnoses Not on filedocumented in this encounter
--- OUTSIDE RECORDS SUMMARY | 2025-01-23 04:57 | XMS_ITS | Encounter Summary ---
Author Organization [facility] Address [address] [place] [address] Care Team Providers Care Custody Officer Name Role Phone Unavailable Primary Care Provider Unavailabl e Encounter Details Date Type Department Care Team (Late st Contact Info) Description 04/03/2000 Outpatient Historical [facility] Pediatrics [place] [address] [place] [address] Luis Conklin MD [address] [place] [address] Social History Tobacco Use Types Packs/Day Years Used Date Smoking Tobacco: Never Assessed Comments Unknown Sex and Gender Information Value Date Recorded Sex Assigned at Not on file Legal Sex Female 2:44 AM AUTO PARTS DELIVERY DRIVER Gender Identity Not on file Sexual Orientation Not on file documented as of this encounter Plan of Treatment Not on file documented as of this encounter Visit Diagnoses Not on filedocumented in this encounter
--- OUTSIDE RECORDS SUMMARY | 2025-01-23 04:57 | XMS_ITS | Encounter Summary ---
Author Organization [facility] Address [address] [place] [address] Care Team Providers Care Gear Shaver Set Up Operator Name Role Phone Unavailable Primary Care Provider Unavailabl e Encounter Details Date Type Department Care Team (Late st Contact Info) Description 11/28/1998 Outpatient Historical [facility] Pediatrics [place] [address] [place] [address] Moises Guerrero Social History Tobacco Use Types Packs/Day Years Used Date Smoking Tobacco: Never Assessed Comments Unknown Sex and Gender Information Value Date Recorded Sex Assigned at Not on file Legal Sex Female 2:44 AM HAT BODY SORTER Gender Identity Not on file Sexual Orientation Not on file documented as of this encounter Plan of Treatment Not on file documented as of this encounter Visit Diagnoses Not on filedocumented in this encounter
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
--- OUTSIDE RECORDS SUMMARY | 2025-01-23 04:57 | XMS_ITS | Encounter Summary ---
Author Organization [facility] Address [address] [place] [address] Care Team Providers Care Electric Serviceman Name Role Phone Unavailable Primary Care Provider Unavailabl e Encounter Details Date Type Department Care Team (Late st Contact Info) Description 05/28/1998 Outpatient Historical [facility] Pediatrics [place] [address] [place] [address] Moises Guerrero Social History Tobacco Use Types Packs/Day Years Used Date Smoking Tobacco: Never Assessed Comments Unknown Sex and Gender Information Value Date Recorded Sex Assigned at Not on file Legal Sex Female 2:44 AM FORENSIC IDENTIFICATION SPECIALIST Gender Identity Not on file Sexual Orientation Not on file documented as of this encounter Plan of Treatment Not on file documented as of this encounter Visit Diagnoses Not on filedocumented in this encounter
--- OUTSIDE RECORDS SUMMARY | 2025-01-23 04:57 | XMS_ITS | Encounter Summary ---
Author Organization [facility] Address [address] [place] [address] Care Team Providers Care Beam Dyer Name Role Phone Unavailable Primary Care Provider Unavailabl e Encounter Details Date Type Department Care Team (Late st Contact Info) Description 06/01/2000 Outpatient Historical [facility] Pediatrics [place] [address] [facility] [address] [place] [address] Kashmir Gunn MD [address] [facility] [address] [place] [address] Social History Tobacco Use Types Packs/Day Years Used Date Smoking Tobacco: Never Assessed Comments Unknown Sex and Gender Information Value Date Recorded Sex Assigned at Not on file Legal Sex Female 2:44 AM SOLUTION MANAGER Gender Identity Not on file Sexual Orientation Not on file documented as of this encounter Plan of Treatment Not on file documented as of this encounter Visit Diagnoses Not on filedocumented in this encounter
--- OUTSIDE RECORDS SUMMARY | 2025-01-23 04:57 | XMS_ITS | Encounter Summary ---
Author Organization [facility] Address [address] [place] [address] Care Team Providers Care Bobbin Disker Name Role Phone Unavailable Primary Care Provider Unavailabl e Encounter Details Date Type Department Care Team (Late st Contact Info) Description 01/07/1998 Outpatient Historical [facility] Pediatrics [place] [address] [place] [address] Moises Guerrero Social History Tobacco Use Types Packs/Day Years Used Date Smoking Tobacco: Never Assessed Comments Unknown Sex and Gender Information Value Date Recorded Sex Assigned at Not on file Legal Sex Female 2:44 AM BOILERMAKER'S ASSISTANT Gender Identity Not on file Sexual Orientation Not on file documented as of this encounter Plan of Treatment Not on file documented as of this encounter Visit Diagnoses Not on filedocumented in this encounter
--- OUTSIDE RECORDS SUMMARY | 2025-01-23 04:57 | XMS_ITS | Encounter Summary ---
Author Organization [facility] Address [address] [place] [address] Care Team Providers Care Grinder Operator Tool Name Role Phone Unavailable Primary Care Provider Unavailabl e Encounter Details Date Type Department Care Team (Late st Contact Info) Description 08/23/1998 Outpatient Historical [facility] Pediatrics [place] [place] [address] Moises Guerrero Social History Tobacco Use Types Packs/Day Years Used Date Smoking Tobacco: Never Assessed Comments Unknown Sex and Gender Information Value Date Recorded Sex Assigned at Not on file Legal Sex Female 2:44 AM LADLE 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
--- OUTSIDE RECORDS SUMMARY | 2025-01-23 04:57 | XMS_ITS | Encounter Summary ---
Author Organization [facility] Address [address] [place] [address] Care Team Providers Care Provisioning Analyst Name Role Phone Unavailable Primary Care Provider Unavailabl e Encounter Details Date Type Department Care Team (Late st Contact Info) Description 06/04/2003 Outpatient Historical [facility] Pediatrics [address] [place] [address] Murtaza Mcnulty MD [address] [place] [address] Social History Tobacco Use Types Packs/Day Years Used Date Smoking Tobacco: Never Assessed Comments Unknown Sex and Gender Information Value Date Recorded Sex Assigned at Not on file Legal Sex Female 2:44 AM BUILDING CERTIFIER Gender Identity Not on file Sexual Orientation Not on file documented as of this encounter Plan of Treatment Not on file documented as of this encounter Visit Diagnoses Not on filedocumented in this encounter
--- OUTSIDE RECORDS SUMMARY | 2025-01-23 04:57 | XMS_ITS | Encounter Summary ---
Author Organization [facility] Address [address] [place] [address] Care Team Providers Care Embossing Press Operator Apprentice Name Role Phone Unavailable Primary Care Provider Unavailabl e Encounter Details Date Type Department Care Team (Late st Contact Info) Description 05/31/1998 Outpatient Historical [facility] Pediatrics [address] [place] [address] Moises Guerrero Social History Tobacco Use Types Packs/Day Years Used Date Smoking Tobacco: Never Assessed Comments Unknown Sex and Gender Information Value Date Recorded Sex Assigned at Not on file Legal Sex Female 2:44 AM EDITORIAL CLERK Gender Identity Not on file Sexual Orientation Not on file documented as of this encounter Plan of Treatment Not on file documented as of this encounter Procedures Procedure Name Priority Date/Time Associated Diagnosis Comments CHG POLIOVIRUS VACCINE LIVE ORAL VFC 05/31/1998 12:00 AM EDITORIAL CLERK documented in this encounter Visit Diagnoses Not on filedocumented in this encounter
--- OUTSIDE RECORDS SUMMARY | 2025-01-23 04:57 | XMS_ITS | Encounter Summary ---
Author Organization [facility] Address [address] [place] [address] Care Team Providers Care Fish Cutting Machine Operator Name Role Phone Unavailable Primary Care Provider Unavailabl e Encounter Details Date Type Department Care Team (Late st Contact Info) Description 05/29/1999 Outpatient Historical [facility] Pediatrics [place] [address] [place] [address] Moises Guerrero Social History Tobacco Use Types Packs/Day Years Used Date Smoking Tobacco: Never Assessed Comments Unknown Sex and Gender Information Value Date Recorded Sex Assigned at Not on file Legal Sex Female 2:44 AM BOXING AND PRESSING SUPERVISOR Gender Identity Not on file Sexual Orientation Not on file documented as of this encounter Plan of Treatment Not on file documented as of this encounter Visit Diagnoses Not on filedocumented in this encounter
--- OUTSIDE RECORDS SUMMARY | 2025-01-23 04:57 | XMS_ITS | Encounter Summary ---
Author Organization [facility] Address [address] [place] [address] Care Team Providers Care Confidential Investigator Name Role Phone Unavailable Primary Care Provider Unavailabl e Encounter Details Date Type Department Care Team (Late st Contact Info) Description 08/25/2001 Outpatient Historical [facility] Pediatrics [place] [address] [facility] [address] [place] [address] Kashmir Gunn MD [address] [facility] [address] [place] [address] Social History Tobacco Use Types [...]
--- OUTSIDE RECORDS SUMMARY | 2025-01-23 04:57 | XMS_ITS | Encounter Summary ---
Author Organization [facility] Address [address] [place] [address] Care Team Providers Care Tooth Inspector Name Role Phone Unavailable Primary Care Provider Unavailabl e Encounter Details Date Type Department Care Team (Late st Contact Info) Description 12/17/[address] [facility] Pediatrics [place] [address] [place] [address] Moises Guerrero Social History Tobacco Use Types Packs/Day Years Used Date Smoking Tobacco: Never Assessed Comments Unknown Sex and Gender Information Value Date Recorded Sex Assigned at Not on file Legal Sex Female 2:44 AM QUILT 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
--- OUTSIDE RECORDS SUMMARY | 2025-01-23 04:57 | XMS_ITS | Encounter Summary ---
Author Organization [facility] Address [address] [place] [address] Care Team Providers Care Skin Diver Name Role Phone Unavailable Primary Care Provider Unavailabl e Encounter Details Date Type Department Care Team (Late st Contact Info) Description 11/15/2003 Outpatient Historical [facility] Pediatrics [place] [address] [facility] [address] [place] [address] Kashmir Gunn MD [address] [facility] [address] [place] [address] Social History Tobacco Use Types Packs/Day Years Used Date Smoking Tobacco: Never Assessed Comments Unknown Sex and Gender Information Value Date Recorded Sex Assigned at Not on file Legal Sex Female 2:44 AM SALON SALES CONSULTANT Gender Identity Not on file Sexual Orientation Not on file documented as of this encounter Plan of Treatment Not on file documented as of this encounter Procedures Procedure Name Priority Date/Time Associated Diagnosis Comments CHG POLIOVIRUS IPV [facility] 4 12:00 AM CDT CHG MMR VACCINE SQ [facility] 4 12:00 AM CDT CHG DTAP VACCINE <7 YO IM VFC 11/15/2003 12:00 AM CDT documented in this encounter Visit Diagnoses Not on filedocumented in this encounter
--- OUTSIDE RECORDS SUMMARY | 2025-01-23 04:57 | XMS_ITS | Encounter Summary ---
Author Organization [facility] Address [address] [place] [address] Care Team Providers Care Security Manager Name Role Phone Unavailable Primary Care Provider Unavailabl e Encounter Details Date Type Department Care Team (Late st Contact Info) Description 07/09/2004 Outpatient Historical [facility] Pediatrics [address] [place] [address] Murtaza Mcnulty MD [address] [place] [address] Social History Tobacco Use Types Packs/Day Years Used Date Smoking Tobacco: Never Assessed Comments Unknown Sex and Gender Information Value Date Recorded Sex Assigned at Not on file Legal Sex Female 2:44 AM BOLT LABELER Gender Identity Not on file Sexual Orientation Not on file documented as of this encounter Plan of Treatment Not on file documented as of this encounter Visit Diagnoses Not on filedocumented in this encounter
--- OUTSIDE RECORDS SUMMARY | 2025-01-23 04:57 | XMS_ITS | Encounter Summary ---
Author Organization [facility] Address [address] [place] [address] Care Team Providers Care Payroll And Benefits Analyst Name Role Phone Unavailable Primary Care Provider Unavailabl e Encounter Details Date Type Department Care Team (Late st Contact Info) Description 01/06/1999 Outpatient Historical [facility] Pediatrics [place] [place] [address] Moises Guerrero Social History Tobacco Use Types Packs/Day Years Used Date Smoking Tobacco: Never Assessed Comments Unknown Sex and Gender Information Value Date Recorded Sex Assigned at Not on file Legal Sex Female 2:44 AM HYDRO PNEUMATIC TESTER Gender Identity Not on file Sexual Orientation Not on file documented as of this encounter Plan of Treatment Not on file documented as of this encounter Visit Diagnoses Not on filedocumented in this encounter
--- OUTSIDE RECORDS SUMMARY | 2025-01-23 04:57 | XMS_ITS | Encounter Summary ---
Author Organization [facility] Address [address] [place] [address] Care Team Providers Care Art History Instructor Name Role Phone Unavailable Primary Care Provider Unavailabl e Encounter Details Date Type Department Care Team (Late st Contact Info) Description 02/06/2004 Outpatient Historical [facility] Pediatrics [address] [place] [address] Murtaza Mcnulty MD [address] [place] [address] Social History Tobacco Use Types Packs/Day Years Used Date Smoking Tobacco: Never Assessed Comments Unknown Sex and Gender Information Value Date Recorded Sex Assigned at Not on file Legal Sex Female 2:44 AM STAFFING ANALYST Gender Identity Not on file Sexual Orientation Not on file documented as of this encounter Plan of Treatment Not on file documented as of this encounter Visit Diagnoses Not on filedocumented in this encounter
--- OUTSIDE RECORDS SUMMARY | 2025-01-23 04:57 | XMS_ITS | Encounter Summary ---
Author Organization [facility] Address [address] [place] [address] Care Team Providers Care Paper Hanger Name Role Phone Unavailable Primary Care Provider Unavailabl e Encounter Details Date Type Department Care Team (Late st Contact Info) Description 06/06/2001 Outpatient Historical [facility] Pediatrics [place] [address] [facility] 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
--- OUTSIDE RECORDS SUMMARY | 2025-01-23 04:57 | XMS_ITS | Encounter Summary ---
Author Organization [facility] Address [address] [place] [address] Care Team Providers Care Supervisor Evaporator Name Role Phone Unavailable Primary Care Provider Unavailabl e Encounter Details Date Type Department Care Team (Late st Contact Info) Description 08/23/1998 Outpatient Historical [facility] Pediatrics [place] [address] [place] [address] Moises Guerrero Social History Tobacco Use Types Packs/Day Years Used Date Smoking Tobacco: Never Assessed Comments Unknown Sex and Gender Information Value Date Recorded Sex Assigned at Not on file Legal Sex Female 2:44 AM MANAGER VAN Gender Identity Not on file Sexual Orientation Not on file documented as of this encounter Plan of Treatment Not on file documented as of this encounter Visit Diagnoses Not on filedocumented in this encounter
--- OUTSIDE RECORDS SUMMARY | 2025-01-23 04:57 | XMS_ITS | Clinical Summary ---
Author Organization [facility] Address [address] [place] [address] Phone Care Team Providers Care Labor Contractor Name Role Phone Varun Chavez MD Primary Care Provider [phone] Allergies Active Allergy Reactions Criticality Noted Date [...] making a change Department associated with goal: [facility] Steps [...] Insurance MEDICAID [employer] Care Teams Labor Contractor Relationship Specialty Start Date End Date Varun Chavez MD PCP - General Internal Medicine 11/13/21
--- OUTSIDE RECORDS SUMMARY | 2025-01-23 04:57 | XMS_ITS | Encounter Summary ---
Author Organization [facility] Address 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
--- OUTSIDE RECORDS SUMMARY | 2025-01-23 04:57 | XMS_ITS | Clinical Summary ---
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 Gender Identity Not on file Sexual Orientation Not on file Occupation Industry Job Start Date Job End Date Not on file Not on file Not on file Not on file Last Filed Vital Signs Vital Sign Reading Time Taken Comments Blood Pressure 110/80 01/28/2016 11:54 AM FORESTRY WORKER Pulse 101 01/28/2016 11:54 AM FORESTRY WORKER Temperature 37.1 C (98.7 F) 01/28/2016 11:54 AM FORESTRY WORKER Respiratory Rate 18 01/28/2016 11:54 AM FORESTRY WORKER Oxygen Saturation 97% 01/28/2016 11:54 AM FORESTRY WORKER Inhaled Oxygen Concentration - - Weight 61.7 kg (136 lb) 01/28/2016 11:54 AM FORESTRY WORKER Height 160 cm (5' 3) 01/28/2016 11:54 AM FORESTRY WORKER Body Mass Index 24.09 01/28/2016 11:54 AM FORESTRY WORKER Plan of Treatment Health Maintenance Due Date Last Done Comments DTAP/TDAP/TD VACCINES (1 - Tdap) 2016 HEPATITIS B VACCINES (1 of 3 - 19+ 3-dose series) 10/31 CERVICAL CANCER SCREENING 2018 HPV/Cotest (21-29) 2018 PAP SMEAR 2018 INFLUENZA VACCINE (#1) 2024 HPV VACCINES (1 - 3-dose SCDM series) 2024
--- OUTSIDE RECORDS SUMMARY | 2025-01-23 04:57 | XMS_ITS | Encounter Summary ---
Author Organization [facility] Address [address] [place] [address] Care Team Providers Care Strategic Planning Analyst Name Role Phone Unavailable Primary Care Provider Unavailabl e Encounter Details Date Type Department Care Team (Late st Contact Info) Description 05/31/1998 Outpatient Historical [facility] Pediatrics [address] [place] [address] Moises Guerrero Social History Tobacco Use Types Packs/Day Years Used Date Smoking Tobacco: Never Assessed Comments Unknown Sex and Gender Information Value Date Recorded Sex Assigned at Not on file Legal Sex Female 2:44 AM SENIOR LEAD DEVELOPER Gender Identity Not on file Sexual Orientation Not on file documented as of this encounter Plan of Treatment Not on file documented as of this encounter Procedures Procedure Name Priority Date/Time Associated Diagnosis Comments CHG HEPATITIS B VACCINE PED ADOL IM 3 DOSE VFC 05/31/1998 12:00 AM SENIOR LEAD DEVELOPER CHG DTAP VACCINE <7 YO IM VFC 05/31/1998 12:00 AM SENIOR LEAD DEVELOPER documented in this encounter Visit Diagnoses Not on filedocumented in this encounter
--- OUTSIDE RECORDS SUMMARY | 2025-01-23 04:57 | XMS_ITS | Encounter Summary ---
Author Organization [facility] Address 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
--- OUTSIDE RECORDS SUMMARY | 2025-01-23 04:57 | XMS_ITS | Encounter Summary ---
Author Organization [facility] Address [address] [place] [address] Care Team Providers Care Measurement Superintendent Name Role Phone Unavailable Primary Care Provider Unavailabl e Encounter Details Date Type Department Care Team (Late st Contact Info) Description 04/09/1998 Outpatient Historical [facility] Pediatrics [place] [address] [place] [address] Moises Guerrero Social History Tobacco Use Types Packs/Day Years Used Date Smoking Tobacco: Never Assessed Comments Unknown Sex and Gender Information Value Date Recorded Sex Assigned at Not on file Legal Sex Female 2:44 AM FOLDER AND NOTCHER Gender Identity Not on file Sexual Orientation Not on file documented as of this encounter Plan of Treatment Not on file documented as of this encounter Visit Diagnoses Not on filedocumented in this encounter
--- OUTSIDE RECORDS SUMMARY | 2025-01-23 04:58 | XMS_ITS | Encounter Summary ---
Author Organization [facility] Address [address] [place] [address] Care Team Providers Care Fiscal Technician Name Role Phone Unavailable Primary Care Provider Unavailabl e Encounter Details Date Type Department Care Team (Late st Contact Info) Description 02/12/2004 Outpatient Historical [facility] Pediatrics [address] [place] [address] Mrutaza Mcnulty MD [address] [place] [address] Social History Tobacco Use Types Packs/Day Years Used Date Smoking Tobacco: Never Assessed Comments Unknown Sex and Gender Information Value Date Recorded Sex Assigned at Not on file Legal Sex Female 2:44 AM MANAGER PACKAGE Gender Identity Not on file Sexual Orientation Not on file documented as of this encounter Plan of Treatment Not on file documented as of this encounter Visit Diagnoses Not on filedocumented in this encounter
--- OUTSIDE RECORDS SUMMARY | 2025-01-23 04:58 | XMS_ITS | Encounter Summary ---
Author Organization [facility] Address [address] [place] [address] Care Team Providers Care Heavy Equipment Plumbing Supervisor Name Role Phone Unavailable Primary Care Provider Unavailabl e Encounter Details Date Type Department Care Team (Late st Contact Info) Description 05/06/2004 Outpatient Historical [facility] Pediatrics [address] [place] [address] Murtaza Mcnulty MD [address] [place] [address] Social History Tobacco Use Types Packs/Day Years Used Date Smoking Tobacco: Never Assessed Comments Unknown Sex and Gender Information Value Date Recorded Sex Assigned at Not on file Legal Sex Female 2: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
--- OUTSIDE RECORDS SUMMARY | 2025-01-23 04:58 | XMS_ITS | Data Portability ---
Author Organization [place] [facility], Main Office Address [address] [place] [address] Assessment Encounter Date Assessment Date Assessment LastModified [...] Please call patient to schedule. 025 025 [facility], [address] [facility], [place], [address], 18:56:08 Medication Orders None recorded. Patient TargetsNo [...] 2016, 39( ppl.1 ):s13 -s22 Not Available [facility] (Lab) [address] [place], [address], 08/02/2020 21:21:32 08/03/19 21 08/02/2020 TSH + free T4, serum thyroid-stim ulating hormone 1.870 uIU/m L 0.465- 4.680 Not Available [facility] (Lab) [address] [place], [address], 08/02/2020 18:47:19 08/03/19 21 08/02/2020 T4, free, serum free T4 0.94 NG/dL 0.78-2 .19 Not Available [facility] (Lab) [address] [place], [address], 08/02/2020 18:13:37 08/03/19 21 08/02/2020 pregn elio [...] 19 6,800 TO 42,90 0 Not Available [facility] (Lab) [address] [place], [address], 08/02/2020 18:13:32 08/03/19 21 08/02/2020 vitam in D, 25-hy droxy , total , serum vd25oh 46.6 NG/mL 30-100 Vitam in D Statu s: Defic ient: <20 ng/mL Insuf ficie nt: 20-29 ng/mL Suffi cient : 30-10 0 ng/mL Not Available [facility] (Lab) [address] [place], [address], 08/02/2020 18:12:47 08/03/19 21 08/02/2020 lipid panel , serum cholesterol 127 mg/dL 140-19 9 low NIH JASON NSUS RECOM MENDA TION FOR GLENIS STERO L: ADULT CHILD LOW RISK: <200 <170 BORDE RLINE : <200- 239 ----- HIGH RISK: >240 >200 Not Available [facility] (Lab) [address] [place], [address], 08/02/2020 17:46:51 08/03/19 21 08/02/2020 lipid panel , serum triglyceride s 62 mg/dL 0-150 NIH JASON NSUS REPOR T RECOM MENDA TION FOR TRIGL YCERI RENA: ADULT CHILD LOW RISK: <150 ----- BODER LINE: 150-1 99 ----- HIGH RISK: >200 ----- Not Available [facility] (Lab) [address] [place], [address], 08/02/2020 17:46:51 08/03/19 21 08/02/2020 lipid panel , serum HDL cholesterol 53 mg/dL 40- Not Available [facility] (Lab) [address] [place], [address], 08/02/2020 17:46:51 08/03/19 21 08/02/2020 lipid panel [...] WILL NOT BE REPOR KELI. Not Available [facility] (Lab) [address] [place], [address], 08/02/2020 17:46:51 08/03/19 21 08/02/2020 CMP, serum or plasm a sodium 139 mmol/ L 137-14 5 Not Available [facility] (Lab) [address] [place], [address], 08/02/2020 17:46:43 08/03/19 21 08/02/2020 CMP, serum or plasm a potassium 4.3 mmol/ L 3.5-5. 1 Not Available [facility] (Lab) [address] [place], [address], 08/02/2020 17:46:43 08/03/19 21 08/02/2020 CMP, serum or plasm a chloride 104 mmol/ L 98-107 Not Available [facility] (Lab) [address] [place], [address], 08/02/2020 17:46:43 08/03/19 21 08/02/2020 CMP, serum or plasm a carbon dioxide 29 mmol/ L 22-30 Not Available [facility] (Lab) [address] [place], [address], 08/02/2020 17:46:43 08/03/19 21 08/02/2020 CMP, serum or plasm a agap 10.3 mmol/ L 14-22 low Not Available [facility] (Lab) [address] [place], [address], 08/02/2020 17:46:43 08/03/19 21 08/02/2020 CMP, serum or plasm a glucose 75 mg/dL 70-99 Not Available [facility] (Lab) [address] [place], [address], 08/02/2020 17:46:43 08/03/19 21 08/02/2020 CMP, serum or plasm a BUN 10 mg/dL 8-19 Not Available [facility] (Lab) [address] [place], [address], 08/02/2020 17:46:43 08/03/19 21 08/02/2020 CMP, serum or plasm a creatinine 0.70 mg/dL 0.66-1 .25 Not Available [facility] (Lab) [address] [place], [address], 08/02/2020 17:46:43 08/03/19 21 08/02/2020 CMP, serum or plasm a GFR >60 Refer ence Range : [place] ge GFR Healt hy Adult : >60 [...] lator can be locat ed on the [facility] websi te: [email or web address] :[email or web address]/pr ofess ional s/kdo qi/gf r_cal culat or Not Available [facility] (Lab) [address] [place], [address], 08/02/2020 17:46:43 08/03/19 21 08/02/2020 CMP, serum or plasm a alkaline phosphatase 51 U/L 38-126 Not Available [facility] (Lab) [address] [place], [address], 08/02/2020 17:46:43 08/03/19 21 08/02/2020 CMP, serum or plasm a alanine aminotransfe rase 12 U/L 0-35 Not Available [facility] (Lab) [address] [place], [address], 08/02/2020 17:46:43 08/03/19 21 08/02/2020 CMP, serum or plasm a aspartate aminotransfe rase 21 U/L 15-37 Not Available [facility] (Lab) [address] [place], [address], 08/02/2020 17:46:43 08/03/19 21 08/02/2020 CMP, serum or plasm a bilirubin, total 0.40 mg/dL 0.20-1 .30 Not Available [facility] (Lab) [address] [place], [address], 08/02/2020 17:46:43 08/03/19 21 08/02/2020 CMP, serum or plasm a calcium 9.7 mg/dL 8.4-10 .2 Not Available [facility] (Lab) [address] [place], [address], 08/02/2020 17:46:43 08/03/19 21 08/02/2020 CMP, serum or plasm a total protein 7.3 g/dL 6.3-8. 2 Not Available [facility] (Lab) [address] [place], [address], 08/02/2020 17:46:43 08/03/19 21 08/02/2020 CMP, serum or plasm a albumin 4.7 g/dL 3.4-5. 0 Not Available [facility] (Lab) [address] [facility] [place], [address], 08/02/2020 17:46:43 08/03/19 21 08/02/2020 CMP, serum or plasm a globulin 2.6 g/dL 2.6-4. 2 Not Available [facility] (Lab) [address] [place], [address], 08/02/2020 17:46:43 08/03/1908/02/2020 CMP, serum or plasm a A/G ratio 1.8 ratio 1.0-2. 0 Not Available [facility] (Lab) [address] [place], [address], 08/02/2020 17:46:43 08/03/19 21 08/02/2020 urina lysis compl ete, refle x cultu re color light- yellow Not Available [facility] (Lab) [address] [place], [address], 08/02/2020 17:27:27 08/03/1908/02/2020 urina lysis compl ete, refle x cultu re appear turbid abnormal Not Available [facility] (Lab) [address] [place], [address], 08/02/2020 17:27:27 08/03/1908/02/2020 urina lysis compl ete, refle x cultu re specific gravity 1.021 1.001- 1.030 Not Available [facility] (Lab) [address] [place], [address], 08/02/2020 17:27:27 08/03/19 21 08/02/2020 urina lysis compl ete, refle x cultu re pH 7.5 pH_un its 5.0-9. 0 Not Available [facility] (Lab) [address] [place], [address], 08/02/2020 17:27:27 08/03/19 21 08/02/2020 urina lysis compl ete, refle x cultu re leukocytes negati ve carmencita/u L negati ve- Not Available [facility] (Lab) [address] [place], [address], 08/02/2020 17:27:27 08/03/19 21 08/02/2020 urina lysis compl ete, refle x cultu re nitrite negati ve negati ve- Not Available [facility] (Lab) [address] [place], [address], 08/02/2020 17:27:27 08/03/19 21 08/02/2020 urina lysis compl ete, refle x cultu re protein negati ve mg/dL negati ve- Not Available [facility] (Lab) [address] [place], [address], 08/02/2020 17:27:27 08/03/19 21 08/02/2020 urina lysis compl ete, refle x cultu re glucose normal mg/dL normal - Not Available [facility] (Lab) [address] [place], [address], 08/02/2020 17:27:27 08/03/19 21 08/02/2020 urina lysis compl ete, refle x cultu re ketones negati ve mg/dL negati ve- Not Available [facility] (Lab) [address] [place], [address], 08/02/2020 17:27:27 08/03/19 08/02/2020 urina lysis compl ete, refle x cultu re urobilinogen normal mg/dL normal - Not Available [facility] (Lab) [address] [place], [address], 08/02/2020 17:27:27 08/03/19 21 08/02/2020 urina lysis compl ete, refle x cultu re bilirubin negati ve mg/dL negati ve- Not Available [facility] (Lab) [address] [place], [address], 08/02/2020 17:27:27 08/03/19 21 08/02/2020 urina lysis compl ete, refle x cultu re blood negati ve mg/dL negati ve- Not Available [facility] (Lab) [address] [place], [address], 08/02/2020 17:27:27 08/03/19 21 08/02/2020 urina lysis compl ete, refle x cultu re white blood cells 0-8 /i??h pfi?? 0-8 Not Available [facility] (Lab) [address] [place], [address], 08/02/2020 17:27:27 08/03/19 21 08/02/2020 urina lysis compl ete, refle x cultu re red blood cells 0-4 /i??h pfi?? 0-4 Not Available [facility] (Lab) [address] [place], [address], 08/02/2020 17:27:27 08/03/19 21 08/02/2020 urina lysis compl ete, refle x cultu re bacteria none Not Available [facility] (Lab) [address] [place], [address], 08/02/2020 17:27:27 08/03/19 21 08/02/2020 urina lysis compl ete, refle x cultu re squamous epithelial modera te /i??l pfi?? abnormal Not Available [facility] (Lab) [address] [place], [address], 08/02/2020 17:27:27 08/03/19 21 08/02/2020 urina lysis compl ete, refle x cultu re amorphous crystal occasi onal /i??h pfi?? abnormal Not Available [facility] (Lab) [address] [place], [address], 08/02/2020 17:27:27 08/03/19 21 08/02/2020 CBC w/ auto diff white blood cells 11.5 x10'3 /uL 4.2-10 .8 high Not Available [facility] (Lab) [address] [place], [address], 08/02/2020 16:48:23 08/03/19 21 08/02/2020 CBC w/ auto diff red blood cells 4.54 x10'6 /uL 3.80-5 .20 Not Available [facility] (Lab) [address] [place], [address], 08/02/2020 16:48:23 08/03/19 21 08/02/2020 CBC w/ auto diff hemoglobin 13.4 g/dL 12.0-1 5.6 Not Available [facility] (Lab) [address] [place], [address], 08/02/2020 16:48:23 08/03/19 21 08/02/2020 CBC w/ auto diff hematocrit 40.3 % 35.7-4 5.7 Not Available [facility] (Lab) [address] [place], [address], 08/02/2020 16:48:23 08/03/19 21 08/02/2020 CBC w/ auto diff mean red cell volume 88.8 fL 82.0-9 9.0 Not Available [facility] (Lab) [address] [place], [address], 08/02/2020 16:48:23 08/03/19 21 08/02/2020 CBC w/ auto diff mean red cell hemoglobin 29.5 pg 27.0-3 3.0 Not Available [facility] (Lab) [address] [place], [address], 08/02/2020 16:48:23 08/03/19 21 08/02/2020 CBC w/ auto diff mean RBC HGB concentratio n 33.3 g/dL 31.0-3 6.0 Not Available [facility] (Lab) [address] [place], [address], 08/02/2020 16:48:23 08/03/19 21 08/02/2020 CBC w/ auto diff red cell distribution width 13.2 % 11.8-1 5.5 Not Available [facility] (Lab) [address] [place], [address], 08/02/2020 16:48:23 08/03/19 21 08/02/2020 CBC w/ auto diff platelets 304 x10'3 /uL 150-40 0 Not Available [facility] (Lab) [address] [place], [address], 08/02/2020 16:48:23 08/03/19 21 08/02/2020 CBC w/ auto diff mean platelet volume 10.1 fL 9.0-12 .4 Not Available [facility] (Lab) [address] [place], [address], 08/02/2020 16:48:23 08/03/19 21 08/02/2020 CBC w/ auto diff neutrophils 66.5 % 39.0-7 2.0 Not Available [facility] (Lab) [address] [place], [address], 08/02/2020 16:48:23 08/03/19 21 08/02/2020 CBC w/ auto diff lymphocytes 18.2 % 16.0-4 7.0 Not Available [facility] (Lab) [address] [place], [address], 08/02/2020 16:48:23 08/03/19 21 08/02/2020 CBC w/ auto diff monocytes 8.9 % 5.0-12 .0 Not Available [facility] (Lab) [address] [place], [address], 08/02/2020 16:48:23 08/03/19 21 08/02/2020 CBC w/ auto diff eosinophils 4.8 % 1.0-7. 0 Not Available [facility] (Lab) [address] [place], [address], 08/02/2020 16:48:23 08/03/19 21 08/02/2020 CBC w/ auto diff basophils 0.8 % 0.0-2. 0 Not Available [facility] (Lab) [address] [place], [address], 08/02/2020 16:48:23 08/03/19 21 08/02/2020 CBC w/ auto diff immature granulocytes 0.8 % 0.00-0 .50 high Not Available [facility] (Lab) [address] [place], [address], 08/02/2020 16:48:23 08/03/19 21 08/02/2020 CBC w/ auto diff neutrophils, absolute count 7.66 x10'3 /uL 1.5-8. 0 Not Available [facility] (Lab) [address] [place], [address], 08/02/2020 16:48:23 08/03/19 21 08/02/2020 CBC w/ auto diff lymphocytes, absolute count 2.09 x10'3 /uL 1.07-3 .43 Not Available [facility] (Lab) [address] [place], [address], 08/02/2020 16:48:23 08/03/19 21 08/02/2020 CBC w/ auto diff monocytes, absolute count 1.03 x10'3 /uL 0.29-0 .99 high Not Available [facility] (Lab) [address] [place], [address], 08/02/2020 16:48:23 08/03/19 21 08/02/2020 CBC w/ auto diff eosinophils, absolute count 0.55 x10'3 /uL 0.02-0 .53 high Not Available [facility] (Lab) [address] [place], [address], 08/02/2020 16:48:23 08/03/19 21 08/02/2020 CBC w/ auto diff basophils, absolute count 0.09 x10'3 /uL 0.01-0 .08 high Not Available [facility] (Lab) [address] [place], [address], 08/02/2020 16:48:23 08/03/19 21 08/02/2020 CBC w/ auto diff immature granulocytes ,absolute 0.09 x10'3 /uL 0.00-0 .05 high Not Available [facility] (Lab) [address] [place], [address], 08/02/2020 16:48:23 08/03/19 21 08/02/2020 CBC w/ auto diff nucleated red blood cells 0.0 % -0 Not Available [facility] (Lab) [address] [place], [address], 08/02/2020 16:48:23 08/03/19 21 08/02/2020 CBC w/ auto diff NRBC# 0.00 x10'3 /uL Not Available [facility] (Lab) [address] [place], [address], 08/02/2020 16:48:23 08/27/19 21 08/27/2020 CT, NG, TRICH VAG BY LATISHA chlamydia by LATISHA negati ve negati ve Not Available [facility] ([facility]) [address] [place], [address], 08/28/2020 06:12:24 08/27/19 21 08/27/2020 CT, NG, TRICH VAG BY LATISHA gonococcus by LATISHA negati ve negati ve Not Available [facility] ([facility]) [address] [place], [address], 08/28/2020 06:12:24 08/27/19 21 08/27/2020 CT, NG, TRICH VAG BY LATISHA trich vag by LATISHA negati ve negati ve Not Available [facility] ([facility]) [address] [place], [address], 08/28/2020 06:12:24 08/28/19 21 08/27/2020 pregn elio test, urine HCG negati ve Not Available [facility] [place] [address] [facility], [address], [address], 08/26/2020 16:54:07 08/14/19 21 08/12/2020 US, pelvi s, trans abdom inal + trans vagin al [facility] [address] [facility] [place] [address] [phone] Patien t Name: CHARIS ODONNELL Access ion #: [id number] Sex: F : 1995 0 Locati [...] the pelvis . Page [facility] Name: CHARIS ODONNELL Access ion #: [id number] Sex: F : 1995 0 Exam [...] 7:23 AM (CT) Page 2 of 2 [id number] [facility] (Imaging) [address] [place], [address], 04/29/2022 20:21:16 09/29/19 25 09/26/2024 home sleep study No observ ation record ed. [facility] [address] [place], [address], 10/09/2024 18:13:33 Result Notes None recorded. Problems Name Problem SNOMED Code Status Onset Date Resolution Date Notes Provider Name and Address Organization Details Recorded Time Depressive disorder 27025222 Active 021 Oscar Rodríguez MD [address] [facility], [place] [address], [place], [address], [facility] 5 18:31:36 Anxiety 43865531 Active 021 Oscar Rodríguez MD [address] [facility], [place] [address], [place], [address], [facility] 5 18:31:40 Excessive daytime sleepiness - normal night sleep 890500150 Active 025 Antonia Valle NP [address] [facility], [facility] [address], [place], [address], [facility] 5 15:57:32 Notes:[facility] home sleep study 09/26/24, AHI = 1 Medical History: ADHD/Depression/Anxiety Mild OSAHS, AHI = 1, 09/26/24 VIRI Vit D deficiency Procedure History: Spinal 2010 T&A Endoscopic sinus surgery Problem Notes None recorded. Procedures Surgical History Date Name Laterality Status Provider Name and Address Organization Details Recorded Time Sinus Surgery completed Not Available [facility] 04/29/2022 20:19:31 Back Surgery completed Not Available [facility] 04/29/2022 20:19:31 Remove tonsils and adenoids completed Not Available [facility] 04/29/2022 20:19:31 Imaging Results None recorded. Procedure Notes None recorded. Medical Equipment None Reported. Allergies Allergen ID Allergen Name Allergen Category Reaction Reaction Severity Criticality Documentation Date Start Date Code Code System Note Provider Name and Address Organization Details Recorded Time 91428 Substance with sulfonami de structure and antibacte rial mechanism of action (substanc e) medicatio n rash Not available Not available 04/29/2022 64269 8003 SNOMED Not Available [facility] 3 20:21:14 Medications Name Sig Start Date [...] mass index (BMI) Body height Oxygen saturation Heart rate Body temperature Body weight Systolic And Diastolic Provider Name and Address Organization Details Last Updated DateTime 1 28 kg/m2 160.02 cm 98 % 85 /min 98 [degF] 74253.5 9 g 116/80 mm[Hg] Not Available [facility] 3 20:19:57 Date Recorded Body mass index (BMI) Body height Body weight Systolic And Diastolic Provider Name and Address Organization Details Last Updated DateTime 08/26/2020 27.8 kg/m2 160.02 cm 36798 g 120/80 mm[Hg] Not Available [facility] 04/29/2022 20:19:57 Date Recorded Body weight Heart rate Oxygen saturation Body temperature Systolic And Diastolic Provider Name and Address Organization Details Last Updated DateTime 5 86907.1 1 g 106 /min 98 % 98.2 [degF] 124/68 mm[Hg] Fadia Mishra MA [facility] 5 15:04:46 Date Recorded Body weight Body temperature Heart rate Oxygen saturation Body mass index (BMI) Body height Systolic And Diastolic Provider Name and Address Organization Details Last Updated DateTime 5 55553.2 2 g 98.3 [degF] 102 /min 98 % 31.1 kg/m2 162.56 cm 122/80 mm[Hg] Fadia Mishra MA [facility] 5 15:45:44 Date Recorded Body mass index (BMI) Body height Body temperature Body weight Systolic And Diastolic Provider Name and Address Organization Details Last Updated DateTime 11/25/2020 28.3 kg/m2 160.02 cm 97.9 [degF] 54668.7 8 g 119/78 mm[Hg] Not Available [facility] 20:19:57 Social History Question Answer Notes LastModified by Organizat ion Details LastModified Time Tobacco Smoking Status Never Smoker Not Available [facility] 04/29/2022 20:19:29 What Is Your Level Of Caffeine Consumption? Moderate [id number] Information not available 04/29/2022 How Much Tobacco Do You Chew? None [id number] 0145 Information not available 04/29/2022 In The 14 Days Before Symptom Onset, Have You Had Close Contact With A Laboratory-confirm ed COVID-19 While That Case Was Ill? No [id number] Information not available 04/29/2022 In The 14 Days Before Symptom Onset, Have You Had Close Contact With A Person Who Is Under Investigation For COVID-19 While That Person Was Ill? No [id number].[id number] Information not available 04/29/2022 What Type Of Diet Are You Following? REGULAR [id number].[id number] 8894 Information not available 04/29/2022 Which Illicit Or Recreational Drugs Have You Used? No MIGRATION.[id number] 9706 Information not available 04/29/2022 Do You Have An Electrostatic Air Filter? No Information not available 09/14/2024 Are There Any Guns Present In Your Home? No [id number].[id number] 1903 Information not available 04/29/2022 Do You Have [...] How Much Tobacco Do You Smoke? No MIGRATION.816347 2647 Information not available 04/29/2022 Do You Use [...] is your level of alcohol consumption? None MIGRATION.126011 7905 Information not available 04/29/2022 Do you or have you ever used smokeless tobacco? Never used smokeless tobacco MIGRATION.764363 4449 Information not available 04/29/2022 Have you been exposed to chemicals or toxins? not that aware of Information not available 09/14/2024 Do you or have you ever used e-cigarettes or vape? Former user of electronic cigarettes Information not available 09/14/2024 What is your exercise level? None MIGRATION.[id number] 8177 Information not available 04/29/2022 Mental Status Question Answer Note LastModified by Organization D etails LastModified Time Do you feel stressed (tense, restless, nervous, or anxious, or unable to sleep at night)? [id number] Information not available 09/14/2024 Family History Relationship Description Onset Age of this Age Resolved Age Notes LastModified by Organization Details LastModified Time Mother Anxiety disorder [id number] Not available 04/29/2022 20:19:32 Mother Depressive disorder [id number] [id number] Not available 04/29/2022 20:19:32 Sister Anxiety disorder [id number] [id number] Not available 04/29/2022 20:19:32 Sister Depressive disorder [id number] [id number] Not available 04/29/2022 20:19:33 Mother Asthma [email or web address] Not available 16:55:55 Mother Attention deficit hyperactivit y disorder [email or web address] Not available 09/27 16:56:03 Brother Attention deficit hyperactivit y disorder u5 Not available 09/27 16:56:23 Father Diabetes mellitus [email or web address] Not available 2024 16:56:37 Sister Thyroid dysfunction [email or web address] Not available 08/31 16:56:57 Maternal Aunt Alcohol dependence [email or web address] Not available 09/27 16:57:43 Medical History Condition Response ANXIETY DISORDER Y ECZEMA Y SLEEP APNEA Y CHICKENPOX Y SKIN PROBLEMS Y DEPRESSION (INCLUDING POST ) Y BACK / NECK PROBLEMS Y HEARTBURN / REFLUX Y HAVE YOU BEEN HOSPITALIZED OR SEEN IN [facility] ER IN THE PAST YEAR ? [...] ICD10 Code Diagnosis IMO Codes Diagnosis Note [id number] Cristine kelly MD [facility] Internal Med [facility] [address] [place] [address] 1 08/02/2020 00:00:00 08/02/2020 15:57:22 [id number] Cristine kelly MD [facility] Internal Med [facility] [address] [place] [address] 1 08/09/2020 00:00:00 08/09/2020 17:12:13 [id number] [facility] _ATHENA_M IGRATION_ DEFAULT_1 _1 , 08/26/2020 00:00:00 08/26/2020 18:24:25 [id number] [facility] _ATHENA_M IGRATION_ DEFAULT_1 _1 , 11/25/2020 00:00:00 11/25/2020 16:23:15 [id number] Annabelle Denney NP [facility] [address] [place] [address] 1 08/13/2020 00:00:00 08/13/2020 11:06:48 [id number] Annabelle Denney NP [facility] [address] [place] [phone] 10/02/2020 00:00:00 10/02/2020 18:04:03 [id number] Annabelle Denney NP [facility] [address] [place] [phone] 1 10/30/2020 00:00:00 10/30/2020 14:54:00 [id number] Annabelle Denney NP [facility] [address] [place] [phone] 1 11/28/2020 00:00:00 11/28/2020 15:54:58 [id number] Annabelle Denney NP [facility] [address] [place] [phone] 12/18/2020 00:00:00 12/18/2020 16:46:49 [id number] Antonia Valle NP [facility] [address] [place] [phone] 09/14/2024 14:47:13 09/25/2024 16:47:27 Sleep apnea 70320479 G47.30 G47.33 G47.10 [id number] Sleep study order todayESS-8 Discussed sleep hygeineAdv [...] signs and symptoms of concernF/u after testing [id number] Oscar Rodríguez MD [facility] [address] [phone] 10/12/2024 15:20:05 10/13/2024 15:51:37 Excessive daytime sleepiness - normal night sleep 680097526 G47.19 [id number] Sleep study with AHI-1.She is -d iscussed [...] Sharma Member ID Guarantor Name 10/12/2024 1 [facility] (MEDICAID HMO) [id number] Charis Peres [id number] Charis Peres Notes Date Note Type Note [...] For timing, patient reportsdaily. For duration, patient uddcaod1hehss. For context, patient reportsobserved apneaandsleep hours per night10. For aggravating factors, patient reportsnone. For alleviating factors, patient reportsnone.Patient is 20 weeks Was diagnosed 5 years ago but did not use the CPAP-now waking up panicked because she can't breathe Antonia Valle NP [address], [place], [place], [id number], [place] 09/14/2024 15:43:53 10/12/2024 text/html Patient is here today for follow-up for sleep study. She notes she continues to be tired. She is due to have her baby in January. She notes no improvement of her s/s. Antonia Valle NP [address], [address], [place], [address], [place] 10/12/2024 16:00:14 OBGyn Episode No OBEpisode recorded.
[2025-01-23 05:46] LABS: Hematocrit 33.3 % (37.0-47.0); Hemoglobin 11.2 g/dL (12.0-15.0); Immature Granulocyte Percent A 2.6 % (0-0.5); Lymphocytes Absolute Auto 2.14 K/mm3 (0.9-3.2); Mean Corpuscular HGB Conc 33.6 g/dl (32-36); Mean Corpuscular Hemoglobin 29.3 pg (26-34); Mean Corpuscular Volume 87.2 fl (80-100); Nucleated Red Blood Cells Absolute Auto 0.000 K/mm3 (0.0-0.012); Nucleated Red Blood Cells Perc 0.0 % (0.0-0.2); Platelet Count Result 210 k/mm3 (150-375); Red Blood Count 3.82 M/mm3 (4.2-5.4); White Blood Count 13.7 K/mm3 (4.5-10.0)
--- NOTE | 2025-01-23 05:46 | LDADM ---
This patient, Charis Peres, was admitted to Labor/Delivery/Recovery 103 on 01/23/25 at 04:52. Plans for labor, pain management and were discussed with patient. Patient/family oriented to hospital policies and general routines including ID bracelet, bed and alarms, visiting hours, pain management, procedures, bathroom and other care routines, personal items, smoking policy, room service/diet and guest tray routines, security routines, and visiting hours. Patient/Family are encouraged to report perceived risks to care and to ask questions if they do not understand what they are told or what they should do. See OBIX for further documentation.
[2025-01-23 06:05] LABS: Alanine Aminotransferase 23 U/L (6-35); Albumin Level 3.6 g/dL (3.5-5.1); Alkaline Phosphatase 127 U/L (38-126); Anion Gap 6 mmol/L (4-12); Aspartate Amino Transferase 29 U/L (14-36); Bilirubin,Total 0.4 mg/dL (0.2-1.3); Blood Urea Nitrogen 13 mg/dL (7-17); Calcium 9.2 mg/dL (8.4-10.2); Carbon Dioxide 21 mmol/L (22-30); Chloride 105 mmol/L (98-107); Estimated Glomerular Filt Rate > 60; Glucose 82 mg/dL (65-110); Potassium 3.9 mmol/L (3.4-5.0); Sodium 132 mmol/L (137-145); Total Protein 6.5 g/dL (6.3-8.2)
[2025-01-23] MEDS: LACTATED RINGERS 1,000 ML 125 ML IV CONT (06:11)
[2025-01-23] MEDS: OXYTOCIN 30 UNITS/NS 500 ML 30 UNITS/500 ML BAG 6 UNITS IV CONT (06:17)
[2025-01-23 06:33] LABS: Syphilis IgG/IgM Antibody Non-Reactive (Nonreactive)
--- NOTE | 2025-01-23 07:35 | WPDOBADMIT ---
Obstetrics - Admit Note Admission Note: record reviewed. No pertinent additions to the history and/or any subsequent changes in the physical findings that are not consistent with the expected course of the were found. Additions to the history and/or subsequent changes in the physical findings follow. Here for MIL @ 39 wks. Cervix ft/50/-2. Pitocin per protocol. FHTs category I.
[2025-01-23] MEDS: ACETAMINOPHEN 500 MG TABLET 1000 MG PO (07:50)
--- NOTE | 2025-01-23 08:21 | WPDANESEPP ---
Anes - Eval Pre Procedure Procedure: labor epidural Date/Time: 01/23/25 08:21 Surgeon: mark Preop Diagnosis: pain during labor Pre Op Diagnosis: IOL Patient Data Age: 29 Gender: F Height: 1.63 m Weight: 93.2 kg Last Vital Signs Temp 36.7 C 01/23/25 08:01 Pulse 99 01/23/25 08:15 Resp 18 01/23/25 08:01 BP 128/81 01/23/25 08:15 Pulse Ox 100 01/23/25 08:16 Allergies Allergy/AdvReac Type Severity Reaction Status Date / Time Sulfa (Sulfonamide Allergy Unknown RASH Verified 01/23/25 05:43 Antibiotics) ITCHING Home Medications ?Medication ?Instructions ?Recorded ?Confirmed ?Type aspirin 81 mg tablet 81 mg PO DAILY 01/06/25 01/23/25 History omeprazole 40 mg capsule,delayed 40 mg PO DAILY 01/06/25 01/23/25 History release vit no.95-ferrous 1 tablet PO DAILY 01/06/25 01/23/25 History fumarate 28 mg-folic acid 800 mcg tablet () Laboratory Tests 01/23/25 01/23/25 05:24 08:08 WBC 13.7 H K/mm3 (4.5-10.0) RBC 3.82 L M/mm3 (4.2-5.4) Hgb 11.2 L g/dL (12.0-15.0) Hct 33.3 L % (37.0-47.0) MCV 87.2 fl (80-100) MCH 29.3 pg (26-34) MCHC 33.6 g/dl (32-36) RDW 13.9 % (11.5-14.5) Plt Count 210 k/mm3 (150-375) MPV 10.1 fl (7.4-10.4) Immature Gran % (Auto) 2.6 H % (0-0.5) Neut % (Auto) 69.7 % (45.5-73.1) Lymph % (Auto) 15.6 L % (18.3-44.2) Drew % (Auto) 9.5 H % (2.6-8.5) Eos % (Auto) 2.1 % (0-4.4) Baso % (Auto) 0.5 % (0.2-1.2) Lymph # (Auto) 2.14 K/mm3 (0.9-3.2) Drew # (Auto) 1.3 H K/mm3 (0.1-0.6) Eos # (Auto) 0.3 K/mm3 (0-0.3) Baso # (Auto) 0.1 K/mm3 (0.0-0.1) Abs Immat Gran (auto) 0.35 H K/mm3 (0.00-0.031) Absolute Neuts (auto) 9.6 H K/mm3 (1.3-6.7) Absolute Nucleated RBC 0.000 K/mm3 (0.0-0.012) Nucleated RBC % 0.0 % (0.0-0.2) Sodium 132 L mmol/L (137-145) Potassium 3.9 mmol/L (3.4-5.0) Chloride 105 mmol/L (98-107) Carbon Dioxide 21 L mmol/L (22-30) Anion Gap 6 mmol/L (4-12) BUN 13 D mg/dL (7-17) Creatinine 0.61 L mg/dL (0.7-1.0) Estim Creat Clear Calc Not Reportable Estimated GFR > 60 (59 - ) Glucose 82 mg/dL (65-110) POC Capillary Glucose 114 H mg/dl (65-105) Calcium 9.2 mg/dL (8.4-10.2) Total Bilirubin 0.4 mg/dL (0.2-1.3) AST 29 U/L (14-36) ALT 23 U/L (6-35) Alkaline Phosphatase 127 H U/L (38-126) Total Protein 6.5 g/dL (6.3-8.2) Albumin 3.6 g/dL (3.5-5.1) Syphilis IgG/IgM Ab Non-reactive (Nonreactive) Blood Type A Positive Antibody Screen Negative Patient hx anesthesia problems: none Family hx anesthesia problems: none Results Review: All pre-operative results and documents have been reviewed as part of the pre-operative evaluation. [facility] Past Medical History Medical History (Updated 01/23/25 @ 08:22 by Ashly Lopez CRNA) IUP (intrauterine ), incidental Sleep apnea Anxiety disorder ADHD (attention deficit hyperactivity disorder) Spinal cord cysts surgically removed 2011 Surgical History Surgical History History of back surgery H/O sinus surgery History of tonsillectomy and adenoidectomy Family History Family History (Updated 01/06/25 @ 10:51 by Bertha Zaragoza RN) Mother Anxiety Depression Sibling Anxiety Depression Father Diabetes mellitus Social History Social History Years smoked: 2 Smoking status: Former smoker Tobacco type: e-cigarettes/vaping Alcohol intake: current Alcohol use details: social Substance use: never Lack of Transportation: No Lack of Food: Never True Current Housing: I Have Housing Concerned About Future Housing: No Difficulty Paying Gas/Electric Bills: No Difficulty Paying for Meds: No Currently Unemployed: No Education: High School Diploma/GED Difficulty w/ Childcare or Family Care: No Living arrangements: with family Gender identity (if verbalized by the patient): Female Spiritual care concerns: No Exam Day of Procedure 01/23/25 08:21
[2025-01-24] VITALS (109 sets, daily range): BP systolic 52–138; BP diastolic 22–94; PULSE 60–129; RESP 17–18; TEMP 36.3–36.7; O2SAT 98–100
[2025-01-24] MEDS: LACTATED RINGERS 1,000 ML 125 ML IV CONT (07:26)
--- NOTE | 2025-01-24 07:44 | PM.OBPNLAB ---
Pain Control Date/time seen: 01/24/25 07:44 Pain control: tolerating well Pelvic Exam Dilation (cm): 0 (FT) Effacement (%): 50 station: -3 Amniotic membrane status: Intact Comments: VTX by ultrasound Contractions Monitor mode: External Contraction pattern: Irregular Contraction intensity: Mild Status status: Category l Assessment and Plan Pitocin rate (mU/min): 30 Assessment: induction ongoing Plan: other (Discussed with patient and recommend dc home for failed induction and return on Wednesday for cervadil. Patient agrees)
--- NOTE | 2025-01-24 07:46 | P.DS_ITS ---
DS: Admitting Diagnosis Discharge Date 01/24/25 Admitting Diagnosis IUP 39 wks for MIL GDMA1 DS: Discharge Diagnosis Discharge Diagnosis (1) Failed induction of labor: Code(s): O61.9 - Failed induction of labor, unspecified Status: Acute DS: Summary Hospital Course Hospital Course: Patient received Pitocin, Cytotec and then Pitocin with minimal cervical change. DC home to try again on Wednesday. Status at Discharge Functional status at discharge: independent ambulation Overall status at discharge: patient is back to baseline Time Spent with Patient Time attestation: Total time spent providing and/or coordinating discharge services: DS: Data Data Completed and Pending Labs on day of discharge: Labs from last 24 hours 01/23/25 01/23/25 01/23/25 19:22 13:30 08:08 POC Capillary Glucose 134 H 122 H 114 H Discharge Plan Discharge Attending physician on discharge: Myriam Pretty Discharging Clinician: Myriam Pretty Anticipated Discharge Date/Time: 01/24/25 07:48 Patient Disposition: Home Activity: as tolerated Diet: gestational diabetic Patient Instructions: Antibiotic Form Patient Language: Estonian Stand Alone Forms: General Discharge Information Follow-up/Referrals: Myriam Pretty MD [Physician, INSPECTOR WELDED PARTS] Referral Note: Return Wednesday for [facility] at 4 pm Discharge Medications: Continued PNV no.95-ferrous fumarate-FA [] 28 mg iron- 800 mcg tablet 1 tablet PO DAILY omeprazole 40 mg capsule,delayed release(DR/EC) 40 mg PO DAILY Discontinued aspirin 81 mg tablet 81 mg PO DAILY Date of admission: 01/23/25 04:52 Primary Care Provider: Nickie,Charis Marmolejo Admitting Provider: Myriam Pretty Attending physician on admission: Myriam Pretty Condition: Stable
[2025-01-24] MEDS: ACETAMINOPHEN 500 MG TABLET 1000 MG PO (07:52)
== END 2025-01-24 09:50 | disposition home or self-care (01) | DRG 955 ==
PROVIDERS: Admitting Provider Obstetrics & Gynecology Gynecology; PCP Emergency Medicine; Visit Provider Obstetrics & Gynecology Gynecology
DX: O24.420 Gestational diabetes mellitus in childbirth, diet controlled (principal); Z3A.39 39 weeks gestation of pregnancy; O61.0 Failed medical induction of labor
CPT/HCPCS: 36415; 80053; 82948; 85025; 86593; 86850; 86900; 86901; A9270; J2590; J7120

== ENCOUNTER 2025-01-28 16:00 | Inpatient (IN) | payer OTHER, SELFPAY ==
[2025-01-28] VITALS (47 sets, daily range): BP systolic 105–141; BP diastolic 67–91; PULSE 84–118; TEMP 36.6–36.7; O2SAT 97–100; BMI 35.2
--- OUTSIDE RECORDS SUMMARY | 2025-01-28 16:04 | XMS_ITS | Clinical Summary ---
Author Organization [facility] Address [address] [place] [address] Phone Care Team Providers Care Electric Arc Furnace Operator Name Role Phone Varun Chavez MD Primary [...] making a change Department associated with goal: [facility] Steps to achieve [...] track(2021 2:25 PM CDT) Yes Sandra Rich, [facility] Insurance MEDICAID [employer] Care Teams Electric Arc Furnace Operator Relationship Specialty Start Date End Date Varun Chavez MD PCP - General Internal Medicine 11/13/21
--- OUTSIDE RECORDS SUMMARY | 2025-01-28 16:04 | XMS_ITS | Encounter Summary ---
Author Organization [facility] Address [address] [place] [address] Care Team Providers Care Furnace Mechanic Name Role Phone Unavailable Primary Care Provider Unavailabl e Encounter Details Date Type Department Care Team (Late st Contact Info) Description 03/22/2002 Outpatient Historical [facility] Pediatrics [address] [place] [address] Mrutaza Mcnulty MD [address] [place] [address] Social History Tobacco Use Types Packs/Day Years Used Date Smoking Tobacco: Never Assessed Comments Unknown Sex and Gender Information Value Date Recorded Sex Assigned at Not on file Legal Sex Female 2:44 AM PHYSICIST SOLID EARTH Gender Identity Not on file Sexual Orientation Not on file documented as of this encounter Plan of Treatment Not on file documented as of this encounter Visit Diagnoses Not on filedocumented in this encounter
--- OUTSIDE RECORDS SUMMARY | 2025-01-28 16:04 | XMS_ITS | Patient Health Record ---
Author Organization [facility] Address [address] [place], [place] [id number] Support Name Relationship Address Phone MAGALIE MOYA Emergency Contact Unknown ANNIKA ALVARES Guarantor Unknown [phone] Reason For Referral No Information Social History Social History Additional Details Category Social Info Options Details Migrated Social History Migrated Social History History of tobacco use : , Smoking Status : Never smoked Plan Of Treatment No Information Insurance Providers Payer Name Payer Address Payer Phone Subscriber Number Group Number Insured Name Patient Relationship to Insured Coverage Start Date Coverage End Date [facility] [address] [place] [address] [id number] ANNIKA ALVARES Self - patient is the insured
--- OUTSIDE RECORDS SUMMARY | 2025-01-28 16:04 | XMS_ITS | Encounter Summary ---
Author Organization [facility] Address [address] [place] [address] Care Team Providers Care Registrar Museum Name Role Phone Unavailable Primary Care Provider Unavailabl e Encounter Details Date Type Department Care Team (Late st Contact Info) Description 01/09/2004 Outpatient Historical [facility] Pediatrics [address] [place] [address] Murtaza Mcnulty MD [address] [place] [address] Social History Tobacco Use Types Packs/Day Years Used Date Smoking Tobacco: Never Assessed Comments Unknown Sex and Gender Information Value Date Recorded Sex Assigned at Not on file Legal Sex Female 2:44 AM SCENE PAINTER Gender Identity Not on file Sexual Orientation Not on file documented as of this encounter Plan of Treatment Not on file documented as of this encounter Visit Diagnoses Not on filedocumented in this encounter
--- OUTSIDE RECORDS SUMMARY | 2025-01-28 16:04 | XMS_ITS | Encounter Summary ---
Author Organization [facility] Address [address] [place] [address] Care Team Providers Care Poultry Scalder Name Role Phone Unavailable Primary Care Provider Unavailabl e Encounter Details Date Type Department Care Team (Late st Contact Info) Description 11/28/1998 Outpatient Historical [facility] Pediatrics [place] [address] [place] [address] Moises Guerrero Social History Tobacco Use Types Packs/Day Years Used Date Smoking Tobacco: Never Assessed Comments Unknown Sex and Gender Information Value Date Recorded Sex Assigned at Not on file Legal Sex Female 2:44 AM ASSISTANT LIBRARIAN Gender Identity Not on file Sexual Orientation Not on file documented as of this encounter Plan of Treatment Not on file documented as of this encounter Visit Diagnoses Not on filedocumented in this encounter
--- OUTSIDE RECORDS SUMMARY | 2025-01-28 16:04 | XMS_ITS | Encounter Summary ---
Author Organization [facility] Address [address] [place] [address] Care Team Providers Care Cable Tool Operator Name Role Phone Unavailable Primary Care Provider Unavailabl e Encounter Details Date Type Department Care Team (Late st Contact Info) Description 04/09/1998 Outpatient Historical [facility] Pediatrics [place] [place] [address] Moises Guerrero Social History Tobacco Use Types Packs/Day Years Used Date Smoking Tobacco: Never Assessed Comments Unknown Sex and Gender Information Value Date Recorded Sex Assigned at Not on file Legal Sex Female 2:44 AM LINUX SYSTEM ADMINISTRATOR Gender Identity Not on file Sexual Orientation Not on file documented as of this encounter Plan of Treatment Not on file documented as of this encounter Visit Diagnoses Not on filedocumented in this encounter
--- OUTSIDE RECORDS SUMMARY | 2025-01-28 16:04 | XMS_ITS | Encounter Summary ---
Author Organization [facility] Address [address] [place] [address] Care Team Providers Care Tractor Mechanic Apprentice Name Role Phone Unavailable Primary Care Provider Unavailabl e Encounter Details Date Type Department Care Team (Late st Contact Info) Description 05/28/1998 Outpatient Historical [facility] Pediatrics [place] [place] [address] Moises Guerrero Social History Tobacco Use Types Packs/Day Years Used Date Smoking Tobacco: Never Assessed Comments Unknown Sex and Gender Information Value Date Recorded Sex Assigned at Not on file Legal Sex Female 2:44 AM SUPERVISOR CELL EFFICIENCY Gender Identity Not on file Sexual Orientation Not on file documented as of this encounter Plan of Treatment Not on file documented as of this encounter Visit Diagnoses Not on filedocumented in this encounter
--- OUTSIDE RECORDS SUMMARY | 2025-01-28 16:04 | XMS_ITS | Encounter Summary ---
Author Organization [facility] Address [address] [place] [address] Care Team Providers Care Stock Patcher Name Role Phone Unavailable Primary Care Provider Unavailabl e Encounter Details Date Type Department Care Team (Late st Contact Info) Description 07/09/2004 Outpatient Historical [facility] Pediatrics [address] [place] [address] Murtaza Mcnulty MD [address] [place] [address] Social History Tobacco Use Types Packs/Day Years Used Date Smoking Tobacco: Never Assessed Comments Unknown Sex and Gender Information Value Date Recorded Sex Assigned at Not on file Legal Sex Female 2:44 AM INVESTIGATION OFFICER Gender Identity Not on file Sexual Orientation Not on file documented as of this encounter Plan of Treatment Not on file documented as of this encounter Visit Diagnoses Not on filedocumented in this encounter
--- OUTSIDE RECORDS SUMMARY | 2025-01-28 16:04 | XMS_ITS | Encounter Summary ---
Author Organization [facility] Address [address] [place] [address] Care Team Providers Care Central Station Operator Name Role Phone Unavailable Primary Care Provider Unavailabl e Encounter Details Date Type Department Care Team (Late st Contact Info) Description 07/25/1999 Outpatient Historical [facility] Pediatrics [place] [address] [place] [address] Moises Guerrero Social History Tobacco Use Types Packs/Day Years Used Date Smoking Tobacco: Never Assessed Comments Unknown Sex and Gender Information Value Date Recorded Sex Assigned at Not on file Legal Sex Female 2:44 AM ICT MANAGERS Gender Identity Not on file Sexual Orientation Not on file documented as of this encounter Plan of Treatment Not on file documented as of this encounter Visit Diagnoses Not on filedocumented in this encounter
--- OUTSIDE RECORDS SUMMARY | 2025-01-28 16:04 | XMS_ITS | Encounter Summary ---
Author Organization [facility] Address [address] [place] [address] Care Team Providers Care Field Crop Ii Farmworker Name Role Phone Unavailable Primary Care Provider Unavailabl e Encounter Details Date Type Department Care Team (Late st Contact Info) Description 01/05/2000 Outpatient Historical [facility] Pediatrics [place] [address] [facility] [address] [place] [address] Kashmir Gunn MD [address] [facility] [address] [place] [address] Social History Tobacco Use Types Packs/Day Years Used Date Smoking Tobacco: Never Assessed Comments Unknown Sex and Gender Information Value Date Recorded Sex Assigned at Not on file Legal Sex Female 2:44 AM ROSS FURNACE 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
--- OUTSIDE RECORDS SUMMARY | 2025-01-28 16:04 | XMS_ITS | Encounter Summary ---
Author Organization [facility] Address [address] [place] [address] Care Team Providers Care Electrical Control Assembler Name Role Phone Unavailable Primary Care Provider Unavailabl e Encounter Details Date Type Department Care Team (Late st Contact Info) Description 06/06/2001 Outpatient Historical [facility] Pediatrics [place] [address] [facility] [address] [place] [address] Kashmir Gunn MD [address] [facility] [address] [place] [address] Social History Tobacco Use Types Packs/Day Years Used Date Smoking Tobacco: Never Assessed Comments Unknown Sex and Gender Information Value Date Recorded Sex Assigned at Not on file Legal Sex Female 2:44 AM DATA ABSTRACTOR Gender Identity Not on file Sexual Orientation Not on file documented as of this encounter Plan of Treatment Not on file documented as of this encounter Visit Diagnoses Not on filedocumented in this encounter
--- OUTSIDE RECORDS SUMMARY | 2025-01-28 16:04 | XMS_ITS | Encounter Summary ---
Author Organization [facility] Address [address] [place] [address] Care Team Providers Care Chair Mender Name Role Phone Unavailable Primary Care Provider Unavailabl e Encounter Details Date Type Department Care Team (Late st Contact Info) Description 08/23/1998 Outpatient Historical [facility] Pediatrics [place] [address] [place] [address] Moises Guerrero Social History Tobacco Use Types Packs/Day Years Used Date Smoking Tobacco: Never Assessed Comments Unknown Sex and Gender Information Value Date Recorded Sex Assigned at Not on file Legal Sex Female 2:44 AM SUPERVISOR LOOPING Gender Identity Not on file Sexual Orientation Not on file documented as of this encounter Plan of Treatment Not on file documented as of this encounter Visit Diagnoses Not on filedocumented in this encounter
--- OUTSIDE RECORDS SUMMARY | 2025-01-28 16:04 | XMS_ITS | Encounter Summary ---
Author Organization [facility] Address [address] [place] [address] Care Team Providers Care Lot Technician Name Role Phone Unavailable Primary Care Provider Unavailabl e Encounter Details Date Type Department Care Team (Late st Contact Info) Description 12/03/1998 Outpatient Historical [facility] Pediatrics [place] [place] [address] Moises Guerrero Social History Tobacco Use Types Packs/Day Years Used Date Smoking Tobacco: Never Assessed Comments Unknown Sex and Gender Information Value Date Recorded Sex Assigned at Not on file Legal Sex Female 2:44 AM HEMATOLOGIST Gender Identity Not on file Sexual Orientation Not on file documented as of this encounter Plan of Treatment Not on file documented as of this encounter Visit Diagnoses Not on filedocumented in this encounter
--- OUTSIDE RECORDS SUMMARY | 2025-01-28 16:04 | XMS_ITS | Encounter Summary ---
Author Organization [facility] Address [address] [place] [address] Care Team Providers Care Tuckpointer Cleaner Caulker Name Role Phone Unavailable Primary Care Provider Unavailabl e Encounter Details Date Type Department Care Team (Late st Contact Info) Description 06/01/2000 Outpatient Historical [facility] Pediatrics [place] [address] [facility] [address] [place] [address] Kashmir Gunn MD [address] [facility] [address] [place] [address] Social History Tobacco Use Types Packs/Day Years Used Date Smoking Tobacco: Never Assessed Comments Unknown Sex and Gender Information Value Date Recorded Sex Assigned at Not on file Legal Sex Female 2:44 AM STEAM GIGGER Gender Identity Not on file Sexual Orientation Not on file documented as of this encounter Plan of Treatment Not on file documented as of this encounter Visit Diagnoses Not on filedocumented in this encounter
--- OUTSIDE RECORDS SUMMARY | 2025-01-28 16:04 | XMS_ITS | Encounter Summary ---
Author Organization [facility] Address [address] [place] [address] Care Team Providers Care Wood Tile Installer Name Role Phone Unavailable Primary Care Provider Unavailabl e Encounter Details Date Type Department Care Team (Late st Contact Info) Description 05/31/1998 Outpatient Historical [facility] Pediatrics [address] [place] [address] Moises Guerrero Social History Tobacco Use Types Packs/Day Years Used Date Smoking Tobacco: Never Assessed Comments Unknown Sex and Gender Information Value Date Recorded Sex Assigned at Not on file Legal Sex Female 2:44 AM MUSHROOM CULTIVATOR Gender Identity Not on file Sexual Orientation Not on file documented as of this encounter Plan of Treatment Not on file documented as of this encounter Procedures Procedure Name Priority Date/Time Associated Diagnosis Comments CHG HEPATITIS B VACCINE PED ADOL IM 3 DOSE VFC 05/31/1998 12:00 AM MUSHROOM CULTIVATOR CHG DTAP VACCINE <7 YO IM VFC 05/31/1998 12:00 AM MUSHROOM CULTIVATOR documented in this encounter Visit Diagnoses Not on filedocumented in this encounter
--- OUTSIDE RECORDS SUMMARY | 2025-01-28 16:04 | XMS_ITS | Encounter Summary ---
Author Organization [facility] Address [address] [place] [address] Care Team Providers Care Able Seaman Name Role Phone Unavailable Primary Care Provider Unavailabl e Encounter Details Date Type Department Care Team (Late st Contact Info) Description 08/15/1999 Outpatient Historical [facility] Pediatrics [place] [address] [place] [address] Moises Guerrero Social History Tobacco Use Types Packs/Day Years Used Date Smoking Tobacco: Never Assessed Comments Unknown Sex and Gender Information Value Date Recorded Sex Assigned at Not on file Legal Sex Female 2:44 AM HAND BINDER CUTTER Gender Identity Not on file Sexual Orientation Not on file documented as of this encounter Plan of Treatment Not on file documented as of this encounter Visit Diagnoses Not on filedocumented in this encounter
--- OUTSIDE RECORDS SUMMARY | 2025-01-28 16:04 | XMS_ITS | Encounter Summary ---
Author Organization [facility] Address [address] [place] [address] Care Team Providers Care Hall Cleaner Name Role Phone Unavailable Primary Care Provider Unavailabl e Encounter Details Date Type Department Care Team (Late st Contact Info) Description 01/14/1998 Outpatient Historical [facility] Pediatrics [place] [place] [address] Moises Guerrero Social History Tobacco Use Types Packs/Day Years Used Date Smoking Tobacco: Never Assessed Comments Unknown Sex and Gender Information Value Date Recorded Sex Assigned at Not on file Legal Sex Female 2:44 AM REGISTERED TRAVEL NURSE Gender Identity Not on file Sexual Orientation Not on file documented as of this encounter Plan of Treatment Not on file documented as of this encounter Visit Diagnoses Not on filedocumented in this encounter
--- OUTSIDE RECORDS SUMMARY | 2025-01-28 16:04 | XMS_ITS | Encounter Summary ---
Author Organization [facility] Address [address] [place] [address] Care Team Providers Care Operating Engineer Name Role Phone Unavailable Primary Care Provider Unavailabl e Encounter Details Date Type Department Care Team (Late st Contact Info) Description 07/10/1998 Outpatient Historical [facility] Pediatrics [place] [address] [place] [address] Moises Guerrero Social History Tobacco Use Types Packs/Day Years Used Date Smoking Tobacco: Never Assessed Comments Unknown Sex and Gender Information Value Date Recorded Sex Assigned at Not on file Legal Sex Female 2:44 AM OTR [employer] TRUCK DRIVER Gender Identity Not on file Sexual Orientation Not on file documented as of this encounter Plan of Treatment Not on file documented as of this encounter Visit Diagnoses Not on filedocumented in this encounter
--- OUTSIDE RECORDS SUMMARY | 2025-01-28 16:04 | XMS_ITS | Encounter Summary ---
Author Organization [facility] Address [address] [place] [address] Care Team Providers Care Pallet Stone Inserter Name Role Phone Unavailable Primary Care Provider Unavailabl e Encounter Details Date Type Department Care Team (Late st Contact Info) Description 02/06/2004 Outpatient Historical [facility] Pediatrics [address] [place] [address] Murtaza Mcnulty MD [address] [place] [address] Social History Tobacco Use Types Packs/Day Years Used Date Smoking Tobacco: Never Assessed Comments Unknown Sex and Gender Information Value Date Recorded Sex Assigned at Not on file Legal Sex Female 2:44 AM CONFLICTS ANALYST Gender Identity Not on file Sexual Orientation Not on file documented as of this encounter Plan of Treatment Not on file documented as of this encounter Visit Diagnoses Not on filedocumented in this encounter
--- OUTSIDE RECORDS SUMMARY | 2025-01-28 16:04 | XMS_ITS | Encounter Summary ---
Author Organization [facility] Address [address] [place] [address] Care Team Providers Care Patient Support Assistant Name Role Phone Unavailable Primary Care Provider Unavailabl e Encounter Details Date Type Department Care Team (Late st Contact Info) Description 10/25/1998 Outpatient Historical [facility] Pediatrics [place] [address] [place] [address] Moises Guerrero Social History Tobacco Use Types Packs/Day Years Used Date Smoking Tobacco: Never Assessed Comments Unknown Sex and Gender Information Value Date Recorded Sex Assigned at Not on file Legal Sex Female 2:44 AM SET UP MECHANIC HEADING MACHINES Gender Identity Not on file Sexual Orientation Not on file documented as of this encounter Plan of Treatment Not on file documented as of this encounter Visit Diagnoses Not on filedocumented in this encounter
--- OUTSIDE RECORDS SUMMARY | 2025-01-28 16:04 | XMS_ITS | Encounter Summary ---
Author Organization [facility] Address [address] [place] [address] Care Team Providers Care Librarian Name Role Phone Unavailable Primary Care Provider Unavailabl e Encounter Details Date Type Department Care Team (Late st Contact Info) Description 05/29/1999 Outpatient Historical [facility] Pediatrics [place] [address] [place] [address] Moises Guerrero Social History Tobacco Use Types Packs/Day Years Used Date Smoking Tobacco: Never Assessed Comments Unknown Sex and Gender Information Value Date Recorded Sex Assigned at Not on file Legal Sex Female 2:44 AM BATTERY CONTAINER TESTER Gender Identity Not on file Sexual Orientation Not on file documented as of this encounter Plan of Treatment Not on file documented as of this encounter Visit Diagnoses Not on filedocumented in this encounter
--- OUTSIDE RECORDS SUMMARY | 2025-01-28 16:04 | XMS_ITS | Encounter Summary ---
Author Organization [facility] Address [address] [place] [address] Care Team Providers Care Power Plant Operator Apprentice Name Role Phone Unavailable Primary Care Provider Unavailabl e Encounter Details Date Type Department Care Team (Late st Contact Info) Description 02/13/[address] [facility] Pediatrics [address] [place] [address] Murtaza Mcnulty MD [address] [place] [address] Social History Tobacco Use Types Packs/Day Years Used Date Smoking Tobacco: Never Assessed Comments Unknown Sex and Gender Information Value Date Recorded Sex Assigned at Not on file Legal Sex Female 2:44 AM INSURANCE COMMISSIONER Gender Identity Not on file Sexual Orientation Not on file documented as of this encounter Plan of Treatment Not on file documented as of this encounter Visit Diagnoses Not on filedocumented in this encounter
--- OUTSIDE RECORDS SUMMARY | 2025-01-28 16:04 | XMS_ITS | Encounter Summary ---
Author Organization [facility] Address [address] [place] [address] Care Team Providers Care Print Cutter Name Role Phone Unavailable Primary Care Provider Unavailabl e Encounter Details Date Type Department Care Team (Late st Contact Info) Description 02/12/2004 Outpatient Historical [facility] Pediatrics [address] [place] [address] Murtaza Mcnulty MD [address] [place] [address] Social History Tobacco Use Types Packs/Day Years Used Date Smoking Tobacco: Never Assessed Comments Unknown Sex and Gender Information Value Date Recorded Sex Assigned at Not on file Legal Sex Female 2:44 AM SCRAP HOOKER Gender Identity Not on file Sexual Orientation Not on file documented as of this encounter Plan of Treatment Not on file documented as of this encounter Visit Diagnoses Not on filedocumented in this encounter
--- OUTSIDE RECORDS SUMMARY | 2025-01-28 16:04 | XMS_ITS | Encounter Summary ---
Author Organization [facility] Address [address] [place] [address] Care Team Providers Care Mechanical Service Technician Name Role Phone Unavailable Primary Care Provider Unavailabl e Encounter Details Date Type Department Care Team (Late st Contact Info) Description 05/31/1998 Outpatient Historical [facility] Pediatrics [address] [place] [address] Moises Guerrero Social History Tobacco [...] VACCINE LIVE ORAL VFC 05/31/1998 12:00 AM BOX BLANK MACHINE OPERATOR HELPER documented in this encounter Visit Diagnoses Not on filedocumented in this encounter
--- OUTSIDE RECORDS SUMMARY | 2025-01-28 16:04 | XMS_ITS | Encounter Summary ---
Author Organization [facility] Address [address] [place] [address] Care Team Providers Care Sales Facilitator Name Role Phone Unavailable Primary Care Provider Unavailabl e Encounter Details Date Type Department Care Team (Late st Contact Info) Description 09/21/2000 Outpatient Historical [facility] Pediatrics [place] [address] [facility] [address] [place] [address] Edgar Morton MD [address] [facility] [address] [place] [address] Social History Tobacco Use Types Packs/Day Years Used Date Smoking Tobacco: Never Assessed Comments Unknown Sex and Gender Information Value Date Recorded Sex Assigned at Not on file Legal Sex Female 2:44 AM DOCUMENTATION CONSULTANT Gender Identity Not on file Sexual Orientation Not on file documented as of this encounter Plan of Treatment Not on file documented as of this encounter Visit Diagnoses Not on filedocumented in this encounter
--- OUTSIDE RECORDS SUMMARY | 2025-01-28 16:04 | XMS_ITS | Encounter Summary ---
Author Organization [facility] Address [address] [place] [address] Care Team Providers Care Endband Sizer Name Role Phone Unavailable Primary Care Provider Unavailabl e Encounter Details Date Type Department Care Team (Late st Contact Info) Description 11/28/1998 Outpatient Historical [facility] Pediatrics [place] [address] [place] [address] Moises Guerrero Social History Tobacco Use Types Packs/Day Years Used Date Smoking Tobacco: Never Assessed Comments Unknown Sex and Gender Information Value Date Recorded Sex Assigned at Not on file Legal Sex Female 2:44 AM FRONT ATTENDANT Gender Identity Not on file Sexual Orientation Not on file documented as of this encounter Plan of Treatment Not on file documented as of this encounter Visit Diagnoses Not on filedocumented in this encounter
--- OUTSIDE RECORDS SUMMARY | 2025-01-28 16:04 | XMS_ITS | Encounter Summary ---
Author Organization [facility] Address [address] [place] [address] Care Team Providers Care Prekindergarten Teacher Name Role Phone Unavailable Primary Care Provider Unavailabl e Encounter Details Date Type Department Care Team (Late st Contact Info) Description 04/29/1999 Outpatient Historical [facility] Pediatrics [place] [address] [place] [address] Moises Guerrero Social History Tobacco Use Types Packs/Day Years Used Date Smoking Tobacco: Never Assessed Comments Unknown Sex and Gender Information Value Date Recorded Sex Assigned at Not on file Legal Sex Female 2:44 AM MARKETING AND DEVELOPMENT COORDINATOR Gender Identity Not on file Sexual Orientation Not on file documented as of this encounter Plan of Treatment Not on file documented as of this encounter Visit Diagnoses Not on filedocumented in this encounter
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
--- OUTSIDE RECORDS SUMMARY | 2025-01-28 16:04 | XMS_ITS | Encounter Summary ---
Author Organization [facility] Address [address] [place] [address] Care Team Providers Care Information Systems Audit Manager Name Role Phone Unavailable Primary Care Provider Unavailabl e Encounter Details Date Type Department Care Team (Late st Contact Info) Description 11/04/2004 Outpatient Historical [facility] Pediatrics [address] [place] [address] Murtaza Mcnulty MD [address] [place] [address] Social History Tobacco Use Types Packs/Day Years Used Date Smoking Tobacco: Never Assessed Comments Unknown Sex and Gender Information Value Date Recorded Sex Assigned at Not on file Legal Sex Female 2:44 AM STATISTICIAN Gender Identity Not on file Sexual Orientation Not on file documented as of this encounter Plan of Treatment Not on file documented as of this encounter Visit Diagnoses Not on filedocumented in this encounter
--- OUTSIDE RECORDS SUMMARY | 2025-01-28 16:04 | XMS_ITS | Encounter Summary ---
Author Organization [facility] Address [address] [place] [address] Care Team Providers Care Building Guard Deputy Sheriff Name Role Phone Unavailable Primary Care Provider Unavailabl e Encounter Details Date Type Department Care Team (Late st Contact Info) Description 09/06/1998 Outpatient Historical [facility] Pediatrics [place] [address] [place] [address] Moises Guerrero Social History Tobacco Use Types Packs/Day Years Used Date Smoking Tobacco: Never Assessed Comments Unknown Sex and Gender Information Value Date Recorded Sex Assigned at Not on file Legal Sex Female 2:44 AM REVIEW NURSE Gender Identity Not on file Sexual Orientation Not on file documented as of this encounter Plan of Treatment Not on file documented as of this encounter Visit Diagnoses Not on filedocumented in this encounter
--- OUTSIDE RECORDS SUMMARY | 2025-01-28 16:04 | XMS_ITS | Encounter Summary ---
Author Organization [facility] Address [address] [place] [address] Care Team Providers Care Supplier Engineer Name Role Phone Unavailable Primary Care Provider Unavailabl e Encounter Details Date Type Department Care Team (Late st Contact Info) Description 08/23/1998 Outpatient Historical [facility] Pediatrics [place] [address] [place] [address] Moises Guerrero Social History Tobacco Use Types Packs/Day Years Used Date Smoking Tobacco: Never Assessed Comments Unknown Sex and Gender Information Value Date Recorded Sex Assigned at Not on file Legal Sex Female 2:44 AM WOOD VENEER TAPER Gender Identity Not on file Sexual Orientation Not on file documented as of this encounter Plan of Treatment Not on file documented as of this encounter Visit Diagnoses Not on filedocumented in this encounter
--- OUTSIDE RECORDS SUMMARY | 2025-01-28 16:04 | XMS_ITS | Encounter Summary ---
Author Organization [facility] Address [address] [place] [address] Care Team Providers Care Application Security Architect Name Role Phone Unavailable Primary Care Provider Unavailabl e Encounter Details Date Type Department Care Team (Late st Contact Info) Description 06/04/2003 Outpatient Historical [facility] Pediatrics [address] [place] [address] Murtaza Mcnulty MD [address] [place] [address] Social History Tobacco Use Types Packs/Day Years Used Date Smoking Tobacco: Never Assessed Comments Unknown Sex and Gender Information Value Date Recorded Sex Assigned at Not on file Legal Sex Female 2:44 AM RAG COLLECTOR Gender Identity Not on file Sexual Orientation Not on file documented as of this encounter Plan of Treatment Not on file documented as of this encounter Visit Diagnoses Not on filedocumented in this encounter
--- OUTSIDE RECORDS SUMMARY | 2025-01-28 16:04 | XMS_ITS | Encounter Summary ---
Author Organization [facility] Address [address] [place] [address] Care Team Providers Care Purchaser Automotive Parts Name Role Phone Unavailable Primary Care Provider Unavailabl e Encounter Details Date Type Department Care Team (Late st Contact Info) Description 03/26/2000 Outpatient Historical [facility] Pediatrics [place] [address] [facility] [address] [place] [address] Kashmir Gunn MD [address] [facility] [address] [place] [address] Social History Tobacco Use Types Packs/Day Years Used Date Smoking Tobacco: Never Assessed Comments Unknown Sex and Gender Information Value Date Recorded Sex Assigned at Not on file Legal Sex Female 2:44 AM TENTER FRAME BACK TENDER Gender Identity Not on file Sexual Orientation Not on file documented as of this encounter Plan of Treatment Not on file documented as of this encounter Visit Diagnoses Not on filedocumented in this encounter
--- OUTSIDE RECORDS SUMMARY | 2025-01-28 16:04 | XMS_ITS | Encounter Summary ---
Author Organization [facility] Address [address] [place] [address] Care Team Providers Care Biscuit Packer Name Role Phone Unavailable Primary Care Provider Unavailabl e Encounter Details Date Type Department Care Team (Late st Contact Info) Description 05/06/2004 Outpatient Historical [facility] Pediatrics [address] [place] [address] Murtaza Mcnulty MD [address] [place] [address] Social History Tobacco Use Types Packs/Day Years Used Date Smoking Tobacco: Never Assessed Comments Unknown Sex and Gender Information Value Date Recorded Sex Assigned at Not on file Legal Sex Female 2:44 AM DIETITIAN Gender Identity Not on file Sexual Orientation Not on file documented as of this encounter Plan of Treatment Not on file documented as of this encounter Visit Diagnoses Not on filedocumented in this encounter
--- OUTSIDE RECORDS SUMMARY | 2025-01-28 16:04 | XMS_ITS | Encounter Summary ---
Author Organization [facility] Address [address] [place] [address] Care Team Providers Care Rebar Worker Name Role Phone Unavailable Primary Care Provider Unavailabl e Encounter Details Date Type Department Care Team (Late st Contact Info) Description 08/25/2001 Outpatient Historical [facility] Pediatrics [place] [address] [facility] [address] [place] [address] Kashmir Gunn MD [address] [place] [address] Social History Tobacco Use Types Packs/Day Years Used Date Smoking Tobacco: Never Assessed Comments Unknown Sex and Gender Information Value Date Recorded Sex Assigned at Not on file Legal Sex Female 2:44 AM BREAKER TENDER Gender Identity Not on file Sexual Orientation Not on file documented as of this encounter Plan of Treatment Not on file documented as of this encounter Visit Diagnoses Not on filedocumented in this encounter
--- OUTSIDE RECORDS SUMMARY | 2025-01-28 16:04 | XMS_ITS | Encounter Summary ---
Author Organization [facility] Address [address] [place] [address] Care Team Providers Care Senior Program Manager Name Role Phone Unavailable Primary Care Provider Unavailabl e Encounter Details Date Type Department Care Team (Late st Contact Info) Description 04/03/[address] [facility] Pediatrics [place] [address] [place] [address] Luis Conklin MD [address] [place] [address] Social History Tobacco Use Types Packs/Day Years Used Date Smoking Tobacco: Never Assessed Comments Unknown Sex and Gender Information Value Date Recorded Sex Assigned at Not on file Legal Sex Female 2:44 AM TELESALES SPECIALIST Gender Identity Not on file Sexual Orientation Not on file documented as of this encounter Plan of Treatment Not on file documented as of this encounter Visit Diagnoses Not on filedocumented in this encounter
--- OUTSIDE RECORDS SUMMARY | 2025-01-28 16:04 | XMS_ITS | Encounter Summary ---
Author Organization [facility] Address [address] [place] [address] Care Team Providers Care Mobile Application Tester Name Role Phone Unavailable Primary Care Provider Unavailabl e Encounter Details Date Type Department Care Team (Late st Contact Info) Description 01/06/1999 Outpatient Historical [facility] Pediatrics [place] [address] [place] [address] Moises Guerrero Social History Tobacco Use Types Packs/Day Years Used Date Smoking Tobacco: Never Assessed Comments Unknown Sex and Gender Information Value Date Recorded Sex Assigned at Not on file Legal Sex Female 2:44 AM IRRIGATION SERVICE TECHNICIAN Gender Identity Not on file Sexual Orientation Not on file documented as of this encounter Plan of Treatment Not on file documented as of this encounter Visit Diagnoses Not on filedocumented in this encounter
--- OUTSIDE RECORDS SUMMARY | 2025-01-28 16:04 | XMS_ITS | Clinical Summary ---
Author Organization [facility] Address [address] [place] [address] Phone Care Team Providers Care Wafer Polisher Name Role Phone Unavailable Primary Care Provider Unavailabl e Allergies Active Allergy Reactions Criticality Noted Date Comments Sulfa (Sulfonamide Antibiotics) Rash High 11/30 Medications Norethindrn A-E estradiol-Iron (MICROGESTIN FE ./,) 1.5 mg-30 mcg (21)/75 mg (7) tablet [...] on file Legal Sex Female 2:44 AM MUSIC HISTORIAN Gender Identity Not on file Sexual Orientation Not on file Occupation Industry Job Start Date Job End Date Not on file Not on file Not on file Not on file Last Filed Vital Signs Vital Sign Reading Time Taken Comments Blood Pressure 110/80 01/28/2016 11:54 AM MUSIC HISTORIAN Pulse 101 01/28/2016 11:54 AM MUSIC HISTORIAN Temperature 37.1 C (98.7 F) 01/28/2016 11:54 AM MUSIC HISTORIAN Respiratory Rate 18 01/28/2016 11:54 AM MUSIC HISTORIAN Oxygen Saturation 97% 01/28/2016 11:54 AM MUSIC HISTORIAN Inhaled Oxygen Concentration - - Weight 61.7 kg (136 lb) 01/28/2016 11:54 AM MUSIC HISTORIAN Height 160 cm (5' 3) 01/28/2016 11:54 AM MUSIC HISTORIAN Body Mass Index 24.09 01/28/2016 11:54 AM MUSIC HISTORIAN Plan of Treatment Health Maintenance Due Date Last Done Comments DTAP/TDAP/TD VACCINES (1 - Tdap) 2016 HEPATITIS B VACCINES (1 of 3 - 19+ 3-dose series) 10/31 CERVICAL CANCER SCREENING 2018 HPV/Cotest (21-29) 2018 PAP SMEAR 2018 INFLUENZA VACCINE (#1) 2024 HPV VACCINES (1 - 3-dose SCDM series) 2024
--- OUTSIDE RECORDS SUMMARY | 2025-01-28 16:04 | XMS_ITS | Encounter Summary ---
Author Organization [facility] Address [address] [place] [address] Care Team Providers Care Rand Tacker Name Role Phone Unavailable Primary Care Provider Unavailabl e Encounter Details Date Type Department Care Team (Late st Contact Info) Description 12/17/1998 Outpatient Historical [facility] Pediatrics [place] [address] [place] [address] Moises Guerrero Social History Tobacco Use Types Packs/Day Years Used Date Smoking Tobacco: Never Assessed Comments Unknown Sex and Gender Information Value Date Recorded Sex Assigned at Not on file Legal Sex Female 2:44 AM HOME IMPROVEMENT INSTALLER Gender Identity Not on file Sexual Orientation Not on file documented as of this encounter Plan of Treatment Not on file documented as of this encounter Visit Diagnoses Not on filedocumented in this encounter
--- OUTSIDE RECORDS SUMMARY | 2025-01-28 16:04 | XMS_ITS | Encounter Summary ---
Author Organization [facility] Address [address] [place] [address] Care Team Providers Care Boiling House Oiler Name Role Phone Unavailable Primary Care Provider Unavailabl e Encounter Details Date Type Department Care Team (Late st Contact Info) Description 01/07/1998 Outpatient Historical [facility] Pediatrics [place] [address] [place] [address] Moises Guerrero Social History Tobacco Use Types Packs/Day Years Used Date Smoking Tobacco: Never Assessed Comments Unknown Sex and Gender Information Value Date Recorded Sex Assigned at Not on file Legal Sex Female 2:44 AM BORING MACHINE SET UP 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
--- OUTSIDE RECORDS SUMMARY | 2025-01-28 16:04 | XMS_ITS | Encounter Summary ---
Author Organization [facility] Address [address] [place] [address] Care Team Providers Care Kitchen Helper Name Role Phone Unavailable Primary Care Provider Unavailabl e Encounter Details Date Type Department Care Team (Late st Contact Info) Description 02/05/2000 Outpatient Historical [facility] Pediatrics [place] [address] [place] [address] Kashmir Gunn MD [address] [place] [address] Social History Tobacco Use Types Packs/Day Years Used Date Smoking Tobacco: Never Assessed Comments Unknown Sex and Gender Information Value Date Recorded Sex Assigned at Not on file Legal Sex Female 2:44 AM EMBROIDERY PATTERN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
--- OUTSIDE RECORDS SUMMARY | 2025-01-28 16:04 | XMS_ITS | Encounter Summary ---
Author Organization [facility] Address [address] [place] [address] Care Team Providers Care Professional Soccer Player Name Role Phone Unavailable Primary Care Provider Unavailabl e Encounter Details Date Type Department Care Team (Late st Contact Info) Description 08/11/1999 Outpatient Historical [facility] Pediatrics [place] [address] [place] [address] Moises Guerrero Social History Tobacco Use Types Packs/Day Years Used Date Smoking Tobacco: Never Assessed Comments Unknown Sex and Gender Information Value Date Recorded Sex Assigned at Not on file Legal Sex Female 2:44 AM CHIEF ENGINEERING DIVISION Gender Identity Not on file Sexual Orientation Not on file documented as of this encounter Plan of Treatment Not on file documented as of this encounter Visit Diagnoses Not on filedocumented in this encounter
--- OUTSIDE RECORDS SUMMARY | 2025-01-28 16:04 | XMS_ITS | Encounter Summary ---
Author Organization [facility] Address [address] [place] [address] Care Team Providers Care Metal Numerical Tool Programmer Name Role Phone Unavailable Primary Care Provider Unavailabl e Encounter Details Date Type Department Care Team (Late st Contact Info) Description 03/05/2001 Outpatient Historical [facility] Pediatrics [place] [address] [place] [address] Luis Conklin MD [address] [place] [address] Social History Tobacco Use Types Packs/Day Years Used Date Smoking Tobacco: Never Assessed Comments Unknown Sex and Gender Information Value Date Recorded Sex Assigned at Not on file Legal Sex Female 2:44 AM MANAGER PAPER Gender Identity Not on file Sexual Orientation Not on file documented as of this encounter Plan of Treatment Not on file documented as of this encounter Visit Diagnoses Not on filedocumented in this encounter
--- OUTSIDE RECORDS SUMMARY | 2025-01-28 16:04 | XMS_ITS | Encounter Summary ---
Author Organization [facility] Address [address] [place] [address] Care Team Providers Care Telescope Operator Name Role Phone Unavailable Primary Care Provider Unavailabl e Encounter Details Date Type Department Care Team (Late st Contact Info) Description 11/15/2003 Outpatient Historical [facility] Pediatrics [place] [address] [place] [address] Kashmir Gunn MD [address] [place] [address] Social History Tobacco Use Types Packs/Day Years Used Date Smoking Tobacco: Never Assessed Comments Unknown Sex and Gender Information Value Date Recorded Sex Assigned at Not on file Legal Sex Female 2:44 AM CRM COORDINATOR Gender Identity Not on file Sexual Orientation Not on file documented as of this encounter Plan of Treatment Not on file documented as of this encounter Procedures Procedure Name Priority Date/Time Associated Diagnosis Comments CHG POLIOVIRUS IPV [facility] 12:00 AM CDT CHG MMR VACCINE SQ [facility] 12:00 AM CDT CHG DTAP VACCINE <7 YO IM VFC 11/15/2003 12:00 AM CDT documented in this encounter Visit Diagnoses Not on filedocumented in this encounter
--- NOTE | 2025-01-28 16:32 | LDADM ---
This patient, Charis Peres, was admitted to Labor/Delivery/Recovery 108 on 01/28/25 at 16:00. Plans for labor, pain management and were discussed with patient. Patient/family oriented to hospital policies and general routines including ID bracelet, bed and alarms, visiting hours, pain management, procedures, bathroom and other care routines, personal items, smoking policy, room service/diet and guest tray routines, security routines, and visiting hours. Patient/Family are encouraged to report perceived risks to care and to ask questions if they do not understand what they are told or what they should do. See OBIX for further documentation.
[2025-01-28 16:49] LABS: Hematocrit 34.6 % (37.0-47.0); Hemoglobin 11.6 g/dL (12.0-15.0); Immature Granulocyte Percent A 2.1 % (0-0.5); Lymphocytes Absolute Auto 1.56 K/mm3 (0.9-3.2); Mean Corpuscular HGB Conc 33.5 g/dl (32-36); Mean Corpuscular Hemoglobin 28.9 pg (26-34); Mean Corpuscular Volume 86.3 fl (80-100); Nucleated Red Blood Cells Absolute Auto 0.000 K/mm3 (0.0-0.012); Nucleated Red Blood Cells Perc 0.0 % (0.0-0.2); Platelet Count Result 235 k/mm3 (150-375); Red Blood Count 4.01 M/mm3 (4.2-5.4); White Blood Count 17.4 K/mm3 (4.5-10.0)
[2025-01-28] MEDS: DINOPROSTONE 10 MG VAG INSERT VAGINAL (17:05)
[2025-01-28 17:29] LABS: Syphilis IgG/IgM Antibody Non-Reactive (Nonreactive)
[2025-01-29] VITALS (236 sets, daily range): BP systolic 88–163; BP diastolic 56–109; PULSE 74–143; TEMP 36.3–37.3; O2SAT 96–100
[2025-01-29] MEDS: ACETAMINOPHEN 500 MG TABLET 1000 MG PO ×4 (00:23→21:28)
--- NOTE | 2025-01-29 10:27 | WPDOBADMIT ---
Obstetrics - Admit Note Admission Note: record reviewed. Pertinent additions to the history and/or any subsequent changes in the physical findings that are not consistent with the expected course of the were found. Additions to the history and/or subsequent changes in the physical findings follow. Here for MIL for GDMA1. Cervadil last pm. Patient at 0530 insisting on a csection with nurse. After discussing, agreed to cytotec. After first cytotec now 1-2/50/-3 AROM with clear fluid. Agrees to continue MIL. FHTs category 1. .
[2025-01-29] MEDS: LACTATED RINGERS 1,000 ML 125 ML IV CONT ×3 (10:34→22:56)
--- NOTE | 2025-01-29 14:11 | WPDANESEPPF ---
Anes - Initial Pre Proc Eval Procedure: labor epidural Date/Time: 01/29/25 14:11 Surgeon: Myriam Pretty MD Pre Op Diagnosis: labor pain Pre Op Diagnosis: Induction of Labor Patient Data Age: 29 Gender: F Height: 1.63 m Weight: 93 kg Last Vital Signs Temp 36.6 C 01/29/25 10:30 Pulse 100 01/29/25 14:00 BP 134/84 01/29/25 14:00 Pulse Ox 100 01/29/25 14:06 O2 Del Method Room Air 01/29/25 06:28 Allergies Allergy/AdvReac Type Severity Reaction Status Date / Time Sulfa (Sulfonamide Allergy Unknown RASH Verified 01/28/25 17:05 Antibiotics) ITCHING Home Medications ?Medication ?Instructions ?Recorded ?Confirmed ?Type omeprazole 40 mg capsule,delayed 40 mg PO DAILY 01/06/25 01/28/25 History release vit no.95-ferrous 1 tablet PO DAILY 01/06/25 01/28/25 History fumarate 28 mg-folic acid 800 mcg tablet () aspirin 81 mg tablet 81 mg PO DAILY 01/28/25 01/28/25 History Laboratory Tests 01/28/25 01/28/25 01/28/25 16:43 16:47 20:26 WBC 17.4 H K/mm3 (4.5-10.0) RBC 4.01 L M/mm3 (4.2-5.4) Hgb 11.6 L g/dL (12.0-15.0) Hct 34.6 L % (37.0-47.0) MCV 86.3 fl (80-100) MCH 28.9 pg (26-34) MCHC 33.5 g/dl (32-36) RDW 13.8 % (11.5-14.5) Plt Count 235 k/mm3 (150-375) MPV 10.8 H fl (7.4-10.4) Immature Gran % (Auto) 2.1 H % (0-0.5) Neut % (Auto) 81.8 H % (45.5-73.1) Lymph % (Auto) 9.0 L % (18.3-44.2) [place] % (Auto) 5.8 % (2.6-8.5) Eos % (Auto) 0.8 % (0-4.4) Baso % (Auto) 0.5 % (0.2-1.2) Lymph # (Auto) 1.56 K/mm3 (0.9-3.2) [place] # (Auto) 1.0 H K/mm3 (0.1-0.6) Eos # (Auto) 0.1 K/mm3 (0-0.3) Baso # (Auto) 0.1 K/mm3 (0.0-0.1) Abs Immat Gran (auto) 0.36 H K/mm3 (0.00-0.031) Absolute Neuts (auto) 14.2 H K/mm3 (1.3-6.7) Absolute Nucleated RBC 0.000 K/mm3 (0.0-0.012) Nucleated RBC % 0.0 % (0.0-0.2) POC Capillary Glucose 122 H mg/dl 123 H mg/dl (65-105) (65-105) Syphilis IgG/IgM Ab Non-reactive (Nonreactive) Blood Type A Positive Antibody Screen Negative 01/29/25 01/29/25 01/29/25 00:06 03:48 08:25 WBC RBC Hgb Hct MCV MCH MCHC RDW Plt Count MPV Immature Gran % (Auto) Neut % (Auto) Lymph % (Auto) [place] % (Auto) Eos % (Auto) Baso % (Auto) Lymph # (Auto) [place] # (Auto) Eos # (Auto) Baso # (Auto) Abs Immat Gran (auto) Absolute Neuts (auto) Absolute Nucleated RBC Nucleated RBC % POC Capillary Glucose 104 mg/dl 107 H mg/dl 89 mg/dl (65-105) (65-105) (65-105) Syphilis IgG/IgM Ab Blood Type Antibody Screen 01/29/25 12:01 WBC RBC Hgb Hct MCV MCH MCHC RDW Plt Count MPV Immature Gran % (Auto) Neut % (Auto) Lymph % (Auto) [place] % (Auto) Eos % (Auto) Baso % (Auto) Lymph # (Auto) [place] # (Auto) Eos # (Auto) Baso # (Auto) Abs Immat Gran (auto) Absolute Neuts (auto) Absolute Nucleated RBC Nucleated RBC % POC Capillary Glucose 94 mg/dl (65-105) Syphilis IgG/IgM Ab Blood Type Antibody Screen Patient hx anesthesia problems: none Family hx anesthesia problems: none Results Review: All pre-operative results and documents have been reviewed as part of the pre-operative evaluation. [facility] Past Medical History Medical History (Updated 01/24/25 @ 07:47 by Myriam Pretty MD) IUP (intrauterine ), incidental Sleep apnea Anxiety disorder ADHD (attention deficit hyperactivity disorder) Spinal cord cysts surgically removed 2011 Surgical History Surgical History History of back surgery H/O sinus surgery History of tonsillectomy and adenoidectomy Family History Family History (Updated 01/06/25 @ 10:51 by Bertha Zaragoza RN) Mother Anxiety Depression Sibling Anxiety Depression Father Diabetes mellitus Social History Social History Years smoked: 2 Smoking status: Former smoker Tobacco type: e-cigarettes/vaping Second hand tobacco smoke exposure: No Smoking end date: 06/15/24 Alcohol intake: current Alcohol use details: social Substance use: never Lack of Transportation: No Lack of Food: Never True Current Housing: I Have Housing Concerned About Future Housing: No Difficulty Paying Gas/Electric Bills: No Difficulty Paying for Meds: No Currently Unemployed: No Education: High School Diploma/GED Difficulty w/ Childcare or Family Care: No Living arrangements: with family Gender identity (if verbalized by the patient): Female Spiritual care concerns: No Anes - Eval Final PreProcedure Day of Procedure 01/29/25 14:11 Patient weight: obese Heart: regular rate and rhythm Lungs: clear to auscultation Airway: Mallampati scale class II Neurological: alert and oriented Last oral intake: >/= 8 hours ASA classification: III Emergent: no Anesthetic plan: proceed Anesthesia type and monitoring: general GIVS and standard monitoring Results Review: All pre-operative results and documents have been reviewed as part of the pre-operative evaluation. Informed Consent: The patient's anesthetic plan and its attendant risks and benefits were discussed with the patient/family/POA. Questions were solicited and answers provided to the satisfaction of the patient/family/POA.
[2025-01-29] MEDS: OXYTOCIN 30 UNITS/NS 500 ML 30 UNITS/500 ML BAG 6 UNITS IV CONT (14:50)
[2025-01-29] MEDS: ONDANSETRON INJ 4 MG/2 ML VIAL IV PUSH ×2 (17:07→23:40)
[2025-01-30] VITALS (97 sets, daily range): BP systolic 57–151; BP diastolic 27–104; PULSE 64–206; RESP 12–18; TEMP 37–37.9; O2SAT 85–100
[2025-01-30] MEDS: SODIUM CHLORIDE 0.9% IV 300 ML 600 ML I-UTERINE (02:22)
[2025-01-30] MEDS: AZITHROMYCIN IV 500 MG in SODIUM CHLORIDE 0.9% IV 250 ML IVPB (03:30)
[2025-01-30] MEDS: FAMOTIDINE 20 MG/2 ML VIAL IV PUSH (03:30)
--- NOTE | 2025-01-30 03:32 | PM.IMHP2 ---
H&P: HPI History of Present Illness Date/Time: 01/30/25 03:32 Chief Complaint: intolerance of labor Narrative: The patient is a 29-year-old 1 para 0 at 40 weeks who was admitted yesterday for medical induction of labor. Patient had a prior attempt at medical induction of labor that failed. This admission the patient received Cervidil followed by Cytotec. Patient progressed to1.5cm and membranes were artificially ruptured. Patient had 1 additional dose of Cytotec followed by Pitocin. The patient is now 6cm/50%/-2 with the cervix still firm. For the past hour the patient heart rate tracing has had to decelerations lasting for approximately2-1/2 minutes. The patient does had a 7minute prolonged deceleration that has now recovered. In addition the past hours and 15minutes the patient has had decreased variability by external monitoring. Pitocin has been discontinued. Position change, fluid bolus, and amnio infusion have been tried. Discussion with the patient regarding heart rate tracing and options of continuing labor versus delivery under controlled setting versus potential emergency setting were reviewed. Patient elects to proceed with a primary for intolerance of labor. course has been complicated by gestational diabetes diet controlled. labs A-positive, rubella nonimmune, hepatitis-B surface antigen negative, RPR negative, HIV negative, and group B strep negative. Patient had a positive chlamydia at the beginning of the repeat was negative. Review of Systems Review of Systems: not repeated day of surgery; patient states no changes in status PMFSH Past Medical History Medical History (Updated 01/30/25 @ 03:39 by Myriam Pretty MD) Sleep apnea Anxiety disorder ADHD (attention deficit hyperactivity disorder) Spinal cord cysts surgically removed 2011 Surgical History Surgical History (Updated 01/30/25 @ 03:37 by Myriam Pretty MD) History of adenoidectomy History of back surgery H/O sinus surgery History of tonsillectomy and adenoidectomy Family History Family History (Updated 01/06/25 @ 10:51 by Bertha Zaragoza RN) Mother Anxiety Depression Sibling Anxiety Depression Father Diabetes mellitus Social History Social History Years smoked: 2 Smoking status: Former smoker Tobacco type: e-cigarettes/vaping Second hand tobacco smoke exposure: No Smoking end date: 06/15/24 Alcohol intake: current Alcohol use details: social Substance use: never Lack of Transportation: No Lack of Food: Never True Current Housing: I Have Housing Concerned About Future Housing: No Difficulty Paying Gas/Electric Bills: No Difficulty Paying for Meds: No Currently Unemployed: No Education: High School Diploma/GED Difficulty w/ Childcare or Family Care: No Living arrangements: with family Gender identity (if verbalized by the patient): Female Spiritual care concerns: No Meds Home Medications and Allergies Home Medications ?Medication ?Instructions ?Recorded ?Confirmed ?Type omeprazole 40 mg capsule,delayed 40 mg PO DAILY 01/06/25 01/28/25 History release vit no.95-ferrous 1 tablet PO DAILY 01/06/25 01/28/25 History fumarate 28 mg-folic acid 800 mcg tablet () aspirin 81 mg tablet 81 mg PO DAILY 01/28/25 01/28/25 History Allergies Allergy/AdvReac Type Severity Reaction Status Date / Time Sulfa (Sulfonamide Allergy Unknown RASH Verified 01/28/25 17:05 Antibiotics) ITCHING Vital Signs Vital Signs - 24 hr 01/29/25 03:50 01/29/25 05:00 01/29/25 06:00 Temperature 97.8 F Pulse Rate 84 95 Blood Pressure 122/83 139/90 Pulse Oximetry Oxygen Delivery 01/29/25 06:15 01/29/25 06:28 01/29/25 06:30 Temperature Pulse Rate 97 91 Blood Pressure 138/100 H 144/85 H Pulse Oximetry Oxygen Delivery Room Air 01/29/25 07:00 01/29/25 07:30 01/29/25 08:01 Temperature Pulse Rate 96 90 135 H Blood Pressure 118/74 130/85 136/80 Pulse Oximetry Oxygen Delivery 01/29/25 08:25 01/29/25 08:30 01/29/25 09:00 Temperature 98.1 F Pulse Rate 84 83 Blood Pressure 143/82 H 116/67 Pulse Oximetry Oxygen Delivery 01/29/25 09:30 01/29/25 10:00 01/29/25 10:30 Temperature 98 F Pulse Rate 85 74 Blood Pressure 115/76 120/82 Pulse Oximetry Oxygen Delivery 01/29/25 11:00 01/29/25 11:30 01/29/25 11:34 Temperature Pulse Rate 84 102 H 102 H Blood Pressure 137/92 H 130/95 H 146/89 H Pulse Oximetry 97 Oxygen Delivery 01/29/25 11:35 01/29/25 11:36 01/29/25 11:39 Temperature Pulse Rate 113 H 111 H Blood Pressure 163/80 H 140/98 H Pulse Oximetry 98 Oxygen Delivery 01/29/25 11:40 01/29/25 11:42 01/29/25 11:45 Temperature Pulse Rate 102 H 105 H Blood Pressure 154/88 H 135/85 Pulse Oximetry 99 97 Oxygen Delivery 01/29/25 11:50 01/29/25 11:51 01/29/25 11:54 Temperature Pulse Rate 100 97 Blood Pressure 141/99 H 145/85 H Pulse Oximetry 98 Oxygen Delivery 01/29/25 11:55 01/29/25 11:57 01/29/25 12:00 Temperature 98.2 F Pulse Rate 96 96 Blood Pressure 140/82 140/104 H Pulse Oximetry 98 97 Oxygen Delivery 01/29/25 12:03 01/29/25 12:05 01/29/25 12:06 Temperature Pulse Rate 101 H 90 Blood Pressure 136/87 140/94 H Pulse Oximetry 97 Oxygen Delivery 01/29/25 12:09 01/29/25 12:10 01/29/25 12:12 Temperature Pulse Rate 97 92 Blood Pressure 139/92 H 142/88 H Pulse Oximetry 97 Oxygen Delivery 01/29/25 12:15 01/29/25 12:18 01/29/25 12:20 Temperature Pulse Rate 101 H 95 Blood Pressure 138/90 139/94 H Pulse Oximetry 97 98 Oxygen Delivery 01/29/25 12:21 01/29/25 12:24 01/29/25 12:25 Temperature Pulse Rate 98 101 H Blood Pressure 135/75 131/85 Pulse Oximetry 98 Oxygen Delivery 01/29/25 12:27 01/29/25 12:30 01/29/25 12:33 Temperature Pulse Rate 97 85 Blood Pressure 137/91 H 131/80 Pulse Oximetry 98 Oxygen Delivery 01/29/25 12:35 01/29/25 12:36 01/29/25 12:39 Temperature Pulse Rate 93 88 Blood Pressure 126/88 128/96 H Pulse Oximetry 98 97 Oxygen Delivery 01/29/25 12:41 01/29/25 12:42 01/29/25 12:45 Temperature Pulse Rate 94 91 Blood Pressure 129/83 131/85 Pulse Oximetry 98 Oxygen Delivery 01/29/25 12:46 01/29/25 12:48 01/29/25 12:51 Temperature Pulse Rate 101 H 98 Blood Pressure 130/85 138/84 Pulse Oximetry 99 100 Oxygen Delivery 01/29/25 12:54 01/29/25 12:56 01/29/25 12:57 Temperature Pulse Rate 98 90 Blood Pressure 140/83 133/82 Pulse Oximetry 100 Oxygen Delivery 01/29/25 13:00 01/29/25 13:01 01/29/25 13:03 Temperature Pulse Rate 95 93 Blood Pressure 139/89 125/81 Pulse Oximetry 100 Oxygen Delivery 01/29/25 13:06 01/29/25 13:09 01/29/25 13:11 Temperature Pulse Rate 93 96 Blood Pressure 129/80 131/86 Pulse Oximetry 100 100 Oxygen Delivery 01/29/25 13:15 01/29/25 13:16 01/29/25 13:21 Temperature Pulse Rate 93 Blood Pressure 137/75 Pulse Oximetry 100 97 Oxygen Delivery 01/29/25 13:26 01/29/25 13:30 01/29/25 13:31 Temperature Pulse Rate 112 H Blood Pressure 136/76 Pulse Oximetry 99 100 Oxygen Delivery 01/29/25 13:35 01/29/25 13:36 01/29/25 13:38 Temperature Pulse Rate 99 94 95 Blood Pressure 141/99 H 136/83 134/79 Pulse Oximetry 98 Oxygen Delivery 01/29/25 13:40 01/29/25 13:41 01/29/25 13:43 Temperature Pulse Rate 97 88 Blood Pressure 136/82 148/102 H Pulse Oximetry 99 Oxygen Delivery 01/29/25 13:44 01/29/25 13:46 01/29/25 13:48 Temperature Pulse Rate 100 107 H 113 H Blood Pressure 135/82 139/86 136/93 H Pulse Oximetry 96 Oxygen Delivery 01/29/25 13:50 01/29/25 13:51 01/29/25 13:52 Temperature Pulse Rate 98 118 H Blood Pressure 142/77 H 139/99 H Pulse Oximetry 98 Oxygen Delivery 01/29/25 13:55 01/29/25 13:56 01/29/25 13:57 Temperature Pulse Rate 143 H 101 H Blood Pressure 88/56 L 118/88 Pulse Oximetry 99 Oxygen Delivery 01/29/25 13:58 01/29/25 14:00 01/29/25 14:01 Temperature Pulse Rate 89 100 Blood Pressure 134/76 134/84 Pulse Oximetry 98 Oxygen Delivery 01/29/25 14:06 01/29/25 14:10 01/29/25 14:11 Temperature 97.4 F L Pulse Rate Blood Pressure Pulse Oximetry 100 99 Oxygen Delivery 01/29/25 14:11 01/29/25 14:15 01/29/25 14:16 Temperature 97.4 F L Pulse Rate 91 Blood Pressure 119/71 Pulse Oximetry 98 Oxygen Delivery 01/29/25 14:21 01/29/25 14:26 01/29/25 14:30 Temperature Pulse Rate 96 Blood Pressure 109/84 Pulse Oximetry 98 99 Oxygen Delivery 01/29/25 14:31 01/29/25 14:36 01/29/25 14:41 Temperature Pulse Rate Blood Pressure Pulse Oximetry 100 98 99 Oxygen Delivery 01/29/25 14:45 01/29/25 14:46 01/29/25 14:51 Temperature Pulse Rate 85 Blood Pressure 106/80 Pulse Oximetry 98 98 Oxygen Delivery 01/29/25 14:56 01/29/25 15:00 01/29/25 15:01 Temperature Pulse Rate 88 Blood Pressure 123/71 Pulse Oximetry 99 99 Oxygen Delivery 01/29/25 15:06 01/29/25 15:11 01/29/25 15:15 Temperature Pulse Rate 81 Blood Pressure 117/71 Pulse Oximetry 98 98 Oxygen Delivery 01/29/25 15:16 01/29/25 15:21 01/29/25 15:26 Temperature Pulse Rate Blood Pressure Pulse Oximetry 98 98 98 Oxygen Delivery 01/29/25 15:30 01/29/25 15:31 01/29/25 15:36 Temperature Pulse Rate 82 Blood Pressure 123/74 Pulse Oximetry 99 100 Oxygen Delivery 01/29/25 15:41 01/29/25 15:46 01/29/25 15:51 Temperature Pulse Rate 75 Blood Pressure 128/74 Pulse Oximetry 100 99 99 Oxygen Delivery 01/29/25 15:55 01/29/25 15:56 01/29/25 16:00 Temperature 97.6 F Pulse Rate 82 Blood Pressure 130/80 Pulse Oximetry 99 Oxygen Delivery 01/29/25 16:01 01/29/25 16:06 01/29/25 16:11 Temperature Pulse Rate Blood Pressure Pulse Oximetry 99 99 100 Oxygen Delivery 01/29/25 16:15 01/29/25 16:16 01/29/25 16:21 Temperature Pulse Rate 87 Blood Pressure 130/83 Pulse Oximetry 99 100 Oxygen Delivery 01/29/25 16:26 01/29/25 16:30 01/29/25 16:31 Temperature Pulse Rate 79 Blood Pressure 140/87 Pulse Oximetry 100 100 Oxygen Delivery 01/29/25 16:36 01/29/25 16:41 01/29/25 16:46 Temperature Pulse Rate 94 Blood Pressure 129/78 Pulse Oximetry 100 100 99 Oxygen Delivery 01/29/25 16:51 01/29/25 16:56 01/29/25 17:00 Temperature Pulse Rate 98 Blood Pressure 130/93 H Pulse Oximetry 100 100 Oxygen Delivery 01/29/25 17:01 01/29/25 17:06 01/29/25 17:11 Temperature Pulse Rate Blood Pressure Pulse Oximetry 100 99 99 Oxygen Delivery 01/29/25 17:15 01/29/25 17:16 01/29/25 17:21 Temperature Pulse Rate 76 Blood Pressure 117/70 Pulse Oximetry 99 98 Oxygen Delivery 01/29/25 17:26 01/29/25 17:30 01/29/25 17:31 Temperature Pulse Rate 91 Blood Pressure 124/78 Pulse Oximetry 100 100 Oxygen Delivery 01/29/25 17:36 01/29/25 17:41 01/29/25 17:45 Temperature Pulse Rate 83 Blood Pressure 126/82 Pulse Oximetry 99 99 Oxygen Delivery 01/29/25 17:46 01/29/25 17:49 01/29/25 17:51 Temperature 97.8 F Pulse Rate Blood Pressure Pulse Oximetry 99 99 Oxygen Delivery 01/29/25 17:56 01/29/25 18:00 01/29/25 18:01 Temperature 98.4 F Pulse Rate 79 Blood Pressure 126/86 Pulse Oximetry 100 99 Oxygen Delivery 01/29/25 18:06 01/29/25 18:11 01/29/25 18:15 Temperature Pulse Rate 81 Blood Pressure 126/86 Pulse Oximetry 99 99 Oxygen Delivery 01/29/25 18:16 01/29/25 18:21 01/29/25 18:26 Temperature Pulse Rate Blood Pressure Pulse Oximetry 99 98 98 Oxygen Delivery 01/29/25 18:30 01/29/25 18:31 01/29/25 18:36 Temperature Pulse Rate 84 Blood Pressure 123/71 Pulse Oximetry 99 98 Oxygen Delivery 01/29/25 18:41 01/29/25 18:45 01/29/25 18:46 Temperature Pulse Rate 87 Blood Pressure 127/87 Pulse Oximetry 99 97 Oxygen Delivery 01/29/25 18:51 01/29/25 18:56 01/29/25 19:00 Temperature Pulse Rate 91 Blood Pressure 140/96 H Pulse Oximetry 98 99 Oxygen Delivery 01/29/25 19:01 01/29/25 19:06 01/29/25 19:11 Temperature Pulse Rate Blood Pressure Pulse Oximetry 100 99 100 Oxygen Delivery 01/29/25 19:15 01/29/25 19:16 01/29/25 19:21 Temperature Pulse Rate 94 Blood Pressure 138/81 Pulse Oximetry 100 100 Oxygen Delivery 01/29/25 19:26 01/29/25 19:30 01/29/25 19:31 Temperature Pulse Rate 101 H Blood Pressure 125/84 Pulse Oximetry 99 100 Oxygen Delivery 01/29/25 19:36 01/29/25 19:41 01/29/25 19:45 Temperature Pulse Rate 97 Blood Pressure 143/89 H Pulse Oximetry 100 99 Oxygen Delivery 01/29/25 19:46 01/29/25 19:51 01/29/25 19:56 Temperature Pulse Rate Blood Pressure Pulse Oximetry 99 100 100 Oxygen Delivery 01/29/25 20:00 01/29/25 20:01 01/29/25 20:06 Temperature 98 F Pulse Rate 99 Blood Pressure 126/62 Pulse Oximetry 100 100 Oxygen Delivery 01/29/25 20:11 01/29/25 20:15 01/29/25 20:16 Temperature Pulse Rate 84 Blood Pressure 108/70 Pulse Oximetry 100 100 Oxygen Delivery 01/29/25 20:21 01/29/25 20:26 01/29/25 20:30 Temperature Pulse Rate 81 Blood Pressure 120/75 Pulse Oximetry 100 100 Oxygen Delivery 01/29/25 20:31 01/29/25 20:36 01/29/25 20:41 Temperature Pulse Rate Blood Pressure Pulse Oximetry 100 100 100 Oxygen Delivery 01/29/25 20:46 01/29/25 20:51 01/29/25 20:56 Temperature Pulse Rate 143 H Blood Pressure 126/91 H Pulse Oximetry 100 100 100 Oxygen Delivery 01/29/25 21:00 01/29/25 21:01 01/29/25 21:06 Temperature Pulse Rate Blood Pressure 131/109 H Pulse Oximetry 100 100 Oxygen Delivery 01/29/25 21:11 01/29/25 21:15 01/29/25 21:20 Temperature Pulse Rate 100 Blood Pressure 124/79 Pulse Oximetry 100 100 100 Oxygen Delivery 01/29/25 21:25 01/29/25 21:30 01/29/25 21:35 Temperature Pulse Rate 113 H Blood Pressure 123/83 Pulse Oximetry 100 100 99 Oxygen Delivery 01/29/25 21:40 01/29/25 21:45 01/29/25 21:50 Temperature Pulse Rate 98 Blood Pressure 125/79 Pulse Oximetry 99 100 100 Oxygen Delivery 01/29/25 21:55 01/29/25 22:00 01/29/25 22:05 Temperature 99.1 F Pulse Rate 90 Blood Pressure 124/71 Pulse Oximetry 100 100 100 Oxygen Delivery 01/29/25 22:10 01/29/25 22:15 01/29/25 22:20 Temperature Pulse Rate 99 Blood Pressure 131/77 Pulse Oximetry 100 100 100 Oxygen Delivery 01/29/25 22:25 01/29/25 22:30 01/29/25 22:35 Temperature Pulse Rate Blood Pressure Pulse Oximetry 100 100 100 Oxygen Delivery 01/29/25 22:40 01/29/25 22:45 01/29/25 22:50 Temperature Pulse Rate Blood Pressure Pulse Oximetry 100 100 100 Oxygen Delivery 01/29/25 22:55 01/29/25 23:00 01/29/25 23:05 Temperature Pulse Rate Blood Pressure Pulse Oximetry 99 99 99 Oxygen Delivery 01/29/25 23:10 01/29/25 23:15 01/29/25 23:20 Temperature Pulse Rate 110 H Blood Pressure 125/81 Pulse Oximetry 100 99 99 Oxygen Delivery 01/29/25 23:25 01/29/25 23:30 01/29/25 23:35 Temperature Pulse Rate 133 H Blood Pressure 132/79 Pulse Oximetry 99 97 99 Oxygen Delivery 01/29/25 23:40 01/29/25 23:45 01/29/25 23:50 Temperature Pulse Rate 121 H Blood Pressure 120/78 Pulse Oximetry 99 98 99 Oxygen Delivery 01/29/25 23:55 01/30/25 00:00 01/30/25 00:02 Temperature 98.6 F Pulse Rate 114 H Blood Pressure 122/54 L Pulse Oximetry 98 100 96 Oxygen Delivery 01/30/25 00:07 01/30/25 00:15 01/30/25 00:30 Temperature Pulse Rate 109 H 103 H Blood Pressure 130/77 124/60 Pulse Oximetry 98 Oxygen Delivery 01/30/25 00:46 01/30/25 00:47 01/30/25 00:52 Temperature Pulse Rate 112 H Blood Pressure 127/71 Pulse Oximetry 97 94 98 Oxygen Delivery 01/30/25 00:57 01/30/25 01:00 01/30/25 01:02 Temperature 98.9 F Pulse Rate 115 H Blood Pressure 146/81 H Pulse Oximetry 99 99 Oxygen Delivery 01/30/25 01:10 01/30/25 01:11 01/30/25 01:15 Temperature Pulse Rate 113 H Blood Pressure 143/84 H Pulse Oximetry 97 89 L Oxygen Delivery 01/30/25 01:16 01/30/25 01:21 01/30/25 01:26 Temperature Pulse Rate Blood Pressure Pulse Oximetry 99 99 98 Oxygen Delivery 01/30/25 01:30 01/30/25 01:31 01/30/25 01:36 Temperature Pulse Rate 114 H Blood Pressure 140/89 Pulse Oximetry 100 99 Oxygen Delivery 01/30/25 01:38 01/30/25 01:43 01/30/25 01:45 Temperature Pulse Rate 110 H Blood Pressure 130/63 Pulse Oximetry 99 99 Oxygen Delivery 01/30/25 01:48 01/30/25 01:53 01/30/25 01:58 Temperature Pulse Rate 110 H Blood Pressure 151/89 H Pulse Oximetry 99 99 99 Oxygen Delivery 01/30/25 02:00 01/30/25 02:03 01/30/25 02:08 Temperature Pulse Rate 106 H Blood Pressure 142/104 H Pulse Oximetry 100 100 Oxygen Delivery 01/30/25 02:13 01/30/25 02:18 01/30/25 02:23 Temperature Pulse Rate Blood Pressure Pulse Oximetry 99 100 100 Oxygen Delivery 01/30/25 02:28 01/30/25 02:30 01/30/25 02:33 Temperature Pulse Rate 119 H Blood Pressure 132/89 Pulse Oximetry 99 100 Oxygen Delivery 01/30/25 02:38 01/30/25 02:43 01/30/25 02:45 Temperature Pulse Rate 120 H Blood Pressure 124/64 Pulse Oximetry 99 99 Oxygen Delivery 01/30/25 02:48 01/30/25 02:53 01/30/25 02:58 Temperature Pulse Rate Blood Pressure Pulse Oximetry 100 100 100 Oxygen Delivery 01/30/25 03:03 01/30/25 03:08 01/30/25 03:10 Temperature Pulse Rate Blood Pressure Pulse Oximetry 100 99 100 Oxygen Delivery 01/30/25 03:15 01/30/25 03:20 01/30/25 03:26 Temperature Pulse Rate 134 H Blood Pressure 140/88 Pulse Oximetry 100 100 95 Oxygen Delivery 01/30/25 03:26 01/30/25 03:28 Temperature Pulse Rate Blood Pressure Pulse Oximetry 85 L 100 Oxygen Delivery Exam Const: General: healthy appearing, alert and in distress (Epidural has come out and the patient is in significant pain) Orientation/consciousness: patient oriented x3 Resp: Effort & Inspection: normal respiratory effort GI: Inspection: other (Gravid) GI Palp: Yes Soft to palpation and No Tenderness to palpation present (GI) Auscultation: other ( heart rate tracing as per HPI) : External Female Exam: normal external appearance Speculum Exam - Vagina: normal appearance of the vagina Bimanual Exam- Adnexa, other: normal adnexae and No adnexal tenderness Manual OB Exam: dilated 6 cm, effaced 50% and station -2 Amniotic Fluid: clear Urinary Catheter: Urinary Catheter: patent and draining and urine clear Neuro: General: patient oriented x3 Assessment and Plan Assessment and plan (1) 40 weeks gestation of : Code(s): Z3A.40 - 40 weeks gestation of Status: Acute (2) intolerance to labor, delivered, current hospitalization: Code(s): O77.9 - Labor and delivery complicated by stress, unspecified Status: Acute Assessment and Plan: Plan to proceed with primary section under spinal. Due to the difficult stick getting the epidural the patient is aware she may need to go under general if the spinal was not able to be placed.
[2025-01-30] MEDS: ceFAZolin 2 GM in SODIUM CHLORIDE 0.9% IV 50 ML 100 ML IVPB (03:35)
[2025-01-30] MEDS: ACETAMINOPHEN 500 MG TABLET 1000 MG PO ×3 (03:39→18:30)
--- NOTE | 2025-01-30 04:16 | S_PTH ---
PATIENT: Charis Peres LOC: [facility] U#:[id number] AGE/SX: 29/F ROOM: 282 RE01/28/[address]: Myriam Pretty MD : 1995 BED: 00 DIS: 02/01/2025 SPEC #: [id number] RECD: 01/30/25 08:32 STATUS: RICHELLE REQ #: [id number] FRANCES: 01/30/25 04:[address]: Myriam Pretty DEPT: [facility] Surgical RECD BY: Jame Jackson ENTERED: 01/30/25 08:32 SP TYPE: Surgical OTHR DR: Charis FuMD Tissues: A - Placenta Procedures: Hematoxylin and Eosin Stain Gross and Microscopic Level 5
--- NOTE | 2025-01-30 04:36 | P.PCNOB_ITS ---
OB - Delivery Note Procedure Delivery date: 01/30/25 Pre-op diagnosis: Gestational Diabetes (Diet-controlled) and Other ( of labor; 40 weeks) Post-op Diagnosis: Same Induction method: AROM, Per Misoprostol Protocol, Per Pitocin Protocol and Per Cervidil Protocol Delivery monitor: External FHT and Internal Uterine Prior to decision for section, ACOG/SMFM labor guidelines were considered and discussed with the patient and staff. Decision made to proceed with the section.: Yes Procedure Performed: Primary Primary branch: low cervical, transverse Surgeon: Myriam Pretty MD Anesthesia type: Spinal Description of Procedure/Findings: The patient was taken to the operating room and placed under spinal anesthesia in the dorsal supine position with a leftward tilt. She was prepped and draped in the usual sterile fashion. A Pfannenstiel skin incision was made with a scalpel and carried down to the underlying fascia. The fascia was nicked in the midline and extended laterally using Mello scissors. O[place]ner was used to tent the fascia which was then dissected off using sharp and blunt dissection. The peritoneum was tented and entered with Metzenbaum scissors. The incision was extended with blunt traction. The bladder blade was placed and the vesicouterine peritoneum tented and entered with Metzenbaum scissors. The incision was extended laterally and the bladder flap created digitally. The bladder blade was replaced. The lower uterine segment was incised in transverse fashion with the scalpel. The fluid is clear. The infant is in the left occiput anterior position. The vertex was brought into the incision and with the legal administrative assistant applying fundal pressure the vertex delivered. The remainder of the infant delivered quickly in the usual manner. Initially the had good tone and attempt was made at delayed cord clamping however the had decreased tone and did not cry on the abdomen only had some mild whimpering. The cord was clamped and cut and the was handed to the waiting nursery nurse and precision optics technician. The cord gases and cord blood were drawn. The placenta was removed using manual traction. The uterus is exteriorized and cleared of all clots and debris. The uterine incision was closed using 0 Monocryl in a running locked fashion with the same suture used to imbricate. Good hemostasis noted. The cul-de-sac is irrigated and the uterus returned to the abdomen. The gutters were irrigated. The incision was again inspected noted to be hemostatic. The fascia was closed using 0 Vicryl in a running fashion. Subcutaneous tissues were irrigated and made hemostatic using Bovie cautery. Skin incision was closed using 4-0 Vicryl in a subcuticular fashion and glue. The patient was taken to recovery in stable condition. Sponge, needle, and ins trument counts are correct per the OR staff. The patient was given Ancef and Zithromax prior to incision. Specimen: Yes (Placenta) Estimated Blood Loss: 419 Urine Output: 150 Drains: Yes (Beckham catheter) Packing: No Complications: No immediate complications Condition: Stable Disposition: Floor [place] Baby Date of : 01/30/25 Gestational Age by Date: 40 gender: Female Weight (pounds): 7 Weight (ounces): 10 presentation: vertex position: Left Occiput Anterior Placenta delivery description: Spontaneous Cord Vessel Description: 3 Vessels score one minute: 4 score five minutes: 9
--- NOTE | 2025-01-30 04:41 | PM.OBDSVD ---
DS: Admitting Diagnosis Discharge Date 02/01/25 Admitting Diagnosis Intrauterine at 40 weeks Gestational diabetes diet controlled intolerance labor DS: Discharge Diagnosis Discharge Diagnosis (1) intolerance to labor, delivered, current hospitalization: Code(s): O77.9 - Labor and delivery complicated by stress, unspecified Status: Acute (2) Delivery by section using transverse incision of lower segment of uterus: Code(s): O82 - Encounter for delivery without indication Status: Acute OB - DS: Summary OB Procedures : Ultrasound OB Procedures Intrapartum: low cervical, transverse OB Procedures: : None Peripartum Data Infant Delivery Method: Section complications: none Status at Discharge Functional status at discharge: independent ambulation Overall status at discharge: patient is progressing back to baseline Time Spent with Patient Time attestation: Total time spent providing and/or coordinating discharge services: DS: Data Data Completed and Pending Labs on day of discharge: Labs from last 24 hours 01/29/25 01/29/25 01/29/25 23:56 19:58 15:58 POC Capillary Glucose 84 88 71 01/29/25 01/29/25 12:01 08:25 POC Capillary Glucose 94 89 Discharge Plan Discharge Attending physician on discharge: Myriam rPetty Discharging Clinician: Myriam Pretty Anticipated Discharge Date/Time: 02/02/25 04:43 Patient Disposition: Home Activity: may shower, may drive after 2 weeks and pelvic rest Diet: heart healthy Wound Care Instructions: incision open to air Discharge Instructions: Education: Mom and Baby Guide Given to: Mother Follow-Up: Call your delivering provider's office for an appointment to be seen in: 1 Week Mom and baby should come to the [facility] for the follow-up appointment. Appointment Date/Time: February 02, 2025 at 10:00 am What to expect at your follow-up visit: Blood Pressure Check, Physical Assessment Call [phone] if you are unable to keep your appointment time. BREAST CARE: * Wear a snug supportive bra. * For engorgement discomfort: Breast Feeding: * Apply warm moist washcloths * Express milk as needed to relieve engorgement * Wear loose clothing * For sore nipples: * Identify correct latch-on * Apply warm moist washcloths before and after nursing * Air dry nipples after nursing * May apply Lansinoh cream to nipples ABDOMINAL INCISION: (if applicable) * Allow incision to air dry * Do NOT use lotions for powders on your incision * When showering, allow soap and water to run over the incision, but do not wash incision EPISIOTOMY/PERINEAL CARE: * Until bleeding stops, use your yana bottle after urinating * Change your pad frequently throughout the day * No tub baths until seen by your physician - You may shower ACTIVITY: * Rest as much as possible. * Do not exercise or lift anything heavier than your baby (such as laundry or other children.) * Avoid stairs or driving as much as possible. * Do not put anything into the vagina. No douching, tampons, or sexual activity until seen by physician. NOTIFY PHYSICIAN IF YOU HAVE ANY QUESTIONS OR IF ANY OF THE FOLLOWING SYMPTOMS OCCUR: * If your incision becomes red, swollen, or more painful than what you have experienced in the hospital. * If your vaginal bleeding becomes foul smelling. * If your vaginal bleeding becomes more heavy than a period or if your bleeding changes from pink to bright red. However, you may pass an occasional walnut-sized clot once or twice for the first week . * If you experience a sharp, shooting pain in you calves. * If you discover a hard, reddened area on your breast or if you experience flu-like symptoms. DIET: * Eat regular, well-balanced meals. * Drink plenty of fluids daily. If , drink to thirst. Patient Language: Czech Stand Alone Forms: General Discharge Information Follow-up/Referrals: Myriam Pretty MD [Physician, MOLD MAINTENANCE TECHNICIAN] - 1 Week Referral Note: And 6 week Discharge Medications: New oxycodone 5 mg Tablet 5 mg PO Q4H PRN (Reason: Pain Rated 4-6) Qty: 6 0RF Continued PNV no.95-ferrous fumarate-FA [] 28 mg iron- 800 mcg tablet 1 tablet PO DAILY omeprazole 40 mg capsule,delayed release(DR/EC) 40 mg PO DAILY Discontinued aspirin 81 mg tablet 81 mg PO DAILY Date of admission: 01/28/25 16:00 Primary Care Provider: Nickie,Charis Marmolejo Admitting Provider: Myriam Pretty Attending physician on admission: Myriam Pretty Condition: Stable
[2025-01-30] MEDS: KETOROLAC 15 MG/ML VIAL (*BKC) IV PUSH ×3 (05:45→18:30)
[2025-01-30] MEDS: OXYTOCIN 30 UNITS/NS 500 ML 30 UNITS/500 ML BAG 125 UNITS IV CONT (05:46)
[2025-01-30] MEDS: ONDANSETRON INJ 4 MG/2 ML VIAL IV PUSH (08:22)
--- NOTE | 2025-01-30 09:26 | PC.NURSE ---
Consulted with patient to assess needs related to . Discussed with mother her successes, concerns and any questions she has. We reviewed working with the , supporting breast, protecting her nipples with an optimal deep latch, good positioning, and good hand washing. Encouraged understanding the benefits of skin to skin, responding to feeding cues, frequencies of feeding 8-12 times in 24 hours (approximately 2-3 hours), duration of feedings, milk production, intake/output feeding sheet and signs of adequate intake encouraging swallowing at the breast. Reviewed positioning and alignment, supporting breast, off-centered (asymmetrical latch) and leading with the chin with big, open, wide gape. latched optimally to the [left] breast in [cross cradle] position. Education given to the mother of how to visualize the suckling (with good rocking jaw motion) swallows (dropping of the lower jaw) and how to listen for drinking at the breast (the ka sound). The was [able] to maintain latch without discomfort to mother. Nipple care reviewed with optimal latch, good positioning and using clean hands when touching her breast. Resources used to facilitate learning were used from the [visual handouts/ tool/mom and baby guide]. Mother voiced understanding of the education shared, to call for assistance if the infant does not latch or if there is discomfort with . Reported to the Primary RN.
[2025-01-30] MEDS: SIMETHICONE 80 MG TAB.CHEW PO ×2 (12:10→17:45)
[2025-01-30] MEDS: DEXTROSE 5%/0.45% SOD CHL 1,000 ML 125 ML IV CONT (12:14)
[2025-01-30] MEDS: DOCUSATE SODIUM 100 MG CAPSULE PO (17:45)
[2025-01-30] MEDS: LIDOCAINE 5% PATCH 1 PATCH TRANSDERM (19:05)
[2025-01-31] MEDS: KETOROLAC 15 MG/ML VIAL (*BKC) IV PUSH
[2025-01-31 03:38] VITALS: BP 117/68; PULSE 81; RESP 18; TEMP 36.8; O2SAT 96
--- NOTE | 2025-01-31 04:46 | P.PNOB_ITS ---
OB - PN: Subj Subjective Date/time seen: 01/31/25 04:46 Patient comments: no complaints and pain well controlled baby status: doing well OB - PN: Obj Data Labs 01/28/25 16:43 OB - PN A/P Plan day: 1 Plan: routine care Time Spent With Patient Time: Total time spent is greater than 50% in coordination of care (as documented) at patient's floor/unit and/or counseling patient: Exam 2 Narrative: inc c/d/i : Bimanual exam- vagina & uterus: other (Uterus firm, nt @U)
[2025-01-31 05:41] LABS: Hematocrit 25.8 % (37.0-47.0); Hemoglobin 8.4 g/dL (12.0-15.0); Immature Granulocyte Percent A 2.6 % (0-0.5); Lymphocytes Absolute Auto 1.21 K/mm3 (0.9-3.2); Mean Corpuscular HGB Conc 32.6 g/dl (32-36); Mean Corpuscular Hemoglobin 28.8 pg (26-34); Mean Corpuscular Volume 88.4 fl (80-100); Nucleated Red Blood Cells Absolute Auto 0.000 K/mm3 (0.0-0.012); Nucleated Red Blood Cells Perc 0.0 % (0.0-0.2); Platelet Count Result 163 k/mm3 (150-375); Red Blood Count 2.92 M/mm3 (4.2-5.4); White Blood Count 16.1 K/mm3 (4.5-10.0)
[2025-01-31] MEDS: ACETAMINOPHEN 500 MG TABLET 1000 MG PO ×4 (06:34→19:28)
[2025-01-31] MEDS: IBUPROFEN 600 MG TABLET PO ×3 (06:34→19:28)
[2025-01-31] MEDS: oxyCODONE HCL (*CRX) 5 MG TAB IR PO ×2 (06:44→12:54)
[2025-01-31 07:30] VITALS: BP 135/69; PULSE 112; RESP 16; TEMP 36.5; O2SAT 97
[2025-01-31] MEDS: DOCUSATE SODIUM 100 MG CAPSULE PO ×2 (08:43→16:41)
[2025-01-31] MEDS: MULTIVIT/MIN/PREN/FOL AC/IRON TABLET 1 TAB PO (08:43)
[2025-01-31] MEDS: SIMETHICONE 80 MG TAB.CHEW PO ×3 (08:43→16:41)
--- NOTE | 2025-01-31 09:52 | PC.NURSE ---
On 01/31/25, the student, Nyla Mojica, provided care and completed [facility] documentation on this patient. I have reviewed the student's documentation and agree with the findings.
--- NOTE | 2025-01-31 11:20 | PC.NURSE ---
Consulted with patient to assess needs related to . Discussed with mother her successes, concerns and any questions she has. We reviewed working with the , supporting breast, protecting her nipples with an optimal deep latch, good positioning, and good hand washing. Encouraged understanding the benefits of skin to skin, responding to feeding cues, frequencies of feeding 8-12 times in 24 hours (approximately 2-3 hours), duration of feedings, milk production, intake/output feeding sheet and signs of adequate intake encouraging swallowing at the breast. Reviewed positioning and alignment, supporting breast, off-centered (asymmetrical latch) and leading with the chin with big, open, wide gape. latched optimally to the [right] breast in [cradle] position. Education given to the mother of how to visualize the suckling (with good rocking jaw motion) swallows (dropping of the lower jaw) and how to listen for drinking at the breast (the ka sound). The was [able] to maintain latch without discomfort to mother. Nipple care reviewed with optimal latch, good positioning and using clean hands when touching her breast. Resources used to facilitate learning were used from the [visual handouts/ tool/mom and baby guide]. Mother voiced understanding of the education shared, to call for assistance if the infant does not latch or if there is discomfort with . Reported to the Primary RN.
--- NOTE | 2025-01-31 14:42 | WPDANLDPN2 ---
Anes-Prog Note L&D Date/Time: 01/31/25 14:42 Comfortable throughout: labor and section Neuraxial method: epidural Epidural/Spinal procedure site: clean & non-tender Neuro status: Neuro function grossly intact. Cardiovascular status: normal Respiratory status: normal Airway patency: baseline Mental status: baseline Post-Op hydration status: normal Vital Signs: Last Vital Signs Temp 97.7 F 01/31/25 07:30 Pulse 112 H 01/31/25 07:30 Resp 16 01/31/25 07:30 BP 135/69 01/31/25 07:30 Pulse Ox 97 01/31/25 07:30 O2 Del Method Room Air 01/30/25 19:05 Pain score (VAS): 0/10 I/O: Intake & Output 01/30/25 01/31/25 01/31/25 23:59 07:59 15:59 Intake Total 1000 480 Output Total 700 1600 Balance -700 -600 480 Patient feedback: Patient satisfied with anesthetic care.
--- NOTE | 2025-01-31 14:44 | WPDANLDNPN2 ---
Anes-Prog Note L&D-Neuraxial Date/Time: 01/31/25 14:44 Neuraxial medications: epidural PF morphine Opiod-related complaints: none Patient feedback: Patient satisfied with post-operative pain management.
[2025-01-31 19:20] VITALS: BP 129/88; PULSE 97; RESP 20; TEMP 36.5; O2SAT 100
[2025-02-01] MEDS: oxyCODONE HCL (*CRX) 5 MG TAB IR PO ×2 (00:18→09:08)
[2025-02-01] MEDS: ACETAMINOPHEN 500 MG TABLET 1000 MG PO ×2 (01:53→09:02)
[2025-02-01] MEDS: IBUPROFEN 600 MG TABLET PO ×2 (01:54→09:00)
--- NOTE | 2025-02-01 07:45 | P.PNOB_ITS ---
OB - PN: Subj Subjective Date/time seen: 02/01/25 07:45 Patient comments: no complaints and pain well controlled baby status: doing well OB - PN: Obj Data Labs 01/31/25 03:49 OB - PN A/P Plan day: 2 Plan: routine care, discharge home and other (uncertain control) Time Spent With Patient Time: Total time spent is greater than 50% in coordination of care (as documented) at patient's floor/unit and/or counseling patient: Exam 2 Narrative: inc c/d/i : Bimanual exam- vagina & uterus: other (Uterus firm, nt @U)
[2025-02-01 07:55] VITALS: BP 133/88; PULSE 88; RESP 16; TEMP 36.8; O2SAT 98
[2025-02-01] MEDS: DOCUSATE SODIUM 100 MG CAPSULE PO (09:00)
[2025-02-01] MEDS: SIMETHICONE 80 MG TAB.CHEW PO (09:01)
[2025-02-01] MEDS: MULTIVIT/MIN/PREN/FOL AC/IRON TABLET 1 TAB PO (09:01)
[2025-02-01] MEDS: MEASLES,MUMPS,RUBELLA VACCINE 0.5 ML VIAL SUB-Q (09:02)
--- NOTE | 2025-02-01 09:25 | PC.NURSE ---
Consulted with mother concerning needs and she shared her ability to independently latch infant optimally without pain. Per mother she did end up using her breast pump last night and baby did receive supplement per her choice, she is going to breast and bottle feed at home. Mother is feeding appropriately for growth of infant and understands stimulating infant to eat if needed. has had appropriate feedings in the last 24 hours meets the outcomes for weight, output, blood sugar and jaundice at this time. Reinforced understanding of milk production, transition of milk, signs of adequate intake, transition of stool, prevention/relief of engorgement, plugged ducts, mastitis, responsive watching for feeding cues, the different methods of stimulating infant to breastfeed 1-3 hours after the start of the last feeding, community resources, and when to call a provider using the resource of the feeding sheet along with the mom and baby guide. Mother voiced understanding of the information shared, is confident to continue effectively feed her at home, when to call for assistance, denies any additional assistance or education at this time. Reported to the Primary RN.
[2025-02-02 10:13] VITALS: BP 137/86; PULSE 83; RESP 18; TEMP 36.6; O2SAT 100
== END 2025-02-01 10:35 | disposition home or self-care (01) | DRG 540 ==
LOC: ANHLDR 01-30 04:43 → ANHOB2 01-30 07:13
PROVIDERS: Admitting Provider Obstetrics & Gynecology Gynecology; PCP Emergency Medicine; Visit Provider Obstetrics & Gynecology Gynecology
PROC: 10D00Z1 Extraction of Products of Conception, Low, Open Approach (ICD-10-PCS; CPT 59514; principal; 2025-01-30 03:30)
DX: O24.420 Gestational diabetes mellitus in childbirth, diet controlled (principal); O76 Abnormality in fetal heart rate and rhythm complicating labor and delivery; Z3A.40 40 weeks gestation of pregnancy; Z37.0 Single live birth
CPT/HCPCS: 36415; 82948; 85025; 86593; 86850; 86900; 86901; 88307; 90710; J0690; A9270; J0456; J1885; J2210; J2274; J2405; J2590; J2795; J7030; J7050; J7120

== ENCOUNTER 2025-02-06 13:13 | Outpatient (CLI) | payer OTHER, SELFPAY ==
[2025-02-06 13:38] LABS: Hematocrit 28.1 % (37.0-47.0); Hemoglobin 9.0 g/dL (12.0-15.0); Immature Granulocyte Percent A 6.8 % (0-0.5); Lymphocytes Absolute Auto 2.16 K/mm3 (0.9-3.2); Mean Corpuscular HGB Conc 32.0 g/dl (32-36); Mean Corpuscular Hemoglobin 28.3 pg (26-34); Mean Corpuscular Volume 88.4 fl (80-100); Nucleated Red Blood Cells Absolute Auto 0.000 K/mm3 (0.0-0.012); Nucleated Red Blood Cells Perc 0.0 % (0.0-0.2); Platelet Count Result 409 k/mm3 (150-375); Red Blood Count 3.18 M/mm3 (4.2-5.4); White Blood Count 14.4 K/mm3 (4.5-10.0)
[2025-02-06 13:50] LABS: Alanine Aminotransferase 44 U/L (6-35); Albumin Level 3.6 g/dL (3.5-5.1); Alkaline Phosphatase 111 U/L (38-126); Anion Gap 6 mmol/L (4-12); Aspartate Amino Transferase 32 U/L (14-36); Bilirubin,Total 0.5 mg/dL (0.2-1.3); Blood Urea Nitrogen 13 mg/dL (7-17); Calcium 9.0 mg/dL (8.4-10.2); Carbon Dioxide 21 mmol/L (22-30); Chloride 109 mmol/L (98-107); Estimated Glomerular Filt Rate > 60; Glucose 76 mg/dL (65-110); Potassium 4.1 mmol/L (3.4-5.0); Sodium 136 mmol/L (137-145); Total Protein 6.9 g/dL (6.3-8.2); Uric Acid 5.5 mg/dL (2.5-7.5)
== END 2025-02-06 13:14 | disposition home or self-care (01) ==
LOC: ANHLAB 13:16
PROVIDERS: PCP Emergency Medicine
DX: O16.5 Unspecified maternal hypertension, complicating the puerperium (principal)
CPT/HCPCS: 36415; 80053; 83615; 84550; 85025

== ENCOUNTER 2025-02-08 13:07 | Outpatient (CLI) | payer OTHER, SELFPAY | END 2025-02-08 13:08 | disposition home or self-care (01) | PROVIDERS: PCP Emergency Medicine | DX: O16.5 Unspecified maternal hypertension, complicating the puerperium (principal) | CPT/HCPCS: 84156 ==